=== PATIENT | male | born 1970 | race Two or more races ===

== ENCOUNTER 2019-07-03 17:41 | Inpatient (IN) | payer MEDICAID ==
[~2019-07-03] VITALS: Ht 172.7 cm; Wt 69.4 kg
[2019-07-03 17:45] VITALS: BP 136/84
--- NOTE | 2019-07-03 17:45 | NUR ---
ED Nurse Note: Pt came in confused and sleepy. VSS, Patient biba RA [id number] c/o ETOH, patient was found laying down on the ground with a busted lower lip
--- NOTE | 2019-07-03 18:33 | Diagnostic Imaging Report ---
Indications: Altered mental status Technique: Spiral acquisitions obtained through the brain. Angled axial and coronal 5 x 5 mm slices were reconstructed. Total dose length product 1393.62 mGycm. CTDI vol(s) 70.38 mGy. Dose reduction achieved using automated exposure control Comparison: None. Findings: No acute intracranial hemorrhage or edema. No mass effect or midline shift. Normal hardy-white differentiation. Slightly prominent for age ventricles and extra axial CSF spaces. Mild periventricular deep white matter low-attenuation consistent with chronic microvascular ischemic changes noted Questionable minimal left supraorbital scalp contusion. Intact calvarium. Visualized orbits and sinuses are unremarkable. The mastoids are clear. Impression: Cerebral volume loss and periventricular deep white matter ischemic changes, mild but striking for age Negative for acute intracranial bleed or mass effect This agrees with the preliminary interpretation provided overnight by [facility] teleradiology service. The CT scanner at [facility] is accredited by the [employer] and the scans are performed using protocols designed to limit radiation exposure to as low as reasonably achievable to attain images of sufficient resolution adequate for diagnostic evaluation.
[2019-07-03 18:43] LABS: ANION GAP 10 mmol/L (5-15); BLOOD UREA NITROGEN 3 mg/dL (7-18); CALCIUM 7.4 MG/DL (8.5-10.1); CARBON DIOXIDE 23 MMOL/L (21-32); CHLORIDE 99 MMOL/L (98-107); CREATININE 0.8 MG/DL (0.55-1.30); POTASSIUM 3.5 MMOL/L (3.5-5.1); SODIUM 132 MMOL/L (136-145)
[2019-07-03 18:55] LABS: ALANINE AMINOTRANSFERASE 22 U/L (12-78); ALBUMIN 1.2 G/DL (3.4-5.0); ALBUMIN/GLOBULIN RATIO 0.2 (1.0-2.7); ALKALINE PHOSPHATASE 172 U/L (46-116); ASPARTATE AMINO TRANSFERASE 83 U/L (15-37); BILIRUBIN,TOTAL 1.7 MG/DL (0.2-1.0)
[2019-07-03 18:57] LABS: BILIRUBIN,DIRECT 1.1 MG/DL (0.0-0.3)
--- NOTE | 2019-07-03 19:15 | NUR ---
ED Nurse Note: Recieved report to resume care, pt in bed awake and alert and slightly drowsy, on cardiac monitoring, mild tachycardia, pt has patent iv line intact and patent, pt also with tachypnea, pt has dried blood on mouth, pt denies cp and c/o " a little" abdominal pain, pt has very critical hemoglobin and hematocrit level, will prepare for blood transfusion and hospital admission.
[2019-07-03 19:45] VITALS: BP 116/91
[2019-07-03 19:45] LABS: HEMATOCRIT 14.3 % (42.0-52.0); MEAN CORPUSCULAR VOLUME 83 FL (80-99); PLATELET COUNT 93 K/UL (150-450); RED BLOOD COUNT 1.71 M/UL (4.70-6.10); RED CELL DISTRIBUTION WIDTH 19.5 % (11.6-14.8); WHITE BLOOD COUNT 8.3 K/UL (4.8-10.8)
[2019-07-03 19:47] LABS: HEMOGLOBIN 4.2 G/DL (14.2-18.0)
[2019-07-03 19:50] LABS: INR 1.7 (0.9-1.1)
[2019-07-03 20:35] VITALS: BP 114/76
--- NOTE | 2019-07-03 20:40 | NUR ---
ED Nurse Note: PT STARTED ON BLOOD TRANSFUSION OF PRBC, CONSENT SIGNED, PT STATES HE HAS HAD BEFORRE, DENIES ANY CHAGNES, NO CP, V/S STABLE, PT ON CARDIAC MONITORING, STAYED AT BEDSIDE FIRST 15 MINUTES OF TRANSFUSION, NO S/S OF ADVERSE REACTION NOTED, WILL CONTINUE TO CLOSELY MONITOR PER PROTOCOL.
[2019-07-03] MEDS ORDERED: NKM (20:45)
[2019-07-03 21:30] VITALS: BP 122/73
--- NOTE | 2019-07-03 21:30 | NUR ---
ED Nurse Note: PLACED CALL TO FLOOR UNIT SDU FOR REPORT, WAS INFORMED BY JOSEFINA CANTRELL THAT NURSE IS AT BATHROOM AND WILL CALL BACK, WAITING FOR RETURN CALL FROM JOSEFINA JARAMILLO.
--- NOTE | 2019-07-03 21:31 | Emergency Room Report ---
History of Present Illness General Chief Complaint: Alcohol Intoxication Source: Patient Present Illness HPI 48-year-old male presents ED for evaluation. Brought in by EMS. Found down today. Appears intoxicated. Abrasion to lip. Unable to provide any additional history at this time. Tachycardic. No other aggravating relieving factors. No other associated symptoms Allergies: Coded Allergies: No Known Allergies (Unverified , 07/03/19) Patient History Past Medical History: none Past Surgical History: none Pertinent Family History: none Social History: Reports: alcohol use; Denies: smoking, drug use Immunizations: UTD Reviewed Nursing Documentation: PMH: Agreed; PSxH: Agreed Nursing Documentation-PMH Past Medical History: No Stated History Review of Systems All Other Systems: limited Physical Exam Vital Signs Date Time Temp Pulse Resp B/P (MAP) Pulse Ox O2 Delivery O2 Flow Rate FiO2 07/03/19 17:35 98.4 96 18 136/84 (101) 99 Room Air Sp02 EP Interpretation: reviewed, normal General Appearance: no apparent distress, lethargic, other - intoxicated Head: normocephalic Eyes: bilateral eye normal inspection, bilateral eye PERRL ENT: normal ENT inspection Neck: normal inspection Respiratory: chest non-tender, lungs clear, normal breath sounds, speaking full sentences Cardiovascular #1: regular rate, rhythm, no edema Gastrointestinal: normal bowel sounds, non tender, soft, non-distended, no guarding, no rebound Rectal: deferred Genitourinary: no CVA tenderness Musculoskeletal: other - intoxicated Neurologic: other - intoxicated Psychiatric: other - intxoicated Skin: no rash Lymphatic: normal inspection Procedures Critical Care Time Critical Care Time i. I feel this is a highly complex case requiring extensive working including EKG/Rhythm strip, Xray/CT/US, Blood/urine lab work, repeat exams while in ED, and administration of strong opiates/narcotics for pain control, admission to hospital or close patient follow up. Total time: 60 min bedside evaluation and treatment excludes procedures (EKG). Reason for critical care: alcohol intoxication, anemia, Possible complications: hypotension, hypertension, KS, shock, arrhythmias, metabolic acidosis, end organ damage, respiratory failure. Interventions: labs, EKG, CT head, IVFs, guiac test, blood transfusion Course: Presenting with intoxication. Found down. CT head negative. Hemoglobin 4.2. Alcohol elevated, LFTs elevated, guaiac negative. Given IV fluids. Blood transfusion started. Vitals stable Consultations: nursing staff, EMS, family Performed by: Dr Aaron Tolerated well condition = serious j. because of unstable vital signs this patient had a condition that could potentially threaten life or limb. I feel this is a critical patient who required my full attention while patient was considered critical. Total Critical Care Time excluding procedures was greater than 60 minutes Medical Decision Making Diagnostic Impression: Primary Impression: Acute alcoholic intoxication Qualified Codes: F10.929 - Alcohol use, unspecified with intoxication, unspecified Additional Impression: Anemia Qualified Codes: D64.9 - Anemia, unspecified ER Course Hospital Course 48 yo M presents to ED AMS. found down. Differential diagnoses include: intracranial injury, ETOH, psychosis Clinical course Patient placed on stretcher. After initial history and physical I ordered labs , EKG, CT head, IVFs Labs- Hb 4.2, LFTs elevated, ETOH elevated EKG - sinus tachycardia no acute ischemic changes interpreted by me CT Head - no acute process Rectal exam performed. Guaiac negative. PRBCs ordered. IV fluids continued. Vitals stable Patient admitted to Dr Gallo's service for further care and support Diagnosis - acute alcohol intoxication, anemia admitted to SDU in serious conditoin Labs Test 07/03/19 18:07 07/03/19 18:55 Sodium Level 132 MMOL/L (136-145) Potassium Level 3.5 MMOL/L (3.5-5.1) Chloride Level 99 MMOL/L (98-107) Carbon Dioxide Level 23 MMOL/L (21-32) Anion Gap 10 mmol/L (5-15) Blood Urea Nitrogen 3 mg/dL (7-18) Creatinine 0.8 MG/DL (0.55-1.30) Estimat Glomerular Filtration Rate > 60 mL/min (>60) Glucose Level 95 MG/DL (74-106) Calcium Level 7.4 MG/DL (8.5-10.1) Total Bilirubin 1.7 MG/DL (0.2-1.0) Direct Bilirubin 1.1 MG/DL (0.0-0.3) Aspartate Amino Transf (AST/SGOT) 83 U/L (15-37) Alanine Aminotransferase (ALT/SGPT) 22 U/L (12-78) Alkaline Phosphatase 172 U/L (46-116) Total Protein 8.4 G/DL (6.4-8.2) Albumin 1.2 G/DL (3.4-5.0) Globulin 7.2 g/dL Albumin/Globulin Ratio 0.2 (1.0-2.7) Salicylates Level < 3.0 ug/mL (2.8-20) Acetaminophen Level < 2 MCG/ML (10-30) Serum Alcohol 267 mg/dL White Blood Count 8.3 K/UL (4.8-10.8) Red Blood Count 1.71 M/UL (4.70-6.10) Hemoglobin 4.2 G/DL (14.2-18.0) Hematocrit 14.3 % (42.0-52.0) Mean Corpuscular Volume 83 FL (80-99) Mean Corpuscular Hemoglobin 24.6 PG (27.0-31.0) Mean Corpuscular Hemoglobin Concent 29.5 G/DL (32.0-36.0) Red Cell Distribution Width 19.5 % (11.6-14.8) Platelet Count 93 K/UL (150-450) Mean Platelet Volume 6.7 FL (6.5-10.1) Neutrophils (%) (Auto) % (45.0-75.0) Lymphocytes (%) (Auto) % (20.0-45.0) Monocytes (%) (Auto) % (1.0-10.0) Eosinophils (%) (Auto) % (0.0-3.0) Basophils (%) (Auto) % (0.0-2.0) Differential Total Cells Counted 100 Neutrophils % (Manual) 85 % (45-75) Lymphocytes % (Manual) 8 % (20-45) Monocytes % (Manual) 4 % (1-10) Eosinophils % (Manual) 0 % (0-3) Basophils % (Manual) 0 % (0-2) Metamyelocytes % 2 % (0-0) Band Neutrophils 1 % (0-8) Nucleated Red Blood Cells 2 /100 WBC Platelet Estimate Decreased Platelet Morphology Normal Polychromasia 2+ Hypochromasia 3+ Anisocytosis 3+ Target Cells 1+ Schistocytes 1+ Prothrombin Time 17.3 SEC (9.30-11.50) Prothromb Time International Ratio 1.7 (0.9-1.1) Activated Partial Thromboplast Time 39 SEC (23-33) EKG Diagnostic Results Rate: tachycardiac Rhythm: NSR ST Segments: no acute changes ASA given to the pt in ED: No Rhythm Strip Diag. Results EP Interpretation: yes Rhythm: NSR, no PVC's, no ectopy CT/MRI/US Diagnostic Results CT/MRI/US Diagnostic Results : Imaging Test Ordered: CT Head Impression no acute process Last Vital Signs Date Time Temp Pulse Resp B/P (MAP) Pulse Ox O2 Delivery O2 Flow Rate FiO2 07/03/19 20:35 98.2 118 30 114/76 95 Room Air Status: improved Disposition: ADMITTED INPATIENT Condition: Serious Referrals: NOT CHOSEN IPA/,REFERRING (PCP) Deangelo Aaron MD Jul 03, 2019 21:31
--- NOTE | 2019-07-03 21:46 | NUR ---
ED Nurse Note: RECIEVED RETURN CALL FROM JOSEFINA JARAMILLO ON UNIT FOR ADMISSION, PT CONTINUES TO REST QUIETLY IN BED, AWAKE AND ALERT, IV SITE INTACT AND PATENT WITH PRBC'S TRANSFUSING, PT TOLERATING WELL, FADYS CP, REMAINS WITH ABDOMINAL PAIN AT 6/10, NO EMESIS BUT CONTINUES TO SPIT BLOOD TINGED SPUTUM, PT UNDRESSED, VERY DIRTY AND DISCHEVELED, NO OPEN WOUNDS, NOTED WITH BILAT LE EDEMA AND SEVERE ASCITIES, MD IS AWARE, PT BEING TAKEN TO FLOOR UNIT FOR ADMISISON, NAD NOTED DURING PT TRANSPORT VIA GURNEY AND ACLS PROTOCOLS WITH RN AND ER-TECH, PT HAS ALL BELONGINGS AND BLOOD TRANSFUSING VIA PUMP.
--- NOTE | 2019-07-03 22:00 | NUR ---
NURSE NOTES: [facility] called and gave report. awaiting pt arrival.
[2019-07-03 22:15] VITALS: BP 124/76
--- NOTE | 2019-07-03 22:15 | NUR ---
NURSE NOTES: blood from ER still transfusing.
--- NOTE | 2019-07-03 22:15 | NUR ---
NURSE NOTES: Pt brought up with Monica Hayden RN and charles gant. pt brought up with all belongings. pt vital signs is stable. pt is alert and oriented times 3, able to follow simple commands. pt pigment mixer currently shows ST, no other abnormalities noted. pt is on room air, able to sat at 100%, no abnormalities noted. pt abdomen appears round and hard, will endorse to admitting MD ball. bed locked, low, armed, bed rails up times 3, call light within reach. will establish plan of care.
--- NOTE | 2019-07-03 22:33 | NUR ---
NURSE NOTES: called MD Deshaun Lindsey for admitting orders, left a message. awaiting a call back. awaiting new orders.
--- NOTE | 2019-07-03 22:50 | NUR ---
NURSE NOTES: MD Moreno called in behalf of MD Meade. he gave admitting orders.
--- NOTE | 2019-07-03 23:50 | NUR ---
NURSE NOTES: 1st U PRBC sent back to lab, transfusion complete.
[2019-07-04] VITALS: BP 122/73
--- NOTE | 2019-07-04 00:05 | NUR ---
NURSE NOTES: 2nd unit blood started transfusing.
--- NOTE | 2019-07-04 02:43 | NUR ---
NURSE NOTES: 2nd U PRBC sent back to lab. transfusion complete.
[2019-07-04 04:00] VITALS: BP 121/81
[2019-07-04 05:37] LABS: HEMATOCRIT 23.8 % (42.0-52.0); HEMOGLOBIN 7.1 G/DL (14.2-18.0); MEAN CORPUSCULAR VOLUME 87 FL (80-99); PLATELET COUNT 97 K/UL (150-450); RED BLOOD COUNT 2.73 M/UL (4.70-6.10); RED CELL DISTRIBUTION WIDTH 18.9 % (11.6-14.8); WHITE BLOOD COUNT 8.5 K/UL (4.8-10.8)
[2019-07-04 06:19] LABS: ALANINE AMINOTRANSFERASE 23 U/L (12-78); ALBUMIN 1.3 G/DL (3.4-5.0); ALBUMIN/GLOBULIN RATIO 0.2 (1.0-2.7); ALKALINE PHOSPHATASE 168 U/L (46-116); ANION GAP 8 mmol/L (5-15); ASPARTATE AMINO TRANSFERASE 89 U/L (15-37); BILIRUBIN,TOTAL 2.7 MG/DL (0.2-1.0); BLOOD UREA NITROGEN 2 mg/dL (7-18); CALCIUM 7.4 MG/DL (8.5-10.1); CARBON DIOXIDE 23 MMOL/L (21-32); CHLORIDE 103 MMOL/L (98-107); CREATININE 0.7 MG/DL (0.55-1.30); POTASSIUM 3.3 MMOL/L (3.5-5.1); SODIUM 134 MMOL/L (136-145)
[2019-07-04 06:24] LABS: BILIRUBIN,DIRECT 1.4 MG/DL (0.0-0.3)
--- NOTE | 2019-07-04 06:31 | NUR ---
NURSE NOTES: called MD ball office. relayed a message pt Potassium is 3.3. answering service stated they will contact land acquisition manager . awaiting new orders.
--- NOTE | 2019-07-04 07:29 | NUR ---
NURSE NOTES: Received report from JOSEFINA Jose. Patient is resting in bed, in stable condition. No s/sx of SOB, breathing is even and unlabored, room air. Denies any presence of pain or discomfort at this time. Patient noted with scab on bottom lip, noted upon admission. Bed is in lowest position, brakes engaged. Call light is kept within easy reach. Will continue to monitor patient.
[2019-07-04 08:00] VITALS: BP 116/76
[2019-07-04] MEDS: Pantoprazole Inj IVP SCH ×2 (08:56→20:38)
--- NOTE | 2019-07-04 09:00 | NUR ---
NURSE NOTES: Dr. Guo seen and examined patient. Ordered Banana bag x 1, thiamine 100 mg PO QD, Folic acid 1 tab PO QD, D5 NS 50 cc/hr. Orders entered, noted, and carried out. Will continue to monitor patient.
--- NOTE | 2019-07-04 09:10 | NUR ---
NURSE NOTES: Patient noted with cut on bottom lip, per patient states fell and hit his lip prior to coming to hospital; Head CT results noted. Assessed oral cavity, no active bleeding noted. Charge nurse aware. Will continue to monitor patient.
--- NOTE | 2019-07-04 09:41 | NUR ---
CASE MANAGEMENT: INITIAL REVIEW 48 YO M [facility] FROM [facility] [employer] CC: INJURY TO LOWER LIP. ETOH INTOXICATION. PMHx: NONE STATED SI:ETHANOL INTOXICATION. T 98.4 HR 96 RR 18 B/P 136/84 SATS 99% ON RA HGB 4.2 HCT 14.3 NA 132 BUN 3 CA 7.4 TBILI 1.7 DBILI 1.1 AST 83 ALP 172 UTOX (+ALCOHOL 267) IS: NS BOLUS X2 CT HEAD Impression: Cerebral volume loss and periventricular deep white matter ischemic changes, mild but striking for age. Negative for acute intracranial bleed or mass effect. PATIENT ADMITTED TO SDU 07/03/2019 @ 7526 DCP: PATIENT TO BE DISCHARGED TO APPROPRIATE LOCATION ONCE MEDICALLY CLEARED. PLAN OF CARE: VENOUS DUPLEX Addendum: 07/04/19 at 1729 by Amber Phillips CM INTERQUAL MET
[2019-07-04] MEDS: Thiamine 100mg tab ORAL SCH (10:14)
[2019-07-04] MEDS ORDERED: Thiamine 100mg in D5W 55ml IVPB ONE ×2 (11:00→19:00)
[2019-07-04] MEDS ORDERED: Folic Acid 1 MG, Magnesium Sulfate 2,000 MG, Multivitamin - 12 Injection 10 ML in Sodiu... IV ONE ×2 (11:00→19:00)
--- NOTE | 2019-07-04 11:11 | NUR ---
XRAY IS DELAYED, TOLD TO RETURN AFTER ULTRASOUND IS COMPLETE-NM/JT/NF
[2019-07-04 12:00] VITALS: BP 139/83
[2019-07-04 12:24] LABS: FERRITIN 46 NG/ML (8-388)
--- NOTE | 2019-07-04 12:37 | Cardiology Report ---
APPROVED REPORT EKG Measurement Heart [id number] Sinus tachycardia Anterolateral infarct, age undetermined Abnormal ECG
--- NOTE | 2019-07-04 12:52 | Diagnostic Imaging Report ---
Indication: Abdominal pain Technique: Supine view of the abdomen Comparison: none Findings: The abdomen is diffusely dense. This, plus central location of small bowel gas, suggests considerable ascites fluid is present. Small bowel loops are gas filled, upper limits of normal in caliber but not frankly dilated except for a single prominent small bowel loop in the left upper quadrant. Impression: Evidence of massive ascites Prominent gas-filled central small bowel loops, with single dilated left upper quadrant small bowel. Findings are nonspecific, could indicate ileus. Partial/early small bowel obstruction also possible
[2019-07-04] MEDS: D5NS 1,000 ML IV SCH (13:09)
[2019-07-04 13:18] LABS: IRON 80 ug/dL (50-175); TOTAL IRON BINDING CAPACITY 106 ug/dL (250-450)
--- NOTE | 2019-07-04 13:18 | General Progress Note ---
Assessment/Plan Problem List: (1) Anemia ICD Codes: D64.9 - Anemia, unspecified SNOMED: [id number] Qualifiers: Qualified Codes: D64.9 - Anemia, unspecified (2) Acute alcoholic intoxication ICD Codes: F10.929 - Alcohol use, unspecified with intoxication, unspecified SNOMED: 79447202, [id number] Qualifiers: Qualified Codes: F10.929 - Alcohol use, unspecified with intoxication, unspecified Assessment/Plan: npo vit k fu stool ob no obvious GIB per nurses banana bag fu labs paracentesis if needed protonix Subjective ROS Limited/Unobtainable: Yes Allergies: Coded Allergies: No Known Allergies (Unverified , 07/03/19) Objective Last 24 Hour Vital Signs Date Time Temp Pulse Resp B/P (MAP) Pulse Ox O2 Delivery O2 Flow Rate FiO2 07/04/19 12:00 96.8 99 19 139/83 (101) 07/04/19 08:00 Room Air 07/04/19 08:00 98.0 102 19 116/76 (89) 07/04/19 07:37 96 07/04/19 04:00 99 07/04/19 04:00 98.4 100 19 121/81 (94) 07/04/19 04:00 Room Air 07/04/19 00:00 98.0 91 19 122/73 (89) 07/04/19 00:00 99 07/04/19 00:00 Room Air 07/03/19 22:17 103 07/03/19 22:15 98.1 105 19 124/76 (92) 07/03/19 22:15 Room Air 07/03/19 21:55 98.2 111 26 122/73 96 Room Air 07/03/19 21:30 98.2 111 26 122/73 96 Room Air 07/03/19 20:35 98.2 118 30 114/76 95 Room Air 07/03/19 19:45 98.4 111 26 116/91 97 Room Air 07/03/19 17:45 112 30 Room Air 07/03/19 17:45 98.4 109 36 136/84 99 Room Air 07/03/19 17:35 98.4 96 18 136/84 (101) 99 Room Air Intake and Output 07/03/19 07/04/19 19:00 07:00 Intake Total 0 ml 1000 ml Output Total 400 ml Balance 0 ml 600 ml Intake Oral 0 ml IV Total 1000 ml Output Urine Total 400 ml Laboratory Tests 07/03/19 18:07: Sodium Level 132L, Potassium Level 3.5, Chloride Level 99, Carbon Dioxide Level 23, Anion Gap 10, Blood Urea Nitrogen 3L, Creatinine 0.8, Estimat Glomerular Filtration Rate > 60, Glucose Level 95, Calcium Level 7.4L, Total Bilirubin 1.7H , Direct Bilirubin 1.1H, Aspartate Amino Transf (AST/SGOT) 83H, Alanine Aminotransferase (ALT/SGPT) 22, Alkaline Phosphatase 172H, Total Protein 8.4H, Albumin 1.2L, Globulin 7.2, Albumin/Globulin Ratio 0.2L, Salicylates Level < 3.0 , Acetaminophen Level < 2L, Serum Alcohol 267 07/03/19 18:55: White Blood Count 8.3, Red Blood Count 1.71L, Hemoglobin 4.2*L, Hematocrit 14.3L , Mean Corpuscular Volume 83, Mean Corpuscular Hemoglobin 24.6L, Mean Corpuscular Hemoglobin Concent 29.5L, Red Cell Distribution Width 19.5H, Platelet Count 93L, Mean Platelet Volume 6.7, Neutrophils (%) (Auto) , Lymphocytes (%) (Auto) , Monocytes (%) (Auto) , Eosinophils (%) (Auto) , Basophils (%) (Auto) , Differential Total Cells Counted 100, Neutrophils % ( Manual) 85H, Lymphocytes % (Manual) 8L, Monocytes % (Manual) 4, Eosinophils % ( Manual) 0, Basophils % (Manual) 0, Metamyelocytes % 2H, Band Neutrophils 1, Nucleated Red Blood Cells 2, Platelet Estimate DecreasedL, Platelet Morphology Normal, Polychromasia 2+, Hypochromasia 3+, Anisocytosis 3+, Target Cells 1+, Schistocytes 1+, Prothrombin Time 17.3H, Prothromb Time International Ratio 1.7H , Activated Partial Thromboplast Time 39H 07/04/19 03:32: Sodium Level 134L, Potassium Level 3.3L, Chloride Level 103, Carbon Dioxide Level 23, Anion Gap 8, Blood Urea Nitrogen 2L, Creatinine 0.7, Estimat Glomerular Filtration Rate > 60, Glucose Level 79, Calcium Level 7.4L, Total Bilirubin 2.7H, Direct Bilirubin 1.4H, Aspartate Amino Transf (AST/SGOT) 89H, Alanine Aminotransferase (ALT/SGPT) 23, Alkaline Phosphatase 168H, Total Protein 8.6H, Albumin 1.3L, Globulin 7.3, Albumin/Globulin Ratio 0.2L, White Blood Count 8.5, Red Blood Count 2.73L, Hemoglobin 7.1#L, Hematocrit 23.8#L, Mean Corpuscular Volume 87, Mean Corpuscular Hemoglobin 26.1L, Mean Corpuscular Hemoglobin Concent 29.9L, Red Cell Distribution Width 18.9H, Platelet Count 97L , Mean Platelet Volume 8.1, Neutrophils (%) (Auto) , Lymphocytes (%) (Auto) , Monocytes (%) (Auto) , Eosinophils (%) (Auto) , Basophils (%) (Auto) , Differential Total Cells Counted 100, Neutrophils % (Manual) 84H, Lymphocytes % (Manual) 6L, Monocytes % (Manual) 5, Eosinophils % (Manual) 0, Basophils % ( Manual) 0, Band Neutrophils 3, Platelet Estimate DecreasedL, Platelet Morphology Normal, Hypochromasia 2+, Anisocytosis 2+, Myelocytes % 2H, Iron Level [Pending], Unsaturated Iron Binding [Pending], Ferritin 46, Troponin I 0.024, Vitamin B12 Level [Pending], Folate [Pending], Thyroid Stimulating Hormone (TSH) 2.321, Free Thyroxine 2.23H, Hepatitis A IgM Antibody [Pending], Hepatitis B Surface Antigen [Pending], Hepatitis B Core IgM Antibody [Pending], Hepatitis C Antibody [Pending], HIV (1&2) Antibody Rapid Negative Height (Feet): 5 Height (Inches): 8.00 Weight (Pounds): 180 General Appearance: no apparent distress EENT: normal ENT inspection Neck: supple Cardiovascular: normal rate Respiratory/Chest: lungs clear Abdomen: non tender, soft, distended Extremities: non-tender Robert Guzman MD Jul 04, 2019 13:18
[2019-07-04 13:19] LABS: % IRON SATURATION 75 % (15-50)
--- NOTE | 2019-07-04 13:41 | Cardiology Report ---
APPROVED REPORT EXAM: Two-dimensional and M-mode echocardiogram with Doppler and color Doppler. INDICATION Chest Pain M-Mode DIMENSIONS IVSd1.1 (0.7-1.1cm)Left Atrium (MM)3.1 (1.6-4.0cm) LVDd5.3 (3.5-5.6cm)Aortic Root3.7 (2.0-3.7cm) PWd1.4 (0.7-1.1cm)Aortic Cusp Exc.1.8 (1.5-2.0cm) IVSs1.5 cm LVDs3.5 (2.5-4.0cm) PWs1.5 cm Technically difficult study due to combative patient. Normal left ventricular chamber size, systolic function and wall motion to extent visualized. Left ventricular ejection fraction estimated to be 60-65 %. No evidence of left ventricular hypertrophy. No pericardial effusion. Mild left atrial enlargement . Right cardiac chamber sizes are within normal limits. Focal aortic valve sclerosis with adequate cusp excursion. Thickened mitral valve leaflets with normal excursion. Mitral annulus and aortic root calcification. Normal pulmonic valve structure. Normal tricuspid valve structure. IVC at normal size with physiologic collapse. A color flow and spectral Doppler study was performed and revealed: Trace aortic insufficiency. Trace mitral regurgitation. Mitral diastolic velocities suggest reduced left ventricular relaxation c/w mild LV diastolic dysfunction (Grade I ). Trace tricuspid regurgitation. Tricuspid systolic velocities suggests peak right ventricular systolic pressure of 23 mmHg.
[2019-07-04 14:19] LABS: APPEARANCE,URINE CLEAR; BILIRUBIN, URINE 2+ (NEGATIVE); COLOR,URINE BROWN; GLUCOSE, URINE (UA) NEGATIVE (NEGATIVE); KETONES,URINE 2+ (NEGATIVE); LEUKOCYTE ESTERASE ,URINE 1+ (NEGATIVE); NITRITE,URINE NEGATIVE (NEGATIVE); PH,URINE 6 (4.5-8.0); PROTEIN,URINE 1+ (NEGATIVE); UROBILINOGEN,URINE 8 MG/DL (0.0-1.0)
[2019-07-04] MEDS ORDERED: Phytonadione 1 MG in D5W 55 ML IVPB SCH (14:30)
--- NOTE | 2019-07-04 14:32 | NUR ---
NURSE NOTES: Called Dr. Guzman's office and left message with pathology secretary/transcriptionist regarding abdominal ultra sound results. Noted. [place] acknowledged, will relay message. Noted. Will continue to monitor patient.
--- NOTE | 2019-07-04 15:30 | NUR ---
HOMELESS COORDINATOR HC spoke with patient and patient is alert and oriented. Criminal Profiler translated, Patient does not have a contact number. Patient states he is chronically homeless and does not want resources for intermediate. Patient states he has been homeless for one years and stays around the [facility]. Patient states his homelessness was due to marriage issues with his that caused depression and alcoholism. Patient states he has family and two sons but doesn't know how to contact them. Patient states he has no income and recycles for money. Patient states he has had a drink in two years but, was admitted for intoxication and refuse resources. Patient states he does not suffer from any mental illness. Patient states upon discharge he will go to his friends house for work and a place to live. Patient could not provide friends name, contact number or address. Patient states he would just like bus tokens and money. Patient states he does not have a follow-up doctor and would not like resources or a follow up appt for a clinic. HC will still provide resources upon discharge. Patient continues to require medical intervention. Will continue to monitor and assist as needed.
--- NOTE | 2019-07-04 15:53 | Diagnostic Imaging Report ---
Indication: Abnormal liver function tests Technique: Gonsales-scale and duplex images of the upper abdomen were obtained Comparison: none Findings: There is ascites fluid present. Gallbladder is unremarkable, without stones, wall thickening, nor pericholecystic fluid. Sonographic Washington's sign is negative. Common bile duct measures 3 mm in diameter. No intrahepatic biliary ductal dilatation. Liver demonstrates slightly increased echogenicity. No focal abnormality. It demonstrates surface nodularity. Portal vein and hepatic veins are patent. Pancreas is obscured by bowel gas. Spleen is unremarkable. Left kidney measures 11.4 cm in length. Right kidney measures 11.1 cm length. Both kidneys demonstrate normal echogenicity. There is no hydronephrosis. No focal abnormality . Abdominal aorta is partially obscured by bowel gas, visualized portions are non-aneurysmal . Impression: Hepatic surface nodularity, suggestive of cirrhosis. Ascites Negative for gallstones or dilated bile ducts Note inability to visualize the pancreas and portions of the abdominal aorta
[2019-07-04 15:57] VITALS: BP 138/92
--- NOTE | 2019-07-04 16:28 | NUR ---
Social Service Note SW and CM Coordinator met with patient to assess for homelessness. CM Coordinator provided Tanzanian translation. Patient is alert, oriented and verbally responsive in Tanzanian. Patient contributes his homelessness to the inability to find steady work. Patient states he has been homeless for about a year. Patient states the mother of his children and children live in [place] but has no communication with them. Patient states he has been an alcoholic for 3 years. Patient states he drinks beer daily. 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 Patient has no other source of income. Patient states he sometimes sleeps on the streets but he does have multiple friends who he is able to stay with. Upon discharge patient states he with require bus tokens to return to friend's house. Patient is unable to provide an address or phone number of friend. Patient states he doesn't have an emergency contact. Patient states he hasn't sought out medical treatment prior to this event. Patient is open to community care clinic resources upon discharge. Patient states he primarily stays in the [facility] and this location is safe and familiar to patient. SW provided education on continued ETOH use and the negative effects it's having on patient's body. Patient acknowledged understanding. Substance abuse options are limited due to patient's lack of financial and medical funding. SW discussed homeless health care of [facility] centers. Patient appear receptive to resources. Patient screen by Franky-tulio PARRA, franky-tulio will be restricted due to patient's immigration status. Homeless Coordinator will assess for additional resources. Will continue to monitor and be available as needed.
--- NOTE | 2019-07-04 16:59 | History and Physical ---
History of Present Illness General Reason for Hospitalization: Alcohol Intoxication Present Illness Allergies: Coded Allergies: No Known Allergies (Unverified , 07/03/19) Medication History Scheduled No Known Medications* (NKM - No Known Medications*), 0 ., (Reported) Patient History Healthcare decision maker Resuscitation status Full Code Advanced Directive on File Yes Physical Exam Last 24 Hour Vital Signs Date Time Temp Pulse Resp B/P (MAP) Pulse Ox O2 Delivery O2 Flow Rate FiO2 07/04/19 16:00 Room Air 07/04/19 15:57 97.7 100 19 138/92 (107) 07/04/19 12:00 96.8 99 19 139/83 (101) 07/04/19 12:00 Room Air 07/04/19 12:00 96 07/04/19 08:00 Room Air 07/04/19 08:00 98.0 102 19 116/76 (89) 07/04/19 07:37 96 07/04/19 04:00 99 07/04/19 04:00 98.4 100 19 121/81 (94) 07/04/19 04:00 Room Air 07/04/19 00:00 98.0 91 19 122/73 (89) 07/04/19 00:00 99 07/04/19 00:00 Room Air 07/03/19 22:17 103 07/03/19 22:15 98.1 105 19 124/76 (92) 07/03/19 22:15 Room Air 07/03/19 21:55 98.2 111 26 122/73 96 Room Air 07/03/19 21:30 98.2 111 26 122/73 96 Room Air 07/03/19 20:35 98.2 118 30 114/76 95 Room Air 07/03/19 19:45 98.4 111 26 116/91 97 Room Air 07/03/19 17:45 112 30 Room Air 07/03/19 17:45 98.4 109 36 136/84 99 Room Air 07/03/19 17:35 98.4 96 18 136/84 (101) 99 Room Air Intake and Output 07/03/19 07/04/19 19:00 07:00 Intake Total 0 ml 1000 ml Output Total 400 ml Balance 0 ml 600 ml Intake Oral 0 ml IV Total 1000 ml Output Urine Total 400 ml Laboratory Tests Test 07/03/19 18:07 07/03/19 18:55 07/04/19 03:32 07/04/19 13:36 Sodium Level 132 MMOL/L (136-145) L 134 MMOL/L (136-145) L Potassium Level 3.5 MMOL/L (3.5-5.1) 3.3 MMOL/L (3.5-5.1) L Chloride Level 99 MMOL/L (98-107) 103 MMOL/L (98-107) Carbon Dioxide Level 23 MMOL/L (21-32) 23 MMOL/L (21-32) Anion Gap 10 mmol/L (5-15) 8 mmol/L (5-15) Blood Urea Nitrogen 3 mg/dL (7-18) L 2 mg/dL (7-18) L Creatinine 0.8 MG/DL (0.55-1.30) 0.7 MG/DL (0.55-1.30) Estimat Glomerular Filtration Rate > 60 mL/min (>60) > 60 mL/min (>60) Glucose Level 95 MG/DL (74-106) 79 MG/DL (74-106) Calcium Level 7.4 MG/DL (8.5-10.1) L 7.4 MG/DL (8.5-10.1) L Total Bilirubin 1.7 MG/DL (0.2-1.0) H 2.7 MG/DL (0.2-1.0) H Direct Bilirubin 1.1 MG/DL (0.0-0.3) H 1.4 MG/DL (0.0-0.3) H Aspartate Amino Transf (AST/SGOT) 83 U/L (15-37) H 89 U/L (15-37) H Alanine Aminotransferase (ALT/SGPT) 22 U/L (12-78) 23 U/L (12-78) Alkaline Phosphatase 172 U/L (46-116) H 168 U/L (46-116) H Total Protein 8.4 G/DL (6.4-8.2) H 8.6 G/DL (6.4-8.2) H Albumin 1.2 G/DL (3.4-5.0) L 1.3 G/DL (3.4-5.0) L Globulin 7.2 g/dL 7.3 g/dL Albumin/Globulin Ratio 0.2 (1.0-2.7) L 0.2 (1.0-2.7) L Salicylates Level < 3.0 ug/mL (2.8-20) Acetaminophen Level < 2 MCG/ML (10-30) L Serum Alcohol 267 mg/dL White Blood Count 8.3 K/UL (4.8-10.8) 8.5 K/UL (4.8-10.8) Red Blood Count 1.71 M/UL (4.70-6.10) L 2.73 M/UL (4.70-6.10) L Hemoglobin 4.2 G/DL (14.2-18.0) *L 7.1 G/DL (14.2-18.0) #L Hematocrit 14.3 % (42.0-52.0) L 23.8 % (42.0-52.0) #L Mean Corpuscular Volume 83 FL (80-99) 87 FL (80-99) Mean Corpuscular Hemoglobin 24.6 PG (27.0-31.0) L 26.1 PG (27.0-31.0) L Mean Corpuscular Hemoglobin Concent 29.5 G/DL (32.0-36.0) L 29.9 G/DL (32.0-36.0) L Red Cell Distribution Width 19.5 % (11.6-14.8) H 18.9 % (11.6-14.8) H Platelet Count 93 K/UL (150-450) L 97 K/UL (150-450) L Mean Platelet Volume 6.7 FL (6.5-10.1) 8.1 FL (6.5-10.1) Neutrophils (%) (Auto) % (45.0-75.0) % (45.0-75.0) Lymphocytes (%) (Auto) % (20.0-45.0) % (20.0-45.0) Monocytes (%) (Auto) % (1.0-10.0) % (1.0-10.0) Eosinophils (%) (Auto) % (0.0-3.0) % (0.0-3.0) Basophils (%) (Auto) % (0.0-2.0) % (0.0-2.0) Differential Total Cells Counted 100 100 Neutrophils % (Manual) 85 % (45-75) H 84 % (45-75) H Lymphocytes % (Manual) 8 % (20-45) L 6 % (20-45) L Monocytes % (Manual) 4 % (1-10) 5 % (1-10) Eosinophils % (Manual) 0 % (0-3) 0 % (0-3) Basophils % (Manual) 0 % (0-2) 0 % (0-2) Metamyelocytes % 2 % (0-0) H Band Neutrophils 1 % (0-8) 3 % (0-8) Nucleated Red Blood Cells 2 /100 WBC Platelet Estimate Decreased L Decreased L Platelet Morphology Normal Normal Polychromasia 2+ Hypochromasia 3+ 2+ Anisocytosis 3+ 2+ Target Cells 1+ Schistocytes 1+ Prothrombin Time 17.3 SEC (9.30-11.50) H Prothromb Time International Ratio 1.7 (0.9-1.1) H Activated Partial Thromboplast Time 39 SEC (23-33) H Myelocytes % 2 % (0-0) H Iron Level 80 ug/dL (50-175) Total Iron Binding Capacity 106 ug/dL (250-450) L Percent Iron Saturation 75 % (15-50) H Unsaturated Iron Binding 26 ug/dL (112-346) L Ferritin 46 NG/ML (8-388) Troponin I 0.024 ng/mL (0.000-0.056) Vitamin B12 Level 803 PG/ML (193-986) Folate 5.1 NG/ML (8.6-58.9) L Thyroid Stimulating Hormone (TSH) 2.321 uiU/mL (0.358-3.740) Free Thyroxine 2.23 NG/DL (0.76-1.46) H Hepatitis A IgM Antibody Pending Hepatitis B Surface Antigen Pending Hepatitis B Core IgM Antibody Pending Hepatitis C Antibody Pending HIV (1&2) Antibody Rapid Negative (NEGATIVE) Urine Color Brown Urine Appearance Clear Urine pH 6 (4.5-8.0) Urine Specific [place] 1.015 (1.005-1.035) Urine Protein 1+ (NEGATIVE) H Urine Glucose (UA) Negative (NEGATIVE) Urine Ketones 2+ (NEGATIVE) H Urine Blood 2+ (NEGATIVE) H Urine Nitrite Negative (NEGATIVE) Urine Bilirubin 2+ (NEGATIVE) H Urine Ictotest Positive (NEGATIVE) Urine Urobilinogen 8 MG/DL (0.0-1.0) H Urine Leukocyte Esterase 1+ (NEGATIVE) H Urine RBC 5-10 /HPF (0 - 0) H Urine WBC 0-2 /HPF (0 - 0) Urine Squamous Epithelial Cells None /LPF (NONE/OCC) Urine Bacteria Occasional /HPF (NONE) Urine Mucus Many /LPF (NONE/OCC) H Urine Opiates Screen Negative (NEGATIVE) Urine Barbiturates Screen Negative (NEGATIVE) Phencyclidine (PCP) Screen Negative (NEGATIVE) Urine Amphetamines Screen Negative (NEGATIVE) Urine Benzodiazepines Screen Negative (NEGATIVE) Urine Cocaine Screen Negative (NEGATIVE) Urine Marijuana (THC) Screen Negative (NEGATIVE) Test 07/04/19 16:00 Troponin I Pending Height (Feet): 5 Height (Inches): 8.00 Weight (Pounds): 180 Medications Current Medications Medications (Trade) Dose Ordered Sig/Tanja Route PRN Reason Start Time Stop Time Status Last Admin Dose Admin Dextrose/Sodium Chloride 1,000 ml @ 50 mls/hr Q20H IV 07/04/19 12:58 08/03/19 12:57 07/04/19 13:09 Folic Acid (Folate) 1 mg DAILY ORAL 07/04/19 10:30 08/03/19 10:29 07/04/19 10:14 Folic Acid 1 mg/ Magnesium Sulfate 2000 mg/ Multivitamins 10 ml/Sodium Chloride 1,014.2 ml @ 125 mls/ hr ONCE ONCE IV 07/04/19 19:00 07/05/19 03:06 Pantoprazole (Protonix) 40 mg EVERY 12 HOURS IVP 07/04/19 09:00 08/03/19 08:59 Thiamine HCl (Vitamin B1) 100 mg DAILY ORAL 07/04/19 10:30 08/03/19 10:29 07/04/19 10:14 Thiamine HCl 100 mg/Dextrose 56 ml @ 112 mls/hr ONCE ONCE IVPB 07/04/19 19:00 07/04/19 19:29 Assessment/Plan Diagnosis Hardy I: 48-year-old male with past medical history of EtOH abuse presented found down. #Anemia, likely might multifactorial including acute blood loss anemia, anemia of chronic disease -Hematology consult, appreciate recs -Iron panel, folate, B12 -Initial hemoglobin of 4, given 4 units in the ED, hemoglobin this morning 7 -Transfuse 1 unit -GI consult, appreciate recs -Keep n.p.o. until evaluation by GI #Liver cirrhosis secondary to EtOH, as evidenced by exam, low platelets, low albumin, elevated INR, history of EtOH -Abdominal ultrasound -Supportive care -Monitor platelets, bilirubin -Paracentesis as needed symptoms such as abdominal pain and shortness of breath #Substance abuse -Check UDS -Check hepatitis and HIV -Social work Consult - Psyche consult, appreciate recs #Hypokalemia Replace, continue to monitor #Advanced care planning discussion with patient. Time spent: 17 minutes. Patient would like to be full code The time of my note may not reflect the time of my patient encounter. Tori Etienne DO Jul 04, 2019 16:59
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
--- NOTE | 2019-07-04 19:29 | NUR ---
HAND-OFF: Report given to JOSEFINA Lino.
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
[2019-07-04 20:00] VITALS: BP 153/93
[2019-07-05] VITALS: BP 134/83
--- NOTE | 2019-07-05 | NUR ---
NURSE NOTES: Pt is sleeping on the bed and confused. Pt is trying to get out of bed without assistance but his gait is unstable. Given fall precaution but he didn't understand. Placed fall precaution; side rails upx2, Call light within reach, room placed closed to nursing station. Apply yellow socks. Will continue to monitor any change of condition.
[2019-07-05] MEDS: LORazepam 0.5mg tab ORAL PRN ×3 (01:08→20:33)
[2019-07-05 04:00] VITALS: BP 150/95
[2019-07-05 04:27] LABS: HEMATOCRIT 24.6 % (42.0-52.0); HEMOGLOBIN 7.6 G/DL (14.2-18.0); MEAN CORPUSCULAR VOLUME 88 FL (80-99); PLATELET COUNT 93 K/UL (150-450); RED BLOOD COUNT 2.78 M/UL (4.70-6.10); RED CELL DISTRIBUTION WIDTH 18.6 % (11.6-14.8); WHITE BLOOD COUNT 9.2 K/UL (4.8-10.8)
[2019-07-05 05:00] LABS: INR 1.6 (0.9-1.1)
[2019-07-05 05:33] LABS: ALANINE AMINOTRANSFERASE 22 U/L (12-78); ALBUMIN 1.3 G/DL (3.4-5.0); ALBUMIN/GLOBULIN RATIO 0.2 (1.0-2.7); ALKALINE PHOSPHATASE 161 U/L (46-116); ANION GAP 10 mmol/L (5-15); ASPARTATE AMINO TRANSFERASE 80 U/L (15-37); BILIRUBIN,TOTAL 3.1 MG/DL (0.2-1.0); BLOOD UREA NITROGEN 5 mg/dL (7-18); CALCIUM 7.7 MG/DL (8.5-10.1); CARBON DIOXIDE 20 MMOL/L (21-32); CHLORIDE 105 MMOL/L (98-107); CREATININE 0.6 MG/DL (0.55-1.30); PHOSPHORUS 3.1 MG/DL (2.5-4.9); POTASSIUM 3.5 MMOL/L (3.5-5.1); SODIUM 135 MMOL/L (136-145)
[2019-07-05 05:58] LABS: BILIRUBIN,DIRECT 2.1 MG/DL (0.0-0.3)
--- NOTE | 2019-07-05 07:30 | NUR ---
HAND-OFF: Report given to JOSEFINA Mckay.
[2019-07-05 08:00] VITALS: BP 144/83
--- NOTE | 2019-07-05 08:00 | Progress Note ---
DATE: 07/05/2019 SUBJECTIVE: The patient has anxiety, withdrawal from alcohol. Unable to provide any history due to being confused. He is currently withdrawing and is tachycardic. MENTAL STATUS EXAMINATION: The patient is alert, confused, and disoriented. Mood is anxious. Affect is flat. Thought process, there is a paucity of thought content. No suicidal or homicidal ideation. Cognition is impaired. ASSESSMENT: 1. Alcohol dependence. 2. Alcohol withdrawal. PLAN: 1. The patient was placed on Ativan p.r.n. 2. Folate. 3. Thiamine. 4. We will continue to follow and readjust the medications. Samina Cruz M.D. DR: LO JOB#: [id number] CC:
[2019-07-05] MEDS: Pantoprazole Inj IVP SCH ×2 (08:35→20:34)
[2019-07-05] MEDS: Thiamine 100mg tab ORAL SCH (08:36)
[2019-07-05] MEDS: D5NS 1,000 ML IV SCH (08:37)
--- NOTE | 2019-07-05 11:10 | NUR ---
CASE MANAGEMENT: REVIEW 07/05/2019 SI:ETHANOL INTOXICATION. ANEMIA. ABD DISTENTION. T 97.2 HR 120 RR 19 B/P 144/83 SATS 96% ON RA HGB 7.6 HCT 24.6 NA 135 BUN 5 GLU 71 CA 7.7 AST 80 ALP 161 IS: IVF @ 50 mL/HR PROTONIX IV Q12H FOLATE PO QD THIAMINE PO QD ABD US Impression: Hepatic surface nodularity, suggestive of cirrhosis. Ascites. Negative for gallstones or dilated bile ducts. Note inability to visualize the pancreas and portions of the abdominal aorta. ABD XRAY Impression: Evidence of massive ascites SDU DCP: PATIENT TO BE DISCHARGED TO APPROPRIATE LOCATION ONCE MEDICALLY CLEARED. PLAN OF CARE: VENOUS DUPLEX (-) US PARACENTESIS
[2019-07-05] MEDS ORDERED: Calcium Gluconate 1gm/10ml vial IVP ONE (11:15)
--- NOTE | 2019-07-05 11:17 | General Progress Note ---
Assessment/Plan Assessment/Plan: 48-year-old male with past medical history of EtOH abuse presented found down. #Liver cirrhosis secondary to EtOH - DF 31 -MELD 15 -Abdominal ultrasound reviewed -Supportive care - start lactulose prophylactic - vit k and plt tx prior to paracentesis and active bleeding -Paracentesis today 07/05 diagnostic and therapeutic #Anemia, likely might multifactorial including acute blood loss anemia, anemia of chronic disease -Hematology consult, appreciate recs -Iron panel -Low folate: Replace -B12 within normal limits above 800 -GI consult, appreciate recs -no procedure, ok for diet #Substance abuse -Check UDS -Check hepatitis and HIV: hiv neg, hep pending -Social work Consult - Psyche consult, appreciate recs #Hypokalemia Replace, continue to monitor # Hypocalcemia - replace #Advanced care planning discussion with patient. Time spent: 17 minutes. Patient would like to be full code The time of my note may not reflect the time of my patient encounter. Subjective Date patient seen: Jul 05, 2019 Allergies: Coded Allergies: No Known Allergies (Unverified , 07/03/19) All Systems: reviewed and negative except above Subjective Patient admits to bleeding gums. Admits to abdominal pain right lower quadrant and abdominal distention. Denies fevers chills Objective Last 24 Hour Vital Signs Date Time Temp Pulse Resp B/P (MAP) Pulse Ox O2 Delivery O2 Flow Rate FiO2 07/05/19 08:00 120 07/05/19 08:00 Room Air 07/05/19 08:00 97.2 120 19 144/83 (103) 96 07/05/19 04:00 Room Air 07/05/19 04:00 98.0 108 19 150/95 (113) 97 07/05/19 03:32 115 07/05/19 00:00 101 07/05/19 00:00 Room Air 07/05/19 00:00 97.9 101 19 134/83 (100) 97 07/04/19 20:00 98.1 107 19 153/93 (113) 96 07/04/19 20:00 106 07/04/19 20:00 Room Air 07/04/19 16:00 107 07/04/19 16:00 Room Air 07/04/19 15:57 97.7 100 19 138/92 (107) 07/04/19 12:00 96.8 99 19 139/83 (101) 07/04/19 12:00 Room Air 07/04/19 12:00 96 Intake and Output 07/04/19 07/05/19 18:59 06:59 Intake Total 50 ml 1100 ml Output Total 809 ml 800 ml Balance -759 ml 300 ml IV Total 50 ml 1100 ml Output Urine Total 560 ml 800 ml Other 249 ml # Voids 4 4 Laboratory Tests 07/04/19 13:36: Urine Color Brown, Urine Appearance Clear, Urine pH 6, Urine Specific [place] 1.015, Urine Protein 1+H, Urine Glucose (UA) Negative, Urine Ketones 2+H, Urine Blood 2+H, Urine Nitrite Negative, Urine Bilirubin 2+H, Urine Ictotest Positive , Urine Urobilinogen 8H, Urine Leukocyte Esterase 1+H, Urine RBC 5-10H, Urine WBC 0-2, Urine Squamous Epithelial Cells None, Urine Bacteria Occasional, Urine Mucus ManyH, Urine Opiates Screen Negative, Urine Barbiturates Screen Negative, Phencyclidine (PCP) Screen Negative, Urine Amphetamines Screen Negative, Urine Benzodiazepines Screen Negative, Urine Cocaine Screen Negative, Urine Marijuana (THC) Screen Negative 07/04/19 16:00: Troponin I 0.015 07/05/19 02:50: White Blood Count 9.2, Red Blood Count 2.78L, Hemoglobin 7.6L, Hematocrit 24.6L , Mean Corpuscular Volume 88, Mean Corpuscular Hemoglobin 27.5, Mean Corpuscular Hemoglobin Concent 31.1L, Red Cell Distribution Width 18.6H, Platelet Count 93L, Mean Platelet Volume 9.5, Neutrophils (%) (Auto) , Lymphocytes (%) (Auto) , Monocytes (%) (Auto) , Eosinophils (%) (Auto) , Basophils (%) (Auto) , Prothrombin Time 16.7H, Prothromb Time International Ratio 1.6H, Activated Partial Thromboplast Time 39H, Sodium Level 135L, Potassium Level 3.5, Chloride Level 105, Carbon Dioxide Level 20L, Anion Gap 10 , Blood Urea Nitrogen 5L, Creatinine 0.6, Estimat Glomerular Filtration Rate > 60, Glucose Level 71L, Calcium Level 7.7L, Ionized Calcium (Measured) 1.02L, Phosphorus Level 3.1, Magnesium Level 1.8, Total Bilirubin 3.1H, Direct Bilirubin 2.1H, Aspartate Amino Transf (AST/SGOT) 80H, Alanine Aminotransferase (ALT/SGPT) 22, Alkaline Phosphatase 161H, Total Protein 8.4H, Albumin 1.3L, Globulin 7.1, Albumin/Globulin Ratio 0.2L, Lipase 213 Height (Feet): 5 Height (Inches): 8.00 Weight (Pounds): 180 Objective GENERAL: No acute distress, HEENT: NCAT, icteric eyes, pupils PERRLA Neck: No cervical lymphadenopathy, trachea midline CV: Tachycardic, no murmurs rubs or gallops RESP: Clear to auscultation bilaterally, no wheezes/rhonchi/crackles ABD: Distended with positive ascites and umbilical hernia EXT: Normal muscle tone, +5/5 muscle strength, no edema NEURO: No obvious deficits, alert and oriented x3 Tori Etienne DO Jul 05, 2019 11:17
[2019-07-05 12:00] VITALS: BP 152/84
--- NOTE | 2019-07-05 12:44 | General Progress Note ---
Assessment/Plan Problem List: (1) Anemia ICD Codes: D64.9 - Anemia, unspecified SNOMED: 365748268 Qualifiers: Qualified Codes: D64.9 - Anemia, unspecified (2) Acute alcoholic intoxication ICD Codes: F10.929 - Alcohol use, unspecified with intoxication, unspecified SNOMED: 11372428, 9881294 Qualifiers: Qualified Codes: F10.929 - Alcohol use, unspecified with intoxication, unspecified (3) Cirrhosis ICD Codes: K74.60 - Unspecified cirrhosis of liver SNOMED: 21121916 (4) Ascites ICD Codes: R18.8 - Other ascites SNOMED: 243071792 Assessment/Plan: vit k given fu stool ob no obvious GIB per nurses banana bag fu labs paracentesis pending protonix ammonia level possible EGD on Monday Subjective ROS Limited/Unobtainable: No Allergies: Coded Allergies: No Known Allergies (Unverified , 07/03/19) Objective Last 24 Hour Vital Signs Date Time Temp Pulse Resp B/P (MAP) Pulse Ox O2 Delivery O2 Flow Rate FiO2 07/05/19 12:00 Room Air 07/05/19 08:00 120 07/05/19 08:00 Room Air 07/05/19 08:00 97.2 120 19 144/83 (103) 96 07/05/19 04:00 Room Air 07/05/19 04:00 98.0 108 19 150/95 (113) 97 07/05/19 03:32 115 07/05/19 00:00 101 07/05/19 00:00 Room Air 07/05/19 00:00 97.9 101 19 134/83 (100) 97 07/04/19 20:00 98.1 107 19 153/93 (113) 96 07/04/19 20:00 106 07/04/19 20:00 Room Air 07/04/19 16:00 107 07/04/19 16:00 Room Air 07/04/19 15:57 97.7 100 19 138/92 (107) Intake and Output 07/04/19 07/05/19 18:59 06:59 Intake Total 50 ml 1100 ml Output Total 809 ml 800 ml Balance -759 ml 300 ml IV Total 50 ml 1100 ml Output Urine Total 560 ml 800 ml Other 249 ml # Voids 4 4 Laboratory Tests 07/04/19 13:36: Urine Color Brown, Urine Appearance Clear, Urine pH 6, Urine Specific [place] 1.015, Urine Protein 1+H, Urine Glucose (UA) Negative, Urine Ketones 2+H, Urine Blood 2+H, Urine Nitrite Negative, Urine Bilirubin 2+H, Urine Ictotest Positive , Urine Urobilinogen 8H, Urine Leukocyte Esterase 1+H, Urine RBC 5-10H, Urine WBC 0-2, Urine Squamous Epithelial Cells None, Urine Bacteria Occasional, Urine Mucus ManyH, Urine Opiates Screen Negative, Urine Barbiturates Screen Negative, Phencyclidine (PCP) Screen Negative, Urine Amphetamines Screen Negative, Urine Benzodiazepines Screen Negative, Urine Cocaine Screen Negative, Urine Marijuana (THC) Screen Negative 07/04/19 16:00: Troponin I 0.015 07/05/19 02:50: White Blood Count 9.2, Red Blood Count 2.78L, Hemoglobin 7.6L, Hematocrit 24.6L , Mean Corpuscular Volume 88, Mean Corpuscular Hemoglobin 27.5, Mean Corpuscular Hemoglobin Concent 31.1L, Red Cell Distribution Width 18.6H, Platelet Count 93L, Mean Platelet Volume 9.5, Neutrophils (%) (Auto) , Lymphocytes (%) (Auto) , Monocytes (%) (Auto) , Eosinophils (%) (Auto) , Basophils (%) (Auto) , Prothrombin Time 16.7H, Prothromb Time International Ratio 1.6H, Activated Partial Thromboplast Time 39H, Sodium Level 135L, Potassium Level 3.5, Chloride Level 105, Carbon Dioxide Level 20L, Anion Gap 10 , Blood Urea Nitrogen 5L, Creatinine 0.6, Estimat Glomerular Filtration Rate > 60, Glucose Level 71L, Calcium Level 7.7L, Ionized Calcium (Measured) 1.02L, Phosphorus Level 3.1, Magnesium Level 1.8, Total Bilirubin 3.1H, Direct Bilirubin 2.1H, Aspartate Amino Transf (AST/SGOT) 80H, Alanine Aminotransferase (ALT/SGPT) 22, Alkaline Phosphatase 161H, Total Protein 8.4H, Albumin 1.3L, Globulin 7.1, Albumin/Globulin Ratio 0.2L, Lipase 213 Height (Feet): 5 Height (Inches): 8.00 Weight (Pounds): 180 General Appearance: no apparent distress EENT: normal ENT inspection Neck: supple Cardiovascular: normal peripheral pulses Respiratory/Chest: decreased breath sounds Abdomen: soft, hypoactive bowel sounds, distended Extremities: non-tender Robert Guzman MD Jul 05, 2019 12:44
--- NOTE | 2019-07-05 12:55 | Surgery Progress Note ---
Surgery Progress Note Subjective Additional Comments tachycardic anemia responded to transfusion plt noted plan for paracentesis today Objective Last 24 Hour Vital Signs Date Time Temp Pulse Resp B/P (MAP) Pulse Ox O2 Delivery O2 Flow Rate FiO2 07/05/19 12:00 Room Air 07/05/19 08:00 120 07/05/19 08:00 Room Air 07/05/19 08:00 97.2 120 19 144/83 (103) 96 07/05/19 04:00 Room Air 07/05/19 04:00 98.0 108 19 150/95 (113) 97 07/05/19 03:32 115 07/05/19 00:00 101 07/05/19 00:00 Room Air 07/05/19 00:00 97.9 101 19 134/83 (100) 97 07/04/19 20:00 98.1 107 19 153/93 (113) 96 07/04/19 20:00 106 07/04/19 20:00 Room Air 07/04/19 16:00 107 07/04/19 16:00 Room Air 07/04/19 15:57 97.7 100 19 138/92 (107) I&O Intake and Output 07/04/19 07/05/19 18:59 06:59 Intake Total 50 ml 1100 ml Output Total 809 ml 800 ml Balance -759 ml 300 ml IV Total 50 ml 1100 ml Output Urine Total 560 ml 800 ml Other 249 ml # Voids 4 4 Dressing: dry Wound: clean Cardiovascular: RSR Respiratory: clear Abdomen: soft, distended, non-tender, decreased bowel sounds Extremities: no cyanosis Laboratory Tests Test 07/04/19 13:36 07/04/19 16:00 07/05/19 02:50 Urine Color Brown Urine Appearance Clear Urine pH 6 (4.5-8.0) Urine Specific [place] 1.015 (1.005-1.035) Urine Protein 1+ (NEGATIVE) H Urine Glucose (UA) Negative (NEGATIVE) Urine Ketones 2+ (NEGATIVE) H Urine Blood 2+ (NEGATIVE) H Urine Nitrite Negative (NEGATIVE) Urine Bilirubin 2+ (NEGATIVE) H Urine Ictotest Positive (NEGATIVE) Urine Urobilinogen 8 MG/DL (0.0-1.0) H Urine Leukocyte Esterase 1+ (NEGATIVE) H Urine RBC 5-10 /HPF (0 - 0) H Urine WBC 0-2 /HPF (0 - 0) Urine Squamous Epithelial Cells None /LPF (NONE/OCC) Urine Bacteria Occasional /HPF (NONE) Urine Mucus Many /LPF (NONE/OCC) H Urine Opiates Screen Negative (NEGATIVE) Urine Barbiturates Screen Negative (NEGATIVE) Phencyclidine (PCP) Screen Negative (NEGATIVE) Urine Amphetamines Screen Negative (NEGATIVE) Urine Benzodiazepines Screen Negative (NEGATIVE) Urine Cocaine Screen Negative (NEGATIVE) Urine Marijuana (THC) Screen Negative (NEGATIVE) Troponin I 0.015 ng/mL (0.000-0.056) White Blood Count 9.2 K/UL (4.8-10.8) Red Blood Count 2.78 M/UL (4.70-6.10) L Hemoglobin 7.6 G/DL (14.2-18.0) L Hematocrit 24.6 % (42.0-52.0) L Mean Corpuscular Volume 88 FL (80-99) Mean Corpuscular Hemoglobin 27.5 PG (27.0-31.0) Mean Corpuscular Hemoglobin Concent 31.1 G/DL (32.0-36.0) L Red Cell Distribution Width 18.6 % (11.6-14.8) H Platelet Count 93 K/UL (150-450) L Mean Platelet Volume 9.5 FL (6.5-10.1) Neutrophils (%) (Auto) % (45.0-75.0) Lymphocytes (%) (Auto) % (20.0-45.0) Monocytes (%) (Auto) % (1.0-10.0) Eosinophils (%) (Auto) % (0.0-3.0) Basophils (%) (Auto) % (0.0-2.0) Prothrombin Time 16.7 SEC (9.30-11.50) H Prothromb Time International Ratio 1.6 (0.9-1.1) H Activated Partial Thromboplast Time 39 SEC (23-33) H Sodium Level 135 MMOL/L (136-145) L Potassium Level 3.5 MMOL/L (3.5-5.1) Chloride Level 105 MMOL/L (98-107) Carbon Dioxide Level 20 MMOL/L (21-32) L Anion Gap 10 mmol/L (5-15) Blood Urea Nitrogen 5 mg/dL (7-18) L Creatinine 0.6 MG/DL (0.55-1.30) Estimat Glomerular Filtration Rate > 60 mL/min (>60) Glucose Level 71 MG/DL (74-106) L Calcium Level 7.7 MG/DL (8.5-10.1) L Ionized Calcium (Measured) 1.02 mmol/L (1.10-1.35) L Phosphorus Level 3.1 MG/DL (2.5-4.9) Magnesium Level 1.8 MG/DL (1.8-2.4) Total Bilirubin 3.1 MG/DL (0.2-1.0) H Direct Bilirubin 2.1 MG/DL (0.0-0.3) H Aspartate Amino Transf (AST/SGOT) 80 U/L (15-37) H Alanine Aminotransferase (ALT/SGPT) 22 U/L (12-78) Alkaline Phosphatase 161 U/L (46-116) H Total Protein 8.4 G/DL (6.4-8.2) H Albumin 1.3 G/DL (3.4-5.0) L Globulin 7.1 g/dL Albumin/Globulin Ratio 0.2 (1.0-2.7) L Lipase 213 U/L (73-393) Plan Problems: (1) Abdominal distension Assessment & Plan: Abdominal distention from ascites as he has significant liver dysfunction may need paracentesis but hold until further work up para today Findings: There is ascites fluid present. Gallbladder is unremarkable, without stones, wall thickening, nor pericholecystic fluid. Sonographic [place]'s sign is negative. Common bile duct measures 3 mm in diameter. No intrahepatic biliary ductal dilatation. Liver demonstrates slightly increased echogenicity. No focal abnormality. It demonstrates surface nodularity. Portal vein and hepatic veins are patent. Pancreas is obscured by bowel gas. Spleen is unremarkable. Left kidney measures 11.4 cm in length. Right kidney measures 11.1 cm length. Both kidneys demonstrate normal echogenicity. There is no hydronephrosis. No focal abnormality . Abdominal aorta is partially obscured by bowel gas, visualized portions are non-aneurysmal . Impression: Hepatic surface nodularity, suggestive of cirrhosis. Ascites Negative for gallstones or dilated bile ducts (2) Facial trauma Assessment & Plan: Findings: No acute intracranial hemorrhage or edema. No mass effect or midline shift. Normal hardy-white differentiation. Slightly prominent for age ventricles and extra axial CSF spaces. Mild periventricular deep white matter low-attenuation consistent with chronic microvascular ischemic changes noted Questionable minimal left supraorbital scalp contusion. Intact calvarium. Visualized orbits and sinuses are unremarkable. The mastoids are clear. unknown if fall or assault lip with dry blood and in medial aspect small oozing - resolved apply dressing prn thank you Alvin James Jul 05, 2019 12:55
[2019-07-05] MEDS ORDERED: Phytonadione 5 MG in D5W 55 ML IVPB SCH (13:00)
[2019-07-05] MEDS: Lactulose 20gm/30ml UDC ORAL SCH ×2 (14:28→17:55)
[2019-07-05] MEDS: chlordiazePOXIDE 25mg Cap ORAL SCH ×2 (14:33→17:55)
--- NOTE | 2019-07-05 15:08 | Pre-Procedure Note/Attestation ---
Pre-Procedure Note/Attestation Complete Prior to Procedure Planned Procedure: not applicable Procedure Narrative: Paracentesis Indications for Procedure Pre-Operative Diagnosis: ascites Attestation I attest that I discussed the nature of the procedure; its benefits; risks and complications; and alternatives (and the risks and benefits of such alternatives ), prior to the procedure, with the patient (or the patient's legal computer help desk representative). I attest that, if there was a reasonable possibility of needing a blood transfusion, the patient (or the patient's legal computer help desk representative) was given the [facility] standardized written summary, pursuant to the Denzel Huma Blood Safety Act ([place] Health and Safety Code # 1645, as amended). I attest that I re-evaluated the patient just prior to the surgery and that there has been no change in the patient's H&P, except as documented below: Yassine Nelson MD Jul 05, 2019 15:08
--- NOTE | 2019-07-05 15:09 | Brief Operative Note ---
Immediate Post Operative Note Operative Note Pre-op Diagnosis: ascites Procedure: paracentesis Post-op Diagnosis: same as pre-op Surgeon: Mayur Goodwin Anesthesia: local Specimen: yes - 50 ml fluid sent to lab Complications: none Fluids: none Implant(s) used?: No Yassine Goodwin MD Jul 05, 2019 15:09
--- NOTE | 2019-07-05 15:45 | Hematology/Onc Progress Note ---
Assessment/Plan Assessment/Plan ASSESSMENT AND RECS # Anemia of iron deficiency in addition to suppresion from etoh abuse and cirrhosis of liver --> Anemia workup has been ordered, rule out gi bleed --> aid noted --> No evidence of hemolysis is noted, peripheral smear has been reviewed. --> Hgb goal >7. Transfuse prn. --> Hgb trend: 4.2-->7.1-->7.6 --> IRON IV 200mg stat ordered x 1dose --> Medications have been reviewed --> low threshold for gi evaluation in case has occult + --> bone marrow biopsy is not indicated given the other more likely causes # Thrombocytopenia - secondary to liver cirrhosis --> Hep panel and HIV ordered - both negative --> US abd to evaluate for cirrhosis and hsm ordered - Hepatic surface nodularity, suggestive of cirrhosis. Ascites --> Peripheral smear ordered to evaluate for blasts /schistocytes --> abx and other meds have been reviewed --> ok for ppx if plt >50k w/ either heparin or lovenox --> Transfuse if Plt < 20k and fever, or if Plt < 10k without fever # Liver cirrhosis secondary to Etoh --> GI is following, appreciate rcs --> Abdominal ultrasound reviewed --> Supportive care --> lactulose prophylactic # Substance abuse --> psych eval # Hypokalemia --> Replace, continue to monitor # Hypocalcemia The timing of this note does not necessarily reflect the time of the patient was seen. GREATLY APPRECIATE CONSULTATION. Subjective Allergies: Coded Allergies: No Known Allergies (Unverified , 07/03/19) Subjective 07/05: no fevers, chills or night sweats noted, on iv iron has been started, on benzo Objective Objective Current Medications Medications (Trade) Dose Ordered Sig/Atnja Route PRN Reason Start Time Stop Time Status Last Admin Dose Admin Calcium Gluconate 1 gm/Sodium Chloride 120 ml @ 240 mls/hr ONCE IVPB 07/05/19 16:00 07/05/19 16:01 Chlordiazepoxide (Librium) 25 mg TID ORAL 07/05/19 13:30 07/12/19 13:29 07/05/19 14:33 Folic Acid (Folate) 1 mg DAILY ORAL 07/04/19 10:30 08/03/19 10:29 07/05/19 08:36 Lactulose (Cephulac) 20 gm THREE TIMES A DAY ORAL 07/05/19 13:00 08/04/19 12:59 07/05/19 14:28 Lorazepam (Ativan) 2 mg Q6H PRN ORAL For Anxiety 07/05/19 00:15 07/12/19 00:14 07/05/19 08:36 Pantoprazole (Protonix) 40 mg EVERY 12 HOURS IVP 07/04/19 09:00 08/03/19 08:59 07/05/19 08:35 Thiamine HCl (Vitamin B1) 100 mg DAILY ORAL 07/04/19 10:30 08/03/19 10:29 07/05/19 08:36 Last 24 Hour Vital Signs Date Time Temp Pulse Resp B/P (MAP) Pulse Ox O2 Delivery O2 Flow Rate FiO2 07/05/19 12:00 Room Air 07/05/19 12:00 129 07/05/19 08:00 120 07/05/19 08:00 Room Air 07/05/19 08:00 97.2 120 19 144/83 (103) 96 07/05/19 04:00 Room Air 07/05/19 04:00 98.0 108 19 150/95 (113) 97 07/05/19 03:32 115 07/05/19 00:00 101 07/05/19 00:00 Room Air 07/05/19 00:00 97.9 101 19 134/83 (100) 97 07/04/19 20:00 98.1 107 19 153/93 (113) 96 07/04/19 20:00 106 07/04/19 20:00 Room Air 07/04/19 16:00 107 07/04/19 16:00 Room Air 07/04/19 15:57 97.7 100 19 138/92 (107) 07/04/19 12:00 96.8 99 19 139/83 (101) 07/04/19 12:00 Room Air 07/04/19 12:00 96 07/04/19 08:00 Room Air 07/04/19 08:00 98.0 102 19 116/76 (89) 07/04/19 07:37 96 07/04/19 04:00 99 07/04/19 04:00 98.4 100 19 121/81 (94) 07/04/19 04:00 Room Air 07/04/19 00:00 98.0 91 19 122/73 (89) 07/04/19 00:00 99 07/04/19 00:00 Room Air 07/03/19 22:17 103 07/03/19 22:15 98.1 105 19 124/76 (92) 07/03/19 22:15 Room Air 07/03/19 21:55 98.2 111 26 122/73 96 Room Air 07/03/19 21:30 98.2 111 26 122/73 96 Room Air 07/03/19 20:35 98.2 118 30 114/76 95 Room Air 07/03/19 19:45 98.4 111 26 116/91 97 Room Air 07/03/19 17:45 112 30 Room Air 07/03/19 17:45 98.4 109 36 136/84 99 Room Air 07/03/19 17:35 98.4 96 18 136/84 (101) 99 Room Air Intake and Output 07/04/19 07/05/19 19:00 07:00 Intake Total 50 ml 1100 ml Output Total 809 ml 800 ml Balance -759 ml 300 ml IV Total 50 ml 1100 ml Output Urine Total 560 ml 800 ml Other 249 ml # Voids 4 4 Labs Test 07/03/19 18:07 07/03/19 18:55 07/04/19 03:32 07/04/19 13:36 Sodium Level 132 MMOL/L (136-145) 134 MMOL/L (136-145) Potassium Level 3.5 MMOL/L (3.5-5.1) 3.3 MMOL/L (3.5-5.1) Chloride Level 99 MMOL/L (98-107) 103 MMOL/L (98-107) Carbon Dioxide Level 23 MMOL/L (21-32) 23 MMOL/L (21-32) Anion Gap 10 mmol/L (5-15) 8 mmol/L (5-15) Blood Urea Nitrogen 3 mg/dL (7-18) 2 mg/dL (7-18) Creatinine 0.8 MG/DL (0.55-1.30) 0.7 MG/DL (0.55-1.30) Estimat Glomerular Filtration Rate > 60 mL/min (>60) > 60 mL/min (>60) Glucose Level 95 MG/DL (74-106) 79 MG/DL (74-106) Calcium Level 7.4 MG/DL (8.5-10.1) 7.4 MG/DL (8.5-10.1) Total Bilirubin 1.7 MG/DL (0.2-1.0) 2.7 MG/DL (0.2-1.0) Direct Bilirubin 1.1 MG/DL (0.0-0.3) 1.4 MG/DL (0.0-0.3) Aspartate Amino Transf (AST/SGOT) 83 U/L (15-37) 89 U/L (15-37) Alanine Aminotransferase (ALT/SGPT) 22 U/L (12-78) 23 U/L (12-78) Alkaline Phosphatase 172 U/L (46-116) 168 U/L (46-116) Total Protein 8.4 G/DL (6.4-8.2) 8.6 G/DL (6.4-8.2) Albumin 1.2 G/DL (3.4-5.0) 1.3 G/DL (3.4-5.0) Globulin 7.2 g/dL 7.3 g/dL Albumin/Globulin Ratio 0.2 (1.0-2.7) 0.2 (1.0-2.7) Salicylates Level < 3.0 ug/mL (2.8-20) Acetaminophen Level < 2 MCG/ML (10-30) Serum Alcohol 267 mg/dL White Blood Count 8.3 K/UL (4.8-10.8) 8.5 K/UL (4.8-10.8) Red Blood Count 1.71 M/UL (4.70-6.10) 2.73 M/UL (4.70-6.10) Hemoglobin 4.2 G/DL (14.2-18.0) 7.1 G/DL (14.2-18.0) Hematocrit 14.3 % (42.0-52.0) 23.8 % (42.0-52.0) Mean Corpuscular Volume 83 FL (80-99) 87 FL (80-99) Mean Corpuscular Hemoglobin 24.6 PG (27.0-31.0) 26.1 PG (27.0-31.0) Mean Corpuscular Hemoglobin Concent 29.5 G/DL (32.0-36.0) 29.9 G/DL (32.0-36.0) Red Cell Distribution Width 19.5 % (11.6-14.8) 18.9 % (11.6-14.8) Platelet Count 93 K/UL (150-450) 97 K/UL (150-450) Mean Platelet Volume 6.7 FL (6.5-10.1) 8.1 FL (6.5-10.1) Neutrophils (%) (Auto) % (45.0-75.0) % (45.0-75.0) Lymphocytes (%) (Auto) % (20.0-45.0) % (20.0-45.0) Monocytes (%) (Auto) % (1.0-10.0) % (1.0-10.0) Eosinophils (%) (Auto) % (0.0-3.0) % (0.0-3.0) Basophils (%) (Auto) % (0.0-2.0) % (0.0-2.0) Differential Total Cells Counted 100 100 Neutrophils % (Manual) 85 % (45-75) 84 % (45-75) Lymphocytes % (Manual) 8 % (20-45) 6 % (20-45) Monocytes % (Manual) 4 % (1-10) 5 % (1-10) Eosinophils % (Manual) 0 % (0-3) 0 % (0-3) Basophils % (Manual) 0 % (0-2) 0 % (0-2) Metamyelocytes % 2 % (0-0) Band Neutrophils 1 % (0-8) 3 % (0-8) Nucleated Red Blood Cells 2 /100 WBC Platelet Estimate Decreased Decreased Platelet Morphology Normal Normal Polychromasia 2+ Hypochromasia 3+ 2+ Anisocytosis 3+ 2+ Target Cells 1+ Schistocytes 1+ Prothrombin Time 17.3 SEC (9.30-11.50) Prothromb Time International Ratio 1.7 (0.9-1.1) Activated Partial Thromboplast Time 39 SEC (23-33) Myelocytes % 2 % (0-0) Other Cell Type Pathologist review Iron Level 80 ug/dL (50-175) Total Iron Binding Capacity 106 ug/dL (250-450) Percent Iron Saturation 75 % (15-50) Unsaturated Iron Binding 26 ug/dL (112-346) Ferritin 46 NG/ML (8-388) Troponin I 0.024 ng/mL (0.000-0.056) Vitamin B12 Level 803 PG/ML (193-986) Folate 5.1 NG/ML (8.6-58.9) Thyroid Stimulating Hormone (TSH) 2.321 uiU/mL (0.358-3.740) Free Thyroxine 2.23 NG/DL (0.76-1.46) Hepatitis A IgM Antibody Negative (Negative) Hepatitis B Surface Antigen Negative (Negative) Hepatitis B Core IgM Antibody Negative (Negative) Hepatitis C Antibody 0.2 s/co ratio (0.0-0.9) HIV (1&2) Antibody Rapid Negative (NEGATIVE) Urine Color Brown Urine Appearance Clear Urine pH 6 (4.5-8.0) Urine Specific [place] 1.015 (1.005-1.035) Urine Protein 1+ (NEGATIVE) Urine Glucose (UA) Negative (NEGATIVE) Urine Ketones 2+ (NEGATIVE) Urine Blood 2+ (NEGATIVE) Urine Nitrite Negative (NEGATIVE) Urine Bilirubin 2+ (NEGATIVE) Urine Ictotest Positive (NEGATIVE) Urine Urobilinogen 8 MG/DL (0.0-1.0) Urine Leukocyte Esterase 1+ (NEGATIVE) Urine RBC 5-10 /HPF (0 - 0) Urine WBC 0-2 /HPF (0 - 0) Urine Squamous Epithelial Cells None /LPF (NONE/OCC) Urine Bacteria Occasional /HPF (NONE) Urine Mucus Many /LPF (NONE/OCC) Urine Opiates Screen Negative (NEGATIVE) Urine Barbiturates Screen Negative (NEGATIVE) Phencyclidine (PCP) Screen Negative (NEGATIVE) Urine Amphetamines Screen Negative (NEGATIVE) Urine Benzodiazepines Screen Negative (NEGATIVE) Urine Cocaine Screen Negative (NEGATIVE) Urine Marijuana (THC) Screen Negative (NEGATIVE) Test 07/04/19 16:00 07/05/19 02:50 07/05/19 15:00 Troponin I 0.015 ng/mL (0.000-0.056) White Blood Count 9.2 K/UL (4.8-10.8) Red Blood Count 2.78 M/UL (4.70-6.10) Hemoglobin 7.6 G/DL (14.2-18.0) Hematocrit 24.6 % (42.0-52.0) Mean Corpuscular Volume 88 FL (80-99) Mean Corpuscular Hemoglobin 27.5 PG (27.0-31.0) Mean Corpuscular Hemoglobin Concent 31.1 G/DL (32.0-36.0) Red Cell Distribution Width 18.6 % (11.6-14.8) Platelet Count 93 K/UL (150-450) Mean Platelet Volume 9.5 FL (6.5-10.1) Neutrophils (%) (Auto) % (45.0-75.0) Lymphocytes (%) (Auto) % (20.0-45.0) Monocytes (%) (Auto) % (1.0-10.0) Eosinophils (%) (Auto) % (0.0-3.0) Basophils (%) (Auto) % (0.0-2.0) Prothrombin Time 16.7 SEC (9.30-11.50) Prothromb Time International Ratio 1.6 (0.9-1.1) Activated Partial Thromboplast Time 39 SEC (23-33) Sodium Level 135 MMOL/L (136-145) Potassium Level 3.5 MMOL/L (3.5-5.1) Chloride Level 105 MMOL/L (98-107) Carbon Dioxide Level 20 MMOL/L (21-32) Anion Gap 10 mmol/L (5-15) Blood Urea Nitrogen 5 mg/dL (7-18) Creatinine 0.6 MG/DL (0.55-1.30) Estimat Glomerular Filtration Rate > 60 mL/min (>60) Glucose Level 71 MG/DL (74-106) Calcium Level 7.7 MG/DL (8.5-10.1) Ionized Calcium (Measured) 1.02 mmol/L (1.10-1.35) Phosphorus Level 3.1 MG/DL (2.5-4.9) Magnesium Level 1.8 MG/DL (1.8-2.4) Total Bilirubin 3.1 MG/DL (0.2-1.0) Direct Bilirubin 2.1 MG/DL (0.0-0.3) Aspartate Amino Transf (AST/SGOT) 80 U/L (15-37) Alanine Aminotransferase (ALT/SGPT) 22 U/L (12-78) Alkaline Phosphatase 161 U/L (46-116) Total Protein 8.4 G/DL (6.4-8.2) Albumin 1.3 G/DL (3.4-5.0) Globulin 7.1 g/dL Albumin/Globulin Ratio 0.2 (1.0-2.7) Lipase 213 U/L (73-393) Height (Feet): 5 Height (Inches): 8.00 Weight (Pounds): 180 Objective Physical Exam: Vitals: reviewed General Appearance: NAD HEENT: normocephalic, atraumatic Neck: non-tender, normal alignment Respiratory/Chest: normal breath sounds bilaterally Cardiovascular/Chest: normal peripheral pulses, normal rate Abdomen: normal bowel sounds, soft, nontender +++ ascites Avery Guo MD Jul 05, 2019 15:45
[2019-07-05 16:00] VITALS: BP 144/78
[2019-07-05] MEDS ORDERED: Calcium Gluconate 1gm in NS 110ml IVPB SCH (16:00)
--- NOTE | 2019-07-05 17:35 | Diagnostic Imaging Report ---
Indications: Ascites Technique: Ultrasound used to localize optimal puncture site. Sterile prepping and draping left lower quadrant. Local anesthesia with 1% lidocaine. Under real-time ultrasound guidance, puncture peritoneal space using paracentesis needle. Stylet removed. Catheter placed to vacuum bottle suction. Total 8.15 liters of clear yellow fluid aspirated. Patient tolerated procedure well, without immediate complication. Findings: Followup sonography demonstrates complete resolution of peritoneal fluid. Impression: Successful ultrasound-guided paracentesis, yielding 8.15 liters of fluid
--- NOTE | 2019-07-05 19:39 | NUR ---
HAND-OFF: Report given to MONTANA ROCHA.
--- NOTE | 2019-07-05 19:45 | Progress Note ---
DATE: 07/05/2019 SUBJECTIVE: The patient is agitated, attempted to fall out of bed, not engaged during the evaluation, with poor memory. MENTAL STATUS EXAMINATION: The patient is alert, confused, disoriented. Mood is agitated. Affect is flat. Thought process, there is a paucity of thought content. Thought content, no suicidal or homicidal ideation. Memory is impaired. Insight and judgment non-existent. ASSESSMENT: 1. Alcohol dependence. 2. Alcohol withdrawal. PLAN: 1. We will place the patient in self restraint. The charge nurse . Discussed the case with the oracle data warehouse developer and director of the unit. 2. The patient was placed on Librium 25 mg t.i.d. 3. Ativan p.r.n. 4. Folate. 5. Thiamine. 6. The patient lacks capacity to make decision. Samina Cruz M.D. DR: JAVIER JOB#: [id number] CC:
[2019-07-05 20:00] VITALS: BP 150/90
[2019-07-05] MEDS ORDERED: Iron Sucrose 200 MG in NS 110 ML IV ONE (20:00)
[2019-07-06] VITALS: BP 120/77
[2019-07-06 04:00] VITALS: BP 117/75
[2019-07-06 06:16] LABS: HEMATOCRIT 24.2 % (42.0-52.0); HEMOGLOBIN 7.4 G/DL (14.2-18.0); MEAN CORPUSCULAR VOLUME 88 FL (80-99); PLATELET COUNT 75 K/UL (150-450); RED BLOOD COUNT 2.75 M/UL (4.70-6.10); RED CELL DISTRIBUTION WIDTH 19.2 % (11.6-14.8)
[2019-07-06 06:19] LABS: INR 1.8 (0.9-1.1)
--- NOTE | 2019-07-06 07:25 | NUR ---
HAND-OFF: Report given to Benjamin ROCHA.
[2019-07-06 07:35] LABS: ALANINE AMINOTRANSFERASE 17 U/L (12-78); ALBUMIN 1.1 G/DL (3.4-5.0); ALKALINE PHOSPHATASE 129 U/L (46-116); ASPARTATE AMINO TRANSFERASE 74 U/L (15-37); BILIRUBIN,DIRECT 1.8 MG/DL (0.0-0.3); BILIRUBIN,TOTAL 2.7 MG/DL (0.2-1.0)
[2019-07-06 07:37] LABS: ALANINE AMINOTRANSFERASE 19 U/L (12-78); ALBUMIN/GLOBULIN RATIO 0.2 (1.0-2.7); ALKALINE PHOSPHATASE 129 U/L (46-116); ANION GAP 7 mmol/L (5-15); ASPARTATE AMINO TRANSFERASE 72 U/L (15-37); BILIRUBIN,TOTAL 2.6 MG/DL (0.2-1.0); BLOOD UREA NITROGEN 4 mg/dL (7-18); CALCIUM 7.7 MG/DL (8.5-10.1); CARBON DIOXIDE 24 MMOL/L (21-32); CHLORIDE 107 MMOL/L (98-107); CREATININE 0.8 MG/DL (0.55-1.30); PHOSPHORUS 3.5 MG/DL (2.5-4.9); SODIUM 138 MMOL/L (136-145)
[2019-07-06 07:41] LABS: BILIRUBIN,DIRECT 1.8 MG/DL (0.0-0.3)
[2019-07-06 08:00] VITALS: BP 138/100
[2019-07-06] MEDS: Lactulose 20gm/30ml UDC ORAL SCH ×3 (09:55→19:08)
[2019-07-06] MEDS: Thiamine 100mg tab ORAL SCH (09:55)
[2019-07-06] MEDS: chlordiazePOXIDE 25mg Cap ORAL SCH ×3 (09:55→18:00)
[2019-07-06] MEDS: Pantoprazole Inj IVP SCH ×2 (09:56→20:23)
[2019-07-06] MEDS ORDERED: Lice Treatment Shampoo 4oz Bottle TOPIC ONE (11:00)
[2019-07-06 12:00] VITALS: BP 142/80
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
--- NOTE | 2019-07-06 13:07 | General Progress Note ---
Assessment/Plan Assessment/Plan: 48-year-old male with past medical history of EtOH abuse presented found down. #Encephalopathy likely multifactorial including hepatic encephalopathy ( elevated ammonia), as well as sepsis (new fever of 100.4, tachycardia) -Treat underlying conditions, and continue medications as below #Sepsis secondary to possible SBP, decompensated liver cirrhosis, -Evaluate for other sources such as bacteremia, pneumonia, C. difficile ( although patient is on lactulose) -Start vancomycin and Zosyn (07/06) -Infectious disease consult, appreciate recs # Lice - primerin treatment #Liver cirrhosis secondary to EtOH - DF 31 -MELD 15 -Abdominal ultrasound reviewed -Status post paracentesis 07/05/2019 with removal of 8 L., Follow-up diagnostic results evaluate for SBP -Albumin for BP support as needed -Supportive care -Continue lactulose #Anemia, likely might multifactorial including acute blood loss anemia, anemia of chronic disease -Hematology consult, appreciate recs -Iron panel: Reviewed -Low folate: Replace -B12 within normal limits above 800 -GI consult, appreciate recs -no procedure, ok for diet #Substance abuse -Check UDS -Check hepatitis and HIV: hiv neg, hep pending -Social work Consult - Psyche consult, appreciate recs #Hypokalemia Replace, continue to monitor # Hypocalcemia - replace #full code The time of my note may not reflect the time of my patient encounter. Subjective Date patient seen: Jul 06, 2019 Allergies: Coded Allergies: No Known Allergies (Unverified , 07/03/19) Subjective Patient found to have head lice. Patient is more tachycardic and febrile at 100.4. Patient is more altered and does not answer appropriate. Unable to obtain ROS Objective Last 24 Hour Vital Signs Date Time Temp Pulse Resp B/P (MAP) Pulse Ox O2 Delivery O2 Flow Rate FiO2 07/06/19 12:00 100.4 138 28 142/80 (100) 100 07/06/19 12:00 143 07/06/19 12:00 Room Air 07/06/19 08:00 138 07/06/19 08:00 98.6 133 28 138/100 (113) 94 07/06/19 08:00 Room Air 07/06/19 04:00 Room Air 07/06/19 04:00 98.4 119 26 117/75 (89) 95 07/06/19 04:00 132 07/06/19 00:00 132 07/06/19 00:00 Room Air 07/06/19 00:00 98.6 120 25 120/77 (91) 96 07/05/19 20:00 148 07/05/19 20:00 98.8 149 26 150/90 (110) 96 07/05/19 20:00 Room Air 07/05/19 16:00 116 07/05/19 16:00 Room Air 07/05/19 16:00 97.0 118 20 144/78 (100) 96 Intake and Output 07/05/19 07/06/19 18:59 06:59 Output Total 8500 ml 8000 ml Balance -8500 ml -8000 ml Output Urine Total 500 ml Other 8000 ml 8000 ml # Voids 4 # Bowel Movements 5 Laboratory Tests 07/05/19 15:00: Body Fluid Total Protein 2.5 07/06/19 04:50: Sodium Level 138, Potassium Level 3.0L, Chloride Level 107, Carbon Dioxide Level 24, Anion Gap 7, Blood Urea Nitrogen 4L, Creatinine 0.8, Estimat Glomerular Filtration Rate > 60, Glucose Level 102, Calcium Level 7.7L, Ionized Calcium (Measured) 1.08L, Phosphorus Level 3.5, Magnesium Level 1.4L, Total Bilirubin 2.6H, Direct Bilirubin 1.8H, Aspartate Amino Transf (AST/SGOT) 72H, Alanine Aminotransferase (ALT/SGPT) 19, Alkaline Phosphatase 129H, Total Protein 7.5, Albumin 1.0L, Globulin 6.5, Albumin/Globulin Ratio 0.2L 07/06/19 05:40: Total Bilirubin 2.7H, Direct Bilirubin 1.8H, Aspartate Amino Transf (AST/SGOT) 74H, Alanine Aminotransferase (ALT/SGPT) 17, Alkaline Phosphatase 129H, Total Protein 7.6, Albumin 1.1L, White Blood Count 10.0, Red Blood Count 2.75L, Hemoglobin 7.4L, Hematocrit 24.2L, Mean Corpuscular Volume 88, Mean Corpuscular Hemoglobin 26.9L, Mean Corpuscular Hemoglobin Concent 30.6L, Red Cell Distribution Width 19.2H, Platelet Count 75L, Mean Platelet Volume 9.4, Neutrophils (%) (Auto) , Lymphocytes (%) (Auto) , Monocytes (%) (Auto) , Eosinophils (%) (Auto) , Basophils (%) (Auto) , Differential Total Cells Counted 100, Neutrophils % (Manual) 83H, Lymphocytes % (Manual) 2L, Monocytes % (Manual) 5, Eosinophils % (Manual) 0, Basophils % (Manual) 0, Band Neutrophils 10H, Nucleated Red Blood Cells 2, Platelet Estimate DecreasedL, Platelet Morphology Normal, Polychromasia 1+, Hypochromasia 2+, Anisocytosis 2+, Prothrombin Time 18.7H, Prothromb Time International Ratio 1.8H, Ammonia 85H Height (Feet): 5 Height (Inches): 8.00 Weight (Pounds): 180 Objective GENERAL: Patient unable to answer appropriately, shaking in bed HEENT: NCAT, icteric eyes, pupils PERRLA Neck: No cervical lymphadenopathy, trachea midline CV: Tachycardic, no murmurs rubs or gallops RESP: Clear to auscultation bilaterally, no wheezes/rhonchi/crackles ABD: Distended with positive ascites, improved after paracentesis, soft and umbilical hernia EXT: Normal muscle tone, +5/5 muscle strength, no edema NEURO: Encephalopathic, normal muscle tone, tremulous, does not follow commands Tori Etienne DO Jul 06, 2019 13:07
[2019-07-06] MEDS ORDERED: Vancomycin 1.5gm Premix IVPB ONE (14:00)
--- NOTE | 2019-07-06 14:11 | Diagnostic Imaging Report ---
EXAM: XR Chest, 1 View CLINICAL HISTORY: TACHYP TECHNIQUE: Frontal view of the chest. COMPARISON: No relevant prior studies available. FINDINGS: Lungs: Reduced lung volumes. Mild patchy infiltrate at the left lung base. Pleural space: Unremarkable. No pneumothorax. Heart: Large cardiomediastinal silhouette. Mediastinum: See above. Bones/joints: Old right clavicular fracture. IMPRESSION: Reduced lung volumes. Mild patchy infiltrate at the left lung base.
--- NOTE | 2019-07-06 14:41 | NUR ---
RADIOLOGY DEPT., CHEST X-RAY DONE.-P.DYE
[2019-07-06] MEDS: Vancomycin 1gm/D5W 275ml IVPB SCH ×2 (14:50)
[2019-07-06] MEDS ORDERED: NS 275ml ONE (15:54)
[2019-07-06] MEDS ORDERED: Tubing IV Secondary IV ONE (15:54)
[2019-07-06] MEDS ORDERED: D5NS 1000ml IV ONE (15:54)
[2019-07-06] MEDS ORDERED: Tubing IV Blood Pump IV ONE (15:54)
[2019-07-06 16:00] VITALS: BP 127/63
[2019-07-06] MEDS: Piperacillin/Tazobactam 3.375 GM in NS 110 ML IVPB SCH ×2 (16:10→23:24)
--- NOTE | 2019-07-06 19:10 | NUR ---
NURSE NOTES: Pt report received from ANKUSH ROCHA RONAK. pt remains relatively stable. vital signs are stable. pt is resting in bed and awake . pt is alert and oriented times 1 and remains uncomprehensable with response, however pt pupils are round and reactive to light and accommodating bilaterally., pt is easily arouse-able. pt sales engagement manager shows sinus tach with no other abnormalities noted. pt is on room air and able to sat at 100% with no resp distress noted. bed locked and low, armed bed rails up times 3, call light within reach, pt bed close to nursing station. will continue plan of care. Addendum: 07/06/19 at 2004 by YURI TRACEY RN NURSE NOTES: Pt report received from ANKUSH ROCHA RONAK. pt remains relatively stable. vital signs are stable. pt is resting in bed and awake . pt is alert and oriented times 1 and remains uncomprehensable with response, however pt pupils are round and reactive to light and accommodating bilaterally., pt is easily arouse-able. pt sales engagement manager shows sinus rhythm with no other abnormalities noted. pt is on room air and able to sat at 100% with no resp distress noted. bed locked and low, armed bed rails up times 3, call light within reach, pt bed close to nursing station. will continue plan of care.
[2019-07-06 20:00] VITALS: BP 131/77
--- NOTE | 2019-07-06 20:00 | NUR ---
NURSE NOTES: hair lice still detected on pt pillow.
--- NOTE | 2019-07-06 20:41 | NUR ---
NURSE NOTES: re inserted condom cath with aggie bag.
--- NOTE | 2019-07-06 21:34 | NUR ---
NURSE NOTES: pt removed previous condom cath. another one reinserted.
[2019-07-06] MEDS: LORazepam 0.5mg tab ORAL PRN (21:45)
--- NOTE | 2019-07-06 21:45 | NUR ---
NURSE NOTES: pt appears restless, anxious with elevated respirations and hear rate. Ativan 2MG oral PRN given.
--- NOTE | 2019-07-06 22:00 | NUR ---
NURSE NOTES: pt attempted to climb out of bed.
--- NOTE | 2019-07-06 22:10 | NUR ---
NURSE NOTES: called Lab. they stated they already collected blood culture.
--- NOTE | 2019-07-06 22:24 | NUR ---
NURSE NOTES: pt pulled out condom cath.
[2019-07-07] VITALS: BP 137/83
--- NOTE | 2019-07-07 01:15 | NUR ---
NURSE NOTES: pt attempted to climb out of bed.
--- NOTE | 2019-07-07 03:00 | NUR ---
NURSE NOTES: pt attempted to climb out of bed.
[2019-07-07 04:00] VITALS: BP 110/69
--- NOTE | 2019-07-07 04:30 | NUR ---
NURSE NOTES: pt attempted to climb out of bed.
[2019-07-07] MEDS: Vancomycin 1gm/D5W 275ml IVPB SCH ×2 (05:07)
[2019-07-07 05:38] LABS: HEMATOCRIT 24.3 % (42.0-52.0); HEMOGLOBIN 7.6 G/DL (14.2-18.0); MEAN CORPUSCULAR VOLUME 88 FL (80-99); PLATELET COUNT 80 K/UL (150-450); RED BLOOD COUNT 2.77 M/UL (4.70-6.10); RED CELL DISTRIBUTION WIDTH 19.4 % (11.6-14.8)
[2019-07-07 05:59] LABS: ANION GAP 5 mmol/L (5-15); BLOOD UREA NITROGEN 5 mg/dL (7-18); CALCIUM 7.7 MG/DL (8.5-10.1); CARBON DIOXIDE 26 MMOL/L (21-32); CHLORIDE 109 MMOL/L (98-107); CREATININE 0.9 MG/DL (0.55-1.30); POTASSIUM 2.9 MMOL/L (3.5-5.1); SODIUM 140 MMOL/L (136-145)
[2019-07-07 06:04] LABS: PHOSPHORUS 2.7 MG/DL (2.5-4.9)
--- NOTE | 2019-07-07 06:15 | NUR ---
NURSE NOTES: pt attempted to climb out of bed.
--- NOTE | 2019-07-07 07:04 | NUR ---
HAND-OFF: Report given to Asad ROCHA RONAK.
--- NOTE | 2019-07-07 07:20 | NUR ---
NURSE NOTES: Received bedside report from Rodrick ROCHA. Pt. in bed, sleeping but arousable. No grimacing noted. IV site at right FA #[id number]. in placed patent/intact. Bed in low position, locked. Call light within reach. Will cont. to monitor.
[2019-07-07 08:00] VITALS: BP 124/79
[2019-07-07] MEDS: Lactulose 20gm/30ml UDC ORAL SCH ×3 (08:30→18:00)
[2019-07-07] MEDS: Piperacillin/Tazobactam 3.375 GM in NS 110 ML IVPB SCH ×3 (08:30→23:09)
[2019-07-07] MEDS: chlordiazePOXIDE 25mg Cap ORAL SCH ×3 (08:30→18:00)
[2019-07-07] MEDS: Pantoprazole Inj IVP SCH ×2 (08:30→20:14)
[2019-07-07] MEDS: Thiamine 100mg tab ORAL SCH (08:31)
--- NOTE | 2019-07-07 09:06 | NUR ---
NURSE NOTES: Seen by Dr. Guo and informed regarding Hgb 7.6 today. No new order. Cont. to monitor.
[2019-07-07] MEDS ORDERED: Sodium Chloride for KCL Premix X 4hrs IV SCH (10:30)
[2019-07-07] MEDS ORDERED: Lice Treatment Shampoo 4oz Bottle TOPIC ONE (11:00)
--- NOTE | 2019-07-07 11:14 | Hematology/Onc Progress Note ---
Assessment/Plan Assessment/Plan ASSESSMENT AND RECS # Anemia of iron deficiency in addition to suppresion from etoh abuse and cirrhosis of liver --> Anemia workup has been ordered, rule out gi bleed --> aid noted --> No evidence of hemolysis is noted, peripheral smear has been reviewed. --> Hgb goal >7. Transfuse prn. --> Hgb trend: 4.2-->7.1-->7.6 --> IRON IV 200mg stat ordered x 1dose --> Medications have been reviewed --> low threshold for gi evaluation in case has occult + --> bone marrow biopsy is not indicated given the other more likely causes # Thrombocytopenia - secondary to liver cirrhosis --> Hep panel and HIV ordered - both negative --> US abd to evaluate for cirrhosis and hsm ordered - Hepatic surface nodularity, suggestive of cirrhosis. Ascites --> Peripheral smear ordered to evaluate for blasts /schistocytes and none significant noted --> abx and other meds have been reviewed --> ok for ppx if plt >50k w/ either heparin or lovenox --> Transfuse if Plt < 20k and fever, or if Plt < 10k without fever # Coagulopathy due to liver cirrhosis secondary to Etoh --> GI is following, appreciate rcs --> Abdominal ultrasound reviewed --> Supportive care --> lactulose prophylactic # Substance abuse --> psych eval # Hypokalemia --> Replace, continue to monitor # Hypocalcemia # Cirrhosis of the liver The timing of this note does not necessarily reflect the time of the patient was seen. GREATLY APPRECIATE CONSULTATION. Subjective Constitutional: Denies: no symptoms, chills, fever, malaise, weakness, other Cardiovascular: Denies: no symptoms, chest pain, edema, irregular heart rate, lightheadedness, palpitations, syncope, other Gastrointestinal/Abdominal: Denies: no symptoms, abdomen distended, abdominal pain, black stools, tarry stools, blood in stool, constipated, diarrhea, difficulty swallowing, nausea, poor appetite, poor fluid intake, rectal bleeding , vomiting, other Genitourinary: Denies: no symptoms, burning, discharge, frequency, flank pain, hematuria, incontinence, pain, urgency, other Neurologic/Psychiatric: Denies: no symptoms, anxiety, depressed, emotional problems, headache, numbness, paresthesia, pre-existing deficit, seizure, tingling, tremors, weakness, other Endocrine: Denies: no symptoms, excessive sweating, flushing, intolerance to cold, intolerance to heat, increased hunger, increased thirst, increased urine, unexplained weight gain, unexplained weight loss, other Allergies: Coded Allergies: No Known Allergies (Unverified , 07/03/19) Subjective 07/05: no fevers, chills or night sweats noted, on iv iron has been started, on benzo 07/07: extremely agitated overnight, climbin out of bed, on cristina taper, h/h low Objective Objective Current Medications Medications (Trade) Dose Ordered Sig/Tanja Route PRN Reason Start Time Stop Time Status Last Admin Dose Admin Chlordiazepoxide (Librium) 25 mg TID ORAL 07/05/19 13:30 07/12/19 13:29 07/06/19 13:39 Folic Acid (Folate) 1 mg DAILY ORAL 07/04/19 10:30 08/03/19 10:29 07/06/19 09:55 Lactulose (Cephulac) 20 gm THREE TIMES A DAY ORAL 07/05/19 13:00 08/04/19 12:59 07/06/19 19:08 Lorazepam (Ativan) 2 mg Q6H PRN ORAL For Anxiety 07/05/19 00:15 07/12/19 00:14 07/06/19 21:45 Magnesium Sulfate 100 ml @ 100 mls/hr Q1H IVPB 07/07/19 09:30 07/07/19 12:29 07/07/19 09:49 Pantoprazole (Protonix) 40 mg EVERY 12 HOURS IVP 07/04/19 09:00 08/03/19 08:59 07/07/19 08:30 Piperacillin Sod/ Tazobactam Sod 3.375 gm/Sodium Chloride 110 ml @ 27.5 mls/hr Q8HR@0000,0800,1600 IVPB 07/06/19 16:00 07/13/19 15:59 07/07/19 08:30 Potassium Chloride 100 ml @ 100 mls/hr Q1H IVPB 07/07/19 10:30 07/07/19 14:29 Sodium Chloride 400 ml @ 100 mls/hr Q4H IV 07/07/19 10:30 07/07/19 14:29 Thiamine HCl (Vitamin B1) 100 mg DAILY ORAL 07/04/19 10:30 08/03/19 10:29 07/06/19 09:55 Vancomycin HCl (Vanco rx to dose) 1 ea DAILY PRN MISC Per rx protocol 07/06/19 13:00 08/05/19 12:59 Vancomycin HCl 1 gm/Dextrose 275 ml @ 183.708 mls/hr Q8HR IVPB 07/06/19 22:00 07/11/19 21:59 07/07/19 05:07 Last 24 Hour Vital Signs Date Time Temp Pulse Resp B/P (MAP) Pulse Ox O2 Delivery O2 Flow Rate FiO2 07/07/19 08:00 97.7 107 22 124/79 (94) 97 07/07/19 08:00 Room Air 07/07/19 07:40 103 07/07/19 04:00 98.6 122 22 110/69 (83) 99 07/07/19 04:00 127 07/07/19 04:00 Room Air 07/07/19 00:00 125 07/07/19 00:00 98.4 98 22 137/83 (101) 97 07/07/19 00:00 Room Air 07/06/19 20:00 133 07/06/19 20:00 98.2 123 24 131/77 (95) 96 07/06/19 20:00 Room Air 07/06/19 16:00 Room Air 07/06/19 16:00 100.3 126 26 127/63 (84) 92 07/06/19 16:00 123 07/06/19 12:00 100.4 138 28 142/80 (100) 100 07/06/19 12:00 143 07/06/19 12:00 Room Air 07/06/19 08:00 138 07/06/19 08:00 98.6 133 28 138/100 (113) 94 07/06/19 08:00 Room Air 07/06/19 04:00 Room Air 07/06/19 04:00 98.4 119 26 117/75 (89) 95 07/06/19 04:00 132 07/06/19 00:00 132 07/06/19 00:00 Room Air 07/06/19 00:00 98.6 120 25 120/77 (91) 96 07/05/19 20:00 148 07/05/19 20:00 98.8 149 26 150/90 (110) 96 07/05/19 20:00 Room Air 07/05/19 16:00 116 07/05/19 16:00 Room Air 07/05/19 16:00 97.0 118 20 144/78 (100) 96 07/05/19 12:00 97.4 116 20 152/84 (106) 96 07/05/19 12:00 Room Air 07/05/19 12:00 129 Intake and Output 07/06/19 07/07/19 19:00 07:00 Intake Total 385.0 ml Balance 385.0 ml IV Total 385.0 ml # Voids 1 Labs Test 07/04/19 13:36 07/04/19 16:00 07/05/19 02:50 07/05/19 15:00 Urine Color Brown Urine Appearance Clear Urine pH 6 (4.5-8.0) Urine Specific [place] 1.015 (1.005-1.035) Urine Protein 1+ (NEGATIVE) Urine Glucose (UA) Negative (NEGATIVE) Urine Ketones 2+ (NEGATIVE) Urine Blood 2+ (NEGATIVE) Urine Nitrite Negative (NEGATIVE) Urine Bilirubin 2+ (NEGATIVE) Urine Ictotest Positive (NEGATIVE) Urine Urobilinogen 8 MG/DL (0.0-1.0) Urine Leukocyte Esterase 1+ (NEGATIVE) Urine RBC 5-10 /HPF (0 - 0) Urine WBC 0-2 /HPF (0 - 0) Urine Squamous Epithelial Cells None /LPF (NONE/OCC) Urine Bacteria Occasional /HPF (NONE) Urine Mucus Many /LPF (NONE/OCC) Urine Opiates Screen Negative (NEGATIVE) Urine Barbiturates Screen Negative (NEGATIVE) Phencyclidine (PCP) Screen Negative (NEGATIVE) Urine Amphetamines Screen Negative (NEGATIVE) Urine Benzodiazepines Screen Negative (NEGATIVE) Urine Cocaine Screen Negative (NEGATIVE) Urine Marijuana (THC) Screen Negative (NEGATIVE) Troponin I 0.015 ng/mL (0.000-0.056) White Blood Count 9.2 K/UL (4.8-10.8) Red Blood Count 2.78 M/UL (4.70-6.10) Hemoglobin 7.6 G/DL (14.2-18.0) Hematocrit 24.6 % (42.0-52.0) Mean Corpuscular Volume 88 FL (80-99) Mean Corpuscular Hemoglobin 27.5 PG (27.0-31.0) Mean Corpuscular Hemoglobin Concent 31.1 G/DL (32.0-36.0) Red Cell Distribution Width 18.6 % (11.6-14.8) Platelet Count 93 K/UL (150-450) Mean Platelet Volume 9.5 FL (6.5-10.1) Neutrophils (%) (Auto) % (45.0-75.0) Lymphocytes (%) (Auto) % (20.0-45.0) Monocytes (%) (Auto) % (1.0-10.0) Eosinophils (%) (Auto) % (0.0-3.0) Basophils (%) (Auto) % (0.0-2.0) Prothrombin Time 16.7 SEC (9.30-11.50) Prothromb Time International Ratio 1.6 (0.9-1.1) Activated Partial Thromboplast Time 39 SEC (23-33) Sodium Level 135 MMOL/L (136-145) Potassium Level 3.5 MMOL/L (3.5-5.1) Chloride Level 105 MMOL/L (98-107) Carbon Dioxide Level 20 MMOL/L (21-32) Anion Gap 10 mmol/L (5-15) Blood Urea Nitrogen 5 mg/dL (7-18) Creatinine 0.6 MG/DL (0.55-1.30) Estimat Glomerular Filtration Rate > 60 mL/min (>60) Glucose Level 71 MG/DL (74-106) Calcium Level 7.7 MG/DL (8.5-10.1) Ionized Calcium (Measured) 1.02 mmol/L (1.10-1.35) Phosphorus Level 3.1 MG/DL (2.5-4.9) Magnesium Level 1.8 MG/DL (1.8-2.4) Total Bilirubin 3.1 MG/DL (0.2-1.0) Direct Bilirubin 2.1 MG/DL (0.0-0.3) Aspartate Amino Transf (AST/SGOT) 80 U/L (15-37) Alanine Aminotransferase (ALT/SGPT) 22 U/L (12-78) Alkaline Phosphatase 161 U/L (46-116) Total Protein 8.4 G/DL (6.4-8.2) Albumin 1.3 G/DL (3.4-5.0) Globulin 7.1 g/dL Albumin/Globulin Ratio 0.2 (1.0-2.7) Lipase 213 U/L (73-393) Body Fluid Total Protein 2.5 g/dL (.) Test 07/06/19 04:50 07/06/19 05:40 07/07/19 05:15 Sodium Level 138 MMOL/L (136-145) 140 MMOL/L (136-145) Potassium Level 3.0 MMOL/L (3.5-5.1) 2.9 MMOL/L (3.5-5.1) Chloride Level 107 MMOL/L (98-107) 109 MMOL/L (98-107) Carbon Dioxide Level 24 MMOL/L (21-32) 26 MMOL/L (21-32) Anion Gap 7 mmol/L (5-15) 5 mmol/L (5-15) Blood Urea Nitrogen 4 mg/dL (7-18) 5 mg/dL (7-18) Creatinine 0.8 MG/DL (0.55-1.30) 0.9 MG/DL (0.55-1.30) Estimat Glomerular Filtration Rate > 60 mL/min (>60) > 60 mL/min (>60) Glucose Level 102 MG/DL (74-106) 115 MG/DL (74-106) Calcium Level 7.7 MG/DL (8.5-10.1) 7.7 MG/DL (8.5-10.1) Ionized Calcium (Measured) 1.08 mmol/L (1.10-1.35) 1.12 mmol/L (1.10-1.35) Phosphorus Level 3.5 MG/DL (2.5-4.9) 2.7 MG/DL (2.5-4.9) Magnesium Level 1.4 MG/DL (1.8-2.4) 1.7 MG/DL (1.8-2.4) Total Bilirubin 2.6 MG/DL (0.2-1.0) 2.7 MG/DL (0.2-1.0) Direct Bilirubin 1.8 MG/DL (0.0-0.3) 1.8 MG/DL (0.0-0.3) Aspartate Amino Transf (AST/SGOT) 72 U/L (15-37) 74 U/L (15-37) Alanine Aminotransferase (ALT/SGPT) 19 U/L (12-78) 17 U/L (12-78) Alkaline Phosphatase 129 U/L (46-116) 129 U/L (46-116) Total Protein 7.5 G/DL (6.4-8.2) 7.6 G/DL (6.4-8.2) Albumin 1.0 G/DL (3.4-5.0) 1.1 G/DL (3.4-5.0) Globulin 6.5 g/dL Albumin/Globulin Ratio 0.2 (1.0-2.7) White Blood Count 10.0 K/UL (4.8-10.8) 9.0 K/UL (4.8-10.8) Red Blood Count 2.75 M/UL (4.70-6.10) 2.77 M/UL (4.70-6.10) Hemoglobin 7.4 G/DL (14.2-18.0) 7.6 G/DL (14.2-18.0) Hematocrit 24.2 % (42.0-52.0) 24.3 % (42.0-52.0) Mean Corpuscular Volume 88 FL (80-99) 88 FL (80-99) Mean Corpuscular Hemoglobin 26.9 PG (27.0-31.0) 27.5 PG (27.0-31.0) Mean Corpuscular Hemoglobin Concent 30.6 G/DL (32.0-36.0) 31.3 G/DL (32.0-36.0) Red Cell Distribution Width 19.2 % (11.6-14.8) 19.4 % (11.6-14.8) Platelet Count 75 K/UL (150-450) 80 K/UL (150-450) Mean Platelet Volume 9.4 FL (6.5-10.1) 8.0 FL (6.5-10.1) Neutrophils (%) (Auto) % (45.0-75.0) % (45.0-75.0) Lymphocytes (%) (Auto) % (20.0-45.0) % (20.0-45.0) Monocytes (%) (Auto) % (1.0-10.0) % (1.0-10.0) Eosinophils (%) (Auto) % (0.0-3.0) % (0.0-3.0) Basophils (%) (Auto) % (0.0-2.0) % (0.0-2.0) Differential Total Cells Counted 100 100 Neutrophils % (Manual) 83 % (45-75) 74 % (45-75) Lymphocytes % (Manual) 2 % (20-45) 7 % (20-45) Monocytes % (Manual) 5 % (1-10) 18 % (1-10) Eosinophils % (Manual) 0 % (0-3) 1 % (0-3) Basophils % (Manual) 0 % (0-2) 0 % (0-2) Band Neutrophils 10 % (0-8) 0 % (0-8) Nucleated Red Blood Cells 2 /100 WBC Platelet Estimate Decreased Decreased Platelet Morphology Normal Normal Polychromasia 1+ 1+ Hypochromasia 2+ Anisocytosis 2+ 1+ Prothrombin Time 18.7 SEC (9.30-11.50) Prothromb Time International Ratio 1.8 (0.9-1.1) Ammonia 85 umol/L (11-32) Height (Feet): 5 Height (Inches): 8.00 Weight (Pounds): 180 Objective Physical Exam: Vitals: reviewed General Appearance: NAD HEENT: normocephalic, atraumatic Neck: non-tender, normal alignment Respiratory/Chest: normal breath sounds bilaterally Cardiovascular/Chest: normal peripheral pulses, normal rate Abdomen: normal bowel sounds, soft, nontender +++ ascites Avery Guo MD Jul 07, 2019 11:14
[2019-07-07 12:00] VITALS: BP 129/86
--- NOTE | 2019-07-07 12:21 | General Progress Note ---
Assessment/Plan Assessment/Plan: 48-year-old male with past medical history of EtOH abuse presented found down. #Encephalopathy likely multifactorial including hepatic encephalopathy ( elevated ammonia), as well as sepsis (new fever of 100.4, tachycardia) -Treat underlying conditions, and continue medications as below #Sepsis secondary to possible SBP, decompensated liver cirrhosis, -Evaluate for other sources such as bacteremia, pneumonia, C. difficile ( lactulose was ordered but patient did not receive) - cxr shows patchy LL infiltrate - f/u bcxs, UA, cdiff -cont. vancomycin and Zosyn (07/06) -Infectious disease consult, appreciate recs # Lice - primerin treatment #Liver cirrhosis secondary to EtOH - DF 31 -MELD 15 -Abdominal ultrasound reviewed -Status post paracentesis 07/05/2019 with removal of 8 L., Follow-up diagnostic results evaluate for SBP, ordered but not done??? -Albumin for BP support as needed -Supportive care - lactulose po not given 2/2 AMS, instructed to give MT #Anemia, likely might multifactorial including acute blood loss anemia, anemia of chronic disease -Hematology consult, appreciate recs -Iron panel: Reviewed -Low folate: Replace -B12 within normal limits above 800 -GI consult, appreciate recs #Substance abuse -Check UDS -Check hepatitis and HIV: hiv neg, hep pending -Social work Consult - Psyche consult, appreciate recs #Hypokalemia Replace, continue to monitor # Hypocalcemia - replace #full code The time of my note may not reflect the time of my patient encounter. Subjective Date patient seen: Jul 07, 2019 Allergies: Coded Allergies: No Known Allergies (Unverified , 07/03/19) Subjective fevers last night. patient continues to be encephalopathic, and was not given lactulose- see plan. per rn no bleeding, not able to take in po 2/2 ams. Objective Last 24 Hour Vital Signs Date Time Temp Pulse Resp B/P (MAP) Pulse Ox O2 Delivery O2 Flow Rate FiO2 07/07/19 08:00 97.7 107 22 124/79 (94) 97 07/07/19 08:00 Room Air 07/07/19 07:40 103 07/07/19 04:00 98.6 122 22 110/69 (83) 99 07/07/19 04:00 127 07/07/19 04:00 Room Air 07/07/19 00:00 125 8/25/19 00:00 98.4 98 22 137/83 (101) 97 07/07/19 00:00 Room Air 07/06/19 20:00 133 07/06/19 20:00 98.2 123 24 131/77 (95) 96 07/06/19 20:00 Room Air 07/06/19 16:00 Room Air 07/06/19 16:00 100.3 126 26 127/63 (84) 92 07/06/19 16:00 123 Intake and Output 07/06/19 07/07/19 19:00 07:00 Intake Total 385.0 ml Balance 385.0 ml IV Total 385.0 ml # Voids 1 Laboratory Tests 07/07/19 05:15: White Blood Count 9.0, Red Blood Count 2.77L, Hemoglobin 7.6L, Hematocrit 24.3L , Mean Corpuscular Volume 88, Mean Corpuscular Hemoglobin 27.5, Mean Corpuscular Hemoglobin Concent 31.3L, Red Cell Distribution Width 19.4H, Platelet Count 80L, Mean Platelet Volume 8.0, Neutrophils (%) (Auto) , Lymphocytes (%) (Auto) , Monocytes (%) (Auto) , Eosinophils (%) (Auto) , Basophils (%) (Auto) , Differential Total Cells Counted 100, Neutrophils % ( Manual) 74, Lymphocytes % (Manual) 7L, Monocytes % (Manual) 18H, Eosinophils % ( Manual) 1, Basophils % (Manual) 0, Band Neutrophils 0, Platelet Estimate DecreasedL, Platelet Morphology Normal, Polychromasia 1+, Anisocytosis 1+, Sodium Level 140, Potassium Level 2.9L, Chloride Level 109H, Carbon Dioxide Level 26, Anion Gap 5, Blood Urea Nitrogen 5L, Creatinine 0.9, Estimat Glomerular Filtration Rate > 60, Glucose Level 115H, Calcium Level 7.7L, Ionized Calcium (Measured) 1.12, Phosphorus Level 2.7, Magnesium Level 1.7L Height (Feet): 5 Height (Inches): 8.00 Weight (Pounds): 180 Objective GENERAL: Patient unable to answer appropriately, shaking in bed HEENT: NCAT, icteric eyes, pupils PERRLA Neck: No cervical lymphadenopathy, trachea midline CV: Tachycardic, no murmurs rubs or gallops RESP: Clear to auscultation bilaterally, no wheezes/rhonchi/crackles ABD: Distended with positive ascites, improved after paracentesis, soft and umbilical hernia EXT: Normal muscle tone, +5/5 muscle strength, no edema NEURO: Encephalopathic, normal muscle tone, tremulous, does not follow commands , oriented to name Tori Etienne DO Jul 07, 2019 12:21
--- NOTE | 2019-07-07 12:32 | NUR ---
NURSE NOTES: Call received from lab for blood culture results gram positive cocci in clusters, 2 bottles. Spoke with Merly. Message relayed to pt's primary nurse, JOSEFINA Quintana.
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
[2019-07-07] MEDS ORDERED: Lactulose 20gm/30ml UDC ORAL SCH (14:00)
[2019-07-07] MEDS ORDERED: Phytonadione 10 mg/mL 1ml amp SUBQ SCH (14:00)
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
--- NOTE | 2019-07-07 15:45 | Infectious Diseases Prog Note ---
Assessment/Plan Assessment/Plan Full consult dictated: sepsis gram + bacteremia pna s/p paracentesis doubt uti check labs check cultures zosyn and vancomycin for now thank you Subjective Allergies: Coded Allergies: No Known Allergies (Unverified , 07/03/19) Objective Vital Signs Last 24 Hour Vital Signs Date Time Temp Pulse Resp B/P (MAP) Pulse Ox O2 Delivery O2 Flow Rate FiO2 07/07/19 08:00 97.7 107 22 124/79 (94) 97 07/07/19 08:00 Room Air 07/07/19 07:40 103 07/07/19 04:00 98.6 122 22 110/69 (83) 99 07/07/19 04:00 127 07/07/19 04:00 Room Air 07/07/19 00:00 125 07/07/19 00:00 98.4 98 22 137/83 (101) 97 07/07/19 00:00 Room Air 07/06/19 20:00 133 07/06/19 20:00 98.2 123 24 131/77 (95) 96 07/06/19 20:00 Room Air 07/06/19 16:00 Room Air 07/06/19 16:00 100.3 126 26 127/63 (84) 92 07/06/19 16:00 123 Height (Feet): 5 Height (Inches): 8.00 Weight (Pounds): 180 Microbiology Date/Time Source Procedure Growth Status 07/06/19 13:45 Blood Blood Culture - Preliminary Resulted Laboratory Tests Test 07/07/19 05:15 07/07/19 13:08 White Blood Count 9.0 K/UL (4.8-10.8) Red Blood Count 2.77 M/UL (4.70-6.10) L Hemoglobin 7.6 G/DL (14.2-18.0) L Hematocrit 24.3 % (42.0-52.0) L Mean Corpuscular Volume 88 FL (80-99) Mean Corpuscular Hemoglobin 27.5 PG (27.0-31.0) Mean Corpuscular Hemoglobin Concent 31.3 G/DL (32.0-36.0) L Red Cell Distribution Width 19.4 % (11.6-14.8) H Platelet Count 80 K/UL (150-450) L Mean Platelet Volume 8.0 FL (6.5-10.1) Neutrophils (%) (Auto) % (45.0-75.0) Lymphocytes (%) (Auto) % (20.0-45.0) Monocytes (%) (Auto) % (1.0-10.0) Eosinophils (%) (Auto) % (0.0-3.0) Basophils (%) (Auto) % (0.0-2.0) Differential Total Cells Counted 100 Neutrophils % (Manual) 74 % (45-75) Lymphocytes % (Manual) 7 % (20-45) L Monocytes % (Manual) 18 % (1-10) H Eosinophils % (Manual) 1 % (0-3) Basophils % (Manual) 0 % (0-2) Band Neutrophils 0 % (0-8) Platelet Estimate Decreased L Platelet Morphology Normal Polychromasia 1+ Anisocytosis 1+ Sodium Level 140 MMOL/L (136-145) Potassium Level 2.9 MMOL/L (3.5-5.1) L Chloride Level 109 MMOL/L (98-107) H Carbon Dioxide Level 26 MMOL/L (21-32) Anion Gap 5 mmol/L (5-15) Blood Urea Nitrogen 5 mg/dL (7-18) L Creatinine 0.9 MG/DL (0.55-1.30) Estimat Glomerular Filtration Rate > 60 mL/min (>60) Glucose Level 115 MG/DL (74-106) H Calcium Level 7.7 MG/DL (8.5-10.1) L Ionized Calcium (Measured) 1.12 mmol/L (1.10-1.35) Phosphorus Level 2.7 MG/DL (2.5-4.9) Magnesium Level 1.7 MG/DL (1.8-2.4) L Vancomycin Level Trough 9.9 ug/mL (5.0-12.0) Current Medications Medications (Trade) Dose Ordered Sig/Tanja Route PRN Reason Start Time Stop Time Status Last Admin Dose Admin Chlordiazepoxide (Librium) 25 mg TID ORAL 07/05/19 13:30 07/12/19 13:29 07/07/19 14:17 Folic Acid (Folate) 1 mg DAILY ORAL 07/04/19 10:30 08/03/19 10:29 07/06/19 09:55 Lactulose (Cephulac) 20 gm THREE TIMES A DAY ORAL 07/05/19 13:00 08/04/19 12:59 07/07/19 14:17 Lactulose 45 gm/ Sterile Water 167.5 ml @ 0 mls/hr BID IRRIG 07/07/19 16:00 08/06/19 15:59 Lorazepam (Ativan) 2 mg Q6H PRN ORAL For Anxiety 07/05/19 00:15 07/12/19 00:14 07/06/19 21:45 Pantoprazole (Protonix) 40 mg EVERY 12 HOURS IVP 07/04/19 09:00 08/03/19 08:59 07/07/19 08:30 Phytonadione (Vitamin K) 10 mg ONCE SUBQ 07/07/19 14:00 07/07/19 16:00 Piperacillin Sod/ Tazobactam Sod 3.375 gm/Sodium Chloride 110 ml @ 27.5 mls/hr Q8HR@0000,0800,1600 IVPB 07/06/19 16:00 07/13/19 15:59 07/07/19 08:30 Thiamine HCl (Vitamin B1) 100 mg DAILY ORAL 07/04/19 10:30 08/03/19 10:29 07/06/19 09:55 Vancomycin HCl (Vanco rx to dose) 1 ea DAILY PRN MISC Per rx protocol 07/06/19 13:00 08/05/19 12:59 Vancomycin/Sodium Chloride 275 ml @ 183.333 mls/hr Q8HR IVPB 07/07/19 15:00 07/12/19 14:59 Dionna Tee MD Jul 07, 2019 15:45
[2019-07-07 16:00] VITALS: BP 139/86
[2019-07-07] MEDS: Azithromycin 250mg tab ORAL SCH (16:00)
[2019-07-07] MEDS: Vancomycin 1.25gm/NS Premix IVPB SCH ×2 (16:14→21:03)
[2019-07-07] MEDS: [UNRECOGNIZED DRUG - OTHER] IRRIG SCH (16:16)
[2019-07-07] MEDS: LACTULOSE IRRIG SCH (16:16)
[2019-07-07] MEDS ORDERED: Tubing IV Secondary IV ONE (17:54)
[2019-07-07] MEDS ORDERED: NS 500ML ONE (17:54)
[2019-07-07] MEDS ORDERED: NS 275ml ONE (17:54)
--- NOTE | 2019-07-07 19:29 | NUR ---
NURSE NOTES: Received report form Lilian RN, pt. in bed awake, A/O x's 1- to name, no signs or symptoms of acute cardiac or respiratory distress noted, pt. is NPO- per endorsement, bed in lowest position and call light within easy reach, bed alarm on, side rails up x's3 and safety brakes engaged, RFA 20G IV intact and patent, safety measures continued will continue with plan of care.
--- NOTE | 2019-07-07 19:32 | NUR ---
HAND-OFF: Report given to Alyse ROCHA. Pt. remain stable.
[2019-07-07 19:35] LABS: APPEARANCE,URINE CLEAR; BILIRUBIN, URINE 1+ (NEGATIVE); COLOR,URINE BROWN; GLUCOSE, URINE (UA) NEGATIVE (NEGATIVE); KETONES,URINE 1+ (NEGATIVE); LEUKOCYTE ESTERASE ,URINE 1+ (NEGATIVE); NITRITE,URINE NEGATIVE (NEGATIVE); PH,URINE 6.5 (4.5-8.0); PROTEIN,URINE 1+ (NEGATIVE); UROBILINOGEN,URINE 8 MG/DL (0.0-1.0)
[2019-07-07 20:00] VITALS: BP 132/92
[2019-07-08] VITALS: BP 125/76
[2019-07-08 04:00] VITALS: BP 134/75
[2019-07-08] MEDS: Vancomycin 1.25gm/NS Premix IVPB SCH (05:08)
[2019-07-08 05:22] LABS: HEMATOCRIT 24.7 % (42.0-52.0); HEMOGLOBIN 7.6 G/DL (14.2-18.0); MEAN CORPUSCULAR VOLUME 90 FL (80-99); PLATELET COUNT 74 K/UL (150-450); RED BLOOD COUNT 2.73 M/UL (4.70-6.10)
[2019-07-08 05:51] LABS: ALANINE AMINOTRANSFERASE 15 U/L (12-78); ALBUMIN/GLOBULIN RATIO 0.2 (1.0-2.7); ALKALINE PHOSPHATASE 100 U/L (46-116); ANION GAP 7 mmol/L (5-15); ASPARTATE AMINO TRANSFERASE 58 U/L (15-37); BLOOD UREA NITROGEN 7 mg/dL (7-18); CALCIUM 7.9 MG/DL (8.5-10.1); CARBON DIOXIDE 23 MMOL/L (21-32); CHLORIDE 110 MMOL/L (98-107); CREATININE 0.9 MG/DL (0.55-1.30); POTASSIUM 2.9 MMOL/L (3.5-5.1); SODIUM 140 MMOL/L (136-145)
[2019-07-08 06:06] LABS: BILIRUBIN,DIRECT 1.5 MG/DL (0.0-0.3)
--- NOTE | 2019-07-08 07:01 | NUR ---
HAND-OFF: Report given to Rodrick RN, pt. remains stable and no signs of distress noted- aware to f/u with abnormal labs with doctor.
[2019-07-08] MEDS: LORazepam 0.5mg tab ORAL PRN ×2 (07:40→23:07)
[2019-07-08] MEDS: Piperacillin/Tazobactam 3.375 GM in NS 110 ML IVPB SCH ×2 (07:42→15:18)
[2019-07-08 08:00] VITALS: BP 138/85
--- NOTE | 2019-07-08 08:00 | NUR ---
NURSE NOTES: Dr. Guo seen and examined patient, made aware of Hgb 7.6. Dr. Guo acknowledged, ordered maintain hemoglobin goal of >7. Noted. Will continue to monitor a patient.
[2019-07-08] MEDS: Azithromycin 250mg tab ORAL SCH (09:36)
[2019-07-08] MEDS: Pantoprazole Inj IVP SCH ×2 (09:36→21:51)
[2019-07-08] MEDS: Thiamine 100mg tab ORAL SCH (09:36)
[2019-07-08] MEDS: Lactulose 20gm/30ml UDC ORAL SCH ×3 (09:37→17:27)
[2019-07-08] MEDS: chlordiazePOXIDE 25mg Cap ORAL SCH ×3 (09:37→17:27)
--- NOTE | 2019-07-08 10:40 | NUR ---
CASE MANAGEMENT: REVIEW 07/06/2019 SI:ETHANOL INTOXICATION. ANEMIA. ABD DISTENTION. T 98.2 HR 123 RR 24 B/P 131/77 SATS 96% ON RA HGB 7.4 HCT 24.2 K 3 BUN 4 CA 7.7 MG 1.4 TBILI 2.6 DBILI 1.8 AST 72 ALP 129 IS: IVF @ 50 mL/HR PROTONIX IV Q12H FOLATE PO QD THIAMINE PO QD VANCO IV Q8H AZITHROMYCIN PO QD LACTULOSE BID IRRIGATION CXR IMPRESSION: Reduced lung volumes. Mild patchy infiltrate at the left lung base. SDU DCP: PATIENT TO BE DISCHARGED TO APPROPRIATE LOCATION ONCE MEDICALLY CLEARED. PLAN OF CARE: VENOUS DUPLEX (-) US PARACENTESIS >>> 8.15 liters of fluid 07/07/2019 SI:ETHANOL INTOXICATION. ANEMIA. ABD DISTENTION. T 96 HR 106 RR 20 B/P 132/92 SATS 100% ON RA HGB 7.6 HCT 24.3 K 2.9 CL 109 BUN 5 GLU 115 CA 7.7 IS: IVF @ 50 mL/HR PROTONIX IV Q12H FOLATE PO QD THIAMINE PO QD VANCO IV Q8H AZITHROMYCIN PO QD LACTULOSE BID IRRIGATION SDU DCP: PATIENT TO BE DISCHARGED TO APPROPRIATE LOCATION ONCE MEDICALLY CLEARED. PLAN OF CARE: AMS CONTINUES 07/08/2019 SI:ETHANOL INTOXICATION. ANEMIA. ABD DISTENTION. T 97.5 HR 102 RR 20 B/P 138/85 SATS 100% ON RA HGB 7.5 HCT 24.3 K 2.9 CL 110 CA 7.9 TBILI 2 DBILI 1.5 AST 58 IS: IVF @ 50 mL/HR PROTONIX IV Q12H FOLATE PO QD THIAMINE PO QD VANCO IV Q8H AZITHROMYCIN PO QD LACTULOSE BID IRRIGATION SDU DCP: PATIENT TO BE DISCHARGED TO APPROPRIATE LOCATION ONCE MEDICALLY CLEARED.
[2019-07-08] MEDS ORDERED: Sodium Chloride for KCL Premix X 4hrs IV SCH (11:00)
[2019-07-08 11:52] VITALS: BP 117/61
--- NOTE | 2019-07-08 11:54 | NUR ---
NURSE NOTES: Dr. Thapa at nurse station made aware of chemistry levels. Dr. Thapa ordered Potassium chloride 10 mEq IV x 4, magnesium sulfate 1 gm IV x 2. potassium and magnesium lab tomorrow AM. Patient is both on PO and rectal lactulose, pt can take PO meds. Dr. Thapa discontinued rectal lactulose. Noted.
--- NOTE | 2019-07-08 11:58 | NUR ---
RD ASSESSMENT & RECOMMENDATIONS SEE CARE ACTIVITY FOR COMPLETE ASSESSMENT DAILY ESTIMATED NEEDS: Needs based on Cirrhosis/ 60kg abw 25-30 kcals/kg 7315-9174 total kcals 1-1.5 g protein/kg 60-90 g total protein 25-30 mL/kg 0819-2654 total fluid mLs NUTRITION DIAGNOSIS: * Altered nutrition related lab values R/T cirrhosis, h/o ETOH abuse, clinical condition as evidenced by elev AST and T bili (2.0), elev NH3 (85), low K (2.9), low mag (1.7), low folate (5.1) * Swallowing difficulty R/T confusion, encephalopathy as evidenced by NPO at this time CURRENT DIET:NPO PO DIET RECOMMENDATIONS: WHEN SAFE FOR ORAL DIET -> LOW NA/ texture per GRINDING SUPERVISOR ENTERAL NUTRITION RECOMMENDATIONS: REC NONORAL FEEDING IF UNABLE TO FEED BY MOUTH IN THE NEXT 2-3 DAYS ADDITIONAL RECOMMENDATIONS: * Calibrated bedscale wt for accurate CBW :Bedscale wt: 157lbs vs EMR wt: 180lbs * Monitor lytes daily, replete as needed (low K and mag) * GRINDING SUPERVISOR evaluation for appropriate texture * Rec nonoral feeding if unable to start oral diet in the next 2-3 days * Add MVI x 1
--- NOTE | 2019-07-08 12:01 | NUR ---
NOTES: REFERRED BY MARIA EUGENIA CLEVELAND; MARIE, AND GIOVANNY FOR SWALLOW EVALUATION, SEE FULL REPORT TO FOLLOW IN CARE ACTIVITY SECTION. ACUTE ISSUES: MET/TOXIC ENCEPHALOPATHY, ETOH INTOXICATION, FACIAL TRAUMA AND CONTUSION, LUNGS WITH INFILTRATE L LUNG BASE, LOW ALBUMIN 1.2, ANEMIA, ASCITES 8 LITERS TAKEN OUT OF ABDOMEN HAD DISTENSION, ABDOMINAL DISTENTION, LICE, OVERWEIGHT PER RD. H/O ETOH ABUSE, GERD, LIVER CIRRHOSIS, AND HOMELESS/TRANSIENT NO POLST/AD REGARDING TF PREFERENCES ? DIET PRIOR TO ADMIT AND WAS ON LOW NA REG TEXTURE AND THIN LIQUIDS BUT DID NOT HAVE PO AND NPO SINCE 07/03 (5-6 DAYS NPO) BY GI DR LEI. PER DR SALAZAR, WE NEED TO CONSULT WITH GI ABOUT R/O ESOPHAGEAL VARICES. PER RN, JUST GIVEN ATIVAN SINCE HE WAS AGITATED AND CONFUSED AND TRYING TO GET OUT OF BED. INITIAL IMPRESSIONS: S/S OF A HIGH RISK AND SIGNIFICANT OROPHARYNGEAL ORAL PREP AND OROPHARYNGEAL DYSPHAGIA WITH INCREASED OVERALL TRANSIT TIMES. ALERT WITH CUES BUT CONFUSED AND SPEECH INTELLIGIBILITY (SOFT VOICE AND IMPRECISE ARTICULATION) IS POOR (BARELY MOVES THIS LIPS (LOWER LIP HAS DRIED BLOOD) AND DOESN'T OPEN MOUTH MUCH. TEETH ARE ADEQUATE BUT HAVE DRIED BLOOD. HIS TONGUE TREMORS AND HE HAD POOR PROTRUSION, DID NOT LATERALIZE NOR ELEVATE/DEPRESSION. GIVEN TSP THIN LIQUIDS HAS SLOWER 5 SECONDS TRANSIT TIMES AND COUGHS (? ASPIRATES) AFTER SWALLOW (FAIR HYOLARYNGEAL EXCURSION) DOES NOT ALLOW ORAL INSPECTION. UNABLE TO SUCK THROUGH STRAW AND POOR LIP CLOSURE WITH CUP (LOWER LIP HAS DRIED BLOOD). GIVEN TSP NECTAR THICK LIQUIDS NO COUGH BUT 5 SEC TO SWALLOW, DOES NOT ALLOW ORAL INSPECTION. 5-6 DAYS NO PO INTAKE. RECOMMENDATIONS: CONSERVATIVELY, CONSIDER NONORAL FEEDINGS FOR NOW (IF CLEARED BY GI) 12 MAORI NGT UNTIL HE IS READY FOR A MODIFIED BARIUM SWALLOW STUDY (TO R/O SILENT ASPIRATION HAD HEAD/FACIAL TRAUMA AND HAS INFILTRATE IN L LUNG BASE), LESS AGITATED, AND MORE ALERT. COMPLETE ORAL CARE IF RECEPTIVE AND TOLERATED. COMPLETE SKILLED DYSPHAGIA MANAGEMENT AND TX COMPLETE COGNITIVE-COMMUNICATIVE EVAL/TX D/W JOSEFINA JARAMILLO AND DR SALAZAR (WHO AGREES WITH RECOMMENDATIONS) Addendum: 07/08/19 at 1340 by MIKA GRAVES CELL OPERATOR ADDENDUM: PATIENT MORE ALERT PER RN. GI RECOMMENDING PO FOR NOW NO NGT. NPO SAFEST BUT IF PO GIVEN CONSIDER CARDIAC LIQUIFIED PUREED LIKE NECTAR THICK SOUP CONSISTENCY TSP ONLY WITH POSTED ASPIRATION PRECAUTIONS. CALORIE COUNT 2 DAYS AND SEND HIGH BLAKE SUPPLEMENTS PER RD (ENSURE ENLIVE) OK PER GI DIRECTOR OF COMMUNITY EDUCATION JALEN
--- NOTE | 2019-07-08 12:28 | Infectious Diseases Prog Note ---
Assessment/Plan Assessment/Plan sepsis gram + bacteremia - staph species so far pna s/p paracentesis doubt uti check labs check cultures zosyn and vancomycin for now check final cultures d/w Dr. Thapa Subjective Constitutional: Denies: fever HEENT: Denies: congestion Respiratory: Denies: shortness of breath Cardiovascular: Denies: chest pain Gastrointestinal/Abdominal: Denies: nausea, vomiting Allergies: Coded Allergies: No Known Allergies (Unverified , 07/03/19) Objective Vital Signs Last 24 Hour Vital Signs Date Time Temp Pulse Resp B/P (MAP) Pulse Ox O2 Delivery O2 Flow Rate FiO2 07/08/19 11:52 97.3 92 20 117/61 (79) 100 07/08/19 08:00 Room Air 07/08/19 08:00 110 07/08/19 08:00 97.5 102 20 138/85 (102) 100 07/08/19 04:00 97.7 100 20 134/75 (94) 97 07/08/19 04:00 Room Air 07/08/19 03:28 114 07/08/19 00:00 98.2 107 18 125/76 (92) 98 07/08/19 00:00 Room Air 07/08/19 00:00 107 07/07/19 20:00 96.0 106 20 132/92 (105) 100 07/07/19 20:00 113 07/07/19 20:00 Room Air 07/07/19 16:00 98.1 106 21 139/86 (103) 100 07/07/19 16:00 Room Air 07/07/19 16:00 104 Height (Feet): 5 Height (Inches): 8.00 Weight (Pounds): 180 General Appearance: no acute distress HEENT: normocephalic, atraumatic, anicteric Respiratory/Chest: lungs clear, normal breath sounds, no respiratory distress Cardiovascular: normal rate, regular rhythm Microbiology Date/Time Source Procedure Growth Status 07/06/19 13:45 Blood Blood Culture - Preliminary Staphylococcus Species Resulted 07/07/19 19:19 Straight Cath Urine Culture - Preliminary NO GROWTH Resulted Laboratory Tests Test 07/07/19 13:08 07/07/19 15:15 07/07/19 19:19 07/08/19 03:50 Vancomycin Level Trough 9.9 ug/mL (5.0-12.0) Mycoplasma pneumoniae IgG Antibody Pending Mycoplasma pneumoniae IgM Ab Titer Pending Urine Color Brown Urine Appearance Clear Urine pH 6.5 (4.5-8.0) Urine Specific [place] 1.010 (1.005-1.035) Urine Protein 1+ (NEGATIVE) H Urine Glucose (UA) Negative (NEGATIVE) Urine Ketones 1+ (NEGATIVE) H Urine Blood 4+ (NEGATIVE) H Urine Nitrite Negative (NEGATIVE) Urine Bilirubin 1+ (NEGATIVE) H Urine Ictotest Negative (NEGATIVE) Urine Urobilinogen 8 MG/DL (0.0-1.0) H Urine Leukocyte Esterase 1+ (NEGATIVE) H Urine RBC 5-10 /HPF (0 - 0) H Urine WBC 2-4 /HPF (0 - 0) Urine Squamous Epithelial Cells None /LPF (NONE/OCC) Urine Bacteria Moderate /HPF (NONE) H Urine Yeast Few /HPF (NONE) H White Blood Count 8.0 K/UL (4.8-10.8) Red Blood Count 2.73 M/UL (4.70-6.10) L Hemoglobin 7.6 G/DL (14.2-18.0) L Hematocrit 24.7 % (42.0-52.0) L Mean Corpuscular Volume 90 FL (80-99) Mean Corpuscular Hemoglobin 27.7 PG (27.0-31.0) Mean Corpuscular Hemoglobin Concent 30.6 G/DL (32.0-36.0) L Red Cell Distribution Width 22.0 % (11.6-14.8) H Platelet Count 74 K/UL (150-450) L Mean Platelet Volume 7.6 FL (6.5-10.1) Neutrophils (%) (Auto) % (45.0-75.0) Lymphocytes (%) (Auto) % (20.0-45.0) Monocytes (%) (Auto) % (1.0-10.0) Eosinophils (%) (Auto) % (0.0-3.0) Basophils (%) (Auto) % (0.0-2.0) Differential Total Cells Counted 100 Neutrophils % (Manual) 61 % (45-75) Lymphocytes % (Manual) 18 % (20-45) L Monocytes % (Manual) 19 % (1-10) H Eosinophils % (Manual) 2 % (0-3) Basophils % (Manual) 0 % (0-2) Band Neutrophils 0 % (0-8) Platelet Estimate Decreased L Platelet Morphology Normal Polychromasia 1+ Hypochromasia 2+ Anisocytosis 2+ Target Cells Occasional Sodium Level 140 MMOL/L (136-145) Potassium Level 2.9 MMOL/L (3.5-5.1) L Chloride Level 110 MMOL/L (98-107) H Carbon Dioxide Level 23 MMOL/L (21-32) Anion Gap 7 mmol/L (5-15) Blood Urea Nitrogen 7 mg/dL (7-18) Creatinine 0.9 MG/DL (0.55-1.30) Estimat Glomerular Filtration Rate > 60 mL/min (>60) Glucose Level 87 MG/DL (74-106) Calcium Level 7.9 MG/DL (8.5-10.1) L Magnesium Level 1.7 MG/DL (1.8-2.4) L Total Bilirubin 2.0 MG/DL (0.2-1.0) H Direct Bilirubin 1.5 MG/DL (0.0-0.3) H Aspartate Amino Transf (AST/SGOT) 58 U/L (15-37) H Alanine Aminotransferase (ALT/SGPT) 15 U/L (12-78) Alkaline Phosphatase 100 U/L (46-116) Total Protein 7.3 G/DL (6.4-8.2) Albumin 1.0 G/DL (3.4-5.0) L Globulin 6.3 g/dL Albumin/Globulin Ratio 0.2 (1.0-2.7) L Prealbumin Pending Current Medications Medications (Trade) Dose Ordered Sig/Tanja Route PRN Reason Start Time Stop Time Status Last Admin Dose Admin Azithromycin (Zithromax) 500 mg DAILY ORAL 07/07/19 16:00 07/14/19 15:59 07/08/19 09:36 Chlordiazepoxide (Librium) 25 mg TID ORAL 07/05/19 13:30 07/12/19 13:29 07/08/19 12:08 Folic Acid (Folate) 1 mg DAILY ORAL 07/04/19 10:30 08/03/19 10:29 07/08/19 09:37 Lactulose (Cephulac) 20 gm THREE TIMES A DAY ORAL 07/05/19 13:00 08/04/19 12:59 07/08/19 12:08 Lorazepam (Ativan) 2 mg Q6H PRN ORAL For Anxiety 07/05/19 00:15 07/12/19 00:14 07/08/19 07:40 Magnesium Sulfate 100 ml @ 100 mls/hr Q1H IVPB 07/08/19 12:45 07/08/19 14:44 07/08/19 12:20 Pantoprazole (Protonix) 40 mg EVERY 12 HOURS IVP 07/04/19 09:00 08/03/19 08:59 07/08/19 09:36 Piperacillin Sod/ Tazobactam Sod 3.375 gm/Sodium Chloride 110 ml @ 27.5 mls/hr Q8HR@0000,0800,1600 IVPB 07/06/19 16:00 07/13/19 15:59 07/08/19 07:42 Potassium Chloride 100 ml @ 100 mls/hr Q1H IVPB 07/08/19 11:00 07/08/19 14:59 07/08/19 12:07 Sodium Chloride 400 ml @ 100 mls/hr Q4H IV 07/08/19 11:00 07/08/19 14:59 07/08/19 11:00 Thiamine HCl (Vitamin B1) 100 mg DAILY ORAL 07/04/19 10:30 08/03/19 10:29 07/08/19 09:36 Vancomycin HCl (Vanco rx to dose) 1 ea DAILY PRN MISC Per rx protocol 07/06/19 13:00 08/05/19 12:59 Vancomycin/Sodium Chloride 275 ml @ 183.333 mls/hr Q8HR IVPB 07/07/19 15:00 07/12/19 14:59 07/08/19 05:08 Dionna Tee MD Jul 08, 2019 12:28
--- NOTE | 2019-07-08 13:08 | GI Progress Note ---
Assessment/Plan Problems: (1) Ascites ICD Codes: R18.8 - Other ascites SNOMED: 509954452 (2) Cirrhosis ICD Codes: K74.60 - Unspecified cirrhosis of liver SNOMED: 71737317 (3) Abdominal distension ICD Codes: R14.0 - Abdominal distension (gaseous) SNOMED: 89186316 (4) Acute alcoholic intoxication ICD Codes: F10.929 - Alcohol use, unspecified with intoxication, unspecified SNOMED: 64931460, 3240281 Qualifiers: Qualified Codes: F10.929 - Alcohol use, unspecified with intoxication, unspecified (5) Anemia ICD Codes: D64.9 - Anemia, unspecified SNOMED: 523320791 Qualifiers: Qualified Codes: D64.9 - Anemia, unspecified Status: unchanged Status Narrative Discussed with Dr. Guzman. Assessment/Plan Assessment (1) Anemia (2) Acute alcoholic intoxication (3) Cirrhosis (4) Ascites (5) Encephalopathy / delirium (6) abnormal lytes Recommendations - follow labs - po diet once more awake - hold ativan - PPI - BDZ taper - lactulose enema - replace lytes - possible EGG when more alert The patient was seen and examined at bedside and all new and available data was reviewed in the patients chart. I agree with the above findings, impression and plan. (Patient seen earlier today. Signature stamp does not reflect patient encounter time.). - Robert Guzman MD Subjective Subjective limited Objective Last 24 Hour Vital Signs Date Time Temp Pulse Resp B/P (MAP) Pulse Ox O2 Delivery O2 Flow Rate FiO2 07/08/19 12:00 Room Air 07/08/19 11:52 97.3 92 20 117/61 (79) 100 07/08/19 08:00 Room Air 07/08/19 08:00 110 07/08/19 08:00 97.5 102 20 138/85 (102) 100 07/08/19 04:00 97.7 100 20 134/75 (94) 97 07/08/19 04:00 Room Air 07/08/19 03:28 114 07/08/19 00:00 98.2 107 18 125/76 (92) 98 07/08/19 00:00 Room Air 07/08/19 00:00 107 07/07/19 20:00 96.0 106 20 132/92 (105) 100 07/07/19 20:00 113 07/07/19 20:00 Room Air 07/07/19 16:00 98.1 106 21 139/86 (103) 100 07/07/19 16:00 Room Air 07/07/19 16:00 104 Intake and Output 07/07/19 07/08/19 19:00 07:00 Intake Total 659.999 ml Balance 659.999 ml IV Total 659.999 ml # Voids 2 # Bowel Movements 1 Laboratory Tests Test 07/07/19 13:08 07/07/19 15:15 07/07/19 19:19 07/08/19 03:50 Vancomycin Level Trough 9.9 ug/mL (5.0-12.0) Mycoplasma pneumoniae IgG Antibody Pending Mycoplasma pneumoniae IgM Ab Titer Pending Urine Color Brown Urine Appearance Clear Urine pH 6.5 (4.5-8.0) Urine Specific [place] 1.010 (1.005-1.035) Urine Protein 1+ (NEGATIVE) H Urine Glucose (UA) Negative (NEGATIVE) Urine Ketones 1+ (NEGATIVE) H Urine Blood 4+ (NEGATIVE) H Urine Nitrite Negative (NEGATIVE) Urine Bilirubin 1+ (NEGATIVE) H Urine Ictotest Negative (NEGATIVE) Urine Urobilinogen 8 MG/DL (0.0-1.0) H Urine Leukocyte Esterase 1+ (NEGATIVE) H Urine RBC 5-10 /HPF (0 - 0) H Urine WBC 2-4 /HPF (0 - 0) Urine Squamous Epithelial Cells None /LPF (NONE/OCC) Urine Bacteria Moderate /HPF (NONE) H Urine Yeast Few /HPF (NONE) H White Blood Count 8.0 K/UL (4.8-10.8) Red Blood Count 2.73 M/UL (4.70-6.10) L Hemoglobin 7.6 G/DL (14.2-18.0) L Hematocrit 24.7 % (42.0-52.0) L Mean Corpuscular Volume 90 FL (80-99) Mean Corpuscular Hemoglobin 27.7 PG (27.0-31.0) Mean Corpuscular Hemoglobin Concent 30.6 G/DL (32.0-36.0) L Red Cell Distribution Width 22.0 % (11.6-14.8) H Platelet Count 74 K/UL (150-450) L Mean Platelet Volume 7.6 FL (6.5-10.1) Neutrophils (%) (Auto) % (45.0-75.0) Lymphocytes (%) (Auto) % (20.0-45.0) Monocytes (%) (Auto) % (1.0-10.0) Eosinophils (%) (Auto) % (0.0-3.0) Basophils (%) (Auto) % (0.0-2.0) Differential Total Cells Counted 100 Neutrophils % (Manual) 61 % (45-75) Lymphocytes % (Manual) 18 % (20-45) L Monocytes % (Manual) 19 % (1-10) H Eosinophils % (Manual) 2 % (0-3) Basophils % (Manual) 0 % (0-2) Band Neutrophils 0 % (0-8) Platelet Estimate Decreased L Platelet Morphology Normal Polychromasia 1+ Hypochromasia 2+ Anisocytosis 2+ Target Cells Occasional Sodium Level 140 MMOL/L (136-145) Potassium Level 2.9 MMOL/L (3.5-5.1) L Chloride Level 110 MMOL/L (98-107) H Carbon Dioxide Level 23 MMOL/L (21-32) Anion Gap 7 mmol/L (5-15) Blood Urea Nitrogen 7 mg/dL (7-18) Creatinine 0.9 MG/DL (0.55-1.30) Estimat Glomerular Filtration Rate > 60 mL/min (>60) Glucose Level 87 MG/DL (74-106) Calcium Level 7.9 MG/DL (8.5-10.1) L Magnesium Level 1.7 MG/DL (1.8-2.4) L Total Bilirubin 2.0 MG/DL (0.2-1.0) H Direct Bilirubin 1.5 MG/DL (0.0-0.3) H Aspartate Amino Transf (AST/SGOT) 58 U/L (15-37) H Alanine Aminotransferase (ALT/SGPT) 15 U/L (12-78) Alkaline Phosphatase 100 U/L (46-116) Total Protein 7.3 G/DL (6.4-8.2) Albumin 1.0 G/DL (3.4-5.0) L Globulin 6.3 g/dL Albumin/Globulin Ratio 0.2 (1.0-2.7) L Prealbumin Pending Microbiology Date/Time Source Procedure Growth Status 07/07/19 19:19 Straight Cath Urine Culture - Preliminary NO GROWTH Resulted Height (Feet): 5 Height (Inches): 8.00 Weight (Pounds): 180 General Appearance: no apparent distress, alert Cardiovascular: normal rate Respiratory/Chest: normal breath sounds, no respiratory distress Abdominal Exam: normal bowel sounds, non tender, soft Extremities: non-tender Maryam Castellanos NP Jul 08, 2019 13:08
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
--- NOTE | 2019-07-08 15:19 | NUR ---
DISCHARGE PLANNING: NOTE HOMELESS. APPLICATION FILED. PT SEEN AT BEDSIDE. TOLERATES PO MEDS AND FEEDS. ABD DISTENTION. JAUNDICE.
--- NOTE | 2019-07-08 15:30 | Hematology/Onc Progress Note ---
Assessment/Plan Assessment/Plan ASSESSMENT AND RECS # Anemia of iron deficiency in addition to suppresion from etoh abuse and cirrhosis of liver --> Anemia workup has been ordered, rule out gi bleed --> aid noted --> No evidence of hemolysis is noted, peripheral smear has been reviewed. --> Hgb goal >7. Transfuse prn. --> Hgb trend: 4.2-->7.1-->7.6 --> 7.6 --> IRON IV 200mg stat ordered x 1dose --> Medications have been reviewed --> low threshold for gi evaluation in case has occult + --> bone marrow biopsy is not indicated given the other more likely causes # Thrombocytopenia - secondary to liver cirrhosis --> Hep panel and HIV ordered - both negative --> US abd to evaluate for cirrhosis and hsm ordered - Hepatic surface nodularity, suggestive of cirrhosis. Ascites --> Peripheral smear ordered to evaluate for blasts /schistocytes and none significant noted --> abx and other meds have been reviewed --> ok for ppx if plt >50k w/ either heparin or lovenox --> Transfuse if Plt < 20k and fever, or if Plt < 10k without fever # Coagulopathy due to liver cirrhosis secondary to Etoh --> GI is following, appreciate rcs --> Abdominal ultrasound reviewed --> Supportive care --> lactulose prophylactic # Substance abuse --> psych eval # Hypokalemia --> Replace, continue to monitor # Hypocalcemia --> replete Ca++ prn # Cirrhosis of the liver The timing of this note does not necessarily reflect the time of the patient was seen. GREATLY APPRECIATE CONSULTATION. Subjective Constitutional: Denies: no symptoms, chills, fever, malaise, weakness, other Cardiovascular: Denies: no symptoms, chest pain, edema, irregular heart rate, lightheadedness, palpitations, syncope, other Respiratory: Denies: no symptoms, cough, shortness of breath, SOB with excertion, SOB at rest, sputum, wheezing, other Gastrointestinal/Abdominal: Denies: no symptoms, abdomen distended, abdominal pain, black stools, tarry stools, blood in stool, constipated, diarrhea, difficulty swallowing, nausea, poor appetite, poor fluid intake, rectal bleeding , vomiting, other Genitourinary: Denies: no symptoms, burning, discharge, frequency, flank pain, hematuria, incontinence, pain, urgency, other Neurologic/Psychiatric: Denies: no symptoms, anxiety, depressed, emotional problems, headache, numbness, paresthesia, pre-existing deficit, seizure, tingling, tremors, weakness, other Endocrine: Denies: no symptoms, excessive sweating, flushing, intolerance to cold, intolerance to heat, increased hunger, increased thirst, increased urine, unexplained weight gain, unexplained weight loss, other Allergies: Coded Allergies: No Known Allergies (Unverified , 07/03/19) Subjective 07/05: no fevers, chills or night sweats noted, on iv iron has been started, on benzo 07/07: extremely agitated overnight, climbin out of bed, on cristina taper, h/h low 07/08: remains on abx, no f/c, no bleeding is noted, no changes Objective Objective Current Medications Medications (Trade) Dose Ordered Sig/Tanja Route PRN Reason Start Time Stop Time Status Last Admin Dose Admin Azithromycin (Zithromax) 500 mg DAILY ORAL 07/07/19 16:00 07/14/19 15:59 07/08/19 09:36 Chlordiazepoxide (Librium) 25 mg TID ORAL 07/05/19 13:30 07/12/19 13:29 07/08/19 12:08 Folic Acid (Folate) 1 mg DAILY ORAL 07/04/19 10:30 08/03/19 10:29 07/08/19 09:37 Lactulose (Cephulac) 20 gm THREE TIMES A DAY ORAL 07/05/19 13:00 08/04/19 12:59 07/08/19 12:08 Lorazepam (Ativan) 2 mg Q6H PRN ORAL For Anxiety 07/05/19 00:15 07/12/19 00:14 07/08/19 07:40 Pantoprazole (Protonix) 40 mg EVERY 12 HOURS IVP 07/04/19 09:00 08/03/19 08:59 07/08/19 09:36 Piperacillin Sod/ Tazobactam Sod 3.375 gm/Sodium Chloride 110 ml @ 27.5 mls/hr Q8HR@0000,0800,1600 IVPB 07/06/19 16:00 07/13/19 15:59 07/08/19 15:18 Rifaximin (Xifaxan) 550 mg EVERY 12 HOURS ORAL 07/08/19 21:00 07/15/19 20:59 Thiamine HCl (Vitamin B1) 100 mg DAILY ORAL 07/04/19 10:30 08/03/19 10:29 07/08/19 09:36 Vancomycin HCl (Vanco rx to dose) 1 ea DAILY PRN MISC Per rx protocol 07/06/19 13:00 08/05/19 12:59 Vancomycin HCl/ Dextrose 275 ml @ 137.5 mls/ hr Q12H IVPB 07/08/19 20:00 07/13/19 19:59 Last 24 Hour Vital Signs Date Time Temp Pulse Resp B/P (MAP) Pulse Ox O2 Delivery O2 Flow Rate FiO2 07/08/19 12:00 110 07/08/19 12:00 Room Air 07/08/19 11:52 97.3 92 20 117/61 (79) 100 07/08/19 08:00 Room Air 07/08/19 08:00 110 07/08/19 08:00 97.5 102 20 138/85 (102) 100 07/08/19 04:00 97.7 100 20 134/75 (94) 97 07/08/19 04:00 Room Air 07/08/19 03:28 114 07/08/19 00:00 98.2 107 18 125/76 (92) 98 07/08/19 00:00 Room Air 07/08/19 00:00 107 07/07/19 20:00 96.0 106 20 132/92 (105) 100 07/07/19 20:00 113 07/07/19 20:00 Room Air 07/07/19 16:00 98.1 106 21 139/86 (103) 100 07/07/19 16:00 Room Air 07/07/19 16:00 104 07/07/19 12:00 103 07/07/19 12:00 97.8 98 22 129/86 (100) 98 07/07/19 12:00 Room Air 07/07/19 08:00 97.7 107 22 124/79 (94) 97 07/07/19 08:00 Room Air 07/07/19 07:40 103 07/07/19 04:00 98.6 122 22 110/69 (83) 99 07/07/19 04:00 127 07/07/19 04:00 Room Air 07/07/19 00:00 125 07/07/19 00:00 98.4 98 22 137/83 (101) 97 07/07/19 00:00 Room Air 07/06/19 20:00 133 07/06/19 20:00 98.2 123 24 131/77 (95) 96 07/06/19 20:00 Room Air 07/06/19 16:00 Room Air 07/06/19 16:00 100.3 126 26 127/63 (84) 92 07/06/19 16:00 123 Intake and Output 07/07/19 07/08/19 19:00 07:00 Intake Total 659.999 ml Balance 659.999 ml IV Total 659.999 ml # Voids 2 # Bowel Movements 1 Labs Test 07/06/19 04:50 07/06/19 05:40 07/07/19 05:15 07/07/19 13:08 Sodium Level 138 MMOL/L (136-145) 140 MMOL/L (136-145) Potassium Level 3.0 MMOL/L (3.5-5.1) 2.9 MMOL/L (3.5-5.1) Chloride Level 107 MMOL/L (98-107) 109 MMOL/L (98-107) Carbon Dioxide Level 24 MMOL/L (21-32) 26 MMOL/L (21-32) Anion Gap 7 mmol/L (5-15) 5 mmol/L (5-15) Blood Urea Nitrogen 4 mg/dL (7-18) 5 mg/dL (7-18) Creatinine 0.8 MG/DL (0.55-1.30) 0.9 MG/DL (0.55-1.30) Estimat Glomerular Filtration Rate > 60 mL/min (>60) > 60 mL/min (>60) Glucose Level 102 MG/DL (74-106) 115 MG/DL (74-106) Calcium Level 7.7 MG/DL (8.5-10.1) 7.7 MG/DL (8.5-10.1) Ionized Calcium (Measured) 1.08 mmol/L (1.10-1.35) 1.12 mmol/L (1.10-1.35) Phosphorus Level 3.5 MG/DL (2.5-4.9) 2.7 MG/DL (2.5-4.9) Magnesium Level 1.4 MG/DL (1.8-2.4) 1.7 MG/DL (1.8-2.4) Total Bilirubin 2.6 MG/DL (0.2-1.0) 2.7 MG/DL (0.2-1.0) Direct Bilirubin 1.8 MG/DL (0.0-0.3) 1.8 MG/DL (0.0-0.3) Aspartate Amino Transf (AST/SGOT) 72 U/L (15-37) 74 U/L (15-37) Alanine Aminotransferase (ALT/SGPT) 19 U/L (12-78) 17 U/L (12-78) Alkaline Phosphatase 129 U/L (46-116) 129 U/L (46-116) Total Protein 7.5 G/DL (6.4-8.2) 7.6 G/DL (6.4-8.2) Albumin 1.0 G/DL (3.4-5.0) 1.1 G/DL (3.4-5.0) Globulin 6.5 g/dL Albumin/Globulin Ratio 0.2 (1.0-2.7) White Blood Count 10.0 K/UL (4.8-10.8) 9.0 K/UL (4.8-10.8) Red Blood Count 2.75 M/UL (4.70-6.10) 2.77 M/UL (4.70-6.10) Hemoglobin 7.4 G/DL (14.2-18.0) 7.6 G/DL (14.2-18.0) Hematocrit 24.2 % (42.0-52.0) 24.3 % (42.0-52.0) Mean Corpuscular Volume 88 FL (80-99) 88 FL (80-99) Mean Corpuscular Hemoglobin 26.9 PG (27.0-31.0) 27.5 PG (27.0-31.0) Mean Corpuscular Hemoglobin Concent 30.6 G/DL (32.0-36.0) 31.3 G/DL (32.0-36.0) Red Cell Distribution Width 19.2 % (11.6-14.8) 19.4 % (11.6-14.8) Platelet Count 75 K/UL (150-450) 80 K/UL (150-450) Mean Platelet Volume 9.4 FL (6.5-10.1) 8.0 FL (6.5-10.1) Neutrophils (%) (Auto) % (45.0-75.0) % (45.0-75.0) Lymphocytes (%) (Auto) % (20.0-45.0) % (20.0-45.0) Monocytes (%) (Auto) % (1.0-10.0) % (1.0-10.0) Eosinophils (%) (Auto) % (0.0-3.0) % (0.0-3.0) Basophils (%) (Auto) % (0.0-2.0) % (0.0-2.0) Differential Total Cells Counted 100 100 Neutrophils % (Manual) 83 % (45-75) 74 % (45-75) Lymphocytes % (Manual) 2 % (20-45) 7 % (20-45) Monocytes % (Manual) 5 % (1-10) 18 % (1-10) Eosinophils % (Manual) 0 % (0-3) 1 % (0-3) Basophils % (Manual) 0 % (0-2) 0 % (0-2) Band Neutrophils 10 % (0-8) 0 % (0-8) Nucleated Red Blood Cells 2 /100 WBC Platelet Estimate Decreased Decreased Platelet Morphology Normal Normal Polychromasia 1+ 1+ Hypochromasia 2+ Anisocytosis 2+ 1+ Prothrombin Time 18.7 SEC (9.30-11.50) Prothromb Time International Ratio 1.8 (0.9-1.1) Ammonia 85 umol/L (11-32) Vancomycin Level Trough 9.9 ug/mL (5.0-12.0) Test 07/07/19 15:15 07/07/19 19:19 07/08/19 03:50 07/08/19 13:10 Urine Color Brown Urine Appearance Clear Urine pH 6.5 (4.5-8.0) Urine Specific [place] 1.010 (1.005-1.035) Urine Protein 1+ (NEGATIVE) Urine Glucose (UA) Negative (NEGATIVE) Urine Ketones 1+ (NEGATIVE) Urine Blood 4+ (NEGATIVE) Urine Nitrite Negative (NEGATIVE) Urine Bilirubin 1+ (NEGATIVE) Urine Ictotest Negative (NEGATIVE) Urine Urobilinogen 8 MG/DL (0.0-1.0) Urine Leukocyte Esterase 1+ (NEGATIVE) Urine RBC 5-10 /HPF (0 - 0) Urine WBC 2-4 /HPF (0 - 0) Urine Squamous Epithelial Cells None /LPF (NONE/OCC) Urine Bacteria Moderate /HPF (NONE) Urine Yeast Few /HPF (NONE) White Blood Count 8.0 K/UL (4.8-10.8) Red Blood Count 2.73 M/UL (4.70-6.10) Hemoglobin 7.6 G/DL (14.2-18.0) Hematocrit 24.7 % (42.0-52.0) Mean Corpuscular Volume 90 FL (80-99) Mean Corpuscular Hemoglobin 27.7 PG (27.0-31.0) Mean Corpuscular Hemoglobin Concent 30.6 G/DL (32.0-36.0) Red Cell Distribution Width 22.0 % (11.6-14.8) Platelet Count 74 K/UL (150-450) Mean Platelet Volume 7.6 FL (6.5-10.1) Neutrophils (%) (Auto) % (45.0-75.0) Lymphocytes (%) (Auto) % (20.0-45.0) Monocytes (%) (Auto) % (1.0-10.0) Eosinophils (%) (Auto) % (0.0-3.0) Basophils (%) (Auto) % (0.0-2.0) Differential Total Cells Counted 100 Neutrophils % (Manual) 61 % (45-75) Lymphocytes % (Manual) 18 % (20-45) Monocytes % (Manual) 19 % (1-10) Eosinophils % (Manual) 2 % (0-3) Basophils % (Manual) 0 % (0-2) Band Neutrophils 0 % (0-8) Platelet Estimate Decreased Platelet Morphology Normal Polychromasia 1+ Hypochromasia 2+ Anisocytosis 2+ Target Cells Occasional Sodium Level 140 MMOL/L (136-145) Potassium Level 2.9 MMOL/L (3.5-5.1) Chloride Level 110 MMOL/L (98-107) Carbon Dioxide Level 23 MMOL/L (21-32) Anion Gap 7 mmol/L (5-15) Blood Urea Nitrogen 7 mg/dL (7-18) Creatinine 0.9 MG/DL (0.55-1.30) Estimat Glomerular Filtration Rate > 60 mL/min (>60) Glucose Level 87 MG/DL (74-106) Calcium Level 7.9 MG/DL (8.5-10.1) Magnesium Level 1.7 MG/DL (1.8-2.4) Total Bilirubin 2.0 MG/DL (0.2-1.0) Direct Bilirubin 1.5 MG/DL (0.0-0.3) Aspartate Amino Transf (AST/SGOT) 58 U/L (15-37) Alanine Aminotransferase (ALT/SGPT) 15 U/L (12-78) Alkaline Phosphatase 100 U/L (46-116) Total Protein 7.3 G/DL (6.4-8.2) Albumin 1.0 G/DL (3.4-5.0) Globulin 6.3 g/dL Albumin/Globulin Ratio 0.2 (1.0-2.7) Vancomycin Level Trough 26.5 ug/mL (5.0-12.0) Test 07/08/19 14:45 Micro Microbiology Date/Time Source Procedure Growth Status 07/07/19 19:19 Straight Cath Urine Culture - Preliminary NO GROWTH Resulted Height (Feet): 5 Height (Inches): 8.00 Weight (Pounds): 180 Objective Physical Exam: Vitals: reviewed General Appearance: NAD HEENT: normocephalic, atraumatic Neck: non-tender, normal alignment Respiratory/Chest: normal breath sounds bilaterally Cardiovascular/Chest: normal peripheral pulses, normal rate Abdomen: normal bowel sounds, soft, nontender +++ ascites Avery Guo MD Jul 08, 2019 15:30
[2019-07-08 16:00] VITALS: BP 129/90
--- NOTE | 2019-07-08 17:56 | NUR ---
HAND-OFF: Report given to JOSEFINA Biggs.
--- NOTE | 2019-07-08 19:20 | NUR ---
NURSE NOTES: Received patient from Charge Nurse Dian ROCHA. Patient is asleep and receiving oxygen via room air, patient showing no signs of respiratory distress. IV site is right forearm 20g, patent and asymptomatic. Patient is on Calorie count. Bed is locked, placed in lowest position, side rails up x3, side rails padded, call light within reach, bed alarm on. Will continue to monitor.
[2019-07-08 20:00] VITALS: BP 133/79
[2019-07-08] MEDS: Vancomycin 1.5gm Premix IVPB SCH (20:27)
--- NOTE | 2019-07-08 21:59 | General Progress Note ---
Assessment/Plan Status: unchanged Assessment/Plan: Assessment/Plan: 48-year-old male with past medical history of ETOH abuse presented found down. #Encephalopathy likely multifactorial including hepatic encephalopathy ( elevated ammonia), as well as sepsis (new fever of 100.4, tachycardia) -Treat underlying conditions, and continue medications as below #Sepsis secondary to possible SBP, decompensated liver cirrhosis, -Evaluate for other sources such as bacteremia, pneumonia, C. difficile ( lactulose was ordered but patient did not receive) - cxr shows patchy LL infiltrate - f/u bcxs, UA, cdiff -cont. vancomycin and Zosyn (07/06) -Infectious disease consult, appreciate recs # Lice - primerin treatment #Liver cirrhosis secondary to EtOH - DF 31 -MELD 15 -Abdominal ultrasound reviewed -Status post paracentesis 07/05/2019 with removal of 8 L., Follow-up diagnostic results evaluate for SBP, ordered but not done??? -Albumin for BP support as needed -Supportive care - lactulose MI #Anemia, likely might multifactorial including acute blood loss anemia, anemia of chronic disease -Hematology consult, appreciate recs -Iron panel: Reviewed -Low folate: Replace -B12 within normal limits above 800 -GI consult, appreciate recs and discussed with Dr. Knight today. HOLD OFF NGT for now due to risk with possible esophageal varices. PENDING EGD per GI decision. #Substance abuse -Nodular liver in ultrasound suggestive of cirrhosis -Check hepatitis and HIV: hiv neg, hep pending -Social work Consult - Psyche consult, appreciate recs #Hypokalemia Replace, continue to monitor # Hypocalcemia - replace #Dysphagia -Etiology due to agitation, likely due underlying hepatic encephalopathy vs side effect of Ativan - #full code The time of my note may not reflect the time of my patient encounter. Subjective ROS Limited/Unobtainable: Yes Allergies: Coded Allergies: No Known Allergies (Unverified , 07/03/19) Objective Last 24 Hour Vital Signs Date Time Temp Pulse Resp B/P (MAP) Pulse Ox O2 Delivery O2 Flow Rate FiO2 07/08/19 16:00 Room Air 07/08/19 16:00 104 07/08/19 16:00 97.5 102 20 129/90 (103) 100 07/08/19 12:00 110 07/08/19 12:00 Room Air 07/08/19 11:52 97.3 92 20 117/61 (79) 100 07/08/19 08:00 Room Air 07/08/19 08:00 110 07/08/19 08:00 97.5 102 20 138/85 (102) 100 07/08/19 04:00 97.7 100 20 134/75 (94) 97 07/08/19 04:00 Room Air 07/08/19 03:28 114 07/08/19 00:00 98.2 107 18 125/76 (92) 98 07/08/19 00:00 Room Air 07/08/19 00:00 107 Intake and Output 07/07/19 07/08/19 18:59 06:59 Intake Total 659.999 ml Balance 659.999 ml IV Total 659.999 ml # Voids 2 # Bowel Movements 1 Laboratory Tests 07/08/19 03:50: White Blood Count 8.0, Red Blood Count 2.73L, Hemoglobin 7.6L, Hematocrit 24.7L , Mean Corpuscular Volume 90, Mean Corpuscular Hemoglobin 27.7, Mean Corpuscular Hemoglobin Concent 30.6L, Red Cell Distribution Width 22.0H, Platelet Count 74L, Mean Platelet Volume 7.6, Neutrophils (%) (Auto) , Lymphocytes (%) (Auto) , Monocytes (%) (Auto) , Eosinophils (%) (Auto) , Basophils (%) (Auto) , Differential Total Cells Counted 100, Neutrophils % ( Manual) 61, Lymphocytes % (Manual) 18L, Monocytes % (Manual) 19H, Eosinophils % (Manual) 2, Basophils % (Manual) 0, Band Neutrophils 0, Platelet Estimate DecreasedL, Platelet Morphology Normal, Polychromasia 1+, Hypochromasia 2+, Anisocytosis 2+, Target Cells Occasional, Sodium Level 140, Potassium Level 2.9L , Chloride Level 110H, Carbon Dioxide Level 23, Anion Gap 7, Blood Urea Nitrogen 7, Creatinine 0.9, Estimat Glomerular Filtration Rate > 60, Glucose Level 87, Calcium Level 7.9L, Magnesium Level 1.7L, Total Bilirubin 2.0H, Direct Bilirubin 1.5H, Aspartate Amino Transf (AST/SGOT) 58H, Alanine Aminotransferase (ALT/SGPT) 15, Alkaline Phosphatase 100, Total Protein 7.3, Albumin 1.0L, Globulin 6.3, Albumin/Globulin Ratio 0.2L, Prealbumin [Pending] 07/08/19 13:10: Vancomycin Level Trough 26.5H 07/08/19 14:45: Urine Legionella Antigen [Pending] Height (Feet): 5 Height (Inches): 8.00 Weight (Pounds): 180 General Appearance: moderate distress EENT: PERRL/EOMI Cardiovascular: normal rate Respiratory/Chest: lungs clear Abdomen: normal bowel sounds, hypoactive bowel sounds 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
[2019-07-09] VITALS: BP 124/87
[2019-07-09] MEDS: Piperacillin/Tazobactam 3.375 GM in NS 110 ML IVPB SCH ×4 (00:13→23:37)
[2019-07-09 04:00] VITALS: BP 130/68
[2019-07-09 04:57] LABS: HEMATOCRIT 26.1 % (42.0-52.0); HEMOGLOBIN 7.7 G/DL (14.2-18.0); MEAN CORPUSCULAR VOLUME 93 FL (80-99); PLATELET COUNT 83 K/UL (150-450); RED BLOOD COUNT 2.79 M/UL (4.70-6.10); RED CELL DISTRIBUTION WIDTH 24.8 % (11.6-14.8); WHITE BLOOD COUNT 7.1 K/UL (4.8-10.8)
[2019-07-09 05:17] LABS: ALANINE AMINOTRANSFERASE 16 U/L (12-78); ALBUMIN/GLOBULIN RATIO 0.2 (1.0-2.7); ALKALINE PHOSPHATASE 105 U/L (46-116); ANION GAP 8 mmol/L (5-15); ASPARTATE AMINO TRANSFERASE 61 U/L (15-37); BILIRUBIN,TOTAL 1.8 MG/DL (0.2-1.0); BLOOD UREA NITROGEN 6 mg/dL (7-18); CALCIUM 8.3 MG/DL (8.5-10.1); CARBON DIOXIDE 25 MMOL/L (21-32); CHLORIDE 112 MMOL/L (98-107); SODIUM 145 MMOL/L (136-145)
[2019-07-09 05:42] LABS: BILIRUBIN,DIRECT 1.2 MG/DL (0.0-0.3)
--- NOTE | 2019-07-09 07:10 | NUR ---
NURSE NOTES: RECEIVED BED SIDE REPORT FROM Alok MAC GRAIN INSPECTOR OF NOC SHIFT.PT SEEMS RESTING COMFORTABLY , EYES OPENS WITH VERBAL AND TACTILE STIMULI.PT ABLE TO FALLOWS SIMPLE COMMANDS IN [place]. FULL BODY ASSESSMENT DONE. JALEN SUPERVISOR [employer]CHLORIC AREA CAME TO SEE THE PT AND MADE AWARE AND NOTIFIED REGARDING K+ LEVEL 3.0. NO ACUTE DISTRESS NOTED AT THIS TIME. PT REMAINS FEE OF INJURIES AT THIS TIME. WILL CONT TO MONITOR.
--- NOTE | 2019-07-09 07:29 | NUR ---
HAND-OFF: Report given to Romaine ROCHA.
[2019-07-09 08:00] VITALS: BP 119/58
[2019-07-09] MEDS: Vancomycin 1.5gm Premix IVPB SCH ×2 (08:20→19:43)
--- NOTE | 2019-07-09 09:22 | NUR ---
RADIOLOGY DEPT., CHEST X-RAY DONE.-P.DYE
[2019-07-09] MEDS ORDERED: Lactulose 20gm/30ml UDC ONE (09:34)
[2019-07-09] MEDS ORDERED: Phytonadione 1 MG in D5W 55 ML IVPB SCH (10:00)
--- NOTE | 2019-07-09 10:45 | GI Progress Note ---
Assessment/Plan Problems: (1) Ascites ICD Codes: R18.8 - Other ascites SNOMED: 261561277 (2) Cirrhosis ICD Codes: K74.60 - Unspecified cirrhosis of liver SNOMED: 80954101 (3) Abdominal distension ICD Codes: R14.0 - Abdominal distension (gaseous) SNOMED: 06266043 (4) Acute alcoholic intoxication ICD Codes: F10.929 - Alcohol use, unspecified with intoxication, unspecified SNOMED: 71300660, 2054061 Qualifiers: Qualified Codes: F10.929 - Alcohol use, unspecified with intoxication, unspecified (5) Anemia ICD Codes: D64.9 - Anemia, unspecified SNOMED: 087567023 Qualifiers: Qualified Codes: D64.9 - Anemia, unspecified Status: progressing Status Narrative Discussed with Dr. Guzman. Assessment/Plan Assessment (1) Anemia (2) Acute alcoholic intoxication (3) Cirrhosis (4) Ascites (5) Encephalopathy / delirium (6) abnormal lytes Recommendations - adv diet as tolerated - calorie count - hold ativan - PPI - lactulose + xifaxan - replace lytes - EGD when more alert/stable - repeat paracentesis if needed The patient was seen and examined at bedside and all new and available data was reviewed in the patients chart. I agree with the above findings, impression and plan. (Patient seen earlier today. Signature stamp does not reflect patient encounter time.). - Robert Guzman MD Subjective Subjective limited Objective Last 24 Hour Vital Signs Date Time Temp Pulse Resp B/P (MAP) Pulse Ox O2 Delivery O2 Flow Rate FiO2 07/09/19 08:00 82 07/09/19 08:00 95.9 85 18 119/58 (78) 97 07/09/19 08:00 Room Air 07/09/19 04:00 98.1 100 18 130/68 (88) 100 07/09/19 04:00 Room Air 07/09/19 03:30 91 07/09/19 00:00 97.3 90 18 124/87 (99) 100 07/09/19 00:00 Room Air 07/08/19 23:27 93 07/08/19 20:00 97.5 100 18 133/79 (97) 100 07/08/19 20:00 Room Air 07/08/19 19:47 98 07/08/19 16:00 Room Air 07/08/19 16:00 104 07/08/19 16:00 97.5 102 20 129/90 (103) 100 07/08/19 12:00 110 07/08/19 12:00 Room Air 07/08/19 11:52 97.3 92 20 117/61 (79) 100 Intake and Output 07/08/19 07/09/19 19:00 07:00 Intake Total 110.0 ml Balance 110.0 ml IV Total 110.0 ml # Voids 2 # Bowel Movements 4 Laboratory Tests Test 07/08/19 13:10 07/08/19 14:45 07/09/19 04:20 Vancomycin Level Trough 26.5 ug/mL (5.0-12.0) H Urine Legionella Antigen Pending White Blood Count 7.1 K/UL (4.8-10.8) Red Blood Count 2.79 M/UL (4.70-6.10) L Hemoglobin 7.7 G/DL (14.2-18.0) L Hematocrit 26.1 % (42.0-52.0) L Mean Corpuscular Volume 93 FL (80-99) Mean Corpuscular Hemoglobin 27.5 PG (27.0-31.0) Mean Corpuscular Hemoglobin Concent 29.4 G/DL (32.0-36.0) L Red Cell Distribution Width 24.8 % (11.6-14.8) H Platelet Count 83 K/UL (150-450) L Mean Platelet Volume 7.1 FL (6.5-10.1) Neutrophils (%) (Auto) % (45.0-75.0) Lymphocytes (%) (Auto) % (20.0-45.0) Monocytes (%) (Auto) % (1.0-10.0) Eosinophils (%) (Auto) % (0.0-3.0) Basophils (%) (Auto) % (0.0-2.0) Differential Total Cells Counted 100 Neutrophils % (Manual) 74 % (45-75) Lymphocytes % (Manual) 7 % (20-45) L Monocytes % (Manual) 15 % (1-10) H Eosinophils % (Manual) 4 % (0-3) H Basophils % (Manual) 0 % (0-2) Band Neutrophils 0 % (0-8) Platelet Estimate Decreased L Platelet Morphology Normal Hypochromasia 1+ Anisocytosis 2+ Sodium Level 145 MMOL/L (136-145) Potassium Level 3.0 MMOL/L (3.5-5.1) L Chloride Level 112 MMOL/L (98-107) H Carbon Dioxide Level 25 MMOL/L (21-32) Anion Gap 8 mmol/L (5-15) Blood Urea Nitrogen 6 mg/dL (7-18) L Creatinine 1.0 MG/DL (0.55-1.30) Estimat Glomerular Filtration Rate > 60 mL/min (>60) Glucose Level 123 MG/DL (74-106) H Calcium Level 8.3 MG/DL (8.5-10.1) L Magnesium Level 1.6 MG/DL (1.8-2.4) L Total Bilirubin 1.8 MG/DL (0.2-1.0) H Direct Bilirubin 1.2 MG/DL (0.0-0.3) H Aspartate Amino Transf (AST/SGOT) 61 U/L (15-37) H Alanine Aminotransferase (ALT/SGPT) 16 U/L (12-78) Alkaline Phosphatase 105 U/L (46-116) Ammonia 46 umol/L (11-32) H Total Protein 7.2 G/DL (6.4-8.2) Albumin 1.0 G/DL (3.4-5.0) L Globulin 6.2 g/dL Albumin/Globulin Ratio 0.2 (1.0-2.7) L Height (Feet): 5 Height (Inches): 8.00 Weight (Pounds): 180 General Appearance: no apparent distress, confused Cardiovascular: normal rate Respiratory/Chest: normal breath sounds, no respiratory distress Abdominal Exam: normal bowel sounds, non tender, soft Extremities: non-tender Maryam Castellanos NP Jul 09, 2019 10:45
--- NOTE | 2019-07-09 10:45 | Diagnostic Imaging Report ---
Indication: Cough Technique: One view of the chest Comparison: 07/06/2019 Findings: Bilateral interstitial disease has developed in the interim. There may be some patchy retrocardiac consolidation as well which is unchanged. The left costophrenic angle remains blunted. The heart is borderline enlarged Impression: Development of bilateral interstitial infiltrates versus edema, over 3 days. Persistent patchy retrocardiac consolidation and possible small left pleural effusion
[2019-07-09] MEDS ORDERED: Sodium Chloride for KCL Premix X 3hrs IV SCH (11:00)
--- NOTE | 2019-07-09 11:13 | NUR ---
CASE MANAGEMENT: REVIEW 07/09/2019 SI:ETHANOL INTOXICATION. ANEMIA. ABD DISTENTION. T 95.9 HR 85 RR 18 B/P 119/58 SATS 97% ON RA HG 7.7 HCT 26.1 K 3 CL 112 BUN 6 GLU 123 CA 8.3 MG 1.6 TBILI 1.8 DBILI 1.2 AST 61 AMMONIA 46 IS: IVF @ 50 mL/HR PROTONIX IV Q12H FOLATE PO QD THIAMINE PO QD VANCO IV Q8H AZITHROMYCIN PO QD LACTULOSE BID IRRIGATION SDU DCP: PATIENT TO BE DISCHARGED TO APPROPRIATE LOCATION ONCE MEDICALLY CLEARED.
--- NOTE | 2019-07-09 11:47 | Infectious Diseases Prog Note ---
Assessment/Plan Assessment/Plan A) 1) mrsa bacteremia, pna, sepsis, fevers 2) cirrhosis 3) anemia 4) allergies - nkda 5) hx substance abuse 6) d/w RN P) 1) vancomycin and zosyn 2) check labs, surveillance blood cultures, chest-x-ray, monitor labs 3) s/p tx for head lice 4) will f/u Subjective Constitutional: Denies: fever HEENT: Denies: congestion Respiratory: Denies: shortness of breath Cardiovascular: Denies: chest pain Gastrointestinal/Abdominal: Denies: nausea, vomiting, diarrhea Genitourinary: Denies: dysuria Psychiatric: Denies: depression Skin: Denies: rash Hematologic: Denies: bleeding Musculoskeletal: Denies: pain Allergies: Coded Allergies: No Known Allergies (Unverified , 07/03/19) Objective Vital Signs Last 24 Hour Vital Signs Date Time Temp Pulse Resp B/P (MAP) Pulse Ox O2 Delivery O2 Flow Rate FiO2 07/09/19 08:00 82 07/09/19 08:00 95.9 85 18 119/58 (78) 97 07/09/19 08:00 Room Air 07/09/19 04:00 98.1 100 18 130/68 (88) 100 07/09/19 04:00 Room Air 07/09/19 03:30 91 07/09/19 00:00 97.3 90 18 124/87 (99) 100 07/09/19 00:00 Room Air 07/08/19 23:27 93 07/08/19 20:00 97.5 100 18 133/79 (97) 100 07/08/19 20:00 Room Air 07/08/19 19:47 98 07/08/19 16:00 Room Air 07/08/19 16:00 104 07/08/19 16:00 97.5 102 20 129/90 (103) 100 07/08/19 12:00 110 07/08/19 12:00 Room Air 07/08/19 11:52 97.3 92 20 117/61 (79) 100 Height (Feet): 5 Height (Inches): 8.00 Weight (Pounds): 180 General Appearance: no acute distress HEENT: normocephalic, atraumatic, anicteric Respiratory/Chest: lungs clear, no accessory muscle use, crackles/rales, rhonchi - bilaterally Cardiovascular: normal rate, regular rhythm, no gallop/murmur, no JVD Abdomen: normal bowel sounds, soft, non tender, no organomegaly, non distended Genitourinary: other - no mariano Extremities: no cyanosis Skin: no rash 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 There may be some patchy retrocardiac consolidation as well which is unchanged. The left costophrenic angle remains blunted. The heart is borderline enlarged Impression: Development of bilateral interstitial infiltrates versus edema, over 3 days. Persistent patchy retrocardiac consolidation and possible small left pleural effusion Microbiology Date/Time Source Procedure Growth Status 07/07/19 15:15 Blood Blood Culture - Preliminary Gram Positive Cocci Resulted 07/06/19 13:45 Blood Blood Culture - Final Staphylococcus Aureus Complete 07/07/19 19:19 Straight Cath Urine Culture - Preliminary NO GROWTH AFTER 24 HOURS Resulted Laboratory Tests Test 07/08/19 13:10 07/08/19 14:45 07/09/19 04:20 Vancomycin Level Trough 26.5 ug/mL (5.0-12.0) H Urine Legionella Antigen Pending White Blood Count 7.1 K/UL (4.8-10.8) Red Blood Count 2.79 M/UL (4.70-6.10) L Hemoglobin 7.7 G/DL (14.2-18.0) L Hematocrit 26.1 % (42.0-52.0) L Mean Corpuscular Volume 93 FL (80-99) Mean Corpuscular Hemoglobin 27.5 PG (27.0-31.0) Mean Corpuscular Hemoglobin Concent 29.4 G/DL (32.0-36.0) L Red Cell Distribution Width 24.8 % (11.6-14.8) H Platelet Count 83 K/UL (150-450) L Mean Platelet Volume 7.1 FL (6.5-10.1) Neutrophils (%) (Auto) % (45.0-75.0) Lymphocytes (%) (Auto) % (20.0-45.0) Monocytes (%) (Auto) % (1.0-10.0) Eosinophils (%) (Auto) % (0.0-3.0) Basophils (%) (Auto) % (0.0-2.0) Differential Total Cells Counted 100 Neutrophils % (Manual) 74 % (45-75) Lymphocytes % (Manual) 7 % (20-45) L Monocytes % (Manual) 15 % (1-10) H Eosinophils % (Manual) 4 % (0-3) H Basophils % (Manual) 0 % (0-2) Band Neutrophils 0 % (0-8) Platelet Estimate Decreased L Platelet Morphology Normal Hypochromasia 1+ Anisocytosis 2+ Sodium Level 145 MMOL/L (136-145) Potassium Level 3.0 MMOL/L (3.5-5.1) L Chloride Level 112 MMOL/L (98-107) H Carbon Dioxide Level 25 MMOL/L (21-32) Anion Gap 8 mmol/L (5-15) Blood Urea Nitrogen 6 mg/dL (7-18) L Creatinine 1.0 MG/DL (0.55-1.30) Estimat Glomerular Filtration Rate > 60 mL/min (>60) Glucose Level 123 MG/DL (74-106) H Calcium Level 8.3 MG/DL (8.5-10.1) L Magnesium Level 1.6 MG/DL (1.8-2.4) L Total Bilirubin 1.8 MG/DL (0.2-1.0) H Direct Bilirubin 1.2 MG/DL (0.0-0.3) H Aspartate Amino Transf (AST/SGOT) 61 U/L (15-37) H Alanine Aminotransferase (ALT/SGPT) 16 U/L (12-78) Alkaline Phosphatase 105 U/L (46-116) Ammonia 46 umol/L (11-32) H Total Protein 7.2 G/DL (6.4-8.2) Albumin 1.0 G/DL (3.4-5.0) L Globulin 6.2 g/dL Albumin/Globulin Ratio 0.2 (1.0-2.7) L Current Medications Medications (Trade) Dose Ordered Sig/Tanja Route PRN Reason Start Time Stop Time Status Last Admin Dose Admin Azithromycin (Zithromax) 500 mg DAILY ORAL 07/07/19 16:00 07/14/19 15:59 07/08/19 09:36 Chlordiazepoxide (Librium) 25 mg TID ORAL 07/05/19 13:30 07/12/19 13:29 07/08/19 17:27 Folic Acid (Folate) 1 mg DAILY ORAL 07/04/19 10:30 08/03/19 10:29 07/08/19 09:37 Lactulose (Cephulac) 20 gm THREE TIMES A DAY ORAL 07/05/19 13:00 08/04/19 12:59 07/08/19 17:27 Lorazepam (Ativan) 2 mg Q6H PRN ORAL For Anxiety 07/05/19 00:15 07/12/19 00:14 07/08/19 23:07 Magnesium Sulfate 100 ml @ 100 mls/hr Q1H IVPB 07/09/19 10:15 07/09/19 13:14 Pantoprazole (Protonix) 40 mg EVERY 12 HOURS IVP 07/04/19 09:00 08/03/19 08:59 07/08/19 21:51 Phytonadione 1 mg/ Dextrose 55.5 ml @ 222 mls/hr ONCE IVPB 07/09/19 10:00 07/09/19 12:00 Piperacillin Sod/ Tazobactam Sod 3.375 gm/Sodium Chloride 110 ml @ 27.5 mls/hr Q8HR@0000,0800,1600 IVPB 07/06/19 16:00 07/13/19 15:59 07/09/19 08:30 Potassium Chloride 100 ml @ 100 mls/hr Q1HR IVPB 07/09/19 11:00 07/09/19 13:59 Rifaximin (Xifaxan) 550 mg EVERY 12 HOURS ORAL 07/08/19 21:00 07/15/19 20:59 07/08/19 21:51 Sodium Chloride 300 ml @ 100 mls/hr Q3H IV 07/09/19 11:00 07/09/19 13:59 Thiamine HCl (Vitamin B1) 100 mg DAILY ORAL 07/04/19 10:30 08/03/19 10:29 07/08/19 09:36 Vancomycin HCl (Vanco rx to dose) 1 ea DAILY PRN MISC Per rx protocol 07/06/19 13:00 08/05/19 12:59 Vancomycin HCl/ Dextrose 275 ml @ 137.5 mls/ hr Q12H IVPB 07/08/19 20:00 07/13/19 19:59 07/09/19 08:20 Dionan Tee MD Jul 09, 2019 11:47
[2019-07-09 12:00] VITALS: BP 113/63
[2019-07-09] MEDS: Pantoprazole Inj IVP SCH ×2 (12:57→20:30)
[2019-07-09] MEDS: chlordiazePOXIDE 25mg Cap ORAL SCH ×3 (12:58→18:35)
[2019-07-09] MEDS: Azithromycin 250mg tab ORAL SCH (12:58)
[2019-07-09] MEDS: Thiamine 100mg tab ORAL SCH (12:58)
[2019-07-09] MEDS: Lactulose 20gm/30ml UDC ORAL SCH ×3 (13:01→18:34)
--- NOTE | 2019-07-09 13:01 | General Progress Note ---
Assessment/Plan Status: stable, progressing Assessment/Plan: Assessment/Plan: 48-year-old male with past medical history of ETOH abuse presented found down. #Encephalopathy likely multifactorial including hepatic encephalopathy ( elevated ammonia), as well as sepsis (new fever of 100.4, tachycardia) with bacteremia due to MSSA. #Sepsis secondary to possible SBP, decompensated liver cirrhosis, bacteremia due to MSSA - cxr shows patchy LL infiltrate -cont. vancomycin and Zosyn (07/06) -Infectious disease consult, appreciate recs and discussed today - REPEAT BCx pending # Lice - primerin treatment - Ordered to clip hair as persistent lice noted despite 2 shampoo treatment #Liver cirrhosis secondary to EtOH - DF 31 -MELD 15 -Abdominal ultrasound reviewed -Status post paracentesis 07/05/2019 with removal of 8 L., Follow-up diagnostic results evaluate for SBP, ordered but not done! 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 PENDING EGD per GI decision. #Substance abuse -Nodular liver in ultrasound suggestive of cirrhosis -Check hepatitis and HIV: hiv neg, hep pending -Social work Consult - Psyche consult, appreciate recs #Hypokalemia Replace, continue to monitor # Hypocalcemia - replace as needed #Dysphagia -Etiology due to agitation, likely due underlying hepatic encephalopathy vs side effect of Ativan #full code The time of my note may not reflect the time of my patient encounter. Subjective Date patient seen: Jul 09, 2019 Time patient seen: 13:00 ROS Limited/Unobtainable: Yes Allergies: Coded Allergies: No Known Allergies (Unverified , 07/03/19) Objective Last 24 Hour Vital Signs Date Time Temp Pulse Resp B/P (MAP) Pulse Ox O2 Delivery O2 Flow Rate FiO2 07/09/19 08:00 82 07/09/19 08:00 95.9 85 18 119/58 (78) 97 07/09/19 08:00 Room Air 07/09/19 04:00 98.1 100 18 130/68 (88) 100 07/09/19 04:00 Room Air 07/09/19 03:30 91 07/09/19 00:00 97.3 90 18 124/87 (99) 100 07/09/19 00:00 Room Air 07/08/19 23:27 93 07/08/19 20:00 97.5 100 18 133/79 (97) 100 07/08/19 20:00 Room Air 07/08/19 19:47 98 07/08/19 16:00 Room Air 07/08/19 16:00 104 07/08/19 16:00 97.5 102 20 129/90 (103) 100 Intake and Output 07/08/19 07/09/19 19:00 07:00 Intake Total 110.0 ml Balance 110.0 ml IV Total 110.0 ml # Voids 2 # Bowel Movements 4 Laboratory Tests 07/08/19 13:10: Vancomycin Level Trough 26.5H 07/08/19 14:45: Urine Legionella Antigen [Pending] 07/09/19 04:20: White Blood Count 7.1, Red Blood Count 2.79L, Hemoglobin 7.7L, Hematocrit 26.1L , Mean Corpuscular Volume 93, Mean Corpuscular Hemoglobin 27.5, Mean Corpuscular Hemoglobin Concent 29.4L, Red Cell Distribution Width 24.8H, Platelet Count 83L, Mean Platelet Volume 7.1, Neutrophils (%) (Auto) , Lymphocytes (%) (Auto) , Monocytes (%) (Auto) , Eosinophils (%) (Auto) , Basophils (%) (Auto) , Differential Total Cells Counted 100, Neutrophils % ( Manual) 74, Lymphocytes % (Manual) 7L, Monocytes % (Manual) 15H, Eosinophils % ( Manual) 4H, Basophils % (Manual) 0, Band Neutrophils 0, Platelet Estimate DecreasedL, Platelet Morphology Normal, Hypochromasia 1+, Anisocytosis 2+, Sodium Level 145, Potassium Level 3.0L, Chloride Level 112H, Carbon Dioxide Level 25, Anion Gap 8, Blood Urea Nitrogen 6L, Creatinine 1.0, Estimat Glomerular Filtration Rate > 60, Glucose Level 123H, Calcium Level 8.3L, Magnesium Level 1.6L, Total Bilirubin 1.8H, Direct Bilirubin 1.2H, Aspartate Amino Transf (AST/SGOT) 61H, Alanine Aminotransferase (ALT/SGPT) 16, Alkaline Phosphatase 105, Ammonia 46H, Total Protein 7.2, Albumin 1.0L, Globulin 6.2, Albumin/Globulin Ratio 0.2L Height (Feet): 5 Height (Inches): 8.00 Weight (Pounds): 180 General Appearance: moderate distress EENT: PERRL/EOMI Cardiovascular: normal rate Respiratory/Chest: lungs clear Abdomen: non tender Edema: trace edema Neurologic: other - somnolent Megan Thapa MD Jul 09, 2019 13:01
--- NOTE | 2019-07-09 13:09 | Surgery Progress Note ---
Surgery Progress Note Subjective Additional Comments ammonia improved lft's improved electrolytes being replaced exam stable. Objective Last 24 Hour Vital Signs Date Time Temp Pulse Resp B/P (MAP) Pulse Ox O2 Delivery O2 Flow Rate FiO2 07/09/19 13:05 100 07/09/19 08:00 82 07/09/19 08:00 95.9 85 18 119/58 (78) 97 07/09/19 08:00 Room Air 07/09/19 04:00 98.1 100 18 130/68 (88) 100 07/09/19 04:00 Room Air 07/09/19 03:30 91 07/09/19 00:00 97.3 90 18 124/87 (99) 100 07/09/19 00:00 Room Air 07/08/19 23:27 93 07/08/19 20:00 97.5 100 18 133/79 (97) 100 07/08/19 20:00 Room Air 07/08/19 19:47 98 07/08/19 16:00 Room Air 07/08/19 16:00 104 07/08/19 16:00 97.5 102 20 129/90 (103) 100 I&O Intake and Output 07/08/19 07/09/19 19:00 07:00 Intake Total 110.0 ml Balance 110.0 ml IV Total 110.0 ml # Voids 2 # Bowel Movements 4 Cardiovascular: RSR Respiratory: clear Abdomen: soft, distended, non-tender, decreased bowel sounds Extremities: no tenderness, no cyanosis Laboratory Tests Test 07/08/19 13:10 07/08/19 14:45 07/09/19 04:20 Vancomycin Level Trough 26.5 ug/mL (5.0-12.0) H Urine Legionella Antigen Pending White Blood Count 7.1 K/UL (4.8-10.8) Red Blood Count 2.79 M/UL (4.70-6.10) L Hemoglobin 7.7 G/DL (14.2-18.0) L Hematocrit 26.1 % (42.0-52.0) L Mean Corpuscular Volume 93 FL (80-99) Mean Corpuscular Hemoglobin 27.5 PG (27.0-31.0) Mean Corpuscular Hemoglobin Concent 29.4 G/DL (32.0-36.0) L Red Cell Distribution Width 24.8 % (11.6-14.8) H Platelet Count 83 K/UL (150-450) L Mean Platelet Volume 7.1 FL (6.5-10.1) Neutrophils (%) (Auto) % (45.0-75.0) Lymphocytes (%) (Auto) % (20.0-45.0) Monocytes (%) (Auto) % (1.0-10.0) Eosinophils (%) (Auto) % (0.0-3.0) Basophils (%) (Auto) % (0.0-2.0) Differential Total Cells Counted 100 Neutrophils % (Manual) 74 % (45-75) Lymphocytes % (Manual) 7 % (20-45) L Monocytes % (Manual) 15 % (1-10) H Eosinophils % (Manual) 4 % (0-3) H Basophils % (Manual) 0 % (0-2) Band Neutrophils 0 % (0-8) Platelet Estimate Decreased L Platelet Morphology Normal Hypochromasia 1+ Anisocytosis 2+ Sodium Level 145 MMOL/L (136-145) Potassium Level 3.0 MMOL/L (3.5-5.1) L Chloride Level 112 MMOL/L (98-107) H Carbon Dioxide Level 25 MMOL/L (21-32) Anion Gap 8 mmol/L (5-15) Blood Urea Nitrogen 6 mg/dL (7-18) L Creatinine 1.0 MG/DL (0.55-1.30) Estimat Glomerular Filtration Rate > 60 mL/min (>60) Glucose Level 123 MG/DL (74-106) H Calcium Level 8.3 MG/DL (8.5-10.1) L Magnesium Level 1.6 MG/DL (1.8-2.4) L Total Bilirubin 1.8 MG/DL (0.2-1.0) H Direct Bilirubin 1.2 MG/DL (0.0-0.3) H Aspartate Amino Transf (AST/SGOT) 61 U/L (15-37) H Alanine Aminotransferase (ALT/SGPT) 16 U/L (12-78) Alkaline Phosphatase 105 U/L (46-116) Ammonia 46 umol/L (11-32) H Total Protein 7.2 G/DL (6.4-8.2) Albumin 1.0 G/DL (3.4-5.0) L Globulin 6.2 g/dL Albumin/Globulin Ratio 0.2 (1.0-2.7) L Plan Problems: (1) Abdominal distension Assessment & Plan: Abdominal distention from ascites as he has significant liver dysfunction para with 8L fluid without malignant cells micro with bacteremia Findings: There is ascites fluid present. Gallbladder is unremarkable, without stones, wall thickening, nor pericholecystic fluid. Sonographic Washington's sign is negative. Common bile duct measures 3 mm in diameter. No intrahepatic biliary ductal dilatation. Liver demonstrates slightly increased echogenicity. No focal abnormality. It demonstrates surface nodularity. Portal vein and hepatic veins are patent. Pancreas is obscured by bowel gas. Spleen is unremarkable. Left kidney measures 11.4 cm in length. Right kidney measures 11.1 cm length. Both kidneys demonstrate normal echogenicity. There is no hydronephrosis. No focal abnormality . Abdominal aorta is partially obscured by bowel gas, visualized portions are non-aneurysmal . Impression: Hepatic surface nodularity, suggestive of cirrhosis. Ascites Negative for gallstones or dilated bile ducts (2) Facial trauma Assessment & Plan: Findings: No acute intracranial hemorrhage or edema. No mass effect or midline shift. Normal hardy-white differentiation. Slightly prominent for age ventricles and extra axial CSF spaces. Mild periventricular deep white matter low-attenuation consistent with chronic microvascular ischemic changes noted Questionable minimal left supraorbital scalp contusion. Intact calvarium. Visualized orbits and sinuses are unremarkable. The mastoids are clear. unknown if fall or assault lip with dry blood and in medial aspect small oozing - resolved apply dressing prn thank you Alvin James Jul 09, 2019 13:09
--- NOTE | 2019-07-09 13:10 | NUR ---
ST NOTES: SWALLOW STATUS: PATIENT NOT ALERT FOR PO TRIALS (STILL NEEDS ATIVAN TO KEEP FROM CLIMBING OUT OF BED). PATIENT HAS MIN INTAKE 10% OR LESS. PER MARITZA VALLADARES, PATIENT IS COUGHING/ASPIRATING ON EVEN NECTAR THICK LIQUIDS TSP ONLY. PATIENT HAS ORAL SPILLAGE AND POOR LIP CLOSURE EVEN THOUGH HE IS ALERT. D/W RN, DR SALAZAR, AND DR LEI REGARDING NEED FOR NONORAL FEEDINGS. PLAN: CONSIDER NONORAL FEEDINGS SINCE MIN INTAKE AND CONSISTENT S/S OF ASPIRATION EVEN ON TSP LEVEL NECTAR THICK LIQUIDS.
--- NOTE | 2019-07-09 14:56 | Hematology/Onc Progress Note ---
Assessment/Plan Assessment/Plan ASSESSMENT AND RECS # Anemia of iron deficiency in addition to suppression from etoh abuse and cirrhosis of liver --> Anemia workup has been ordered, rule out gi bleed --> aid noted --> No evidence of hemolysis is noted, peripheral smear has been reviewed. --> Hgb goal >7. Transfuse prn. --> Hgb trend: 4.2-->7.1-->7.6 --> 7.6-->7.7 --> IRON IV 200mg stat ordered x 1dose --> Medications have been reviewed --> low threshold for gi evaluation in case has occult + --> bone marrow biopsy is not indicated given the other more likely causes # Thrombocytopenia - secondary to liver cirrhosis --> Hep panel and HIV ordered - both negative --> US abd to evaluate for cirrhosis and hsm ordered - Hepatic surface nodularity, suggestive of cirrhosis. Ascites --> Peripheral smear ordered to evaluate for blasts /schistocytes and none significant noted --> abx and other meds have been reviewed --> ok for ppx if plt >50k w/ either heparin or lovenox --> Transfuse if Plt < 20k and fever, or if Plt < 10k without fever # Coagulopathy due to liver cirrhosis secondary to Etoh --> GI is following, appreciate rcs --> Abdominal ultrasound reviewed --> Supportive care --> lactulose prophylactic # Substance abuse --> psych eval # Hypokalemia --> Replace, continue to monitor # Hypocalcemia --> replete Ca++ prn # Cirrhosis of the liver The timing of this note does not necessarily reflect the time of the patient was seen. GREATLY APPRECIATE CONSULTATION. Subjective Allergies: Coded Allergies: No Known Allergies (Unverified , 07/03/19) Subjective 07/05: no fevers, chills or night sweats noted, on iv iron has been started, on benzo 07/07: extremely agitated overnight, climbin out of bed, on cristina taper, h/h low 07/08: remains on abx, no f/c, no bleeding is noted, no changes 07/09: paracentesis negative for malignant cells, cxr and labs reviewed Objective Objective Current Medications Medications (Trade) Dose Ordered Sig/Tanja Route PRN Reason Start Time Stop Time Status Last Admin Dose Admin Azithromycin (Zithromax) 500 mg DAILY ORAL 07/07/19 16:00 07/14/19 15:59 07/09/19 12:58 Chlordiazepoxide (Librium) 25 mg TID ORAL 07/05/19 13:30 07/12/19 13:29 07/09/19 13:03 Folic Acid (Folate) 1 mg DAILY ORAL 07/04/19 10:30 08/03/19 10:29 07/09/19 12:58 Lactulose (Cephulac) 20 gm THREE TIMES A DAY ORAL 07/05/19 13:00 08/04/19 12:59 07/09/19 13:02 Lorazepam (Ativan) 2 mg Q6H PRN ORAL For Anxiety 07/05/19 00:15 07/12/19 00:14 07/08/19 23:07 Pantoprazole (Protonix) 40 mg EVERY 12 HOURS IVP 07/04/19 09:00 08/03/19 08:59 07/09/19 12:57 Piperacillin Sod/ Tazobactam Sod 3.375 gm/Sodium Chloride 110 ml @ 27.5 mls/hr Q8HR@0000,0800,1600 IVPB 07/06/19 16:00 07/13/19 15:59 07/09/19 08:30 Rifaximin (Xifaxan) 550 mg EVERY 12 HOURS ORAL 07/08/19 21:00 07/15/19 20:59 07/09/19 12:59 Thiamine HCl (Vitamin B1) 100 mg DAILY ORAL 07/04/19 10:30 08/03/19 10:29 07/09/19 12:58 Vancomycin HCl (Vanco rx to dose) 1 ea DAILY PRN MISC Per rx protocol 07/06/19 13:00 08/05/19 12:59 Vancomycin HCl/ Dextrose 275 ml @ 137.5 mls/ hr Q12H IVPB 07/08/19 20:00 07/13/19 19:59 07/09/19 08:20 Last 24 Hour Vital Signs Date Time Temp Pulse Resp B/P (MAP) Pulse Ox O2 Delivery O2 Flow Rate FiO2 07/09/19 13:05 100 07/09/19 08:00 82 07/09/19 08:00 95.9 85 18 119/58 (78) 97 07/09/19 08:00 Room Air 07/09/19 04:00 98.1 100 18 130/68 (88) 100 07/09/19 04:00 Room Air 07/09/19 03:30 91 07/09/19 00:00 97.3 90 18 124/87 (99) 100 07/09/19 00:00 Room Air 07/08/19 23:27 93 07/08/19 20:00 97.5 100 18 133/79 (97) 100 07/08/19 20:00 Room Air 07/08/19 19:47 98 07/08/19 16:00 Room Air 07/08/19 16:00 104 07/08/19 16:00 97.5 102 20 129/90 (103) 100 07/08/19 12:00 110 07/08/19 12:00 Room Air 07/08/19 11:52 97.3 92 20 117/61 (79) 100 07/08/19 08:00 Room Air 07/08/19 08:00 110 07/08/19 08:00 97.5 102 20 138/85 (102) 100 07/08/19 04:00 97.7 100 20 134/75 (94) 97 07/08/19 04:00 Room Air 07/08/19 03:28 114 07/08/19 00:00 98.2 107 18 125/76 (92) 98 07/08/19 00:00 Room Air 07/08/19 00:00 107 07/07/19 20:00 96.0 106 20 132/92 (105) 100 07/07/19 20:00 113 07/07/19 20:00 Room Air 07/07/19 16:00 98.1 106 21 139/86 (103) 100 07/07/19 16:00 Room Air 07/07/19 16:00 104 Intake and Output 07/08/19 07/09/19 19:00 07:00 Intake Total 110.0 ml Balance 110.0 ml IV Total 110.0 ml # Voids 2 # Bowel Movements 4 Labs Test 07/07/19 05:15 07/07/19 13:08 07/07/19 15:15 07/07/19 19:19 White Blood Count 9.0 K/UL (4.8-10.8) Red Blood Count 2.77 M/UL (4.70-6.10) Hemoglobin 7.6 G/DL (14.2-18.0) Hematocrit 24.3 % (42.0-52.0) Mean Corpuscular Volume 88 FL (80-99) Mean Corpuscular Hemoglobin 27.5 PG (27.0-31.0) Mean Corpuscular Hemoglobin Concent 31.3 G/DL (32.0-36.0) Red Cell Distribution Width 19.4 % (11.6-14.8) Platelet Count 80 K/UL (150-450) Mean Platelet Volume 8.0 FL (6.5-10.1) Neutrophils (%) (Auto) % (45.0-75.0) Lymphocytes (%) (Auto) % (20.0-45.0) Monocytes (%) (Auto) % (1.0-10.0) Eosinophils (%) (Auto) % (0.0-3.0) Basophils (%) (Auto) % (0.0-2.0) Differential Total Cells Counted 100 Neutrophils % (Manual) 74 % (45-75) Lymphocytes % (Manual) 7 % (20-45) Monocytes % (Manual) 18 % (1-10) Eosinophils % (Manual) 1 % (0-3) Basophils % (Manual) 0 % (0-2) Band Neutrophils 0 % (0-8) Platelet Estimate Decreased Platelet Morphology Normal Polychromasia 1+ Anisocytosis 1+ Sodium Level 140 MMOL/L (136-145) Potassium Level 2.9 MMOL/L (3.5-5.1) Chloride Level 109 MMOL/L (98-107) Carbon Dioxide Level 26 MMOL/L (21-32) Anion Gap 5 mmol/L (5-15) Blood Urea Nitrogen 5 mg/dL (7-18) Creatinine 0.9 MG/DL (0.55-1.30) Estimat Glomerular Filtration Rate > 60 mL/min (>60) Glucose Level 115 MG/DL (74-106) Calcium Level 7.7 MG/DL (8.5-10.1) Ionized Calcium (Measured) 1.12 mmol/L (1.10-1.35) Phosphorus Level 2.7 MG/DL (2.5-4.9) Magnesium Level 1.7 MG/DL (1.8-2.4) Vancomycin Level Trough 9.9 ug/mL (5.0-12.0) Urine Color Brown Urine Appearance Clear Urine pH 6.5 (4.5-8.0) Urine Specific [place] 1.010 (1.005-1.035) Urine Protein 1+ (NEGATIVE) Urine Glucose (UA) Negative (NEGATIVE) Urine Ketones 1+ (NEGATIVE) Urine Blood 4+ (NEGATIVE) Urine Nitrite Negative (NEGATIVE) Urine Bilirubin 1+ (NEGATIVE) Urine Ictotest Negative (NEGATIVE) Urine Urobilinogen 8 MG/DL (0.0-1.0) Urine Leukocyte Esterase 1+ (NEGATIVE) Urine RBC 5-10 /HPF (0 - 0) Urine WBC 2-4 /HPF (0 - 0) Urine Squamous Epithelial Cells None /LPF (NONE/OCC) Urine Bacteria Moderate /HPF (NONE) Urine Yeast Few /HPF (NONE) Test 07/08/19 03:50 07/08/19 13:10 07/08/19 14:45 07/09/19 04:20 White Blood Count 8.0 K/UL (4.8-10.8) 7.1 K/UL (4.8-10.8) Red Blood Count 2.73 M/UL (4.70-6.10) 2.79 M/UL (4.70-6.10) Hemoglobin 7.6 G/DL (14.2-18.0) 7.7 G/DL (14.2-18.0) Hematocrit 24.7 % (42.0-52.0) 26.1 % (42.0-52.0) Mean Corpuscular Volume 90 FL (80-99) 93 FL (80-99) Mean Corpuscular Hemoglobin 27.7 PG (27.0-31.0) 27.5 PG (27.0-31.0) Mean Corpuscular Hemoglobin Concent 30.6 G/DL (32.0-36.0) 29.4 G/DL (32.0-36.0) Red Cell Distribution Width 22.0 % (11.6-14.8) 24.8 % (11.6-14.8) Platelet Count 74 K/UL (150-450) 83 K/UL (150-450) Mean Platelet Volume 7.6 FL (6.5-10.1) 7.1 FL (6.5-10.1) Neutrophils (%) (Auto) % (45.0-75.0) % (45.0-75.0) Lymphocytes (%) (Auto) % (20.0-45.0) % (20.0-45.0) Monocytes (%) (Auto) % (1.0-10.0) % (1.0-10.0) Eosinophils (%) (Auto) % (0.0-3.0) % (0.0-3.0) Basophils (%) (Auto) % (0.0-2.0) % (0.0-2.0) Differential Total Cells Counted 100 100 Neutrophils % (Manual) 61 % (45-75) 74 % (45-75) Lymphocytes % (Manual) 18 % (20-45) 7 % (20-45) Monocytes % (Manual) 19 % (1-10) 15 % (1-10) Eosinophils % (Manual) 2 % (0-3) 4 % (0-3) Basophils % (Manual) 0 % (0-2) 0 % (0-2) Band Neutrophils 0 % (0-8) 0 % (0-8) Platelet Estimate Decreased Decreased Platelet Morphology Normal Normal Polychromasia 1+ Hypochromasia 2+ 1+ Anisocytosis 2+ 2+ Target Cells Occasional Sodium Level 140 MMOL/L (136-145) 145 MMOL/L (136-145) Potassium Level 2.9 MMOL/L (3.5-5.1) 3.0 MMOL/L (3.5-5.1) Chloride Level 110 MMOL/L (98-107) 112 MMOL/L (98-107) Carbon Dioxide Level 23 MMOL/L (21-32) 25 MMOL/L (21-32) Anion Gap 7 mmol/L (5-15) 8 mmol/L (5-15) Blood Urea Nitrogen 7 mg/dL (7-18) 6 mg/dL (7-18) Creatinine 0.9 MG/DL (0.55-1.30) 1.0 MG/DL (0.55-1.30) Estimat Glomerular Filtration Rate > 60 mL/min (>60) > 60 mL/min (>60) Glucose Level 87 MG/DL (74-106) 123 MG/DL (74-106) Calcium Level 7.9 MG/DL (8.5-10.1) 8.3 MG/DL (8.5-10.1) Magnesium Level 1.7 MG/DL (1.8-2.4) 1.6 MG/DL (1.8-2.4) Total Bilirubin 2.0 MG/DL (0.2-1.0) 1.8 MG/DL (0.2-1.0) Direct Bilirubin 1.5 MG/DL (0.0-0.3) 1.2 MG/DL (0.0-0.3) Aspartate Amino Transf (AST/SGOT) 58 U/L (15-37) 61 U/L (15-37) Alanine Aminotransferase (ALT/SGPT) 15 U/L (12-78) 16 U/L (12-78) Alkaline Phosphatase 100 U/L (46-116) 105 U/L (46-116) Total Protein 7.3 G/DL (6.4-8.2) 7.2 G/DL (6.4-8.2) Albumin 1.0 G/DL (3.4-5.0) 1.0 G/DL (3.4-5.0) Globulin 6.3 g/dL 6.2 g/dL Albumin/Globulin Ratio 0.2 (1.0-2.7) 0.2 (1.0-2.7) Vancomycin Level Trough 26.5 ug/mL (5.0-12.0) Ammonia 46 umol/L (11-32) Height (Feet): 5 Height (Inches): 8.00 Weight (Pounds): 180 Objective Physical Exam: Vitals: reviewed General Appearance: NAD HEENT: normocephalic, atraumatic Neck: non-tender, normal alignment Respiratory/Chest: normal breath sounds bilaterally Cardiovascular/Chest: normal peripheral pulses, normal rate Abdomen: normal bowel sounds, soft, nontender +++ ascites Avery Guo MD Jul 09, 2019 14:56
[2019-07-09 16:00] VITALS: BP 158/78
--- NOTE | 2019-07-09 16:56 | Consultation ---
DATE OF CONSULTATION: 07/07/2019 INFECTIOUS DISEASES CONSULTATION CONSULTING PHYSICIAN: Dionna Tee M.D. ATTENDING PHYSICIAN: Charlie Meade M.D. REFERRING PHYSICIAN: Elías Arambula REASON FOR CONSULTATION: Sepsis, gram-positive bacteremia, head lice, fevers, pneumonia. HISTORY OF PRESENT ILLNESS: This is a 48-year-old male who comes in to the [facility] with ethanol toxication. Workup showed that he had fevers. Chest x-ray shows patchy infiltrates. UA was mildly positive, however, only 0-2 white blood cells. The patient's blood cultures are growing gram-positive organisms. The patient is likely with sepsis and has fevers. The patient has empirically been started on vancomycin and Zosyn. Infectious Disease consultation was requested for antibiotic management of the patient. MAR was noted. Orders were noted. Notes were reviewed. Case was discussed with Dr. Arambula. REVIEW OF SYSTEMS: CONSTITUTIONAL: The patient comes in with fevers. He has weakness. He came in with alcohol intoxication and altered mental status. HEENT: Currently, he has head lice. CARDIAC: No pressors. GASTROINTESTINAL: No nausea, vomiting, or diarrhea. GENITOURINARY: No dysuria or frequency. No Avina. PULMONARY: No congestion or shortness of breath. SKIN: No rash or itching. NEUROLOGIC: No seizures. PAST MEDICAL HISTORY: The patient has past medical history of alcohol intoxication. He has history of it looks like anemia, cirrhosis, substance abuse, hypokalemia. No history of diabetes or hypertension mentioned. ALLERGIES: No known drug allergies. SOCIAL HISTORY: Positive for alcohol abuse. FAMILY HISTORY: Noncontributory. MEDICATIONS: Upon reviewing the MAR, he is on the following medications. He is on lactulose, vancomycin, and Zosyn. He has been on IV fluids, potassium supplementation. He is on Cephulac, Ativan, folate, vitamin. Outside medications noted and reconciliated. PHYSICAL EXAMINATION: VITAL SIGNS: T-max is 100.4. Currently, temperature 97.7, pulse rate 107, respiratory rate 22, blood pressure 124/79, saturating 97%. GENERAL: Alert and responsive. HEAD AND NECK: Neck is supple. He is normocephalic. He has no obvious icterus or thrush. HEART: Regular. No obvious gallop or murmur. ABDOMEN: Soft. Positive bowel sounds. Nontender. LUNGS: Bilateral rhonchi. Possible rales at bases. SKIN: No rash. He did have head lice. MUSCULOSKELETAL: No effusion. Legs are without cellulitis. He has some edema. PERIPHERAL VASCULAR: No gangrene. GENITOURINARY: No Avina. LINE SITES: Without phlebitis. NEUROLOGIC: Generalized weakness, responsive. Nonfocal. LABORATORY DATA: White count 9.0, hemoglobin 7.6, platelet count is 80,000. Creatinine is 0.9. Total bilirubin is 2.7. Cultures, blood cultures are positive for gram-positive organisms in both sets tested, both bottles identification is pending. Urinalysis, he has had 1+ leukocyte esterase, only 0-2 white cells. I am not clear if paracentesis was done. Hepatitis panel was negative. HIV is negative. IMAGING STUDIES: Chest x-ray shows patchy infiltrates in the left lung base. Sputum culture was ordered. It looks like paracentesis was done. Echo was done also, which showed no mention of vegetations. ASSESSMENT AND PLAN: 1. The patient comes in with gram-positive bacteremia, sepsis, fevers, altered mental status, tachycardia, SIRS criteria, and elevated respiratory rate of over 20. The patient it looks like could have pneumonia, has high risk for aspiration and community-acquired pneumonia. The patient also has sepsis syndrome. It is unclear if he has UTI clinically and also based on urinalysis if he has UTI. At this time, we will continue vancomycin and Zosyn empirically for MRSA and gram-negative coverage. Continue vancomycin and Zosyn for sepsis, pneumonia, gram-positive bacteremia. Check surveillance blood cultures, identification of blood cultures from followup laboratories, x-ray, sputum culture, Legionella, Mycoplasma. Continue vancomycin and Zosyn and also add azithromycin for community-acquired pneumonia. 2. Liver cirrhosis. 3. Anemia. 4. Pancytopenia. 5. GI followup. The patient may need EGD. 6. The patient has head lice. The patient was given Nix Shampoo. 7. Alcoholic intoxication. 8. Social history positive for ETOH. 9. MAR was noted. 10. Case discussed with RN. 11. Family history noncontributory. 12. No known allergies. 13. Case discussed with Dr. Arambula. 14. Continue treatment per primary consultants. 15. Skin care protocol. Dionna Tee M.D. DR: Michela JOB#: [id number] CC:
--- NOTE | 2019-07-09 19:15 | NUR ---
HAND-OFF: Report given to .FAHEEM ROCHA.
--- NOTE | 2019-07-09 19:35 | NUR ---
NURSE NOTES: PATIENT DROWSY, DID NOT FOLLOW COMMANDS AT THIS TIME, TRIED TO OUT OF BED, KEPT ON BED ALARM, MADE LOWER BED POSITION, PROVIDED CALL LIGHT WITHIN REACH, WILL CONTINUE TO MONITOR.
[2019-07-09 20:00] VITALS: BP 113/66
--- NOTE | 2019-07-09 22:00 | NUR ---
NURSE NOTES: PATIENT ASLEEP STATUS AT THIS TIME.
[2019-07-10] VITALS: BP 113/69
--- NOTE | 2019-07-10 01:00 | NUR ---
NURSE NOTES: NO PAIN OR SOB NOTED AT THIS TIME.
--- NOTE | 2019-07-10 03:00 | NUR ---
NURSE NOTES: NO ACUTE DISTRESS NOTED AT THIS TIME.
[2019-07-10 04:00] VITALS: BP 113/73
--- NOTE | 2019-07-10 05:20 | NUR ---
NURSE NOTES: MORNING CARE AND ORAL CARE WAS DONE, GREENISH STOOL OUTED.
[2019-07-10 07:08] LABS: HEMATOCRIT 30.6 % (42.0-52.0); HEMOGLOBIN 8.9 G/DL (14.2-18.0); MEAN CORPUSCULAR VOLUME 94 FL (80-99); PLATELET COUNT 92 K/UL (150-450); RED BLOOD COUNT 3.25 M/UL (4.70-6.10); RED CELL DISTRIBUTION WIDTH 24.6 % (11.6-14.8); WHITE BLOOD COUNT 6.1 K/UL (4.8-10.8)
--- NOTE | 2019-07-10 07:10 | NUR ---
NURSE NOTES: RECEIVED BED SIDE REPORT FROM FAHEEM CLIENT BUSINESS MANAGER OF NOC SHIFT. RECEIVED PT RESTING COMFORTABLY HOB ELEVATED 45 DEGREE.NO S/S OF PAIN OR ANY DISCOMFORT AT THIS TIME. EYES OPENS WITH VERBAL AND TACTILE STIMULI.FULL AM BODY ASSESSMENT DONE.DR LEI MADE AWARE AND NOTIFIED REGARDING K+ LEVEL IS 3.2.M.D STATING THAT HE WILL ORDER POTASSIUM IVPB. PT REMAINS FREE OF INJURIES AT THIS TIME . WILL CONT TO MONITOR.
--- NOTE | 2019-07-10 07:10 | NUR ---
HAND-OFF: Report given to JOSFEINA MACIAS.
[2019-07-10 07:14] LABS: INR 1.7 (0.9-1.1)
[2019-07-10 07:25] LABS: ALANINE AMINOTRANSFERASE 23 U/L (12-78); ALBUMIN/GLOBULIN RATIO 0.2 (1.0-2.7); ALKALINE PHOSPHATASE 95 U/L (46-116); ANION GAP 7 mmol/L (5-15); ASPARTATE AMINO TRANSFERASE 85 U/L (15-37); BILIRUBIN,TOTAL 1.7 MG/DL (0.2-1.0); BLOOD UREA NITROGEN 7 mg/dL (7-18); CALCIUM 8.2 MG/DL (8.5-10.1); CARBON DIOXIDE 25 MMOL/L (21-32); CHLORIDE 115 MMOL/L (98-107); POTASSIUM 3.2 MMOL/L (3.5-5.1); SODIUM 147 MMOL/L (136-145)
[2019-07-10 07:27] LABS: BILIRUBIN,DIRECT 1.2 MG/DL (0.0-0.3)
--- NOTE | 2019-07-10 07:40 | General Progress Note ---
Assessment/Plan Problem List: (1) Anemia ICD Codes: D64.9 - Anemia, unspecified SNOMED: 646268840 Qualifiers: Qualified Codes: D64.9 - Anemia, unspecified (2) Acute alcoholic intoxication ICD Codes: F10.929 - Alcohol use, unspecified with intoxication, unspecified SNOMED: 79197238, 7855061 Qualifiers: Qualified Codes: F10.929 - Alcohol use, unspecified with intoxication, unspecified (3) Cirrhosis ICD Codes: K74.60 - Unspecified cirrhosis of liver SNOMED: 40705595 (4) Ascites ICD Codes: R18.8 - Other ascites SNOMED: 473420818 Status: stable, progressing Assessment/Plan: vit k given fu stool ob no obvious GIB per nurses fu labs protonix eating better today psych in put appreciated on librium now hold GT or NGT plans for now Subjective ROS Limited/Unobtainable: Yes Allergies: Coded Allergies: No Known Allergies (Unverified , 07/03/19) Objective Last 24 Hour Vital Signs Date Time Temp Pulse Resp B/P (MAP) Pulse Ox O2 Delivery O2 Flow Rate FiO2 07/10/19 04:00 Room Air 07/10/19 04:00 97.7 83 20 113/73 (86) 99 07/10/19 03:25 84 07/10/19 00:00 97.5 85 20 113/69 (84) 95 07/10/19 00:00 Room Air 07/09/19 23:26 89 07/09/19 20:00 Room Air 07/09/19 20:00 97.5 93 18 113/66 (82) 98 07/09/19 19:34 94 07/09/19 17:12 90 07/09/19 16:00 Room Air 07/09/19 16:00 96.8 86 19 158/78 (104) 97 07/09/19 13:05 100 07/09/19 12:00 96.0 86 20 113/63 (80) 97 07/09/19 12:00 Room Air 07/09/19 08:00 82 07/09/19 08:00 95.9 85 18 119/58 (78) 97 07/09/19 08:00 Room Air Intake and Output 07/09/19 07/10/19 19:00 07:00 Intake Total 1605.0 ml 595.0 ml Balance 1605.0 ml 595.0 ml Intake Oral 1020 ml 100 ml IV Total 585.0 ml 495.0 ml # Voids 2 3 # Bowel Movements 1 2 Laboratory Tests 07/10/19 05:10: Stool Occult Blood [Pending] 07/10/19 06:50: White Blood Count 6.1, Red Blood Count 3.25L, Hemoglobin 8.9L, Hematocrit 30.6L , Mean Corpuscular Volume 94, Mean Corpuscular Hemoglobin 27.2, Mean Corpuscular Hemoglobin Concent 28.9L, Red Cell Distribution Width 24.6H, Platelet Count 92L, Mean Platelet Volume 7.5, Neutrophils (%) (Auto) , Lymphocytes (%) (Auto) , Monocytes (%) (Auto) , Eosinophils (%) (Auto) , Basophils (%) (Auto) , Neutrophils % (Manual) [Pending], Lymphocytes % (Manual) [Pending], Platelet Estimate [Pending], Platelet Morphology [Pending], Prothrombin Time 17.3H, Prothromb Time International Ratio 1.7H, Activated Partial Thromboplast Time 38H, Sodium Level 147H, Potassium Level 3.2L, Chloride Level 115H, Carbon Dioxide Level 25, Anion Gap 7, Blood Urea Nitrogen 7 , Creatinine 1.0, Estimat Glomerular Filtration Rate > 60, Glucose Level 94, Calcium Level 8.2L, Total Bilirubin 1.7H, Direct Bilirubin 1.2H, Aspartate Amino Transf (AST/SGOT) 85H, Alanine Aminotransferase (ALT/SGPT) 23, Alkaline Phosphatase 95, Ammonia [Pending], Total Protein 7.2, Albumin 1.0L, Globulin 6.2 , Albumin/Globulin Ratio 0.2L, Vancomycin Level Trough 29.5H Height (Feet): 5 Height (Inches): 8.00 Weight (Pounds): 157 General Appearance: agitated EENT: normal ENT inspection Neck: supple Cardiovascular: normal rate Respiratory/Chest: decreased breath sounds Abdomen: normal bowel sounds, non tender, soft Extremities: non-tender Robert Guzman MD Jul 10, 2019 07:40
[2019-07-10] MEDS: Piperacillin/Tazobactam 3.375 GM in NS 110 ML IVPB SCH ×2 (07:56→17:59)
[2019-07-10 08:00] VITALS: BP 139/73
[2019-07-10] MEDS ORDERED: Sodium Chloride for KCL Premix x 2hrs IV SCH (08:00)
--- NOTE | 2019-07-10 08:59 | Hematology/Onc Progress Note ---
Assessment/Plan Assessment/Plan ASSESSMENT AND RECS # Anemia of iron deficiency in addition to suppression from etoh abuse and cirrhosis of liver --> Anemia workup has been ordered, rule out gi bleed --> aid noted --> No evidence of hemolysis is noted, peripheral smear has been reviewed. --> Hgb goal >7. Transfuse prn. --> Hgb trend: 4.2-->7.1-->7.6 --> 7.6-->7.7-->8.9 --> IRON IV 200mg stat ordered x 1dose --> Medications have been reviewed --> low threshold for gi evaluation in case has occult + --> bone marrow biopsy is not indicated given the other more likely causes # Thrombocytopenia - secondary to liver cirrhosis --> Hep panel and HIV ordered - both negative --> US abd to evaluate for cirrhosis and hsm ordered - Hepatic surface nodularity, suggestive of cirrhosis. Ascites --> Peripheral smear ordered to evaluate for blasts /schistocytes and none significant noted --> abx and other meds have been reviewed --> ok for ppx if plt >50k w/ either heparin or lovenox --> Transfuse if Plt < 20k and fever, or if Plt < 10k without fever --> plt trend 90-->92k # Coagulopathy due to liver cirrhosis secondary to Etoh --> GI is following, appreciate rcs --> Abdominal ultrasound reviewed --> Supportive care --> lactulose prophylactic # Substance abuse --> psych eval # Hypokalemia --> Replace, continue to monitor # Hypocalcemia --> replete Ca++ prn # Cirrhosis of the liver The timing of this note does not necessarily reflect the time of the patient was seen. GREATLY APPRECIATE CONSULTATION. Subjective Constitutional: Denies: no symptoms, chills, fever, malaise, weakness, other HEENT: Denies: no symptoms, eye pain, blurred vision, tearing, double vision, ear pain, ear discharge, nose pain, nose congestion, throat pain, throat swelling, mouth pain, mouth swelling, other Respiratory: Denies: no symptoms, cough, shortness of breath, SOB with excertion, SOB at rest, sputum, wheezing, other Gastrointestinal/Abdominal: Denies: no symptoms, abdomen distended, abdominal pain, black stools, tarry stools, blood in stool, constipated, diarrhea, difficulty swallowing, nausea, poor appetite, poor fluid intake, rectal bleeding , vomiting, other Genitourinary: Denies: no symptoms, burning, discharge, frequency, flank pain, hematuria, incontinence, pain, urgency, other Neurologic/Psychiatric: Denies: no symptoms, anxiety, depressed, emotional problems, headache, numbness, paresthesia, pre-existing deficit, seizure, tingling, tremors, weakness, other Endocrine: Denies: no symptoms, excessive sweating, flushing, intolerance to cold, intolerance to heat, increased hunger, increased thirst, increased urine, unexplained weight gain, unexplained weight loss, other Allergies: Coded Allergies: No Known Allergies (Unverified , 07/03/19) Subjective 07/05: no fevers, chills or night sweats noted, on iv iron has been started, on benzo 07/07: extremely agitated overnight, climbin out of bed, on cristina taper, h/h low 07/08: remains on abx, no f/c, no bleeding is noted, no changes 07/09: paracentesis negative for malignant cells, cxr and labs reviewed 07/10: no acute distress, still drowsy, has been attempting to get out of bed Objective Objective Current Medications Medications (Trade) Dose Ordered Sig/Tanja Route PRN Reason Start Time Stop Time Status Last Admin Dose Admin Azithromycin (Zithromax) 500 mg DAILY ORAL 07/07/19 16:00 07/14/19 15:59 07/09/19 12:58 Chlordiazepoxide (Librium) 25 mg TID ORAL 07/05/19 13:30 07/12/19 13:29 07/09/19 18:35 Folic Acid (Folate) 1 mg DAILY ORAL 07/04/19 10:30 08/03/19 10:29 07/09/19 12:58 Lactulose (Cephulac) 20 gm THREE TIMES A DAY ORAL 07/05/19 13:00 08/04/19 12:59 07/09/19 18:34 Lorazepam (Ativan) 2 mg Q6H PRN ORAL For Anxiety 07/05/19 00:15 07/12/19 00:14 07/08/19 23:07 Pantoprazole (Protonix) 40 mg EVERY 12 HOURS IVP 07/04/19 09:00 08/03/19 08:59 07/09/19 20:30 Piperacillin Sod/ Tazobactam Sod 3.375 gm/Sodium Chloride 110 ml @ 27.5 mls/hr Q8HR@0000,0800,1600 IVPB 07/06/19 16:00 07/13/19 15:59 07/10/19 07:56 Potassium Chloride 100 ml @ 100 mls/hr Q1HR IVPB 07/10/19 08:00 07/10/19 09:59 Rifaximin (Xifaxan) 550 mg EVERY 12 HOURS ORAL 07/08/19 21:00 07/15/19 20:59 07/09/19 20:30 Sodium Chloride 200 ml @ 100 mls/hr Q2H IV 07/10/19 08:00 07/10/19 09:59 07/10/19 08:55 Thiamine HCl (Vitamin B1) 100 mg DAILY ORAL 07/04/19 10:30 08/03/19 10:29 07/09/19 12:58 Vancomycin HCl (Vanco rx to dose) 1 ea DAILY PRN MISC Per rx protocol 07/06/19 13:00 08/05/19 12:59 Last 24 Hour Vital Signs Date Time Temp Pulse Resp B/P (MAP) Pulse Ox O2 Delivery O2 Flow Rate FiO2 07/10/19 04:00 Room Air 07/10/19 04:00 97.7 83 20 113/73 (86) 99 07/10/19 03:25 84 07/10/19 00:00 97.5 85 20 113/69 (84) 95 07/10/19 00:00 Room Air 07/09/19 23:26 89 07/09/19 20:00 Room Air 07/09/19 20:00 97.5 93 18 113/66 (82) 98 07/09/19 19:34 94 07/09/19 17:12 90 07/09/19 16:00 Room Air 07/09/19 16:00 96.8 86 19 158/78 (104) 97 07/09/19 13:05 100 07/09/19 12:00 96.0 86 20 113/63 (80) 97 07/09/19 12:00 Room Air 07/09/19 08:00 82 07/09/19 08:00 95.9 85 18 119/58 (78) 97 07/09/19 08:00 Room Air 07/09/19 04:00 98.1 100 18 130/68 (88) 100 07/09/19 04:00 Room Air 07/09/19 03:30 91 07/09/19 00:00 97.3 90 18 124/87 (99) 100 07/09/19 00:00 Room Air 07/08/19 23:27 93 07/08/19 20:00 97.5 100 18 133/79 (97) 100 07/08/19 20:00 Room Air 07/08/19 19:47 98 07/08/19 16:00 Room Air 07/08/19 16:00 104 07/08/19 16:00 97.5 102 20 129/90 (103) 100 07/08/19 12:00 110 07/08/19 12:00 Room Air 07/08/19 11:52 97.3 92 20 117/61 (79) 100 Intake and Output 07/09/19 07/10/19 19:00 07:00 Intake Total 1605.0 ml 595.0 ml Balance 1605.0 ml 595.0 ml Intake Oral 1020 ml 100 ml IV Total 585.0 ml 495.0 ml # Voids 2 3 # Bowel Movements 1 2 Labs Test 07/07/19 13:08 07/07/19 15:15 07/07/19 19:19 07/08/19 03:50 Vancomycin Level Trough 9.9 ug/mL (5.0-12.0) Urine Color Brown Urine Appearance Clear Urine pH 6.5 (4.5-8.0) Urine Specific [place] 1.010 (1.005-1.035) Urine Protein 1+ (NEGATIVE) Urine Glucose (UA) Negative (NEGATIVE) Urine Ketones 1+ (NEGATIVE) Urine Blood 4+ (NEGATIVE) Urine Nitrite Negative (NEGATIVE) Urine Bilirubin 1+ (NEGATIVE) Urine Ictotest Negative (NEGATIVE) Urine Urobilinogen 8 MG/DL (0.0-1.0) Urine Leukocyte Esterase 1+ (NEGATIVE) Urine RBC 5-10 /HPF (0 - 0) Urine WBC 2-4 /HPF (0 - 0) Urine Squamous Epithelial Cells None /LPF (NONE/OCC) Urine Bacteria Moderate /HPF (NONE) Urine Yeast Few /HPF (NONE) White Blood Count 8.0 K/UL (4.8-10.8) Red Blood Count 2.73 M/UL (4.70-6.10) Hemoglobin 7.6 G/DL (14.2-18.0) Hematocrit 24.7 % (42.0-52.0) Mean Corpuscular Volume 90 FL (80-99) Mean Corpuscular Hemoglobin 27.7 PG (27.0-31.0) Mean Corpuscular Hemoglobin Concent 30.6 G/DL (32.0-36.0) Red Cell Distribution Width 22.0 % (11.6-14.8) Platelet Count 74 K/UL (150-450) Mean Platelet Volume 7.6 FL (6.5-10.1) Neutrophils (%) (Auto) % (45.0-75.0) Lymphocytes (%) (Auto) % (20.0-45.0) Monocytes (%) (Auto) % (1.0-10.0) Eosinophils (%) (Auto) % (0.0-3.0) Basophils (%) (Auto) % (0.0-2.0) Differential Total Cells Counted 100 Neutrophils % (Manual) 61 % (45-75) Lymphocytes % (Manual) 18 % (20-45) Monocytes % (Manual) 19 % (1-10) Eosinophils % (Manual) 2 % (0-3) Basophils % (Manual) 0 % (0-2) Band Neutrophils 0 % (0-8) Platelet Estimate Decreased Platelet Morphology Normal Polychromasia 1+ Hypochromasia 2+ Anisocytosis 2+ Target Cells Occasional Sodium Level 140 MMOL/L (136-145) Potassium Level 2.9 MMOL/L (3.5-5.1) Chloride Level 110 MMOL/L (98-107) Carbon Dioxide Level 23 MMOL/L (21-32) Anion Gap 7 mmol/L (5-15) Blood Urea Nitrogen 7 mg/dL (7-18) Creatinine 0.9 MG/DL (0.55-1.30) Estimat Glomerular Filtration Rate > 60 mL/min (>60) Glucose Level 87 MG/DL (74-106) Calcium Level 7.9 MG/DL (8.5-10.1) Magnesium Level 1.7 MG/DL (1.8-2.4) Total Bilirubin 2.0 MG/DL (0.2-1.0) Direct Bilirubin 1.5 MG/DL (0.0-0.3) Aspartate Amino Transf (AST/SGOT) 58 U/L (15-37) Alanine Aminotransferase (ALT/SGPT) 15 U/L (12-78) Alkaline Phosphatase 100 U/L (46-116) Total Protein 7.3 G/DL (6.4-8.2) Albumin 1.0 G/DL (3.4-5.0) Globulin 6.3 g/dL Albumin/Globulin Ratio 0.2 (1.0-2.7) Test 07/08/19 13:10 07/08/19 14:45 07/09/19 04:20 07/10/19 05:10 Vancomycin Level Trough 26.5 ug/mL (5.0-12.0) White Blood Count 7.1 K/UL (4.8-10.8) Red Blood Count 2.79 M/UL (4.70-6.10) Hemoglobin 7.7 G/DL (14.2-18.0) Hematocrit 26.1 % (42.0-52.0) Mean Corpuscular Volume 93 FL (80-99) Mean Corpuscular Hemoglobin 27.5 PG (27.0-31.0) Mean Corpuscular Hemoglobin Concent 29.4 G/DL (32.0-36.0) Red Cell Distribution Width 24.8 % (11.6-14.8) Platelet Count 83 K/UL (150-450) Mean Platelet Volume 7.1 FL (6.5-10.1) Neutrophils (%) (Auto) % (45.0-75.0) Lymphocytes (%) (Auto) % (20.0-45.0) Monocytes (%) (Auto) % (1.0-10.0) Eosinophils (%) (Auto) % (0.0-3.0) Basophils (%) (Auto) % (0.0-2.0) Differential Total Cells Counted 100 Neutrophils % (Manual) 74 % (45-75) Lymphocytes % (Manual) 7 % (20-45) Monocytes % (Manual) 15 % (1-10) Eosinophils % (Manual) 4 % (0-3) Basophils % (Manual) 0 % (0-2) Band Neutrophils 0 % (0-8) Platelet Estimate Decreased Platelet Morphology Normal Hypochromasia 1+ Anisocytosis 2+ Sodium Level 145 MMOL/L (136-145) Potassium Level 3.0 MMOL/L (3.5-5.1) Chloride Level 112 MMOL/L (98-107) Carbon Dioxide Level 25 MMOL/L (21-32) Anion Gap 8 mmol/L (5-15) Blood Urea Nitrogen 6 mg/dL (7-18) Creatinine 1.0 MG/DL (0.55-1.30) Estimat Glomerular Filtration Rate > 60 mL/min (>60) Glucose Level 123 MG/DL (74-106) Calcium Level 8.3 MG/DL (8.5-10.1) Magnesium Level 1.6 MG/DL (1.8-2.4) Total Bilirubin 1.8 MG/DL (0.2-1.0) Direct Bilirubin 1.2 MG/DL (0.0-0.3) Aspartate Amino Transf (AST/SGOT) 61 U/L (15-37) Alanine Aminotransferase (ALT/SGPT) 16 U/L (12-78) Alkaline Phosphatase 105 U/L (46-116) Ammonia 46 umol/L (11-32) Total Protein 7.2 G/DL (6.4-8.2) Albumin 1.0 G/DL (3.4-5.0) Globulin 6.2 g/dL Albumin/Globulin Ratio 0.2 (1.0-2.7) Test 07/10/19 06:50 White Blood Count 6.1 K/UL (4.8-10.8) Red Blood Count 3.25 M/UL (4.70-6.10) Hemoglobin 8.9 G/DL (14.2-18.0) Hematocrit 30.6 % (42.0-52.0) Mean Corpuscular Volume 94 FL (80-99) Mean Corpuscular Hemoglobin 27.2 PG (27.0-31.0) Mean Corpuscular Hemoglobin Concent 28.9 G/DL (32.0-36.0) Red Cell Distribution Width 24.6 % (11.6-14.8) Platelet Count 92 K/UL (150-450) Mean Platelet Volume 7.5 FL (6.5-10.1) Neutrophils (%) (Auto) % (45.0-75.0) Lymphocytes (%) (Auto) % (20.0-45.0) Monocytes (%) (Auto) % (1.0-10.0) Eosinophils (%) (Auto) % (0.0-3.0) Basophils (%) (Auto) % (0.0-2.0) Differential Total Cells Counted 100 Neutrophils % (Manual) 85 % (45-75) Lymphocytes % (Manual) 6 % (20-45) Monocytes % (Manual) 8 % (1-10) Eosinophils % (Manual) 1 % (0-3) Basophils % (Manual) 0 % (0-2) Band Neutrophils 0 % (0-8) Smudge Cells 1+ Platelet Estimate Decreased Platelet Morphology Normal Anisocytosis 2+ Target Cells 1+ Prothrombin Time 17.3 SEC (9.30-11.50) Prothromb Time International Ratio 1.7 (0.9-1.1) Activated Partial Thromboplast Time 38 SEC (23-33) Sodium Level 147 MMOL/L (136-145) Potassium Level 3.2 MMOL/L (3.5-5.1) Chloride Level 115 MMOL/L (98-107) Carbon Dioxide Level 25 MMOL/L (21-32) Anion Gap 7 mmol/L (5-15) Blood Urea Nitrogen 7 mg/dL (7-18) Creatinine 1.0 MG/DL (0.55-1.30) Estimat Glomerular Filtration Rate > 60 mL/min (>60) Glucose Level 94 MG/DL (74-106) Calcium Level 8.2 MG/DL (8.5-10.1) Total Bilirubin 1.7 MG/DL (0.2-1.0) Direct Bilirubin 1.2 MG/DL (0.0-0.3) Aspartate Amino Transf (AST/SGOT) 85 U/L (15-37) Alanine Aminotransferase (ALT/SGPT) 23 U/L (12-78) Alkaline Phosphatase 95 U/L (46-116) Ammonia 28 umol/L (11-32) Total Protein 7.2 G/DL (6.4-8.2) Albumin 1.0 G/DL (3.4-5.0) Globulin 6.2 g/dL Albumin/Globulin Ratio 0.2 (1.0-2.7) Vancomycin Level Trough 29.5 ug/mL (5.0-12.0) Height (Feet): 5 Height (Inches): 8.00 Weight (Pounds): 157 Objective Physical Exam: Vitals: reviewed General Appearance: NAD HEENT: normocephalic, atraumatic Neck: non-tender, normal alignment Respiratory/Chest: normal breath sounds bilaterally Cardiovascular/Chest: normal peripheral pulses, normal rate Abdomen: normal bowel sounds, soft, nontender +++ ascites Avery Guo MD Jul 10, 2019 08:59
[2019-07-10] MEDS: Pantoprazole Inj IVP SCH ×2 (09:02→20:32)
[2019-07-10] MEDS: Lactulose 20gm/30ml UDC ORAL SCH ×3 (09:02→18:13)
[2019-07-10] MEDS: chlordiazePOXIDE 25mg Cap ORAL SCH ×3 (09:02→18:13)
[2019-07-10] MEDS: Azithromycin 250mg tab ORAL SCH (09:03)
[2019-07-10] MEDS: Thiamine 100mg tab ORAL SCH (09:03)
--- NOTE | 2019-07-10 10:09 | NUR ---
CASE MANAGEMENT: REVIEW 07/10/2019 SI:ETHANOL INTOXICATION. ANEMIA. ABD DISTENTION. T 96.3 hr 79 RR 19 B/P 139/73 SATS 95% ON RA NA 147 K 3.2 CL 115 CA 8.2 TBILI 1.7 DBILI 1.2 AST 85 IS: IVF @ 50 mL/HR PROTONIX IV Q12H FOLATE PO QD THIAMINE PO QD VANCO IV Q8H AZITHROMYCIN PO QD LACTULOSE BID IRRIGATION SDU DCP: PATIENT TO BE DISCHARGED TO APPROPRIATE LOCATION ONCE MEDICALLY CLEARED.
[2019-07-10 12:00] VITALS: BP 120/75
--- NOTE | 2019-07-10 12:03 | General Progress Note ---
Assessment/Plan Status: stable, progressing Assessment/Plan: Assessment/Plan: 48-year-old male with past medical history of ETOH abuse presented found down. #Encephalopathy likely multifactorial including hepatic encephalopathy ( elevated ammonia), as well as sepsis (new fever of 100.4, tachycardia) with bacteremia due to MSSA. #Sepsis secondary to possible SBP, decompensated liver cirrhosis, bacteremia due to MSSA - cxr shows patchy LL infiltrate -cont. vancomycin and Zosyn (07/06) -Infectious disease consult, appreciate recs and discussed today - REPEAT BCx pending # Lice - primerin treatment - Ordered to clip hair as persistent lice noted despite 2 shampoo treatment #Liver cirrhosis secondary to EtOH # ETOH withdrawal. Libirum being used. - DF 31 -MELD 15 -Abdominal ultrasound reviewed -Status post paracentesis 07/05/2019 with removal of 8 L., Follow-up diagnostic results evaluate for SBP, ordered but not done! -Albumin for BP support as needed -Supportive care - lactulose SC #Anemia, likely might multifactorial including acute blood loss anemia, anemia of chronic disease -Hematology consult, appreciate recs -Iron panel: Reviewed -Low folate: Replace -B12 within normal limits above 800 -GI consult, appreciate recs. HOLD OFF NGT for now due to risk with possible esophageal varices. PENDING EGD per GI decision. Patient is gradually waking up and eating a bit more today. MONITOR closely as he is now 7 days into the Hospital stay. #Substance abuse -Nodular liver in ultrasound suggestive of cirrhosis -Check hepatitis and HIV: hiv neg, hep pending -Social work Consult - Psyche consult, appreciate recs #Hypokalemia Replace as needed, continue to monitor # Hypomagnesemia Replace today # Hypocalcemia - replace as needed #Dysphagia -Etiology due to agitation, likely due underlying hepatic encephalopathy vs side effect of Ativan #full code The time of my note may not reflect the time of my patient encounter. Subjective ROS Limited/Unobtainable: Yes Allergies: Coded Allergies: No Known Allergies (Unverified , 07/03/19) All Systems: reviewed and negative except above Subjective Able to tell me his name only. Moves 4 extremities. Objective Last 24 Hour Vital Signs Date Time Temp Pulse Resp B/P (MAP) Pulse Ox O2 Delivery O2 Flow Rate FiO2 07/10/19 08:00 Room Air 07/10/19 08:00 96.3 79 19 139/73 (95) 95 07/10/19 08:00 81 07/10/19 04:00 Room Air 07/10/19 04:00 97.7 83 20 113/73 (86) 99 07/10/19 03:25 84 07/10/19 00:00 97.5 85 20 113/69 (84) 95 07/10/19 00:00 Room Air 07/09/19 23:26 89 07/09/19 20:00 Room Air 07/09/19 20:00 97.5 93 18 113/66 (82) 98 07/09/19 19:34 94 07/09/19 17:12 90 07/09/19 16:00 Room Air 07/09/19 16:00 96.8 86 19 158/78 (104) 97 07/09/19 13:05 100 07/09/19 12:00 96.0 86 20 113/63 (80) 97 07/09/19 12:00 Room Air Intake and Output 07/09/19 07/10/19 19:00 07:00 Intake Total 1605.0 ml 595.0 ml Balance 1605.0 ml 595.0 ml Intake Oral 1020 ml 100 ml IV Total 585.0 ml 495.0 ml # Voids 2 3 # Bowel Movements 1 2 Laboratory Tests 07/10/19 05:10: Stool Occult Blood [Pending] 07/10/19 06:50: White Blood Count 6.1, Red Blood Count 3.25L, Hemoglobin 8.9L, Hematocrit 30.6L , Mean Corpuscular Volume 94, Mean Corpuscular Hemoglobin 27.2, Mean Corpuscular Hemoglobin Concent 28.9L, Red Cell Distribution Width 24.6H, Platelet Count 92L, Mean Platelet Volume 7.5, Neutrophils (%) (Auto) , Lymphocytes (%) (Auto) , Monocytes (%) (Auto) , Eosinophils (%) (Auto) , Basophils (%) (Auto) , Differential Total Cells Counted 100, Neutrophils % ( Manual) 85H, Lymphocytes % (Manual) 6L, Monocytes % (Manual) 8, Eosinophils % ( Manual) 1, Basophils % (Manual) 0, Band Neutrophils 0, Smudge Cells 1+, Platelet Estimate DecreasedL, Platelet Morphology Normal, Anisocytosis 2+, Target Cells 1+, Prothrombin Time 17.3H, Prothromb Time International Ratio 1.7H , Activated Partial Thromboplast Time 38H, Sodium Level 147H, Potassium Level 3.2L, Chloride Level 115H, Carbon Dioxide Level 25, Anion Gap 7, Blood Urea Nitrogen 7, Creatinine 1.0, Estimat Glomerular Filtration Rate > 60, Glucose Level 94, Calcium Level 8.2L, Magnesium Level 1.6L, Total Bilirubin 1.7H, Direct Bilirubin 1.2H, Aspartate Amino Transf (AST/SGOT) 85H, Alanine Aminotransferase (ALT/SGPT) 23, Alkaline Phosphatase 95, Ammonia 28, Total Protein 7.2, Albumin 1.0L, Globulin 6.2, Albumin/Globulin Ratio 0.2L, Vancomycin Level Trough 29.5H Height (Feet): 5 Height (Inches): 8.00 Weight (Pounds): 157 General Appearance: moderate distress EENT: PERRL/EOMI Neck: non-tender Cardiovascular: normal rate Respiratory/Chest: chest wall non-tender, lungs clear Abdomen: normal bowel sounds, non tender 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
[2019-07-10 16:00] VITALS: BP 103/71
--- NOTE | 2019-07-10 16:13 | Surgery Progress Note ---
Surgery Progress Note Subjective Additional Comments no acute events exam unchanged resting comfortable labs noted prognosis guarded Objective Last 24 Hour Vital Signs Date Time Temp Pulse Resp B/P (MAP) Pulse Ox O2 Delivery O2 Flow Rate FiO2 07/10/19 12:00 96.9 76 20 120/75 (90) 94 07/10/19 12:00 Room Air 07/10/19 12:00 81 07/10/19 08:00 Room Air 07/10/19 08:00 96.3 79 19 139/73 (95) 95 07/10/19 08:00 81 07/10/19 04:00 Room Air 07/10/19 04:00 97.7 83 20 113/73 (86) 99 07/10/19 03:25 84 07/10/19 00:00 97.5 85 20 113/69 (84) 95 07/10/19 00:00 Room Air 07/09/19 23:26 89 07/09/19 20:00 Room Air 07/09/19 20:00 97.5 93 18 113/66 (82) 98 07/09/19 19:34 94 07/09/19 17:12 90 I&O Intake and Output 07/09/19 07/10/19 19:00 07:00 Intake Total 1605.0 ml 595.0 ml Balance 1605.0 ml 595.0 ml Intake Oral 1020 ml 100 ml IV Total 585.0 ml 495.0 ml # Voids 2 3 # Bowel Movements 1 2 Cardiovascular: RSR Respiratory: clear Abdomen: soft, distended, non-tender, decreased bowel sounds Extremities: no cyanosis Laboratory Tests Test 07/10/19 05:10 07/10/19 06:50 Stool Occult Blood Negative (NEGATIVE) White Blood Count 6.1 K/UL (4.8-10.8) Red Blood Count 3.25 M/UL (4.70-6.10) L Hemoglobin 8.9 G/DL (14.2-18.0) L Hematocrit 30.6 % (42.0-52.0) L Mean Corpuscular Volume 94 FL (80-99) Mean Corpuscular Hemoglobin 27.2 PG (27.0-31.0) Mean Corpuscular Hemoglobin Concent 28.9 G/DL (32.0-36.0) L Red Cell Distribution Width 24.6 % (11.6-14.8) H Platelet Count 92 K/UL (150-450) L Mean Platelet Volume 7.5 FL (6.5-10.1) Neutrophils (%) (Auto) % (45.0-75.0) Lymphocytes (%) (Auto) % (20.0-45.0) Monocytes (%) (Auto) % (1.0-10.0) Eosinophils (%) (Auto) % (0.0-3.0) Basophils (%) (Auto) % (0.0-2.0) Differential Total Cells Counted 100 Neutrophils % (Manual) 85 % (45-75) H Lymphocytes % (Manual) 6 % (20-45) L Monocytes % (Manual) 8 % (1-10) Eosinophils % (Manual) 1 % (0-3) Basophils % (Manual) 0 % (0-2) Band Neutrophils 0 % (0-8) Smudge Cells 1+ Platelet Estimate Decreased L Platelet Morphology Normal Anisocytosis 2+ Target Cells 1+ Prothrombin Time 17.3 SEC (9.30-11.50) H Prothromb Time International Ratio 1.7 (0.9-1.1) H Activated Partial Thromboplast Time 38 SEC (23-33) H Sodium Level 147 MMOL/L (136-145) H Potassium Level 3.2 MMOL/L (3.5-5.1) L Chloride Level 115 MMOL/L (98-107) H Carbon Dioxide Level 25 MMOL/L (21-32) Anion Gap 7 mmol/L (5-15) Blood Urea Nitrogen 7 mg/dL (7-18) Creatinine 1.0 MG/DL (0.55-1.30) Estimat Glomerular Filtration Rate > 60 mL/min (>60) Glucose Level 94 MG/DL (74-106) Calcium Level 8.2 MG/DL (8.5-10.1) L Magnesium Level 1.6 MG/DL (1.8-2.4) L Total Bilirubin 1.7 MG/DL (0.2-1.0) H Direct Bilirubin 1.2 MG/DL (0.0-0.3) H Aspartate Amino Transf (AST/SGOT) 85 U/L (15-37) H Alanine Aminotransferase (ALT/SGPT) 23 U/L (12-78) Alkaline Phosphatase 95 U/L (46-116) Ammonia 28 umol/L (11-32) Total Protein 7.2 G/DL (6.4-8.2) Albumin 1.0 G/DL (3.4-5.0) L Globulin 6.2 g/dL Albumin/Globulin Ratio 0.2 (1.0-2.7) L Vancomycin Level Trough 29.5 ug/mL (5.0-12.0) H Plan Problems: (1) Abdominal distension Assessment & Plan: Abdominal distention from ascites as he has significant liver dysfunction para with 8L fluid without malignant cells micro with bacteremia Findings: There is ascites fluid present. Gallbladder is unremarkable, without stones, wall thickening, nor pericholecystic fluid. Sonographic [place]'s sign is negative. Common bile duct measures 3 mm in diameter. No intrahepatic biliary ductal dilatation. Liver demonstrates slightly increased echogenicity. No focal abnormality. It demonstrates surface nodularity. Portal vein and hepatic veins are patent. Pancreas is obscured by bowel gas. Spleen is unremarkable. Left kidney measures 11.4 cm in length. Right kidney measures 11.1 cm length. Both kidneys demonstrate normal echogenicity. There is no hydronephrosis. No focal abnormality . Abdominal aorta is partially obscured by bowel gas, visualized portions are non-aneurysmal . Impression: Hepatic surface nodularity, suggestive of cirrhosis. Ascites Negative for gallstones or dilated bile ducts (2) Facial trauma Assessment & Plan: Findings: No acute intracranial hemorrhage or edema. No mass effect or midline shift. Normal hardy-white differentiation. Slightly prominent for age ventricles and extra axial CSF spaces. Mild periventricular deep white matter low-attenuation consistent with chronic microvascular ischemic changes noted Questionable minimal left supraorbital scalp contusion. Intact calvarium. Visualized orbits and sinuses are unremarkable. The mastoids are clear. unknown if fall or assault lip with dry blood and in medial aspect small oozing - resolved apply dressing prn thank you Alvin James Jul 10, 2019 16:13
[2019-07-10] MEDS ORDERED: Vancomycin 750mg/D5W 275ml IVPB SCH ×2 (19:00)
[2019-07-10 20:00] VITALS: BP 123/70
--- NOTE | 2019-07-10 20:00 | NUR ---
NURSE NOTES: RECEIVED BED SIDE REPORT FROM JERONIMO RN. PT SEEMS RESTING COMFORTABLY , EYES OPENS WITH VERBAL AND TACTILE STIMULI.PT ABLE TO FALLOWS SIMPLE COMMANDS IN [place]. FULL BODY ASSESSMENT Done. R FA 20G RUNNING tko AND ABZ ZOSYN. NAD AT THIS TIME. WILL CONTINUE TO MONITOR.
[2019-07-10] MEDS ORDERED: Tubing IV Secondary IV ONE (20:40)
[2019-07-10] MEDS ORDERED: NS 275ml ONE (20:40)
--- NOTE | 2019-07-10 22:00 | NUR ---
NURSE NOTES: All due meds given. Patient cleaned and repositioned. Patient is calm and this time, able to reposition self.
[2019-07-11] VITALS: BP 111/62
--- NOTE | 2019-07-11 | NUR ---
NURSE NOTES: Patient had BM. Patient was cleaned. Head shaven as per ordered by MD in order log sheet. Patients vitals have remained stable. Patient remains lethargic. Mariano hung and now running. Will continue to monitor.
[2019-07-11] MEDS: Piperacillin/Tazobactam 3.375 GM in NS 110 ML IVPB SCH ×4 (00:03→23:52)
--- NOTE | 2019-07-11 02:00 | NUR ---
NURSE NOTES: Patient cleaned and repositioned oral care given, VSS.
--- NOTE | 2019-07-11 02:20 | NUR ---
NURSE NOTES: Patient transferred from [facility], report received from JOSEFINA Allen, patient in stable condition, AOx1, drowsy, IV on R forearm, asymptomatic, intact, belongings checked&signed, bed low&locked, side rails upx3 & padded for seizure precautions, call light within reach, will continue to monitor and reassess.
--- NOTE | 2019-07-11 02:20 | NUR ---
TRANSFER TO FLOOR: Patient transferred to Telemetry room 218-2 Report given to . Belongings and medications given to Cee ROCHA.
[2019-07-11] MEDS ORDERED: LORazepam 0.5mg tab ORAL PRN (02:26)
[2019-07-11 04:00] VITALS: BP 127/69
[2019-07-11 05:47] LABS: HEMATOCRIT 31.4 % (42.0-52.0); HEMOGLOBIN 9.1 G/DL (14.2-18.0); MEAN CORPUSCULAR VOLUME 94 FL (80-99); PLATELET COUNT 82 K/UL (150-450); RED BLOOD COUNT 3.34 M/UL (4.70-6.10); RED CELL DISTRIBUTION WIDTH 24.4 % (11.6-14.8); WHITE BLOOD COUNT 5.5 K/UL (4.8-10.8)
[2019-07-11 06:31] LABS: AMMONIA 34 umol/L (11-32)
[2019-07-11 06:42] LABS: ALANINE AMINOTRANSFERASE 26 U/L (12-78); ALBUMIN 0.9 G/DL (3.4-5.0); ALBUMIN/GLOBULIN RATIO 0.1 (1.0-2.7); ALKALINE PHOSPHATASE 96 U/L (46-116); ANION GAP 7 mmol/L (5-15); ASPARTATE AMINO TRANSFERASE 95 U/L (15-37); BILIRUBIN,TOTAL 1.6 MG/DL (0.2-1.0); BLOOD UREA NITROGEN 7 mg/dL (7-18); CALCIUM 8.4 MG/DL (8.5-10.1); CARBON DIOXIDE 25 MMOL/L (21-32); CHLORIDE 115 MMOL/L (98-107); SODIUM 147 MMOL/L (136-145)
[2019-07-11 06:52] LABS: BILIRUBIN,DIRECT 1.1 MG/DL (0.0-0.3)
[2019-07-11] MEDS: Vancomycin 750 MG in D5W 275 ML IVPB SCH ×2 (07:10→20:22)
--- NOTE | 2019-07-11 07:25 | NUR ---
HAND-OFF: Report given to JOSEFIAN Zamora, patient in stable condition, plan of care endorsed.
[2019-07-11 08:00] VITALS: BP 105/63
--- NOTE | 2019-07-11 08:04 | NUR ---
NURSE NOTES: Patient received from Kush RN. Patient resting with closed eyes. no s/s of pain,agitation and SOB noted at this time. bed rails padded x2. bed at lowest position, alarm carton maker light and frequent used objects are with in reach. iv intact and patient running vanco at the moment.potassium 3.0 and sodium 147>>>> NOTIFIED AND HE ORDERED" K PIGGYBAG 40 MEQ IV" will continue to monitor.
[2019-07-11] MEDS: Lactulose 20gm/30ml UDC ORAL SCH ×3 (08:30→16:59)
[2019-07-11] MEDS: Pantoprazole Inj IVP SCH ×2 (08:30→20:23)
[2019-07-11] MEDS: chlordiazePOXIDE 25mg Cap ORAL SCH ×3 (08:30→16:59)
[2019-07-11] MEDS: Thiamine 100mg tab ORAL SCH (08:31)
[2019-07-11] MEDS: Azithromycin 250mg tab ORAL SCH (08:31)
[2019-07-11] MEDS ORDERED: Sodium Chloride for KCL Premix X 4hrs IV SCH (09:00)
--- NOTE | 2019-07-11 09:57 | Hematology/Onc Progress Note ---
Assessment/Plan Assessment/Plan ASSESSMENT AND RECS # Anemia of iron deficiency in addition to suppression from etoh abuse and cirrhosis of liver --> Anemia workup has been ordered, rule out gi bleed --> aid noted --> No evidence of hemolysis is noted, peripheral smear has been reviewed. --> Hgb goal >7. Transfuse prn. --> Hgb trend: 4.2-->7.1-->7.6 --> 7.6-->7.7-->8.9-->9.1 --> IRON IV 200mg stat ordered x 1dose --> Medications have been reviewed --> stool ob negative --> bone marrow biopsy is not indicated given the other more likely causes # Thrombocytopenia - secondary to liver cirrhosis --> Hep panel and HIV ordered - both negative --> US abd to evaluate for cirrhosis and hsm ordered - Hepatic surface nodularity, suggestive of cirrhosis. Ascites --> Peripheral smear ordered to evaluate for blasts /schistocytes and none significant noted --> abx and other meds have been reviewed --> ok for ppx if plt >50k w/ either heparin or lovenox --> Transfuse if Plt < 20k and fever, or if Plt < 10k without fever --> plt trend 90-->92k-->82 # Coagulopathy due to liver cirrhosis secondary to Etoh --> GI is following, appreciate rcs --> Abdominal ultrasound reviewed --> Supportive care --> lactulose prophylactic # Substance abuse --> psych eval # Hypokalemia --> Replace, continue to monitor # Hypocalcemia --> replete Ca++ prn # Cirrhosis of the liver The timing of this note does not necessarily reflect the time of the patient was seen. GREATLY APPRECIATE CONSULTATION. Subjective Allergies: Coded Allergies: No Known Allergies (Unverified , 07/03/19) Subjective 07/05: no fevers, chills or night sweats noted, on iv iron has been started, on benzo 07/07: extremely agitated overnight, climbin out of bed, on cristina taper, h/h low 07/08: remains on abx, no f/c, no bleeding is noted, no changes 07/09: paracentesis negative for malignant cells, cxr and labs reviewed 07/10: no acute distress, still drowsy, has been attempting to get out of bed 07/11: transferred from donna to tele, stool ob negative, h/h stable Objective Objective Current Medications Medications (Trade) Dose Ordered Sig/Tanja Route PRN Reason Start Time Stop Time Status Last Admin Dose Admin Azithromycin (Zithromax) 500 mg DAILY ORAL 07/11/19 09:00 07/15/19 15:59 07/11/19 08:31 Chlordiazepoxide (Librium) 25 mg TID ORAL 07/11/19 09:00 07/12/19 13:29 07/11/19 08:30 Folic Acid (Folate) 1 mg DAILY ORAL 07/11/19 09:00 08/03/19 10:29 07/11/19 08:32 Lactulose (Cephulac) 20 gm THREE TIMES A DAY ORAL 07/11/19 09:00 08/04/19 12:59 07/11/19 08:30 Lorazepam (Ativan) 2 mg Q6H PRN ORAL For Anxiety 07/11/19 02:26 07/12/19 02:25 07/11/19 09:01 Pantoprazole (Protonix) 40 mg EVERY 12 HOURS IVP 07/11/19 09:00 08/03/19 08:59 07/11/19 08:30 Piperacillin Sod/ Tazobactam Sod 3.375 gm/Sodium Chloride 110 ml @ 27.5 mls/hr Q8HR@0000,0800,1600 IVPB 07/11/19 08:00 07/13/19 15:59 07/11/19 09:12 Potassium Chloride 100 ml @ 100 mls/hr Q1HR IVPB 07/11/19 09:00 07/11/19 12:59 07/11/19 08:55 Rifaximin (Xifaxan) 550 mg EVERY 12 HOURS ORAL 07/11/19 09:00 07/15/19 20:59 07/11/19 08:31 Sodium Chloride 400 ml @ 100 mls/hr Q4H IV 07/11/19 09:00 07/11/19 12:59 07/11/19 08:55 Thiamine HCl (Vitamin B1) 100 mg DAILY ORAL 07/11/19 09:00 08/03/19 10:29 07/11/19 08:31 Vancomycin HCl (Vanco rx to dose) 1 ea DAILY PRN MISC . 8/29/19 09:15 08/10/19 09:14 Vancomycin HCl 750 mg/Dextrose 275 ml @ 183.333 mls/hr Q12H IVPB 07/11/19 07:00 07/15/19 18:59 07/11/19 07:10 Last 24 Hour Vital Signs Date Time Temp Pulse Resp B/P (MAP) Pulse Ox O2 Delivery O2 Flow Rate FiO2 07/11/19 04:00 78 07/11/19 04:00 98.9 79 21 127/69 (88) 96 07/11/19 00:00 96.5 78 18 111/62 (78) 98 07/11/19 00:00 Room Air 07/11/19 00:00 77 07/10/19 20:00 96.8 80 20 123/70 (87) 96 07/10/19 20:00 80 07/10/19 20:00 Room Air 07/10/19 16:00 75 07/10/19 16:00 Room Air 07/10/19 16:00 96.0 84 20 103/71 (82) 94 07/10/19 12:00 96.9 76 20 120/75 (90) 94 07/10/19 12:00 Room Air 07/10/19 12:00 81 07/10/19 08:00 Room Air 07/10/19 08:00 96.3 79 19 139/73 (95) 95 07/10/19 08:00 81 07/10/19 04:00 Room Air 07/10/19 04:00 97.7 83 20 113/73 (86) 99 07/10/19 03:25 84 07/10/19 00:00 97.5 85 20 113/69 (84) 95 07/10/19 00:00 Room Air 07/09/19 23:26 89 07/09/19 20:00 Room Air 07/09/19 20:00 97.5 93 18 113/66 (82) 98 07/09/19 19:34 94 07/09/19 17:12 90 07/09/19 16:00 Room Air 07/09/19 16:00 96.8 86 19 158/78 (104) 97 07/09/19 13:05 100 07/09/19 12:00 96.0 86 20 113/63 (80) 97 07/09/19 12:00 Room Air Intake and Output 07/10/19 07/11/19 19:00 07:00 Intake Total 1102.5 ml 385.0 ml Output Total 300 ml Balance 802.5 ml 385.0 ml Intake Oral 820 ml IV Total 282.5 ml 385.0 ml Output Urine Total 300 ml # Voids 2 # Bowel Movements 2 2 Labs Test 07/08/19 13:10 07/08/19 14:45 07/09/19 04:20 07/10/19 05:10 Vancomycin Level Trough 26.5 ug/mL (5.0-12.0) Urine Legionella Antigen Negative (Negative) White Blood Count 7.1 K/UL (4.8-10.8) Red Blood Count 2.79 M/UL (4.70-6.10) Hemoglobin 7.7 G/DL (14.2-18.0) Hematocrit 26.1 % (42.0-52.0) Mean Corpuscular Volume 93 FL (80-99) Mean Corpuscular Hemoglobin 27.5 PG (27.0-31.0) Mean Corpuscular Hemoglobin Concent 29.4 G/DL (32.0-36.0) Red Cell Distribution Width 24.8 % (11.6-14.8) Platelet Count 83 K/UL (150-450) Mean Platelet Volume 7.1 FL (6.5-10.1) Neutrophils (%) (Auto) % (45.0-75.0) Lymphocytes (%) (Auto) % (20.0-45.0) Monocytes (%) (Auto) % (1.0-10.0) Eosinophils (%) (Auto) % (0.0-3.0) Basophils (%) (Auto) % (0.0-2.0) Differential Total Cells Counted 100 Neutrophils % (Manual) 74 % (45-75) Lymphocytes % (Manual) 7 % (20-45) Monocytes % (Manual) 15 % (1-10) Eosinophils % (Manual) 4 % (0-3) Basophils % (Manual) 0 % (0-2) Band Neutrophils 0 % (0-8) Platelet Estimate Decreased Platelet Morphology Normal Hypochromasia 1+ Anisocytosis 2+ Sodium Level 145 MMOL/L (136-145) Potassium Level 3.0 MMOL/L (3.5-5.1) Chloride Level 112 MMOL/L (98-107) Carbon Dioxide Level 25 MMOL/L (21-32) Anion Gap 8 mmol/L (5-15) Blood Urea Nitrogen 6 mg/dL (7-18) Creatinine 1.0 MG/DL (0.55-1.30) Estimat Glomerular Filtration Rate > 60 mL/min (>60) Glucose Level 123 MG/DL (74-106) Calcium Level 8.3 MG/DL (8.5-10.1) Magnesium Level 1.6 MG/DL (1.8-2.4) Total Bilirubin 1.8 MG/DL (0.2-1.0) Direct Bilirubin 1.2 MG/DL (0.0-0.3) Aspartate Amino Transf (AST/SGOT) 61 U/L (15-37) Alanine Aminotransferase (ALT/SGPT) 16 U/L (12-78) Alkaline Phosphatase 105 U/L (46-116) Ammonia 46 umol/L (11-32) Total Protein 7.2 G/DL (6.4-8.2) Albumin 1.0 G/DL (3.4-5.0) Globulin 6.2 g/dL Albumin/Globulin Ratio 0.2 (1.0-2.7) Stool Occult Blood Negative (NEGATIVE) Test 07/10/19 06:50 07/11/19 05:39 White Blood Count 6.1 K/UL (4.8-10.8) 5.5 K/UL (4.8-10.8) Red Blood Count 3.25 M/UL (4.70-6.10) 3.34 M/UL (4.70-6.10) Hemoglobin 8.9 G/DL (14.2-18.0) 9.1 G/DL (14.2-18.0) Hematocrit 30.6 % (42.0-52.0) 31.4 % (42.0-52.0) Mean Corpuscular Volume 94 FL (80-99) 94 FL (80-99) Mean Corpuscular Hemoglobin 27.2 PG (27.0-31.0) 27.2 PG (27.0-31.0) Mean Corpuscular Hemoglobin Concent 28.9 G/DL (32.0-36.0) 28.9 G/DL (32.0-36.0) Red Cell Distribution Width 24.6 % (11.6-14.8) 24.4 % (11.6-14.8) Platelet Count 92 K/UL (150-450) 82 K/UL (150-450) Mean Platelet Volume 7.5 FL (6.5-10.1) 7.3 FL (6.5-10.1) Neutrophils (%) (Auto) % (45.0-75.0) % (45.0-75.0) Lymphocytes (%) (Auto) % (20.0-45.0) % (20.0-45.0) Monocytes (%) (Auto) % (1.0-10.0) % (1.0-10.0) Eosinophils (%) (Auto) % (0.0-3.0) % (0.0-3.0) Basophils (%) (Auto) % (0.0-2.0) % (0.0-2.0) Differential Total Cells Counted 100 100 Neutrophils % (Manual) 85 % (45-75) 76 % (45-75) Lymphocytes % (Manual) 6 % (20-45) 10 % (20-45) Monocytes % (Manual) 8 % (1-10) 9 % (1-10) Eosinophils % (Manual) 1 % (0-3) 4 % (0-3) Basophils % (Manual) 0 % (0-2) 1 % (0-2) Band Neutrophils 0 % (0-8) 0 % (0-8) Smudge Cells 1+ Platelet Estimate Decreased Decreased Platelet Morphology Normal Normal Anisocytosis 2+ 1+ Target Cells 1+ Prothrombin Time 17.3 SEC (9.30-11.50) Prothromb Time International Ratio 1.7 (0.9-1.1) Activated Partial Thromboplast Time 38 SEC (23-33) Sodium Level 147 MMOL/L (136-145) 147 MMOL/L (136-145) Potassium Level 3.2 MMOL/L (3.5-5.1) 3.0 MMOL/L (3.5-5.1) Chloride Level 115 MMOL/L (98-107) 115 MMOL/L (98-107) Carbon Dioxide Level 25 MMOL/L (21-32) 25 MMOL/L (21-32) Anion Gap 7 mmol/L (5-15) 7 mmol/L (5-15) Blood Urea Nitrogen 7 mg/dL (7-18) 7 mg/dL (7-18) Creatinine 1.0 MG/DL (0.55-1.30) 1.0 MG/DL (0.55-1.30) Estimat Glomerular Filtration Rate > 60 mL/min (>60) > 60 mL/min (>60) Glucose Level 94 MG/DL (74-106) 89 MG/DL (74-106) Calcium Level 8.2 MG/DL (8.5-10.1) 8.4 MG/DL (8.5-10.1) Magnesium Level 1.6 MG/DL (1.8-2.4) 1.8 MG/DL (1.8-2.4) Total Bilirubin 1.7 MG/DL (0.2-1.0) 1.6 MG/DL (0.2-1.0) Direct Bilirubin 1.2 MG/DL (0.0-0.3) 1.1 MG/DL (0.0-0.3) Aspartate Amino Transf (AST/SGOT) 85 U/L (15-37) 95 U/L (15-37) Alanine Aminotransferase (ALT/SGPT) 23 U/L (12-78) 26 U/L (12-78) Alkaline Phosphatase 95 U/L (46-116) 96 U/L (46-116) Ammonia 28 umol/L (11-32) 34 umol/L (11-32) Total Protein 7.2 G/DL (6.4-8.2) 6.9 G/DL (6.4-8.2) Albumin 1.0 G/DL (3.4-5.0) 0.9 G/DL (3.4-5.0) Globulin 6.2 g/dL 6.0 g/dL Albumin/Globulin Ratio 0.2 (1.0-2.7) 0.1 (1.0-2.7) Vancomycin Level Trough 29.5 ug/mL (5.0-12.0) Height (Feet): 5 Height (Inches): 8.00 Weight (Pounds): 157 Objective Physical Exam: Vitals: reviewed General Appearance: NAD HEENT: normocephalic, atraumatic Neck: non-tender, normal alignment Respiratory/Chest: normal breath sounds bilaterally Cardiovascular/Chest: normal peripheral pulses, normal rate Abdomen: normal bowel sounds, soft, nontender +++ ascites Avery Guo MD Jul 11, 2019 09:57
[2019-07-11 12:00] VITALS: BP 147/52
--- NOTE | 2019-07-11 12:01 | NUR ---
RD ASSESSMENT & RECOMMENDATIONS SEE CARE ACTIVITY FOR COMPLETE ASSESSMENT DAILY ESTIMATED NEEDS: Needs based on Cirrhosis/ 60kg abw 25-30 kcals/kg 0427-2775 total kcals 1-1.5 g protein/kg 60-90 g total protein 25-30 mL/kg 6520-7595 total fluid mLs NUTRITION DIAGNOSIS: * Altered nutrition related lab values R/T cirrhosis, h/o ETOH abuse, clinical condition as evidenced by elev AST and T bili (1.6), elev NH3 (85), low K (3.0), low mag (1.7), low folate (5.1) * Swallowing difficulty R/T confusion, encephalopathy as evidenced by pt on liquify puree texture diet, poor po intake per kcal count. (UPDATED) PO DIET RECOMMENDATIONS: WHEN SAFE FOR ORAL DIET -> LOW NA/ texture per CYTOLOGY LABORATORY MANAGER ENTERAL NUTRITION RECOMMENDATIONS: W/ CURRENT POOR PO INTAKE, REC NON ORAL FEEDS TO MEET EST NEEDS CONSULT RD OF NGT/ OGT FEEDS ARE PART OF POC ADDITIONAL RECOMMENDATIONS: * Calibrated bedscale wt for accurate CBW Bedscale wt: 157lbs vs EMR wt: 180lbs * Monitor lytes daily, replete as needed (low K and mag) * CYTOLOGY LABORATORY MANAGER evaluation for appropriate texture * Rec nonoral feeding if poor po intake continues * Add MVI x 1 ------ 48 hrs Kcal count results (02/16 menu tickets available): meal 1: 10% total meal meal 2: 20% total meal meal 3: 100% water, 3 spoons chicken soup, 1 spoon mashed pot, 100% juice meal 4: 10% spinach, 100% juice, 100% water, 0% intake of pudding, ensure, chicken, soup. --- Pt w/ very poor po intake, est pt is meeting <25% of needs of 1360-4046 kcal per day. Rec non oral feeds at this time to meet est nutritional needs if medically able. Per GI GLOVE SEWER pt w/ cirrhosis, possible varices.
--- NOTE | 2019-07-11 12:07 | Surgery Progress Note ---
Surgery Progress Note Subjective Additional Comments afebrile, HD stable labs improved exam stable somewhat responsive Objective Last 24 Hour Vital Signs Date Time Temp Pulse Resp B/P (MAP) Pulse Ox O2 Delivery O2 Flow Rate FiO2 07/11/19 09:00 Room Air 07/11/19 08:00 97.0 78 21 105/63 (77) 96 07/11/19 04:00 78 07/11/19 04:00 98.9 79 21 127/69 (88) 96 07/11/19 00:00 96.5 78 18 111/62 (78) 98 07/11/19 00:00 Room Air 07/11/19 00:00 77 07/10/19 20:00 96.8 80 20 123/70 (87) 96 07/10/19 20:00 80 07/10/19 20:00 Room Air 07/10/19 16:00 75 07/10/19 16:00 Room Air 07/10/19 16:00 96.0 84 20 103/71 (82) 94 I&O Intake and Output 07/10/19 07/11/19 19:00 07:00 Intake Total 1102.5 ml 385.0 ml Output Total 300 ml Balance 802.5 ml 385.0 ml Intake Oral 820 ml IV Total 282.5 ml 385.0 ml Output Urine Total 300 ml # Voids 2 # Bowel Movements 2 2 Cardiovascular: RSR Respiratory: clear Abdomen: soft, distended, non-tender, present bowel sounds, decreased bowel sounds Extremities: no cyanosis Laboratory Tests Test 07/11/19 05:39 White Blood Count 5.5 K/UL (4.8-10.8) Red Blood Count 3.34 M/UL (4.70-6.10) L Hemoglobin 9.1 G/DL (14.2-18.0) L Hematocrit 31.4 % (42.0-52.0) L Mean Corpuscular Volume 94 FL (80-99) Mean Corpuscular Hemoglobin 27.2 PG (27.0-31.0) Mean Corpuscular Hemoglobin Concent 28.9 G/DL (32.0-36.0) L Red Cell Distribution Width 24.4 % (11.6-14.8) H Platelet Count 82 K/UL (150-450) L Mean Platelet Volume 7.3 FL (6.5-10.1) Neutrophils (%) (Auto) % (45.0-75.0) Lymphocytes (%) (Auto) % (20.0-45.0) Monocytes (%) (Auto) % (1.0-10.0) Eosinophils (%) (Auto) % (0.0-3.0) Basophils (%) (Auto) % (0.0-2.0) Differential Total Cells Counted 100 Neutrophils % (Manual) 76 % (45-75) H Lymphocytes % (Manual) 10 % (20-45) L Monocytes % (Manual) 9 % (1-10) Eosinophils % (Manual) 4 % (0-3) H Basophils % (Manual) 1 % (0-2) Band Neutrophils 0 % (0-8) Platelet Estimate Decreased L Platelet Morphology Normal Anisocytosis 1+ Sodium Level 147 MMOL/L (136-145) H Potassium Level 3.0 MMOL/L (3.5-5.1) L Chloride Level 115 MMOL/L (98-107) H Carbon Dioxide Level 25 MMOL/L (21-32) Anion Gap 7 mmol/L (5-15) Blood Urea Nitrogen 7 mg/dL (7-18) Creatinine 1.0 MG/DL (0.55-1.30) Estimat Glomerular Filtration Rate > 60 mL/min (>60) Glucose Level 89 MG/DL (74-106) Calcium Level 8.4 MG/DL (8.5-10.1) L Magnesium Level 1.8 MG/DL (1.8-2.4) Total Bilirubin 1.6 MG/DL (0.2-1.0) H Direct Bilirubin 1.1 MG/DL (0.0-0.3) H Aspartate Amino Transf (AST/SGOT) 95 U/L (15-37) H Alanine Aminotransferase (ALT/SGPT) 26 U/L (12-78) Alkaline Phosphatase 96 U/L (46-116) Ammonia 34 umol/L (11-32) H Total Protein 6.9 G/DL (6.4-8.2) Albumin 0.9 G/DL (3.4-5.0) L Globulin 6.0 g/dL Albumin/Globulin Ratio 0.1 (1.0-2.7) L Plan Problems: (1) Abdominal distension Assessment & Plan: Abdominal distention from ascites as he has significant liver dysfunction para with 8L fluid without malignant cells micro with bacteremia labs stable and improving . exam stable Findings: There is ascites fluid present. Gallbladder is unremarkable, without stones, wall thickening, nor pericholecystic fluid. Sonographic Washington's sign is negative. Common bile duct measures 3 mm in diameter. No intrahepatic biliary ductal dilatation. Liver demonstrates slightly increased echogenicity. No focal abnormality. It demonstrates surface nodularity. Portal vein and hepatic veins are patent. Pancreas is obscured by bowel gas. Spleen is unremarkable. Left kidney measures 11.4 cm in length. Right kidney measures 11.1 cm length. Both kidneys demonstrate normal echogenicity. There is no hydronephrosis. No focal abnormality . Abdominal aorta is partially obscured by bowel gas, visualized portions are non-aneurysmal . Impression: Hepatic surface nodularity, suggestive of cirrhosis. Ascites Negative for gallstones or dilated bile ducts (2) Facial trauma Assessment & Plan: Findings: No acute intracranial hemorrhage or edema. No mass effect or midline shift. Normal hardy-white differentiation. Slightly prominent for age ventricles and extra axial CSF spaces. Mild periventricular deep white matter low-attenuation consistent with chronic microvascular ischemic changes noted Questionable minimal left supraorbital scalp contusion. Intact calvarium. Visualized orbits and sinuses are unremarkable. The mastoids are clear. unknown if fall or assault lip with dry blood and in medial aspect small oozing - resolved apply dressing prn thank you Alvin James Jul 11, 2019 12:07
--- NOTE | 2019-07-11 12:18 | GI Progress Note ---
Assessment/Plan Problems: (1) Ascites ICD Codes: R18.8 - Other ascites SNOMED: 882617124 (2) Cirrhosis ICD Codes: K74.60 - Unspecified cirrhosis of liver SNOMED: 91638251 (3) Abdominal distension ICD Codes: R14.0 - Abdominal distension (gaseous) SNOMED: 52565134 (4) Acute alcoholic intoxication ICD Codes: F10.929 - Alcohol use, unspecified with intoxication, unspecified SNOMED: 22413111, 6724793 Qualifiers: Qualified Codes: F10.929 - Alcohol use, unspecified with intoxication, unspecified (5) Anemia ICD Codes: D64.9 - Anemia, unspecified SNOMED: 525015639 Qualifiers: Qualified Codes: D64.9 - Anemia, unspecified Status: progressing, unchanged Status Narrative Discussed with Dr. Guzman. Assessment/Plan Assessment (1) Anemia (2) Acute alcoholic intoxication (3) Cirrhosis (4) Ascites (5) Encephalopathy / delirium (6) abnormal lytes Recommendations vit k given fu stool ob no obvious GIB per nurses fu labs protonix eating better today, continue to push PO psych in put appreciated on librium now hold GT or NGT plans for now The patient was seen and examined at bedside and all new and available data was reviewed in the patients chart. I agree with the above findings, impression and plan. (Patient seen earlier today. Signature stamp does not reflect patient encounter time.). - Robert Guzman MD Subjective Subjective limited Objective Last 24 Hour Vital Signs Date Time Temp Pulse Resp B/P (MAP) Pulse Ox O2 Delivery O2 Flow Rate FiO2 07/11/19 09:00 Room Air 07/11/19 08:00 97.0 78 21 105/63 (77) 96 07/11/19 04:00 78 07/11/19 04:00 98.9 79 21 127/69 (88) 96 07/11/19 00:00 96.5 78 18 111/62 (78) 98 07/11/19 00:00 Room Air 07/11/19 00:00 77 07/10/19 20:00 96.8 80 20 123/70 (87) 96 07/10/19 20:00 80 07/10/19 20:00 Room Air 07/10/19 16:00 75 07/10/19 16:00 Room Air 07/10/19 16:00 96.0 84 20 103/71 (82) 94 Intake and Output 07/10/19 07/11/19 19:00 07:00 Intake Total 1102.5 ml 385.0 ml Output Total 300 ml Balance 802.5 ml 385.0 ml Intake Oral 820 ml IV Total 282.5 ml 385.0 ml Output Urine Total 300 ml # Voids 2 # Bowel Movements 2 2 Laboratory Tests Test 07/11/19 05:39 White Blood Count 5.5 K/UL (4.8-10.8) Red Blood Count 3.34 M/UL (4.70-6.10) L Hemoglobin 9.1 G/DL (14.2-18.0) L Hematocrit 31.4 % (42.0-52.0) L Mean Corpuscular Volume 94 FL (80-99) Mean Corpuscular Hemoglobin 27.2 PG (27.0-31.0) Mean Corpuscular Hemoglobin Concent 28.9 G/DL (32.0-36.0) L Red Cell Distribution Width 24.4 % (11.6-14.8) H Platelet Count 82 K/UL (150-450) L Mean Platelet Volume 7.3 FL (6.5-10.1) Neutrophils (%) (Auto) % (45.0-75.0) Lymphocytes (%) (Auto) % (20.0-45.0) Monocytes (%) (Auto) % (1.0-10.0) Eosinophils (%) (Auto) % (0.0-3.0) Basophils (%) (Auto) % (0.0-2.0) Differential Total Cells Counted 100 Neutrophils % (Manual) 76 % (45-75) H Lymphocytes % (Manual) 10 % (20-45) L Monocytes % (Manual) 9 % (1-10) Eosinophils % (Manual) 4 % (0-3) H Basophils % (Manual) 1 % (0-2) Band Neutrophils 0 % (0-8) Platelet Estimate Decreased L Platelet Morphology Normal Anisocytosis 1+ Sodium Level 147 MMOL/L (136-145) H Potassium Level 3.0 MMOL/L (3.5-5.1) L Chloride Level 115 MMOL/L (98-107) H Carbon Dioxide Level 25 MMOL/L (21-32) Anion Gap 7 mmol/L (5-15) Blood Urea Nitrogen 7 mg/dL (7-18) Creatinine 1.0 MG/DL (0.55-1.30) Estimat Glomerular Filtration Rate > 60 mL/min (>60) Glucose Level 89 MG/DL (74-106) Calcium Level 8.4 MG/DL (8.5-10.1) L Magnesium Level 1.8 MG/DL (1.8-2.4) Total Bilirubin 1.6 MG/DL (0.2-1.0) H Direct Bilirubin 1.1 MG/DL (0.0-0.3) H Aspartate Amino Transf (AST/SGOT) 95 U/L (15-37) H Alanine Aminotransferase (ALT/SGPT) 26 U/L (12-78) Alkaline Phosphatase 96 U/L (46-116) Ammonia 34 umol/L (11-32) H Total Protein 6.9 G/DL (6.4-8.2) Albumin 0.9 G/DL (3.4-5.0) L Globulin 6.0 g/dL Albumin/Globulin Ratio 0.1 (1.0-2.7) L Height (Feet): 5 Height (Inches): 8.00 Weight (Pounds): 157 Maryam Castellanos NP Jul 11, 2019 12:18
--- NOTE | 2019-07-11 14:28 | Infectious Diseases Prog Note ---
Assessment/Plan Assessment/Plan A) 1) mrsa bacteremia, pna, sepsis, fevers 2) liver cirrhosis 3) anemia 4) allergies - nkda 5) hx substance abuse 6) d/w RN, -nc 7) d/w RN P) 1) vancomycin and zosyn - day # 5 abx 2) check labs, chest-x-ray, monitor labs 3) s/p tx for head lice 4) surveillance blood cultures negative Subjective Constitutional: Denies: fever HEENT: Denies: congestion Respiratory: Denies: shortness of breath Cardiovascular: Denies: chest pain Gastrointestinal/Abdominal: Denies: nausea, vomiting, diarrhea Genitourinary: Denies: dysuria Neurologic: Denies: headache Psychiatric: Denies: depression Skin: Denies: rash Hematologic: Denies: bleeding Musculoskeletal: Denies: pain Allergies: Coded Allergies: No Known Allergies (Unverified , 07/03/19) Objective Vital Signs Last 24 Hour Vital Signs Date Time Temp Pulse Resp B/P (MAP) Pulse Ox O2 Delivery O2 Flow Rate FiO2 07/11/19 09:00 Room Air 07/11/19 08:00 97.0 78 21 105/63 (77) 96 07/11/19 04:00 78 07/11/19 04:00 98.9 79 21 127/69 (88) 96 07/11/19 00:00 96.5 78 18 111/62 (78) 98 07/11/19 00:00 Room Air 07/11/19 00:00 77 07/10/19 20:00 96.8 80 20 123/70 (87) 96 07/10/19 20:00 80 07/10/19 20:00 Room Air 07/10/19 16:00 75 07/10/19 16:00 Room Air 07/10/19 16:00 96.0 84 20 103/71 (82) 94 Height (Feet): 5 Height (Inches): 8.00 Weight (Pounds): 157 General Appearance: no acute distress HEENT: normocephalic, atraumatic, anicteric, mucous membranes moist Respiratory/Chest: no accessory muscle use, rhonchi - bilaterally, rhonchi - left Cardiovascular: normal rate, regular rhythm Abdomen: normal bowel sounds, soft, non tender, no organomegaly, non distended Genitourinary: other - no fley Extremities: no cyanosis Skin: no rash 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 There may be some patchy retrocardiac consolidation as well which is unchanged. The left costophrenic angle remains blunted. The heart is borderline enlarged Impression: Development of bilateral interstitial infiltrates versus edema, over 3 days. Persistent patchy retrocardiac consolidation and possible small left pleural effusion Microbiology Date/Time Source Procedure Growth Status 07/09/19 12:40 Blood Blood Culture - Preliminary NO GROWTH AFTER 24 HOURS Resulted 07/09/19 12:35 Blood Blood Culture - Preliminary NO GROWTH AFTER 24 HOURS Resulted Laboratory Tests Test 07/11/19 05:39 White Blood Count 5.5 K/UL (4.8-10.8) Red Blood Count 3.34 M/UL (4.70-6.10) L Hemoglobin 9.1 G/DL (14.2-18.0) L Hematocrit 31.4 % (42.0-52.0) L Mean Corpuscular Volume 94 FL (80-99) Mean Corpuscular Hemoglobin 27.2 PG (27.0-31.0) Mean Corpuscular Hemoglobin Concent 28.9 G/DL (32.0-36.0) L Red Cell Distribution Width 24.4 % (11.6-14.8) H Platelet Count 82 K/UL (150-450) L Mean Platelet Volume 7.3 FL (6.5-10.1) Neutrophils (%) (Auto) % (45.0-75.0) Lymphocytes (%) (Auto) % (20.0-45.0) Monocytes (%) (Auto) % (1.0-10.0) Eosinophils (%) (Auto) % (0.0-3.0) Basophils (%) (Auto) % (0.0-2.0) Differential Total Cells Counted 100 Neutrophils % (Manual) 76 % (45-75) H Lymphocytes % (Manual) 10 % (20-45) L Monocytes % (Manual) 9 % (1-10) Eosinophils % (Manual) 4 % (0-3) H Basophils % (Manual) 1 % (0-2) Band Neutrophils 0 % (0-8) Platelet Estimate Decreased L Platelet Morphology Normal Anisocytosis 1+ Sodium Level 147 MMOL/L (136-145) H Potassium Level 3.0 MMOL/L (3.5-5.1) L Chloride Level 115 MMOL/L (98-107) H Carbon Dioxide Level 25 MMOL/L (21-32) Anion Gap 7 mmol/L (5-15) Blood Urea Nitrogen 7 mg/dL (7-18) Creatinine 1.0 MG/DL (0.55-1.30) Estimat Glomerular Filtration Rate > 60 mL/min (>60) Glucose Level 89 MG/DL (74-106) Calcium Level 8.4 MG/DL (8.5-10.1) L Magnesium Level 1.8 MG/DL (1.8-2.4) Total Bilirubin 1.6 MG/DL (0.2-1.0) H Direct Bilirubin 1.1 MG/DL (0.0-0.3) H Aspartate Amino Transf (AST/SGOT) 95 U/L (15-37) H Alanine Aminotransferase (ALT/SGPT) 26 U/L (12-78) Alkaline Phosphatase 96 U/L (46-116) Ammonia 34 umol/L (11-32) H Total Protein 6.9 G/DL (6.4-8.2) Albumin 0.9 G/DL (3.4-5.0) L Globulin 6.0 g/dL Albumin/Globulin Ratio 0.1 (1.0-2.7) L Current Medications Medications (Trade) Dose Ordered Sig/Tanja Route PRN Reason Start Time Stop Time Status Last Admin Dose Admin Azithromycin (Zithromax) 500 mg DAILY ORAL 07/11/19 09:00 07/15/19 15:59 07/11/19 08:31 Chlordiazepoxide (Librium) 25 mg TID ORAL 07/11/19 09:00 07/12/19 13:29 07/11/19 12:53 Folic Acid (Folate) 1 mg DAILY ORAL 07/11/19 09:00 08/03/19 10:29 07/11/19 08:32 Lactulose (Cephulac) 20 gm THREE TIMES A DAY ORAL 07/11/19 09:00 08/04/19 12:59 07/11/19 12:53 Lorazepam (Ativan) 2 mg Q6H PRN ORAL For Anxiety 07/11/19 02:26 07/12/19 02:25 07/11/19 09:01 Pantoprazole (Protonix) 40 mg EVERY 12 HOURS IVP 07/11/19 09:00 08/03/19 08:59 07/11/19 08:30 Piperacillin Sod/ Tazobactam Sod 3.375 gm/Sodium Chloride 110 ml @ 27.5 mls/hr Q8HR@0000,0800,1600 IVPB 07/11/19 08:00 07/13/19 15:59 07/11/19 09:12 Rifaximin (Xifaxan) 550 mg EVERY 12 HOURS ORAL 07/11/19 09:00 07/15/19 20:59 07/11/19 08:31 Thiamine HCl (Vitamin B1) 100 mg DAILY ORAL 07/11/19 09:00 08/03/19 10:29 07/11/19 08:31 Vancomycin HCl (Vanco rx to dose) 1 ea DAILY PRN MISC . 07/11/19 09:15 08/10/19 09:14 Vancomycin HCl 750 mg/Dextrose 275 ml @ 183.333 mls/hr Q12H IVPB 07/11/19 07:00 07/15/19 18:59 07/11/19 07:10 Dionna Tee MD Jul 11, 2019 14:28
--- NOTE | 2019-07-11 14:49 | General Progress Note ---
Assessment/Plan Status: progressing, unchanged Assessment/Plan: Assessment/Plan: 48-year-old male with past medical history of ETOH abuse presented found down. #Encephalopathy likely multifactorial including hepatic encephalopathy ( elevated ammonia), as well as sepsis (new fever of 100.4, tachycardia) with bacteremia due to MSSA. #Sepsis secondary to possible SBP, decompensated liver cirrhosis, bacteremia due to MSSA - cxr shows patchy LL infiltrate -cont. vancomycin and Zosyn (07/06) -Infectious disease consult, appreciate recs and discussed. - Repeat BCx per ID # Lice - primerin treatment - Ordered to clip hair as persistent lice noted despite 2 shampoo treatment #Liver cirrhosis secondary to EtOH # ETOH withdrawal. Libirum being used. - DF 31 -MELD 15 -Abdominal ultrasound reviewed -Status post paracentesis 07/05/2019 with removal of 8 L., Follow-up diagnostic results evaluate for SBP, ordered but not done! -Albumin for BP support as needed -Supportive care - lactulose KS #Anemia, likely might multifactorial including acute blood loss anemia, anemia of chronic disease -Hematology consult, appreciate recs -Iron panel: Reviewed -Low folate: Replace -B12 within normal limits above 800 -GI consult, appreciate recs. HOLD OFF NGT for now due to risk with possible esophageal varices. PENDING EGD per GI decision. Patient is gradually waking up and eating a bit more today. MONITOR closely as he is now 7 days into the Hospital stay. #Substance abuse -Nodular liver in ultrasound suggestive of cirrhosis -Check hepatitis and HIV: hiv neg, hep pending -Social work Consult - Psyche consult, appreciate recs #Hypokalemia Replace IV 40 meq today, continue to monitor # Hypomagnesemia Replace today # Hypocalcemia - replace as needed #Dysphagia -Etiology due to agitation, likely due underlying hepatic encephalopathy vs side effect of Ativan #full code The time of my note may not reflect the time of my patient encounter. Subjective ROS Limited/Unobtainable: Yes Allergies: Coded Allergies: No Known Allergies (Unverified , 07/03/19) All Systems: reviewed and negative except above Subjective Able to tell me his name only. Moves 4 extremities. Objective Last 24 Hour Vital Signs Date Time Temp Pulse Resp B/P (MAP) Pulse Ox O2 Delivery O2 Flow Rate FiO2 07/11/19 09:00 Room Air 07/11/19 08:00 97.0 78 21 105/63 (77) 96 07/11/19 04:00 78 07/11/19 04:00 98.9 79 21 127/69 (88) 96 07/11/19 00:00 96.5 78 18 111/62 (78) 98 07/11/19 00:00 Room Air 07/11/19 00:00 77 07/10/19 20:00 96.8 80 20 123/70 (87) 96 07/10/19 20:00 80 07/10/19 20:00 Room Air 07/10/19 16:00 75 07/10/19 16:00 Room Air 07/10/19 16:00 96.0 84 20 103/71 (82) 94 Intake and Output 07/10/19 07/11/19 19:00 07:00 Intake Total 1102.5 ml 385.0 ml Output Total 300 ml Balance 802.5 ml 385.0 ml Intake Oral 820 ml IV Total 282.5 ml 385.0 ml Output Urine Total 300 ml # Voids 2 # Bowel Movements 2 2 Laboratory Tests 07/11/19 05:39: White Blood Count 5.5, Red Blood Count 3.34L, Hemoglobin 9.1L, Hematocrit 31.4L , Mean Corpuscular Volume 94, Mean Corpuscular Hemoglobin 27.2, Mean Corpuscular Hemoglobin Concent 28.9L, Red Cell Distribution Width 24.4H, Platelet Count 82L, Mean Platelet Volume 7.3, Neutrophils (%) (Auto) , Lymphocytes (%) (Auto) , Monocytes (%) (Auto) , Eosinophils (%) (Auto) , Basophils (%) (Auto) , Differential Total Cells Counted 100, Neutrophils % ( Manual) 76H, Lymphocytes % (Manual) 10L, Monocytes % (Manual) 9, Eosinophils % ( Manual) 4H, Basophils % (Manual) 1, Band Neutrophils 0, Platelet Estimate DecreasedL, Platelet Morphology Normal, Anisocytosis 1+, Sodium Level 147H, Potassium Level 3.0L, Chloride Level 115H, Carbon Dioxide Level 25, Anion Gap 7 , Blood Urea Nitrogen 7, Creatinine 1.0, Estimat Glomerular Filtration Rate > 60 , Glucose Level 89, Calcium Level 8.4L, Magnesium Level 1.8, Total Bilirubin 1.6H, Direct Bilirubin 1.1H, Aspartate Amino Transf (AST/SGOT) 95H, Alanine Aminotransferase (ALT/SGPT) 26, Alkaline Phosphatase 96, Ammonia 34H, Total Protein 6.9, Albumin 0.9L, Globulin 6.0, Albumin/Globulin Ratio 0.1L Height (Feet): 5 Height (Inches): 8.00 Weight (Pounds): 157 General Appearance: moderate distress EENT: PERRL/EOMI Neck: non-tender Cardiovascular: normal rate Respiratory/Chest: chest wall non-tender, lungs clear Abdomen: non tender, soft 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
[2019-07-11 16:00] VITALS: BP 106/67
--- NOTE | 2019-07-11 19:21 | NUR ---
HAND-OFF: Report given to ENZO ROCHA.
--- NOTE | 2019-07-11 19:22 | NUR ---
NURSE NOTES: Received patient is lethargic but arousable to shaking, lying in semi yanez's; resting comfortably. A/O x1. Primarily Albanian speaking. Denies pain at this time. No signs of acute cardiorespiratory distress noted. Checked IV site intact and flushed. No erythema, bleeding or infiltration noted. Comfort care provided. Bed at lowest position, brakes on, siderails x 3. Call light within reach. Will continue to monitor.
[2019-07-11 20:00] VITALS: BP 94/67
[2019-07-11] MEDS: [UNRECOGNIZED DRUG - OTHER] IRRIG SCH (20:09)
[2019-07-11] MEDS: LACTULOSE IRRIG SCH (20:09)
[2019-07-11] MEDS: Vancomycin 1.25gm/NS Premix IVPB SCH (20:09)
[2019-07-12] VITALS: BP 98/62
--- NOTE | 2019-07-12 03:39 | NUR ---
NURSE NOTES: Patient is resting throughout the night. No change of condition noted. Will continue to monitor.
[2019-07-12 04:00] VITALS: BP 100/67
[2019-07-12 06:30] LABS: HEMATOCRIT 30.5 % (42.0-52.0); HEMOGLOBIN 8.9 G/DL (14.2-18.0); MEAN CORPUSCULAR VOLUME 95 FL (80-99); PLATELET COUNT 92 K/UL (150-450); RED BLOOD COUNT 3.22 M/UL (4.70-6.10); RED CELL DISTRIBUTION WIDTH 24.8 % (11.6-14.8); WHITE BLOOD COUNT 6.3 K/UL (4.8-10.8)
[2019-07-12 07:00] LABS: ALANINE AMINOTRANSFERASE 32 U/L (12-78); ALBUMIN/GLOBULIN RATIO 0.2 (1.0-2.7); ALKALINE PHOSPHATASE 94 U/L (46-116); ANION GAP 7 mmol/L (5-15); ASPARTATE AMINO TRANSFERASE 104 U/L (15-37); BILIRUBIN,TOTAL 1.5 MG/DL (0.2-1.0); BLOOD UREA NITROGEN 8 mg/dL (7-18); CALCIUM 8.7 MG/DL (8.5-10.1); CARBON DIOXIDE 24 MMOL/L (21-32); CHLORIDE 117 MMOL/L (98-107); CREATININE 1.1 MG/DL (0.55-1.30); PHOSPHORUS 4.1 MG/DL (2.5-4.9); POTASSIUM 3.8 MMOL/L (3.5-5.1); SODIUM 148 MMOL/L (136-145)
--- NOTE | 2019-07-12 07:02 | NUR ---
NURSE NOTES: Per Tatyana pharmacist, OK to administer 0700 dose of Vancomycin 750 mg IV medication.
[2019-07-12 07:05] LABS: BILIRUBIN,DIRECT 0.9 MG/DL (0.0-0.3)
[2019-07-12] MEDS: Lactulose 20gm/30ml UDC ORAL SCH ×3 (07:08→15:56)
--- NOTE | 2019-07-12 07:10 | NUR ---
HAND-OFF: Report given to JOSEFINA Zamora. Patient is in stable condition. Plan of care endorsed.
[2019-07-12 08:00] VITALS: BP 145/96
[2019-07-12] MEDS: Vancomycin 750 MG in D5W 275 ML IVPB SCH ×2 (08:23→20:51)
[2019-07-12] MEDS: Azithromycin 250mg tab ORAL SCH (08:23)
[2019-07-12] MEDS: Thiamine 100mg tab ORAL SCH (08:24)
[2019-07-12] MEDS: chlordiazePOXIDE 25mg Cap ORAL SCH ×2 (08:24→13:19)
[2019-07-12] MEDS: Pantoprazole Inj IVP SCH ×2 (08:24→20:51)
--- NOTE | 2019-07-12 08:38 | NUR ---
RADIOLOGY DEPT, CHEST X-RAY DONE.-P.DYE
[2019-07-12] MEDS: Piperacillin/Tazobactam 3.375 GM in NS 110 ML IVPB SCH ×2 (10:24→16:06)
--- NOTE | 2019-07-12 10:28 | NUR ---
P.T Note: P.T evaluation completed and treatment initiated. Please refer to P.T evaluation for current functional status. Pt is generally weak and deconditioned, Lethargic and disoriented . Pt only responds to name however follows simple one step commands. Pt required MAX A X 1 to turn and complete supine to/from sitting. Pt able to sit at the EOB with MOD support needed due to patient excessively leans and fall backward of not given tactile and verbal cues. Pt is too weak to stand. Not safe for discharge at this time. Pt will be seen for skilled P.T to increase his strength , balance and endurance to increase his mobility independence and safety for return to PLOF during stay.
[2019-07-12] MEDS ORDERED: NS 275ml ONE (10:39)
--- NOTE | 2019-07-12 11:22 | Diagnostic Imaging Report ---
APPROVED REPORT CPT Code: 16029 Present Symptoms Comments: Screening SCD's BILATERAL: Imaging reveals a patent deep venous system bilaterally. There is no evidence of thrombus within the femoral, popliteal or tibial segments. The greater saphenous veins are also within normal limits. Doppler indicates normal spontaneous flow within these segments.
--- NOTE | 2019-07-12 11:44 | GI Progress Note ---
Assessment/Plan Problems: (1) Ascites ICD Codes: R18.8 - Other ascites SNOMED: 789496106 (2) Cirrhosis ICD Codes: K74.60 - Unspecified cirrhosis of liver SNOMED: 52469556 (3) Abdominal distension ICD Codes: R14.0 - Abdominal distension (gaseous) SNOMED: 77746715 (4) Acute alcoholic intoxication ICD Codes: F10.929 - Alcohol use, unspecified with intoxication, unspecified SNOMED: 21699672, 2415126 Qualifiers: Qualified Codes: F10.929 - Alcohol use, unspecified with intoxication, unspecified (5) Anemia ICD Codes: D64.9 - Anemia, unspecified SNOMED: 187318927 Qualifiers: Qualified Codes: D64.9 - Anemia, unspecified Status: unchanged Status Narrative Discussed with Dr. Guzman. Assessment/Plan Assessment (1) Anemia (2) Acute alcoholic intoxication (3) Cirrhosis (4) Ascites (5) Encephalopathy / delirium (6) abnormal lytes tolerating diet no obvious GIB per nurses Recommendations paracentesis ordered vit k given fu stool ob protonix eating better today, continue to push PO on librium now hold GT or NGT plans for now The patient was seen and examined at bedside and all new and available data was reviewed in the patients chart. I agree with the above findings, impression and plan. (Patient seen earlier today. Signature stamp does not reflect patient encounter time.). - Robert Guzman MD Subjective Subjective limited Objective Last 24 Hour Vital Signs Date Time Temp Pulse Resp B/P (MAP) Pulse Ox O2 Delivery O2 Flow Rate FiO2 07/12/19 09:00 Room Air 07/12/19 08:00 97.4 116 20 145/96 (112) 97 07/12/19 04:00 98.2 90 21 100/67 (78) 99 07/12/19 04:00 87 07/12/19 00:00 86 07/12/19 00:00 98.2 87 19 98/62 (74) 96 07/11/19 21:00 Room Air 07/11/19 20:00 98.9 85 20 94/67 (76) 98 07/11/19 20:00 81 07/11/19 16:00 76 07/11/19 16:00 97.5 77 22 106/67 (80) 95 07/11/19 12:00 83 07/11/19 12:00 97.0 87 22 147/52 (83) 98 Intake and Output 07/11/19 07/12/19 19:00 07:00 Intake Total 100 ml 505.0 ml Output Total 8300 ml Balance -8200 ml 505.0 ml Intake Oral 100 ml 120 ml IV Total 385.0 ml Output Urine Total 300 ml Other 8000 ml # Voids 2 2 # Bowel Movements 2 2 Laboratory Tests Test 07/12/19 06:00 White Blood Count 6.3 K/UL (4.8-10.8) Red Blood Count 3.22 M/UL (4.70-6.10) L Hemoglobin 8.9 G/DL (14.2-18.0) L Hematocrit 30.5 % (42.0-52.0) L Mean Corpuscular Volume 95 FL (80-99) Mean Corpuscular Hemoglobin 27.8 PG (27.0-31.0) Mean Corpuscular Hemoglobin Concent 29.3 G/DL (32.0-36.0) L Red Cell Distribution Width 24.8 % (11.6-14.8) H Platelet Count 92 K/UL (150-450) L Mean Platelet Volume 7.9 FL (6.5-10.1) Neutrophils (%) (Auto) % (45.0-75.0) Lymphocytes (%) (Auto) % (20.0-45.0) Monocytes (%) (Auto) % (1.0-10.0) Eosinophils (%) (Auto) % (0.0-3.0) Basophils (%) (Auto) % (0.0-2.0) Differential Total Cells Counted 100 Neutrophils % (Manual) 64 % (45-75) Lymphocytes % (Manual) 23 % (20-45) Monocytes % (Manual) 12 % (1-10) H Eosinophils % (Manual) 1 % (0-3) Basophils % (Manual) 0 % (0-2) Band Neutrophils 0 % (0-8) Platelet Estimate Decreased L Platelet Morphology Normal Hypochromasia 1+ Anisocytosis 2+ Sodium Level 148 MMOL/L (136-145) H Potassium Level 3.8 MMOL/L (3.5-5.1) Chloride Level 117 MMOL/L (98-107) H Carbon Dioxide Level 24 MMOL/L (21-32) Anion Gap 7 mmol/L (5-15) Blood Urea Nitrogen 8 mg/dL (7-18) Creatinine 1.1 MG/DL (0.55-1.30) Estimat Glomerular Filtration Rate > 60 mL/min (>60) Glucose Level 81 MG/DL (74-106) Calcium Level 8.7 MG/DL (8.5-10.1) Phosphorus Level 4.1 MG/DL (2.5-4.9) Magnesium Level 1.6 MG/DL (1.8-2.4) L Total Bilirubin 1.5 MG/DL (0.2-1.0) H Direct Bilirubin 0.9 MG/DL (0.0-0.3) H Aspartate Amino Transf (AST/SGOT) 104 U/L (15-37) H Alanine Aminotransferase (ALT/SGPT) 32 U/L (12-78) Alkaline Phosphatase 94 U/L (46-116) Total Protein 7.1 G/DL (6.4-8.2) Albumin 1.0 G/DL (3.4-5.0) L Globulin 6.1 g/dL Albumin/Globulin Ratio 0.2 (1.0-2.7) L Vancomycin Level Trough 20.3 ug/mL (5.0-12.0) H Height (Feet): 5 Height (Inches): 8.00 Weight (Pounds): 157 General Appearance: no apparent distress Cardiovascular: normal rate Respiratory/Chest: normal breath sounds, no respiratory distress Abdominal Exam: normal bowel sounds, non tender, soft, distended Extremities: non-tender Maryam Castellanos [employer] Jul 12, 2019 11:43
[2019-07-12 12:00] VITALS: BP 101/68
--- NOTE | 2019-07-12 12:00 | NUR ---
NURSE NOTES: PATIENT HAVE HAD DIARRHEA X 3 SINCE MORNING. PATIENT TOOK HIS BREAKFAST 90 % IN THE MORNING. MG 1.6>>>MAGNESIUM SULFATE ADMIN 2 GM IVPB ORDERED. Patient off from [facility] for paracentesis @ 1410pm.
--- NOTE | 2019-07-12 13:07 | NUR ---
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 97.4 HR 119 RR 20 B/P 145/76 NA 148 IS: MAGNESIUM SULFATE IV ZOSYN IV VANCO IV ZITHROMAX LACTULOSE PARACENTESIS TODAY TELE STATUS
--- NOTE | 2019-07-12 13:29 | Diagnostic Imaging Report ---
Indication: Dyspnea Comparison: 07/09/2019 A single view chest radiograph was obtained. Findings: Basal atelectasis demonstrated with low lung volumes. Heart size is stable and within normal limits. IMPRESSION: No change compared to the previous exam. Basal atelectasis
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
--- NOTE | 2019-07-12 15:15 | General Progress Note ---
Assessment/Plan Status: unchanged Assessment/Plan: Assessment/Plan: 48-year-old male with past medical history of ETOH abuse presented found down. #Encephalopathy likely multifactorial including hepatic encephalopathy ( elevated ammonia), as well as sepsis with bacteremia due to MSSA. #Sepsis secondary to bacteremia due to MSSA - cxr shows patchy LL infiltrate -cont. vancomycin and Zosyn (07/06) -Infectious disease consult, appreciate recs and discussed. - Repeat BCx per ID # Lice - primerin treatment - Ordered to clip hair as persistent lice noted despite 2 shampoo treatment #Liver cirrhosis secondary to EtOH # ETOH withdrawal. Libirum being used. - DF 31 -MELD 15 -Abdominal ultrasound reviewed -Status post paracentesis 07/05/2019 with removal of 8 L., Follow-up diagnostic results evaluate for SBP, ordered but not done! -Albumin for BP support as needed -Supportive care - lactulose ME - Repeat paracentesis requested by GI today ( pending ) #Anemia, likely might multifactorial including acute blood loss anemia, anemia of chronic disease -Hematology consult, appreciate recs -Iron panel: Reviewed -Low folate: Replace -B12 within normal limits above 800 -GI consult, appreciate recs. HOLD OFF NGT for now due to risk with possible esophageal varices. PENDING EGD per GI decision ( no plans as of today). Patient is gradually waking up and eating is still a problem. MONITOR closely as he is now 9 days into the Hospital stay. #Substance abuse -Nodular liver in ultrasound suggestive of cirrhosis -Check hepatitis and HIV: hiv neg, hep pending -Social work Consult - Psyche consult, appreciate recs #Hypokalemia Replace as needed # Hypomagnesemia Replace today # Hypocalcemia - replace as needed #Dysphagia -Etiology due to agitation, likely due underlying hepatic encephalopathy vs side effect of Ativan #full code # Disposition SW and CM follow up needed. Homeless. The time of my note may not reflect the time of my patient encounter. Subjective Allergies: Coded Allergies: No Known Allergies (Unverified , 07/03/19) All Systems: reviewed and negative except above Subjective Able to tell me his name only. Moves 4 extremities. Somnolent Objective Last 24 Hour Vital Signs Date Time Temp Pulse Resp B/P (MAP) Pulse Ox O2 Delivery O2 Flow Rate FiO2 07/12/19 09:00 Room Air 07/12/19 08:00 97.4 116 20 145/96 (112) 97 07/12/19 04:00 98.2 90 21 100/67 (78) 99 07/12/19 04:00 87 07/12/19 00:00 86 07/12/19 00:00 98.2 87 19 98/62 (74) 96 07/11/19 21:00 Room Air 07/11/19 20:00 98.9 85 20 94/67 (76) 98 07/11/19 20:00 81 07/11/19 16:00 76 07/11/19 16:00 97.5 77 22 106/67 (80) 95 Intake and Output 07/11/19 07/12/19 19:00 07:00 Intake Total 100 ml 505.0 ml Output Total 8300 ml Balance -8200 ml 505.0 ml Intake Oral 100 ml 120 ml IV Total 385.0 ml Output Urine Total 300 ml Other 8000 ml # Voids 2 2 # Bowel Movements 2 2 Laboratory Tests 07/12/19 06:00: White Blood Count 6.3, Red Blood Count 3.22L, Hemoglobin 8.9L, Hematocrit 30.5L , Mean Corpuscular Volume 95, Mean Corpuscular Hemoglobin 27.8, Mean Corpuscular Hemoglobin Concent 29.3L, Red Cell Distribution Width 24.8H, Platelet Count 92L, Mean Platelet Volume 7.9, Neutrophils (%) (Auto) , Lymphocytes (%) (Auto) , Monocytes (%) (Auto) , Eosinophils (%) (Auto) , Basophils (%) (Auto) , Differential Total Cells Counted 100, Neutrophils % ( Manual) 64, Lymphocytes % (Manual) 23, Monocytes % (Manual) 12H, Eosinophils % ( Manual) 1, Basophils % (Manual) 0, Band Neutrophils 0, Platelet Estimate DecreasedL, Platelet Morphology Normal, Hypochromasia 1+, Anisocytosis 2+, Sodium Level 148H, Potassium Level 3.8, Chloride Level 117H, Carbon Dioxide Level 24, Anion Gap 7, Blood Urea Nitrogen 8, Creatinine 1.1, Estimat Glomerular Filtration Rate > 60, Glucose Level 81, Calcium Level 8.7, Phosphorus Level 4.1, Magnesium Level 1.6L, Total Bilirubin 1.5H, Direct Bilirubin 0.9H, Aspartate Amino Transf (AST/SGOT) 104H, Alanine Aminotransferase (ALT/SGPT) 32, Alkaline Phosphatase 94, Total Protein 7.1, Albumin 1.0L, Globulin 6.1, Albumin/Globulin Ratio 0.2L, Vancomycin Level Trough 20.3H Height (Feet): 5 Height (Inches): 8.00 Weight (Pounds): 157 General Appearance: moderate distress EENT: PERRL/EOMI, normal ENT inspection Cardiovascular: normal rate Respiratory/Chest: lungs clear Abdomen: distended, hepatomegaly Edema: trace edema 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
--- NOTE | 2019-07-12 15:53 | Hematology/Onc Progress Note ---
Assessment/Plan Assessment/Plan ASSESSMENT AND RECS # Anemia of iron deficiency in addition to suppression from etoh abuse and cirrhosis of liver --> Anemia workup has been ordered, rule out gi bleed --> aid noted --> No evidence of hemolysis is noted, peripheral smear has been reviewed. --> Hgb goal >7. Transfuse prn. --> Hgb trend: 4.2-->7.1-->7.6 --> 7.6-->7.7-->8.9-->9.1-->8.9 --> IRON IV 200mg stat ordered x 1dose --> Medications have been reviewed --> stool ob negative --> bone marrow biopsy is not indicated given the other more likely causes # Thrombocytopenia - secondary to liver cirrhosis --> Hep panel and HIV ordered - both negative --> US abd to evaluate for cirrhosis and hsm ordered - Hepatic surface nodularity, suggestive of cirrhosis. Ascites --> Peripheral smear ordered to evaluate for blasts /schistocytes and none significant noted --> abx and other meds have been reviewed --> ok for ppx if plt >50k w/ either heparin or lovenox --> Transfuse if Plt < 20k and fever, or if Plt < 10k without fever --> plt trend 90-->92k-->82-->92k # Coagulopathy due to liver cirrhosis secondary to Etoh --> GI is following, appreciate rcs --> Abdominal ultrasound reviewed --> Supportive care --> lactulose prophylactic # Substance abuse --> psych eval # Hypokalemia --> Replace, continue to monitor # Hypocalcemia --> replete Ca++ prn # Cirrhosis of the liver The timing of this note does not necessarily reflect the time of the patient was seen. GREATLY APPRECIATE CONSULTATION. Subjective Allergies: Coded Allergies: No Known Allergies (Unverified , 07/03/19) Subjective 07/05: no fevers, chills or night sweats noted, on iv iron has been started, on benzo 07/07: extremely agitated overnight, climbin out of bed, on cristina taper, h/h low 07/08: remains on abx, no f/c, no bleeding is noted, no changes 07/09: paracentesis negative for malignant cells, cxr and labs reviewed 07/10: no acute distress, still drowsy, has been attempting to get out of bed 07/11: transferred from [facility] to tele, stool ob negative, h/h stable 07/12: imaging reviewed, on abx, us paracentesis, no distress Objective Objective Current Medications Medications (Trade) Dose Ordered Sig/Tanja Route PRN Reason Start Time Stop Time Status Last Admin Dose Admin Azithromycin (Zithromax) 500 mg DAILY ORAL 07/11/19 09:00 07/15/19 15:59 07/12/19 08:23 Folic Acid (Folate) 1 mg DAILY ORAL 07/11/19 09:00 08/03/19 10:29 07/12/19 08:23 Lactulose (Cephulac) 20 gm THREE TIMES A DAY ORAL 07/11/19 09:00 08/04/19 12:59 07/11/19 16:59 Pantoprazole (Protonix) 40 mg EVERY 12 HOURS IVP 07/11/19 09:00 08/03/19 08:59 07/12/19 08:24 Piperacillin Sod/ Tazobactam Sod 3.375 gm/Sodium Chloride 110 ml @ 27.5 mls/hr Q8HR@0000,0800,1600 IVPB 07/11/19 08:00 07/13/19 15:59 07/12/19 10:24 Rifaximin (Xifaxan) 550 mg EVERY 12 HOURS ORAL 07/11/19 09:00 07/15/19 20:59 07/12/19 08:23 Thiamine HCl (Vitamin B1) 100 mg DAILY ORAL 07/11/19 09:00 08/03/19 10:29 07/12/19 08:24 Vancomycin HCl (Vanco rx to dose) 1 ea DAILY PRN MISC . 07/11/19 09:15 08/10/19 09:14 Vancomycin HCl 750 mg/Dextrose 275 ml @ 183.333 mls/hr Q12H IVPB 07/11/19 07:00 07/15/19 18:59 07/12/19 08:23 Last 24 Hour Vital Signs Date Time Temp Pulse Resp B/P (MAP) Pulse Ox O2 Delivery O2 Flow Rate FiO2 07/12/19 09:00 Room Air 07/12/19 08:00 97.4 116 20 145/96 (112) 97 07/12/19 04:00 98.2 90 21 100/67 (78) 99 07/12/19 04:00 87 07/12/19 00:00 86 07/12/19 00:00 98.2 87 19 98/62 (74) 96 07/11/19 21:00 Room Air 07/11/19 20:00 98.9 85 20 94/67 (76) 98 07/11/19 20:00 81 07/11/19 16:00 76 07/11/19 16:00 97.5 77 22 106/67 (80) 95 07/11/19 12:00 83 07/11/19 12:00 97.0 87 22 147/52 (83) 98 07/11/19 09:00 Room Air 07/11/19 08:00 97.0 78 21 105/63 (77) 96 07/11/19 08:00 80 07/11/19 04:00 78 07/11/19 04:00 98.9 79 21 127/69 (88) 96 07/11/19 00:00 96.5 78 18 111/62 (78) 98 07/11/19 00:00 Room Air 07/11/19 00:00 77 07/10/19 20:00 96.8 80 20 123/70 (87) 96 07/10/19 20:00 80 07/10/19 20:00 Room Air 07/10/19 16:00 75 07/10/19 16:00 Room Air 07/10/19 16:00 96.0 84 20 103/71 (82) 94 Intake and Output 07/11/19 07/12/19 19:00 07:00 Intake Total 100 ml 505.0 ml Output Total 8300 ml Balance -8200 ml 505.0 ml Intake Oral 100 ml 120 ml IV Total 385.0 ml Output Urine Total 300 ml Other 8000 ml # Voids 2 2 # Bowel Movements 2 2 Labs Test 07/10/19 05:10 07/10/19 06:50 07/11/19 05:39 07/12/19 06:00 Stool Occult Blood Negative (NEGATIVE) White Blood Count 6.1 K/UL (4.8-10.8) 5.5 K/UL (4.8-10.8) 6.3 K/UL (4.8-10.8) Red Blood Count 3.25 M/UL (4.70-6.10) 3.34 M/UL (4.70-6.10) 3.22 M/UL (4.70-6.10) Hemoglobin 8.9 G/DL (14.2-18.0) 9.1 G/DL (14.2-18.0) 8.9 G/DL (14.2-18.0) Hematocrit 30.6 % (42.0-52.0) 31.4 % (42.0-52.0) 30.5 % (42.0-52.0) Mean Corpuscular Volume 94 FL (80-99) 94 FL (80-99) 95 FL (80-99) Mean Corpuscular Hemoglobin 27.2 PG (27.0-31.0) 27.2 PG (27.0-31.0) 27.8 PG (27.0-31.0) Mean Corpuscular Hemoglobin Concent 28.9 G/DL (32.0-36.0) 28.9 G/DL (32.0-36.0) 29.3 G/DL (32.0-36.0) Red Cell Distribution Width 24.6 % (11.6-14.8) 24.4 % (11.6-14.8) 24.8 % (11.6-14.8) Platelet Count 92 K/UL (150-450) 82 K/UL (150-450) 92 K/UL (150-450) Mean Platelet Volume 7.5 FL (6.5-10.1) 7.3 FL (6.5-10.1) 7.9 FL (6.5-10.1) Neutrophils (%) (Auto) % (45.0-75.0) % (45.0-75.0) % (45.0-75.0) Lymphocytes (%) (Auto) % (20.0-45.0) % (20.0-45.0) % (20.0-45.0) Monocytes (%) (Auto) % (1.0-10.0) % (1.0-10.0) % (1.0-10.0) Eosinophils (%) (Auto) % (0.0-3.0) % (0.0-3.0) % (0.0-3.0) Basophils (%) (Auto) % (0.0-2.0) % (0.0-2.0) % (0.0-2.0) Differential Total Cells Counted 100 100 100 Neutrophils % (Manual) 85 % (45-75) 76 % (45-75) 64 % (45-75) Lymphocytes % (Manual) 6 % (20-45) 10 % (20-45) 23 % (20-45) Monocytes % (Manual) 8 % (1-10) 9 % (1-10) 12 % (1-10) Eosinophils % (Manual) 1 % (0-3) 4 % (0-3) 1 % (0-3) Basophils % (Manual) 0 % (0-2) 1 % (0-2) 0 % (0-2) Band Neutrophils 0 % (0-8) 0 % (0-8) 0 % (0-8) Smudge Cells 1+ Platelet Estimate Decreased Decreased Decreased Platelet Morphology Normal Normal Normal Anisocytosis 2+ 1+ 2+ Target Cells 1+ Prothrombin Time 17.3 SEC (9.30-11.50) Prothromb Time International Ratio 1.7 (0.9-1.1) Activated Partial Thromboplast Time 38 SEC (23-33) Sodium Level 147 MMOL/L (136-145) 147 MMOL/L (136-145) 148 MMOL/L (136-145) Potassium Level 3.2 MMOL/L (3.5-5.1) 3.0 MMOL/L (3.5-5.1) 3.8 MMOL/L (3.5-5.1) Chloride Level 115 MMOL/L (98-107) 115 MMOL/L (98-107) 117 MMOL/L (98-107) Carbon Dioxide Level 25 MMOL/L (21-32) 25 MMOL/L (21-32) 24 MMOL/L (21-32) Anion Gap 7 mmol/L (5-15) 7 mmol/L (5-15) 7 mmol/L (5-15) Blood Urea Nitrogen 7 mg/dL (7-18) 7 mg/dL (7-18) 8 mg/dL (7-18) Creatinine 1.0 MG/DL (0.55-1.30) 1.0 MG/DL (0.55-1.30) 1.1 MG/DL (0.55-1.30) Estimat Glomerular Filtration Rate > 60 mL/min (>60) > 60 mL/min (>60) > 60 mL/min (>60) Glucose Level 94 MG/DL (74-106) 89 MG/DL (74-106) 81 MG/DL (74-106) Calcium Level 8.2 MG/DL (8.5-10.1) 8.4 MG/DL (8.5-10.1) 8.7 MG/DL (8.5-10.1) Magnesium Level 1.6 MG/DL (1.8-2.4) 1.8 MG/DL (1.8-2.4) 1.6 MG/DL (1.8-2.4) Total Bilirubin 1.7 MG/DL (0.2-1.0) 1.6 MG/DL (0.2-1.0) 1.5 MG/DL (0.2-1.0) Direct Bilirubin 1.2 MG/DL (0.0-0.3) 1.1 MG/DL (0.0-0.3) 0.9 MG/DL (0.0-0.3) Aspartate Amino Transf (AST/SGOT) 85 U/L (15-37) 95 U/L (15-37) 104 U/L (15-37) Alanine Aminotransferase (ALT/SGPT) 23 U/L (12-78) 26 U/L (12-78) 32 U/L (12-78) Alkaline Phosphatase 95 U/L (46-116) 96 U/L (46-116) 94 U/L (46-116) Ammonia 28 umol/L (11-32) 34 umol/L (11-32) Total Protein 7.2 G/DL (6.4-8.2) 6.9 G/DL (6.4-8.2) 7.1 G/DL (6.4-8.2) Albumin 1.0 G/DL (3.4-5.0) 0.9 G/DL (3.4-5.0) 1.0 G/DL (3.4-5.0) Globulin 6.2 g/dL 6.0 g/dL 6.1 g/dL Albumin/Globulin Ratio 0.2 (1.0-2.7) 0.1 (1.0-2.7) 0.2 (1.0-2.7) Vancomycin Level Trough 29.5 ug/mL (5.0-12.0) 20.3 ug/mL (5.0-12.0) Hypochromasia 1+ Phosphorus Level 4.1 MG/DL (2.5-4.9) Height (Feet): 5 Height (Inches): 8.00 Weight (Pounds): 157 Objective Physical Exam: Vitals: reviewed General Appearance: NAD HEENT: normocephalic, atraumatic Neck: non-tender, normal alignment Respiratory/Chest: normal breath sounds bilaterally Cardiovascular/Chest: normal peripheral pulses, normal rate Abdomen: normal bowel sounds, soft, nontender +++ ascites Avery Guo MD Jul 12, 2019 15:53
[2019-07-12 16:00] VITALS: BP 102/65
--- NOTE | 2019-07-12 19:40 | NUR ---
HAND-OFF: Report given to LILIA ROCHA.
--- NOTE | 2019-07-12 19:41 | NUR ---
NURSE NOTES: Received report from JOSEFINA Zamora. Pt is resting in bed. In no acute distress. IV line intact and patent. Bed in lowest position, call light within reach. Will continue plan of care.
[2019-07-12 20:00] VITALS: BP 111/64
[2019-07-13] VITALS: BP 106/67
[2019-07-13] MEDS: Piperacillin/Tazobactam 3.375 GM in NS 110 ML IVPB SCH ×3 (00:16→15:55)
[2019-07-13 04:00] VITALS: BP 109/66
[2019-07-13] MEDS: Vancomycin 750 MG in D5W 275 ML IVPB SCH (06:36)
--- NOTE | 2019-07-13 07:33 | NUR ---
HAND-OFF: Report given to JOSEFINA Ceron.
[2019-07-13 07:37] LABS: HEMATOCRIT 28.5 % (42.0-52.0); HEMOGLOBIN 8.5 G/DL (14.2-18.0); MEAN CORPUSCULAR VOLUME 93 FL (80-99); PLATELET COUNT 85 K/UL (150-450); RED BLOOD COUNT 3.05 M/UL (4.70-6.10); RED CELL DISTRIBUTION WIDTH 23.8 % (11.6-14.8); WHITE BLOOD COUNT 5.4 K/UL (4.8-10.8)
--- NOTE | 2019-07-13 07:40 | NUR ---
NURSE NOTES: Received report from JOSEFINA Bowman. The patient is resting on the bed without acute distress or shortness of breath. The patient's bed in the lowest position, call light in reach, and fall, aspiration, and seizure precaution reinforced. IV site on right FA 20G is intact and patent. Fed the patient in the morning. Will continue plan of care.
[2019-07-13 07:48] LABS: INR 1.6 (0.9-1.1)
--- NOTE | 2019-07-13 07:56 | General Progress Note ---
Assessment/Plan Problem List: (1) Anemia ICD Codes: D64.9 - Anemia, unspecified SNOMED: 278717319 Qualifiers: Qualified Codes: D64.9 - Anemia, unspecified (2) Acute alcoholic intoxication ICD Codes: F10.929 - Alcohol use, unspecified with intoxication, unspecified SNOMED: 21925844, 0506320 Qualifiers: Qualified Codes: F10.929 - Alcohol use, unspecified with intoxication, unspecified (3) Cirrhosis ICD Codes: K74.60 - Unspecified cirrhosis of liver SNOMED: 90717059 (4) Ascites ICD Codes: R18.8 - Other ascites SNOMED: 046871383 Status: unchanged Assessment/Plan: (1) Ascites ICD Codes: R18.8 - Other ascites SNOMED: 562486212 (2) Cirrhosis ICD Codes: K74.60 - Unspecified cirrhosis of liver SNOMED: 24436314 (3) Abdominal distension ICD Codes: R14.0 - Abdominal distension (gaseous) SNOMED: 25156752 (4) Acute alcoholic intoxication ICD Codes: F10.929 - Alcohol use, unspecified with intoxication, unspecified SNOMED: 39605109, 4993246 Qualifiers: Qualified Codes: F10.929 - Alcohol use, unspecified with intoxication, unspecified (5) Anemia ICD Codes: D64.9 - Anemia, unspecified SNOMED: 979306983 Qualifiers: Qualified Codes: D64.9 - Anemia, unspecified Status: unchanged Status Narrative Discussed with Dr. Guzman. Assessment/Plan Assessment (1) Anemia (2) Acute alcoholic intoxication (3) Cirrhosis (4) Ascites (5) Encephalopathy / delirium (6) abnormal lytes tolerating diet no obvious GIB per nurses Recommendations repeat paracentesis pending vit k given fu stool ob protonix eating better today, continue to push PO on librium now Subjective ROS Limited/Unobtainable: No Allergies: Coded Allergies: No Known Allergies (Unverified , 07/03/19) Objective Last 24 Hour Vital Signs Date Time Temp Pulse Resp B/P (MAP) Pulse Ox O2 Delivery O2 Flow Rate FiO2 07/13/19 04:00 81 07/13/19 04:00 97.7 81 18 109/66 (80) 97 07/13/19 00:00 97.9 83 18 106/67 (80) 96 07/13/19 00:00 83 07/12/19 21:00 Room Air 07/12/19 20:00 83 07/12/19 20:00 97.7 83 18 111/64 (80) 98 07/12/19 16:00 99.1 81 20 102/65 (77) 95 07/12/19 16:00 83 07/12/19 12:00 97.2 87 18 101/68 (79) 93 07/12/19 12:00 87 07/12/19 09:00 Room Air 07/12/19 08:00 97.4 116 20 145/96 (112) 97 07/12/19 08:00 88 Intake and Output 07/12/19 07/13/19 19:00 07:00 Intake Total 240 ml Balance 240 ml Intake Oral 240 ml # Voids 5 2 Laboratory Tests 07/13/19 06:08: White Blood Count 5.4, Red Blood Count 3.05L, Hemoglobin 8.5L, Hematocrit 28.5L , Mean Corpuscular Volume 93, Mean Corpuscular Hemoglobin 28.0, Mean Corpuscular Hemoglobin Concent 30.0L, Red Cell Distribution Width 23.8H, Platelet Count 85L, Mean Platelet Volume 8.0, Neutrophils (%) (Auto) , Lymphocytes (%) (Auto) , Monocytes (%) (Auto) , Eosinophils (%) (Auto) , Basophils (%) (Auto) , Neutrophils % (Manual) [Pending], Lymphocytes % (Manual) [Pending], Platelet Estimate [Pending], Platelet Morphology [Pending], Prothrombin Time 16.9H, Prothromb Time International Ratio 1.6H, Sodium Level [ Pending], Potassium Level [Pending], Chloride Level [Pending], Carbon Dioxide Level [Pending], Blood Urea Nitrogen [Pending], Creatinine [Pending], Estimat Glomerular Filtration Rate [Pending], Glucose Level [Pending], Calcium Level [ Pending], Total Bilirubin [Pending], Aspartate Amino Transf (AST/SGOT) [Pending] , Alanine Aminotransferase (ALT/SGPT) [Pending], Alkaline Phosphatase [Pending] , Total Protein [Pending], Albumin [Pending], Globulin [Pending] Height (Feet): 5 Height (Inches): 8.00 Weight (Pounds): 157 General Appearance: no apparent distress EENT: normal ENT inspection Neck: supple Cardiovascular: normal rate Respiratory/Chest: decreased breath sounds Abdomen: normal bowel sounds, non tender, soft Extremities: non-tender Robert Guzman MD Jul 13, 2019 07:56
[2019-07-13 08:00] VITALS: BP 101/67
--- NOTE | 2019-07-13 08:13 | NUR ---
NURSE NOTES: Notified Dr. Guzman and Dr. Guo regarding hemoglobin, platelet, PT, and INR result. No new order at this time. Will carry out the order as soon as receives it. Will continue plan of care.
[2019-07-13 08:17] LABS: ALANINE AMINOTRANSFERASE 30 U/L (12-78); ALBUMIN/GLOBULIN RATIO 0.2 (1.0-2.7); ALKALINE PHOSPHATASE 95 U/L (46-116); ANION GAP 7 mmol/L (5-15); ASPARTATE AMINO TRANSFERASE 97 U/L (15-37); BILIRUBIN,DIRECT 0.8 MG/DL (0.0-0.3); BILIRUBIN,TOTAL 1.5 MG/DL (0.2-1.0); BLOOD UREA NITROGEN 9 mg/dL (7-18); CALCIUM 8.7 MG/DL (8.5-10.1); CARBON DIOXIDE 24 MMOL/L (21-32); CHLORIDE 115 MMOL/L (98-107); CREATININE 1.1 MG/DL (0.55-1.30); POTASSIUM 3.3 MMOL/L (3.5-5.1); SODIUM 146 MMOL/L (136-145)
--- NOTE | 2019-07-13 08:23 | NUR ---
NURSE NOTES: Left voicemail to Dr. Freeman regarding potassium level. Will carry out the order as soon as receives it. Will continue plan of care.
--- NOTE | 2019-07-13 08:26 | NUR ---
NURSE NOTES: Dr. Freeman ordered 40mEq KCL PO one time for potassium level. Dr. Freeman ordered Magnesium level tomorrow am. Will carry out the order now.
[2019-07-13] MEDS: Pantoprazole Inj IVP SCH ×2 (08:52→20:21)
[2019-07-13] MEDS: Lactulose 20gm/30ml UDC ORAL SCH ×3 (08:53→17:14)
[2019-07-13] MEDS: Azithromycin 250mg tab ORAL SCH (08:54)
[2019-07-13] MEDS: Thiamine 100mg tab ORAL SCH (08:54)
--- NOTE | 2019-07-13 11:39 | Hematology/Onc Progress Note ---
Assessment/Plan Assessment/Plan ASSESSMENT AND RECS # Anemia of iron deficiency in addition to suppression from etoh abuse and cirrhosis of liver --> Anemia workup has been ordered, rule out gi bleed --> aid noted --> No evidence of hemolysis is noted, peripheral smear has been reviewed. --> Hgb goal >7. Transfuse prn. --> Hgb trend: 4.2-->7.1-->7.6 --> 7.6-->7.7-->8.9-->9.1-->8.9-->8.5 --> IRON IV 200mg stat ordered x 1dose --> Medications have been reviewed --> stool ob negative --> bone marrow biopsy is not indicated given the other more likely causes # Thrombocytopenia - secondary to liver cirrhosis --> Hep panel and HIV ordered - both negative --> US abd to evaluate for cirrhosis and hsm ordered - Hepatic surface nodularity, suggestive of cirrhosis. Ascites --> Peripheral smear ordered to evaluate for blasts /schistocytes and none significant noted --> abx and other meds have been reviewed --> ok for ppx if plt >50k w/ either heparin or lovenox --> Transfuse if Plt < 20k and fever, or if Plt < 10k without fever --> plt trend 90-->92k-->82-->92k-->85k # Coagulopathy due to liver cirrhosis secondary to Etoh --> GI is following, appreciate recs --> Abdominal ultrasound reviewed --> Supportive care --> lactulose prophylactic # Substance abuse --> psych eval # Hypokalemia --> Replace, continue to monitor # Hypocalcemia --> replete Ca++ prn # Cirrhosis of the liver The timing of this note does not necessarily reflect the time of the patient was seen. GREATLY APPRECIATE CONSULTATION. Subjective Constitutional: Denies: no symptoms, chills, fever, malaise, weakness, other HEENT: Denies: no symptoms, eye pain, blurred vision, tearing, double vision, ear pain, ear discharge, nose pain, nose congestion, throat pain, throat swelling, mouth pain, mouth swelling, other Respiratory: Denies: no symptoms, cough, shortness of breath, SOB with excertion, SOB at rest, sputum, wheezing, other Neurologic/Psychiatric: Denies: no symptoms, anxiety, depressed, emotional problems, headache, numbness, paresthesia, pre-existing deficit, seizure, tingling, tremors, weakness, other Endocrine: Denies: no symptoms, excessive sweating, flushing, intolerance to cold, intolerance to heat, increased hunger, increased thirst, increased urine, unexplained weight gain, unexplained weight loss, other Allergies: Coded Allergies: No Known Allergies (Unverified , 07/03/19) Subjective 07/05: no fevers, chills or night sweats noted, on iv iron has been started, on benzo 07/07: extremely agitated overnight, climbin out of bed, on cristina taper, h/h low 07/08: remains on abx, no f/c, no bleeding is noted, no changes 07/09: paracentesis negative for malignant cells, cxr and labs reviewed 07/10: no acute distress, still drowsy, has been attempting to get out of bed 07/11: transferred [facility], stool ob negative, h/h stable 07/12: imaging reviewed, on abx, us paracentesis, no distress 07/13: remains on librium, plt 85, hgb 8.5, no f/c, no night sweats Objective Objective Current Medications Medications (Trade) Dose Ordered Sig/Tanja Route PRN Reason Start Time Stop Time Status Last Admin Dose Admin Azithromycin (Zithromax) 500 mg DAILY ORAL 07/11/19 09:00 07/15/19 15:59 07/13/19 08:54 Folic Acid (Folate) 1 mg DAILY ORAL 07/11/19 09:00 08/03/19 10:29 07/13/19 08:53 Lactulose (Cephulac) 20 gm THREE TIMES A DAY ORAL 07/11/19 09:00 08/04/19 12:59 07/13/19 08:53 Pantoprazole (Protonix) 40 mg EVERY 12 HOURS IVP 07/11/19 09:00 08/03/19 08:59 07/13/19 08:52 Piperacillin Sod/ Tazobactam Sod 3.375 gm/Sodium Chloride 110 ml @ 27.5 mls/hr Q8HR@0000,0800,1600 IVPB 07/11/19 08:00 07/13/19 15:59 07/13/19 09:00 Rifaximin (Xifaxan) 550 mg EVERY 12 HOURS ORAL 07/11/19 09:00 07/15/19 20:59 07/13/19 08:54 Thiamine HCl (Vitamin B1) 100 mg DAILY ORAL 07/11/19 09:00 08/03/19 10:29 07/13/19 08:54 Vancomycin HCl (Vanco rx to dose) 1 ea DAILY PRN MISC . 07/11/19 09:15 08/10/19 09:14 Vancomycin HCl 750 mg/Dextrose 275 ml @ 183.333 mls/hr Q12H IVPB 07/11/19 07:00 07/15/19 18:59 07/13/19 06:36 Last 24 Hour Vital Signs Date Time Temp Pulse Resp B/P (MAP) Pulse Ox O2 Delivery O2 Flow Rate FiO2 07/13/19 09:00 Room Air 07/13/19 08:00 96.4 82 18 101/67 (78) 97 07/13/19 08:00 78 07/13/19 04:00 81 07/13/19 04:00 97.7 81 18 109/66 (80) 97 07/13/19 00:00 97.9 83 18 106/67 (80) 96 07/13/19 00:00 83 07/12/19 21:00 Room Air 07/12/19 20:00 83 07/12/19 20:00 97.7 83 18 111/64 (80) 98 07/12/19 16:00 99.1 81 20 102/65 (77) 95 07/12/19 16:00 83 07/12/19 12:00 97.2 87 18 101/68 (79) 93 07/12/19 12:00 87 07/12/19 09:00 Room Air 07/12/19 08:00 97.4 116 20 145/96 (112) 97 07/12/19 08:00 88 07/12/19 04:00 98.2 90 21 100/67 (78) 99 07/12/19 04:00 87 07/12/19 00:00 86 07/12/19 00:00 98.2 87 19 98/62 (74) 96 07/11/19 21:00 Room Air 07/11/19 20:00 98.9 85 20 94/67 (76) 98 07/11/19 20:00 81 07/11/19 16:00 76 07/11/19 16:00 97.5 77 22 106/67 (80) 95 07/11/19 12:00 83 07/11/19 12:00 97.0 87 22 147/52 (83) 98 Intake and Output 07/12/19 07/13/19 18:59 06:59 Intake Total 360 ml Balance 360 ml Intake Oral 360 ml # Voids 5 2 Labs Test 07/11/19 05:39 07/12/19 06:00 07/13/19 06:08 White Blood Count 5.5 K/UL (4.8-10.8) 6.3 K/UL (4.8-10.8) 5.4 K/UL (4.8-10.8) Red Blood Count 3.34 M/UL (4.70-6.10) 3.22 M/UL (4.70-6.10) 3.05 M/UL (4.70-6.10) Hemoglobin 9.1 G/DL (14.2-18.0) 8.9 G/DL (14.2-18.0) 8.5 G/DL (14.2-18.0) Hematocrit 31.4 % (42.0-52.0) 30.5 % (42.0-52.0) 28.5 % (42.0-52.0) Mean Corpuscular Volume 94 FL (80-99) 95 FL (80-99) 93 FL (80-99) Mean Corpuscular Hemoglobin 27.2 PG (27.0-31.0) 27.8 PG (27.0-31.0) 28.0 PG (27.0-31.0) Mean Corpuscular Hemoglobin Concent 28.9 G/DL (32.0-36.0) 29.3 G/DL (32.0-36.0) 30.0 G/DL (32.0-36.0) Red Cell Distribution Width 24.4 % (11.6-14.8) 24.8 % (11.6-14.8) 23.8 % (11.6-14.8) Platelet Count 82 K/UL (150-450) 92 K/UL (150-450) 85 K/UL (150-450) Mean Platelet Volume 7.3 FL (6.5-10.1) 7.9 FL (6.5-10.1) 8.0 FL (6.5-10.1) Neutrophils (%) (Auto) % (45.0-75.0) % (45.0-75.0) % (45.0-75.0) Lymphocytes (%) (Auto) % (20.0-45.0) % (20.0-45.0) % (20.0-45.0) Monocytes (%) (Auto) % (1.0-10.0) % (1.0-10.0) % (1.0-10.0) Eosinophils (%) (Auto) % (0.0-3.0) % (0.0-3.0) % (0.0-3.0) Basophils (%) (Auto) % (0.0-2.0) % (0.0-2.0) % (0.0-2.0) Differential Total Cells Counted 100 100 100 Neutrophils % (Manual) 76 % (45-75) 64 % (45-75) 58 % (45-75) Lymphocytes % (Manual) 10 % (20-45) 23 % (20-45) 30 % (20-45) Monocytes % (Manual) 9 % (1-10) 12 % (1-10) 11 % (1-10) Eosinophils % (Manual) 4 % (0-3) 1 % (0-3) 1 % (0-3) Basophils % (Manual) 1 % (0-2) 0 % (0-2) 0 % (0-2) Band Neutrophils 0 % (0-8) 0 % (0-8) 0 % (0-8) Platelet Estimate Decreased Decreased Decreased Platelet Morphology Normal Normal Normal Anisocytosis 1+ 2+ 3+ Sodium Level 147 MMOL/L (136-145) 148 MMOL/L (136-145) 146 MMOL/L (136-145) Potassium Level 3.0 MMOL/L (3.5-5.1) 3.8 MMOL/L (3.5-5.1) 3.3 MMOL/L (3.5-5.1) Chloride Level 115 MMOL/L (98-107) 117 MMOL/L (98-107) 115 MMOL/L (98-107) Carbon Dioxide Level 25 MMOL/L (21-32) 24 MMOL/L (21-32) 24 MMOL/L (21-32) Anion Gap 7 mmol/L (5-15) 7 mmol/L (5-15) 7 mmol/L (5-15) Blood Urea Nitrogen 7 mg/dL (7-18) 8 mg/dL (7-18) 9 mg/dL (7-18) Creatinine 1.0 MG/DL (0.55-1.30) 1.1 MG/DL (0.55-1.30) 1.1 MG/DL (0.55-1.30) Estimat Glomerular Filtration Rate > 60 mL/min (>60) > 60 mL/min (>60) > 60 mL/min (>60) Glucose Level 89 MG/DL (74-106) 81 MG/DL (74-106) 70 MG/DL (74-106) Calcium Level 8.4 MG/DL (8.5-10.1) 8.7 MG/DL (8.5-10.1) 8.7 MG/DL (8.5-10.1) Magnesium Level 1.8 MG/DL (1.8-2.4) 1.6 MG/DL (1.8-2.4) Total Bilirubin 1.6 MG/DL (0.2-1.0) 1.5 MG/DL (0.2-1.0) 1.5 MG/DL (0.2-1.0) Direct Bilirubin 1.1 MG/DL (0.0-0.3) 0.9 MG/DL (0.0-0.3) 0.8 MG/DL (0.0-0.3) Aspartate Amino Transf (AST/SGOT) 95 U/L (15-37) 104 U/L (15-37) 97 U/L (15-37) Alanine Aminotransferase (ALT/SGPT) 26 U/L (12-78) 32 U/L (12-78) 30 U/L (12-78) Alkaline Phosphatase 96 U/L (46-116) 94 U/L (46-116) 95 U/L (46-116) Ammonia 34 umol/L (11-32) Total Protein 6.9 G/DL (6.4-8.2) 7.1 G/DL (6.4-8.2) 7.1 G/DL (6.4-8.2) Albumin 0.9 G/DL (3.4-5.0) 1.0 G/DL (3.4-5.0) 1.0 G/DL (3.4-5.0) Globulin 6.0 g/dL 6.1 g/dL 6.1 g/dL Albumin/Globulin Ratio 0.1 (1.0-2.7) 0.2 (1.0-2.7) 0.2 (1.0-2.7) Hypochromasia 1+ 1+ Phosphorus Level 4.1 MG/DL (2.5-4.9) Vancomycin Level Trough 20.3 ug/mL (5.0-12.0) Prothrombin Time 16.9 SEC (9.30-11.50) Prothromb Time International Ratio 1.6 (0.9-1.1) Height (Feet): 5 Height (Inches): 8.00 Weight (Pounds): 157 Objective Physical Exam: Vitals: reviewed General Appearance: NAD HEENT: normocephalic, atraumatic Neck: non-tender, normal alignment Respiratory/Chest: normal breath sounds bilaterally Cardiovascular/Chest: normal peripheral pulses, normal rate Abdomen: normal bowel sounds, soft, nontender +++ ascites Avery Guo MD Jul 13, 2019 11:39
[2019-07-13 12:00] VITALS: BP 100/69
--- NOTE | 2019-07-13 12:03 | NUR ---
NURSE NOTES: Sputum collection completed and sent down to the lab.
[2019-07-13 16:00] VITALS: BP 99/64
--- NOTE | 2019-07-13 16:02 | Infectious Diseases Prog Note ---
Assessment/Plan Assessment/Plan A) 1) mssa bacteremia (correction, not mrsa on previous noteds, pna, sepsis, fevers, chest x-ray now with atx 2) liver cirrhosis 3) anemia 4) allergies - nkda 5) hx substance abuse 6) d/w RN, -nc 7) d/w RN P) 1) change to ancef, finish zosyn and vancomycin, day # 7 abx 2) check labs, chest-x-ray, monitor labs 3) s/p tx for head lice 4) surveillance blood cultures negative 5) will f/u Subjective Constitutional: Denies: fever HEENT: Denies: congestion Respiratory: Denies: shortness of breath Cardiovascular: Denies: chest pain Gastrointestinal/Abdominal: Denies: nausea, vomiting, diarrhea Genitourinary: Denies: dysuria, hematuria Neurologic: Denies: headache Psychiatric: Denies: depression Allergies: Coded Allergies: No Known Allergies (Unverified , 07/03/19) Objective Vital Signs Last 24 Hour Vital Signs Date Time Temp Pulse Resp B/P (MAP) Pulse Ox O2 Delivery O2 Flow Rate FiO2 07/13/19 12:00 97.3 88 18 100/69 (79) 96 07/13/19 12:00 87 07/13/19 09:00 Room Air 07/13/19 08:00 96.4 82 18 101/67 (78) 97 07/13/19 08:00 78 07/13/19 04:00 81 07/13/19 04:00 97.7 81 18 109/66 (80) 97 07/13/19 00:00 97.9 83 18 106/67 (80) 96 07/13/19 00:00 83 07/12/19 21:00 Room Air 07/12/19 20:00 83 07/12/19 20:00 97.7 83 18 111/64 (80) 98 07/12/19 16:00 99.1 81 20 102/65 (77) 95 07/12/19 16:00 83 Height (Feet): 5 Height (Inches): 8.00 Weight (Pounds): 157 General Appearance: no acute distress HEENT: normocephalic, atraumatic, anicteric Respiratory/Chest: lungs clear, normal breath sounds, no respiratory distress, no accessory muscle use Cardiovascular: normal rate, regular rhythm Abdomen: normal bowel sounds, soft, non tender, no organomegaly Extremities: no cyanosis Skin: no rash Neurologic/Psychiatric: journal box 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 There may be some patchy retrocardiac consolidation as well which is unchanged. The left costophrenic angle remains blunted. The heart is borderline enlarged Impression: Development of bilateral interstitial infiltrates versus edema, over 3 days. Persistent patchy retrocardiac consolidation and possible small left pleural effusion 07/12/19 - chest x-ray - Comparison: 07/09/2019 A single view chest radiograph was obtained. Findings: Basal atelectasis demonstrated with low lung volumes. Heart size is stable and within normal limits. IMPRESSION: No change compared to the previous exam. Basal atelectasis Microbiology Date/Time Source Procedure Growth Status 07/09/19 12:40 Blood Blood Culture - Preliminary NO GROWTH AFTER 72 HOURS Resulted 07/05/19 15:00 Body Fluid Peritoneal Gram Stain - Final Complete 07/05/19 15:00 Body Fluid Peritoneal Body Fluid Culture - Final NO GROWTH Complete 07/03/19 22:40 Nasal Nares MRSA Culture - Final NO METHICILLIN RESISTANT STAPH AUREUS... Complete 07/07/19 19:19 Straight Cath Urine Culture - Final NO GROWTH AFTER 48 HOURS Complete 07/03/19 22:40 Rectum VRE Culture - Final NO VANCOMYCIN RESISTANT ENTEROCOCCUS ... Complete Laboratory Tests Test 07/13/19 06:08 White Blood Count 5.4 K/UL (4.8-10.8) Red Blood Count 3.05 M/UL (4.70-6.10) L Hemoglobin 8.5 G/DL (14.2-18.0) L Hematocrit 28.5 % (42.0-52.0) L Mean Corpuscular Volume 93 FL (80-99) Mean Corpuscular Hemoglobin 28.0 PG (27.0-31.0) Mean Corpuscular Hemoglobin Concent 30.0 G/DL (32.0-36.0) L Red Cell Distribution Width 23.8 % (11.6-14.8) H Platelet Count 85 K/UL (150-450) L Mean Platelet Volume 8.0 FL (6.5-10.1) Neutrophils (%) (Auto) % (45.0-75.0) Lymphocytes (%) (Auto) % (20.0-45.0) Monocytes (%) (Auto) % (1.0-10.0) Eosinophils (%) (Auto) % (0.0-3.0) Basophils (%) (Auto) % (0.0-2.0) Differential Total Cells Counted 100 Neutrophils % (Manual) 58 % (45-75) Lymphocytes % (Manual) 30 % (20-45) Monocytes % (Manual) 11 % (1-10) H Eosinophils % (Manual) 1 % (0-3) Basophils % (Manual) 0 % (0-2) Band Neutrophils 0 % (0-8) Platelet Estimate Decreased L Platelet Morphology Normal Hypochromasia 1+ Anisocytosis 3+ Prothrombin Time 16.9 SEC (9.30-11.50) H Prothromb Time International Ratio 1.6 (0.9-1.1) H Sodium Level 146 MMOL/L (136-145) H Potassium Level 3.3 MMOL/L (3.5-5.1) L Chloride Level 115 MMOL/L (98-107) H Carbon Dioxide Level 24 MMOL/L (21-32) Anion Gap 7 mmol/L (5-15) Blood Urea Nitrogen 9 mg/dL (7-18) Creatinine 1.1 MG/DL (0.55-1.30) Estimat Glomerular Filtration Rate > 60 mL/min (>60) Glucose Level 70 MG/DL (74-106) L Calcium Level 8.7 MG/DL (8.5-10.1) Total Bilirubin 1.5 MG/DL (0.2-1.0) H Direct Bilirubin 0.8 MG/DL (0.0-0.3) H Aspartate Amino Transf (AST/SGOT) 97 U/L (15-37) H Alanine Aminotransferase (ALT/SGPT) 30 U/L (12-78) Alkaline Phosphatase 95 U/L (46-116) Total Protein 7.1 G/DL (6.4-8.2) Albumin 1.0 G/DL (3.4-5.0) L Globulin 6.1 g/dL Albumin/Globulin Ratio 0.2 (1.0-2.7) L Current Medications Medications (Trade) Dose Ordered Sig/Tanja Route PRN Reason Start Time Stop Time Status Last Admin Dose Admin Azithromycin (Zithromax) 500 mg DAILY ORAL 07/11/19 09:00 07/15/19 15:59 07/13/19 08:54 Folic Acid (Folate) 1 mg DAILY ORAL 07/11/19 09:00 08/03/19 10:29 07/13/19 08:53 Lactulose (Cephulac) 20 gm THREE TIMES A DAY ORAL 07/11/19 09:00 08/04/19 12:59 07/13/19 12:27 Pantoprazole (Protonix) 40 mg EVERY 12 HOURS IVP 07/11/19 09:00 08/03/19 08:59 07/13/19 08:52 Piperacillin Sod/ Tazobactam Sod 3.375 gm/Sodium Chloride 110 ml @ 27.5 mls/hr Q8HR@0000,0800,1600 IVPB 07/11/19 08:00 07/18/19 07:59 07/13/19 15:55 Rifaximin (Xifaxan) 550 mg EVERY 12 HOURS ORAL 07/11/19 09:00 07/15/19 20:59 07/13/19 08:54 Thiamine HCl (Vitamin B1) 100 mg DAILY ORAL 07/11/19 09:00 08/03/19 10:29 07/13/19 08:54 Vancomycin HCl (Vanco rx to dose) 1 ea DAILY PRN MISC . 07/11/19 09:15 08/10/19 09:14 Vancomycin HCl 750 mg/Dextrose 275 ml @ 183.333 mls/hr Q12H IVPB 07/11/19 07:00 07/15/19 18:59 07/13/19 06:36 Dionna Tee MD Jul 13, 2019 16:02
--- NOTE | 2019-07-13 16:15 | NUR ---
NURSE NOTES: Communicated with Dr. Tee regarding 1600 Zosyn and [address] Tee, give 1600 Zosyn as scheduled and start Cefazolin from today. Will continue plan of care.
--- NOTE | 2019-07-13 17:02 | NUR ---
NURSE NOTES: The patient is stable without acute distress or shortness of breath. Will continue plan of care.
[2019-07-13] MEDS: ceFAZolin sod 2 GM in NS 55 ML IVP SCH (17:14)
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
--- NOTE | 2019-07-13 19:07 | General Progress Note ---
Assessment/Plan Status: unchanged Assessment/Plan: 48-year-old male with past medical history of ETOH abuse presented found down. Overall improving #Encephalopathy likely multifactorial including hepatic encephalopathy ( elevated ammonia), as well as sepsis with bacteremia due to MSSA. #Sepsis secondary to bacteremia due to MSSA - Repeat CXR -cont. vancomycin and Zosyn (07/06), will switch to cefazolin today per ID recs -Infectious disease consult, appreciate recs # Lice - primerin treatment - Ordered to clip hair as persistent lice noted despite 2 shampoo treatment #Liver cirrhosis secondary to EtOH # ETOH withdrawal. Libirum being used. - DF 31 -MELD 15 -Abdominal ultrasound reviewed -Status post paracentesis 07/05/2019 with removal of 8 L., Follow-up diagnostic results evaluate for SBP, ordered but not done! -Albumin for BP support as needed -Supportive care - lactulose HI - Repeat paracentesis not done due to elevated INR #Anemia, likely might multifactorial including acute blood loss anemia, anemia of chronic disease -Hematology consult, appreciate recs -Iron panel: Reviewed -Low folate: Replace -B12 within normal limits above 800 -GI consult, appreciate recs. HOLD OFF NGT for now due to risk with possible esophageal varices. PENDING EGD per GI decision. Patient is gradually waking up and eating is still a problem. MONITOR closely as he is now 9 days into the Hospital stay. #Thrombocytopenia -due to cirrhosis- stable #Substance abuse -Nodular liver in ultrasound suggestive of cirrhosis -Check hepatitis and HIV: hiv neg, hep pending -Social work Consult - Psyche consult, appreciate recs #Hypokalemia Replace as needed # Hypomagnesemia Replace today # Hypocalcemia - replace as needed #Dysphagia -Etiology due to agitation, likely due underlying hepatic encephalopathy vs side effect of Ativan #full code # Disposition SW and CM follow up needed. Homeless. The time of my note may not reflect the time of my patient encounter. I spent 40 minutes on this encounter, greater than 50 percent in counseling and care coordination Subjective Date patient seen: Jul 13, 2019 ROS Limited/Unobtainable: Yes - limited due to patient's mental status only oriented to self and hard to arouse Allergies: Coded Allergies: No Known Allergies (Unverified , 07/03/19) Subjective seen and examined. Only oriented to self. Hard to arouse. looks comfortable Objective Last 24 Hour Vital Signs Date Time Temp Pulse Resp B/P (MAP) Pulse Ox O2 Delivery O2 Flow Rate FiO2 07/13/19 16:00 97.4 85 18 99/64 (76) 95 07/13/19 16:00 89 07/13/19 12:00 97.3 88 18 100/69 (79) 96 07/13/19 12:00 87 07/13/19 09:00 Room Air 07/13/19 08:00 96.4 82 18 101/67 (78) 97 07/13/19 08:00 78 07/13/19 04:00 81 07/13/19 04:00 97.7 81 18 109/66 (80) 97 07/13/19 00:00 97.9 83 18 106/67 (80) 96 07/13/19 00:00 83 07/12/19 21:00 Room Air 07/12/19 20:00 83 07/12/19 20:00 97.7 83 18 111/64 (80) 98 Intake and Output 07/12/19 07/13/19 19:00 07:00 Intake Total 240 ml Balance 240 ml Intake Oral 240 ml # Voids 5 2 Laboratory Tests 07/13/19 06:08: White Blood Count 5.4, Red Blood Count 3.05L, Hemoglobin 8.5L, Hematocrit 28.5L , Mean Corpuscular Volume 93, Mean Corpuscular Hemoglobin 28.0, Mean Corpuscular Hemoglobin Concent 30.0L, Red Cell Distribution Width 23.8H, Platelet Count 85L, Mean Platelet Volume 8.0, Neutrophils (%) (Auto) , Lymphocytes (%) (Auto) , Monocytes (%) (Auto) , Eosinophils (%) (Auto) , Basophils (%) (Auto) , Differential Total Cells Counted 100, Neutrophils % ( Manual) 58, Lymphocytes % (Manual) 30, Monocytes % (Manual) 11H, Eosinophils % ( Manual) 1, Basophils % (Manual) 0, Band Neutrophils 0, Platelet Estimate DecreasedL, Platelet Morphology Normal, Hypochromasia 1+, Anisocytosis 3+, Prothrombin Time 16.9H, Prothromb Time International Ratio 1.6H, Sodium Level 146H, Potassium Level 3.3L, Chloride Level 115H, Carbon Dioxide Level 24, Anion Gap 7, Blood Urea Nitrogen 9, Creatinine 1.1, Estimat Glomerular Filtration Rate > 60, Glucose Level 70L, Calcium Level 8.7, Total Bilirubin 1.5H, Direct Bilirubin 0.8H, Aspartate Amino Transf (AST/SGOT) 97H, Alanine Aminotransferase (ALT/SGPT) 30, Alkaline Phosphatase 95, Total Protein 7.1, Albumin 1.0L, Globulin 6.1, Albumin/Globulin Ratio 0.2L Height (Feet): 5 Height (Inches): 8.00 Weight (Pounds): 157 Objective General Appearance: moderate distress EENT: PERRL/EOMI, normal ENT inspection Cardiovascular: normal rate Respiratory/Chest: lungs clear Abdomen: distended, hepatomegaly Edema: trace edema 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 Jul 13, 2019 19:07
--- NOTE | 2019-07-13 19:11 | NUR ---
HAND-OFF: Report given to JOSEFINA Bowman. The patient is sleeping on the bed without acute distress or shortness of breath. The patient's bed in the lowest position, call light in reach, and fall, aspiration and seizure precaution reinforced. IV site on R FA 20G intact and patent. Endorsed plan of care.
[2019-07-13 20:00] VITALS: BP 121/68
[2019-07-14] VITALS: BP 106/65
[2019-07-14] MEDS: ceFAZolin sod 2 GM in NS 55 ML IVP SCH ×3 (00:45→17:20)
[2019-07-14 04:00] VITALS: BP 107/67
--- NOTE | 2019-07-14 07:16 | NUR ---
HAND-OFF: Report given to JOSEFINA Sagastume.
--- NOTE | 2019-07-14 07:17 | NUR ---
NURSE NOTES: Received report from JOSEFINA Bowman. Patient is resting in bed, in stable condition. No s/sx of SOB, breathing is even and unlabored. Bed is in lowest position, brakes engaged. Call light is kept within easy reach. Will continue to monitor patient.
--- NOTE | 2019-07-14 07:31 | General Progress Note ---
Assessment/Plan Problem List: (1) Anemia ICD Codes: D64.9 - Anemia, unspecified SNOMED: 945775710 Qualifiers: Qualified Codes: D64.9 - Anemia, unspecified (2) Acute alcoholic intoxication ICD Codes: F10.929 - Alcohol use, unspecified with intoxication, unspecified SNOMED: 49391482, 5797371 Qualifiers: Qualified Codes: F10.929 - Alcohol use, unspecified with intoxication, unspecified (3) Cirrhosis ICD Codes: K74.60 - Unspecified cirrhosis of liver SNOMED: 18504631 (4) Ascites ICD Codes: R18.8 - Other ascites SNOMED: 657426512 Status: unchanged Assessment/Plan: (1) Ascites ICD Codes: R18.8 - Other ascites SNOMED: 971377875 (2) Cirrhosis ICD Codes: K74.60 - Unspecified cirrhosis of liver SNOMED: 26365644 (3) Abdominal distension ICD Codes: R14.0 - Abdominal distension (gaseous) SNOMED: 80811201 (4) Acute alcoholic intoxication ICD Codes: F10.929 - Alcohol use, unspecified with intoxication, unspecified SNOMED: 64790677, 4038208 Qualifiers: Qualified Codes: F10.929 - Alcohol use, unspecified with intoxication, unspecified (5) Anemia ICD Codes: D64.9 - Anemia, unspecified SNOMED: 924341752 Qualifiers: Qualified Codes: D64.9 - Anemia, unspecified Status: unchanged Status Narrative Discussed with Dr. Guzman. Assessment/Plan Assessment (1) Anemia (2) Acute alcoholic intoxication (3) Cirrhosis (4) Ascites (5) Encephalopathy / delirium (6) abnormal lytes tolerating diet no obvious GIB per nurses Recommendations repeat paracentesis pending vit k given fu stool ob protonix eating better , continue to push PO on librium now Subjective Allergies: Coded Allergies: No Known Allergies (Unverified , 07/03/19) Objective Last 24 Hour Vital Signs Date Time Temp Pulse Resp B/P (MAP) Pulse Ox O2 Delivery O2 Flow Rate FiO2 07/14/19 04:00 98.2 89 18 107/67 (80) 95 07/14/19 04:00 89 07/14/19 00:00 97.9 82 18 106/65 (79) 96 07/14/19 00:00 82 07/13/19 21:00 Room Air 07/13/19 20:00 85 07/13/19 20:00 97.4 85 18 121/68 (85) 95 07/13/19 16:00 97.4 85 18 99/64 (76) 95 07/13/19 16:00 89 07/13/19 12:00 97.3 88 18 100/69 (79) 96 07/13/19 12:00 87 07/13/19 09:00 Room Air 07/13/19 08:00 96.4 82 18 101/67 (78) 97 07/13/19 08:00 78 Intake and Output 07/13/19 07/14/19 19:00 07:00 Intake Total 900 ml 55 ml Output Total 1000 ml 500 ml Balance -100 ml -445 ml Intake Oral 900 ml IV Total 55 ml Output Urine Total 1000 ml 500 ml # Voids 1 # Bowel Movements 1 Height (Feet): 5 Height (Inches): 8.00 Weight (Pounds): 157 General Appearance: no apparent distress EENT: normal ENT inspection Neck: supple Cardiovascular: normal rate Respiratory/Chest: decreased breath sounds Abdomen: normal bowel sounds, non tender, soft Robert Guzman MD Jul 14, 2019 07:31
[2019-07-14 08:00] VITALS: BP 110/68
[2019-07-14] MEDS: Lactulose 20gm/30ml UDC ORAL SCH ×3 (08:30→17:20)
[2019-07-14] MEDS: Thiamine 100mg tab ORAL SCH (08:30)
[2019-07-14] MEDS: Pantoprazole Inj IVP SCH (08:30)
[2019-07-14] MEDS: Azithromycin 250mg tab ORAL SCH (08:30)
--- NOTE | 2019-07-14 09:16 | NUR ---
RD ASSESSMENT & RECOMMENDATIONS SEE CARE ACTIVITY FOR COMPLETE ASSESSMENT DAILY ESTIMATED NEEDS: Needs based on Cirrhosis/ 60kg abw 25-30 kcals/kg 1510-2024 total kcals 1-1.5 g protein/kg 60-90 g total protein 25-30 mL/kg 5219-2894 total fluid mLs NUTRITION DIAGNOSIS: * Altered nutrition related lab values R/T cirrhosis, h/o ETOH abuse, clinical condition as evidenced by elev AST and T bili (1.6), elev NH3 (85), low K (3.0), low mag (1.7), low folate (5.1) * Swallowing difficulty R/T confusion, encephalopathy as evidenced by pt on liquify puree texture diet, poor po intake per kcal count. (UPDATED) CURRENT DIET:Cardiac liquify puree w/ NTL + ensure TID PO DIET RECOMMENDATIONS: WHEN SAFE FOR ORAL DIET -> LOW NA/ texture per [employer] ADDITIONAL RECOMMENDATIONS: * Calibrated bedscale wt for accurate CBW Bedscale wt: 157lbs vs EMR wt: 180lbs * Monitor lytes daily, replete as needed (low K and mag) * [employer] evaluation for appropriate texture * Monitor BG for hypoglycemia/ rec pm snack * Add MVI x 1 * Maintain Ensure Enlive TID w/ meals
--- NOTE | 2019-07-14 09:16 | NUR ---
NURSE NOTES: Spoke with Gaby from dietitian, per dietitian patient is finished with calorie count. Noted.
[2019-07-14 09:20] LABS: HEMATOCRIT 29.1 % (42.0-52.0); HEMOGLOBIN 8.6 G/DL (14.2-18.0); MEAN CORPUSCULAR VOLUME 95 FL (80-99); PLATELET COUNT 99 K/UL (150-450); RED BLOOD COUNT 3.07 M/UL (4.70-6.10); RED CELL DISTRIBUTION WIDTH 25.2 % (11.6-14.8); WHITE BLOOD COUNT 5.6 K/UL (4.8-10.8)
[2019-07-14 10:18] LABS: ANION GAP 8 mmol/L (5-15); BLOOD UREA NITROGEN 8 mg/dL (7-18); CALCIUM 8.8 MG/DL (8.5-10.1); CARBON DIOXIDE 24 MMOL/L (21-32); CHLORIDE 118 MMOL/L (98-107); CREATININE 1.2 MG/DL (0.55-1.30); POTASSIUM 3.9 MMOL/L (3.5-5.1); SODIUM 150 MMOL/L (136-145)
--- NOTE | 2019-07-14 11:48 | Surgery Progress Note ---
Surgery Progress Note Subjective Additional Comments Patient seen and examined bedside. No acute events. Seemingly comfortable. Labs improved. Hemoglobin stable. Tolerating diet. Objective Last 24 Hour Vital Signs Date Time Temp Pulse Resp B/P (MAP) Pulse Ox O2 Delivery O2 Flow Rate FiO2 07/14/19 09:00 Room Air 07/14/19 08:00 89 07/14/19 08:00 98.4 82 18 110/68 (82) 95 07/14/19 04:00 98.2 89 18 107/67 (80) 95 07/14/19 04:00 89 07/14/19 00:00 97.9 82 18 106/65 (79) 96 07/14/19 00:00 82 07/13/19 21:00 Room Air 07/13/19 20:00 85 07/13/19 20:00 97.4 85 18 121/68 (85) 95 07/13/19 16:00 97.4 85 18 99/64 (76) 95 07/13/19 16:00 89 07/13/19 12:00 97.3 88 18 100/69 (79) 96 07/13/19 12:00 87 I&O Intake and Output 07/13/19 07/14/19 19:00 07:00 Intake Total 900 ml 55 ml Output Total 1000 ml 500 ml Balance -100 ml -445 ml Intake Oral 900 ml IV Total 55 ml Output Urine Total 1000 ml 500 ml # Voids 1 # Bowel Movements 1 Dressing: other Wound: other Drains: other Cardiovascular: RSR Respiratory: decreased breath sounds Abdomen: soft, distended, non-tender, present bowel sounds Extremities: no tenderness, no cyanosis Laboratory Tests Test 07/14/19 06:29 White Blood Count 5.6 K/UL (4.8-10.8) Red Blood Count 3.07 M/UL (4.70-6.10) L Hemoglobin 8.6 G/DL (14.2-18.0) L Hematocrit 29.1 % (42.0-52.0) L Mean Corpuscular Volume 95 FL (80-99) Mean Corpuscular Hemoglobin 27.9 PG (27.0-31.0) Mean Corpuscular Hemoglobin Concent 29.4 G/DL (32.0-36.0) L Red Cell Distribution Width 25.2 % (11.6-14.8) H Platelet Count 99 K/UL (150-450) L Mean Platelet Volume 6.6 FL (6.5-10.1) Neutrophils (%) (Auto) % (45.0-75.0) Lymphocytes (%) (Auto) % (20.0-45.0) Monocytes (%) (Auto) % (1.0-10.0) Eosinophils (%) (Auto) % (0.0-3.0) Basophils (%) (Auto) % (0.0-2.0) Differential Total Cells Counted 100 Neutrophils % (Manual) 68 % (45-75) Lymphocytes % (Manual) 19 % (20-45) L Monocytes % (Manual) 13 % (1-10) H Eosinophils % (Manual) 0 % (0-3) Basophils % (Manual) 0 % (0-2) Band Neutrophils 0 % (0-8) Platelet Estimate Decreased L Platelet Morphology Normal Hypochromasia 1+ Anisocytosis 2+ Sodium Level 150 MMOL/L (136-145) H Potassium Level 3.9 MMOL/L (3.5-5.1) Chloride Level 118 MMOL/L (98-107) H Carbon Dioxide Level 24 MMOL/L (21-32) Anion Gap 8 mmol/L (5-15) Blood Urea Nitrogen 8 mg/dL (7-18) Creatinine 1.2 MG/DL (0.55-1.30) Estimat Glomerular Filtration Rate > 60 mL/min (>60) Glucose Level 67 MG/DL (74-106) L Calcium Level 8.8 MG/DL (8.5-10.1) Magnesium Level 1.6 MG/DL (1.8-2.4) L Plan Problems: (1) Abdominal distension Assessment & Plan: Abdominal distention from ascites as he has significant liver dysfunction para with 8L fluid without malignant cells micro with bacteremia labs stable and improving . exam stable Findings: There is ascites fluid present. Gallbladder is unremarkable, without stones, wall thickening, nor pericholecystic fluid. Sonographic Washington's sign is negative. Common bile duct measures 3 mm in diameter. No intrahepatic biliary ductal dilatation. Liver demonstrates slightly increased echogenicity. No focal abnormality. It demonstrates surface nodularity. Portal vein and hepatic veins are patent. Pancreas is obscured by bowel gas. Spleen is unremarkable. Left kidney measures 11.4 cm in length. Right kidney measures 11.1 cm length. Both kidneys demonstrate normal echogenicity. There is no hydronephrosis. No focal abnormality . Abdominal aorta is partially obscured by bowel gas, visualized portions are non-aneurysmal . Impression: Hepatic surface nodularity, suggestive of cirrhosis. Ascites Negative for gallstones or dilated bile ducts (2) Facial trauma Assessment & Plan: Findings: No acute intracranial hemorrhage or edema. No mass effect or midline shift. Normal hardy-white differentiation. Slightly prominent for age ventricles and extra axial CSF spaces. Mild periventricular deep white matter low-attenuation consistent with chronic microvascular ischemic changes noted Questionable minimal left supraorbital scalp contusion. Intact calvarium. Visualized orbits and sinuses are unremarkable. The mastoids are clear. unknown if fall or assault lip with dry blood and in medial aspect small oozing - resolved apply dressing prn thank you Alvin James Jul 14, 2019 11:48
[2019-07-14 11:54] VITALS: BP 117/78
--- NOTE | 2019-07-14 12:15 | NUR ---
NURSE NOTES: Contacted Dr. Freeman regarding medication order about to : Azithromycin 500 mg PO QD and Rifaximin 550 mg PO Q12HR, medications renewed. Also informed MD that patient's magnesium level is 1.6 and that order for Magnesium sulfate 1 gm IV x 2 was given by HUNTER Castellanos; and glucose level this AM was 67, accuchek was done and was 102 mg/dL. Dr. Freeman acknowledged, no new orders given. Noted. Will continue to monitor patient.
[2019-07-14] MEDS ORDERED: Tubing IV Secondary IV ONE (15:05)
--- NOTE | 2019-07-14 15:38 | General Progress Note ---
Assessment/Plan Status: unchanged Assessment/Plan: 48-year-old male with past medical history of ETOH abuse presented found down. Overall improving #Encephalopathy likely multifactorial including hepatic encephalopathy ( elevated ammonia), as well as sepsis with bacteremia due to MSSA. #Sepsis secondary to bacteremia due to MSSA -s/p vancomycin and Zosyn (07/06), now cefazolin per ID recs -Infectious disease consult, appreciate recs #Hypernatremia D5W @ 75 ml/rh, encourage PO intake # Lice - primerin treatment - Ordered to clip hair as persistent lice noted despite 2 shampoo treatment #Liver cirrhosis secondary to EtOH # ETOH withdrawal. Libirum being used. - DF 31 -MELD 15 -Abdominal ultrasound reviewed -Status post paracentesis 07/05/2019 with removal of 8 L. -Albumin for BP support as needed -Supportive care - lactulose FL - Repeat paracentesis not done due to elevated INR #Anemia, likely might multifactorial including acute blood loss anemia, anemia of chronic disease -Hematology consult, appreciate recs -Iron panel: Reviewed -Low folate: Replace -B12 within normal limits above 800 -GI consult, appreciate recs. HOLD OFF NGT for now due to risk with possible esophageal varices. PENDING EGD per GI decision. Patient is gradually waking up and eating is still a problem. MONITOR closely as he is now 9 days into the Hospital stay. #Thrombocytopenia -due to cirrhosis- stable #Substance abuse -Nodular liver in ultrasound suggestive of cirrhosis -Check hepatitis and HIV: hiv neg, hep pending -Social work Consult - Psyche consult, appreciate recs #Hypokalemia Replace as needed # Hypomagnesemia Replace today # Hypocalcemia - replace as needed #Dysphagia -Etiology due to agitation, likely due underlying hepatic encephalopathy vs side effect of Ativan #full code # Disposition SW and CM follow up needed. Homeless. The time of my note may not reflect the time of my patient encounter. I spent 40 minutes on this encounter, greater than 50 percent in counseling and care coordination Subjective Date patient seen: Jul 14, 2019 ROS Limited/Unobtainable: No Constitutional: Denies: no symptoms, chills, diaphoresis, fever, malaise, weakness, other Cardiovascular: Denies: no symptoms, chest pain, edema, irregular heart rate, lightheadedness, palpitations, syncope, other Respiratory: Denies: no symptoms, cough, orthopnea, shortness of breath, SOB with excertion, SOB at rest, sputum, stridor, wheezing, other Gastrointestinal/Abdominal: Denies: no symptoms, abdomen distended, abdominal pain, black stools, tarry stools, blood in stool, constipated, diarrhea, difficulty swallowing, nausea, poor appetite, poor fluid intake, rectal bleeding , vomiting, other Genitourinary: Denies: no symptoms, burning, discharge, frequency, flank pain, hematuria, incontinence, pain, urgency, other Endocrine: Denies: no symptoms, excessive sweating, flushing, intolerance to cold, intolerance to heat, increased hunger, increased thirst, increased urine, unexplained weight gain, unexplained weight loss, other Allergies: Coded Allergies: No Known Allergies (Unverified , 07/03/19) Subjective seen and examined. Only oriented to self. looks comfortable. Sodium worsening. Tolerating diet Objective Last 24 Hour Vital Signs Date Time Temp Pulse Resp B/P (MAP) Pulse Ox O2 Delivery O2 Flow Rate FiO2 07/14/19 12:00 88 07/14/19 11:54 98.6 90 18 117/78 (91) 98 07/14/19 09:00 Room Air 07/14/19 08:00 89 07/14/19 08:00 98.4 82 18 110/68 (82) 95 07/14/19 04:00 98.2 89 18 107/67 (80) 95 07/14/19 04:00 89 07/14/19 00:00 97.9 82 18 106/65 (79) 96 07/14/19 00:00 82 07/13/19 21:00 Room Air 07/13/19 20:00 85 07/13/19 20:00 97.4 85 18 121/68 (85) 95 07/13/19 16:00 97.4 85 18 99/64 (76) 95 07/13/19 16:00 89 Intake and Output 07/13/19 07/14/19 18:59 06:59 Intake Total 900 ml 55 ml Output Total 1000 ml 500 ml Balance -100 ml -445 ml Intake Oral 900 ml IV Total 55 ml Output Urine Total 1000 ml 500 ml # Voids 1 # Bowel Movements 1 Laboratory Tests 07/14/19 06:29: White Blood Count 5.6, Red Blood Count 3.07L, Hemoglobin 8.6L, Hematocrit 29.1L , Mean Corpuscular Volume 95, Mean Corpuscular Hemoglobin 27.9, Mean Corpuscular Hemoglobin Concent 29.4L, Red Cell Distribution Width 25.2H, Platelet Count 99L, Mean Platelet Volume 6.6, Neutrophils (%) (Auto) , Lymphocytes (%) (Auto) , Monocytes (%) (Auto) , Eosinophils (%) (Auto) , Basophils (%) (Auto) , Differential Total Cells Counted 100, Neutrophils % ( Manual) 68, Lymphocytes % (Manual) 19L, Monocytes % (Manual) 13H, Eosinophils % (Manual) 0, Basophils % (Manual) 0, Band Neutrophils 0, Platelet Estimate DecreasedL, Platelet Morphology Normal, Hypochromasia 1+, Anisocytosis 2+, Sodium Level 150H, Potassium Level 3.9, Chloride Level 118H, Carbon Dioxide Level 24, Anion Gap 8, Blood Urea Nitrogen 8, Creatinine 1.2, Estimat Glomerular Filtration Rate > 60, Glucose Level 67L, Calcium Level 8.8, Magnesium Level 1.6L Height (Feet): 5 Height (Inches): 8.00 Weight (Pounds): 157 General Appearance: no apparent distress EENT: PERRL/EOMI Neck: supple Cardiovascular: normal rate, regular rhythm Respiratory/Chest: chest wall non-tender, lungs clear, normal breath sounds Abdomen: non tender, soft Extremities: normal range of motion Skin: normal pigmentation Objective General Appearance: moderate distress EENT: PERRL/EOMI, normal ENT inspection Cardiovascular: normal rate Respiratory/Chest: lungs clear Abdomen: distended, hepatomegaly Edema: trace edema 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 Jul 14, 2019 15:38
[2019-07-14 16:00] VITALS: BP 121/79
--- NOTE | 2019-07-14 16:37 | NUR ---
NURSE NOTES: Dr. Muñoz seen and examined patient. Ordered D5W at 100 ml/hr. Dr. Muñoz noted patient's glucose level and sodium level today. Order entered, noted, and carried out. Will continue to monitor patient.
--- NOTE | 2019-07-14 19:27 | NUR ---
HAND-OFF: Report given to JOSEFINA Lino.
--- NOTE | 2019-07-14 19:30 | NUR ---
NURSE NOTES: Received Pt is sleeping on the bed and no sign of acute distress noted. Pt is confused. On tele monitor with SR. IV site intact and no sign of infiltration noted. Placed fall precaution. Will continue to care plan.
[2019-07-14 20:00] VITALS: BP 106/65
[2019-07-15] VITALS: BP 112/74
[2019-07-15] MEDS: ceFAZolin sod 2 GM in NS 55 ML IVP SCH ×3 (01:11→17:12)
[2019-07-15 04:00] VITALS: BP 115/78
--- NOTE | 2019-07-15 07:29 | NUR ---
HAND-OFF: Report given to JOSEFINA Ceron. Pt is sleeping on the bed and no sign of acute distress noted.
--- NOTE | 2019-07-15 07:31 | NUR ---
NURSE NOTES: Received report from JOSEFINA Lino. The patient is sleeping on the bed without acute distress or shortness of breath. The patient's bed in the lowest position, call light in reach, and fall, aspiration, and seizure precaution reinforced. IV site on right FA 20G intact and patent. Will continue plan of care.
[2019-07-15 08:00] VITALS: BP 107/71
--- NOTE | 2019-07-15 08:43 | General Progress Note ---
Assessment/Plan Status: progressing, unchanged Assessment/Plan: 48-year-old male with past medical history of ETOH abuse presented found down. Overall improving #Encephalopathy likely multifactorial including hepatic encephalopathy ( elevated ammonia), as well as sepsis with bacteremia due to MSSA. #Sepsis secondary to bacteremia due to MSSA -s/p vancomycin and Zosyn (07/06), now cefazolin per ID recs -Infectious disease consult, appreciate recs #Hypernatremia D5W @ 75 ml/rh, encourage PO intake # Lice - primerin treatment - Ordered to clip hair as persistent lice noted despite 2 shampoo treatment #Liver cirrhosis secondary to EtOH # ETOH withdrawal. Libirum being used. - DF 31 -MELD 15 -Abdominal ultrasound reviewed -Status post paracentesis 07/05/2019 with removal of 8 L. -Albumin for BP support as needed -Supportive care - lactulose WA - Repeat paracentesis 07/16. Recheck INR, VIT K and ffp as needed #Anemia, likely might multifactorial including acute blood loss anemia, anemia of chronic disease -Hematology consult, appreciate recs -Iron panel: Reviewed -Low folate: Replace -B12 within normal limits above 800 -GI consult, appreciate recs. HOLD OFF NGT for now due to risk with possible esophageal varices. PENDING EGD per GI decision. Patient is gradually waking up and eating is still a problem. MONITOR closely as he is now 9 days into the Hospital stay. #Thrombocytopenia -due to cirrhosis- stable #Substance abuse -Nodular liver in ultrasound suggestive of cirrhosis -Check hepatitis and HIV: hiv neg, hep pending -Social work Consult - Psyche consult, appreciate recs #Hypokalemia Replace as needed, will replace today # Hypomagnesemia Replace today # Hypocalcemia - replace as needed #Dysphagia -Etiology due to agitation, likely due underlying hepatic encephalopathy vs side effect of Ativan #full code # Disposition SW and CM follow up needed. Homeless. The time of my note may not reflect the time of my patient encounter. I spent 40 minutes on this encounter, greater than 50 percent in counseling and care coordination Subjective Date patient seen: Jul 15, 2019 ROS Limited/Unobtainable: Yes Allergies: Coded Allergies: No Known Allergies (Unverified , 07/03/19) Subjective seen and examined. looks comfortable. Tolerating diet Sodium improved on D5W Hypokalemic Received vit k, For paracentesis tomorrow Objective Last Hour Vital Signs Date Time Temp Pulse Resp B/P (MAP) Pulse Ox O2 Delivery O2 Flow Rate FiO2 07/15/19 04:00 98.4 88 20 115/78 (90) 96 07/15/19 04:00 83 07/15/19 00:00 98.0 83 20 112/74 (87) 97 07/15/19 00:00 83 07/14/19 21:00 Room Air 07/14/19 20:00 97.8 85 18 106/65 (79) 98 07/14/19 20:00 81 07/14/19 16:00 98.6 87 18 121/79 (93) 98 07/14/19 16:00 84 07/14/19 12:00 88 07/14/19 11:54 98.6 90 18 117/78 (91) 98 07/14/19 09:00 Room Air Intake and Output 07/14/19 07/15/19 19:00 07:00 Intake Total 1015 ml 1218 ml Balance 1015 ml 1218 ml IV Total 365 ml 1218 ml Other 650 ml # Voids 4 # Bowel Movements 2 1 Laboratory Tests 07/15/19 06:45: Magnesium Level 1.7L Height (Feet): 5 Height (Inches): 8.00 Weight (Pounds): 157 Objective General Appearance: moderate distress EENT: PERRL/EOMI, normal ENT inspection Cardiovascular: normal rate Respiratory/Chest: lungs clear Abdomen: distended, hepatomegaly Edema: trace edema Neurologic: corn husk baler II-XII 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 Jul 15, 2019 08:43
[2019-07-15] MEDS: Lactulose 20gm/30ml UDC ORAL SCH ×3 (08:47→17:12)
[2019-07-15] MEDS: Thiamine 100mg tab ORAL SCH (08:48)
[2019-07-15] MEDS: Azithromycin 250mg tab ORAL SCH (08:48)
--- NOTE | 2019-07-15 10:05 | NUR ---
NURSE NOTES: Notified Dr. Muñoz regarding scheduled US guided paracentesis tomorrow. Dr. Muñoz ordered lab including ammonia, pt/ptt, Mg, CBC. Dr. Muñoz ordered Magnesium 1gram x2 for replacement. Carried out the order.
--- NOTE | 2019-07-15 10:17 | GI Progress Note ---
Assessment/Plan Problems: (1) Ascites ICD Codes: R18.8 - Other ascites SNOMED: 839008416 (2) Cirrhosis ICD Codes: K74.60 - Unspecified cirrhosis of liver SNOMED: 26486364 (3) Abdominal distension ICD Codes: R14.0 - Abdominal distension (gaseous) SNOMED: 34921554 (4) Acute alcoholic intoxication ICD Codes: F10.929 - Alcohol use, unspecified with intoxication, unspecified SNOMED: 85075643, 4102842 Qualifiers: Qualified Codes: F10.929 - Alcohol use, unspecified with intoxication, unspecified (5) Anemia ICD Codes: D64.9 - Anemia, unspecified SNOMED: 867164386 Qualifiers: Qualified Codes: D64.9 - Anemia, unspecified Status: unchanged Status Narrative Discussed with Dr. Guzman. Assessment/Plan Assessment (1) Anemia (2) Acute alcoholic intoxication (3) Cirrhosis (4) Ascites (5) Encephalopathy / delirium (6) abnormal lytes tolerating diet no obvious GIB per nurses Recommendations paracentesis pending vit k given fu stool ob protonix eating better today, continue to push PO on librium now hold GT or NGT plans for now The patient was seen and examined at bedside and all new and available data was reviewed in the patients chart. I agree with the above findings, impression and plan. (Patient seen earlier today. Signature stamp does not reflect patient encounter time.). - Robert Guzman MD Subjective Subjective limited Objective Last 24 Hour Vital Signs Date Time Temp Pulse Resp B/P (MAP) Pulse Ox O2 Delivery O2 Flow Rate FiO2 07/15/19 08:00 97.0 79 20 107/71 (83) 98 07/15/19 04:00 98.4 88 20 115/78 (90) 96 07/15/19 04:00 83 07/15/19 00:00 98.0 83 20 112/74 (87) 97 07/15/19 00:00 83 07/14/19 21:00 Room Air 07/14/19 20:00 97.8 85 18 106/65 (79) 98 07/14/19 20:00 81 07/14/19 16:00 98.6 87 18 121/79 (93) 98 07/14/19 16:00 84 07/14/19 12:00 88 07/14/19 11:54 98.6 90 18 117/78 (91) 98 Intake and Output 07/14/19 07/15/19 19:00 07:00 Intake Total 1015 ml 1218 ml Balance 1015 ml 1218 ml IV Total 365 ml 1218 ml Other 650 ml # Voids 4 # Bowel Movements 2 1 Laboratory Tests Test 07/15/19 06:45 White Blood Count Pending Red Blood Count Pending Hemoglobin Pending Hematocrit Pending Mean Corpuscular Volume Pending Mean Corpuscular Hemoglobin Pending Mean Corpuscular Hemoglobin Concent Pending Red Cell Distribution Width Pending Platelet Count Pending Mean Platelet Volume Pending Neutrophils (%) (Auto) Pending Lymphocytes (%) (Auto) Pending Monocytes (%) (Auto) Pending Eosinophils (%) (Auto) Pending Basophils (%) (Auto) Pending Sodium Level Pending Potassium Level Pending Chloride Level Pending Carbon Dioxide Level Pending Blood Urea Nitrogen Pending Creatinine Pending Estimat Glomerular Filtration Rate Pending Glucose Level Pending Calcium Level Pending Magnesium Level 1.7 MG/DL (1.8-2.4) L Total Bilirubin Pending Aspartate Amino Transf (AST/SGOT) Pending Alanine Aminotransferase (ALT/SGPT) Pending Alkaline Phosphatase Pending Total Protein Pending Albumin Pending Globulin Pending Height (Feet): 5 Height (Inches): 8.00 Weight (Pounds): 157 General Appearance: no apparent distress Cardiovascular: normal rate Respiratory/Chest: normal breath sounds, no respiratory distress Abdominal Exam: normal bowel sounds, non tender, soft Extremities: non-tender Maraym Castellanos NP Jul 15, 2019 10:17
[2019-07-15 10:21] LABS: BASOPHILS % (AUTO) 1.2 % (0.0-2.0); EOSINOPHILS % (AUTO) 0.9 % (0.0-3.0); HEMATOCRIT 29.6 % (42.0-52.0); HEMOGLOBIN 8.8 G/DL (14.2-18.0); LYMPHOCYTES % (AUTO) 21.8 % (20.0-45.0); MEAN CORPUSCULAR VOLUME 94 FL (80-99); MONOCYTES % (AUTO) 11.4 % (1.0-10.0); NEUTROPHILS % (AUTO) 64.6 % (45.0-75.0); PLATELET COUNT 104 K/UL (150-450); RED BLOOD COUNT 3.17 M/UL (4.70-6.10); RED CELL DISTRIBUTION WIDTH 23.8 % (11.6-14.8)
[2019-07-15 12:00] VITALS: BP 113/69
[2019-07-15 12:06] LABS: INR 1.6 (0.9-1.1)
[2019-07-15 12:59] LABS: ALANINE AMINOTRANSFERASE 24 U/L (12-78); ALBUMIN 1.1 G/DL (3.4-5.0); ALBUMIN/GLOBULIN RATIO 0.2 (1.0-2.7); ALKALINE PHOSPHATASE 99 U/L (46-116); ANION GAP 11 mmol/L (5-15); ASPARTATE AMINO TRANSFERASE 79 U/L (15-37); BLOOD UREA NITROGEN 9 mg/dL (7-18); CALCIUM 8.6 MG/DL (8.5-10.1); CARBON DIOXIDE 21 MMOL/L (21-32); CHLORIDE 114 MMOL/L (98-107); CREATININE 1.2 MG/DL (0.55-1.30); POTASSIUM 3.1 MMOL/L (3.5-5.1); SODIUM 146 MMOL/L (136-145)
--- NOTE | 2019-07-15 13:54 | Surgery Progress Note ---
Surgery Progress Note Subjective Additional Comments mateo cute events dong well stable Objective Last 24 Hour Vital Signs Date Time Temp Pulse Resp B/P (MAP) Pulse Ox O2 Delivery O2 Flow Rate FiO2 07/15/19 12:00 87 07/15/19 12:00 97.0 86 18 113/69 (84) 98 07/15/19 09:00 Room Air 07/15/19 08:00 70 07/15/19 08:00 97.0 79 20 107/71 (83) 98 07/15/19 04:00 98.4 88 20 115/78 (90) 96 07/15/19 04:00 83 07/15/19 00:00 98.0 83 20 112/74 (87) 97 07/15/19 00:00 83 07/14/19 21:00 Room Air 07/14/19 20:00 97.8 85 18 106/65 (79) 98 07/14/19 20:00 81 07/14/19 16:00 98.6 87 18 121/79 (93) 98 07/14/19 16:00 84 I&O Intake and Output 07/14/19 07/15/19 19:00 07:00 Intake Total 1015 ml 1218 ml Balance 1015 ml 1218 ml IV Total 365 ml 1218 ml Other 650 ml # Voids 4 # Bowel Movements 2 1 Dressing: other Wound: other Cardiovascular: RSR Respiratory: clear Abdomen: soft, distended, non-tender, present bowel sounds Extremities: no tenderness, no cyanosis Laboratory Tests Test 07/15/19 06:45 07/15/19 11:10 White Blood Count 8.0 K/UL (4.8-10.8) Red Blood Count 3.17 M/UL (4.70-6.10) L Hemoglobin 8.8 G/DL (14.2-18.0) L Hematocrit 29.6 % (42.0-52.0) L Mean Corpuscular Volume 94 FL (80-99) Mean Corpuscular Hemoglobin 27.9 PG (27.0-31.0) Mean Corpuscular Hemoglobin Concent 29.8 G/DL (32.0-36.0) L Red Cell Distribution Width 23.8 % (11.6-14.8) H Platelet Count 104 K/UL (150-450) L Mean Platelet Volume 7.1 FL (6.5-10.1) Neutrophils (%) (Auto) 64.6 % (45.0-75.0) Lymphocytes (%) (Auto) 21.8 % (20.0-45.0) Monocytes (%) (Auto) 11.4 % (1.0-10.0) H Eosinophils (%) (Auto) 0.9 % (0.0-3.0) Basophils (%) (Auto) 1.2 % (0.0-2.0) Sodium Level 146 MMOL/L (136-145) H Potassium Level 3.1 MMOL/L (3.5-5.1) L Chloride Level 114 MMOL/L (98-107) H Carbon Dioxide Level 21 MMOL/L (21-32) Anion Gap 11 mmol/L (5-15) Blood Urea Nitrogen 9 mg/dL (7-18) Creatinine 1.2 MG/DL (0.55-1.30) Estimat Glomerular Filtration Rate > 60 mL/min (>60) Glucose Level 93 MG/DL (74-106) Calcium Level 8.6 MG/DL (8.5-10.1) Magnesium Level 1.7 MG/DL (1.8-2.4) L Total Bilirubin Pending Aspartate Amino Transf (AST/SGOT) 79 U/L (15-37) H Alanine Aminotransferase (ALT/SGPT) 24 U/L (12-78) Alkaline Phosphatase 99 U/L (46-116) Total Protein 7.4 G/DL (6.4-8.2) Albumin 1.1 G/DL (3.4-5.0) L Globulin 6.3 g/dL Albumin/Globulin Ratio 0.2 (1.0-2.7) L Prothrombin Time 16.4 SEC (9.30-11.50) H Prothromb Time International Ratio 1.6 (0.9-1.1) H Activated Partial Thromboplast Time 39 SEC (23-33) H Ammonia 49 umol/L (11-32) H Plan Problems: (1) Abdominal distension Assessment & Plan: Abdominal distention from ascites as he has significant liver dysfunction para with 8L fluid without malignant cells micro with bacteremia labs stable and improving . exam stable Findings: There is ascites fluid present. Gallbladder is unremarkable, without stones, wall thickening, nor pericholecystic fluid. Sonographic [place]'s sign is negative. Common bile duct measures 3 mm in diameter. No intrahepatic biliary ductal dilatation. Liver demonstrates slightly increased echogenicity. No focal abnormality. It demonstrates surface nodularity. Portal vein and hepatic veins are patent. Pancreas is obscured by bowel gas. Spleen is unremarkable. Left kidney measures 11.4 cm in length. Right kidney measures 11.1 cm length. Both kidneys demonstrate normal echogenicity. There is no hydronephrosis. No focal abnormality . Abdominal aorta is partially obscured by bowel gas, visualized portions are non-aneurysmal . Impression: Hepatic surface nodularity, suggestive of cirrhosis. Ascites Negative for gallstones or dilated bile ducts (2) Facial trauma Assessment & Plan: Findings: No acute intracranial hemorrhage or edema. No mass effect or midline shift. Normal hardy-white differentiation. Slightly prominent for age ventricles and extra axial CSF spaces. Mild periventricular deep white matter low-attenuation consistent with chronic microvascular ischemic changes noted Questionable minimal left supraorbital scalp contusion. Intact calvarium. Visualized orbits and sinuses are unremarkable. The mastoids are clear. unknown if fall or assault lip with dry blood and in medial aspect small oozing - resolved apply dressing prn thank you Alvin James Jul 15, 2019 13:54
--- NOTE | 2019-07-15 14:14 | NUR ---
NURSE NOTES: Dr. Muñoz ordered 40mEq KCL for potassium level of 3.1. Will administer medication as prescribed. Will continue plan of care.
--- NOTE | 2019-07-15 15:08 | NUR ---
NURSE NOTES: The patient is still agitated but stable in terms of vital signs. Will continue plan of care.
--- NOTE | 2019-07-15 15:29 | Infectious Diseases Prog Note ---
Assessment/Plan Assessment/Plan A) 1) mssa bacteremia (correction, not mrsa on previous noteds, pna, sepsis, fevers, chest x-ray now with atx 2) liver cirrhosis 3) anemia 4) allergies - nkda 5) hx substance abuse 6) d/w RN, -nc 7) d/w RN P) 1) ancef - day # 9 iv abx - plan on 14 days iv abx then 2 weeks oral keflex 2) check labs, chest-x-ray, monitor labs 3) s/p tx for head lice 4) surveillance blood cultures negative 5) will f/u Subjective Constitutional: Denies: fever HEENT: Denies: congestion Respiratory: Denies: shortness of breath Cardiovascular: Denies: chest pain Gastrointestinal/Abdominal: Denies: nausea, vomiting, diarrhea Genitourinary: Denies: dysuria, hematuria Neurologic: Denies: headache Psychiatric: Denies: depression Skin: Denies: rash Hematologic: Denies: bleeding Musculoskeletal: Denies: pain Allergies: Coded Allergies: No Known Allergies (Unverified , 07/03/19) Objective Vital Signs Last 24 Hour Vital Signs Date Time Temp Pulse Resp B/P (MAP) Pulse Ox O2 Delivery O2 Flow Rate FiO2 07/15/19 12:00 87 07/15/19 12:00 97.0 86 18 113/69 (84) 98 07/15/19 09:00 Room Air 07/15/19 08:00 70 07/15/19 08:00 97.0 79 20 107/71 (83) 98 07/15/19 04:00 98.4 88 20 115/78 (90) 96 07/15/19 04:00 83 07/15/19 00:00 98.0 83 20 112/74 (87) 97 07/15/19 00:00 83 07/14/19 21:00 Room Air 07/14/19 20:00 97.8 85 18 106/65 (79) 98 07/14/19 20:00 81 07/14/19 16:00 98.6 87 18 121/79 (93) 98 07/14/19 16:00 84 Height (Feet): 5 Height (Inches): 8.00 Weight (Pounds): 157 General Appearance: no acute distress HEENT: normocephalic, atraumatic, anicteric Respiratory/Chest: lungs clear, normal breath sounds, no respiratory distress, no accessory muscle use Cardiovascular: normal rate, regular rhythm, no gallop/murmur, no JVD Abdomen: normal bowel sounds, soft, non tender, distended Extremities: no cyanosis Skin: no rash Neurologic/Psychiatric: mid level developer II-XII grossly normal, alert, responsive Lymphatic: no neck adenopathy Musculoskeletal: no effusion Objective 07/09/19 - chest x-ray - Comparison: 07/06/2019 Findings: Bilateral interstitial disease has developed in the interim. There may be some patchy retrocardiac consolidation as well which is unchanged. The left costophrenic angle remains blunted. The heart is borderline enlarged Impression: Development of bilateral interstitial infiltrates versus edema, over 3 days. Persistent patchy retrocardiac consolidation and possible small left pleural effusion 07/12/19 - chest x-ray - Comparison: 07/09/2019 A single view chest radiograph was obtained. Findings: Basal atelectasis demonstrated with low lung volumes. Heart size is stable and within normal limits. IMPRESSION: No change compared to the previous exam. Basal atelectasis Microbiology Date/Time Source Procedure Growth Status 07/09/19 12:40 Blood Blood Culture - Final NO GROWTH AFTER 5 DAYS Complete 07/05/19 15:00 Body Fluid Peritoneal Gram Stain - Final Complete 07/05/19 15:00 Body Fluid Peritoneal Body Fluid Culture - Final NO GROWTH Complete 07/13/19 11:00 Sputum Induced Gram Stain - Final Resulted 07/13/19 11:00 Sputum Culture - Preliminary Sabrina Albicans Resulted 07/07/19 19:19 Straight Cath Urine Culture - Final NO GROWTH AFTER 48 HOURS Complete 07/03/19 22:40 Rectum VRE Culture - Final NO VANCOMYCIN RESISTANT ENTEROCOCCUS ... Complete Microbiology Date/Time Source Procedure Growth Status 07/13/19 11:00 Sputum Induced Gram Stain - Final Resulted 07/13/19 11:00 Sputum Culture - Preliminary Sabrina Albicans Resulted Laboratory Tests Test 07/15/19 06:45 07/15/19 11:10 White Blood Count 8.0 K/UL (4.8-10.8) Red Blood Count 3.17 M/UL (4.70-6.10) L Hemoglobin 8.8 G/DL (14.2-18.0) L Hematocrit 29.6 % (42.0-52.0) L Mean Corpuscular Volume 94 FL (80-99) Mean Corpuscular Hemoglobin 27.9 PG (27.0-31.0) Mean Corpuscular Hemoglobin Concent 29.8 G/DL (32.0-36.0) L Red Cell Distribution Width 23.8 % (11.6-14.8) H Platelet Count 104 K/UL (150-450) L Mean Platelet Volume 7.1 FL (6.5-10.1) Neutrophils (%) (Auto) 64.6 % (45.0-75.0) Lymphocytes (%) (Auto) 21.8 % (20.0-45.0) Monocytes (%) (Auto) 11.4 % (1.0-10.0) H Eosinophils (%) (Auto) 0.9 % (0.0-3.0) Basophils (%) (Auto) 1.2 % (0.0-2.0) Sodium Level 146 MMOL/L (136-145) H Potassium Level 3.1 MMOL/L (3.5-5.1) L Chloride Level 114 MMOL/L (98-107) H Carbon Dioxide Level 21 MMOL/L (21-32) Anion Gap 11 mmol/L (5-15) Blood Urea Nitrogen 9 mg/dL (7-18) Creatinine 1.2 MG/DL (0.55-1.30) Estimat Glomerular Filtration Rate > 60 mL/min (>60) Glucose Level 93 MG/DL (74-106) Calcium Level 8.6 MG/DL (8.5-10.1) Magnesium Level 1.7 MG/DL (1.8-2.4) L Total Bilirubin 1.0 MG/DL (0.2-1.0) Aspartate Amino Transf (AST/SGOT) 79 U/L (15-37) H Alanine Aminotransferase (ALT/SGPT) 24 U/L (12-78) Alkaline Phosphatase 99 U/L (46-116) Total Protein 7.4 G/DL (6.4-8.2) Albumin 1.1 G/DL (3.4-5.0) L Globulin 6.3 g/dL Albumin/Globulin Ratio 0.2 (1.0-2.7) L Prothrombin Time 16.4 SEC (9.30-11.50) H Prothromb Time International Ratio 1.6 (0.9-1.1) H Activated Partial Thromboplast Time 39 SEC (23-33) H Ammonia 49 umol/L (11-32) H Current Medications Medications (Trade) Dose Ordered Sig/Tanja Route PRN Reason Start Time Stop Time Status Last Admin Dose Admin Azithromycin (Zithromax) 500 mg DAILY ORAL 07/15/19 09:00 07/22/19 08:59 07/15/19 08:48 Cefazolin Sodium 2 gm/Sodium Chloride 55 ml @ 110 mls/hr Q8H IVP 07/13/19 17:00 07/20/19 16:59 07/15/19 08:55 Dextrose 1,000 ml @ 100 mls/hr Q10H IV 07/14/19 16:45 08/13/19 16:44 07/15/19 12:00 Folic Acid (Folate) 1 mg DAILY ORAL 07/11/19 09:00 08/03/19 10:29 07/15/19 08:47 Lactulose (Cephulac) 20 gm THREE TIMES A DAY ORAL 07/11/19 09:00 08/04/19 12:59 07/15/19 12:18 Pantoprazole (Protonix) 40 mg EVERY 12 HOURS ORAL 07/14/19 21:00 08/13/19 20:59 07/15/19 08:47 Potassium Chloride (K-Dur) 40 meq ONCE ORAL 07/15/19 14:00 07/15/19 16:00 07/15/19 14:16 Rifaximin (Xifaxan) 550 mg EVERY 12 HOURS ORAL 07/14/19 21:00 07/21/19 20:59 07/15/19 08:48 Thiamine HCl (Vitamin B1) 100 mg DAILY ORAL 07/11/19 09:00 08/03/19 10:29 07/15/19 08:48 Dionna Tee MD Jul 15, 2019 15:29
[2019-07-15 16:00] VITALS: BP 111/74
--- NOTE | 2019-07-15 16:53 | NUR ---
NURSE NOTES: Notified HUNTER [place] regarding abnormal Ammonia level. No new order at this time. Will continue plan of care.
--- NOTE | 2019-07-15 16:57 | NUR ---
NURSE NOTES: Notified Dr. Muñoz regarding abnormal PT, INR, PTT level. No new order at this time. Will carry out the order as soon as receives it. Will continue plan of care.
--- NOTE | 2019-07-15 18:25 | NUR ---
NURSE NOTES: Dr. Muñoz ordered vitamin K infusion. Will administer as prescribed. Will continue plan of care.
[2019-07-15] MEDS ORDERED: Phytonadione 5 MG in D5W 55 ML IVPB ONE (18:30)
--- NOTE | 2019-07-15 19:09 | Hematology/Onc Progress Note ---
Assessment/Plan Assessment/Plan ASSESSMENT AND RECS # Anemia of iron deficiency in addition to suppression from etoh abuse and cirrhosis of liver --> Anemia workup has been ordered, rule out gi bleed --> aid noted --> No evidence of hemolysis is noted, peripheral smear has been reviewed. --> Hgb goal >7. Transfuse prn. --> Hgb trend: 4.2-->7.1-->7.6 --> 7.6-->7.7-->8.9-->9.1-->8.9-->8.5->8.8 --> IRON IV 200mg stat ordered x 1dose --> Medications have been reviewed --> stool ob negative --> bone marrow biopsy is not indicated given the other more likely causes # Thrombocytopenia - secondary to liver cirrhosis --> Hep panel and HIV ordered - both negative --> US abd to evaluate for cirrhosis and hsm ordered - Hepatic surface nodularity, suggestive of cirrhosis. Ascites --> Peripheral smear ordered to evaluate for blasts /schistocytes and none significant noted --> abx and other meds have been reviewed --> ok for ppx if plt >50k w/ either heparin or lovenox --> Transfuse if Plt < 20k and fever, or if Plt < 10k without fever --> plt trend 90-->92k-->82-->92k-->85k-->104 # Coagulopathy due to liver cirrhosis secondary to Etoh --> GI is following, appreciate recs --> Abdominal ultrasound reviewed --> Supportive care --> lactulose prophylactic --> vit K on prn basis 07/15 # Substance abuse --> psych eval # Hypokalemia --> Replace, continue to monitor # Hypocalcemia --> replete Ca++ prn # Cirrhosis of the liver The timing of this note does not necessarily reflect the time of the patient was seen. GREATLY APPRECIATE CONSULTATION. Subjective Constitutional: Denies: no symptoms, chills, fever, malaise, weakness, other HEENT: Denies: no symptoms, eye pain, blurred vision, tearing, double vision, ear pain, ear discharge, nose pain, nose congestion, throat pain, throat swelling, mouth pain, mouth swelling, other Cardiovascular: Denies: no symptoms, chest pain, edema, irregular heart rate, lightheadedness, palpitations, syncope, other Gastrointestinal/Abdominal: Denies: no symptoms, abdomen distended, abdominal pain, black stools, tarry stools, blood in stool, constipated, diarrhea, difficulty swallowing, nausea, poor appetite, poor fluid intake, rectal bleeding , vomiting, other Neurologic/Psychiatric: Denies: no symptoms, anxiety, depressed, emotional problems, headache, numbness, paresthesia, pre-existing deficit, seizure, tingling, tremors, weakness, other Endocrine: Denies: no symptoms, excessive sweating, flushing, intolerance to cold, intolerance to heat, increased hunger, increased thirst, increased urine, unexplained weight gain, unexplained weight loss, other Allergies: Coded Allergies: No Known Allergies (Unverified , 07/03/19) Subjective 07/05: no fevers, chills or night sweats noted, on iv iron has been started, on benzo 07/07: extremely agitated overnight, climbin out of bed, on cristina taper, h/h low 07/08: remains on abx, no f/c, no bleeding is noted, no changes 07/09: paracentesis negative for malignant cells, cxr and labs reviewed 07/10: no acute distress, still drowsy, has been attempting to get out of bed 07/11: transferred [facility], stool ob negative, h/h stable 07/12: imaging reviewed, on abx, us paracentesis, no distress 07/13: remains on librium, plt 85, hgb 8.5, no f/c, no night sweats 07/15: no bleeding, pt/ptt elevated, given vit K, no f/c, no chills noted Objective Objective Current Medications Medications (Trade) Dose Ordered Sig/Tanja Route PRN Reason Start Time Stop Time Status Last Admin Dose Admin Azithromycin (Zithromax) 500 mg DAILY ORAL 07/15/19 09:00 07/22/19 08:59 07/15/19 08:48 Cefazolin Sodium 2 gm/Sodium Chloride 55 ml @ 110 mls/hr Q8H IVP 07/13/19 17:00 07/20/19 16:59 07/15/19 17:12 Dextrose 1,000 ml @ 100 mls/hr Q10H IV 07/14/19 16:45 08/13/19 16:44 07/15/19 12:00 Folic Acid (Folate) 1 mg DAILY ORAL 07/11/19 09:00 08/03/19 10:29 07/15/19 08:47 Lactulose (Cephulac) 20 gm THREE TIMES A DAY ORAL 07/11/19 09:00 08/04/19 12:59 07/15/19 17:12 Pantoprazole (Protonix) 40 mg EVERY 12 HOURS ORAL 07/14/19 21:00 08/13/19 20:59 07/15/19 08:47 Rifaximin (Xifaxan) 550 mg EVERY 12 HOURS ORAL 07/14/19 21:00 07/21/19 20:59 07/15/19 08:48 Thiamine HCl (Vitamin B1) 100 mg DAILY ORAL 07/11/19 09:00 08/03/19 10:29 07/15/19 08:48 Last 24 Hour Vital Signs Date Time Temp Pulse Resp B/P (MAP) Pulse Ox O2 Delivery O2 Flow Rate FiO2 07/15/19 16:00 96 07/15/19 16:00 97.0 92 18 111/74 (86) 97 07/15/19 12:00 87 07/15/19 12:00 97.0 86 18 113/69 (84) 98 07/15/19 09:00 Room Air 07/15/19 08:00 70 07/15/19 08:00 97.0 79 20 107/71 (83) 98 07/15/19 04:00 98.4 88 20 115/78 (90) 96 07/15/19 04:00 83 07/15/19 00:00 98.0 83 20 112/74 (87) 97 07/15/19 00:00 83 07/14/19 21:00 Room Air 07/14/19 20:00 97.8 85 18 106/65 (79) 98 07/14/19 20:00 81 07/14/19 16:00 98.6 87 18 121/79 (93) 98 07/14/19 16:00 84 07/14/19 12:00 88 07/14/19 11:54 98.6 90 18 117/78 (91) 98 07/14/19 09:00 Room Air 07/14/19 08:00 89 07/14/19 08:00 98.4 82 18 110/68 (82) 95 07/14/19 04:00 98.2 89 18 107/67 (80) 95 07/14/19 04:00 89 07/14/19 00:00 97.9 82 18 106/65 (79) 96 07/14/19 00:00 82 07/13/19 21:00 Room Air 07/13/19 20:00 85 07/13/19 20:00 97.4 85 18 121/68 (85) 95 Intake and Output 07/14/19 07/15/19 19:00 07:00 Intake Total 1015 ml 1218 ml Balance 1015 ml 1218 ml IV Total 365 ml 1218 ml Other 650 ml # Voids 4 # Bowel Movements 2 1 Labs Test 07/13/19 06:08 07/14/19 06:29 07/15/19 06:45 07/15/19 11:10 White Blood Count 5.4 K/UL (4.8-10.8) 5.6 K/UL (4.8-10.8) 8.0 K/UL (4.8-10.8) Red Blood Count 3.05 M/UL (4.70-6.10) 3.07 M/UL (4.70-6.10) 3.17 M/UL (4.70-6.10) Hemoglobin 8.5 G/DL (14.2-18.0) 8.6 G/DL (14.2-18.0) 8.8 G/DL (14.2-18.0) Hematocrit 28.5 % (42.0-52.0) 29.1 % (42.0-52.0) 29.6 % (42.0-52.0) Mean Corpuscular Volume 93 FL (80-99) 95 FL (80-99) 94 FL (80-99) Mean Corpuscular Hemoglobin 28.0 PG (27.0-31.0) 27.9 PG (27.0-31.0) 27.9 PG (27.0-31.0) Mean Corpuscular Hemoglobin Concent 30.0 G/DL (32.0-36.0) 29.4 G/DL (32.0-36.0) 29.8 G/DL (32.0-36.0) Red Cell Distribution Width 23.8 % (11.6-14.8) 25.2 % (11.6-14.8) 23.8 % (11.6-14.8) Platelet Count 85 K/UL (150-450) 99 K/UL (150-450) 104 K/UL (150-450) Mean Platelet Volume 8.0 FL (6.5-10.1) 6.6 FL (6.5-10.1) 7.1 FL (6.5-10.1) Neutrophils (%) (Auto) % (45.0-75.0) % (45.0-75.0) 64.6 % (45.0-75.0) Lymphocytes (%) (Auto) % (20.0-45.0) % (20.0-45.0) 21.8 % (20.0-45.0) Monocytes (%) (Auto) % (1.0-10.0) % (1.0-10.0) 11.4 % (1.0-10.0) Eosinophils (%) (Auto) % (0.0-3.0) % (0.0-3.0) 0.9 % (0.0-3.0) Basophils (%) (Auto) % (0.0-2.0) % (0.0-2.0) 1.2 % (0.0-2.0) Differential Total Cells Counted 100 100 Neutrophils % (Manual) 58 % (45-75) 68 % (45-75) Lymphocytes % (Manual) 30 % (20-45) 19 % (20-45) Monocytes % (Manual) 11 % (1-10) 13 % (1-10) Eosinophils % (Manual) 1 % (0-3) 0 % (0-3) Basophils % (Manual) 0 % (0-2) 0 % (0-2) Band Neutrophils 0 % (0-8) 0 % (0-8) Platelet Estimate Decreased Decreased Platelet Morphology Normal Normal Hypochromasia 1+ 1+ Anisocytosis 3+ 2+ Prothrombin Time 16.9 SEC (9.30-11.50) 16.4 SEC (9.30-11.50) Prothromb Time International Ratio 1.6 (0.9-1.1) 1.6 (0.9-1.1) Sodium Level 146 MMOL/L (136-145) 150 MMOL/L (136-145) 146 MMOL/L (136-145) Potassium Level 3.3 MMOL/L (3.5-5.1) 3.9 MMOL/L (3.5-5.1) 3.1 MMOL/L (3.5-5.1) Chloride Level 115 MMOL/L (98-107) 118 MMOL/L (98-107) 114 MMOL/L (98-107) Carbon Dioxide Level 24 MMOL/L (21-32) 24 MMOL/L (21-32) 21 MMOL/L (21-32) Anion Gap 7 mmol/L (5-15) 8 mmol/L (5-15) 11 mmol/L (5-15) Blood Urea Nitrogen 9 mg/dL (7-18) 8 mg/dL (7-18) 9 mg/dL (7-18) Creatinine 1.1 MG/DL (0.55-1.30) 1.2 MG/DL (0.55-1.30) 1.2 MG/DL (0.55-1.30) Estimat Glomerular Filtration Rate > 60 mL/min (>60) > 60 mL/min (>60) > 60 mL/min (>60) Glucose Level 70 MG/DL (74-106) 67 MG/DL (74-106) 93 MG/DL (74-106) Calcium Level 8.7 MG/DL (8.5-10.1) 8.8 MG/DL (8.5-10.1) 8.6 MG/DL (8.5-10.1) Total Bilirubin 1.5 MG/DL (0.2-1.0) 1.0 MG/DL (0.2-1.0) Direct Bilirubin 0.8 MG/DL (0.0-0.3) Aspartate Amino Transf (AST/SGOT) 97 U/L (15-37) 79 U/L (15-37) Alanine Aminotransferase (ALT/SGPT) 30 U/L (12-78) 24 U/L (12-78) Alkaline Phosphatase 95 U/L (46-116) 99 U/L (46-116) Total Protein 7.1 G/DL (6.4-8.2) 7.4 G/DL (6.4-8.2) Albumin 1.0 G/DL (3.4-5.0) 1.1 G/DL (3.4-5.0) Globulin 6.1 g/dL 6.3 g/dL Albumin/Globulin Ratio 0.2 (1.0-2.7) 0.2 (1.0-2.7) Magnesium Level 1.6 MG/DL (1.8-2.4) 1.7 MG/DL (1.8-2.4) Activated Partial Thromboplast Time 39 SEC (23-33) Ammonia 49 umol/L (11-32) Height (Feet): 5 Height (Inches): 8.00 Weight (Pounds): 157 Objective Physical Exam: Vitals: reviewed General Appearance: NAD HEENT: normocephalic, atraumatic Neck: non-tender, normal alignment Respiratory/Chest: normal breath sounds bilaterally Cardiovascular/Chest: normal peripheral pulses, normal rate Abdomen: normal bowel sounds, soft, nontender +++ ascites Avery Guo MD Jul 15, 2019 19:09
[2019-07-15 20:00] VITALS: BP 104/69
--- NOTE | 2019-07-15 20:06 | NUR ---
NURSE NOTES: RECEIVED PATIENT RESTING IN BED. FALL, ASPIRATION AND SEIZURE PRECAUTIONS IN PLACE: CALL LIGHT WITHIN REACH, BED IN LOW POSITION AND BED ALARM ON ON ZONE 2; HOB ELEVATED AND SIDE RAILS PADDED. WILL CONTINUE WITH PLAN OF CARE.
--- NOTE | 2019-07-15 20:18 | NUR ---
HAND-OFF: Report given to JOSEFINA Wise. The patient is resting on the bed without acute distress or shortness of breath. The patient's bed in the lowest position, call light in reach, and fall, aspiration, and seizure precaution reinforced. IV site on left FA 22G intact and patent. Endorsed plan of care.
--- NOTE | 2019-07-15 20:46 | Hematology/Onc Progress Note ---
Assessment/Plan Assessment/Plan LATE ENTRY 07/14/2019 ASSESSMENT AND RECS # Anemia of iron deficiency in addition to suppression from etoh abuse and cirrhosis of liver --> Anemia workup has been ordered, rule out gi bleed --> aid noted --> No evidence of hemolysis is noted, peripheral smear has been reviewed. --> Hgb goal >7. Transfuse prn. --> Hgb trend: 4.2-->7.1-->7.6 --> 7.6-->7.7-->8.9-->9.1-->8.9-->8.5->8.8 --> IRON IV 200mg stat ordered x 1dose --> Medications have been reviewed --> stool ob negative --> bone marrow biopsy is not indicated given the other more likely causes # Thrombocytopenia - secondary to liver cirrhosis --> Hep panel and HIV ordered - both negative --> US abd to evaluate for cirrhosis and hsm ordered - Hepatic surface nodularity, suggestive of cirrhosis. Ascites --> Peripheral smear ordered to evaluate for blasts /schistocytes and none significant noted --> abx and other meds have been reviewed --> ok for ppx if plt >50k w/ either heparin or lovenox --> Transfuse if Plt < 20k and fever, or if Plt < 10k without fever --> plt trend 90-->92k-->82-->92k-->85k-->104 # Coagulopathy due to liver cirrhosis secondary to Etoh --> GI is following, appreciate recs --> Abdominal ultrasound reviewed --> Supportive care --> lactulose prophylactic --> vit K on prn basis 07/15 # Substance abuse --> psych eval # Hypokalemia --> Replace, continue to monitor # Hypocalcemia --> replete Ca++ prn # Cirrhosis of the liver The timing of this note does not necessarily reflect the time of the patient was seen. GREATLY APPRECIATE CONSULTATION. Subjective Allergies: Coded Allergies: No Known Allergies (Unverified , 07/03/19) Subjective Subjective 07/05: no fevers, chills or night sweats noted, on iv iron has been started, on benzo 07/07: extremely agitated overnight, climbin out of bed, on cristina taper, h/h low 07/08: remains on abx, no f/c, no bleeding is noted, no changes 07/09: paracentesis negative for malignant cells, cxr and labs reviewed 07/10: no acute distress, still drowsy, has been attempting to get out of bed 07/11: transferred [facility], stool ob negative, h/h stable 07/12: imaging reviewed, on abx, us paracentesis, no distress 07/13: remains on librium, plt 85, hgb 8.5, no f/c, no night sweats 07/14: h/h stabl, complaints VS reviewed. Objective Objective Current Medications Medications (Trade) Dose Ordered Sig/Tanja Route PRN Reason Start Time Stop Time Status Last Admin Dose Admin Azithromycin (Zithromax) 500 mg DAILY ORAL 07/15/19 09:00 07/22/19 08:59 07/15/19 08:48 Cefazolin Sodium 2 gm/Sodium Chloride 55 ml @ 110 mls/hr Q8H IVP 07/13/19 17:00 07/20/19 16:59 07/15/19 17:12 Dextrose 1,000 ml @ 100 mls/hr Q10H IV 07/14/19 16:45 08/13/19 16:44 07/15/19 12:00 Folic Acid (Folate) 1 mg DAILY ORAL 07/11/19 09:00 08/03/19 10:29 07/15/19 08:47 Lactulose (Cephulac) 20 gm THREE TIMES A DAY ORAL 07/11/19 09:00 08/04/19 12:59 07/15/19 17:12 Pantoprazole (Protonix) 40 mg EVERY 12 HOURS ORAL 07/14/19 21:00 08/13/19 20:59 07/15/19 08:47 Rifaximin (Xifaxan) 550 mg EVERY 12 HOURS ORAL 07/14/19 21:00 07/21/19 20:59 07/15/19 08:48 Thiamine HCl (Vitamin B1) 100 mg DAILY ORAL 07/11/19 09:00 08/03/19 10:29 07/15/19 08:48 Last 24 Hour Vital Signs Date Time Temp Pulse Resp B/P (MAP) Pulse Ox O2 Delivery O2 Flow Rate FiO2 07/15/19 16:00 96 07/15/19 16:00 97.0 92 18 111/74 (86) 97 07/15/19 12:00 87 07/15/19 12:00 97.0 86 18 113/69 (84) 98 07/15/19 09:00 Room Air 07/15/19 08:00 70 07/15/19 08:00 97.0 79 20 107/71 (83) 98 07/15/19 04:00 98.4 88 20 115/78 (90) 96 07/15/19 04:00 83 07/15/19 00:00 98.0 83 20 112/74 (87) 97 07/15/19 00:00 83 07/14/19 21:00 Room Air 07/14/19 20:00 97.8 85 18 106/65 (79) 98 07/14/19 20:00 81 07/14/19 16:00 98.6 87 18 121/79 (93) 98 07/14/19 16:00 84 07/14/19 12:00 88 07/14/19 11:54 98.6 90 18 117/78 (91) 98 07/14/19 09:00 Room Air 07/14/19 08:00 89 07/14/19 08:00 98.4 82 18 110/68 (82) 95 07/14/19 04:00 98.2 89 18 107/67 (80) 95 07/14/19 04:00 89 07/14/19 00:00 97.9 82 18 106/65 (79) 96 07/14/19 00:00 82 07/13/19 21:00 Room Air Intake and Output 07/14/19 07/15/19 19:00 07:00 Intake Total 1015 ml 1218 ml Balance 1015 ml 1218 ml IV Total 365 ml 1218 ml Other 650 ml # Voids 4 # Bowel Movements 2 1 Labs Test 07/13/19 06:08 07/14/19 06:29 07/15/19 06:45 07/15/19 11:10 White Blood Count 5.4 K/UL (4.8-10.8) 5.6 K/UL (4.8-10.8) 8.0 K/UL (4.8-10.8) Red Blood Count 3.05 M/UL (4.70-6.10) 3.07 M/UL (4.70-6.10) 3.17 M/UL (4.70-6.10) Hemoglobin 8.5 G/DL (14.2-18.0) 8.6 G/DL (14.2-18.0) 8.8 G/DL (14.2-18.0) Hematocrit 28.5 % (42.0-52.0) 29.1 % (42.0-52.0) 29.6 % (42.0-52.0) Mean Corpuscular Volume 93 FL (80-99) 95 FL (80-99) 94 FL (80-99) Mean Corpuscular Hemoglobin 28.0 PG (27.0-31.0) 27.9 PG (27.0-31.0) 27.9 PG (27.0-31.0) Mean Corpuscular Hemoglobin Concent 30.0 G/DL (32.0-36.0) 29.4 G/DL (32.0-36.0) 29.8 G/DL (32.0-36.0) Red Cell Distribution Width 23.8 % (11.6-14.8) 25.2 % (11.6-14.8) 23.8 % (11.6-14.8) Platelet Count 85 K/UL (150-450) 99 K/UL (150-450) 104 K/UL (150-450) Mean Platelet Volume 8.0 FL (6.5-10.1) 6.6 FL (6.5-10.1) 7.1 FL (6.5-10.1) Neutrophils (%) (Auto) % (45.0-75.0) % (45.0-75.0) 64.6 % (45.0-75.0) Lymphocytes (%) (Auto) % (20.0-45.0) % (20.0-45.0) 21.8 % (20.0-45.0) Monocytes (%) (Auto) % (1.0-10.0) % (1.0-10.0) 11.4 % (1.0-10.0) Eosinophils (%) (Auto) % (0.0-3.0) % (0.0-3.0) 0.9 % (0.0-3.0) Basophils (%) (Auto) % (0.0-2.0) % (0.0-2.0) 1.2 % (0.0-2.0) Differential Total Cells Counted 100 100 Neutrophils % (Manual) 58 % (45-75) 68 % (45-75) Lymphocytes % (Manual) 30 % (20-45) 19 % (20-45) Monocytes % (Manual) 11 % (1-10) 13 % (1-10) Eosinophils % (Manual) 1 % (0-3) 0 % (0-3) Basophils % (Manual) 0 % (0-2) 0 % (0-2) Band Neutrophils 0 % (0-8) 0 % (0-8) Platelet Estimate Decreased Decreased Platelet Morphology Normal Normal Hypochromasia 1+ 1+ Anisocytosis 3+ 2+ Prothrombin Time 16.9 SEC (9.30-11.50) 16.4 SEC (9.30-11.50) Prothromb Time International Ratio 1.6 (0.9-1.1) 1.6 (0.9-1.1) Sodium Level 146 MMOL/L (136-145) 150 MMOL/L (136-145) 146 MMOL/L (136-145) Potassium Level 3.3 MMOL/L (3.5-5.1) 3.9 MMOL/L (3.5-5.1) 3.1 MMOL/L (3.5-5.1) Chloride Level 115 MMOL/L (98-107) 118 MMOL/L (98-107) 114 MMOL/L (98-107) Carbon Dioxide Level 24 MMOL/L (21-32) 24 MMOL/L (21-32) 21 MMOL/L (21-32) Anion Gap 7 mmol/L (5-15) 8 mmol/L (5-15) 11 mmol/L (5-15) Blood Urea Nitrogen 9 mg/dL (7-18) 8 mg/dL (7-18) 9 mg/dL (7-18) Creatinine 1.1 MG/DL (0.55-1.30) 1.2 MG/DL (0.55-1.30) 1.2 MG/DL (0.55-1.30) Estimat Glomerular Filtration Rate > 60 mL/min (>60) > 60 mL/min (>60) > 60 mL/min (>60) Glucose Level 70 MG/DL (74-106) 67 MG/DL (74-106) 93 MG/DL (74-106) Calcium Level 8.7 MG/DL (8.5-10.1) 8.8 MG/DL (8.5-10.1) 8.6 MG/DL (8.5-10.1) Total Bilirubin 1.5 MG/DL (0.2-1.0) 1.0 MG/DL (0.2-1.0) Direct Bilirubin 0.8 MG/DL (0.0-0.3) Aspartate Amino Transf (AST/SGOT) 97 U/L (15-37) 79 U/L (15-37) Alanine Aminotransferase (ALT/SGPT) 30 U/L (12-78) 24 U/L (12-78) Alkaline Phosphatase 95 U/L (46-116) 99 U/L (46-116) Total Protein 7.1 G/DL (6.4-8.2) 7.4 G/DL (6.4-8.2) Albumin 1.0 G/DL (3.4-5.0) 1.1 G/DL (3.4-5.0) Globulin 6.1 g/dL 6.3 g/dL Albumin/Globulin Ratio 0.2 (1.0-2.7) 0.2 (1.0-2.7) Magnesium Level 1.6 MG/DL (1.8-2.4) 1.7 MG/DL (1.8-2.4) Activated Partial Thromboplast Time 39 SEC (23-33) Ammonia 49 umol/L (11-32) Height (Feet): 5 Height (Inches): 8.00 Weight (Pounds): 157 Objective Objective Constitutional: Denies: no symptoms, chills, fever, malaise, weakness, other HEENT: Denies: no symptoms, eye pain, blurred vision, tearing, double vision, ear pain, ear discharge, nose pain, nose congestion, throat pain, throat swelling, mouth pain, mouth swelling, other Cardiovascular: Denies: no symptoms, chest pain, edema, irregular heart rate, lightheadedness, palpitations, syncope, other Gastrointestinal/Abdominal: Denies: no symptoms, abdomen distended, abdominal pain, black stools, tarry stools, blood in stool, constipated, diarrhea, difficulty swallowing, nausea, poor appetite, poor fluid intake, rectal bleeding , vomiting, other Neurologic/Psychiatric: Denies: no symptoms, anxiety, depressed, emotional problems, headache, numbness, paresthesia, pre-existing deficit, seizure, tingling, tremors, weakness, other Endocrine: Denies: no symptoms, excessive sweating, flushing, intolerance to cold, intolerance to heat, increased hunger, increased thirst, increased urine, unexplained weight gain, unexplained weight loss, other Rosana Nagel NP Jul 15, 2019 20:46
[2019-07-16] VITALS: BP 111/72
[2019-07-16] MEDS: ceFAZolin sod 2 GM in NS 55 ML IVP SCH ×3 (01:00→17:11)
[2019-07-16 04:00] VITALS: BP 110/70
[2019-07-16 07:12] LABS: INR 1.6 (0.9-1.1)
[2019-07-16 07:15] LABS: EOSINOPHILS % (AUTO) 1.9 % (0.0-3.0); HEMATOCRIT 27.7 % (42.0-52.0); HEMOGLOBIN 8.1 G/DL (14.2-18.0); LYMPHOCYTES % (AUTO) 20.3 % (20.0-45.0); MEAN CORPUSCULAR VOLUME 94 FL (80-99); MONOCYTES % (AUTO) 11.2 % (1.0-10.0); NEUTROPHILS % (AUTO) 64.7 % (45.0-75.0); PLATELET COUNT 117 K/UL (150-450); RED BLOOD COUNT 2.95 M/UL (4.70-6.10); RED CELL DISTRIBUTION WIDTH 23.9 % (11.6-14.8); WHITE BLOOD COUNT 8.3 K/UL (4.8-10.8)
--- NOTE | 2019-07-16 07:18 | NUR ---
HAND-OFF: Report given to Sandra ESTEBAN RN. PATIENT HAVING BREAKFAST, NO SIGNS OF DISTRESS NOTED.
--- NOTE | 2019-07-16 07:43 | NUR ---
NURSE NOTES: Patient is alert and awake. Patient is eating breakfast. No s/s of discomfort. Side rails are up x3, bed is locked, in lowest position, and call light is within reach. IVF running at 100ml/hr. IV intact. Will continue to monitor.
[2019-07-16 07:58] LABS: ALANINE AMINOTRANSFERASE 16 U/L (12-78); ALBUMIN/GLOBULIN RATIO 0.2 (1.0-2.7); ALKALINE PHOSPHATASE 99 U/L (46-116); ANION GAP 11 mmol/L (5-15); ASPARTATE AMINO TRANSFERASE 70 U/L (15-37); BILIRUBIN,TOTAL 1.2 MG/DL (0.2-1.0); BLOOD UREA NITROGEN 7 mg/dL (7-18); CALCIUM 8.5 MG/DL (8.5-10.1); CARBON DIOXIDE 21 MMOL/L (21-32); CHLORIDE 113 MMOL/L (98-107); POTASSIUM 3.3 MMOL/L (3.5-5.1); SODIUM 145 MMOL/L (136-145)
[2019-07-16 07:59] LABS: BILIRUBIN,DIRECT 0.6 MG/DL (0.0-0.3)
[2019-07-16 08:00] VITALS: BP 110/72
[2019-07-16] MEDS: Azithromycin 250mg tab ORAL SCH (08:12)
[2019-07-16] MEDS: Lactulose 20gm/30ml UDC ORAL SCH ×3 (08:12→17:10)
[2019-07-16] MEDS: Thiamine 100mg tab ORAL SCH (08:13)
[2019-07-16] MEDS ORDERED: Phytonadione 5 MG in D5W 55 ML IVPB ONE (08:45)
--- NOTE | 2019-07-16 09:19 | General Progress Note ---
Assessment/Plan Status: stable Assessment/Plan: 48-year-old male with past medical history of ETOH abuse presented found down. Overall improving #Encephalopathy likely multifactorial including hepatic encephalopathy ( elevated ammonia), as well as sepsis with bacteremia due to MSSA. #Sepsis secondary to bacteremia due to MSSA -s/p vancomycin and Zosyn (07/06), now cefazolin per ID recs -Infectious disease consult, appreciate recs #Hypernatremia D5W @ 75 ml/rh, encourage PO intake # Lice - primerin treatment - Ordered to clip hair as persistent lice noted despite 2 shampoo treatment #Liver cirrhosis secondary to EtOH # ETOH withdrawal. Libirum being used. - DF 31 -MELD 15 on admission -Abdominal ultrasound reviewed -Status post paracentesis 07/05/2019 with removal of 8 L. -Albumin for BP support as needed -Supportive care - lactulose DE - Repeat paracentesis 07/16. Recheck INR, VIT K and ffp as needed #Anemia, likely might multifactorial including acute blood loss anemia, anemia of chronic disease -Hematology consult, appreciate recs -Iron panel: Reviewed -Low folate: Replace -B12 within normal limits above 800 -GI consult, appreciate recs. HOLD OFF NGT for now due to risk with possible esophageal varices. PENDING EGD per GI decision. Patient is gradually waking up and eating is still a problem. MONITOR closely as he is now 9 days into the Hospital stay. #Thrombocytopenia -due to cirrhosis- stable #Substance abuse -Nodular liver in ultrasound suggestive of cirrhosis -Check hepatitis and HIV: hiv neg, hepatitis panel negative -Social work Consult - Psyche consult, appreciate recs #Hypokalemia Replace as needed, will replace today # Hypomagnesemia Replace today # Hypocalcemia - replace as needed #Dysphagia -Etiology due to agitation, likely due underlying hepatic encephalopathy vs side effect of Ativan #full code # Disposition SW and CM follow up needed. Homeless. The time of my note may not reflect the time of my patient encounter. I spent 40 minutes on this encounter, greater than 50 percent in counseling and care coordination Subjective Date patient seen: Jul 16, 2019 ROS Limited/Unobtainable: Yes Allergies: Coded Allergies: No Known Allergies (Unverified , 07/03/19) Subjective seen and examined. looks comfortable. Tolerating diet Sodium improved on D5W Hypokalemic Received vit k, inr 1.6 For paracentesis today Objective Last 24 Hour Vital Signs Date Time Temp Pulse Resp B/P (MAP) Pulse Ox O2 Delivery O2 Flow Rate FiO2 07/16/19 04:00 86 07/16/19 04:00 97.5 90 18 110/70 (83) 96 07/16/19 00:00 97.5 82 18 111/72 (85) 95 07/16/19 00:00 85 07/15/19 21:00 Room Air 07/15/19 20:00 97.5 93 18 104/69 (81) 96 07/15/19 20:00 91 07/15/19 16:00 96 07/15/19 16:00 97.0 92 18 111/74 (86) 97 07/15/19 12:00 87 07/15/19 12:00 97.0 86 18 113/69 (84) 98 Intake and Output 07/15/19 07/16/19 19:00 07:00 Intake Total 400 ml 1280 ml Balance 400 ml 1280 ml Intake Oral 300 ml 75 ml IV Total 100 ml 1205 ml # Voids 5 3 # Bowel Movements 1 1 Laboratory Tests 07/15/19 11:10: Prothrombin Time 16.4H, Prothromb Time International Ratio 1.6H, Activated Partial Thromboplast Time 39H, Ammonia 49H 07/16/19 05:30: Prothrombin Time 16.2H, Prothromb Time International Ratio 1.6H, Activated Partial Thromboplast Time 41H, Ammonia 52H, White Blood Count 8.3, Red Blood Count 2.95L, Hemoglobin 8.1L, Hematocrit 27.7L, Mean Corpuscular Volume 94, Mean Corpuscular Hemoglobin 27.6, Mean Corpuscular Hemoglobin Concent 29.4L, Red Cell Distribution Width 23.9H, Platelet Count 117L, Mean Platelet Volume 8.8 , Neutrophils (%) (Auto) 64.7, Lymphocytes (%) (Auto) 20.3, Monocytes (%) (Auto ) 11.2H, Eosinophils (%) (Auto) 1.9, Basophils (%) (Auto) 2.0, Sodium Level 145 , Potassium Level 3.3L, Chloride Level 113H, Carbon Dioxide Level 21, Anion Gap 11, Blood Urea Nitrogen 7, Creatinine 1.0, Estimat Glomerular Filtration Rate > 60, Glucose Level 85, Calcium Level 8.5, Phosphorus Level 3.0, Magnesium Level 1.7L, Total Bilirubin 1.2H, Direct Bilirubin 0.6H, Aspartate Amino Transf (AST/ SGOT) 70H, Alanine Aminotransferase (ALT/SGPT) 16, Alkaline Phosphatase 99, Total Protein 7.1, Albumin 1.0L, Globulin 6.1, Albumin/Globulin Ratio 0.2L Height (Feet): 5 Height (Inches): 8.00 Weight (Pounds): 157 Objective General Appearance: moderate distress EENT: PERRL/EOMI, normal ENT inspection Cardiovascular: normal rate Respiratory/Chest: lungs clear Abdomen: distended, hepatomegaly Edema: trace edema 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 Jul 16, 2019 09:19
--- NOTE | 2019-07-16 09:37 | General Progress Note ---
Progress Note Progress Note Patient unable to consent for himself due to mental status, hepatic encephalopathy and needs repeat paracentesis. This document will serve as consent for this procedure. Please refer to the chart for 2 physician consent document for this urgent procedure. Sumeet Muñoz M.D. Jul 16, 2019 09:37
[2019-07-16] MEDS ORDERED: Phytonadione 5 MG in D5W 55 ML IVPB SCH (10:00)
[2019-07-16 12:00] VITALS: BP 112/73
--- NOTE | 2019-07-16 12:57 | NUR ---
NURSE NOTES: Patient off unit for paracentesis.
--- NOTE | 2019-07-16 13:15 | Hematology/Onc Progress Note ---
Assessment/Plan Assessment/Plan ASSESSMENT AND RECS # Anemia of iron deficiency in addition to suppression from etoh abuse and cirrhosis of liver --> Anemia workup has been ordered, rule out gi bleed --> aid noted --> No evidence of hemolysis is noted, peripheral smear has been reviewed. --> Hgb goal >7. Transfuse prn. --> Hgb trend: 4.2-->7.1-->7.6 --> 7.6-->7.7-->8.9-->9.1-->8.9-->8.5->8.8 --> IRON IV 200mg ordered x 1dose --> Medications have been reviewed --> stool ob negative --> bone marrow biopsy is not indicated given the other more likely causes # Thrombocytopenia - secondary to liver cirrhosis --> Hep panel and HIV ordered - both negative --> US abd to evaluate for cirrhosis and hsm ordered - Hepatic surface nodularity, suggestive of cirrhosis. Ascites --> Peripheral smear ordered to evaluate for blasts /schistocytes and none significant noted --> abx and other meds have been reviewed --> ok for ppx if plt >50k w/ either heparin or lovenox --> Transfuse if Plt < 20k and fever, or if Plt < 10k without fever --> plt trend 90-->92k-->82-->92k-->85k-->104 # Coagulopathy due to liver cirrhosis secondary to Etoh --> GI is following, appreciate recs --> Abdominal ultrasound reviewed --> Supportive care --> lactulose prophylactic --> vit K on prn basis 07/15 # Substance abuse --> psych eval # Hypokalemia --> Replace, continue to monitor # Hypocalcemia --> replete Ca++ prn # Cirrhosis of the liver The timing of this note does not necessarily reflect the time of the patient was seen. GREATLY APPRECIATE CONSULTATION. Subjective Constitutional: Denies: no symptoms, chills, fever, malaise, weakness, other HEENT: Denies: no symptoms, eye pain, blurred vision, tearing, double vision, ear pain, ear discharge, nose pain, nose congestion, throat pain, throat swelling, mouth pain, mouth swelling, other Cardiovascular: Denies: no symptoms, chest pain, edema, irregular heart rate, lightheadedness, palpitations, syncope, other Respiratory: Denies: no symptoms, cough, shortness of breath, SOB with excertion, SOB at rest, sputum, wheezing, other Gastrointestinal/Abdominal: Denies: no symptoms, abdomen distended, abdominal pain, black stools, tarry stools, blood in stool, constipated, diarrhea, difficulty swallowing, nausea, poor appetite, poor fluid intake, rectal bleeding , vomiting, other Genitourinary: Denies: no symptoms, burning, discharge, frequency, flank pain, hematuria, incontinence, pain, urgency, other Endocrine: Denies: no symptoms, excessive sweating, flushing, intolerance to cold, intolerance to heat, increased hunger, increased thirst, increased urine, unexplained weight gain, unexplained weight loss, other Hematologic/Lymphatic: Denies: no symptoms, anemia, easy bleeding, easy bruising, adenopathy, other Allergies: Coded Allergies: No Known Allergies (Unverified , 07/03/19) Subjective 07/05: no fevers, chills or night sweats noted, on iv iron has been started, on benzo 07/07: extremely agitated overnight, climbin out of bed, on cristina taper, h/h low 07/08: remains on abx, no f/c, no bleeding is noted, no changes 07/09: paracentesis negative for malignant cells, cxr and labs reviewed 07/10: no acute distress, still drowsy, has been attempting to get out of bed 07/11: transferred [facility] to [facility], stool ob negative, h/h stable 07/12: imaging reviewed, on abx, us paracentesis, no distress 07/13: remains on librium, plt 85, hgb 8.5, no f/c, no night sweats 07/15: no bleeding, pt/ptt elevated, given vit K, no f/c, no chills noted 07/16: for repeat paracentesis, no f/c, no bleeding Objective Objective Current Medications Medications (Trade) Dose Ordered Sig/Tanja Route PRN Reason Start Time Stop Time Status Last Admin Dose Admin Azithromycin (Zithromax) 500 mg DAILY ORAL 07/15/19 09:00 07/22/19 08:59 07/16/19 08:12 Cefazolin Sodium 2 gm/Sodium Chloride 55 ml @ 110 mls/hr Q8H IVP 07/13/19 17:00 07/20/19 16:59 07/16/19 09:24 Dextrose 1,000 ml @ 100 mls/hr Q10H IV 07/14/19 16:45 08/13/19 16:44 07/16/19 08:13 Folic Acid (Folate) 1 mg DAILY ORAL 07/11/19 09:00 08/03/19 10:29 07/16/19 08:13 Lactulose (Cephulac) 20 gm THREE TIMES A DAY ORAL 07/11/19 09:00 08/04/19 12:59 07/16/19 08:12 Pantoprazole (Protonix) 40 mg EVERY 12 HOURS ORAL 07/14/19 21:00 08/13/19 20:59 07/16/19 08:13 Potassium Chloride (K-Dur) 40 meq DAILY ORAL 07/16/19 09:00 08/15/19 08:59 07/16/19 09:25 Rifaximin (Xifaxan) 550 mg EVERY 12 HOURS ORAL 07/14/19 21:00 07/21/19 20:59 07/16/19 08:14 Thiamine HCl (Vitamin B1) 100 mg DAILY ORAL 07/11/19 09:00 08/03/19 10:29 07/16/19 08:13 Last 24 Hour Vital Signs Date Time Temp Pulse Resp B/P (MAP) Pulse Ox O2 Delivery O2 Flow Rate FiO2 07/16/19 12:00 97.2 86 20 112/73 (86) 97 07/16/19 08:00 Room Air 07/16/19 08:00 97.5 87 18 110/72 (85) 96 07/16/19 08:00 86 07/16/19 04:00 86 07/16/19 04:00 97.5 90 18 110/70 (83) 96 07/16/19 00:00 97.5 82 18 111/72 (85) 95 07/16/19 00:00 85 07/15/19 21:00 Room Air 07/15/19 20:00 97.5 93 18 104/69 (81) 96 07/15/19 20:00 91 07/15/19 16:00 96 07/15/19 16:00 97.0 92 18 111/74 (86) 97 07/15/19 12:00 87 07/15/19 12:00 97.0 86 18 113/69 (84) 98 07/15/19 09:00 Room Air 07/15/19 08:00 70 07/15/19 08:00 97.0 79 20 107/71 (83) 98 07/15/19 04:00 98.4 88 20 115/78 (90) 96 07/15/19 04:00 83 07/15/19 00:00 98.0 83 20 112/74 (87) 97 07/15/19 00:00 83 07/14/19 21:00 Room Air 07/14/19 20:00 97.8 85 18 106/65 (79) 98 07/14/19 20:00 81 07/14/19 16:00 98.6 87 18 121/79 (93) 98 07/14/19 16:00 84 Intake and Output 07/15/19 07/16/19 19:00 07:00 Intake Total 400 ml 1280 ml Balance 400 ml 1280 ml Intake Oral 300 ml 75 ml IV Total 100 ml 1205 ml # Voids 5 3 # Bowel Movements 1 1 Labs Test 07/14/19 06:29 07/15/19 06:45 07/15/19 11:10 07/16/19 05:30 White Blood Count 5.6 K/UL (4.8-10.8) 8.0 K/UL (4.8-10.8) 8.3 K/UL (4.8-10.8) Red Blood Count 3.07 M/UL (4.70-6.10) 3.17 M/UL (4.70-6.10) 2.95 M/UL (4.70-6.10) Hemoglobin 8.6 G/DL (14.2-18.0) 8.8 G/DL (14.2-18.0) 8.1 G/DL (14.2-18.0) Hematocrit 29.1 % (42.0-52.0) 29.6 % (42.0-52.0) 27.7 % (42.0-52.0) Mean Corpuscular Volume 95 FL (80-99) 94 FL (80-99) 94 FL (80-99) Mean Corpuscular Hemoglobin 27.9 PG (27.0-31.0) 27.9 PG (27.0-31.0) 27.6 PG (27.0-31.0) Mean Corpuscular Hemoglobin Concent 29.4 G/DL (32.0-36.0) 29.8 G/DL (32.0-36.0) 29.4 G/DL (32.0-36.0) Red Cell Distribution Width 25.2 % (11.6-14.8) 23.8 % (11.6-14.8) 23.9 % (11.6-14.8) Platelet Count 99 K/UL (150-450) 104 K/UL (150-450) 117 K/UL (150-450) Mean Platelet Volume 6.6 FL (6.5-10.1) 7.1 FL (6.5-10.1) 8.8 FL (6.5-10.1) Neutrophils (%) (Auto) % (45.0-75.0) 64.6 % (45.0-75.0) 64.7 % (45.0-75.0) Lymphocytes (%) (Auto) % (20.0-45.0) 21.8 % (20.0-45.0) 20.3 % (20.0-45.0) Monocytes (%) (Auto) % (1.0-10.0) 11.4 % (1.0-10.0) 11.2 % (1.0-10.0) Eosinophils (%) (Auto) % (0.0-3.0) 0.9 % (0.0-3.0) 1.9 % (0.0-3.0) Basophils (%) (Auto) % (0.0-2.0) 1.2 % (0.0-2.0) 2.0 % (0.0-2.0) Differential Total Cells Counted 100 Neutrophils % (Manual) 68 % (45-75) Lymphocytes % (Manual) 19 % (20-45) Monocytes % (Manual) 13 % (1-10) Eosinophils % (Manual) 0 % (0-3) Basophils % (Manual) 0 % (0-2) Band Neutrophils 0 % (0-8) Platelet Estimate Decreased Platelet Morphology Normal Hypochromasia 1+ Anisocytosis 2+ Sodium Level 150 MMOL/L (136-145) 146 MMOL/L (136-145) 145 MMOL/L (136-145) Potassium Level 3.9 MMOL/L (3.5-5.1) 3.1 MMOL/L (3.5-5.1) 3.3 MMOL/L (3.5-5.1) Chloride Level 118 MMOL/L (98-107) 114 MMOL/L (98-107) 113 MMOL/L (98-107) Carbon Dioxide Level 24 MMOL/L (21-32) 21 MMOL/L (21-32) 21 MMOL/L (21-32) Anion Gap 8 mmol/L (5-15) 11 mmol/L (5-15) 11 mmol/L (5-15) Blood Urea Nitrogen 8 mg/dL (7-18) 9 mg/dL (7-18) 7 mg/dL (7-18) Creatinine 1.2 MG/DL (0.55-1.30) 1.2 MG/DL (0.55-1.30) 1.0 MG/DL (0.55-1.30) Estimat Glomerular Filtration Rate > 60 mL/min (>60) > 60 mL/min (>60) > 60 mL/min (>60) Glucose Level 67 MG/DL (74-106) 93 MG/DL (74-106) 85 MG/DL (74-106) Calcium Level 8.8 MG/DL (8.5-10.1) 8.6 MG/DL (8.5-10.1) 8.5 MG/DL (8.5-10.1) Magnesium Level 1.6 MG/DL (1.8-2.4) 1.7 MG/DL (1.8-2.4) 1.7 MG/DL (1.8-2.4) Total Bilirubin 1.0 MG/DL (0.2-1.0) 1.2 MG/DL (0.2-1.0) Aspartate Amino Transf (AST/SGOT) 79 U/L (15-37) 70 U/L (15-37) Alanine Aminotransferase (ALT/SGPT) 24 U/L (12-78) 16 U/L (12-78) Alkaline Phosphatase 99 U/L (46-116) 99 U/L (46-116) Total Protein 7.4 G/DL (6.4-8.2) 7.1 G/DL (6.4-8.2) Albumin 1.1 G/DL (3.4-5.0) 1.0 G/DL (3.4-5.0) Globulin 6.3 g/dL 6.1 g/dL Albumin/Globulin Ratio 0.2 (1.0-2.7) 0.2 (1.0-2.7) Prothrombin Time 16.4 SEC (9.30-11.50) 16.2 SEC (9.30-11.50) Prothromb Time International Ratio 1.6 (0.9-1.1) 1.6 (0.9-1.1) Activated Partial Thromboplast Time 39 SEC (23-33) 41 SEC (23-33) Ammonia 49 umol/L (11-32) 52 umol/L (11-32) Phosphorus Level 3.0 MG/DL (2.5-4.9) Direct Bilirubin 0.6 MG/DL (0.0-0.3) Height (Feet): 5 Height (Inches): 8.00 Weight (Pounds): 157 Objective Physical Exam: Vitals: reviewed General Appearance: NAD HEENT: normocephalic, atraumatic Neck: non-tender, normal alignment Respiratory/Chest: normal breath sounds bilaterally Cardiovascular/Chest: normal peripheral pulses, normal rate Abdomen: normal bowel sounds, soft, nontender +++ ascites Avery Guo MD Jul 16, 2019 13:15
--- NOTE | 2019-07-16 14:48 | Brief Operative Note ---
Immediate Post Operative Note Operative Note Pre-op Diagnosis: ascites Procedure: paracentesis Post-op Diagnosis: same as pre-op Surgeon: Mayur Goodwin Anesthesia: local Specimen: none Complications: none Fluids: none Implant(s) used?: No Yassine Goodwin MD Jul 16, 2019 14:48
--- NOTE | 2019-07-16 14:48 | Pre-Procedure Note/Attestation ---
Pre-Procedure Note/Attestation Complete Prior to Procedure Planned Procedure: not applicable Procedure Narrative: paracentesis Indications for Procedure Pre-Operative Diagnosis: ascites Attestation I attest that I discussed the nature of the procedure; its benefits; risks and complications; and alternatives (and the risks and benefits of such alternatives ), prior to the procedure, with the patient (or the patient's legal dental detail representative). I attest that, if there was a reasonable possibility of needing a blood transfusion, the patient (or the patient's legal dental detail representative) was given the [facility] standardized written summary, pursuant to the Denzel Huma Blood Safety Act ([place] Health and Safety Code # 1645, as amended). I attest that I re-evaluated the patient just prior to the surgery and that there has been no change in the patient's H&P, except as documented below: Emergency physician consent provided in the EMR Yassine Nelson MD Jul 16, 2019 14:48
--- NOTE | 2019-07-16 15:01 | NUR ---
CASE MANAGEMENT: REVIEW 07/13/2019 SI:ETHANOL INTOXICATION. ANEMIA. ABD DISTENTION. T 97.3 HR 88 RR 18 B/P 100/69 SATS 96% ON RA NA 146 K 3.3 CL 115 GLU 70 TBILI 1.5 DBILI 0.8 AST 97 IS: IVF @ 50 mL/HR PROTONIX IV Q12H FOLATE PO QD THIAMINE PO QD VANCO IV Q8H AZITHROMYCIN PO QD LACTULOSE BID IRRIGATION TELE 07/14/2019 SI:ETHANOL INTOXICATION. ANEMIA. ABD DISTENTION. T 98.4 HR 89 RR 18 B/P 110/68 SATS 95% ON RA HGB 8.6 HCT 29.1 NA 150 CL 118 GLU 67 IS: IVF @ 50 mL/HR PROTONIX IV Q12H FOLATE PO QD THIAMINE PO QD VANCO IV Q8H AZITHROMYCIN PO QD LACTULOSE BID IRRIGATION TELE 07/15/2019 SI:ETHANOL INTOXICATION. ANEMIA. ABD DISTENTION. T 97 HR 92 RR 18 B/P 111/74 SATS 97% ON RA NA 146 K 3.1 CL 114 AST 79 AMMONIA 49 IS: IVF @ 50 mL/HR PROTONIX IV Q12H FOLATE PO QD THIAMINE PO QD VANCO IV Q8H AZITHROMYCIN PO QD LACTULOSE BID IRRIGATION TELE 07/16/2019 SI:ETHANOL INTOXICATION. ANEMIA. ABD DISTENTION. T 97.2 HR 86 RR 20 B/P 112/73 SATS 97% ON RA K 3.3 CL 113 MG 1.7 TBILI 1.2 DBILI 0.6 AST 70 AMMONIA 52 IS: IVF @ 50 mL/HR PROTONIX IV Q12H FOLATE PO QD THIAMINE PO QD VANCO IV Q8H AZITHROMYCIN PO QD LACTULOSE BID IRRIGATION TELE PLAN OF CARE: Pre-op Diagnosis: ascites Procedure: paracentesis Post-op Diagnosis: same as pre-op
[2019-07-16 16:00] VITALS: BP 103/60
--- NOTE | 2019-07-16 17:18 | NUR ---
NURSE NOTES: Patient returned to unit s/p paracentesis. Per tech 5 liters removed. Vital signs taken and stable. Will continue to monitor.
--- NOTE | 2019-07-16 18:20 | Surgery Progress Note ---
Surgery Progress Note Subjective Additional Comments o acute events somewhat arosable incomprensible words no pain exam stable. Objective Last 24 Hour Vital Signs Date Time Temp Pulse Resp B/P (MAP) Pulse Ox O2 Delivery O2 Flow Rate FiO2 07/16/19 12:00 97.2 86 20 112/73 (86) 97 07/16/19 08:00 Room Air 07/16/19 08:00 97.5 87 18 110/72 (85) 96 07/16/19 08:00 86 07/16/19 04:00 86 07/16/19 04:00 97.5 90 18 110/70 (83) 96 07/16/19 00:00 97.5 82 18 111/72 (85) 95 07/16/19 00:00 85 07/15/19 21:00 Room Air 07/15/19 20:00 97.5 93 18 104/69 (81) 96 07/15/19 20:00 91 I&O Intake and Output 07/15/19 07/16/19 19:00 07:00 Intake Total 400 ml 1280 ml Balance 400 ml 1280 ml Intake Oral 300 ml 75 ml IV Total 100 ml 1205 ml # Voids 5 3 # Bowel Movements 1 1 Cardiovascular: RSR Respiratory: clear, decreased breath sounds Abdomen: soft, distended, present bowel sounds, other Extremities: no cyanosis Laboratory Tests Test 07/16/19 05:30 White Blood Count 8.3 K/UL (4.8-10.8) Red Blood Count 2.95 M/UL (4.70-6.10) L Hemoglobin 8.1 G/DL (14.2-18.0) L Hematocrit 27.7 % (42.0-52.0) L Mean Corpuscular Volume 94 FL (80-99) Mean Corpuscular Hemoglobin 27.6 PG (27.0-31.0) Mean Corpuscular Hemoglobin Concent 29.4 G/DL (32.0-36.0) L Red Cell Distribution Width 23.9 % (11.6-14.8) H Platelet Count 117 K/UL (150-450) L Mean Platelet Volume 8.8 FL (6.5-10.1) Neutrophils (%) (Auto) 64.7 % (45.0-75.0) Lymphocytes (%) (Auto) 20.3 % (20.0-45.0) Monocytes (%) (Auto) 11.2 % (1.0-10.0) H Eosinophils (%) (Auto) 1.9 % (0.0-3.0) Basophils (%) (Auto) 2.0 % (0.0-2.0) Prothrombin Time 16.2 SEC (9.30-11.50) H Prothromb Time International Ratio 1.6 (0.9-1.1) H Activated Partial Thromboplast Time 41 SEC (23-33) H Sodium Level 145 MMOL/L (136-145) Potassium Level 3.3 MMOL/L (3.5-5.1) L Chloride Level 113 MMOL/L (98-107) H Carbon Dioxide Level 21 MMOL/L (21-32) Anion Gap 11 mmol/L (5-15) Blood Urea Nitrogen 7 mg/dL (7-18) Creatinine 1.0 MG/DL (0.55-1.30) Estimat Glomerular Filtration Rate > 60 mL/min (>60) Glucose Level 85 MG/DL (74-106) Calcium Level 8.5 MG/DL (8.5-10.1) Phosphorus Level 3.0 MG/DL (2.5-4.9) Magnesium Level 1.7 MG/DL (1.8-2.4) L Total Bilirubin 1.2 MG/DL (0.2-1.0) H Direct Bilirubin 0.6 MG/DL (0.0-0.3) H Aspartate Amino Transf (AST/SGOT) 70 U/L (15-37) H Alanine Aminotransferase (ALT/SGPT) 16 U/L (12-78) Alkaline Phosphatase 99 U/L (46-116) Ammonia 52 umol/L (11-32) H Total Protein 7.1 G/DL (6.4-8.2) Albumin 1.0 G/DL (3.4-5.0) L Globulin 6.1 g/dL Albumin/Globulin Ratio 0.2 (1.0-2.7) L Plan Problems: (1) Abdominal distension Assessment & Plan: Abdominal distention from ascites as he has significant liver dysfunction para with 8L fluid without malignant cells micro with bacteremia labs stable and improving . exam stable still not waking up and encephalopathic Findings: There is ascites fluid present. Gallbladder is unremarkable, without stones, wall thickening, nor pericholecystic fluid. Sonographic Washington's sign is negative. Common bile duct measures 3 mm in diameter. No intrahepatic biliary ductal dilatation. Liver demonstrates slightly increased echogenicity. No focal abnormality. It demonstrates surface nodularity. Portal vein and hepatic veins are patent. Pancreas is obscured by bowel gas. Spleen is unremarkable. Left kidney measures 11.4 cm in length. Right kidney measures 11.1 cm length. Both kidneys demonstrate normal echogenicity. There is no hydronephrosis. No focal abnormality . Abdominal aorta is partially obscured by bowel gas, visualized portions are non-aneurysmal . Impression: Hepatic surface nodularity, suggestive of cirrhosis. Ascites Negative for gallstones or dilated bile ducts (2) Facial trauma Assessment & Plan: Findings: No acute intracranial hemorrhage or edema. No mass effect or midline shift. Normal hardy-white differentiation. Slightly prominent for age ventricles and extra axial CSF spaces. Mild periventricular deep white matter low-attenuation consistent with chronic microvascular ischemic changes noted Questionable minimal left supraorbital scalp contusion. Intact calvarium. Visualized orbits and sinuses are unremarkable. The mastoids are clear. unknown if fall or assault lip with dry blood and in medial aspect small oozing - resolved apply dressing prn thank you Alvin James Jul 16, 2019 18:20
--- NOTE | 2019-07-16 19:29 | NUR ---
HAND-OFF: Report given to JOSEFINA Wilkerson.
--- NOTE | 2019-07-16 19:38 | NUR ---
NURSE NOTES: Received pt from JOSEFINA Santizo. Pt is awake and resting in bed in no acute distress. Iv site intact. Bed locked in lowest position, call light within reach. Will continue with plan of care.
[2019-07-16 20:00] VITALS: BP 141/65
[2019-07-17] VITALS: BP 103/64
[2019-07-17] MEDS: ceFAZolin sod 2 GM in NS 55 ML IVP SCH ×3 (01:17→17:30)
[2019-07-17 04:00] VITALS: BP 109/63
--- NOTE | 2019-07-17 07:17 | NUR ---
NURSE NOTES: Received report from JOSEFINA Wilkerson. Pt is laying in bed. He states that he feels better than he did before. He denies any pain. Bed is in lowest position, side rails up X2 and call light is within reach. will continue to monitor.
--- NOTE | 2019-07-17 07:17 | NUR ---
HAND-OFF: Report given to JOSEFINA Mckeon. Endorsed plan of care.
[2019-07-17 07:32] LABS: BASOPHILS % (AUTO) 1.3 % (0.0-2.0); HEMATOCRIT 32.9 % (42.0-52.0); HEMOGLOBIN 9.7 G/DL (14.2-18.0); MEAN CORPUSCULAR VOLUME 94 FL (80-99); MONOCYTES % (AUTO) 10.3 % (1.0-10.0); NEUTROPHILS % (AUTO) 66.4 % (45.0-75.0); PLATELET COUNT 110 K/UL (150-450); RED CELL DISTRIBUTION WIDTH 23.4 % (11.6-14.8); WHITE BLOOD COUNT 9.9 K/UL (4.8-10.8)
[2019-07-17 08:00] VITALS: BP 109/67
[2019-07-17 08:09] LABS: ALANINE AMINOTRANSFERASE 11 U/L (12-78); ALBUMIN/GLOBULIN RATIO 0.2 (1.0-2.7); ALKALINE PHOSPHATASE 108 U/L (46-116); ANION GAP 8 mmol/L (5-15); ASPARTATE AMINO TRANSFERASE 69 U/L (15-37); BILIRUBIN,TOTAL 1.3 MG/DL (0.2-1.0); BLOOD UREA NITROGEN 7 mg/dL (7-18); CALCIUM 8.7 MG/DL (8.5-10.1); CARBON DIOXIDE 22 MMOL/L (21-32); CHLORIDE 113 MMOL/L (98-107); CREATININE 1.1 MG/DL (0.55-1.30); POTASSIUM 3.8 MMOL/L (3.5-5.1); SODIUM 143 MMOL/L (136-145)
[2019-07-17 08:10] LABS: BILIRUBIN,DIRECT 0.6 MG/DL (0.0-0.3)
[2019-07-17] MEDS ORDERED: Lactulose 20gm/30ml UDC ONE (08:32)
[2019-07-17] MEDS: Lactulose 20gm/30ml UDC ORAL SCH ×3 (08:36→17:30)
[2019-07-17] MEDS: Azithromycin 250mg tab ORAL SCH (08:37)
[2019-07-17] MEDS: Thiamine 100mg tab ORAL SCH (08:37)
--- NOTE | 2019-07-17 08:53 | NUR ---
CASE MANAGEMENT: REVIEW 07/17/2019 SI:ETHANOL INTOXICATION. ANEMIA. ABD DISTENTION. T 97.3 HR 84 EE 20 B/P 109/67 SATS 96% ON RA CL 113 TBILI 1.3 DBILI 0.6 AST 69 ALT 11 IS: IVF @ 50 mL/HR PROTONIX IV Q12H FOLATE PO QD THIAMINE PO QD VANCO IV Q8H AZITHROMYCIN PO QD LACTULOSE BID IRRIGATION TELE
--- NOTE | 2019-07-17 10:13 | GI Progress Note ---
Assessment/Plan Problems: (1) Ascites ICD Codes: R18.8 - Other ascites SNOMED: 824211047 (2) Cirrhosis ICD Codes: K74.60 - Unspecified cirrhosis of liver SNOMED: 59879641 (3) Abdominal distension ICD Codes: R14.0 - Abdominal distension (gaseous) SNOMED: 48533426 (4) Acute alcoholic intoxication ICD Codes: F10.929 - Alcohol use, unspecified with intoxication, unspecified SNOMED: 39369158, 0039911 Qualifiers: Qualified Codes: F10.929 - Alcohol use, unspecified with intoxication, unspecified (5) Anemia ICD Codes: D64.9 - Anemia, unspecified SNOMED: 633851200 Qualifiers: Qualified Codes: D64.9 - Anemia, unspecified Status: unchanged Status Narrative Discussed with Dr. Guzman. Assessment/Plan (1) Anemia (2) Acute alcoholic intoxication (3) Cirrhosis (4) Ascites (5) Encephalopathy / delirium (6) abnormal lytes tolerating diet no obvious GIB per nurses, OB stool negative Recommendations repeat paracentesis pending vit k given protonix eating better , continue to push PO on Librium now The patient was seen and examined at bedside and all new and available data was reviewed in the patients chart. I agree with the above findings, impression and plan. (Patient seen earlier today. Signature stamp does not reflect patient encounter time.). - Robert Guzman MD Subjective Subjective limited Objective Last 24 Hour Vital Signs Date Time Temp Pulse Resp B/P (MAP) Pulse Ox O2 Delivery O2 Flow Rate FiO2 07/17/19 08:00 97.3 84 20 109/67 (81) 96 07/17/19 04:00 88 07/17/19 04:00 97.5 88 18 109/63 (78) 93 07/17/19 00:00 80 07/17/19 00:00 97.3 80 18 103/64 (77) 95 07/16/19 21:00 Room Air 07/16/19 20:00 97.4 81 19 141/65 (90) 96 07/16/19 20:00 81 07/16/19 16:00 96 07/16/19 16:00 97.2 83 18 103/60 (74) 96 07/16/19 12:00 97.2 86 20 112/73 (86) 97 07/16/19 12:00 84 Intake and Output 07/16/19 07/17/19 19:00 07:00 Intake Total 240 ml Balance 240 ml Intake Oral 240 ml # Voids 1 3 # Bowel Movements 1 1 Laboratory Tests Test 07/17/19 06:32 White Blood Count 9.9 K/UL (4.8-10.8) Red Blood Count 3.50 M/UL (4.70-6.10) L Hemoglobin 9.7 G/DL (14.2-18.0) L Hematocrit 32.9 % (42.0-52.0) L Mean Corpuscular Volume 94 FL (80-99) Mean Corpuscular Hemoglobin 27.9 PG (27.0-31.0) Mean Corpuscular Hemoglobin Concent 29.7 G/DL (32.0-36.0) L Red Cell Distribution Width 23.4 % (11.6-14.8) H Platelet Count 110 K/UL (150-450) L Mean Platelet Volume 7.0 FL (6.5-10.1) Neutrophils (%) (Auto) 66.4 % (45.0-75.0) Lymphocytes (%) (Auto) 21.0 % (20.0-45.0) Monocytes (%) (Auto) 10.3 % (1.0-10.0) H Eosinophils (%) (Auto) 1.0 % (0.0-3.0) Basophils (%) (Auto) 1.3 % (0.0-2.0) Sodium Level 143 MMOL/L (136-145) Potassium Level 3.8 MMOL/L (3.5-5.1) Chloride Level 113 MMOL/L (98-107) H Carbon Dioxide Level 22 MMOL/L (21-32) Anion Gap 8 mmol/L (5-15) Blood Urea Nitrogen 7 mg/dL (7-18) Creatinine 1.1 MG/DL (0.55-1.30) Estimat Glomerular Filtration Rate > 60 mL/min (>60) Glucose Level 84 MG/DL (74-106) Calcium Level 8.7 MG/DL (8.5-10.1) Total Bilirubin 1.3 MG/DL (0.2-1.0) H Direct Bilirubin 0.6 MG/DL (0.0-0.3) H Aspartate Amino Transf (AST/SGOT) 69 U/L (15-37) H Alanine Aminotransferase (ALT/SGPT) 11 U/L (12-78) L Alkaline Phosphatase 108 U/L (46-116) Total Protein 7.3 G/DL (6.4-8.2) Albumin 1.0 G/DL (3.4-5.0) L Globulin 6.3 g/dL Albumin/Globulin Ratio 0.2 (1.0-2.7) L Height (Feet): 5 Height (Inches): 8.00 Weight (Pounds): 150 General Appearance: no apparent distress, alert Cardiovascular: normal rate Respiratory/Chest: normal breath sounds, no respiratory distress Abdominal Exam: normal bowel sounds, non tender, soft, ascites - abdomen soft Extremities: non-tender Maryam Castellanos NP Jul 17, 2019 10:13
--- NOTE | 2019-07-17 11:00 | Diagnostic Imaging Report ---
Indications: Ascites Technique: Ultrasound used to localize optimal puncture site. Sterile prepping and draping right lower quadrant. Local anesthesia with 1% lidocaine. Under real-time ultrasound guidance, puncture peritoneal space using paracentesis needle. Stylet removed. Catheter placed to vacuum bottle suction. Total 5 liters of fluid aspirated. Patient tolerated procedure well, without immediate complication. Findings: Followup sonography demonstrates complete resolution of peritoneal fluid. Impression: Successful ultrasound-guided paracentesis, yielding 5 liters of fluid
[2019-07-17 12:00] VITALS: BP 119/68
--- NOTE | 2019-07-17 12:57 | General Progress Note ---
Assessment/Plan Status: stable, unchanged Assessment/Plan: 48-year-old male with past medical history of ETOH abuse presented found down. Overall improving s/p paracentesis 07/16/19 #Encephalopathy likely multifactorial including hepatic encephalopathy ( elevated ammonia), as well as sepsis with bacteremia due to MSSA. #Sepsis secondary to bacteremia due to MSSA -s/p vancomycin and Zosyn (07/06), now cefazolin per ID recs -Infectious disease consult, appreciate recs #Hypernatremia D5W @ 75 ml/rh, encourage PO intake # Lice - primerin treatment - Ordered to clip hair as persistent lice noted despite 2 shampoo treatment #Liver cirrhosis secondary to EtOH # ETOH withdrawal. Libirum being used. - DF 31 -MELD 15 on admission -Abdominal ultrasound reviewed -Status post paracentesis 07/05/2019 with removal of 8 L. -Albumin for BP support as needed -Supportive care - lactulose SC - Repeat paracentesis 07/16. Recheck INR, VIT K and ffp as needed #Anemia, likely might multifactorial including acute blood loss anemia, anemia of chronic disease -Hematology consult, appreciate recs -Iron panel: Reviewed -Low folate: Replace -B12 within normal limits above 800 -GI consult, appreciate recs. HOLD OFF NGT for now due to risk with possible esophageal varices. PENDING EGD per GI decision. Patient is gradually waking up and eating is still a problem. MONITOR closely as he is now 9 days into the Hospital stay. #Thrombocytopenia -due to cirrhosis- stable #Substance abuse -Nodular liver in ultrasound suggestive of cirrhosis -Check hepatitis and HIV: hiv neg, hepatitis panel negative -Social work Consult - Psyche consult, appreciate recs #Hypokalemia Replace as needed, will replace today # Hypomagnesemia Replace today # Hypocalcemia - replace as needed #Dysphagia -Etiology due to agitation, likely due underlying hepatic encephalopathy vs side effect of Ativan #full code # Disposition SW and CM follow up needed. Homeless. The time of my note may not reflect the time of my patient encounter. I spent 40 minutes on this encounter, greater than 50 percent in counseling and care coordination Subjective Date patient seen: Jul 17, 2019 ROS Limited/Unobtainable: Yes Allergies: Coded Allergies: No Known Allergies (Unverified , 07/03/19) Subjective seen and examined awake agitated trying to get out of bed Objective Last 24 Hour Vital Signs Date Time Temp Pulse Resp B/P (MAP) Pulse Ox O2 Delivery O2 Flow Rate FiO2 07/17/19 08:00 97.3 84 20 109/67 (81) 96 07/17/19 04:00 88 07/17/19 04:00 97.5 88 18 109/63 (78) 93 07/17/19 00:00 80 07/17/19 00:00 97.3 80 18 103/64 (77) 95 07/16/19 21:00 Room Air 07/16/19 20:00 97.4 81 19 141/65 (90) 96 07/16/19 20:00 81 07/16/19 16:00 96 07/16/19 16:00 97.2 83 18 103/60 (74) 96 Intake and Output 07/16/19 07/17/19 19:00 07:00 Intake Total 240 ml Balance 240 ml Intake Oral 240 ml # Voids 1 3 # Bowel Movements 1 1 Laboratory Tests 07/17/19 06:32: White Blood Count 9.9, Red Blood Count 3.50L, Hemoglobin 9.7L, Hematocrit 32.9L , Mean Corpuscular Volume 94, Mean Corpuscular Hemoglobin 27.9, Mean Corpuscular Hemoglobin Concent 29.7L, Red Cell Distribution Width 23.4H, Platelet Count 110L, Mean Platelet Volume 7.0, Neutrophils (%) (Auto) 66.4, Lymphocytes (%) (Auto) 21.0, Monocytes (%) (Auto) 10.3H, Eosinophils (%) (Auto) 1.0, Basophils (%) (Auto) 1.3, Sodium Level 143, Potassium Level 3.8, Chloride Level 113H, Carbon Dioxide Level 22, Anion Gap 8, Blood Urea Nitrogen 7, Creatinine 1.1, Estimat Glomerular Filtration Rate > 60, Glucose Level 84, Calcium Level 8.7, Total Bilirubin 1.3H, Direct Bilirubin 0.6H, Aspartate Amino Transf (AST/SGOT) 69H, Alanine Aminotransferase (ALT/SGPT) 11L, Alkaline Phosphatase 108, Total Protein 7.3, Albumin 1.0L, Globulin 6.3, Albumin/ Globulin Ratio 0.2L Height (Feet): 5 Height (Inches): 8.00 Weight (Pounds): 150 Objective General Appearance: moderate distress EENT: PERRL/EOMI, normal ENT inspection Cardiovascular: normal rate Respiratory/Chest: lungs clear Abdomen: distended, hepatomegaly Edema: trace edema Neurologic: executive chef assistant II-XII 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 Jul 17, 2019 12:57
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
--- NOTE | 2019-07-17 15:50 | NUR ---
WEEKLY SWALLOW/SPEECH THERAPY SUMMARY: PATIENT SEEN FOR DYSPHAGIA, SEE SWALLOW EVAL. UNABLE TO HAVE MOD BARIUM SWALLOW STUDY DUE TO SCHEDULE CONFLICTS. PATIENT DISLIKES CURRENT DIET (CARDIAC PUREED AND NECTAR THICK LIQUID DIET) AND WANTS Q[place] (SOFT FOOD), WILL TRY TO UPGRADE TOMORROW. GOALS NOT MET FOR INTAKE (FEW BITES TO 0%) GOALS MET FOR STAFF EDUCATED/TRAINED IN POSTED PRECAUTIONS. PLAN: CONTINUE WITH SKILLED SWALLOW MANAGEMENT AND TX COMPLETE MOD BARIUM SWALLOW STUDY INPATIENT OR OP IF DC (DO NOT HOLD UP DC FOR THIS STUDY) CONSIDER PUSHING HIGH BLAKE SUPPLEMENTS ENSURE TID CONSIDER NONORAL FEEDINGS IF NEEDED CONSIDER CALORIE COUNT D/W ANETTE CAMEJO
[2019-07-17 16:00] VITALS: BP 110/64
--- NOTE | 2019-07-17 16:54 | Infectious Diseases Prog Note ---
Assessment/Plan Assessment/Plan A) 1) mssa bacteremia 2) liver cirrhosis 3) anemia 4) allergies - nkda 5) hx substance abuse 6) d/w RN, -nc 7) d/w RN P) 1) ancef - day # 11 iv abx - plan on 14 days iv abx then 2 weeks oral keflex 2) check labs, chest-x-ray, monitor labs 3) s/p tx for head lice 4) surveillance blood cultures negative 5) will f/u Subjective Constitutional: Denies: fever HEENT: Denies: congestion Respiratory: Denies: shortness of breath Cardiovascular: Denies: chest pain Gastrointestinal/Abdominal: Denies: nausea, vomiting, diarrhea Genitourinary: Reports: other - no mariano Neurologic: Denies: headache Skin: Denies: rash Hematologic: Denies: bleeding Musculoskeletal: Denies: pain Allergies: Coded Allergies: No Known Allergies (Unverified , 07/03/19) Objective Vital Signs Last 24 Hour Vital Signs Date Time Temp Pulse Resp B/P (MAP) Pulse Ox O2 Delivery O2 Flow Rate FiO2 07/17/19 16:00 92 07/17/19 16:00 97.8 89 20 110/64 (79) 95 07/17/19 12:00 93 07/17/19 12:00 97.6 94 20 119/68 (85) 98 07/17/19 09:00 Room Air 07/17/19 08:00 97.3 84 20 109/67 (81) 96 07/17/19 08:00 87 07/17/19 04:00 88 07/17/19 04:00 97.5 88 18 109/63 (78) 93 07/17/19 00:00 80 07/17/19 00:00 97.3 80 18 103/64 (77) 95 07/16/19 21:00 Room Air 07/16/19 20:00 97.4 81 19 141/65 (90) 96 07/16/19 20:00 81 Height (Feet): 5 Height (Inches): 8.00 Weight (Pounds): 150 General Appearance: no acute distress HEENT: normocephalic, atraumatic, anicteric Respiratory/Chest: lungs clear, normal breath sounds, no respiratory distress, no accessory muscle use Cardiovascular: normal rate, regular rhythm, no gallop/murmur, no JVD Abdomen: normal bowel sounds, soft, non tender, no organomegaly, non distended Genitourinary: other - no mariano Extremities: no cyanosis Skin: no rash Neurologic/Psychiatric: medical records specialist II-XII grossly normal, alert, responsive Lymphatic: no neck adenopathy Musculoskeletal: no effusion Objective 07/09/19 - chest x-ray - Comparison: 07/06/2019 Findings: Bilateral interstitial disease has developed in the interim. There may be some patchy retrocardiac consolidation as well which is unchanged. The left costophrenic angle remains blunted. The heart is borderline enlarged Impression: Development of bilateral interstitial infiltrates versus edema, over 3 days. Persistent patchy retrocardiac consolidation and possible small left pleural effusion 07/12/19 - chest x-ray - Comparison: 07/09/2019 A single view chest radiograph was obtained. Findings: Basal atelectasis demonstrated with low lung volumes. Heart size is stable and within normal limits. IMPRESSION: No change compared to the previous exam. Basal atelectasis Laboratory Tests Test 07/17/19 06:32 White Blood Count 9.9 K/UL (4.8-10.8) Red Blood Count 3.50 M/UL (4.70-6.10) L Hemoglobin 9.7 G/DL (14.2-18.0) L Hematocrit 32.9 % (42.0-52.0) L Mean Corpuscular Volume 94 FL (80-99) Mean Corpuscular Hemoglobin 27.9 PG (27.0-31.0) Mean Corpuscular Hemoglobin Concent 29.7 G/DL (32.0-36.0) L Red Cell Distribution Width 23.4 % (11.6-14.8) H Platelet Count 110 K/UL (150-450) L Mean Platelet Volume 7.0 FL (6.5-10.1) Neutrophils (%) (Auto) 66.4 % (45.0-75.0) Lymphocytes (%) (Auto) 21.0 % (20.0-45.0) Monocytes (%) (Auto) 10.3 % (1.0-10.0) H Eosinophils (%) (Auto) 1.0 % (0.0-3.0) Basophils (%) (Auto) 1.3 % (0.0-2.0) Sodium Level 143 MMOL/L (136-145) Potassium Level 3.8 MMOL/L (3.5-5.1) Chloride Level 113 MMOL/L (98-107) H Carbon Dioxide Level 22 MMOL/L (21-32) Anion Gap 8 mmol/L (5-15) Blood Urea Nitrogen 7 mg/dL (7-18) Creatinine 1.1 MG/DL (0.55-1.30) Estimat Glomerular Filtration Rate > 60 mL/min (>60) Glucose Level 84 MG/DL (74-106) Calcium Level 8.7 MG/DL (8.5-10.1) Total Bilirubin 1.3 MG/DL (0.2-1.0) H Direct Bilirubin 0.6 MG/DL (0.0-0.3) H Aspartate Amino Transf (AST/SGOT) 69 U/L (15-37) H Alanine Aminotransferase (ALT/SGPT) 11 U/L (12-78) L Alkaline Phosphatase 108 U/L (46-116) Total Protein 7.3 G/DL (6.4-8.2) Albumin 1.0 G/DL (3.4-5.0) L Globulin 6.3 g/dL Albumin/Globulin Ratio 0.2 (1.0-2.7) L Current Medications Medications (Trade) Dose Ordered Sig/Tanja Route PRN Reason Start Time Stop Time Status Last Admin Dose Admin Azithromycin (Zithromax) 500 mg DAILY ORAL 07/15/19 09:00 07/22/19 08:59 07/17/19 08:37 Cefazolin Sodium 2 gm/Sodium Chloride 55 ml @ 110 mls/hr Q8H IVP 07/13/19 17:00 07/20/19 16:59 07/17/19 10:44 Dextrose 1,000 ml @ 100 mls/hr Q10H IV 07/14/19 16:45 08/13/19 16:44 07/17/19 13:33 Folic Acid (Folate) 1 mg DAILY ORAL 07/11/19 09:00 08/03/19 10:29 07/17/19 08:36 Lactulose (Cephulac) 20 gm THREE TIMES A DAY ORAL 07/11/19 09:00 08/04/19 12:59 07/17/19 13:33 Pantoprazole (Protonix) 40 mg EVERY 12 HOURS ORAL 07/14/19 21:00 08/13/19 20:59 07/17/19 08:36 Potassium Chloride (K-Dur) 40 meq DAILY ORAL 07/16/19 09:00 08/15/19 08:59 07/17/19 08:36 Rifaximin (Xifaxan) 550 mg EVERY 12 HOURS ORAL 07/14/19 21:00 07/21/19 20:59 07/17/19 08:36 Thiamine HCl (Vitamin B1) 100 mg DAILY ORAL 07/11/19 09:00 08/03/19 10:29 07/17/19 08:37 Dionna Tee MD Jul 17, 2019 16:54
--- NOTE | 2019-07-17 19:01 | Hematology/Onc Progress Note ---
Assessment/Plan Assessment/Plan ASSESSMENT AND RECS # Anemia of iron deficiency in addition to suppression from etoh abuse and cirrhosis of liver --> Anemia workup has been ordered, rule out gi bleed --> aid noted --> No evidence of hemolysis is noted, peripheral smear has been reviewed. --> Hgb goal >7. Transfuse prn. --> Hgb trend: 4.2-->7.1-->7.6 --> 7.6-->7.7-->8.9-->9.1-->8.9-->8.5->8.8 --> IRON IV 200mg ordered x 1dose --> Medications have been reviewed --> stool ob negative --> bone marrow biopsy is not indicated given the other more likely causes # Thrombocytopenia - secondary to liver cirrhosis --> Hep panel and HIV ordered - both negative --> US abd to evaluate for cirrhosis and hsm ordered - Hepatic surface nodularity, suggestive of cirrhosis. Ascites --> Peripheral smear ordered to evaluate for blasts /schistocytes and none significant noted --> abx and other meds have been reviewed --> ok for ppx if plt >50k w/ either heparin or lovenox --> Transfuse if Plt < 20k and fever, or if Plt < 10k without fever --> plt trend 90-->92k-->82-->92k-->85k-->104 # Coagulopathy due to liver cirrhosis secondary to Etoh --> GI is following, appreciate recs --> Abdominal ultrasound reviewed --> Supportive care --> lactulose prophylactic --> vit K on prn basis 07/15 # Substance abuse --> psych eval # Hypokalemia --> Replace, continue to monitor # Hypocalcemia --> replete Ca++ prn # Cirrhosis of the liver The timing of this note does not necessarily reflect the time of the patient was seen. GREATLY APPRECIATE CONSULTATION. Subjective Allergies: Coded Allergies: No Known Allergies (Unverified , 07/03/19) Subjective 07/05: no fevers, chills or night sweats noted, on iv iron has been started, on benzo 07/07: extremely agitated overnight, climbin out of bed, on cristina taper, h/h low 07/08: remains on abx, no f/c, no bleeding is noted, no changes 07/09: paracentesis negative for malignant cells, cxr and labs reviewed 07/10: no acute distress, still drowsy, has been attempting to get out of bed 07/11: transferred [facility], stool ob negative, h/h stable 07/12: imaging reviewed, on abx, us paracentesis, no distress 07/13: remains on librium, plt 85, hgb 8.5, no f/c, no night sweats 07/15: no bleeding, pt/ptt elevated, given vit K, no f/c, no chills noted 07/16: for repeat paracentesis, no f/c, no bleeding 07/17: us paracentesis, vs stable, no f/c, denies any pain, on abx, med reviewed Objective Objective Current Medications Medications (Trade) Dose Ordered Sig/Tanja Route PRN Reason Start Time Stop Time Status Last Admin Dose Admin Azithromycin (Zithromax) 500 mg DAILY ORAL 07/15/19 09:00 07/22/19 08:59 07/17/19 08:37 Cefazolin Sodium 2 gm/Sodium Chloride 55 ml @ 110 mls/hr Q8H IVP 07/13/19 17:00 07/20/19 16:59 07/17/19 17:30 Dextrose 1,000 ml @ 100 mls/hr Q10H IV 07/14/19 16:45 08/13/19 16:44 07/17/19 13:33 Folic Acid (Folate) 1 mg DAILY ORAL 07/11/19 09:00 08/03/19 10:29 07/17/19 08:36 Lactulose (Cephulac) 20 gm THREE TIMES A DAY ORAL 07/11/19 09:00 08/04/19 12:59 07/17/19 17:30 Pantoprazole (Protonix) 40 mg EVERY 12 HOURS ORAL 07/14/19 21:00 08/13/19 20:59 07/17/19 08:36 Potassium Chloride (K-Dur) 40 meq DAILY ORAL 07/16/19 09:00 08/15/19 08:59 07/17/19 08:36 Rifaximin (Xifaxan) 550 mg EVERY 12 HOURS ORAL 07/14/19 21:00 07/21/19 20:59 07/17/19 08:36 Thiamine HCl (Vitamin B1) 100 mg DAILY ORAL 07/11/19 09:00 08/03/19 10:29 07/17/19 08:37 Last 24 Hour Vital Signs Date Time Temp Pulse Resp B/P (MAP) Pulse Ox O2 Delivery O2 Flow Rate FiO2 07/17/19 16:00 92 07/17/19 16:00 97.8 89 20 110/64 (79) 95 07/17/19 12:00 93 07/17/19 12:00 97.6 94 20 119/68 (85) 98 07/17/19 09:00 Room Air 07/17/19 08:00 97.3 84 20 109/67 (81) 96 07/17/19 08:00 87 07/17/19 04:00 88 07/17/19 04:00 97.5 88 18 109/63 (78) 93 07/17/19 00:00 80 07/17/19 00:00 97.3 80 18 103/64 (77) 95 07/16/19 21:00 Room Air 07/16/19 20:00 97.4 81 19 141/65 (90) 96 07/16/19 20:00 81 07/16/19 16:00 96 07/16/19 16:00 97.2 83 18 103/60 (74) 96 07/16/19 12:00 97.2 86 20 112/73 (86) 97 07/16/19 12:00 84 07/16/19 08:00 Room Air 07/16/19 08:00 97.5 87 18 110/72 (85) 96 07/16/19 08:00 86 07/16/19 04:00 86 07/16/19 04:00 97.5 90 18 110/70 (83) 96 07/16/19 00:00 97.5 82 18 111/72 (85) 95 07/16/19 00:00 85 07/15/19 21:00 Room Air 07/15/19 20:00 97.5 93 18 104/69 (81) 96 07/15/19 20:00 91 Intake and Output 07/16/19 07/17/19 19:00 07:00 Intake Total 240 ml Balance 240 ml Intake Oral 240 ml # Voids 1 3 # Bowel Movements 1 1 Labs Test 07/15/19 06:45 07/15/19 11:10 07/16/19 05:30 07/17/19 06:32 White Blood Count 8.0 K/UL (4.8-10.8) 8.3 K/UL (4.8-10.8) 9.9 K/UL (4.8-10.8) Red Blood Count 3.17 M/UL (4.70-6.10) 2.95 M/UL (4.70-6.10) 3.50 M/UL (4.70-6.10) Hemoglobin 8.8 G/DL (14.2-18.0) 8.1 G/DL (14.2-18.0) 9.7 G/DL (14.2-18.0) Hematocrit 29.6 % (42.0-52.0) 27.7 % (42.0-52.0) 32.9 % (42.0-52.0) Mean Corpuscular Volume 94 FL (80-99) 94 FL (80-99) 94 FL (80-99) Mean Corpuscular Hemoglobin 27.9 PG (27.0-31.0) 27.6 PG (27.0-31.0) 27.9 PG (27.0-31.0) Mean Corpuscular Hemoglobin Concent 29.8 G/DL (32.0-36.0) 29.4 G/DL (32.0-36.0) 29.7 G/DL (32.0-36.0) Red Cell Distribution Width 23.8 % (11.6-14.8) 23.9 % (11.6-14.8) 23.4 % (11.6-14.8) Platelet Count 104 K/UL (150-450) 117 K/UL (150-450) 110 K/UL (150-450) Mean Platelet Volume 7.1 FL (6.5-10.1) 8.8 FL (6.5-10.1) 7.0 FL (6.5-10.1) Neutrophils (%) (Auto) 64.6 % (45.0-75.0) 64.7 % (45.0-75.0) 66.4 % (45.0-75.0) Lymphocytes (%) (Auto) 21.8 % (20.0-45.0) 20.3 % (20.0-45.0) 21.0 % (20.0-45.0) Monocytes (%) (Auto) 11.4 % (1.0-10.0) 11.2 % (1.0-10.0) 10.3 % (1.0-10.0) Eosinophils (%) (Auto) 0.9 % (0.0-3.0) 1.9 % (0.0-3.0) 1.0 % (0.0-3.0) Basophils (%) (Auto) 1.2 % (0.0-2.0) 2.0 % (0.0-2.0) 1.3 % (0.0-2.0) Sodium Level 146 MMOL/L (136-145) 145 MMOL/L (136-145) 143 MMOL/L (136-145) Potassium Level 3.1 MMOL/L (3.5-5.1) 3.3 MMOL/L (3.5-5.1) 3.8 MMOL/L (3.5-5.1) Chloride Level 114 MMOL/L (98-107) 113 MMOL/L (98-107) 113 MMOL/L (98-107) Carbon Dioxide Level 21 MMOL/L (21-32) 21 MMOL/L (21-32) 22 MMOL/L (21-32) Anion Gap 11 mmol/L (5-15) 11 mmol/L (5-15) 8 mmol/L (5-15) Blood Urea Nitrogen 9 mg/dL (7-18) 7 mg/dL (7-18) 7 mg/dL (7-18) Creatinine 1.2 MG/DL (0.55-1.30) 1.0 MG/DL (0.55-1.30) 1.1 MG/DL (0.55-1.30) Estimat Glomerular Filtration Rate > 60 mL/min (>60) > 60 mL/min (>60) > 60 mL/min (>60) Glucose Level 93 MG/DL (74-106) 85 MG/DL (74-106) 84 MG/DL (74-106) Calcium Level 8.6 MG/DL (8.5-10.1) 8.5 MG/DL (8.5-10.1) 8.7 MG/DL (8.5-10.1) Magnesium Level 1.7 MG/DL (1.8-2.4) 1.7 MG/DL (1.8-2.4) Total Bilirubin 1.0 MG/DL (0.2-1.0) 1.2 MG/DL (0.2-1.0) 1.3 MG/DL (0.2-1.0) Aspartate Amino Transf (AST/SGOT) 79 U/L (15-37) 70 U/L (15-37) 69 U/L (15-37) Alanine Aminotransferase (ALT/SGPT) 24 U/L (12-78) 16 U/L (12-78) 11 U/L (12-78) Alkaline Phosphatase 99 U/L (46-116) 99 U/L (46-116) 108 U/L (46-116) Total Protein 7.4 G/DL (6.4-8.2) 7.1 G/DL (6.4-8.2) 7.3 G/DL (6.4-8.2) Albumin 1.1 G/DL (3.4-5.0) 1.0 G/DL (3.4-5.0) 1.0 G/DL (3.4-5.0) Globulin 6.3 g/dL 6.1 g/dL 6.3 g/dL Albumin/Globulin Ratio 0.2 (1.0-2.7) 0.2 (1.0-2.7) 0.2 (1.0-2.7) Prothrombin Time 16.4 SEC (9.30-11.50) 16.2 SEC (9.30-11.50) Prothromb Time International Ratio 1.6 (0.9-1.1) 1.6 (0.9-1.1) Activated Partial Thromboplast Time 39 SEC (23-33) 41 SEC (23-33) Ammonia 49 umol/L (11-32) 52 umol/L (11-32) Phosphorus Level 3.0 MG/DL (2.5-4.9) Direct Bilirubin 0.6 MG/DL (0.0-0.3) 0.6 MG/DL (0.0-0.3) Height (Feet): 5 Height (Inches): 8.00 Weight (Pounds): 150 Objective Physical Exam: Vitals: reviewed General Appearance: NAD HEENT: normocephalic, atraumatic Neck: non-tender, normal alignment Respiratory/Chest: normal breath sounds bilaterally Cardiovascular/Chest: normal peripheral pulses, normal rate Abdomen: normal bowel sounds, soft, nontender +++ ascites Avery Guo MD Jul 17, 2019 19:01
--- NOTE | 2019-07-17 19:47 | NUR ---
HAND-OFF: Report given to JOSEFINA Bowman. Plan of care endorsed
[2019-07-17 20:00] VITALS: BP_SYST 106; BP_SYST 118; BP_DIAS 67; BP_DIAS 74
[2019-07-17] MEDS: Pantoprazole Inj IVP SCH (20:55)
[2019-07-18] VITALS: BP 106/67
[2019-07-18] MEDS: ceFAZolin sod 2 GM in NS 55 ML IVP SCH ×3 (02:23→18:04)
[2019-07-18 04:00] VITALS: BP 106/67
[2019-07-18 06:55] LABS: BASOPHILS % (AUTO) 1.3 % (0.0-2.0); HEMATOCRIT 30.1 % (42.0-52.0); HEMOGLOBIN 8.9 G/DL (14.2-18.0); LYMPHOCYTES % (AUTO) 22.2 % (20.0-45.0); MEAN CORPUSCULAR VOLUME 93 FL (80-99); NEUTROPHILS % (AUTO) 62.5 % (45.0-75.0); PLATELET COUNT 122 K/UL (150-450); RED BLOOD COUNT 3.25 M/UL (4.70-6.10); RED CELL DISTRIBUTION WIDTH 22.5 % (11.6-14.8); WHITE BLOOD COUNT 8.4 K/UL (4.8-10.8)
--- NOTE | 2019-07-18 07:10 | NUR ---
HAND-OFF: Report given to JOSEFINA Mckeon.
[2019-07-18 07:17] LABS: ALANINE AMINOTRANSFERASE 9 U/L (12-78); ALBUMIN/GLOBULIN RATIO 0.2 (1.0-2.7); ALKALINE PHOSPHATASE 112 U/L (46-116); ANION GAP 7 mmol/L (5-15); ASPARTATE AMINO TRANSFERASE 71 U/L (15-37); BILIRUBIN,TOTAL 1.5 MG/DL (0.2-1.0); BLOOD UREA NITROGEN 7 mg/dL (7-18); CALCIUM 8.7 MG/DL (8.5-10.1); CARBON DIOXIDE 24 MMOL/L (21-32); CHLORIDE 113 MMOL/L (98-107); CREATININE 1.1 MG/DL (0.55-1.30); POTASSIUM 3.5 MMOL/L (3.5-5.1); SODIUM 144 MMOL/L (136-145)
[2019-07-18 07:22] LABS: PHOSPHORUS 2.8 MG/DL (2.5-4.9)
[2019-07-18 07:23] LABS: BILIRUBIN,DIRECT 0.8 MG/DL (0.0-0.3)
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
[2019-07-18 08:00] VITALS: BP 96/62
[2019-07-18] MEDS: Azithromycin 250mg tab ORAL SCH (08:34)
[2019-07-18] MEDS: Lactulose 20gm/30ml UDC ORAL SCH ×3 (08:34→18:00)
[2019-07-18] MEDS: Pantoprazole Inj IVP SCH ×2 (08:34→21:36)
[2019-07-18] MEDS: Thiamine 100mg tab ORAL SCH (08:34)
--- NOTE | 2019-07-18 09:04 | Hematology/Onc Progress Note ---
Assessment/Plan Assessment/Plan ASSESSMENT AND RECS # Anemia of iron deficiency in addition to suppression from etoh abuse and cirrhosis of liver --> Anemia workup has been ordered, rule out gi bleed --> aid noted --> No evidence of hemolysis is noted, peripheral smear has been reviewed. --> Hgb goal >7. Transfuse prn. --> Hgb trend: 4.2-->7.1-->7.6 --> 7.6-->7.7-->8.9-->9.1-->8.9-->8.5->8.8-->8.9 --> IRON IV 200mg ordered x 1dose --> Medications have been reviewed --> stool ob negative --> bone marrow biopsy is not indicated given the other more likely causes # Thrombocytopenia - secondary to liver cirrhosis --> Hep panel and HIV ordered - both negative --> US abd to evaluate for cirrhosis and hsm ordered - Hepatic surface nodularity, suggestive of cirrhosis. Ascites --> Peripheral smear ordered to evaluate for blasts /schistocytes and none significant noted --> abx and other meds have been reviewed --> ok for ppx if plt >50k w/ either heparin or lovenox --> Transfuse if Plt < 20k and fever, or if Plt < 10k without fever --> plt trend 90-->92k-->82-->92k-->85k-->104k-->122k # Coagulopathy due to liver cirrhosis secondary to Etoh --> GI is following, appreciate recs --> Abdominal ultrasound reviewed --> Supportive care --> lactulose prophylactic --> vit K on prn basis 07/15 # Substance abuse --> psych eval # Hypokalemia --> Replace, continue to monitor # Hypocalcemia --> replete Ca++ prn # Cirrhosis of the liver --> appears chronic The timing of this note does not necessarily reflect the time of the patient was seen. GREATLY APPRECIATE CONSULTATION. Subjective Constitutional: Denies: no symptoms, chills, fever, malaise, weakness, other HEENT: Denies: no symptoms, eye pain, blurred vision, tearing, double vision, ear pain, ear discharge, nose pain, nose congestion, throat pain, throat swelling, mouth pain, mouth swelling, other Cardiovascular: Denies: no symptoms, chest pain, edema, irregular heart rate, lightheadedness, palpitations, syncope, other Genitourinary: Denies: no symptoms, burning, discharge, frequency, flank pain, hematuria, incontinence, pain, urgency, other Neurologic/Psychiatric: Denies: no symptoms, anxiety, depressed, emotional problems, headache, numbness, paresthesia, pre-existing deficit, seizure, tingling, tremors, weakness, other Endocrine: Denies: no symptoms, excessive sweating, flushing, intolerance to cold, intolerance to heat, increased hunger, increased thirst, increased urine, unexplained weight gain, unexplained weight loss, other Allergies: Coded Allergies: No Known Allergies (Unverified , 07/03/19) Subjective 07/05: no fevers, chills or night sweats noted, on iv iron has been started, on benzo 07/07: extremely agitated overnight, climbin out of bed, on cristina taper, h/h low 07/08: remains on abx, no f/c, no bleeding is noted, no changes 07/09: paracentesis negative for malignant cells, cxr and labs reviewed 07/10: no acute distress, still drowsy, has been attempting to get out of bed 07/11: transferred [facility] to [facility], stool ob negative, h/h stable 07/12: imaging reviewed, on abx, us paracentesis, no distress 07/13: remains on librium, plt 85, hgb 8.5, no f/c, no night sweats 07/15: no bleeding, pt/ptt elevated, given vit K, no f/c, no chills noted 07/16: for repeat paracentesis, no f/c, no bleeding 07/17: us paracentesis, vs stable, no f/c, denies any pain, on abx, med reviewed 07/18: remains on ancef for now 14d as per id, no bleeding reported, no f/c Objective Objective Current Medications Medications (Trade) Dose Ordered Sig/Tanja Route PRN Reason Start Time Stop Time Status Last Admin Dose Admin Azithromycin (Zithromax) 500 mg DAILY ORAL 07/15/19 09:00 07/22/19 08:59 07/18/19 08:34 Cefazolin Sodium 2 gm/Sodium Chloride 55 ml @ 110 mls/hr Q8H IVP 07/13/19 17:00 07/20/19 16:59 07/18/19 02:23 Dextrose 1,000 ml @ 100 mls/hr Q10H IV 07/14/19 16:45 08/13/19 16:44 07/17/19 13:33 Folic Acid (Folate) 1 mg DAILY ORAL 07/11/19 09:00 08/03/19 10:29 07/18/19 08:34 Lactulose (Cephulac) 20 gm THREE TIMES A DAY ORAL 07/11/19 09:00 08/04/19 12:59 07/18/19 08:34 Pantoprazole (Protonix) 40 mg Q12HR IVP 07/17/19 21:00 08/16/19 20:59 07/18/19 08:34 Potassium Chloride (K-Dur) 40 meq DAILY ORAL 07/16/19 09:00 08/15/19 08:59 07/18/19 08:34 Rifaximin (Xifaxan) 550 mg EVERY 12 HOURS ORAL 07/14/19 21:00 07/21/19 20:59 07/18/19 08:34 Thiamine HCl (Vitamin B1) 100 mg DAILY ORAL 07/11/19 09:00 08/03/19 10:29 07/18/19 08:34 Last 24 Hour Vital Signs Date Time Temp Pulse Resp B/P (MAP) Pulse Ox O2 Delivery O2 Flow Rate FiO2 07/18/19 04:00 91 07/18/19 04:00 98.0 91 18 106/67 (80) 97 07/18/19 00:00 101 07/18/19 00:00 98.2 101 18 106/67 (80) 97 07/17/19 21:00 Room Air 07/17/19 20:00 98 07/17/19 20:00 98.2 101 18 106/67 (80) 97 07/17/19 20:00 101 07/17/19 16:00 92 07/17/19 16:00 97.8 89 20 110/64 (79) 95 07/17/19 12:00 93 07/17/19 12:00 97.6 94 20 119/68 (85) 98 07/17/19 09:00 Room Air 07/17/19 08:00 97.3 84 20 109/67 (81) 96 07/17/19 08:00 87 07/17/19 04:00 88 07/17/19 04:00 97.5 88 18 109/63 (78) 93 07/17/19 00:00 80 07/17/19 00:00 97.3 80 18 103/64 (77) 95 07/16/19 21:00 Room Air 07/16/19 20:00 97.4 81 19 141/65 (90) 96 07/16/19 20:00 81 07/16/19 16:00 96 07/16/19 16:00 97.2 83 18 103/60 (74) 96 07/16/19 12:00 97.2 86 20 112/73 (86) 97 07/16/19 12:00 84 Intake and Output 07/17/19 07/18/19 18:59 06:59 Intake Total 120 ml Balance 120 ml Intake Oral 120 ml # Voids 4 3 # Bowel Movements 9 1 Labs Test 07/15/19 11:10 07/16/19 05:30 07/17/19 06:32 07/18/19 05:48 Prothrombin Time 16.4 SEC (9.30-11.50) 16.2 SEC (9.30-11.50) Prothromb Time International Ratio 1.6 (0.9-1.1) 1.6 (0.9-1.1) Activated Partial Thromboplast Time 39 SEC (23-33) 41 SEC (23-33) Ammonia 49 umol/L (11-32) 52 umol/L (11-32) White Blood Count 8.3 K/UL (4.8-10.8) 9.9 K/UL (4.8-10.8) 8.4 K/UL (4.8-10.8) Red Blood Count 2.95 M/UL (4.70-6.10) 3.50 M/UL (4.70-6.10) 3.25 M/UL (4.70-6.10) Hemoglobin 8.1 G/DL (14.2-18.0) 9.7 G/DL (14.2-18.0) 8.9 G/DL (14.2-18.0) Hematocrit 27.7 % (42.0-52.0) 32.9 % (42.0-52.0) 30.1 % (42.0-52.0) Mean Corpuscular Volume 94 FL (80-99) 94 FL (80-99) 93 FL (80-99) Mean Corpuscular Hemoglobin 27.6 PG (27.0-31.0) 27.9 PG (27.0-31.0) 27.5 PG (27.0-31.0) Mean Corpuscular Hemoglobin Concent 29.4 G/DL (32.0-36.0) 29.7 G/DL (32.0-36.0) 29.6 G/DL (32.0-36.0) Red Cell Distribution Width 23.9 % (11.6-14.8) 23.4 % (11.6-14.8) 22.5 % (11.6-14.8) Platelet Count 117 K/UL (150-450) 110 K/UL (150-450) 122 K/UL (150-450) Mean Platelet Volume 8.8 FL (6.5-10.1) 7.0 FL (6.5-10.1) 7.7 FL (6.5-10.1) Neutrophils (%) (Auto) 64.7 % (45.0-75.0) 66.4 % (45.0-75.0) 62.5 % (45.0-75.0) Lymphocytes (%) (Auto) 20.3 % (20.0-45.0) 21.0 % (20.0-45.0) 22.2 % (20.0-45.0) Monocytes (%) (Auto) 11.2 % (1.0-10.0) 10.3 % (1.0-10.0) 12.0 % (1.0-10.0) Eosinophils (%) (Auto) 1.9 % (0.0-3.0) 1.0 % (0.0-3.0) 2.0 % (0.0-3.0) Basophils (%) (Auto) 2.0 % (0.0-2.0) 1.3 % (0.0-2.0) 1.3 % (0.0-2.0) Sodium Level 145 MMOL/L (136-145) 143 MMOL/L (136-145) 144 MMOL/L (136-145) Potassium Level 3.3 MMOL/L (3.5-5.1) 3.8 MMOL/L (3.5-5.1) 3.5 MMOL/L (3.5-5.1) Chloride Level 113 MMOL/L (98-107) 113 MMOL/L (98-107) 113 MMOL/L (98-107) Carbon Dioxide Level 21 MMOL/L (21-32) 22 MMOL/L (21-32) 24 MMOL/L (21-32) Anion Gap 11 mmol/L (5-15) 8 mmol/L (5-15) 7 mmol/L (5-15) Blood Urea Nitrogen 7 mg/dL (7-18) 7 mg/dL (7-18) 7 mg/dL (7-18) Creatinine 1.0 MG/DL (0.55-1.30) 1.1 MG/DL (0.55-1.30) 1.1 MG/DL (0.55-1.30) Estimat Glomerular Filtration Rate > 60 mL/min (>60) > 60 mL/min (>60) > 60 mL/min (>60) Glucose Level 85 MG/DL (74-106) 84 MG/DL (74-106) 72 MG/DL (74-106) Calcium Level 8.5 MG/DL (8.5-10.1) 8.7 MG/DL (8.5-10.1) 8.7 MG/DL (8.5-10.1) Phosphorus Level 3.0 MG/DL (2.5-4.9) 2.8 MG/DL (2.5-4.9) Magnesium Level 1.7 MG/DL (1.8-2.4) 1.2 MG/DL (1.8-2.4) Total Bilirubin 1.2 MG/DL (0.2-1.0) 1.3 MG/DL (0.2-1.0) 1.5 MG/DL (0.2-1.0) Direct Bilirubin 0.6 MG/DL (0.0-0.3) 0.6 MG/DL (0.0-0.3) 0.8 MG/DL (0.0-0.3) Aspartate Amino Transf (AST/SGOT) 70 U/L (15-37) 69 U/L (15-37) 71 U/L (15-37) Alanine Aminotransferase (ALT/SGPT) 16 U/L (12-78) 11 U/L (12-78) 9 U/L (12-78) Alkaline Phosphatase 99 U/L (46-116) 108 U/L (46-116) 112 U/L (46-116) Total Protein 7.1 G/DL (6.4-8.2) 7.3 G/DL (6.4-8.2) 7.3 G/DL (6.4-8.2) Albumin 1.0 G/DL (3.4-5.0) 1.0 G/DL (3.4-5.0) 1.0 G/DL (3.4-5.0) Globulin 6.1 g/dL 6.3 g/dL 6.3 g/dL Albumin/Globulin Ratio 0.2 (1.0-2.7) 0.2 (1.0-2.7) 0.2 (1.0-2.7) Height (Feet): 5 Height (Inches): 8.00 Weight (Pounds): 150 Objective Physical Exam: Vitals: reviewed General Appearance: NAD HEENT: normocephalic, atraumatic Neck: non-tender, normal alignment Respiratory/Chest: normal breath sounds bilaterally Cardiovascular/Chest: normal peripheral pulses, normal rate Abdomen: normal bowel sounds, soft, nontender +++ ascites Avery Guo MD Jul 18, 2019 09:04
--- NOTE | 2019-07-18 09:23 | General Progress Note ---
Assessment/Plan Status: stable, unchanged Assessment/Plan: 48-year-old male with past medical history of ETOH abuse presented found down. Overall improving s/p paracentesis 07/16/19 #Encephalopathy likely multifactorial including hepatic encephalopathy ( elevated ammonia), as well as sepsis with bacteremia due to MSSA. #Sepsis secondary to bacteremia due to MSSA -s/p vancomycin and Zosyn (07/06), now cefazolin per ID recs. Day 11 of 14. Will switch to Keflex for 2 weeks once 14 days of Ancef over -Repeat blood cultures are negative -Infectious disease consult, appreciate recs #Hypernatremia- resolved D5W @ 75 ml/rh, encourage PO intake # Lice - primerin treatment - Ordered to clip hair as persistent lice noted despite 2 shampoo treatment #Liver cirrhosis secondary to EtOH # ETOH withdrawal. Libirum being used. - DF 31 -MELD 15 on admission -Abdominal ultrasound reviewed -Status post paracentesis 07/05/2019 with removal of 8 L. -Albumin for BP support as needed -Supportive care - lactulose [place] - Repeat paracentesis 07/16. Recheck INR, VIT K and ffp as needed #Anemia, likely might multifactorial including acute blood loss anemia, anemia of chronic disease -Hematology consult, appreciate recs -Iron panel: Reviewed -Low folate: Replace -B12 within normal limits above 800 -GI consult, appreciate recs. HOLD OFF NGT for now due to risk with possible esophageal varices. PENDING EGD per GI decision. Patient is gradually waking up and eating is still a problem. MONITOR closely as he is now 9 days into the Hospital stay. #Thrombocytopenia -due to cirrhosis- stable #Substance abuse -Nodular liver in ultrasound suggestive of cirrhosis -Check hepatitis and HIV: hiv neg, hepatitis panel negative -Social work Consult - Psyche consult, appreciate recs #Hypokalemia Replace as needed, will replace today # Hypomagnesemia Replace today # Hypocalcemia - replace as needed #Dysphagia -Etiology due to agitation, likely due underlying hepatic encephalopathy vs side effect of Ativan #full code # Disposition SW and CM follow up needed. Homeless. The time of my note may not reflect the time of my patient encounter. I spent 40 minutes on this encounter, greater than 50 percent in counseling and care coordination Subjective Date patient seen: Jul 18, 2019 ROS Limited/Unobtainable: Yes Allergies: Coded Allergies: No Known Allergies (Unverified , 07/03/19) Subjective seen and examined awake agitated trying to get out of bed oriented to self only Had to order restraints Ancef for mssa bacteremia Objective Last 24 Hour Vital Signs Date Time Temp Pulse Resp B/P (MAP) Pulse Ox O2 Delivery O2 Flow Rate FiO2 07/18/19 04:00 91 07/18/19 04:00 98.0 91 18 106/67 (80) 97 07/18/19 00:00 101 07/18/19 00:00 98.2 101 18 106/67 (80) 97 07/17/19 21:00 Room Air 07/17/19 20:00 98 07/17/19 20:00 98.2 101 18 106/67 (80) 97 07/17/19 20:00 101 07/17/19 16:00 92 07/17/19 16:00 97.8 89 20 110/64 (79) 95 07/17/19 12:00 93 07/17/19 12:00 97.6 94 20 119/68 (85) 98 Intake and Output 07/17/19 07/18/19 18:59 06:59 Intake Total 120 ml Balance 120 ml Intake Oral 120 ml # Voids 4 3 # Bowel Movements 9 1 Laboratory Tests 07/18/19 05:48: White Blood Count 8.4, Red Blood Count 3.25L, Hemoglobin 8.9L, Hematocrit 30.1L , Mean Corpuscular Volume 93, Mean Corpuscular Hemoglobin 27.5, Mean Corpuscular Hemoglobin Concent 29.6L, Red Cell Distribution Width 22.5H, Platelet Count 122L, Mean Platelet Volume 7.7, Neutrophils (%) (Auto) 62.5, Lymphocytes (%) (Auto) 22.2, Monocytes (%) (Auto) 12.0H, Eosinophils (%) (Auto) 2.0, Basophils (%) (Auto) 1.3, Sodium Level 144, Potassium Level 3.5, Chloride Level 113H, Carbon Dioxide Level 24, Anion Gap 7, Blood Urea Nitrogen 7, Creatinine 1.1, Estimat Glomerular Filtration Rate > 60, Glucose Level 72L, Calcium Level 8.7, Phosphorus Level 2.8, Magnesium Level 1.2L, Total Bilirubin 1.5H, Direct Bilirubin 0.8H, Aspartate Amino Transf (AST/SGOT) 71H, Alanine Aminotransferase (ALT/SGPT) 9L, Alkaline Phosphatase 112, Total Protein 7.3, Albumin 1.0L, Globulin 6.3, Albumin/Globulin Ratio 0.2L 07/18/19 08:48: Alpha Fetoprotein [Pending] Height (Feet): 5 Height (Inches): 8.00 Weight (Pounds): 150 Objective General Appearance: moderate agitation EENT: PERRL/EOMI, normal ENT inspection Cardiovascular: normal rate Respiratory/Chest: lungs clear Abdomen: distended, hepatomegaly Edema: trace edema Neurologic: structural iron erector II-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 Jul 18, 2019 09:23
--- NOTE | 2019-07-18 09:56 | NUR ---
CASE MANAGEMENT: REVIEW 07/18/2019 SI:ETHANOL INTOXICATION. ANEMIA. ABD DISTENTION. T 97.6 HR 100 B/P 96/62 SATS 97% ON RA CL 113 GLU 72 MG 1.2 TBILI 1.5 DBILI 0.8 AST 71 ALT 9 IS: IVF @ 100 mL/HR PROTONIX IV Q12H FOLATE PO QD THIAMINE PO QD AZITHROMYCIN PO QD CEFAZOLIN IV Q8H TELE
--- NOTE | 2019-07-18 10:05 | NUR ---
RADIOLOGY DEPT., CHEST X-RAY DONE. Lilly SHABAZZ
--- NOTE | 2019-07-18 11:03 | Diagnostic Imaging Report ---
Indication: Shortness of breath Technique: One view of the chest Comparison: 07/12/2019 Findings: Inspiration is suboptimal. Lungs and pleural spaces are clear. Heart size is normal. Previously demonstrated atelectatic changes are no longer evident. There is an old healed right clavicular fracture deformity noted Impression: No acute process
--- NOTE | 2019-07-18 11:05 | General Progress Note ---
Assessment/Plan Problem List: (1) Anemia ICD Codes: D64.9 - Anemia, unspecified SNOMED: 605954753 Qualifiers: Qualified Codes: D64.9 - Anemia, unspecified (2) Acute alcoholic intoxication ICD Codes: F10.929 - Alcohol use, unspecified with intoxication, unspecified SNOMED: 27111617, 7572815 Qualifiers: Qualified Codes: F10.929 - Alcohol use, unspecified with intoxication, unspecified (3) Cirrhosis ICD Codes: K74.60 - Unspecified cirrhosis of liver SNOMED: 96123373 (4) Ascites ICD Codes: R18.8 - Other ascites SNOMED: 198021020 Status: stable, unchanged Assessment/Plan: (1) Ascites ICD Codes: R18.8 - Other ascites SNOMED: 043940841 (2) Cirrhosis ICD Codes: K74.60 - Unspecified cirrhosis of liver SNOMED: 71100582 (3) Abdominal distension ICD Codes: R14.0 - Abdominal distension (gaseous) SNOMED: 41873512 (4) Acute alcoholic intoxication ICD Codes: F10.929 - Alcohol use, unspecified with intoxication, unspecified SNOMED: 33061152, 1853295 Qualifiers: Qualified Codes: F10.929 - Alcohol use, unspecified with intoxication, unspecified (5) Anemia ICD Codes: D64.9 - Anemia, unspecified SNOMED: 907167996 Qualifiers: Qualified Codes: D64.9 - Anemia, unspecified Status: unchanged Status Narrative Discussed with Dr. Guzman. Assessment/Plan Assessment (1) Anemia (2) Acute alcoholic intoxication (3) Cirrhosis (4) Ascites (5) Encephalopathy / delirium (6) abnormal lytes tolerating diet no obvious GIB per nurses Recommendations prn paracentesis protonix eating better , continue to push PO on librium now Subjective ROS Limited/Unobtainable: Yes Allergies: Coded Allergies: No Known Allergies (Unverified , 07/03/19) Objective Last 24 Hour Vital Signs Date Time Temp Pulse Resp B/P (MAP) Pulse Ox O2 Delivery O2 Flow Rate FiO2 07/18/19 09:00 Room Air 07/18/19 08:00 97.6 100 18 96/62 (73) 97 07/18/19 04:00 91 07/18/19 04:00 98.0 91 18 106/67 (80) 97 07/18/19 00:00 101 07/18/19 00:00 98.2 101 18 106/67 (80) 97 07/17/19 21:00 Room Air 07/17/19 20:00 98 07/17/19 20:00 98.2 101 18 106/67 (80) 97 07/17/19 20:00 101 07/17/19 16:00 92 07/17/19 16:00 97.8 89 20 110/64 (79) 95 07/17/19 12:00 93 07/17/19 12:00 97.6 94 20 119/68 (85) 98 Intake and Output 07/17/19 07/18/19 18:59 06:59 Intake Total 120 ml Balance 120 ml Intake Oral 120 ml # Voids 4 3 # Bowel Movements 9 1 Laboratory Tests 07/18/19 05:48: White Blood Count 8.4, Red Blood Count 3.25L, Hemoglobin 8.9L, Hematocrit 30.1L , Mean Corpuscular Volume 93, Mean Corpuscular Hemoglobin 27.5, Mean Corpuscular Hemoglobin Concent 29.6L, Red Cell Distribution Width 22.5H, Platelet Count 122L, Mean Platelet Volume 7.7, Neutrophils (%) (Auto) 62.5, Lymphocytes (%) (Auto) 22.2, Monocytes (%) (Auto) 12.0H, Eosinophils (%) (Auto) 2.0, Basophils (%) (Auto) 1.3, Sodium Level 144, Potassium Level 3.5, Chloride Level 113H, Carbon Dioxide Level 24, Anion Gap 7, Blood Urea Nitrogen 7, Creatinine 1.1, Estimat Glomerular Filtration Rate > 60, Glucose Level 72L, Calcium Level 8.7, Phosphorus Level 2.8, Magnesium Level 1.2L, Total Bilirubin 1.5H, Direct Bilirubin 0.8H, Aspartate Amino Transf (AST/SGOT) 71H, Alanine Aminotransferase (ALT/SGPT) 9L, Alkaline Phosphatase 112, Total Protein 7.3, Albumin 1.0L, Globulin 6.3, Albumin/Globulin Ratio 0.2L 07/18/19 08:48: Alpha Fetoprotein [Pending] Height (Feet): 5 Height (Inches): 8.00 Weight (Pounds): 150 General Appearance: alert EENT: normal ENT inspection Neck: supple Cardiovascular: normal rate Respiratory/Chest: decreased breath sounds Abdomen: normal bowel sounds, non tender, soft Extremities: non-tender Robert Guzman MD Jul 18, 2019 11:05
[2019-07-18 12:00] VITALS: BP 98/65
--- NOTE | 2019-07-18 15:43 | Surgery Progress Note ---
Surgery Progress Note Subjective Additional Comments labs stable exam unchanged ammonia improved Objective Last 24 Hour Vital Signs Date Time Temp Pulse Resp B/P (MAP) Pulse Ox O2 Delivery O2 Flow Rate FiO2 07/18/19 12:00 97.7 95 20 98/65 (76) 96 07/18/19 09:00 Room Air 07/18/19 08:00 97.6 100 18 96/62 (73) 97 07/18/19 04:00 91 07/18/19 04:00 98.0 91 18 106/67 (80) 97 07/18/19 00:00 101 07/18/19 00:00 98.2 101 18 106/67 (80) 97 07/17/19 21:00 Room Air 07/17/19 20:00 98 07/17/19 20:00 98.2 101 18 106/67 (80) 97 07/17/19 20:00 101 07/17/19 16:00 92 07/17/19 16:00 97.8 89 20 110/64 (79) 95 I&O Intake and Output 07/17/19 07/18/19 19:00 07:00 Intake Total 120 ml Balance 120 ml Intake Oral 120 ml # Voids 4 3 # Bowel Movements 9 1 Cardiovascular: RSR Respiratory: clear Abdomen: soft, distended, non-tender, present bowel sounds Extremities: no tenderness, no cyanosis Laboratory Tests Test 07/18/19 05:48 07/18/19 08:48 White Blood Count 8.4 K/UL (4.8-10.8) Red Blood Count 3.25 M/UL (4.70-6.10) L Hemoglobin 8.9 G/DL (14.2-18.0) L Hematocrit 30.1 % (42.0-52.0) L Mean Corpuscular Volume 93 FL (80-99) Mean Corpuscular Hemoglobin 27.5 PG (27.0-31.0) Mean Corpuscular Hemoglobin Concent 29.6 G/DL (32.0-36.0) L Red Cell Distribution Width 22.5 % (11.6-14.8) H Platelet Count 122 K/UL (150-450) L Mean Platelet Volume 7.7 FL (6.5-10.1) Neutrophils (%) (Auto) 62.5 % (45.0-75.0) Lymphocytes (%) (Auto) 22.2 % (20.0-45.0) Monocytes (%) (Auto) 12.0 % (1.0-10.0) H Eosinophils (%) (Auto) 2.0 % (0.0-3.0) Basophils (%) (Auto) 1.3 % (0.0-2.0) Sodium Level 144 MMOL/L (136-145) Potassium Level 3.5 MMOL/L (3.5-5.1) Chloride Level 113 MMOL/L (98-107) H Carbon Dioxide Level 24 MMOL/L (21-32) Anion Gap 7 mmol/L (5-15) Blood Urea Nitrogen 7 mg/dL (7-18) Creatinine 1.1 MG/DL (0.55-1.30) Estimat Glomerular Filtration Rate > 60 mL/min (>60) Glucose Level 72 MG/DL (74-106) L Calcium Level 8.7 MG/DL (8.5-10.1) Phosphorus Level 2.8 MG/DL (2.5-4.9) Magnesium Level 1.2 MG/DL (1.8-2.4) L Total Bilirubin 1.5 MG/DL (0.2-1.0) H Direct Bilirubin 0.8 MG/DL (0.0-0.3) H Aspartate Amino Transf (AST/SGOT) 71 U/L (15-37) H Alanine Aminotransferase (ALT/SGPT) 9 U/L (12-78) L Alkaline Phosphatase 112 U/L (46-116) Total Protein 7.3 G/DL (6.4-8.2) Albumin 1.0 G/DL (3.4-5.0) L Globulin 6.3 g/dL Albumin/Globulin Ratio 0.2 (1.0-2.7) L Alpha Fetoprotein Pending Plan Problems: (1) Abdominal distension Assessment & Plan: Abdominal distention from ascites as he has significant liver dysfunction para with 8L fluid without malignant cells micro with bacteremia labs stable and improving . exam stable still not waking up and encephalopathic Findings: There is ascites fluid present. Gallbladder is unremarkable, without stones, wall thickening, nor pericholecystic fluid. Sonographic [place]'s sign is negative. Common bile duct measures 3 mm in diameter. No intrahepatic biliary ductal dilatation. Liver demonstrates slightly increased echogenicity. No focal abnormality. It demonstrates surface nodularity. Portal vein and hepatic veins are patent. Pancreas is obscured by bowel gas. Spleen is unremarkable. Left kidney measures 11.4 cm in length. Right kidney measures 11.1 cm length. Both kidneys demonstrate normal echogenicity. There is no hydronephrosis. No focal abnormality . Abdominal aorta is partially obscured by bowel gas, visualized portions are non-aneurysmal . Impression: Hepatic surface nodularity, suggestive of cirrhosis. Ascites Negative for gallstones or dilated bile ducts (2) Facial trauma Assessment & Plan: Findings: No acute intracranial hemorrhage or edema. No mass effect or midline shift. Normal hardy-white differentiation. Slightly prominent for age ventricles and extra axial CSF spaces. Mild periventricular deep white matter low-attenuation consistent with chronic microvascular ischemic changes noted Questionable minimal left supraorbital scalp contusion. Intact calvarium. Visualized orbits and sinuses are unremarkable. The mastoids are clear. unknown if fall or assault lip with dry blood and in medial aspect small oozing - resolved apply dressing prn thank you Alvin James Jul 18, 2019 15:43
[2019-07-18 16:00] VITALS: BP 131/56
--- NOTE | 2019-07-18 19:31 | NUR ---
HAND-OFF: Report given to JOSEFINA Bowman. Plan of care endorsed
--- NOTE | 2019-07-18 19:35 | NUR ---
NURSE NOTES: Received report from JOSEFINA Mckeon. Pt is awake and resting in bed. In no acute distress. IV line intact and patent. Pt on surveillance system monitor. Bed in lowest position, call light within reach. Will continue plan of care.
[2019-07-18 20:00] VITALS: BP 105/63
[2019-07-19] VITALS: BP 120/56
[2019-07-19] MEDS: ceFAZolin sod 2 GM in NS 55 ML IVP SCH ×2 (01:28→09:23)
[2019-07-19 04:00] VITALS: BP 104/67
--- NOTE | 2019-07-19 07:20 | NUR ---
NURSE NOTES: Received report from JOSEFINA Bowman. Pt is awake and resting in bed. Patient is breathing on room air and breathing even and unlabored. IV line intact and patent. Pt on automatic stacker. Bed in lowest position, call light within reach. Will continue plan of care.
[2019-07-19 07:21] LABS: ALANINE AMINOTRANSFERASE 7 U/L (12-78); ALBUMIN 0.9 G/DL (3.4-5.0); ALBUMIN/GLOBULIN RATIO 0.1 (1.0-2.7); ALKALINE PHOSPHATASE 109 U/L (46-116); ANION GAP 8 mmol/L (5-15); ASPARTATE AMINO TRANSFERASE 66 U/L (15-37); BILIRUBIN,TOTAL 1.4 MG/DL (0.2-1.0); BLOOD UREA NITROGEN 7 mg/dL (7-18); CALCIUM 8.5 MG/DL (8.5-10.1); CARBON DIOXIDE 22 MMOL/L (21-32); CHLORIDE 111 MMOL/L (98-107); CREATININE 1.1 MG/DL (0.55-1.30); POTASSIUM 3.6 MMOL/L (3.5-5.1); SODIUM 141 MMOL/L (136-145)
[2019-07-19 07:26] LABS: BILIRUBIN,DIRECT 0.7 MG/DL (0.0-0.3)
--- NOTE | 2019-07-19 07:29 | NUR ---
HAND-OFF: Report given to JOSEFINA Lopez.
[2019-07-19 08:00] VITALS: BP 101/60
--- NOTE | 2019-07-19 08:30 | NUR ---
NURSE NOTES: Dr. Aguilar saw patient. Patient to be transferred to med/surg.
--- NOTE | 2019-07-19 09:06 | Hematology/Onc Progress Note ---
Assessment/Plan Assessment/Plan ASSESSMENT AND RECS # Anemia of iron deficiency in addition to suppression from etoh abuse and cirrhosis of liver --> Anemia workup has been ordered, rule out gi bleed --> aid noted --> No evidence of hemolysis is noted, peripheral smear has been reviewed. --> Hgb goal >7. Transfuse prn. --> Hgb trend: 4.2-->7.1-->7.6 --> 7.6-->7.7-->8.9-->9.1-->8.9-->8.5->8.8-->8.9 --> IRON IV 200mg ordered x 1dose --> Medications have been reviewed --> stool ob negative --> bone marrow biopsy is not indicated given the other more likely causes # Thrombocytopenia - secondary to liver cirrhosis --> Hep panel and HIV ordered - both negative --> US abd to evaluate for cirrhosis and hsm ordered - Hepatic surface nodularity, suggestive of cirrhosis. Ascites --> Peripheral smear ordered to evaluate for blasts /schistocytes and none significant noted --> abx and other meds have been reviewed --> ok for ppx if plt >50k w/ either heparin or lovenox --> Transfuse if Plt < 20k and fever, or if Plt < 10k without fever --> plt trend 90-->92k-->82-->92k-->85k-->104k-->122k # Coagulopathy due to liver cirrhosis secondary to Etoh --> GI is following, appreciate recs --> Abdominal ultrasound reviewed --> Supportive care --> lactulose prophylactic --> vit K on prn basis 07/15 # Substance abuse --> psych eval # Hypokalemia --> Replace, continue to monitor # Hypocalcemia --> replete Ca++ prn # Cirrhosis of the liver --> appears chronic The timing of this note does not necessarily reflect the time of the patient was seen. GREATLY APPRECIATE CONSULTATION. Subjective Allergies: Coded Allergies: No Known Allergies (Unverified , 07/03/19) Subjective 07/05: no fevers, chills or night sweats noted, on iv iron has been started, on benzo 07/07: extremely agitated overnight, climbin out of bed, on cristina taper, h/h low 07/08: remains on abx, no f/c, no bleeding is noted, no changes 07/09: paracentesis negative for malignant cells, cxr and labs reviewed 07/10: no acute distress, still drowsy, has been attempting to get out of bed 07/11: transferred [facility] to [facility], stool ob negative, h/h stable 07/12: imaging reviewed, on abx, us paracentesis, no distress 07/13: remains on librium, plt 85, hgb 8.5, no f/c, no night sweats 07/15: no bleeding, pt/ptt elevated, given vit K, no f/c, no chills noted 07/16: for repeat paracentesis, no f/c, no bleeding 07/17: us paracentesis, vs stable, no f/c, denies any pain, on abx, med reviewed 07/18: remains on ancef for now 14d as per id, no bleeding reported, no f/c 07/19: on abx, no f/c, vs stable, no sob, no acute distress, imaging reviewed Objective Objective Current Medications Medications (Trade) Dose Ordered Sig/Tanja Route PRN Reason Start Time Stop Time Status Last Admin Dose Admin Azithromycin (Zithromax) 500 mg DAILY ORAL 07/15/19 09:00 07/22/19 08:59 07/18/19 08:34 Cefazolin Sodium 2 gm/Sodium Chloride 55 ml @ 110 mls/hr Q8H IVP 07/13/19 17:00 07/20/19 16:59 07/19/19 01:28 Dextrose 1,000 ml @ 100 mls/hr Q10H IV 07/14/19 16:45 08/13/19 16:44 07/19/19 00:18 Folic Acid (Folate) 1 mg DAILY ORAL 07/11/19 09:00 08/03/19 10:29 07/18/19 08:34 Lactulose (Cephulac) 20 gm THREE TIMES A DAY ORAL 07/11/19 09:00 08/04/19 12:59 07/18/19 08:34 Pantoprazole (Protonix) 40 mg Q12HR IVP 07/17/19 21:00 08/16/19 20:59 07/18/19 21:36 Potassium Chloride (K-Dur) 40 meq DAILY ORAL 07/16/19 09:00 08/15/19 08:59 07/18/19 08:34 Rifaximin (Xifaxan) 550 mg EVERY 12 HOURS ORAL 07/14/19 21:00 07/21/19 20:59 07/18/19 21:36 Thiamine HCl (Vitamin B1) 100 mg DAILY ORAL 07/11/19 09:00 08/03/19 10:29 07/18/19 08:34 Last 24 Hour Vital Signs Date Time Temp Pulse Resp B/P (MAP) Pulse Ox O2 Delivery O2 Flow Rate FiO2 07/19/19 04:00 97.7 92 18 104/67 (79) 95 07/19/19 04:00 92 07/19/19 00:00 98.2 86 18 120/56 (77) 95 07/19/19 00:00 86 07/18/19 21:00 Room Air 07/18/19 20:00 97.4 91 20 105/63 (77) 95 07/18/19 20:00 91 07/18/19 16:00 97.4 86 18 131/56 (81) 95 07/18/19 16:00 83 07/18/19 12:00 95 07/18/19 12:00 97.7 95 20 98/65 (76) 96 07/18/19 09:00 Room Air 07/18/19 08:00 97.6 100 18 96/62 (73) 97 07/18/19 08:00 102 07/18/19 04:00 91 07/18/19 04:00 98.0 91 18 106/67 (80) 97 07/18/19 00:00 101 07/18/19 00:00 98.2 101 18 106/67 (80) 97 07/17/19 21:00 Room Air 07/17/19 20:00 98 07/17/19 20:00 98.2 101 18 106/67 (80) 97 07/17/19 20:00 101 07/17/19 16:00 92 07/17/19 16:00 97.8 89 20 110/64 (79) 95 07/17/19 12:00 93 07/17/19 12:00 97.6 94 20 119/68 (85) 98 Intake and Output 07/18/19 07/19/19 18:59 06:59 Intake Total 120 ml 1080 ml Balance 120 ml 1080 ml Intake Oral 120 ml IV Total 1080 ml # Voids 1 4 # Bowel Movements 1 Labs Test 07/17/19 06:32 07/18/19 05:48 07/18/19 08:48 07/19/19 05:55 White Blood Count 9.9 K/UL (4.8-10.8) 8.4 K/UL (4.8-10.8) Red Blood Count 3.50 M/UL (4.70-6.10) 3.25 M/UL (4.70-6.10) Hemoglobin 9.7 G/DL (14.2-18.0) 8.9 G/DL (14.2-18.0) Hematocrit 32.9 % (42.0-52.0) 30.1 % (42.0-52.0) Mean Corpuscular Volume 94 FL (80-99) 93 FL (80-99) Mean Corpuscular Hemoglobin 27.9 PG (27.0-31.0) 27.5 PG (27.0-31.0) Mean Corpuscular Hemoglobin Concent 29.7 G/DL (32.0-36.0) 29.6 G/DL (32.0-36.0) Red Cell Distribution Width 23.4 % (11.6-14.8) 22.5 % (11.6-14.8) Platelet Count 110 K/UL (150-450) 122 K/UL (150-450) Mean Platelet Volume 7.0 FL (6.5-10.1) 7.7 FL (6.5-10.1) Neutrophils (%) (Auto) 66.4 % (45.0-75.0) 62.5 % (45.0-75.0) Lymphocytes (%) (Auto) 21.0 % (20.0-45.0) 22.2 % (20.0-45.0) Monocytes (%) (Auto) 10.3 % (1.0-10.0) 12.0 % (1.0-10.0) Eosinophils (%) (Auto) 1.0 % (0.0-3.0) 2.0 % (0.0-3.0) Basophils (%) (Auto) 1.3 % (0.0-2.0) 1.3 % (0.0-2.0) Sodium Level 143 MMOL/L (136-145) 144 MMOL/L (136-145) 141 MMOL/L (136-145) Potassium Level 3.8 MMOL/L (3.5-5.1) 3.5 MMOL/L (3.5-5.1) 3.6 MMOL/L (3.5-5.1) Chloride Level 113 MMOL/L (98-107) 113 MMOL/L (98-107) 111 MMOL/L (98-107) Carbon Dioxide Level 22 MMOL/L (21-32) 24 MMOL/L (21-32) 22 MMOL/L (21-32) Anion Gap 8 mmol/L (5-15) 7 mmol/L (5-15) 8 mmol/L (5-15) Blood Urea Nitrogen 7 mg/dL (7-18) 7 mg/dL (7-18) 7 mg/dL (7-18) Creatinine 1.1 MG/DL (0.55-1.30) 1.1 MG/DL (0.55-1.30) 1.1 MG/DL (0.55-1.30) Estimat Glomerular Filtration Rate > 60 mL/min (>60) > 60 mL/min (>60) > 60 mL/min (>60) Glucose Level 84 MG/DL (74-106) 72 MG/DL (74-106) 93 MG/DL (74-106) Calcium Level 8.7 MG/DL (8.5-10.1) 8.7 MG/DL (8.5-10.1) 8.5 MG/DL (8.5-10.1) Total Bilirubin 1.3 MG/DL (0.2-1.0) 1.5 MG/DL (0.2-1.0) 1.4 MG/DL (0.2-1.0) Direct Bilirubin 0.6 MG/DL (0.0-0.3) 0.8 MG/DL (0.0-0.3) 0.7 MG/DL (0.0-0.3) Aspartate Amino Transf (AST/SGOT) 69 U/L (15-37) 71 U/L (15-37) 66 U/L (15-37) Alanine Aminotransferase (ALT/SGPT) 11 U/L (12-78) 9 U/L (12-78) 7 U/L (12-78) Alkaline Phosphatase 108 U/L (46-116) 112 U/L (46-116) 109 U/L (46-116) Total Protein 7.3 G/DL (6.4-8.2) 7.3 G/DL (6.4-8.2) 6.9 G/DL (6.4-8.2) Albumin 1.0 G/DL (3.4-5.0) 1.0 G/DL (3.4-5.0) 0.9 G/DL (3.4-5.0) Globulin 6.3 g/dL 6.3 g/dL 6.0 g/dL Albumin/Globulin Ratio 0.2 (1.0-2.7) 0.2 (1.0-2.7) 0.1 (1.0-2.7) Phosphorus Level 2.8 MG/DL (2.5-4.9) Magnesium Level 1.2 MG/DL (1.8-2.4) 1.5 MG/DL (1.8-2.4) Alpha Fetoprotein 3.4 ng/mL (0.0-8.3) Height (Feet): 5 Height (Inches): 8.00 Weight (Pounds): 150 Objective Physical Exam: Vitals: reviewed General Appearance: NAD HEENT: normocephalic, atraumatic Neck: non-tender, normal alignment Respiratory/Chest: normal breath sounds bilaterally Cardiovascular/Chest: normal peripheral pulses, normal rate Abdomen: normal bowel sounds, soft, nontender +++ ascites Avery Guo MD Jul 19, 2019 09:06
[2019-07-19] MEDS: Azithromycin 250mg tab ORAL SCH (09:22)
[2019-07-19] MEDS: Pantoprazole Inj IVP SCH (09:22)
[2019-07-19] MEDS: Thiamine 100mg tab ORAL SCH (09:22)
[2019-07-19] MEDS: Lactulose 20gm/30ml UDC ORAL SCH ×3 (09:23→17:02)
[2019-07-19 12:00] VITALS: BP 100/43
--- NOTE | 2019-07-19 12:04 | NUR ---
RD ASSESSMENT & RECOMMENDATIONS SEE CARE ACTIVITY FOR COMPLETE ASSESSMENT DAILY ESTIMATED NEEDS: Needs based on Cirrhosis/ 60kg abw 25-30 kcals/kg 4741-1702 total kcals 1-1.5 g protein/kg 60-90 g total protein 25-30 mL/kg 1862-4925 total fluid mLs NUTRITION DIAGNOSIS: * Altered nutrition related lab values R/T cirrhosis, h/o ETOH abuse, clinical condition as evidenced by elev AST and T bili (1.4), elev NH3 (52), low K (3.0-> wnl), low mag (1.7-> wnl), low folate (5.1) * Swallowing difficulty R/T dysphagia, confusion, encephalopathy as evidenced by pt on pureed moist texture w/ NTL, w/ poor and variable PO intake. CURRENT DIET:Cardiac puree moist w/ NTL + ensure TID PO DIET RECOMMENDATIONS: Liberalize diet to LOW NA/ texture per ASSOCIATE PROGRAMMER ANALYST ADDITIONAL RECOMMENDATIONS: * Calibrated bedscale wt for accurate CBW * ASSOCIATE PROGRAMMER ANALYST re-eval for possible texture upgrade * Maintain Ensure Enlive TID w/ meals * Monitor BG for hypoglycemia/ rec pm snack * Add MVI x 1 * Monitor lytes daily, replete as needed * Rec appetite stimulant
--- NOTE | 2019-07-19 12:23 | General Progress Note ---
Assessment/Plan Problem List: (1) Anemia ICD Codes: D64.9 - Anemia, unspecified SNOMED: 135806467 Qualifiers: Qualified Codes: D64.9 - Anemia, unspecified (2) Acute alcoholic intoxication ICD Codes: F10.929 - Alcohol use, unspecified with intoxication, unspecified SNOMED: 82162267, 5928117 Qualifiers: Qualified Codes: F10.929 - Alcohol use, unspecified with intoxication, unspecified (3) Cirrhosis ICD Codes: K74.60 - Unspecified cirrhosis of liver SNOMED: 37283278 (4) Ascites ICD Codes: R18.8 - Other ascites SNOMED: 322418424 Status: stable, unchanged Assessment/Plan: (1) Ascites ICD Codes: R18.8 - Other ascites SNOMED: 782973547 (2) Cirrhosis ICD Codes: K74.60 - Unspecified cirrhosis of liver SNOMED: 14532523 (3) Abdominal distension ICD Codes: R14.0 - Abdominal distension (gaseous) SNOMED: 78174671 (4) Acute alcoholic intoxication ICD Codes: F10.929 - Alcohol use, unspecified with intoxication, unspecified SNOMED: 96973074, 4425647 Qualifiers: Qualified Codes: F10.929 - Alcohol use, unspecified with intoxication, unspecified (5) Anemia ICD Codes: D64.9 - Anemia, unspecified SNOMED: 743890240 Qualifiers: Qualified Codes: D64.9 - Anemia, unspecified Status: unchanged Status Narrative Discussed with Dr. Guzman. Assessment/Plan Assessment (1) Anemia (2) Acute alcoholic intoxication (3) Cirrhosis (4) Ascites (5) Encephalopathy / delirium (6) abnormal lytes tolerating diet no obvious GIB per nurses Recommendations prn paracentesis protonix eating better , continue to push PO on librium now Subjective ROS Limited/Unobtainable: Yes Allergies: Coded Allergies: No Known Allergies (Unverified , 07/03/19) Objective Last 24 Hour Vital Signs Date Time Temp Pulse Resp B/P (MAP) Pulse Ox O2 Delivery O2 Flow Rate FiO2 07/19/19 08:00 97.5 89 20 101/60 (74) 95 07/19/19 04:00 97.7 92 18 104/67 (79) 95 07/19/19 04:00 92 07/19/19 00:00 98.2 86 18 120/56 (77) 95 07/19/19 00:00 86 07/18/19 21:00 Room Air 07/18/19 20:00 97.4 91 20 105/63 (77) 95 07/18/19 20:00 91 07/18/19 16:00 97.4 86 18 131/56 (81) 95 07/18/19 16:00 83 Intake and Output 07/18/19 07/19/19 18:59 06:59 Intake Total 120 ml 1080 ml Balance 120 ml 1080 ml Intake Oral 120 ml IV Total 1080 ml # Voids 1 4 # Bowel Movements 1 Laboratory Tests 07/19/19 05:55: Sodium Level 141, Potassium Level 3.6, Chloride Level 111H, Carbon Dioxide Level 22, Anion Gap 8, Blood Urea Nitrogen 7, Creatinine 1.1, Estimat Glomerular Filtration Rate > 60, Glucose Level 93, Calcium Level 8.5, Magnesium Level 1.5L, Total Bilirubin 1.4H, Direct Bilirubin 0.7H, Aspartate Amino Transf (AST/SGOT) 66H, Alanine Aminotransferase (ALT/SGPT) 7L, Alkaline Phosphatase 109 , Total Protein 6.9, Albumin 0.9L, Globulin 6.0, Albumin/Globulin Ratio 0.1L Height (Feet): 5 Height (Inches): 8.00 Weight (Pounds): 150 General Appearance: no apparent distress EENT: normal ENT inspection Neck: supple Cardiovascular: normal rate Respiratory/Chest: decreased breath sounds Abdomen: normal bowel sounds, non tender, soft Extremities: non-tender Robert Guzman MD Jul 19, 2019 12:23
--- NOTE | 2019-07-19 12:53 | NUR ---
ACCOUNT SERVICES COORDINATORCIGARETTE EXAMINER SI: ETHANOL INTOXICATION,ENCEPHALOPATHY T. 97.7 HR 92 RR 18 B/P 120/56 AST 66 IS: PROTONIX ZITHROMAX PO IVF D5 @ 100ML/HR CEFAZOLIN IV LACTULOSE PO TELEMETRY STATUS
--- NOTE | 2019-07-19 14:38 | Surgery Progress Note ---
Surgery Progress Note Subjective Additional Comments no acute events more awake and responsive today telling staff he wants tacos Objective Last 24 Hour Vital Signs Date Time Temp Pulse Resp B/P (MAP) Pulse Ox O2 Delivery O2 Flow Rate FiO2 07/19/19 12:00 97.7 61 20 100/43 (62) 95 07/19/19 09:00 Room Air 07/19/19 08:30 91 07/19/19 08:00 97.5 89 20 101/60 (74) 95 07/19/19 04:00 97.7 92 18 104/67 (79) 95 07/19/19 04:00 92 07/19/19 00:00 98.2 86 18 120/56 (77) 95 07/19/19 00:00 86 07/18/19 21:00 Room Air 07/18/19 20:00 97.4 91 20 105/63 (77) 95 07/18/19 20:00 91 07/18/19 16:00 97.4 86 18 131/56 (81) 95 07/18/19 16:00 83 I&O Intake and Output 07/18/19 07/19/19 18:59 06:59 Intake Total 120 ml 1080 ml Balance 120 ml 1080 ml Intake Oral 120 ml IV Total 1080 ml # Voids 1 4 # Bowel Movements 1 Cardiovascular: RSR Respiratory: clear Abdomen: soft, non-tender, present bowel sounds Extremities: no edema, no tenderness Laboratory Tests Test 07/19/19 05:55 Sodium Level 141 MMOL/L (136-145) Potassium Level 3.6 MMOL/L (3.5-5.1) Chloride Level 111 MMOL/L (98-107) H Carbon Dioxide Level 22 MMOL/L (21-32) Anion Gap 8 mmol/L (5-15) Blood Urea Nitrogen 7 mg/dL (7-18) Creatinine 1.1 MG/DL (0.55-1.30) Estimat Glomerular Filtration Rate > 60 mL/min (>60) Glucose Level 93 MG/DL (74-106) Calcium Level 8.5 MG/DL (8.5-10.1) Magnesium Level 1.5 MG/DL (1.8-2.4) L Total Bilirubin 1.4 MG/DL (0.2-1.0) H Direct Bilirubin 0.7 MG/DL (0.0-0.3) H Aspartate Amino Transf (AST/SGOT) 66 U/L (15-37) H Alanine Aminotransferase (ALT/SGPT) 7 U/L (12-78) L Alkaline Phosphatase 109 U/L (46-116) Total Protein 6.9 G/DL (6.4-8.2) Albumin 0.9 G/DL (3.4-5.0) L Globulin 6.0 g/dL Albumin/Globulin Ratio 0.1 (1.0-2.7) L Plan Problems: (1) Abdominal distension Assessment & Plan: Abdominal distention from ascites as he has significant liver dysfunction para with 8L fluid without malignant cells micro with bacteremia labs stable and improving . exam stable more awake and responsive Findings: There is ascites fluid present. Gallbladder is unremarkable, without stones, wall thickening, nor pericholecystic fluid. Sonographic Washington's sign is negative. Common bile duct measures 3 mm in diameter. No intrahepatic biliary ductal dilatation. Liver demonstrates slightly increased echogenicity. No focal abnormality. It demonstrates surface nodularity. Portal vein and hepatic veins are patent. Pancreas is obscured by bowel gas. Spleen is unremarkable. Left kidney measures 11.4 cm in length. Right kidney measures 11.1 cm length. Both kidneys demonstrate normal echogenicity. There is no hydronephrosis. No focal abnormality . Abdominal aorta is partially obscured by bowel gas, visualized portions are non-aneurysmal . Impression: Hepatic surface nodularity, suggestive of cirrhosis. Ascites Negative for gallstones or dilated bile ducts (2) Facial trauma Assessment & Plan: Findings: No acute intracranial hemorrhage or edema. No mass effect or midline shift. Normal hardy-white differentiation. Slightly prominent for age ventricles and extra axial CSF spaces. Mild periventricular deep white matter low-attenuation consistent with chronic microvascular ischemic changes noted Questionable minimal left supraorbital scalp contusion. Intact calvarium. Visualized orbits and sinuses are unremarkable. The mastoids are clear. unknown if fall or assault lip with dry blood and in medial aspect small oozing - resolved apply dressing prn thank you Alvin James Jul 19, 2019 14:38
--- NOTE | 2019-07-19 14:55 | General Progress Note ---
Assessment/Plan Status: stable, unchanged Assessment/Plan: 48-year-old male with past medical history of ETOH abuse presented found down. Overall improving s/p paracentesis 07/16/19 #Encephalopathy likely multifactorial including hepatic encephalopathy ( elevated ammonia), as well as sepsis with bacteremia due to MSSA. #Sepsis secondary to bacteremia due to MSSA -s/p vancomycin and Zosyn (07/06), now cefazolin per ID recs. Day 12 of 14. Will switch to Keflex for 2 weeks once 14 days of Ancef over -Repeat blood cultures are negative -Infectious disease consult, appreciate recs #Hypernatremia- resolved encourage PO intake # Lice - primerin treatment - Ordered to clip hair as persistent lice noted despite 2 shampoo treatment #Liver cirrhosis secondary to EtOH # ETOH withdrawal. Libirum being used. - DF 31 -MELD 15 on admission -Abdominal ultrasound reviewed -Status post paracentesis 07/05/2019 with removal of 8 L. -Albumin for BP support as needed -Supportive care - lactulose [place] - Repeat paracentesis 07/16. Recheck INR, VIT K and ffp as needed #Anemia, likely might multifactorial including acute blood loss anemia, anemia of chronic disease -Hematology consult, appreciate recs -Iron panel: Reviewed -Low folate: Replace -B12 within normal limits above 800 -GI consult, appreciate recs. HOLD OFF NGT for now due to risk with possible esophageal varices. PENDING EGD per GI decision. Patient is gradually waking up and eating is still a problem. MONITOR closely as he is now 9 days into the Hospital stay. #Thrombocytopenia -due to cirrhosis- stable #Substance abuse -Nodular liver in ultrasound suggestive of cirrhosis -Check hepatitis and HIV: hiv neg, hepatitis panel negative -Social work Consult - Psyche consult, appreciate recs #Hypokalemia Replace as needed, will replace today # Hypomagnesemia Replace today # Hypocalcemia - replace as needed #Dysphagia -Etiology due to agitation, likely due underlying hepatic encephalopathy vs side effect of Ativan #full code # Disposition SW and CM follow up needed. Homeless. The time of my note may not reflect the time of my patient encounter. I spent 40 minutes on this encounter, greater than 50 percent in counseling and care coordination Subjective ROS Limited/Unobtainable: Yes Allergies: Coded Allergies: No Known Allergies (Unverified , 07/03/19) Subjective seen and examined awake calm day 12 of 14 [facility] bacteremia Objective Last 24 Hour Vital Signs Date Time Temp Pulse Resp B/P (MAP) Pulse Ox O2 Delivery O2 Flow Rate FiO2 07/19/19 12:00 97.7 61 20 100/43 (62) 95 07/19/19 09:00 Room Air 07/19/19 08:30 91 07/19/19 08:00 97.5 89 20 101/60 (74) 95 07/19/19 04:00 97.7 92 18 104/67 (79) 95 07/19/19 04:00 92 07/19/19 00:00 98.2 86 18 120/56 (77) 95 07/19/19 00:00 86 07/18/19 21:00 Room Air 07/18/19 20:00 97.4 91 20 105/63 (77) 95 07/18/19 20:00 91 07/18/19 16:00 97.4 86 18 131/56 (81) 95 07/18/19 16:00 83 Intake and Output 07/18/19 07/19/19 18:59 06:59 Intake Total 120 ml 1080 ml Balance 120 ml 1080 ml Intake Oral 120 ml IV Total 1080 ml # Voids 1 4 # Bowel Movements 1 Laboratory Tests 07/19/19 05:55: Sodium Level 141, Potassium Level 3.6, Chloride Level 111H, Carbon Dioxide Level 22, Anion Gap 8, Blood Urea Nitrogen 7, Creatinine 1.1, Estimat Glomerular Filtration Rate > 60, Glucose Level 93, Calcium Level 8.5, Magnesium Level 1.5L, Total Bilirubin 1.4H, Direct Bilirubin 0.7H, Aspartate Amino Transf (AST/SGOT) 66H, Alanine Aminotransferase (ALT/SGPT) 7L, Alkaline Phosphatase 109 , Total Protein 6.9, Albumin 0.9L, Globulin 6.0, Albumin/Globulin Ratio 0.1L Height (Feet): 5 Height (Inches): 8.00 Weight (Pounds): 150 Objective General Appearance: moderate agitation EENT: PERRL/EOMI, normal ENT inspection Cardiovascular: normal rate Respiratory/Chest: lungs clear Abdomen: distended, hepatomegaly Edema: trace edema Neurologic: spinner hand II-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 Jul 19, 2019 14:55
--- NOTE | 2019-07-19 15:40 | NUR ---
P. T WEEKLY PROGRESS NOTE: PATIENT SEEN FOR THIS PAST WEEK OF P.T SESSION TO IMPROVE STRENGTH, BALANCE AND MOBILITY INDEPENDENCE. PROGRESS IS VERY LIMITED DUE TO POOR PARTICIPATION AND ACTIVITY TOLERANCE SECONDARY TO DECLINED COGNITION AND CURRENT MEDICAL CONDITION. PATIENT REMAINED MAX A FOR BED MOBILITIES , MAX A X 2 FOR SIT TO/FROM STAND TRANSITION BUT TOO WEAK TO AMBULATE. WILL CONTINUE WITH POC.
--- NOTE | 2019-07-19 15:48 | NUR ---
P.T NOTE: PATIENT TOO LETHARGIC TO PARTICIPATE IN THERAPY. RN NOTIFIED/AWARE. WILL REATTEMPT WHEN/ APPROP.
[2019-07-19 16:00] VITALS: BP 92/59
--- NOTE | 2019-07-19 16:09 | Infectious Diseases Prog Note ---
Assessment/Plan Assessment/Plan A) 1) mssa bacteremia 2) liver cirrhosis 3) anemia 4) allergies - nkda 5) hx substance abuse 6) d/w RN, -nc 7) d/w RN P) 1) ancef - day # 13 iv abx - plan on 14 days iv abx then 2 weeks oral keflex 2) check labs, chest-x-ray, monitor labs 3) s/p tx for head lice 4) surveillance blood cultures negative 5) will f/u Subjective Constitutional: Denies: fever HEENT: Denies: congestion Respiratory: Denies: shortness of breath Cardiovascular: Denies: chest pain Gastrointestinal/Abdominal: Denies: nausea, vomiting, diarrhea Genitourinary: Reports: other - no mariano Allergies: Coded Allergies: No Known Allergies (Unverified , 07/03/19) Objective Vital Signs Last 24 Hour Vital Signs Date Time Temp Pulse Resp B/P (MAP) Pulse Ox O2 Delivery O2 Flow Rate FiO2 07/19/19 12:00 97.7 61 20 100/43 (62) 95 07/19/19 09:00 Room Air 07/19/19 08:30 91 07/19/19 08:00 97.5 89 20 101/60 (74) 95 07/19/19 04:00 97.7 92 18 104/67 (79) 95 07/19/19 04:00 92 07/19/19 00:00 98.2 86 18 120/56 (77) 95 07/19/19 00:00 86 07/18/19 21:00 Room Air 07/18/19 20:00 97.4 91 20 105/63 (77) 95 07/18/19 20:00 91 Height (Feet): 5 Height (Inches): 8.00 Weight (Pounds): 150 General Appearance: no acute distress HEENT: normocephalic, atraumatic, anicteric, mucous membranes moist Respiratory/Chest: lungs clear, normal breath sounds, no respiratory distress Cardiovascular: normal rate, regular rhythm Abdomen: normal bowel sounds, soft, non tender, no organomegaly, non distended Extremities: no cyanosis Skin: no rash 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 There may be some patchy retrocardiac consolidation as well which is unchanged. The left costophrenic angle remains blunted. The heart is borderline enlarged Impression: Development of bilateral interstitial infiltrates versus edema, over 3 days. Persistent patchy retrocardiac consolidation and possible small left pleural effusion 07/12/19 - chest x-ray - Comparison: 07/09/2019 A single view chest radiograph was obtained. Findings: Basal atelectasis demonstrated with low lung volumes. Heart size is stable and within normal limits. IMPRESSION: No change compared to the previous exam. Basal atelectasis Laboratory Tests Test 07/19/19 05:55 Sodium Level 141 MMOL/L (136-145) Potassium Level 3.6 MMOL/L (3.5-5.1) Chloride Level 111 MMOL/L (98-107) H Carbon Dioxide Level 22 MMOL/L (21-32) Anion Gap 8 mmol/L (5-15) Blood Urea Nitrogen 7 mg/dL (7-18) Creatinine 1.1 MG/DL (0.55-1.30) Estimat Glomerular Filtration Rate > 60 mL/min (>60) Glucose Level 93 MG/DL (74-106) Calcium Level 8.5 MG/DL (8.5-10.1) Magnesium Level 1.5 MG/DL (1.8-2.4) L Total Bilirubin 1.4 MG/DL (0.2-1.0) H Direct Bilirubin 0.7 MG/DL (0.0-0.3) H Aspartate Amino Transf (AST/SGOT) 66 U/L (15-37) H Alanine Aminotransferase (ALT/SGPT) 7 U/L (12-78) L Alkaline Phosphatase 109 U/L (46-116) Total Protein 6.9 G/DL (6.4-8.2) Albumin 0.9 G/DL (3.4-5.0) L Globulin 6.0 g/dL Albumin/Globulin Ratio 0.1 (1.0-2.7) L Current Medications Medications (Trade) Dose Ordered Sig/Tanja Route PRN Reason Start Time Stop Time Status Last Admin Dose Admin Azithromycin (Zithromax) 500 mg DAILY ORAL 07/15/19 09:00 07/22/19 08:59 07/19/19 09:22 Cefazolin Sodium 2 gm/Sodium Chloride 55 ml @ 110 mls/hr Q8H IVP 07/13/19 17:00 07/20/19 18:00 07/19/19 09:23 Dextrose 1,000 ml @ 100 mls/hr Q10H IV 07/14/19 16:45 08/13/19 16:44 07/19/19 00:18 Folic Acid (Folate) 1 mg DAILY ORAL 07/11/19 09:00 08/03/19 10:29 07/19/19 09:22 Lactulose (Cephulac) 20 gm THREE TIMES A DAY ORAL 07/11/19 09:00 08/04/19 12:59 07/19/19 09:23 Pantoprazole (Protonix) 40 mg Q12HR IVP 07/17/19 21:00 08/16/19 20:59 07/19/19 09:22 Potassium Chloride (K-Dur) 40 meq DAILY ORAL 07/16/19 09:00 08/15/19 08:59 07/19/19 09:23 Rifaximin (Xifaxan) 550 mg EVERY 12 HOURS ORAL 07/14/19 21:00 07/21/19 20:59 07/19/19 09:22 Thiamine HCl (Vitamin B1) 100 mg DAILY ORAL 07/11/19 09:00 08/03/19 10:29 07/19/19 09:22 Dionna Tee MD Jul 19, 2019 16:09
[2019-07-19] MEDS ORDERED: ceFAZolin sod 2 GM in NS 55 ML IVP SCH (17:00)
--- NOTE | 2019-07-19 19:42 | NUR ---
HAND-OFF: Report given to JOSEFINA Conteh. Endorsed about evntual transfer to med surg.
--- NOTE | 2019-07-19 19:53 | NUR ---
NURSE NOTES: Received it from JOSEFINA Lopez. Pt awake, alert, and restrained. Australian speaking only. Bed in lowest position. Call light within reach. IV site intact and patent. Will continue to monitor.
--- NOTE | 2019-07-19 20:20 | NUR ---
NURSE NOTES: Called and left a message with Dr. Meade regarding pts MG level, 1.5, Awaiting call back.
--- NOTE | 2019-07-19 20:44 | NUR ---
NURSE NOTES: Dr. Gibbons called and gave orders for 2gm Mg IV. Will input order and will continue to monitor. Pt will be sent to 412-2 M/S
--- NOTE | 2019-07-19 21:08 | NUR ---
HAND-OFF: Report given to JOSEFINA Pal. Pt in room 419-2
[2019-07-20] VITALS (7 sets, daily range): BP systolic 92–123; BP diastolic 62–72
[2019-07-20] MEDS: ceFAZolin sod 2 GM in NS 55 ML IVP SCH ×3 (02:00→17:16)
[2019-07-20 05:53] LABS: ANION GAP 4 mmol/L (5-15); BLOOD UREA NITROGEN 9 mg/dL (7-18); CALCIUM 8.3 MG/DL (8.5-10.1); CARBON DIOXIDE 25 MMOL/L (21-32); CHLORIDE 111 MMOL/L (98-107); CREATININE 1.1 MG/DL (0.55-1.30); POTASSIUM 3.8 MMOL/L (3.5-5.1); SODIUM 140 MMOL/L (136-145)
--- NOTE | 2019-07-20 07:27 | NUR ---
HAND-OFF: Report given to JOSEFINA THORPE.
--- NOTE | 2019-07-20 07:48 | NUR ---
NURSE NOTES: Received report from Leila, RN. Patient in bed resting, no active s/s cardiac, respiratory distress noticed at this time. Patient on room air, AOx1-2, patient on soft bilateral wrist restraints, cap refills <3 sec, able to move. IV on left FA 22G, right AC 22G, asymptomatic, patent, intact, IV fluid running as prescribed rate. Bed in lowest position, side rails upx3, bed alarm on, call light within reach. Will continue to monitor.
[2019-07-20] MEDS: Lactulose 20gm/30ml UDC ORAL SCH ×3 (08:57→17:17)
[2019-07-20] MEDS: Thiamine 100mg tab ORAL SCH (08:57)
[2019-07-20] MEDS: Pantoprazole Inj IVP SCH ×2 (08:58→20:48)
--- NOTE | 2019-07-20 09:21 | Hematology/Onc Progress Note ---
Assessment/Plan Assessment/Plan ASSESSMENT AND RECS # Anemia of iron deficiency in addition to suppression from etoh abuse and cirrhosis of liver, ETOH --> Anemia workup has been ordered, rule out gi bleed --> aid noted --> No evidence of hemolysis is noted, peripheral smear has been reviewed. --> Hgb goal >7. Transfuse prn. --> Hgb trend: 4.2-->7.1-->7.6 --> 7.6-->7.7-->8.9-->9.1-->8.9-->8.5->8.8-->8.9 --> IRON IV 200mg ordered x 1dose (given) --> Medications have been reviewed --> stool ob negative --> bone marrow biopsy is not indicated given the other more likely causes # Thrombocytopenia - secondary to liver cirrhosis --> Hep panel and HIV ordered - both negative --> US abd to evaluate for cirrhosis and hsm ordered - Hepatic surface nodularity, suggestive of cirrhosis. Ascites --> Peripheral smear ordered to evaluate for blasts /schistocytes and none significant noted --> abx and other meds have been reviewed --> ok for ppx if plt >50k w/ either heparin or lovenox --> Transfuse if Plt < 20k and fever, or if Plt < 10k without fever --> plt trend 90-->92k-->82-->92k-->85k-->104k-->122k # Coagulopathy due to liver cirrhosis secondary to Etoh --> GI is following, appreciate recs --> Abdominal ultrasound reviewed --> Supportive care --> lactulose prophylactic --> vit K on prn basis 07/15 # Substance abuse --> psych eval # Hypokalemia --> Replace, continue to monitor # Hypocalcemia --> replete Ca++ prn # Cirrhosis of the liver --> appears chronic # Dvt ppx with scds The timing of this note does not necessarily reflect the time of the patient was seen. GREATLY APPRECIATE CONSULTATION. Subjective Constitutional: Denies: no symptoms, chills, fever, malaise, weakness, other HEENT: Denies: no symptoms, eye pain, blurred vision, tearing, double vision, ear pain, ear discharge, nose pain, nose congestion, throat pain, throat swelling, mouth pain, mouth swelling, other Cardiovascular: Denies: no symptoms, chest pain, edema, irregular heart rate, lightheadedness, palpitations, syncope, other Respiratory: Denies: no symptoms, cough, shortness of breath, SOB with excertion, SOB at rest, sputum, wheezing, other Gastrointestinal/Abdominal: Denies: no symptoms, abdomen distended, abdominal pain, black stools, tarry stools, blood in stool, constipated, diarrhea, difficulty swallowing, nausea, poor appetite, poor fluid intake, rectal bleeding , vomiting, other Neurologic/Psychiatric: Denies: no symptoms, anxiety, depressed, emotional problems, headache, numbness, paresthesia, pre-existing deficit, seizure, tingling, tremors, weakness, other Endocrine: Denies: no symptoms, excessive sweating, flushing, intolerance to cold, intolerance to heat, increased hunger, increased thirst, increased urine, unexplained weight gain, unexplained weight loss, other Allergies: Coded Allergies: No Known Allergies (Unverified , 07/03/19) Subjective 07/05: no fevers, chills or night sweats noted, on iv iron has been started, on benzo 07/07: extremely agitated overnight, climbin out of bed, on cristina taper, h/h low 07/08: remains on abx, no f/c, no bleeding is noted, no changes 07/09: paracentesis negative for malignant cells, cxr and labs reviewed 07/10: no acute distress, still drowsy, has been attempting to get out of bed 07/11: transferred [facility], stool ob negative, h/h stable 07/12: imaging reviewed, on abx, us paracentesis, no distress 07/13: remains on librium, plt 85, hgb 8.5, no f/c, no night sweats 07/15: no bleeding, pt/ptt elevated, given vit K, no f/c, no chills noted 07/16: for repeat paracentesis, no f/c, no bleeding 07/17: us paracentesis, vs stable, no f/c, denies any pain, on abx, med reviewed 07/18: remains on ancef for now 14d as per id, no bleeding reported, no f/c 07/19: on abx, no f/c, vs stable, no sob, no acute distress, imaging reviewed 07/20: electrolytes repleted, no f/c, confused still Objective Objective Current Medications Medications (Trade) Dose Ordered Sig/Tanja Route PRN Reason Start Time Stop Time Status Last Admin Dose Admin Cefazolin Sodium 2 gm/Sodium Chloride 55 ml @ 110 mls/hr Q8H IVP 07/20/19 01:00 07/26/19 18:00 07/20/19 02:00 Dextrose 1,000 ml @ 100 mls/hr Q10H IV 07/19/19 21:15 08/13/19 16:44 07/20/19 08:57 Folic Acid (Folate) 1 mg DAILY ORAL 07/20/19 09:00 08/03/19 10:29 07/20/19 08:58 Lactulose (Cephulac) 20 gm THREE TIMES A DAY ORAL 07/20/19 09:00 08/04/19 12:59 07/20/19 08:57 Pantoprazole (Protonix) 40 mg Q12HR IVP 07/20/19 09:00 08/16/19 20:59 07/20/19 08:58 Potassium Chloride (K-Dur) 40 meq DAILY ORAL 07/20/19 09:00 08/15/19 08:59 07/20/19 08:58 Rifaximin (Xifaxan) 550 mg EVERY 12 HOURS ORAL 07/20/19 09:00 07/21/19 20:59 07/20/19 08:57 Thiamine HCl (Vitamin B1) 100 mg DAILY ORAL 07/20/19 09:00 08/03/19 10:29 07/20/19 08:57 Last 24 Hour Vital Signs Date Time Temp Pulse Resp B/P (MAP) Pulse Ox O2 Delivery O2 Flow Rate FiO2 07/20/19 04:00 97.8 93 18 92/62 (72) 95 07/20/19 01:40 110/67 (81) 07/20/19 00:00 97.9 85 19 107/69 (82) 95 07/19/19 21:00 Room Air 07/19/19 16:00 97.7 90 20 92/59 (70) 100 07/19/19 12:00 97.7 61 20 100/43 (62) 95 07/19/19 09:00 Room Air 07/19/19 08:30 91 07/19/19 08:00 97.5 89 20 101/60 (74) 95 07/19/19 04:00 97.7 92 18 104/67 (79) 95 07/19/19 04:00 92 07/19/19 00:00 98.2 86 18 120/56 (77) 95 07/19/19 00:00 86 07/18/19 21:00 Room Air 07/18/19 20:00 97.4 91 20 105/63 (77) 95 07/18/19 20:00 91 07/18/19 16:00 97.4 86 18 131/56 (81) 95 07/18/19 16:00 83 07/18/19 12:00 95 07/18/19 12:00 97.7 95 20 98/65 (76) 96 Intake and Output 07/19/19 07/20/19 19:00 07:00 Intake Total 75 ml 710 ml Balance 75 ml 710 ml Intake Oral 75 ml IV Total 710 ml # Voids 4 # Bowel Movements 2 1 Labs Test 07/18/19 05:48 07/18/19 08:48 07/19/19 05:55 07/20/19 05:20 White Blood Count 8.4 K/UL (4.8-10.8) Red Blood Count 3.25 M/UL (4.70-6.10) Hemoglobin 8.9 G/DL (14.2-18.0) Hematocrit 30.1 % (42.0-52.0) Mean Corpuscular Volume 93 FL (80-99) Mean Corpuscular Hemoglobin 27.5 PG (27.0-31.0) Mean Corpuscular Hemoglobin Concent 29.6 G/DL (32.0-36.0) Red Cell Distribution Width 22.5 % (11.6-14.8) Platelet Count 122 K/UL (150-450) Mean Platelet Volume 7.7 FL (6.5-10.1) Neutrophils (%) (Auto) 62.5 % (45.0-75.0) Lymphocytes (%) (Auto) 22.2 % (20.0-45.0) Monocytes (%) (Auto) 12.0 % (1.0-10.0) Eosinophils (%) (Auto) 2.0 % (0.0-3.0) Basophils (%) (Auto) 1.3 % (0.0-2.0) Sodium Level 144 MMOL/L (136-145) 141 MMOL/L (136-145) 140 MMOL/L (136-145) Potassium Level 3.5 MMOL/L (3.5-5.1) 3.6 MMOL/L (3.5-5.1) 3.8 MMOL/L (3.5-5.1) Chloride Level 113 MMOL/L (98-107) 111 MMOL/L (98-107) 111 MMOL/L (98-107) Carbon Dioxide Level 24 MMOL/L (21-32) 22 MMOL/L (21-32) 25 MMOL/L (21-32) Anion Gap 7 mmol/L (5-15) 8 mmol/L (5-15) 4 mmol/L (5-15) Blood Urea Nitrogen 7 mg/dL (7-18) 7 mg/dL (7-18) 9 mg/dL (7-18) Creatinine 1.1 MG/DL (0.55-1.30) 1.1 MG/DL (0.55-1.30) 1.1 MG/DL (0.55-1.30) Estimat Glomerular Filtration Rate > 60 mL/min (>60) > 60 mL/min (>60) > 60 mL/min (>60) Glucose Level 72 MG/DL (74-106) 93 MG/DL (74-106) 98 MG/DL (74-106) Calcium Level 8.7 MG/DL (8.5-10.1) 8.5 MG/DL (8.5-10.1) 8.3 MG/DL (8.5-10.1) Phosphorus Level 2.8 MG/DL (2.5-4.9) Magnesium Level 1.2 MG/DL (1.8-2.4) 1.5 MG/DL (1.8-2.4) 1.5 MG/DL (1.8-2.4) Total Bilirubin 1.5 MG/DL (0.2-1.0) 1.4 MG/DL (0.2-1.0) Direct Bilirubin 0.8 MG/DL (0.0-0.3) 0.7 MG/DL (0.0-0.3) Aspartate Amino Transf (AST/SGOT) 71 U/L (15-37) 66 U/L (15-37) Alanine Aminotransferase (ALT/SGPT) 9 U/L (12-78) 7 U/L (12-78) Alkaline Phosphatase 112 U/L (46-116) 109 U/L (46-116) Total Protein 7.3 G/DL (6.4-8.2) 6.9 G/DL (6.4-8.2) Albumin 1.0 G/DL (3.4-5.0) 0.9 G/DL (3.4-5.0) Globulin 6.3 g/dL 6.0 g/dL Albumin/Globulin Ratio 0.2 (1.0-2.7) 0.1 (1.0-2.7) Alpha Fetoprotein 3.4 ng/mL (0.0-8.3) Height (Feet): 5 Height (Inches): 8.00 Weight (Pounds): 150 Objective Physical Exam: Vitals: reviewed General Appearance: NAD HEENT: normocephalic, atraumatic Neck: non-tender, normal alignment Respiratory/Chest: normal breath sounds bilaterally Cardiovascular/Chest: normal peripheral pulses, normal rate Abdomen: normal bowel sounds, soft, nontender +++ ascites Avery Guo MD Jul 20, 2019 09:21
--- NOTE | 2019-07-20 10:16 | Surgery Progress Note ---
Surgery Progress Note Subjective Symptoms: improved, pain absent, tolerating diet, voiding well, passing flatus Objective Last 24 Hour Vital Signs Date Time Temp Pulse Resp B/P (MAP) Pulse Ox O2 Delivery O2 Flow Rate FiO2 07/20/19 04:00 97.8 93 18 92/62 (72) 95 07/20/19 01:40 110/67 (81) 07/20/19 00:00 97.9 85 19 107/69 (82) 95 07/19/19 21:00 Room Air 07/19/19 16:00 97.7 90 20 92/59 (70) 100 07/19/19 12:00 97.7 61 20 100/43 (62) 95 I&O Intake and Output 07/19/19 07/20/19 19:00 07:00 Intake Total 75 ml 710 ml Balance 75 ml 710 ml Intake Oral 75 ml IV Total 710 ml # Voids 4 # Bowel Movements 2 1 Cardiovascular: RSR Respiratory: clear Abdomen: soft, flat, non-tender, present bowel sounds Extremities: no edema, no tenderness, no cyanosis Laboratory Tests Test 07/20/19 05:20 Sodium Level 140 MMOL/L (136-145) Potassium Level 3.8 MMOL/L (3.5-5.1) Chloride Level 111 MMOL/L (98-107) H Carbon Dioxide Level 25 MMOL/L (21-32) Anion Gap 4 mmol/L (5-15) L Blood Urea Nitrogen 9 mg/dL (7-18) Creatinine 1.1 MG/DL (0.55-1.30) Estimat Glomerular Filtration Rate > 60 mL/min (>60) Glucose Level 98 MG/DL (74-106) Calcium Level 8.3 MG/DL (8.5-10.1) L Magnesium Level 1.5 MG/DL (1.8-2.4) L Plan Problems: (1) Abdominal distension Assessment & Plan: Abdominal distention from ascites as he has significant liver dysfunction para with 8L fluid without malignant cells micro with bacteremia labs stable and improving . exam stable more awake and responsive Findings: There is ascites fluid present. Gallbladder is unremarkable, without stones, wall thickening, nor pericholecystic fluid. Sonographic Washington's sign is negative. Common bile duct measures 3 mm in diameter. No intrahepatic biliary ductal dilatation. Liver demonstrates slightly increased echogenicity. No focal abnormality. It demonstrates surface nodularity. Portal vein and hepatic veins are patent. Pancreas is obscured by bowel gas. Spleen is unremarkable. Left kidney measures 11.4 cm in length. Right kidney measures 11.1 cm length. Both kidneys demonstrate normal echogenicity. There is no hydronephrosis. No focal abnormality . Abdominal aorta is partially obscured by bowel gas, visualized portions are non-aneurysmal . Impression: Hepatic surface nodularity, suggestive of cirrhosis. Ascites Negative for gallstones or dilated bile ducts (2) Facial trauma Assessment & Plan: Findings: No acute intracranial hemorrhage or edema. No mass effect or midline shift. Normal hardy-white differentiation. Slightly prominent for age ventricles and extra axial CSF spaces. Mild periventricular deep white matter low-attenuation consistent with chronic microvascular ischemic changes noted Questionable minimal left supraorbital scalp contusion. Intact calvarium. Visualized orbits and sinuses are unremarkable. The mastoids are clear. unknown if fall or assault lip with dry blood and in medial aspect small oozing - resolved apply dressing prn thank you Alvin James Jul 20, 2019 10:16
--- NOTE | 2019-07-20 13:48 | General Progress Note ---
Assessment/Plan Status: stable, unchanged Assessment/Plan: 48-year-old male with past medical history of ETOH abuse presented found down. Overall improving s/p paracentesis 07/16/19 #Encephalopathy likely multifactorial including hepatic encephalopathy ( elevated ammonia), as well as sepsis with bacteremia due to MSSA. #Sepsis secondary to bacteremia due to MSSA -s/p vancomycin and Zosyn (07/06), now cefazolin per ID recs. Day 14 of 14. Will switch to Keflex for 2 weeks once 14 days of Ancef over -Repeat blood cultures are negative -Infectious disease consult, appreciate recs #Hypernatremia- resolved encourage PO intake # Lice - primerin treatment - Ordered to clip hair as persistent lice noted despite 2 shampoo treatment #Liver cirrhosis secondary to EtOH # ETOH withdrawal. Libirum being used. - DF 31 -MELD 15 on admission -Abdominal ultrasound reviewed -Status post paracentesis 07/05/2019 with removal of 8 L. -Albumin for BP support as needed -Supportive care - lactulose VA - Repeat paracentesis 07/16. Recheck INR, VIT K and ffp as needed #Anemia, likely might multifactorial including acute blood loss anemia, anemia of chronic disease -Hematology consult, appreciate recs -Iron panel: Reviewed -Low folate: Replace -B12 within normal limits above 800 -GI consult, appreciate recs. HOLD OFF NGT for now due to risk with possible esophageal varices. PENDING EGD per GI decision. Patient is gradually waking up and eating is still a problem. MONITOR closely as he is now 9 days into the Hospital stay. #Thrombocytopenia -due to cirrhosis- stable #Substance abuse -Nodular liver in ultrasound suggestive of cirrhosis -Check hepatitis and HIV: hiv neg, hepatitis panel negative -Social work Consult - Psyche consult, appreciate recs #Hypokalemia Replace as needed, will replace today # Hypomagnesemia Replace today # Hypocalcemia - replace as needed #Dysphagia -Etiology due to agitation, likely due underlying hepatic encephalopathy vs side effect of Ativan #full code # Disposition SW and CM follow up needed. Homeless. The time of my note may not reflect the time of my patient encounter. I spent 40 minutes on this encounter, greater than 50 percent in counseling and care coordination Subjective Date patient seen: Jul 20, 2019 ROS Limited/Unobtainable: No Constitutional: Denies: no symptoms, chills, diaphoresis, fever, malaise, weakness, other HEENT: Denies: no symptoms, eye pain, blurred vision, tearing, double vision, ear pain, ear discharge, nose pain, nose congestion, throat pain, throat swelling, mouth pain, mouth swelling, other Cardiovascular: Denies: no symptoms, chest pain, edema, irregular heart rate, lightheadedness, palpitations, syncope, other Respiratory: Denies: no symptoms, cough, orthopnea, shortness of breath, SOB with excertion, SOB at rest, sputum, stridor, wheezing, other Gastrointestinal/Abdominal: Denies: no symptoms, abdomen distended, abdominal pain, black stools, tarry stools, blood in stool, constipated, diarrhea, difficulty swallowing, nausea, poor appetite, poor fluid intake, rectal bleeding , vomiting, other Genitourinary: Denies: no symptoms, burning, discharge, frequency, flank pain, hematuria, incontinence, pain, urgency, other Neurologic/Psychiatric: Denies: no symptoms, anxiety, depressed, emotional problems, headache, numbness, paresthesia, pre-existing deficit, seizure, tingling, tremors, weakness, other Endocrine: Denies: no symptoms, excessive sweating, flushing, intolerance to cold, intolerance to heat, increased hunger, increased thirst, increased urine, unexplained weight gain, unexplained weight loss, other Hematologic/Lymphatic: Denies: no symptoms, anemia, easy bleeding, easy bruising, other Allergies: Coded Allergies: No Known Allergies (Unverified , 07/03/19) Subjective seen and examined awake calm [facility] for mssa bacteremia Objective Last 24 Hour Vital Signs Date Time Temp Pulse Resp B/P (MAP) Pulse Ox O2 Delivery O2 Flow Rate FiO2 07/20/19 12:00 97.7 62 18 123/72 (89) 97 07/20/19 09:00 Room Air 07/20/19 08:00 97.2 85 18 114/65 (81) 98 07/20/19 04:00 97.8 93 18 92/62 (72) 95 07/20/19 01:40 110/67 (81) 07/20/19 00:00 97.9 85 19 107/69 (82) 95 07/19/19 21:00 Room Air 07/19/19 16:00 97.7 90 20 92/59 (70) 100 Intake and Output 07/19/19 07/20/19 19:00 07:00 Intake Total 75 ml 710 ml Balance 75 ml 710 ml Intake Oral 75 ml IV Total 710 ml # Voids 4 # Bowel Movements 2 1 Laboratory Tests 07/20/19 05:20: Sodium Level 140, Potassium Level 3.8, Chloride Level 111H, Carbon Dioxide Level 25, Anion Gap 4L, Blood Urea Nitrogen 9, Creatinine 1.1, Estimat Glomerular Filtration Rate > 60, Glucose Level 98, Calcium Level 8.3L, Magnesium Level 1.5L Height (Feet): 5 Height (Inches): 8.00 Weight (Pounds): 150 Objective General Appearance: moderate agitation EENT: PERRL/EOMI, normal ENT inspection Cardiovascular: normal rate Respiratory/Chest: lungs clear Abdomen: distended, hepatomegaly Edema: trace edema Neurologic: family psychologist II-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 Jul 20, 2019 13:48
[2019-07-20] MEDS ORDERED: Tubing IV Secondary IV ONE (14:31)
--- NOTE | 2019-07-20 19:32 | NUR ---
HAND-OFF: Report given to JOSEFINA Rincon.
--- NOTE | 2019-07-20 19:56 | NUR ---
NURSE NOTES: Received pt sleeping in the bed. pt is on room air. Soft bilateral wrists restraints intact and the skin under the restraints intact. IV site intact and running D5 100cc/hr. Condom cath intact. Bed locked, lowest position, alarm on, padded side rails up x 2, call light within reach. Will continue to monitor.
[2019-07-21] VITALS: BP 112/74
[2019-07-21] MEDS: ceFAZolin sod 2 GM in NS 55 ML IVP SCH ×2 (01:28→09:25)
[2019-07-21 04:00] VITALS: BP 112/71
--- NOTE | 2019-07-21 07:37 | NUR ---
HAND-OFF: Report given to JOSEFINA Wilson.
[2019-07-21 08:00] VITALS: BP 102/79
--- NOTE | 2019-07-21 08:10 | NUR ---
NURSE NOTES: received pt from NOC RN Ирина Rincon. Pt is asleep, with no sign of distress, on bilateral soft wrist restraints, skin intact under restraints. Receives IVF D5 W @ 100cc/hr, on the LFA access, no sign of infiltration noted. Bed locked at the lowest position possible, call light within easy reach, siderails up x2. Will continue to monitor pt and follow up with the plan of care.
[2019-07-21] MEDS: Pantoprazole Inj IVP SCH ×2 (09:26→21:09)
[2019-07-21] MEDS: Lactulose 20gm/30ml UDC ORAL SCH ×3 (09:26→17:48)
[2019-07-21] MEDS: Thiamine 100mg tab ORAL SCH (09:26)
--- NOTE | 2019-07-21 09:57 | Surgery Progress Note ---
Surgery Progress Note Subjective Additional Comments no acute events talkative responsive abd fluid distended Objective Last 24 Hour Vital Signs Date Time Temp Pulse Resp B/P (MAP) Pulse Ox O2 Delivery O2 Flow Rate FiO2 07/21/19 08:00 97.5 87 22 102/79 (87) 96 07/21/19 04:00 97.8 90 19 112/71 (85) 98 07/21/19 00:00 98.8 59 19 112/74 (87) 96 07/20/19 21:00 Room Air 07/20/19 20:00 97.9 89 19 105/64 (78) 95 07/20/19 16:00 97.4 72 19 106/68 (81) 98 07/20/19 12:00 97.7 62 18 123/72 (89) 97 I&O Intake and Output 07/20/19 07/21/19 19:00 07:00 Intake Total 700 ml 700 ml Balance 700 ml 700 ml IV Total 100 ml 700 ml Other 600 ml # Bowel Movements 1 Cardiovascular: RSR Respiratory: clear Abdomen: soft, distended, non-tender, present bowel sounds Extremities: no cyanosis Plan Problems: (1) Abdominal distension Assessment & Plan: Abdominal distention from ascites as he has significant liver dysfunction para with 8L fluid without malignant cells micro with bacteremia labs stable and improving . exam stable more awake and responsive Findings: There is ascites fluid present. Gallbladder is unremarkable, without stones, wall thickening, nor pericholecystic fluid. Sonographic Washington's sign is negative. Common bile duct measures 3 mm in diameter. No intrahepatic biliary ductal dilatation. Liver demonstrates slightly increased echogenicity. No focal abnormality. It demonstrates surface nodularity. Portal vein and hepatic veins are patent. Pancreas is obscured by bowel gas. Spleen is unremarkable. Left kidney measures 11.4 cm in length. Right kidney measures 11.1 cm length. Both kidneys demonstrate normal echogenicity. There is no hydronephrosis. No focal abnormality . Abdominal aorta is partially obscured by bowel gas, visualized portions are non-aneurysmal . Impression: Hepatic surface nodularity, suggestive of cirrhosis. Ascites Negative for gallstones or dilated bile ducts (2) Facial trauma Assessment & Plan: Findings: No acute intracranial hemorrhage or edema. No mass effect or midline shift. Normal hardy-white differentiation. Slightly prominent for age ventricles and extra axial CSF spaces. Mild periventricular deep white matter low-attenuation consistent with chronic microvascular ischemic changes noted Questionable minimal left supraorbital scalp contusion. Intact calvarium. Visualized orbits and sinuses are unremarkable. The mastoids are clear. unknown if fall or assault lip with dry blood and in medial aspect small oozing - resolved apply dressing prn thank you Alvin James Jul 21, 2019 09:57
[2019-07-21 12:00] VITALS: BP 118/78
--- NOTE | 2019-07-21 12:53 | Infectious Diseases Prog Note ---
Assessment/Plan Assessment/Plan A) 1) mssa bacteremia 2) liver cirrhosis 3) anemia 4) allergies - nkda 5) hx substance abuse 6) d/w RN, -nc 7) d/w RN P) 1) placed on oral keflex x 2 weeks 2) check labs, chest-x-ray, monitor labs 3) s/p tx for head lice 4) surveillance blood cultures negative 5) will sign off, call if questions Subjective Allergies: Coded Allergies: No Known Allergies (Unverified , 07/03/19) Objective Vital Signs Last 24 Hour Vital Signs Date Time Temp Pulse Resp B/P (MAP) Pulse Ox O2 Delivery O2 Flow Rate FiO2 07/21/19 12:00 97.7 83 20 118/78 (91) 98 07/21/19 09:00 Room Air 07/21/19 08:00 97.5 87 22 102/79 (87) 96 07/21/19 04:00 97.8 90 19 112/71 (85) 98 07/21/19 00:00 98.8 59 19 112/74 (87) 96 07/20/19 21:00 Room Air 07/20/19 20:00 97.9 89 19 105/64 (78) 95 07/20/19 16:00 97.4 72 19 106/68 (81) 98 Height (Feet): 5 Height (Inches): 8.00 Weight (Pounds): 150 Objective 07/09/19 - chest x-ray - Comparison: 07/06/2019 Findings: Bilateral interstitial disease has developed in the interim. There may be some patchy retrocardiac consolidation as well which is unchanged. The left costophrenic angle remains blunted. The heart is borderline enlarged Impression: Development of bilateral interstitial infiltrates versus edema, over 3 days. Persistent patchy retrocardiac consolidation and possible small left pleural effusion 07/12/19 - chest x-ray - Comparison: 07/09/2019 A single view chest radiograph was obtained. Findings: Basal atelectasis demonstrated with low lung volumes. Heart size is stable and within normal limits. IMPRESSION: No change compared to the previous exam. Basal atelectasis Current Medications Medications (Trade) Dose Ordered Sig/Tanja Route PRN Reason Start Time Stop Time Status Last Admin Dose Admin Cephalexin (Keflex) 500 mg EVERY 8 HOURS ORAL 07/21/19 14:00 07/28/19 13:59 Dextrose 1,000 ml @ 100 mls/hr Q10H IV 07/19/19 21:15 08/13/19 16:44 07/21/19 01:28 Folic Acid (Folate) 1 mg DAILY ORAL 07/20/19 09:00 08/03/19 10:29 07/21/19 09:26 Lactulose (Cephulac) 20 gm THREE TIMES A DAY ORAL 07/20/19 09:00 08/04/19 12:59 07/21/19 09:26 Magnesium Sulfate 100 ml @ 100 mls/hr Q1H IVPB 07/21/19 13:00 07/21/19 15:59 Pantoprazole (Protonix) 40 mg Q12HR IVP 07/20/19 09:00 08/16/19 20:59 07/21/19 09:26 Potassium Chloride (K-Dur) 40 meq DAILY ORAL 07/20/19 09:00 08/15/19 08:59 07/21/19 09:26 Rifaximin (Xifaxan) 550 mg EVERY 12 HOURS ORAL 07/20/19 09:00 07/21/19 20:59 07/21/19 09:26 Thiamine HCl (Vitamin B1) 100 mg DAILY ORAL 07/20/19 09:00 08/03/19 10:29 07/21/19 09:26 Dionna Tee MD Jul 21, 2019 12:53
[2019-07-21] MEDS ORDERED: Cephalexin 500mg cap ORAL SCH (14:00)
[2019-07-21 16:00] VITALS: BP 121/76
[2019-07-21] MEDS: Cephalexin 500mg cap ORAL SCH ×2 (17:48→23:55)
--- NOTE | 2019-07-21 19:05 | NUR ---
HAND-OFF: Report given to JOSEFINA Rincon..
--- NOTE | 2019-07-21 19:28 | NUR ---
NURSE NOTES: Received pt resting in the bed. AAO x 1, On room air. Pt is confused. Soft bilateral wrists restraints intact and the skin under the restraints intact. IV site intact and running D5W 100cc/hr. Bed locked, lowest position, alarm on, padded side rails up x 2, call light within reach. Will continue to monitor.
[2019-07-21 20:00] VITALS: BP 113/65
--- NOTE | 2019-07-21 20:41 | General Progress Note ---
Assessment/Plan Status: stable, unchanged Assessment/Plan: 48-year-old male with past medical history of ETOH abuse presented found down. Overall improving s/p paracentesis 07/16/19 #Encephalopathy likely multifactorial including hepatic encephalopathy ( elevated ammonia), as well as sepsis with bacteremia due to MSSA. #Sepsis secondary to bacteremia due to MSSA -s/p vancomycin and Zosyn (07/06), now cefazolin per ID recs. Day 14 of 14. Will switch to Keflex for 2 weeks -Repeat blood cultures are negative -Infectious disease consult, appreciate recs #Hypernatremia- resolved encourage PO intake # Lice - primerin treatment - Ordered to clip hair as persistent lice noted despite 2 shampoo treatment #Liver cirrhosis secondary to EtOH # ETOH withdrawal. Libirum being used. - DF 31 -MELD 15 on admission -Abdominal ultrasound reviewed -Status post paracentesis 07/05/2019 with removal of 8 L. -Albumin for BP support as needed -Supportive care - lactulose [place] - Repeat paracentesis 07/16. Recheck INR, VIT K and ffp as needed #Anemia, likely might multifactorial including acute blood loss anemia, anemia of chronic disease -Hematology consult, appreciate recs -Iron panel: Reviewed -Low folate: Replace -B12 within normal limits above 800 -GI consult, appreciate recs. HOLD OFF NGT for now due to risk with possible esophageal varices. PENDING EGD per GI decision. Patient is gradually waking up and eating is still a problem. MONITOR closely as he is now 9 days into the Hospital stay. #Thrombocytopenia -due to cirrhosis- stable #Substance abuse -Nodular liver in ultrasound suggestive of cirrhosis -Check hepatitis and HIV: hiv neg, hepatitis panel negative -Social work Consult - Psyche consult, appreciate recs #Hypokalemia Replace as needed, will replace today # Hypomagnesemia Replace today # Hypocalcemia - replace as needed #Dysphagia -Etiology due to agitation, likely due underlying hepatic encephalopathy vs side effect of Ativan #full code # Disposition SW and CM follow up needed. Homeless. The time of my note may not reflect the time of my patient encounter. I spent 40 minutes on this encounter, greater than 50 percent in counseling and care coordination Subjective Date patient seen: Jul 21, 2019 ROS Limited/Unobtainable: Yes Allergies: Coded Allergies: No Known Allergies (Unverified , 07/03/19) Subjective seen and examined awake calm day of Ancef for mssa bacteremia, Will switch to oral Objective Last 24 Hour Vital Signs Date Time Temp Pulse Resp B/P (MAP) Pulse Ox O2 Delivery O2 Flow Rate FiO2 07/21/19 16:00 98.0 79 18 121/76 (91) 97 07/21/19 12:00 97.7 83 20 118/78 (91) 98 07/21/19 09:00 Room Air 07/21/19 08:00 97.5 87 22 102/79 (87) 96 07/21/19 04:00 97.8 90 19 112/71 (85) 98 07/21/19 00:00 98.8 59 19 112/74 (87) 96 07/20/19 21:00 Room Air Intake and Output 07/20/19 07/21/19 18:59 06:59 Intake Total 600 ml 800 ml Balance 600 ml 800 ml IV Total 800 ml Other 600 ml # Bowel Movements 1 Height (Feet): 5 Height (Inches): 8.00 Weight (Pounds): 150 Objective General Appearance: moderate agitation EENT: PERRL/EOMI, normal ENT inspection Cardiovascular: normal rate Respiratory/Chest: lungs clear Abdomen: distended, hepatomegaly Edema: trace edema 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 Jul 21, 2019 20:41
[2019-07-22] VITALS: BP 117/52
[2019-07-22 04:00] VITALS: BP 129/77
[2019-07-22] MEDS: Cephalexin 500mg cap ORAL SCH ×3 (05:40→18:10)
--- NOTE | 2019-07-22 06:48 | NUR ---
NURSE NOTES: Left message Dr. Meade that pt HR 105 @0000, 111 @0400. Will continue to monitor.
--- NOTE | 2019-07-22 07:45 | NUR ---
HAND-OFF: Report given to JOSEFINA Wilson.
[2019-07-22 08:00] VITALS: BP 119/78
--- NOTE | 2019-07-22 08:17 | NUR ---
NURSE NOTES: received pt from NOC RN Ирина Rincon. Pt is awake, no complaint of pain or discomfort, on bilateral soft wrist restraints, skin intact under restraints. Receives IVF D5 W @ 100cc/hr, on the LFA access, no sign of infiltration noted. Bed locked at the lowest position possible, call light within easy reach, siderails up x2. Will continue to monitor pt and follow up with the plan of care.
[2019-07-22] MEDS: Lactulose 20gm/30ml UDC ORAL SCH ×3 (10:16→18:10)
[2019-07-22] MEDS: Thiamine 100mg tab ORAL SCH (10:16)
[2019-07-22] MEDS: Pantoprazole Inj IVP SCH ×2 (10:17→20:28)
--- NOTE | 2019-07-22 11:50 | Surgery Progress Note ---
Surgery Progress Note Subjective Additional Comments no acute events comfortable stable no complaints Objective Last 24 Hour Vital Signs Date Time Temp Pulse Resp B/P (MAP) Pulse Ox O2 Delivery O2 Flow Rate FiO2 07/22/19 08:00 98.9 92 17 119/78 (92) 96 07/22/19 04:00 97.8 111 20 129/77 (94) 98 07/22/19 00:00 98.9 105 20 117/52 (73) 99 07/21/19 21:00 Room Air 07/21/19 20:00 98.4 76 20 113/65 (81) 97 07/21/19 16:00 98.0 79 18 121/76 (91) 97 07/21/19 12:00 97.7 83 20 118/78 (91) 98 I&O Intake and Output 07/21/19 07/22/19 19:00 07:00 Intake Total 1655 ml 800 ml Balance 1655 ml 800 ml IV Total 855 ml 800 ml Other 800 ml # Voids 1 # Bowel Movements 2 Cardiovascular: RSR Respiratory: clear Abdomen: soft, non-tender, present bowel sounds Extremities: no cyanosis, other Plan Problems: (1) Abdominal distension Assessment & Plan: Abdominal distention from ascites as he has significant liver dysfunction para with 8L fluid without malignant cells micro with bacteremia labs stable and improving . exam stable more awake and responsive Findings: There is ascites fluid present. Gallbladder is unremarkable, without stones, wall thickening, nor pericholecystic fluid. Sonographic Washington's sign is negative. Common bile duct measures 3 mm in diameter. No intrahepatic biliary ductal dilatation. Liver demonstrates slightly increased echogenicity. No focal abnormality. It demonstrates surface nodularity. Portal vein and hepatic veins are patent. Pancreas is obscured by bowel gas. Spleen is unremarkable. Left kidney measures 11.4 cm in length. Right kidney measures 11.1 cm length. Both kidneys demonstrate normal echogenicity. There is no hydronephrosis. No focal abnormality . Abdominal aorta is partially obscured by bowel gas, visualized portions are non-aneurysmal . Impression: Hepatic surface nodularity, suggestive of cirrhosis. Ascites Negative for gallstones or dilated bile ducts (2) Facial trauma Assessment & Plan: Findings: No acute intracranial hemorrhage or edema. No mass effect or midline shift. Normal hardy-white differentiation. Slightly prominent for age ventricles and extra axial CSF spaces. Mild periventricular deep white matter low-attenuation consistent with chronic microvascular ischemic changes noted Questionable minimal left supraorbital scalp contusion. Intact calvarium. Visualized orbits and sinuses are unremarkable. The mastoids are clear. unknown if fall or assault lip with dry blood and in medial aspect small oozing - resolved apply dressing prn thank you Alvin James Jul 22, 2019 11:50
[2019-07-22 12:00] VITALS: BP 120/79
--- NOTE | 2019-07-22 12:23 | GI Progress Note ---
Assessment/Plan Problems: (1) Ascites ICD Codes: R18.8 - Other ascites SNOMED: 623899129 (2) Cirrhosis ICD Codes: K74.60 - Unspecified cirrhosis of liver SNOMED: 68644041 (3) Abdominal distension ICD Codes: R14.0 - Abdominal distension (gaseous) SNOMED: 16640583 (4) Acute alcoholic intoxication ICD Codes: F10.929 - Alcohol use, unspecified with intoxication, unspecified SNOMED: 94878338, 5898149 Qualifiers: Qualified Codes: F10.929 - Alcohol use, unspecified with intoxication, unspecified (5) Anemia ICD Codes: D64.9 - Anemia, unspecified SNOMED: 157100222 Qualifiers: Qualified Codes: D64.9 - Anemia, unspecified Status: stable, unchanged Status Narrative Discussed with Dr. Guzman. Assessment/Plan Assessment (1) Anemia (2) Acute alcoholic intoxication (3) Cirrhosis (4) Ascites (5) Encephalopathy / delirium (6) abnormal lytes tolerating diet no obvious GIB per nurses Recommendations prn paracentesis protonix eating better , continue to push PO on librium now The patient was seen and examined at bedside and all new and available data was reviewed in the patients chart. I agree with the above findings, impression and plan. (Patient seen earlier today. Signature stamp does not reflect patient encounter time.). - Robert Guzman MD Subjective Gastrointestinal/Abdominal: Reports: no symptoms Subjective limited Objective Last 24 Hour Vital Signs Date Time Temp Pulse Resp B/P (MAP) Pulse Ox O2 Delivery O2 Flow Rate FiO2 07/22/19 09:00 Room Air 07/22/19 08:00 98.9 92 17 119/78 (92) 96 07/22/19 04:00 97.8 111 20 129/77 (94) 98 07/22/19 00:00 98.9 105 20 117/52 (73) 99 07/21/19 21:00 Room Air 07/21/19 20:00 98.4 76 20 113/65 (81) 97 07/21/19 16:00 98.0 79 18 121/76 (91) 97 Intake and Output 07/21/19 07/22/19 19:00 07:00 Intake Total 1655 ml 800 ml Balance 1655 ml 800 ml IV Total 855 ml 800 ml Other 800 ml # Voids 1 # Bowel Movements 2 Height (Feet): 5 Height (Inches): 8.00 Weight (Pounds): 150 General Appearance: WD/WN, no apparent distress, alert Cardiovascular: normal rate Respiratory/Chest: normal breath sounds, no respiratory distress Abdominal Exam: normal bowel sounds, non tender, soft Extremities: non-tender Maryam Castellanos NP Jul 22, 2019 12:23
--- NOTE | 2019-07-22 13:52 | General Progress Note ---
Assessment/Plan Status: stable, unchanged Assessment/Plan: 48-year-old male with past medical history of ETOH abuse presented found down. Overall improving s/p paracentesis 07/16/19 #Encephalopathy likely multifactorial including hepatic encephalopathy ( elevated ammonia), as well as sepsis with bacteremia due to MSSA. #Sepsis secondary to bacteremia due to MSSA -s/p vancomycin and Zosyn (07/06), now cefazolin per ID recs. Keflex for 2 weeks started 07/21/19 -Repeat blood cultures are negative -Infectious disease consult, appreciate recs #Hypernatremia- resolved encourage PO intake # Lice - primerin treatment - Ordered to clip hair as persistent lice noted despite 2 shampoo treatment #Liver cirrhosis secondary to EtOH # ETOH withdrawal. Discontinue Libirum - DF 31 -MELD 15 on admission -Abdominal ultrasound reviewed -Status post paracentesis 07/05/2019 with removal of 8 L. -Albumin for BP support as needed -Supportive care - lactulose [place] - Repeat paracentesis 07/16. Recheck INR, VIT K and ffp as needed check ammonia #Anemia, likely might multifactorial including acute blood loss anemia, anemia of chronic disease -Hematology consult, appreciate recs -Iron panel: Reviewed -Low folate: Replace -B12 within normal limits above 800 -GI consult, appreciate recs. HOLD OFF NGT for now due to risk with possible esophageal varices. PENDING EGD per GI decision. Patient is gradually waking up and eating is still a problem. MONITOR closely as he is now 9 days into the Hospital stay. #Thrombocytopenia -due to cirrhosis- stable #Substance abuse -Nodular liver in ultrasound suggestive of cirrhosis -Check hepatitis and HIV: hiv neg, hepatitis panel negative -Social work Consult - Psyche consult, appreciate recs #Hypokalemia Replace as needed, will replace today # Hypomagnesemia Replace today # Hypocalcemia - replace as needed #Dysphagia -Etiology due to agitation, likely due underlying hepatic encephalopathy vs side effect of Ativan #full code # Disposition SW and CM follow up needed. Homeless. The time of my note may not reflect the time of my patient encounter. I spent 40 minutes on this encounter, greater than 50 percent in counseling and care coordination Subjective Date patient seen: Jul 22, 2019 ROS Limited/Unobtainable: Yes Allergies: Coded Allergies: No Known Allergies (Unverified , 8/21/19) Subjective seen and examined awake calm mental status waxing and waning on oral antibiotics Objective Last 24 Hour Vital Signs Date Time Temp Pulse Resp B/P (MAP) Pulse Ox O2 Delivery O2 Flow Rate FiO2 07/22/19 12:00 98.8 106 18 120/79 (93) 99 07/22/19 09:00 Room Air 07/22/19 08:00 98.9 92 17 119/78 (92) 96 07/22/19 04:00 97.8 111 20 129/77 (94) 98 07/22/19 00:00 98.9 105 20 117/52 (73) 99 07/21/19 21:00 Room Air 07/21/19 20:00 98.4 76 20 113/65 (81) 97 07/21/19 16:00 98.0 79 18 121/76 (91) 97 Intake and Output 07/21/19 07/22/19 19:00 07:00 Intake Total 1655 ml 800 ml Balance 1655 ml 800 ml IV Total 855 ml 800 ml Other 800 ml # Voids 1 # Bowel Movements 2 Height (Feet): 5 Height (Inches): 8.00 Weight (Pounds): 150 Objective General Appearance: moderate agitation EENT: PERRL/EOMI, normal ENT inspection Cardiovascular: normal rate Respiratory/Chest: lungs clear Abdomen: distended, hepatomegaly Edema: trace edema 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 Jul 22, 2019 13:52
--- NOTE | 2019-07-22 15:12 | NUR ---
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 98.8 HR 111 RR 18 B/P 120/79 RA 98% IS: KEFLEX PO LACTULOSE PO PROTONIX IV IVF D5 @ 100ML/HR MED/SURG STATUS
[2019-07-22 16:00] VITALS: BP 126/91
--- NOTE | 2019-07-22 16:03 | Hematology/Onc Progress Note ---
Assessment/Plan Assessment/Plan ASSESSMENT AND RECS # Anemia of iron deficiency in addition to suppression from etoh abuse and cirrhosis of liver, ETOH --> Anemia workup has been ordered, rule out gi bleed --> aid noted --> No evidence of hemolysis is noted, peripheral smear has been reviewed. --> Hgb goal >7. Transfuse prn. --> Hgb trend: 4.2-->7.1-->7.6 --> 7.6-->7.7-->8.9-->9.1-->8.9-->8.5->8.8-->8.9 --> IRON IV 200mg ordered x 1dose (given) --> Medications have been reviewed --> stool ob negative --> bone marrow biopsy is not indicated given the other more likely causes # Thrombocytopenia - secondary to liver cirrhosis --> Hep panel and HIV ordered - both negative --> US abd to evaluate for cirrhosis and hsm ordered - Hepatic surface nodularity, suggestive of cirrhosis. Ascites --> Peripheral smear ordered to evaluate for blasts /schistocytes and none significant noted --> abx and other meds have been reviewed --> ok for ppx if plt >50k w/ either heparin or lovenox --> Transfuse if Plt < 20k and fever, or if Plt < 10k without fever --> plt trend 90-->92k-->82-->92k-->85k-->104k-->122k # Coagulopathy due to liver cirrhosis secondary to Etoh --> GI is following, appreciate recs --> Abdominal ultrasound reviewed --> Supportive care --> lactulose prophylactic --> vit K on prn basis 07/15 # Substance abuse --> psych eval # Hypokalemia --> Replace, continue to monitor # Hypocalcemia --> replete Ca++ prn # Cirrhosis of the liver --> appears chronic # Dvt ppx with ambul, scds The timing of this note does not necessarily reflect the time of the patient was seen. GREATLY APPRECIATE CONSULTATION. Subjective Constitutional: Denies: no symptoms, chills, fever, malaise, weakness, other HEENT: Denies: no symptoms, eye pain, blurred vision, tearing, double vision, ear pain, ear discharge, nose pain, nose congestion, throat pain, throat swelling, mouth pain, mouth swelling, other Cardiovascular: Denies: no symptoms, chest pain, edema, irregular heart rate, lightheadedness, palpitations, syncope, other Respiratory: Denies: no symptoms, cough, shortness of breath, SOB with excertion, SOB at rest, sputum, wheezing, other Gastrointestinal/Abdominal: Denies: no symptoms, abdomen distended, abdominal pain, black stools, tarry stools, blood in stool, constipated, diarrhea, difficulty swallowing, nausea, poor appetite, poor fluid intake, rectal bleeding , vomiting, other Genitourinary: Denies: no symptoms, burning, discharge, frequency, flank pain, hematuria, incontinence, pain, urgency, other Neurologic/Psychiatric: Denies: no symptoms, anxiety, depressed, emotional problems, headache, numbness, paresthesia, pre-existing deficit, seizure, tingling, tremors, weakness, other Endocrine: Denies: no symptoms, excessive sweating, flushing, intolerance to cold, intolerance to heat, increased hunger, increased thirst, increased urine, unexplained weight gain, unexplained weight loss, other Hematologic/Lymphatic: Denies: no symptoms, anemia, easy bleeding, easy bruising, adenopathy, other Allergies: Coded Allergies: No Known Allergies (Unverified , 07/03/19) Subjective 07/05: no fevers, chills or night sweats noted, on iv iron has been started, on benzo 07/07: extremely agitated overnight, climbin out of bed, on cristina taper, h/h low 07/08: remains on abx, no f/c, no bleeding is noted, no changes 07/09: paracentesis negative for malignant cells, cxr and labs reviewed 07/10: no acute distress, still drowsy, has been attempting to get out of bed 07/11: transferred [facility], stool ob negative, h/h stable 07/12: imaging reviewed, on abx, us paracentesis, no distress 07/13: remains on librium, plt 85, hgb 8.5, no f/c, no night sweats 07/15: no bleeding, pt/ptt elevated, given vit K, no f/c, no chills noted 07/16: for repeat paracentesis, no f/c, no bleeding 07/17: us paracentesis, vs stable, no f/c, denies any pain, on abx, med reviewed 07/18: remains on ancef for now 14d as per id, no bleeding reported, no f/c 07/19: on abx, no f/c, vs stable, no sob, no acute distress, imaging reviewed 07/20: electrolytes repleted, no f/c, confused still 07/22: no events, no bleeding, labs have been reviewed, remains confused Objective Objective Current Medications Medications (Trade) Dose Ordered Sig/Tanja Route PRN Reason Start Time Stop Time Status Last Admin Dose Admin Cephalexin (Keflex) 500 mg Q6HR ORAL 07/21/19 18:00 07/28/19 17:59 07/22/19 13:08 Dextrose 1,000 ml @ 100 mls/hr Q10H IV 07/19/19 21:15 08/13/19 16:44 07/22/19 10:15 Folic Acid (Folate) 1 mg DAILY ORAL 07/20/19 09:00 08/03/19 10:29 07/22/19 10:27 Lactulose (Cephulac) 20 gm THREE TIMES A DAY ORAL 07/20/19 09:00 08/04/19 12:59 07/22/19 10:16 Pantoprazole (Protonix) 40 mg Q12HR IVP 07/20/19 09:00 08/16/19 20:59 07/22/19 10:17 Potassium Chloride (K-Dur) 40 meq DAILY ORAL 07/20/19 09:00 08/15/19 08:59 07/22/19 10:16 Thiamine HCl (Vitamin B1) 100 mg DAILY ORAL 07/20/19 09:00 08/03/19 10:29 07/22/19 10:16 Last 24 Hour Vital Signs Date Time Temp Pulse Resp B/P (MAP) Pulse Ox O2 Delivery O2 Flow Rate FiO2 07/22/19 12:00 98.8 106 18 120/79 (93) 99 07/22/19 09:00 Room Air 07/22/19 08:00 98.9 92 17 119/78 (92) 96 07/22/19 04:00 97.8 111 20 129/77 (94) 98 07/22/19 00:00 98.9 105 20 117/52 (73) 99 07/21/19 21:00 Room Air 07/21/19 20:00 98.4 76 20 113/65 (81) 97 07/21/19 16:00 98.0 79 18 121/76 (91) 97 07/21/19 12:00 97.7 83 20 118/78 (91) 98 07/21/19 09:00 Room Air 07/21/19 08:00 97.5 87 22 102/79 (87) 96 07/21/19 04:00 97.8 90 19 112/71 (85) 98 07/21/19 00:00 98.8 59 19 112/74 (87) 96 07/20/19 21:00 Room Air 07/20/19 20:00 97.9 89 19 105/64 (78) 95 Intake and Output 07/21/19 07/22/19 19:00 07:00 Intake Total 1655 ml 900 ml Balance 1655 ml 900 ml IV Total 855 ml 900 ml Other 800 ml # Voids 1 # Bowel Movements 2 Labs Test 07/20/19 05:20 07/22/19 15:25 Sodium Level 140 MMOL/L (136-145) Potassium Level 3.8 MMOL/L (3.5-5.1) Chloride Level 111 MMOL/L (98-107) Carbon Dioxide Level 25 MMOL/L (21-32) Anion Gap 4 mmol/L (5-15) Blood Urea Nitrogen 9 mg/dL (7-18) Creatinine 1.1 MG/DL (0.55-1.30) Estimat Glomerular Filtration Rate > 60 mL/min (>60) Glucose Level 98 MG/DL (74-106) Calcium Level 8.3 MG/DL (8.5-10.1) Magnesium Level 1.5 MG/DL (1.8-2.4) Height (Feet): 5 Height (Inches): 8.00 Weight (Pounds): 150 Objective Physical Exam: Vitals: reviewed General Appearance: NAD HEENT: normocephalic, atraumatic Neck: non-tender, normal alignment Respiratory/Chest: normal breath sounds bilaterally Cardiovascular/Chest: normal peripheral pulses, normal rate Abdomen: normal bowel sounds, soft, nontender +++ ascites Avery Guo MD Jul 22, 2019 16:03
--- NOTE | 2019-07-22 19:06 | NUR ---
HAND-OFF: Report given to JOSEFINA Johnson.
--- NOTE | 2019-07-22 19:54 | NUR ---
NURSE NOTES: RECEIVED PT FROM JOSEFINA PÉREZ. PT IS ASLEEP, ON ROOM AIR, NO ACUTE DISTRESS NOTED. PT IS ON BILATERAL SOFT WRIST RESTRAINTS, NO REDNESS OR SWELLING NOTED AT RESTRAINT SITES. IV ON RIGHT AC 22G IS INTACT AND PATENT. CONDOM CATH IS ON AND DRAINING WELL. BED IS LOCKED AT THE LOWEST POSITION, BED ALARMS ACTIVE, SIDE RAILS UP X2 AND CALL LIGHT IS WITHIN REACH. WILL CONTINUE TO MONITOR.
[2019-07-22 20:00] VITALS: BP 105/66
[2019-07-23] VITALS: BP 106/67
[2019-07-23] MEDS: Cephalexin 500mg cap ORAL SCH ×6 (01:12→23:19)
[2019-07-23 04:00] VITALS: BP 108/73
--- NOTE | 2019-07-23 07:42 | NUR ---
HAND-OFF: Report given to JOSEFINA MANRIQUEZ.
--- NOTE | 2019-07-23 07:45 | NUR ---
NURSE NOTES: Received patient from Leila, Rn. Patient is awake in bed. B/L soft wrist restraints in place. Patient denies pain or discomfort. Safety precautions in place. Left arm IV intact. Will anticipate needs and monitor patient throughout this shift..
[2019-07-23 08:00] VITALS: BP 154/81
[2019-07-23] MEDS: Lactulose 20gm/30ml UDC ORAL SCH ×3 (09:12→17:59)
[2019-07-23] MEDS: Pantoprazole Inj IVP SCH ×2 (09:12→21:00)
[2019-07-23] MEDS: Thiamine 100mg tab ORAL SCH (09:12)
--- NOTE | 2019-07-23 09:26 | NUR ---
Social Service Note Patient continues to require medical intervention. Patient ammonia level is decreasing however patient continue to be confused alert times one/two. Patient in restraints. Review of PT notes indicate patient is max assistance. Patient with no insurance for placement and currently not appropriate for homeless placement. Will continue to monitor and assist. Addendum: 07/23/19 at 1148 by KAIN HADLEY Social Service Note Palliative Care consult completed. Patient meets the criteria for hospice. [facility] will be notified to assist in expediting medi-tulio. Will continue to follow up.
--- NOTE | 2019-07-23 11:07 | Consultation ---
History of Present Illness General Date patient seen: Jul 23, 2019 Chief Complaint: Alcohol Intoxication Reason for Consultation: palliative consult Present Illness HPI 48 year old male with hx of ETOH abuse admitted 20 days ago with ETOH intoxication. His Ammonia level were increased on admission and decreased with Lactulose but his mental status didn't improve. I was asked to evaluate him for hospice eligibility. Allergies: Coded Allergies: No Known Allergies (Unverified , 07/03/19) Medication History Scheduled No Known Medications* (NKM - No Known Medications*), 0 ., (Reported) Patient History Healthcare decision maker Resuscitation status Full Code Advanced Directive on File Yes Past Medical/Surgical History Past Medical/Surgical History: (1) Ascites (2) Cirrhosis Review of Systems All Other Systems: negative except mentioned in HPI Physical Exam General Appearance: confused Lines, tubes and drains: peripheral HEENT: normocephalic, atraumatic Neck: non-tender, normal alignment Respiratory/Chest: chest wall non-tender, lungs clear Breasts: no masses Cardiovascular/Chest: normal peripheral pulses Abdomen: normal bowel sounds, non tender Skin Exam: normal pigmentation Last 24 Hour Vital Signs Date Time Temp Pulse Resp B/P (MAP) Pulse Ox O2 Delivery O2 Flow Rate FiO2 07/23/19 08:00 98.2 95 16 154/81 (105) 95 07/23/19 04:00 98.0 92 18 108/73 (85) 93 07/23/19 00:00 97.7 85 20 106/67 (80) 98 07/22/19 21:00 Room Air 07/22/19 20:00 98.3 90 16 105/66 (79) 94 07/22/19 16:00 98.1 100 19 126/91 (103) 100 07/22/19 12:00 98.8 106 18 120/79 (93) 99 Intake and Output 07/22/19 07/23/19 19:00 07:00 Intake Total 1000 ml 1000 ml Output Total 900 ml Balance 1000 ml 100 ml IV Total 1000 ml 1000 ml Output Urine Total 600 ml Stool Total 300 ml # Voids 3 2 # Bowel Movements 2 Laboratory Tests Test 07/22/19 15:25 Ammonia 21 umol/L (11-32) Height (Feet): 5 Height (Inches): 8.00 Weight (Pounds): 150 Medications Current Medications Medications (Trade) Dose Ordered Sig/Tanja Route PRN Reason Start Time Stop Time Status Last Admin Dose Admin Cephalexin (Keflex) 500 mg Q6HR ORAL 07/21/19 18:00 07/28/19 17:59 07/23/19 06:07 Dextrose 1,000 ml @ 100 mls/hr Q10H IV 07/19/19 21:15 08/13/19 16:44 07/23/19 06:07 Folic Acid (Folate) 1 mg DAILY ORAL 07/20/19 09:00 08/03/19 10:29 07/23/19 09:12 Lactulose (Cephulac) 20 gm THREE TIMES A DAY ORAL 07/20/19 09:00 08/04/19 12:59 07/23/19 09:12 Pantoprazole (Protonix) 40 mg Q12HR IVP 07/20/19 09:00 08/16/19 20:59 07/23/19 09:12 Potassium Chloride (K-Dur) 40 meq DAILY ORAL 07/20/19 09:00 08/15/19 08:59 07/23/19 09:12 Thiamine HCl (Vitamin B1) 100 mg DAILY ORAL 07/20/19 09:00 08/03/19 10:29 07/23/19 09:12 Assessment/Plan Problem List: (1) End stage liver disease ICD Codes: K72.90 - Hepatic failure, unspecified without coma SNOMED: 483728187 (2) Coagulopathy ICD Codes: D68.9 - Coagulation defect, unspecified SNOMED: 06814259 (3) Hepatic encephalopathy ICD Codes: K72.90 - Hepatic failure, unspecified without coma SNOMED: 25642073 Assessment/Plan: Patient meeds medicare criteria hospice benefits, including Albumin less than 2.5, INR more than 2.5, encephalopathy, recurrent ascites. I will talk to long term care social worker to expedite Medical application because of pts end stage condition. Ronnell Card MD Jul 23, 2019 11:07
--- NOTE | 2019-07-23 11:14 | Hematology/Onc Progress Note ---
Assessment/Plan Assessment/Plan ASSESSMENT AND RECS # Anemia of iron deficiency in addition to suppression from etoh abuse and cirrhosis of liver, ETOH --> Anemia workup has been ordered, rule out gi bleed --> aid noted --> No evidence of hemolysis is noted, peripheral smear has been reviewed. --> Hgb goal >7. Transfuse prn. --> Hgb trend: 4.2-->7.1-->7.6 --> 7.6-->7.7-->8.9-->9.1-->8.9-->8.5->8.8-->8.9 --> IRON IV 200mg ordered x 1dose (given) --> Medications have been reviewed --> stool ob negative --> bone marrow biopsy is not indicated given the other more likely causes # Thrombocytopenia - secondary to liver cirrhosis --> Hep panel and HIV ordered - both negative --> US abd to evaluate for cirrhosis and hsm ordered - Hepatic surface nodularity, suggestive of cirrhosis. Ascites --> Peripheral smear ordered to evaluate for blasts /schistocytes and none significant noted --> abx and other meds have been reviewed --> ok for ppx if plt >50k w/ either heparin or lovenox --> Transfuse if Plt < 20k and fever, or if Plt < 10k without fever --> plt trend 90-->92k-->82-->92k-->85k-->104k-->122k # Coagulopathy due to liver cirrhosis secondary to Etoh --> GI is following, appreciate recs --> Abdominal ultrasound reviewed --> Supportive care --> lactulose prophylactic --> vit K on prn basis 07/15 # Substance abuse --> psych eval # Hypokalemia --> Replace, continue to monitor # Hypocalcemia --> replete Ca++ prn # Cirrhosis of the liver --> appears chronic # Dvt ppx with ambul, scds The timing of this note does not necessarily reflect the time of the patient was seen. GREATLY APPRECIATE CONSULTATION. Subjective Allergies: Coded Allergies: No Known Allergies (Unverified , 07/03/19) Subjective 07/05: no fevers, chills or night sweats noted, on iv iron has been started, on benzo 07/07: extremely agitated overnight, climbin out of bed, on cristina taper, h/h low 07/08: remains on abx, no f/c, no bleeding is noted, no changes 07/09: paracentesis negative for malignant cells, cxr and labs reviewed 07/10: no acute distress, still drowsy, has been attempting to get out of bed 07/11: transferred [facility], stool ob negative, h/h stable 07/12: imaging reviewed, on abx, us paracentesis, no distress 07/13: remains on librium, plt 85, hgb 8.5, no f/c, no night sweats 07/15: no bleeding, pt/ptt elevated, given vit K, no f/c, no chills noted 07/16: for repeat paracentesis, no f/c, no bleeding 07/17: us paracentesis, vs stable, no f/c, denies any pain, on abx, med reviewed 07/18: remains on ancef for now 14d as per id, no bleeding reported, no f/c 07/19: on abx, no f/c, vs stable, no sob, no acute distress, imaging reviewed 07/20: electrolytes repleted, no f/c, confused still 07/22: no events, no bleeding, labs have been reviewed, remains confused 07/23: no f/c, confused, on restraints, denies pain or comfort, on cephalexin Objective Objective Current Medications Medications (Trade) Dose Ordered Sig/Tanja Route PRN Reason Start Time Stop Time Status Last Admin Dose Admin Cephalexin (Keflex) 500 mg Q6HR ORAL 07/21/19 18:00 07/28/19 17:59 07/23/19 06:07 Dextrose 1,000 ml @ 100 mls/hr Q10H IV 07/19/19 21:15 08/13/19 16:44 07/23/19 06:07 Folic Acid (Folate) 1 mg DAILY ORAL 07/20/19 09:00 08/03/19 10:29 07/23/19 09:12 Lactulose (Cephulac) 20 gm THREE TIMES A DAY ORAL 07/20/19 09:00 08/04/19 12:59 07/23/19 09:12 Pantoprazole (Protonix) 40 mg Q12HR IVP 07/20/19 09:00 08/16/19 20:59 07/23/19 09:12 Potassium Chloride (K-Dur) 40 meq DAILY ORAL 07/20/19 09:00 08/15/19 08:59 07/23/19 09:12 Thiamine HCl (Vitamin B1) 100 mg DAILY ORAL 07/20/19 09:00 08/03/19 10:29 07/23/19 09:12 Last 24 Hour Vital Signs Date Time Temp Pulse Resp B/P (MAP) Pulse Ox O2 Delivery O2 Flow Rate FiO2 07/23/19 09:00 Room Air 07/23/19 08:00 98.2 95 16 154/81 (105) 95 07/23/19 04:00 98.0 92 18 108/73 (85) 93 07/23/19 00:00 97.7 85 20 106/67 (80) 98 07/22/19 21:00 Room Air 07/22/19 20:00 98.3 90 16 105/66 (79) 94 07/22/19 16:00 98.1 100 19 126/91 (103) 100 07/22/19 12:00 98.8 106 18 120/79 (93) 99 07/22/19 09:00 Room Air 07/22/19 08:00 98.9 92 17 119/78 (92) 96 07/22/19 04:00 97.8 111 20 129/77 (94) 98 07/22/19 00:00 98.9 105 20 117/52 (73) 99 07/21/19 21:00 Room Air 07/21/19 20:00 98.4 76 20 113/65 (81) 97 07/21/19 16:00 98.0 79 18 121/76 (91) 97 07/21/19 12:00 97.7 83 20 118/78 (91) 98 Intake and Output 07/22/19 07/23/19 19:00 07:00 Intake Total 1000 ml 1000 ml Output Total 900 ml Balance 1000 ml 100 ml IV Total 1000 ml 1000 ml Output Urine Total 600 ml Stool Total 300 ml # Voids 3 2 # Bowel Movements 2 Labs Test 07/22/19 15:25 Ammonia 21 umol/L (11-32) Height (Feet): 5 Height (Inches): 8.00 Weight (Pounds): 150 Objective Physical Exam: Vitals: reviewed General Appearance: NAD HEENT: normocephalic, atraumatic Neck: non-tender, normal alignment Respiratory/Chest: normal breath sounds bilaterally Cardiovascular/Chest: normal peripheral pulses, normal rate Abdomen: normal bowel sounds, soft, nontender +++ ascites Avery Guo MD Jul 23, 2019 11:14
[2019-07-23 12:00] VITALS: BP 129/72
--- NOTE | 2019-07-23 12:11 | Surgery Progress Note ---
Surgery Progress Note Subjective Additional Comments no acute events comfortable stable exam unchanged. Objective Last 24 Hour Vital Signs Date Time Temp Pulse Resp B/P (MAP) Pulse Ox O2 Delivery O2 Flow Rate FiO2 07/23/19 09:00 Room Air 07/23/19 08:00 98.2 95 16 154/81 (105) 95 07/23/19 04:00 98.0 92 18 108/73 (85) 93 07/23/19 00:00 97.7 85 20 106/67 (80) 98 07/22/19 21:00 Room Air 07/22/19 20:00 98.3 90 16 105/66 (79) 94 07/22/19 16:00 98.1 100 19 126/91 (103) 100 I&O Intake and Output 07/22/19 07/23/19 19:00 07:00 Intake Total 1000 ml 1000 ml Output Total 900 ml Balance 1000 ml 100 ml IV Total 1000 ml 1000 ml Output Urine Total 600 ml Stool Total 300 ml # Voids 3 2 # Bowel Movements 2 Cardiovascular: RSR Respiratory: clear Abdomen: soft, non-tender, present bowel sounds Extremities: no cyanosis Laboratory Tests Test 07/22/19 15:25 Ammonia 21 umol/L (11-32) Plan Problems: (1) Abdominal distension Assessment & Plan: Abdominal distention from ascites as he has significant liver dysfunction para with 8L fluid without malignant cells micro with bacteremia labs stable and improving . exam stable more awake and responsive Findings: There is ascites fluid present. Gallbladder is unremarkable, without stones, wall thickening, nor pericholecystic fluid. Sonographic Washington's sign is negative. Common bile duct measures 3 mm in diameter. No intrahepatic biliary ductal dilatation. Liver demonstrates slightly increased echogenicity. No focal abnormality. It demonstrates surface nodularity. Portal vein and hepatic veins are patent. Pancreas is obscured by bowel gas. Spleen is unremarkable. Left kidney measures 11.4 cm in length. Right kidney measures 11.1 cm length. Both kidneys demonstrate normal echogenicity. There is no hydronephrosis. No focal abnormality . Abdominal aorta is partially obscured by bowel gas, visualized portions are non-aneurysmal . Impression: Hepatic surface nodularity, suggestive of cirrhosis. Ascites Negative for gallstones or dilated bile ducts (2) Facial trauma Assessment & Plan: Findings: No acute intracranial hemorrhage or edema. No mass effect or midline shift. Normal hardy-white differentiation. Slightly prominent for age ventricles and extra axial CSF spaces. Mild periventricular deep white matter low-attenuation consistent with chronic microvascular ischemic changes noted Questionable minimal left supraorbital scalp contusion. Intact calvarium. Visualized orbits and sinuses are unremarkable. The mastoids are clear. unknown if fall or assault lip with dry blood and in medial aspect small oozing - resolved apply dressing prn thank you Alvin James Jul 23, 2019 12:11
--- NOTE | 2019-07-23 12:22 | General Progress Note ---
Assessment/Plan Status: stable, unchanged Assessment/Plan: 48-year-old male with past medical history of ETOH abuse presented found down. Overall improving s/p paracentesis 07/16/19 #Encephalopathy likely multifactorial including hepatic encephalopathy ( elevated ammonia), as well as sepsis with bacteremia due to MSSA. #Sepsis secondary to bacteremia due to MSSA -s/p vancomycin and Zosyn (07/06), now cefazolin per ID recs. Keflex for 2 weeks started 07/21/19 -Repeat blood cultures are negative -Infectious disease consult, appreciate recs -Palliative care consult #Hypernatremia- resolved encourage PO intake # Lice - primerin treatment - Ordered to clip hair as persistent lice noted despite 2 shampoo treatment #Liver cirrhosis secondary to EtOH # ETOH withdrawal. Discontinue Libirum - DF 31 -MELD 15 on admission -Abdominal ultrasound reviewed -Status post paracentesis 07/05/2019 with removal of 8 L. -Albumin for BP support as needed -Supportive care - lactulose OK - Repeat paracentesis 07/16. Recheck INR, VIT K and ffp as needed check ammonia #Anemia, likely might multifactorial including acute blood loss anemia, anemia of chronic disease -Hematology consult, appreciate recs -Iron panel: Reviewed -Low folate: Replace -B12 within normal limits above 800 -GI consult, appreciate recs. HOLD OFF NGT for now due to risk with possible esophageal varices. PENDING EGD per GI decision. Patient is gradually waking up and eating is still a problem. MONITOR closely as he is now 9 days into the Hospital stay. #Thrombocytopenia -due to cirrhosis- stable #Substance abuse -Nodular liver in ultrasound suggestive of cirrhosis -Check hepatitis and HIV: hiv neg, hepatitis panel negative -Social work Consult - Psyche consult, appreciate recs #Hypokalemia Replace as needed, will replace today # Hypomagnesemia Replace today # Hypocalcemia - replace as needed #Dysphagia -Etiology due to agitation, likely due underlying hepatic encephalopathy vs side effect of Ativan #full code # Disposition SW and CM follow up needed. Homeless. ?hospice. palliative care consult The time of my note may not reflect the time of my patient encounter. I spent 40 minutes on this encounter, greater than 50 percent in counseling and care coordination Subjective Date patient seen: Jul 23, 2019 ROS Limited/Unobtainable: Yes Allergies: Coded Allergies: No Known Allergies (Unverified , 07/03/19) Subjective seen and examined awake calm mental status waxing and waning on oral antibiotics Objective Last 24 Hour Vital Signs Date Time Temp Pulse Resp B/P (MAP) Pulse Ox O2 Delivery O2 Flow Rate FiO2 07/23/19 09:00 Room Air 07/23/19 08:00 98.2 95 16 154/81 (105) 95 07/23/19 04:00 98.0 92 18 108/73 (85) 93 07/23/19 00:00 97.7 85 20 106/67 (80) 98 07/22/19 21:00 Room Air 07/22/19 20:00 98.3 90 16 105/66 (79) 94 07/22/19 16:00 98.1 100 19 126/91 (103) 100 Intake and Output 07/22/19 07/23/19 19:00 07:00 Intake Total 1000 ml 1000 ml Output Total 900 ml Balance 1000 ml 100 ml IV Total 1000 ml 1000 ml Output Urine Total 600 ml Stool Total 300 ml # Voids 3 2 # Bowel Movements 2 Laboratory Tests 07/22/19 15:25: Ammonia 21 Height (Feet): 5 Height (Inches): 8.00 Weight (Pounds): 150 Objective General Appearance: moderate agitation EENT: PERRL/EOMI, normal ENT inspection Cardiovascular: normal rate Respiratory/Chest: lungs clear Abdomen: distended, hepatomegaly Edema: trace edema Neurologic: manager completions II-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 Jul 23, 2019 12:22
--- NOTE | 2019-07-23 13:14 | NUR ---
RD ASSESSMENT & RECOMMENDATIONS SEE CARE ACTIVITY FOR COMPLETE ASSESSMENT DAILY ESTIMATED NEEDS: Needs based on Cirrhosis/ 60kg abw 25-30 kcals/kg 5131-5364 total kcals 1-1.5 g protein/kg 60-90 g total protein 25-30 mL/kg 1464-4239 total fluid mLs NUTRITION DIAGNOSIS: * Altered nutrition related lab values R/T cirrhosis, h/o ETOH abuse, clinical condition as evidenced by elev AST and T bili (1.4), elev NH3 (52 -> now wnl), low K (3.0-> wnl), low mag (1.5), low folate (5.1) * Swallowing difficulty R/T dysphagia, confusion, encephalopathy as evidenced by pt on pureed moist texture w/ NTL, w/ poor and variable PO intake. CURRENT DIET:Cardiac, pureed moist w/ NTL + ensure TID PO DIET RECOMMENDATIONS: Liberalize diet to LOW NA/ texture per [employer] ADDITIONAL RECOMMENDATIONS: * Calibrated bedscale wt for accurate CBW * [employer] re-eval for possible texture upgrade * Maintain Ensure Enlive TID w/ meals * Monitor BG for hypoglycemia/ rec pm snack * Add MVI x 1 * Monitor lytes daily, replete as needed- check updated mag level * Rec appetite stimulant
--- NOTE | 2019-07-23 14:57 | NUR ---
[employer] SI: ETOH INTOXICATION T. 98.2 HR 95 RR 17 B/P 154/87 IS: IVF D5 @ 100ML/HR THIAMINE IV PROTONIX IV KEFLEX PO PALLIATIVE CONSULT MED/SURG STATUS
--- NOTE | 2019-07-23 15:07 | NUR ---
HAND-OFF: Report given to Kiran Tan. Patient stable. Plan of care endorsed.
[2019-07-23 16:00] VITALS: BP 114/55
--- NOTE | 2019-07-23 19:13 | NUR ---
HAND-OFF: Report given to Justa ROCHA.
[2019-07-23 20:00] VITALS: BP 134/81
--- NOTE | 2019-07-23 20:02 | NUR ---
NURSE NOTES: Received patient awake,resting in bed, on bilateral soft wrist restraints.
[2019-07-24] VITALS: BP 138/84
[2019-07-24 04:00] VITALS: BP 107/61
[2019-07-24] MEDS: Cephalexin 500mg cap ORAL SCH ×5 (06:00→23:53)
--- NOTE | 2019-07-24 07:12 | NUR ---
HAND-OFF: Report given to Oscar Birmingham RN.
--- NOTE | 2019-07-24 07:15 | NUR ---
NURSE NOTES: Received pt in bed, AAOx2. Bulgarian speaking. Room air. No c/o of pain/distress. IV noted on R FA and R AC, intact and patent running D5W @ 100 ml. Side rails padded for seizure precaution. Bilateral restraints noted. Pulse present and no edema. Bed in the lowest, locked, and alarm on. Call light within reach. Will continue to monitor
[2019-07-24 08:00] VITALS: BP 128/73
[2019-07-24] MEDS: Thiamine 100mg tab ORAL SCH (08:42)
[2019-07-24] MEDS: Pantoprazole Inj IVP SCH ×2 (08:42→20:23)
[2019-07-24] MEDS: Lactulose 20gm/30ml UDC ORAL SCH ×3 (08:42→17:56)
[2019-07-24] MEDS: LORazepam Inj 2mg/ml 1ml IV PRN (10:49)
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
[2019-07-24 12:00] VITALS: BP 101/60
--- NOTE | 2019-07-24 12:26 | Pulmonology Progress Note ---
Assessment/Plan Problems: (1) End stage liver disease (2) Coagulopathy (3) Hepatic encephalopathy Assessment/Plan dc iv fluids symptomatic treatment Medical application in process. [facility] informed [facility] accepted. awaiting placement. Subjective ROS Limited/Unobtainable: Yes Interval Events: awake, confused Allergies: Coded Allergies: No Known Allergies (Unverified , 07/03/19) Objective Last 24 Hour Vital Signs Date Time Temp Pulse Resp B/P (MAP) Pulse Ox O2 Delivery O2 Flow Rate FiO2 07/24/19 09:00 Room Air 07/24/19 08:00 97.1 89 17 128/73 (91) 97 07/24/19 04:00 98.6 88 18 107/61 (76) 96 07/24/19 00:00 98.5 95 18 138/84 (102) 97 07/23/19 20:18 Room Air 07/23/19 20:00 98.9 91 17 134/81 (98) 97 07/23/19 16:00 98.4 99 16 114/55 (74) 100 Intake and Output 07/23/19 07/24/19 19:00 07:00 Intake Total 230 ml 1340 ml Balance 230 ml 1340 ml Intake Oral 30 ml 240 ml IV Total 200 ml 1100 ml # Voids 3 2 # Bowel Movements 1 2 General Appearance: WD/WN HEENT: normocephalic, mucous membranes moist Respiratory/Chest: chest wall non-tender, no accessory muscle use Cardiovascular: no JVD Abdomen: non distended Extremities: no cyanosis Skin: no lesions Current Medications Medications (Trade) Dose Ordered Sig/Tanja Route PRN Reason Start Time Stop Time Status Last Admin Dose Admin Cephalexin (Keflex) 500 mg Q6HR ORAL 07/21/19 18:00 07/28/19 17:59 07/24/19 06:00 Dextrose 1,000 ml @ 100 mls/hr Q10H IV 07/19/19 21:15 08/13/19 16:44 07/24/19 10:48 Folic Acid (Folate) 1 mg DAILY ORAL 07/20/19 09:00 08/03/19 10:29 07/24/19 08:42 Lactulose (Cephulac) 20 gm THREE TIMES A DAY ORAL 07/20/19 09:00 08/04/19 12:59 07/24/19 08:42 Lorazepam (Ativan 2mg/ml 1ml) 0.5 mg Q4H PRN IV For Anxiety 07/24/19 10:30 07/31/19 10:29 07/24/19 10:49 Pantoprazole (Protonix) 40 mg Q12HR IVP 07/20/19 09:00 08/16/19 20:59 07/24/19 08:42 Potassium Chloride (K-Dur) 40 meq DAILY ORAL 07/20/19 09:00 08/15/19 08:59 07/24/19 08:42 Thiamine HCl (Vitamin B1) 100 mg DAILY ORAL 07/20/19 09:00 08/03/19 10:29 07/24/19 08:42 Ronnell Card MD Jul 24, 2019 12:26
--- NOTE | 2019-07-24 14:08 | NUR ---
NURSE NOTES: 72 hours renewal for restraints due 07/23. Order not entered. New order received and entered.
--- NOTE | 2019-07-24 14:17 | NUR ---
WEEKLY SWALLOW AND SPEECH THERAPY SUMMARY: PATIENT SEEN FOR DYSPHAGIA, SEE SWALLOW EVAL. GOALS NOT MET FOR INTAKE BELOW 50% ON PUREED AND NECTAR THICK LIQUID DIET GOALS MET FOR STAFF EDUCATED/TRAINED IN POSTED PRECAUTIONS UNABLE TO COMPLETE MOD BARIUM SWALLOW STUDY DUE TO SCHEDULING CONFLICTS. PLAN: CONTINUE WITH SKILLED SWALLOW MANAGEMENT AND TX (SEE SWALLOW EVAL GOALS) COMPLETE MOD BARIUM SWALLOW STUDY IP OR OP IF DC (DO NOT HOLD UP D/C FOR THIS STUDY) CONTINUE WITH CURRENT DIET/LIQUIDS USING POSTED PRECAUTIONS
--- NOTE | 2019-07-24 14:24 | General Progress Note ---
Assessment/Plan Status: stable, unchanged Assessment/Plan: 48-year-old male with past medical history of ETOH abuse presented found down. Overall improving s/p paracentesis 07/16/19 #Encephalopathy likely multifactorial including hepatic encephalopathy ( elevated ammonia), as well as sepsis with bacteremia due to MSSA. #Sepsis secondary to bacteremia due to MSSA -s/p vancomycin and Zosyn (07/06), now cefazolin per ID recs. Keflex for 2 weeks started 07/21/19 -Repeat blood cultures are negative -Infectious disease consult, appreciate recs -Palliative care consult appreciated. Medical application in process. [facility] informed and accepted #Hypernatremia- resolved encourage PO intake # Lice - primerin treatment - Ordered to clip hair as persistent lice noted despite 2 shampoo treatment #Liver cirrhosis secondary to EtOH # ETOH withdrawal. Discontinue Libirum - DF 31 -MELD 15 on admission -Abdominal ultrasound reviewed -Status post paracentesis 07/05/2019 with removal of 8 L. -Albumin for BP support as needed -Supportive care - lactulose IN - Repeat paracentesis 07/16. Recheck INR, VIT K and ffp as needed check ammonia #Anemia, likely might multifactorial including acute blood loss anemia, anemia of chronic disease -Hematology consult, appreciate recs -Iron panel: Reviewed -Low folate: Replace -B12 within normal limits above 800 -GI consult, appreciate recs. HOLD OFF NGT for now due to risk with possible esophageal varices. PENDING EGD per GI decision. Patient is gradually waking up and eating is still a problem. MONITOR closely as he is now 9 days into the Hospital stay. #Thrombocytopenia -due to cirrhosis- stable #Substance abuse -Nodular liver in ultrasound suggestive of cirrhosis -Check hepatitis and HIV: hiv neg, hepatitis panel negative -Social work Consult - Psyche consult, appreciate recs #Hypokalemia Replace as needed, will replace today # Hypomagnesemia Replace today # Hypocalcemia - replace as needed #Dysphagia -Etiology due to agitation, likely due underlying hepatic encephalopathy vs side effect of Ativan #full code # Disposition SW and CM follow up needed. Homeless. ?hospice. palliative care consult The time of my note may not reflect the time of my patient encounter. I spent 40 minutes on this encounter, greater than 50 percent in counseling and care coordination Subjective Date patient seen: Jul 24, 2019 ROS Limited/Unobtainable: Yes Allergies: Coded Allergies: No Known Allergies (Unverified , 07/03/19) Subjective seen and examined awake calm mental status waxing and waning on oral antibiotics ROS unable to obtain due to mental status Objective Last 24 Hour Vital Signs Date Time Temp Pulse Resp B/P (MAP) Pulse Ox O2 Delivery O2 Flow Rate FiO2 07/24/19 12:00 99.5 80 20 101/60 (74) 95 07/24/19 09:00 Room Air 07/24/19 08:00 97.1 89 17 128/73 (91) 97 07/24/19 04:00 98.6 88 18 107/61 (76) 96 07/24/19 00:00 98.5 95 18 138/84 (102) 97 07/23/19 20:18 Room Air 07/23/19 20:00 98.9 91 17 134/81 (98) 97 07/23/19 16:00 98.4 99 16 114/55 (74) 100 Intake and Output 07/23/19 07/24/19 19:00 07:00 Intake Total 230 ml 1340 ml Balance 230 ml 1340 ml Intake Oral 30 ml 240 ml IV Total 200 ml 1100 ml # Voids 3 2 # Bowel Movements 1 2 Height (Feet): 5 Height (Inches): 8.00 Weight (Pounds): 154 Objective General Appearance: moderate agitation EENT: PERRL/EOMI, normal ENT inspection Cardiovascular: normal rate Respiratory/Chest: lungs clear Abdomen: distended, hepatomegaly Edema: trace edema Neurologic: washcloth folder II-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 Jul 24, 2019 14:24
--- NOTE | 2019-07-24 15:46 | Hematology/Onc Progress Note ---
Assessment/Plan Assessment/Plan ASSESSMENT AND RECS # Anemia of iron deficiency in addition to suppression from etoh abuse and cirrhosis of liver, ETOH --> Anemia workup has been ordered, rule out gi bleed --> aid noted --> No evidence of hemolysis is noted, peripheral smear has been reviewed. --> Hgb goal >7. Transfuse prn. --> Hgb trend: 4.2-->7.1-->7.6 --> 7.6-->7.7-->8.9-->9.1-->8.9-->8.5->8.8-->8.9 --> IRON IV 200mg ordered x 1dose (given) --> Medications have been reviewed --> stool ob negative # Thrombocytopenia - secondary to liver cirrhosis and etoh use --> Hep panel and HIV - both negative --> US abd to evaluate for cirrhosis and hsm ordered - Hepatic surface nodularity, suggestive of cirrhosis. Ascites --> Peripheral smear ordered to evaluate for blasts /schistocytes and none significant noted --> abx and other meds have been reviewed --> ok for ppx if plt >50k w/ either heparin or lovenox --> Transfuse if Plt < 20k and fever, or if Plt < 10k without fever --> plt trend 90-->92k-->82-->92k-->85k-->104k-->122k # Coagulopathy due to liver cirrhosis secondary to Etoh --> GI is following, appreciate recs --> Abdominal ultrasound reviewed --> Supportive care --> lactulose prophylactic --> vit K on prn basis 07/15 # Substance abuse --> psych eval # Hypokalemia --> Replace, continue to monitor # Hypocalcemia --> replete Ca++ prn # Cirrhosis of the liver --> appears chronic # Dvt ppx with ambul, scds The timing of this note does not necessarily reflect the time of the patient was seen. GREATLY APPRECIATE CONSULTATION. Subjective Constitutional: Denies: no symptoms, chills, fever, malaise, weakness, other Gastrointestinal/Abdominal: Denies: no symptoms, abdomen distended, abdominal pain, black stools, tarry stools, blood in stool, constipated, diarrhea, difficulty swallowing, nausea, poor appetite, poor fluid intake, rectal bleeding , vomiting, other Genitourinary: Denies: no symptoms, burning, discharge, frequency, flank pain, hematuria, incontinence, pain, urgency, other Neurologic/Psychiatric: Denies: no symptoms, anxiety, depressed, emotional problems, headache, numbness, paresthesia, pre-existing deficit, seizure, tingling, tremors, weakness, other Endocrine: Denies: no symptoms, excessive sweating, flushing, intolerance to cold, intolerance to heat, increased hunger, increased thirst, increased urine, unexplained weight gain, unexplained weight loss, other Hematologic/Lymphatic: Denies: no symptoms, anemia, easy bleeding, easy bruising, adenopathy, other Allergies: Coded Allergies: No Known Allergies (Unverified , 07/03/19) Subjective 07/05: no fevers, chills or night sweats noted, on iv iron has been started, on benzo 07/07: extremely agitated overnight, climbin out of bed, on cristina taper, h/h low 07/08: remains on abx, no f/c, no bleeding is noted, no changes 07/09: paracentesis negative for malignant cells, cxr and labs reviewed 07/10: no acute distress, still drowsy, has been attempting to get out of bed 07/11: transferred [facility] [place] to [facility], stool ob negative, h/h stable 07/12: imaging reviewed, on abx, us paracentesis, no distress 07/13: remains on librium, plt 85, hgb 8.5, no f/c, no night sweats 07/15: no bleeding, pt/ptt elevated, given vit K, no f/c, no chills noted 07/16: for repeat paracentesis, no f/c, no bleeding 07/17: us paracentesis, vs stable, no f/c, denies any pain, on abx, med reviewed 07/18: remains on ancef for now 14d as per id, no bleeding reported, no f/c 07/19: on abx, no f/c, vs stable, no sob, no acute distress, imaging reviewed 07/20: electrolytes repleted, no f/c, confused still 07/22: no events, no bleeding, labs have been reviewed, remains confused 07/23: no f/c, confused, on restraints, denies pain or comfort, on cephalexin 07/24: remains somewhat confused, on restraints, no bleeding, chills Objective Objective Current Medications Medications (Trade) Dose Ordered Sig/Tanja Route PRN Reason Start Time Stop Time Status Last Admin Dose Admin Cephalexin (Keflex) 500 mg Q6HR ORAL 07/21/19 18:00 08/04/19 19:00 07/24/19 06:00 Folic Acid (Folate) 1 mg DAILY ORAL 07/20/19 09:00 08/03/19 10:29 07/24/19 08:42 Lactulose (Cephulac) 20 gm THREE TIMES A DAY ORAL 07/20/19 09:00 08/04/19 12:59 07/24/19 08:42 Lorazepam (Ativan 2mg/ml 1ml) 0.5 mg Q4H PRN IV For Anxiety 07/24/19 10:30 07/31/19 10:29 07/24/19 10:49 Pantoprazole (Protonix) 40 mg Q12HR IVP 07/20/19 09:00 08/16/19 20:59 07/24/19 08:42 Potassium Chloride (K-Dur) 40 meq DAILY ORAL 07/20/19 09:00 08/15/19 08:59 07/24/19 08:42 Thiamine HCl (Vitamin B1) 100 mg DAILY ORAL 07/20/19 09:00 08/03/19 10:29 07/24/19 08:42 Last 24 Hour Vital Signs Date Time Temp Pulse Resp B/P (MAP) Pulse Ox O2 Delivery O2 Flow Rate FiO2 07/24/19 12:00 99.5 80 20 101/60 (74) 95 07/24/19 09:00 Room Air 07/24/19 08:00 97.1 89 17 128/73 (91) 97 07/24/19 04:00 98.6 88 18 107/61 (76) 96 07/24/19 00:00 98.5 95 18 138/84 (102) 97 07/23/19 20:18 Room Air 07/23/19 20:00 98.9 91 17 134/81 (98) 97 07/23/19 16:00 98.4 99 16 114/55 (74) 100 07/23/19 12:00 98.2 95 17 129/72 (91) 96 07/23/19 09:00 Room Air 07/23/19 08:00 98.2 95 16 154/81 (105) 95 07/23/19 04:00 98.0 92 18 108/73 (85) 93 07/23/19 00:00 97.7 85 20 106/67 (80) 98 07/22/19 21:00 Room Air 07/22/19 20:00 98.3 90 16 105/66 (79) 94 07/22/19 16:00 98.1 100 19 126/91 (103) 100 Intake and Output 07/23/19 07/24/19 19:00 07:00 Intake Total 230 ml 1340 ml Balance 230 ml 1340 ml Intake Oral 30 ml 240 ml IV Total 200 ml 1100 ml # Voids 3 2 # Bowel Movements 1 2 Labs Test 07/22/19 15:25 Ammonia 21 umol/L (11-32) Height (Feet): 5 Height (Inches): 8.00 Weight (Pounds): 154 Objective Physical Exam: Vitals: reviewed General Appearance: NAD HEENT: normocephalic, atraumatic Neck: non-tender, normal alignment Respiratory/Chest: normal breath sounds bilaterally Cardiovascular/Chest: normal peripheral pulses, normal rate Abdomen: normal bowel sounds, soft, nontender +++ ascites Avery Guo MD Jul 24, 2019 15:46
[2019-07-24 16:00] VITALS: BP 108/65
--- NOTE | 2019-07-24 19:25 | NUR ---
HAND-OFF: Report given to JOSEFINA Jaramillo.
--- NOTE | 2019-07-24 19:48 | NUR ---
NURSE NOTES: Received report from JOSEFINA Moore. Patient is in bed and currently asleep. On room air with no signs of distress or SOB. Bilateral soft wrist restrains still in progress. Side rails padded as a seizure precaution. Both IVs intact and patent. Bed locked and in lowest position. Bed alarm on. Call light is in reach. Will continue to monitor the patient.
[2019-07-24 20:00] VITALS: BP 102/66
[2019-07-25] VITALS: BP 113/69
[2019-07-25 04:00] VITALS: BP 109/69
[2019-07-25] MEDS: LORazepam Inj 2mg/ml 1ml IV PRN ×2 (04:47→14:04)
[2019-07-25 05:44] LABS: BASOPHILS % (AUTO) 1.1 % (0.0-2.0); EOSINOPHILS % (AUTO) 2.1 % (0.0-3.0); HEMOGLOBIN 9.2 G/DL (14.2-18.0); LYMPHOCYTES % (AUTO) 15.2 % (20.0-45.0); MEAN CORPUSCULAR VOLUME 92 FL (80-99); NEUTROPHILS % (AUTO) 75.6 % (45.0-75.0); PLATELET COUNT 126 K/UL (150-450); RED BLOOD COUNT 3.26 M/UL (4.70-6.10); RED CELL DISTRIBUTION WIDTH 20.5 % (11.6-14.8); WHITE BLOOD COUNT 11.6 K/UL (4.8-10.8)
[2019-07-25] MEDS: Cephalexin 500mg cap ORAL SCH ×3 (06:00→18:15)
--- NOTE | 2019-07-25 07:48 | NUR ---
HAND-OFF: Report given to JOSEFINA Medina.
[2019-07-25 08:00] VITALS: BP 115/70
--- NOTE | 2019-07-25 08:07 | NUR ---
NURSE NOTES: received report from JOSEFINA Jaramillo. patient in bed. sleeping. breathing even and unlabored. no facial grimacing noted. soft restraints on both wrist. intact. no skin issues. iv on RAC and RFA saline lock. bed in the lowest position. call light within reach. will continue to provide plan of care.
--- NOTE | 2019-07-25 08:13 | Hematology/Onc Progress Note ---
Assessment/Plan Assessment/Plan ASSESSMENT AND RECS # Anemia of iron deficiency in addition to suppression from etoh abuse and cirrhosis of liver, ETOH --> Anemia workup has been ordered, rule out gi bleed --> aid noted --> No evidence of hemolysis is noted, peripheral smear has been reviewed. --> Hgb goal >7. Transfuse prn. --> Hgb trend: 4.2-->7.1-->7.6 --> 7.6-->7.7-->8.9-->9.1-->8.9-->8.5->8.8-->8.9- ->9.2 --> IRON IV 200mg ordered x 1dose (given) --> Medications have been reviewed --> stool ob negative # Thrombocytopenia - secondary to liver cirrhosis and etoh use --> Hep panel and HIV - both negative --> US abd to evaluate for cirrhosis and hsm ordered - Hepatic surface nodularity, suggestive of cirrhosis. Ascites --> Peripheral smear ordered to evaluate for blasts /schistocytes and none significant noted --> abx and other meds have been reviewed --> ok for ppx if plt >50k w/ either heparin or lovenox --> Transfuse if Plt < 20k and fever, or if Plt < 10k without fever --> plt trend 90-->92k-->82-->92k-->85k-->104k-->122k-->126k # Coagulopathy due to liver cirrhosis secondary to Etoh --> GI is following, appreciate recs --> Abdominal ultrasound reviewed --> Supportive care --> lactulose prophylactic --> vit K on prn basis 07/15 # Substance abuse --> psych eval # Hypokalemia --> Replace, continue to monitor # Hypocalcemia --> replete Ca++ prn # Cirrhosis of the liver --> appears chronic # Dvt ppx with ambul, scds The timing of this note does not necessarily reflect the time of the patient was seen. GREATLY APPRECIATE CONSULTATION. Subjective Allergies: Coded Allergies: No Known Allergies (Unverified , 07/03/19) Subjective 07/05: no fevers, chills or night sweats noted, on iv iron has been started, on benzo 07/07: extremely agitated overnight, climbin out of bed, on cristina taper, h/h low 07/08: remains on abx, no f/c, no bleeding is noted, no changes 07/09: paracentesis negative for malignant cells, cxr and labs reviewed 07/10: no acute distress, still drowsy, has been attempting to get out of bed 07/11: transferred [facility] [place] [facility], stool ob negative, h/h stable 07/12: imaging reviewed, on abx, us paracentesis, no distress 07/13: remains on librium, plt 85, hgb 8.5, no f/c, no night sweats 07/15: no bleeding, pt/ptt elevated, given vit K, no f/c, no chills noted 07/16: for repeat paracentesis, no f/c, no bleeding 07/17: us paracentesis, vs stable, no f/c, denies any pain, on abx, med reviewed 07/18: remains on ancef for now 14d as per id, no bleeding reported, no f/c 07/19: on abx, no f/c, vs stable, no sob, no acute distress, imaging reviewed 07/20: electrolytes repleted, no f/c, confused still 07/22: no events, no bleeding, labs have been reviewed, remains confused 07/23: no f/c, confused, on restraints, denies pain or comfort, on cephalexin 07/24: remains somewhat confused, on restraints, no bleeding, chills 07/25: no f/c, on restraints, seizure precaution, on cephalexin, no distress Objective Objective Current Medications Medications (Trade) Dose Ordered Sig/Tanja Route PRN Reason Start Time Stop Time Status Last Admin Dose Admin Cephalexin (Keflex) 500 mg Q6HR ORAL 07/21/19 18:00 08/04/19 19:00 07/24/19 23:53 Folic Acid (Folate) 1 mg DAILY ORAL 07/20/19 09:00 08/03/19 10:29 07/24/19 08:42 Lactulose (Cephulac) 20 gm THREE TIMES A DAY ORAL 07/20/19 09:00 08/04/19 12:59 07/24/19 17:56 Lorazepam (Ativan 2mg/ml 1ml) 0.5 mg Q4H PRN IV For Anxiety 07/24/19 10:30 07/31/19 10:29 07/25/19 04:47 Pantoprazole (Protonix) 40 mg Q12HR IVP 07/20/19 09:00 08/16/19 20:59 07/24/19 20:23 Potassium Chloride (K-Dur) 40 meq DAILY ORAL 07/20/19 09:00 08/15/19 08:59 07/24/19 08:42 Thiamine HCl (Vitamin B1) 100 mg DAILY ORAL 07/20/19 09:00 08/03/19 10:29 07/24/19 08:42 Last 24 Hour Vital Signs Date Time Temp Pulse Resp B/P (MAP) Pulse Ox O2 Delivery O2 Flow Rate FiO2 07/25/19 04:00 98.9 101 19 109/69 (82) 93 07/25/19 00:00 98.4 102 19 113/69 (84) 98 07/24/19 20:50 Room Air 07/24/19 20:00 98.3 96 19 102/66 (78) 96 07/24/19 16:00 98.6 72 19 108/65 (79) 99 07/24/19 12:00 99.5 80 20 101/60 (74) 95 07/24/19 09:00 Room Air 07/24/19 08:00 97.1 89 17 128/73 (91) 97 07/24/19 04:00 98.6 88 18 107/61 (76) 96 07/24/19 00:00 98.5 95 18 138/84 (102) 97 07/23/19 20:18 Room Air 07/23/19 20:00 98.9 91 17 134/81 (98) 97 07/23/19 16:00 98.4 99 16 114/55 (74) 100 07/23/19 12:00 98.2 95 17 129/72 (91) 96 07/23/19 09:00 Room Air Intake and Output 07/24/19 07/25/19 18:59 06:59 Intake Total 236 ml 240 ml Balance 236 ml 240 ml Intake Oral 136 ml 240 ml IV Total 100 ml # Voids 3 # Bowel Movements 7 2 Labs Test 07/22/19 15:25 07/25/19 05:05 Ammonia 21 umol/L (11-32) White Blood Count 11.6 K/UL (4.8-10.8) Red Blood Count 3.26 M/UL (4.70-6.10) Hemoglobin 9.2 G/DL (14.2-18.0) Hematocrit 30.0 % (42.0-52.0) Mean Corpuscular Volume 92 FL (80-99) Mean Corpuscular Hemoglobin 28.4 PG (27.0-31.0) Mean Corpuscular Hemoglobin Concent 30.8 G/DL (32.0-36.0) Red Cell Distribution Width 20.5 % (11.6-14.8) Platelet Count 126 K/UL (150-450) Mean Platelet Volume 6.8 FL (6.5-10.1) Neutrophils (%) (Auto) 75.6 % (45.0-75.0) Lymphocytes (%) (Auto) 15.2 % (20.0-45.0) Monocytes (%) (Auto) 6.0 % (1.0-10.0) Eosinophils (%) (Auto) 2.1 % (0.0-3.0) Basophils (%) (Auto) 1.1 % (0.0-2.0) Height (Feet): 5 Height (Inches): 8.00 Weight (Pounds): 154 Objective Physical Exam: Vitals: reviewed General Appearance: NAD HEENT: normocephalic, atraumatic Neck: non-tender, normal alignment Respiratory/Chest: normal breath sounds bilaterally Cardiovascular/Chest: normal peripheral pulses, normal rate Abdomen: normal bowel sounds, soft, nontender +++ ascites Avery Guo MD Jul 25, 2019 08:13
[2019-07-25] MEDS: Pantoprazole Inj IVP SCH ×2 (09:42→20:18)
[2019-07-25] MEDS: Lactulose 20gm/30ml UDC ORAL SCH ×3 (09:45→18:15)
[2019-07-25] MEDS: Thiamine 100mg tab ORAL SCH (09:45)
--- NOTE | 2019-07-25 10:23 | General Progress Note ---
Assessment/Plan Status: stable, unchanged Assessment/Plan: 48-year-old male with past medical history of ETOH abuse presented found down. Overall improving s/p paracentesis 07/16/19 #Encephalopathy likely multifactorial including hepatic encephalopathy ( elevated ammonia), as well as sepsis with bacteremia due to MSSA. #Sepsis secondary to bacteremia due to MSSA -s/p vancomycin and Zosyn (07/06), now cefazolin per ID recs. Keflex for 2 weeks started 07/21/19 -Repeat blood cultures are negative -Infectious disease consult, appreciate recs -Palliative care consult appreciated. Medical application in process. [facility] informed [facility] accepted #Hypernatremia- resolved encourage PO intake # Lice - primerin treatment - Ordered to clip hair as persistent lice noted despite 2 shampoo treatment #Liver cirrhosis secondary to EtOH # ETOH withdrawal. Discontinue Libirum - DF 31 -MELD 15 on admission -Abdominal ultrasound reviewed -Status post paracentesis 07/05/2019 with removal of 8 L. -Albumin for BP support as needed -Supportive care - lactulose NH - Repeat paracentesis 07/16. Recheck INR, VIT K and ffp as needed check ammonia #Anemia, likely might multifactorial including acute blood loss anemia, anemia of chronic disease -Hematology consult, appreciate recs -Iron panel: Reviewed -Low folate: Replace -B12 within normal limits above 800 -GI consult, appreciate recs. HOLD OFF NGT for now due to risk with possible esophageal varices. PENDING EGD per GI decision. Patient is gradually waking up and eating is still a problem. MONITOR closely as he is now 9 days into the Hospital stay. #Thrombocytopenia -due to cirrhosis- stable #Substance abuse -Nodular liver in ultrasound suggestive of cirrhosis -Check hepatitis and HIV: hiv neg, hepatitis panel negative -Social work Consult - Psyche consult, appreciate recs #Hypokalemia Replace as needed, will replace today # Hypomagnesemia Replace today # Hypocalcemia - replace as needed #Dysphagia -Etiology due to agitation, likely due underlying hepatic encephalopathy vs side effect of Ativan #full code # Disposition SW and CM follow up needed. Homeless. ?hospice. palliative care consult The time of my note may not reflect the time of my patient encounter. I spent 40 minutes on this encounter, greater than 50 percent in counseling and care coordination Subjective Allergies: Coded Allergies: No Known Allergies (Unverified , 07/03/19) Subjective seen and examined awake calm mental status waxing and waning on oral antibiotics ROS unable to obtain due to mental status Objective Last 24 Hour Vital Signs Date Time Temp Pulse Resp B/P (MAP) Pulse Ox O2 Delivery O2 Flow Rate FiO2 07/25/19 08:00 98.8 98 20 115/70 (85) 95 07/25/19 04:00 98.9 101 19 109/69 (82) 93 07/25/19 00:00 98.4 102 19 113/69 (84) 98 07/24/19 20:50 Room Air 07/24/19 20:00 98.3 96 19 102/66 (78) 96 07/24/19 16:00 98.6 72 19 108/65 (79) 99 07/24/19 12:00 99.5 80 20 101/60 (74) 95 Intake and Output 07/24/19 07/25/19 19:00 07:00 Intake Total 136 ml 240 ml Balance 136 ml 240 ml Intake Oral 136 ml 240 ml # Voids 3 # Bowel Movements 7 2 Laboratory Tests 07/25/19 05:05: White Blood Count 11.6H, Red Blood Count 3.26L, Hemoglobin 9.2L, Hematocrit 30.0L, Mean Corpuscular Volume 92, Mean Corpuscular Hemoglobin 28.4, Mean Corpuscular Hemoglobin Concent 30.8L, Red Cell Distribution Width 20.5H, Platelet Count 126L, Mean Platelet Volume 6.8, Neutrophils (%) (Auto) 75.6H, Lymphocytes (%) (Auto) 15.2L, Monocytes (%) (Auto) 6.0, Eosinophils (%) (Auto) 2.1, Basophils (%) (Auto) 1.1 Height (Feet): 5 Height (Inches): 8.00 Weight (Pounds): 154 Objective General Appearance: moderate agitation EENT: PERRL/EOMI, normal ENT inspection Cardiovascular: normal rate Respiratory/Chest: lungs clear Abdomen: distended, hepatomegaly Edema: trace edema 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 Jul 25, 2019 10:23
[2019-07-25 12:00] VITALS: BP 120/73
--- NOTE | 2019-07-25 12:31 | Surgery Progress Note ---
Surgery Progress Note Subjective Additional Comments no acute events Objective Last 24 Hour Vital Signs Date Time Temp Pulse Resp B/P (MAP) Pulse Ox O2 Delivery O2 Flow Rate FiO2 07/25/19 09:00 Room Air 07/25/19 08:00 98.8 98 20 115/70 (85) 95 07/25/19 04:00 98.9 101 19 109/69 (82) 93 07/25/19 00:00 98.4 102 19 113/69 (84) 98 07/24/19 20:50 Room Air 07/24/19 20:00 98.3 96 19 102/66 (78) 96 07/24/19 16:00 98.6 72 19 108/65 (79) 99 I&O Intake and Output 07/24/19 07/25/19 19:00 07:00 Intake Total 136 ml 240 ml Balance 136 ml 240 ml Intake Oral 136 ml 240 ml # Voids 3 # Bowel Movements 7 2 Cardiovascular: RSR Respiratory: clear Abdomen: soft, distended, non-tender, present bowel sounds Extremities: no tenderness, no cyanosis, other Laboratory Tests Test 07/25/19 05:05 White Blood Count 11.6 K/UL (4.8-10.8) H Red Blood Count 3.26 M/UL (4.70-6.10) L Hemoglobin 9.2 G/DL (14.2-18.0) L Hematocrit 30.0 % (42.0-52.0) L Mean Corpuscular Volume 92 FL (80-99) Mean Corpuscular Hemoglobin 28.4 PG (27.0-31.0) Mean Corpuscular Hemoglobin Concent 30.8 G/DL (32.0-36.0) L Red Cell Distribution Width 20.5 % (11.6-14.8) H Platelet Count 126 K/UL (150-450) L Mean Platelet Volume 6.8 FL (6.5-10.1) Neutrophils (%) (Auto) 75.6 % (45.0-75.0) H Lymphocytes (%) (Auto) 15.2 % (20.0-45.0) L Monocytes (%) (Auto) 6.0 % (1.0-10.0) Eosinophils (%) (Auto) 2.1 % (0.0-3.0) Basophils (%) (Auto) 1.1 % (0.0-2.0) Plan Problems: (1) Abdominal distension Assessment & Plan: Abdominal distention from ascites as he has significant liver dysfunction para with 8L fluid without malignant cells micro with bacteremia labs stable and improving . exam stable more awake and responsive Findings: There is ascites fluid present. Gallbladder is unremarkable, without stones, wall thickening, nor pericholecystic fluid. Sonographic Washington's sign is negative. Common bile duct measures 3 mm in diameter. No intrahepatic biliary ductal dilatation. Liver demonstrates slightly increased echogenicity. No focal abnormality. It demonstrates surface nodularity. Portal vein and hepatic veins are patent. Pancreas is obscured by bowel gas. Spleen is unremarkable. Left kidney measures 11.4 cm in length. Right kidney measures 11.1 cm length. Both kidneys demonstrate normal echogenicity. There is no hydronephrosis. No focal abnormality . Abdominal aorta is partially obscured by bowel gas, visualized portions are non-aneurysmal . Impression: Hepatic surface nodularity, suggestive of cirrhosis. Ascites Negative for gallstones or dilated bile ducts (2) Facial trauma Assessment & Plan: Findings: No acute intracranial hemorrhage or edema. No mass effect or midline shift. Normal hardy-white differentiation. Slightly prominent for age ventricles and extra axial CSF spaces. Mild periventricular deep white matter low-attenuation consistent with chronic microvascular ischemic changes noted Questionable minimal left supraorbital scalp contusion. Intact calvarium. Visualized orbits and sinuses are unremarkable. The mastoids are clear. unknown if fall or assault lip with dry blood and in medial aspect small oozing - resolved apply dressing prn thank you Alvin James Jul 25, 2019 12:31
--- NOTE | 2019-07-25 13:42 | NUR ---
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 98.9 HR 102 RR 20 B/P 109/69 WBC 11.6 IS: KEFLEX PO LACTULOSE PO THIAMINE PO K-DUR PO MED/SURG STATUS
--- NOTE | 2019-07-25 14:03 | General Progress Note ---
Assessment/Plan Problem List: (1) Anemia ICD Codes: D64.9 - Anemia, unspecified SNOMED: 899194108 Qualifiers: Qualified Codes: D64.9 - Anemia, unspecified (2) Acute alcoholic intoxication ICD Codes: F10.929 - Alcohol use, unspecified with intoxication, unspecified SNOMED: 39314000, 8131334 Qualifiers: Qualified Codes: F10.929 - Alcohol use, unspecified with intoxication, unspecified (3) Cirrhosis ICD Codes: K74.60 - Unspecified cirrhosis of liver SNOMED: 10796185 (4) Ascites ICD Codes: R18.8 - Other ascites SNOMED: 910896704 Status: stable, unchanged Assessment/Plan: (1) Ascites ICD Codes: R18.8 - Other ascites SNOMED: 045678379 (2) Cirrhosis ICD Codes: K74.60 - Unspecified cirrhosis of liver SNOMED: 11299964 (3) Abdominal distension ICD Codes: R14.0 - Abdominal distension (gaseous) SNOMED: 72806643 (4) Acute alcoholic intoxication ICD Codes: F10.929 - Alcohol use, unspecified with intoxication, unspecified SNOMED: 37860087, 7548532 Qualifiers: Qualified Codes: F10.929 - Alcohol use, unspecified with intoxication, unspecified (5) Anemia ICD Codes: D64.9 - Anemia, unspecified SNOMED: 464431764 Qualifiers: Qualified Codes: D64.9 - Anemia, unspecified Status: unchanged Status Narrative Discussed with Dr. Guzman. Assessment/Plan Assessment (1) Anemia (2) Acute alcoholic intoxication (3) Cirrhosis (4) Ascites (5) Encephalopathy / delirium (6) abnormal lytes tolerating diet no obvious GIB per nurses Recommendations prn paracentesis protonix eating better , continue to push PO Subjective Allergies: Coded Allergies: No Known Allergies (Unverified , 07/03/19) Objective Last 24 Hour Vital Signs Date Time Temp Pulse Resp B/P (MAP) Pulse Ox O2 Delivery O2 Flow Rate FiO2 07/25/19 12:00 98.6 88 19 120/73 (89) 96 07/25/19 09:00 Room Air 07/25/19 08:00 98.8 98 20 115/70 (85) 95 07/25/19 04:00 98.9 101 19 109/69 (82) 93 07/25/19 00:00 98.4 102 19 113/69 (84) 98 07/24/19 20:50 Room Air 07/24/19 20:00 98.3 96 19 102/66 (78) 96 07/24/19 16:00 98.6 72 19 108/65 (79) 99 Intake and Output 07/24/19 07/25/19 19:00 07:00 Intake Total 136 ml 240 ml Balance 136 ml 240 ml Intake Oral 136 ml 240 ml # Voids 3 # Bowel Movements 7 2 Laboratory Tests 07/25/19 05:05: White Blood Count 11.6H, Red Blood Count 3.26L, Hemoglobin 9.2L, Hematocrit 30.0L, Mean Corpuscular Volume 92, Mean Corpuscular Hemoglobin 28.4, Mean Corpuscular Hemoglobin Concent 30.8L, Red Cell Distribution Width 20.5H, Platelet Count 126L, Mean Platelet Volume 6.8, Neutrophils (%) (Auto) 75.6H, Lymphocytes (%) (Auto) 15.2L, Monocytes (%) (Auto) 6.0, Eosinophils (%) (Auto) 2.1, Basophils (%) (Auto) 1.1 Height (Feet): 5 Height (Inches): 8.00 Weight (Pounds): 154 General Appearance: no apparent distress EENT: normal ENT inspection Neck: supple Cardiovascular: normal rate Respiratory/Chest: decreased breath sounds Abdomen: normal bowel sounds, non tender, soft Extremities: non-tender Robert Guzman MD Jul 25, 2019 14:03
--- NOTE | 2019-07-25 14:19 | NUR ---
NURSE NOTES: patient was agitated. tried to pull out restraints, get out of bed. administered ativan 0.5 mg IVP as ordered.
[2019-07-25 16:00] VITALS: BP 128/77
--- NOTE | 2019-07-25 19:29 | NUR ---
HAND-OFF: Report given to JOSEFINA Jaramillo.
--- NOTE | 2019-07-25 19:39 | NUR ---
NURSE NOTES: Received report from JOSEFINA Medina. Patient is currently asleep. On room air with no signs of distress or SOB. Both IVs intact and patent. Bilateral soft wrist restraints still in progress. Side rails are padded as a seizure precaution. Bed is locked and in the lowest position. Bed alarm activated. Call light in reach. Will continue to monitor the patient.
[2019-07-25 20:00] VITALS: BP 113/66
[2019-07-26] VITALS: BP 112/68
[2019-07-26] MEDS: Cephalexin 500mg cap ORAL SCH ×5 (00:40→22:21)
[2019-07-26 04:00] VITALS: BP 113/72
[2019-07-26 07:32] LABS: HEMATOCRIT 24.3 % (42.0-52.0); HEMOGLOBIN 7.6 G/DL (14.2-18.0); MEAN CORPUSCULAR VOLUME 92 FL (80-99); PLATELET COUNT 109 K/UL (150-450); RED BLOOD COUNT 2.64 M/UL (4.70-6.10); RED CELL DISTRIBUTION WIDTH 20.8 % (11.6-14.8); WHITE BLOOD COUNT 7.7 K/UL (4.8-10.8)
--- NOTE | 2019-07-26 07:39 | NUR ---
HAND-OFF: Report given to JOSEFINA Medina.
--- NOTE | 2019-07-26 07:53 | NUR ---
NURSE NOTES: received report from JOSEFINA Jaramillo. patient in bed. alert. disoriented. verbally responsive. no respiratory distress noted. no c/o pain at this time. 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 no IV at this time, bed in the lowest position. call light within reach. will continue to provide plan of care.
[2019-07-26 08:00] VITALS: BP 119/66
[2019-07-26] MEDS: Pantoprazole Inj IVP SCH ×2 (09:00→09:02)
[2019-07-26] MEDS: Lactulose 20gm/30ml UDC ORAL SCH ×3 (09:02→17:31)
[2019-07-26] MEDS: Thiamine 100mg tab ORAL SCH (09:02)
--- NOTE | 2019-07-26 09:34 | NUR ---
NURSE NOTES: patient hgb 7.[address] Guo. no new order at this time. keep monitoring since VS stable.
--- NOTE | 2019-07-26 09:38 | General Progress Note ---
Assessment/Plan Problem List: (1) Anemia ICD Codes: D64.9 - Anemia, unspecified SNOMED: 449911000 Qualifiers: Qualified Codes: D64.9 - Anemia, unspecified (2) Acute alcoholic intoxication ICD Codes: F10.929 - Alcohol use, unspecified with intoxication, unspecified SNOMED: 97596910, 5977266 Qualifiers: Qualified Codes: F10.929 - Alcohol use, unspecified with intoxication, unspecified (3) Cirrhosis ICD Codes: K74.60 - Unspecified cirrhosis of liver SNOMED: 32322172 (4) Ascites ICD Codes: R18.8 - Other ascites SNOMED: 768376559 Status: stable, unchanged Assessment/Plan: (1) Ascites ICD Codes: R18.8 - Other ascites SNOMED: 491607308 (2) Cirrhosis ICD Codes: K74.60 - Unspecified cirrhosis of liver SNOMED: 89198607 (3) Abdominal distension ICD Codes: R14.0 - Abdominal distension (gaseous) SNOMED: 10333483 (4) Acute alcoholic intoxication ICD Codes: F10.929 - Alcohol use, unspecified with intoxication, unspecified SNOMED: 96296992, 3594585 Qualifiers: Qualified Codes: F10.929 - Alcohol use, unspecified with intoxication, unspecified (5) Anemia Assessment/Plan (1) Anemia (2) Acute alcoholic intoxication (3) Cirrhosis (4) Ascites (5) Encephalopathy / delirium (6) abnormal lytes tolerating diet no obvious GIB per nurses Recommendations prn paracentesis protonix eating better , continue to push PO Subjective ROS Limited/Unobtainable: Yes Allergies: Coded Allergies: No Known Allergies (Unverified , 07/03/19) Objective Last 24 Hour Vital Signs Date Time Temp Pulse Resp B/P (MAP) Pulse Ox O2 Delivery O2 Flow Rate FiO2 07/26/19 08:00 98.5 90 18 119/66 (83) 96 07/26/19 04:00 98.3 96 18 113/72 (86) 98 07/26/19 00:00 97.9 105 20 112/68 (83) 07/25/19 20:07 Room Air 07/25/19 20:00 98.0 100 20 113/66 (82) 95 07/25/19 16:00 98.5 90 20 128/77 (94) 97 07/25/19 12:00 98.6 88 19 120/73 (89) 96 Intake and Output 07/25/19 07/26/19 18:59 06:59 Intake Total 620 ml Balance 620 ml Intake Oral 620 ml # Voids 6 1 # Bowel Movements 1 Laboratory Tests 07/26/19 04:30: White Blood Count 7.7, Red Blood Count 2.64L, Hemoglobin 7.6L, Hematocrit 24.3L , Mean Corpuscular Volume 92, Mean Corpuscular Hemoglobin 28.8, Mean Corpuscular Hemoglobin Concent 31.3L, Red Cell Distribution Width 20.8H, Platelet Count 109L, Mean Platelet Volume 6.1L, Neutrophils (%) (Auto) , Lymphocytes (%) (Auto) , Monocytes (%) (Auto) , Eosinophils (%) (Auto) , Basophils (%) (Auto) , Differential Total Cells Counted 100, Neutrophils % ( Manual) 67, Lymphocytes % (Manual) 19L, Monocytes % (Manual) 10, Eosinophils % ( Manual) 4H, Basophils % (Manual) 0, Band Neutrophils 0, Platelet Estimate DecreasedL, Platelet Morphology Normal, Hypochromasia 1+, Anisocytosis 2+ Height (Feet): 5 Height (Inches): 8.00 Weight (Pounds): 154 General Appearance: alert EENT: normal ENT inspection Neck: normal alignment Cardiovascular: normal rate Respiratory/Chest: lungs clear Abdomen: non tender, soft, distended Extremities: non-tender Robert Guzman MD Jul 26, 2019 09:37
--- NOTE | 2019-07-26 09:58 | NUR ---
NURSE NOTES: patient pulled out IV. refused to get new IV. notified Dr. Muñoz. is aware. received order switch IV meds to PO. order noted and carried out.
[2019-07-26] MEDS: LORazepam 0.5mg tab ORAL PRN ×3 (10:36→22:21)
--- NOTE | 2019-07-26 10:41 | General Progress Note ---
Assessment/Plan Status: stable, unchanged Assessment/Plan: 48-year-old male with past medical history of ETOH abuse presented found down. Overall improving s/p paracentesis 07/16/19 #Encephalopathy likely multifactorial including hepatic encephalopathy ( elevated ammonia), as well as sepsis with bacteremia due to MSSA. #Sepsis secondary to bacteremia due to MSSA -s/p vancomycin and Zosyn (07/06), now cefazolin per ID recs. Keflex for 2 weeks started 07/21/19 -Repeat blood cultures are negative -Infectious disease consult, appreciate recs -Palliative care consult appreciated. Medical application in process. [facility] informed and accepted #Hypernatremia- resolved encourage PO intake # Lice - primerin treatment - Ordered to clip hair as persistent lice noted despite 2 shampoo treatment #Liver cirrhosis secondary to EtOH # ETOH withdrawal. Discontinue Libirum - DF 31 -MELD 15 on admission -Abdominal ultrasound reviewed -Status post paracentesis 07/05/2019 with removal of 8 L. -Albumin for BP support as needed -Supportive care - lactulose SD - Repeat paracentesis 07/16. Recheck INR, VIT K and ffp as needed check ammonia #Anemia, likely might multifactorial including acute blood loss anemia, anemia of chronic disease -Hematology consult, appreciate recs -Iron panel: Reviewed -Low folate: Replace -B12 within normal limits above 800 -GI consult, appreciate recs. HOLD OFF NGT for now due to risk with possible esophageal varices. PENDING EGD per GI decision. Patient is gradually waking up and eating is still a problem. MONITOR closely as he is now 9 days into the Hospital stay. #Thrombocytopenia -due to cirrhosis- stable #Substance abuse -Nodular liver in ultrasound suggestive of cirrhosis -Check hepatitis and HIV: hiv neg, hepatitis panel negative -Social work Consult - Psyche consult, appreciate recs #Hypokalemia Replace as needed, will replace today # Hypomagnesemia Replace today # Hypocalcemia - replace as needed #Dysphagia -Etiology due to agitation, likely due underlying hepatic encephalopathy vs side effect of Ativan #full code # Disposition SW and CM follow up needed. Homeless. ?hospice. palliative care consult The time of my note may not reflect the time of my patient encounter. I spent 40 minutes on this encounter, greater than 50 percent in counseling and care coordination Subjective Date patient seen: Jul 26, 2019 ROS Limited/Unobtainable: Yes Allergies: Coded Allergies: No Known Allergies (Unverified , 07/03/19) Subjective seen and examined awake calm mental status waxing and waning on oral antibiotics with keflex for mssa bacteremia ROS unable to obtain due to mental status pulled IV out Objective Last 24 Hour Vital Signs Date Time Temp Pulse Resp B/P (MAP) Pulse Ox O2 Delivery O2 Flow Rate FiO2 07/26/19 08:00 98.5 90 18 119/66 (83) 96 07/26/19 04:00 98.3 96 18 113/72 (86) 98 07/26/19 00:00 97.9 105 20 112/68 (83) 07/25/19 20:07 Room Air 07/25/19 20:00 98.0 100 20 113/66 (82) 95 07/25/19 16:00 98.5 90 20 128/77 (94) 97 07/25/19 12:00 98.6 88 19 120/73 (89) 96 Intake and Output 07/25/19 07/26/19 18:59 06:59 Intake Total 620 ml Balance 620 ml Intake Oral 620 ml # Voids 6 1 # Bowel Movements 1 Laboratory Tests 07/26/19 04:30: White Blood Count 7.7, Red Blood Count 2.64L, Hemoglobin 7.6L, Hematocrit 24.3L , Mean Corpuscular Volume 92, Mean Corpuscular Hemoglobin 28.8, Mean Corpuscular Hemoglobin Concent 31.3L, Red Cell Distribution Width 20.8H, Platelet Count 109L, Mean Platelet Volume 6.1L, Neutrophils (%) (Auto) , Lymphocytes (%) (Auto) , Monocytes (%) (Auto) , Eosinophils (%) (Auto) , Basophils (%) (Auto) , Differential Total Cells Counted 100, Neutrophils % ( Manual) 67, Lymphocytes % (Manual) 19L, Monocytes % (Manual) 10, Eosinophils % ( Manual) 4H, Basophils % (Manual) 0, Band Neutrophils 0, Platelet Estimate DecreasedL, Platelet Morphology Normal, Hypochromasia 1+, Anisocytosis 2+ Height (Feet): 5 Height (Inches): 8.00 Weight (Pounds): 154 Objective General Appearance: moderate agitation EENT: PERRL/EOMI, normal ENT inspection Cardiovascular: normal rate Respiratory/Chest: lungs clear Abdomen: distended, hepatomegaly Edema: trace edema 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 Jul 26, 2019 10:41
[2019-07-26 12:00] VITALS: BP 113/69
[2019-07-26] MEDS: Magnesium Oxide 400mg tab ORAL SCH ×2 (12:41→17:31)
--- NOTE | 2019-07-26 14:31 | NUR ---
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 98.5 HR 90 RR 18 B/P 119/66 H/H 7.6/24.3 IS: KEFLEX PO LASIX PO THIAMINE PO LACTULOSE PO PT EVAL MED/SURG STATUS
--- NOTE | 2019-07-26 15:09 | Hematology/Onc Progress Note ---
Assessment/Plan Assessment/Plan ASSESSMENT AND RECS # Anemia of iron deficiency in addition to suppression from etoh abuse and cirrhosis of liver, ETOH --> Anemia workup has been ordered, rule out gi bleed --> aid noted --> No evidence of hemolysis is noted, peripheral smear has been reviewed. --> Hgb goal >7. Transfuse prn. --> Hgb trend: 4.2-->7.1-->7.6 --> 7.6-->7.7-->8.9-->9.1-->8.9-->8.5->8.8-->8.9- ->9.2-->7.6 --> IRON IV 200mg ordered x 1dose (given) --> Medications have been reviewed --> stool ob negative # Thrombocytopenia - secondary to liver cirrhosis and etoh use --> Hep panel and HIV - both negative --> US abd to evaluate for cirrhosis and hsm ordered - Hepatic surface nodularity, suggestive of cirrhosis. Ascites --> Peripheral smear ordered to evaluate for blasts /schistocytes and none significant noted --> abx and other meds have been reviewed --> ok for ppx if plt >50k w/ either heparin or lovenox --> Transfuse if Plt < 20k and fever, or if Plt < 10k without fever --> plt trend 90-->92k-->82-->92k-->85k-->104k-->122k-->126k-->109k # Coagulopathy due to liver cirrhosis secondary to Etoh --> GI is following, appreciate recs --> Abdominal ultrasound reviewed --> Supportive care --> lactulose prophylactic --> vit K on prn basis 07/15 # Substance abuse --> psych eval # Hypokalemia --> Replace, continue to monitor # Hypocalcemia --> replete Ca++ prn # Cirrhosis of the liver --> appears chronic # Dvt ppx with ambul, scds The timing of this note does not necessarily reflect the time of the patient was seen. GREATLY APPRECIATE CONSULTATION. Subjective Allergies: Coded Allergies: No Known Allergies (Unverified , 07/03/19) Subjective 07/05: no fevers, chills or night sweats noted, on iv iron has been started, on benzo 07/07: extremely agitated overnight, climbin out of bed, on cristina taper, h/h low 07/08: remains on abx, no f/c, no bleeding is noted, no changes 07/09: paracentesis negative for malignant cells, cxr and labs reviewed 07/10: no acute distress, still drowsy, has been attempting to get out of bed 07/11: transferred [facility], stool ob negative, h/h stable 07/12: imaging reviewed, on abx, us paracentesis, no distress 07/13: remains on librium, plt 85, hgb 8.5, no f/c, no night sweats 07/15: no bleeding, pt/ptt elevated, given vit K, no f/c, no chills noted 07/16: for repeat paracentesis, no f/c, no bleeding 07/17: us paracentesis, vs stable, no f/c, denies any pain, on abx, med reviewed 07/18: remains on ancef for now 14d as per id, no bleeding reported, no f/c 07/19: on abx, no f/c, vs stable, no sob, no acute distress, imaging reviewed 07/20: electrolytes repleted, no f/c, confused still 07/22: no events, no bleeding, labs have been reviewed, remains confused 07/23: no f/c, confused, on restraints, denies pain or comfort, on cephalexin 07/24: remains somewhat confused, on restraints, no bleeding, chills 07/25: no f/c, on restraints, seizure precaution, on cephalexin, no distress 07/26: vs stable, no f/c, agitated, refusing care/tx, hgb 7.6 repeat cbc tomorrow am Objective Objective Current Medications Medications (Trade) Dose Ordered Sig/Tanja Route PRN Reason Start Time Stop Time Status Last Admin Dose Admin Cephalexin (Keflex) 500 mg Q6HR ORAL 07/21/19 18:00 08/04/19 19:00 07/26/19 12:41 Folic Acid (Folate) 1 mg DAILY ORAL 07/20/19 09:00 08/03/19 10:29 07/26/19 09:02 Lactulose (Cephulac) 20 gm THREE TIMES A DAY ORAL 07/20/19 09:00 08/04/19 12:59 07/26/19 12:41 Lorazepam (Ativan) 0.5 mg Q4H PRN ORAL For Anxiety 07/26/19 10:15 08/02/19 10:14 07/26/19 10:36 Magnesium Oxide (Mag-Ox 400mg) 400 mg THREE TIMES A DAY ORAL 07/26/19 13:00 08/25/19 12:59 07/26/19 12:41 Pantoprazole (Protonix) 40 mg EVERY 12 HOURS ORAL 07/26/19 21:00 08/25/19 20:59 Potassium Chloride (K-Dur) 40 meq DAILY ORAL 07/20/19 09:00 08/15/19 08:59 07/26/19 09:02 Thiamine HCl (Vitamin B1) 100 mg DAILY ORAL 07/20/19 09:00 08/03/19 10:29 07/26/19 09:02 Last 24 Hour Vital Signs Date Time Temp Pulse Resp B/P (MAP) Pulse Ox O2 Delivery O2 Flow Rate FiO2 07/26/19 12:00 98.0 91 18 113/69 (84) 97 07/26/19 09:00 Room Air 07/26/19 08:00 98.5 90 18 119/66 (83) 96 07/26/19 04:00 98.3 96 18 113/72 (86) 98 07/26/19 00:00 97.9 105 20 112/68 (83) 07/25/19 20:07 Room Air 07/25/19 20:00 98.0 100 20 113/66 (82) 95 07/25/19 16:00 98.5 90 20 128/77 (94) 97 07/25/19 12:00 98.6 88 19 120/73 (89) 96 07/25/19 09:00 Room Air 07/25/19 08:00 98.8 98 20 115/70 (85) 95 07/25/19 04:00 98.9 101 19 109/69 (82) 93 07/25/19 00:00 98.4 102 19 113/69 (84) 98 07/24/19 20:50 Room Air 07/24/19 20:00 98.3 96 19 102/66 (78) 96 07/24/19 16:00 98.6 72 19 108/65 (79) 99 Intake and Output 07/25/19 07/26/19 19:00 07:00 Intake Total 620 ml Balance 620 ml Intake Oral 620 ml # Voids 6 1 # Bowel Movements 1 Labs Test 07/25/19 05:05 07/26/19 04:30 White Blood Count 11.6 K/UL (4.8-10.8) 7.7 K/UL (4.8-10.8) Red Blood Count 3.26 M/UL (4.70-6.10) 2.64 M/UL (4.70-6.10) Hemoglobin 9.2 G/DL (14.2-18.0) 7.6 G/DL (14.2-18.0) Hematocrit 30.0 % (42.0-52.0) 24.3 % (42.0-52.0) Mean Corpuscular Volume 92 FL (80-99) 92 FL (80-99) Mean Corpuscular Hemoglobin 28.4 PG (27.0-31.0) 28.8 PG (27.0-31.0) Mean Corpuscular Hemoglobin Concent 30.8 G/DL (32.0-36.0) 31.3 G/DL (32.0-36.0) Red Cell Distribution Width 20.5 % (11.6-14.8) 20.8 % (11.6-14.8) Platelet Count 126 K/UL (150-450) 109 K/UL (150-450) Mean Platelet Volume 6.8 FL (6.5-10.1) 6.1 FL (6.5-10.1) Neutrophils (%) (Auto) 75.6 % (45.0-75.0) % (45.0-75.0) Lymphocytes (%) (Auto) 15.2 % (20.0-45.0) % (20.0-45.0) Monocytes (%) (Auto) 6.0 % (1.0-10.0) % (1.0-10.0) Eosinophils (%) (Auto) 2.1 % (0.0-3.0) % (0.0-3.0) Basophils (%) (Auto) 1.1 % (0.0-2.0) % (0.0-2.0) Differential Total Cells Counted 100 Neutrophils % (Manual) 67 % (45-75) Lymphocytes % (Manual) 19 % (20-45) Monocytes % (Manual) 10 % (1-10) Eosinophils % (Manual) 4 % (0-3) Basophils % (Manual) 0 % (0-2) Band Neutrophils 0 % (0-8) Platelet Estimate Decreased Platelet Morphology Normal Hypochromasia 1+ Anisocytosis 2+ Height (Feet): 5 Height (Inches): 8.00 Weight (Pounds): 154 Objective Physical Exam: Vitals: reviewed General Appearance: NAD HEENT: normocephalic, atraumatic Neck: non-tender, normal alignment Respiratory/Chest: normal breath sounds bilaterally Cardiovascular/Chest: normal peripheral pulses, normal rate Abdomen: normal bowel sounds, soft, nontender +++ ascites Avery Guo MD Jul 26, 2019 15:09
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
[2019-07-26 16:00] VITALS: BP 121/69
--- NOTE | 2019-07-26 19:27 | NUR ---
HAND-OFF: Report given to JOSEFINA Bhatia.
[2019-07-26 20:00] VITALS: BP 119/77
--- NOTE | 2019-07-26 20:02 | NUR ---
NURSE NOTES: Pt is in bed, awake and verbal. Pt is confused, rambling in [place]. No acute distress noted. Pt is on contact isolation. Bilat soft wrist restraints are in place, restraint sites are asymptomatic. Pt has no IV access, according to last shift nurse Adam Mustafa,RN, MD is aware. Pt reoriented. Fall precaution in place. Bed locked low in position,side rails up and call light within reach. Bed alarm on. Pt will be monitored.
[2019-07-27] VITALS: BP 111/58
--- NOTE | 2019-07-27 02:05 | NUR ---
NURSE NOTES: Pt is in bed, awake, restless. Bilat soft restraints on. Vitas stable. Fall precaution in place.
[2019-07-27 04:00] VITALS: BP 117/78
[2019-07-27] MEDS: Cephalexin 500mg cap ORAL SCH ×4 (06:05→23:51)
[2019-07-27] MEDS: LORazepam 0.5mg tab ORAL PRN ×2 (06:05→23:51)
[2019-07-27 07:18] LABS: BASOPHILS % (AUTO) 1.6 % (0.0-2.0); EOSINOPHILS % (AUTO) 2.4 % (0.0-3.0); HEMATOCRIT 26.4 % (42.0-52.0); LYMPHOCYTES % (AUTO) 24.9 % (20.0-45.0); MEAN CORPUSCULAR VOLUME 93 FL (80-99); MONOCYTES % (AUTO) 10.8 % (1.0-10.0); NEUTROPHILS % (AUTO) 60.4 % (45.0-75.0); PLATELET COUNT 116 K/UL (150-450); RED BLOOD COUNT 2.83 M/UL (4.70-6.10); RED CELL DISTRIBUTION WIDTH 20.2 % (11.6-14.8); WHITE BLOOD COUNT 6.6 K/UL (4.8-10.8)
--- NOTE | 2019-07-27 07:20 | NUR ---
HAND-OFF: Report given to Benjamin Aparicio RN.Informed that pt is Fall risk.
[2019-07-27 07:27] LABS: ANION GAP 6 mmol/L (5-15); BLOOD UREA NITROGEN 5 mg/dL (7-18); CALCIUM 7.9 MG/DL (8.5-10.1); CARBON DIOXIDE 25 MMOL/L (21-32); CHLORIDE 112 MMOL/L (98-107); CREATININE 1.1 MG/DL (0.55-1.30); POTASSIUM 3.4 MMOL/L (3.5-5.1); SODIUM 143 MMOL/L (136-145)
--- NOTE | 2019-07-27 07:32 | General Progress Note ---
Assessment/Plan Problem List: (1) Anemia ICD Codes: D64.9 - Anemia, unspecified SNOMED: 592248532 Qualifiers: Qualified Codes: D64.9 - Anemia, unspecified (2) Acute alcoholic intoxication ICD Codes: F10.929 - Alcohol use, unspecified with intoxication, unspecified SNOMED: 15924723, 0464880 Qualifiers: Qualified Codes: F10.929 - Alcohol use, unspecified with intoxication, unspecified (3) Cirrhosis ICD Codes: K74.60 - Unspecified cirrhosis of liver SNOMED: 72629304 (4) Ascites ICD Codes: R18.8 - Other ascites SNOMED: 270539761 Status: stable, unchanged Assessment/Plan: (1) Ascites ICD Codes: R18.8 - Other ascites SNOMED: 694221293 (2) Cirrhosis ICD Codes: K74.60 - Unspecified cirrhosis of liver SNOMED: 29000793 (3) Abdominal distension ICD Codes: R14.0 - Abdominal distension (gaseous) SNOMED: 23834557 (4) Acute alcoholic intoxication ICD Codes: F10.929 - Alcohol use, unspecified with intoxication, unspecified SNOMED: 74529928, 5031396 Qualifiers: Qualified Codes: F10.929 - Alcohol use, unspecified with intoxication, unspecified (5) Anemia Assessment/Plan (1) Anemia (2) Acute alcoholic intoxication (3) Cirrhosis (4) Ascites (5) Encephalopathy / delirium (6) abnormal lytes tolerating diet no obvious GIB per nurses Recommendations prn paracentesis protonix eating better , continue to push PO Subjective ROS Limited/Unobtainable: No Allergies: Coded Allergies: No Known Allergies (Unverified , 07/03/19) Objective Last 24 Hour Vital Signs Date Time Temp Pulse Resp B/P (MAP) Pulse Ox O2 Delivery O2 Flow Rate FiO2 07/27/19 04:00 97.6 94 18 117/78 (91) 98 07/27/19 00:00 97.8 95 20 111/58 (75) 96 07/26/19 21:00 Room Air 07/26/19 20:00 97.2 97 20 119/77 (91) 97 07/26/19 16:00 98.8 69 17 121/69 (86) 96 07/26/19 12:00 98.0 91 18 113/69 (84) 97 07/26/19 09:00 Room Air 07/26/19 08:00 98.5 90 18 119/66 (83) 96 Intake and Output 07/26/19 07/27/19 18:59 06:59 Intake Total 600 ml Balance 600 ml Other 600 ml # Voids 2 # Bowel Movements 1 Laboratory Tests 07/27/19 06:40: White Blood Count 6.6, Red Blood Count 2.83L, Hemoglobin 8.0L, Hematocrit 26.4L , Mean Corpuscular Volume 93, Mean Corpuscular Hemoglobin 28.5, Mean Corpuscular Hemoglobin Concent 30.5L, Red Cell Distribution Width 20.2H, Platelet Count 116L, Mean Platelet Volume 6.8, Neutrophils (%) (Auto) 60.4, Lymphocytes (%) (Auto) 24.9, Monocytes (%) (Auto) 10.8H, Eosinophils (%) (Auto) 2.4, Basophils (%) (Auto) 1.6, Sodium Level [Pending], Potassium Level [Pending] , Chloride Level [Pending], Carbon Dioxide Level [Pending], Blood Urea Nitrogen [Pending], Creatinine [Pending], Estimat Glomerular Filtration Rate [Pending], Glucose Level [Pending], Calcium Level [Pending] Height (Feet): 5 Height (Inches): 8.00 Weight (Pounds): 154 General Appearance: alert EENT: normal ENT inspection Neck: supple Cardiovascular: normal rate Respiratory/Chest: decreased breath sounds Abdomen: normal bowel sounds, non tender, soft Extremities: non-tender Robert Guzman MD Jul 27, 2019 07:32
[2019-07-27 08:00] VITALS: BP 121/76
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
[2019-07-27] MEDS: Magnesium Oxide 400mg tab ORAL SCH ×3 (08:48→17:40)
[2019-07-27] MEDS: Lactulose 20gm/30ml UDC ORAL SCH ×3 (08:49→17:40)
[2019-07-27] MEDS: Thiamine 100mg tab ORAL SCH (08:49)
--- NOTE | 2019-07-27 11:14 | NUR ---
NURSE NOTES: I received report from JOSEFINA Alexander; patient awake, [place]ian speaking, alert x2; on room air, no sing of shortness of breath; no sing of chest pain; No IV access, MD aware; bilateral soft restrain in place; abdominal ascites; bed at lowest position, bed at lowest position, breaks engaged; will keep monitoring.
[2019-07-27 12:00] VITALS: BP 126/72
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
[2019-07-27 16:00] VITALS: BP 122/81
--- NOTE | 2019-07-27 16:58 | NUR ---
PT note P.T re-evaluation completed and treatment initiated. Patient was awake and able to follow simple, repeated instructions. He has weakness and decreased postural stability, requiring extensive assist in mobility and gait. Patient is noted to be improved in his LOC and overall mobility. He can benefit from PT services to increase his muscle strength and balance to improve his functional mobility and gait. Addendum: 07/27/19 at 1659 by MARTA BURGER PT Amended: Links added.
--- NOTE | 2019-07-27 17:22 | NUR ---
CASE MANAGEMENT: REVIEW 07/27/2019 SI:ETHANOL INTOXICATION. ANEMIA. ABD DISTENTION. T 98 HR 67 RR 18 B/P 122/81 SATS 97% ON RA K 3.4 CL 112 BUN 5 CA 7.9 IS: IVF @ 100 mL/HR PROTONIX IV Q12H FOLATE PO QD THIAMINE PO QD AZITHROMYCIN PO QD CEFAZOLIN IV Q8H MED/SURG STATUS
--- NOTE | 2019-07-27 19:17 | NUR ---
HAND-OFF: Report given to JOSEFINA Christine.
[2019-07-27 20:00] VITALS: BP 128/84
--- NOTE | 2019-07-27 20:03 | NUR ---
NURSE NOTES: Received report from JOSEFINA De La Torre. Patient is in bed, awake and confused. Patient is on room air with no signs of distress or SOB. Bilateral soft wrist restraints still in progress. No IV access at this time - MD aware. Bed is locked and in lowest position with bed alarm activated. Side rails padded for seizure precautions. Will monitor closely.
[2019-07-28] VITALS: BP 128/81
[2019-07-28 04:00] VITALS: BP 118/84
[2019-07-28] MEDS: Cephalexin 500mg cap ORAL SCH ×3 (05:37→18:20)
[2019-07-28] MEDS: LORazepam 0.5mg tab ORAL PRN (05:43)
--- NOTE | 2019-07-28 07:33 | NUR ---
HAND-OFF: Report given to JOSEFINA Juan.
--- NOTE | 2019-07-28 07:55 | NUR ---
NURSE NOTES: Pt in bed in low position with bed alarm on, HOB in semi fowlers position, pt on restraints for pulling equipment and is high risk for fall, pt disoriented, Ox3 with signs of confusion, Telugu speaker, food has to be puree and liquids need to thicken, meds crushed, pt went back to sleep as ativan was given prior to my shift starting, pt has Hx of paracentesis, no s/s of stress or sob noted. pt remains a placement issue.
[2019-07-28 08:00] VITALS: BP 120/76
[2019-07-28] MEDS: Magnesium Oxide 400mg tab ORAL SCH ×3 (09:44→18:20)
[2019-07-28] MEDS: Thiamine 100mg tab ORAL SCH (09:44)
[2019-07-28] MEDS: Lactulose 20gm/30ml UDC ORAL SCH ×3 (09:45→18:20)
[2019-07-28 12:00] VITALS: BP 117/78
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
[2019-07-28 16:00] VITALS: BP 121/72
[2019-07-28 20:00] VITALS: BP 121/79
--- NOTE | 2019-07-28 20:07 | NUR ---
NURSE NOTES: Received report from from JOSEFINA Juan. Patient is in bed sleeping. On room air with no signs of distress or SOB. Bilateral wrist restraints still in progress. Side rails padded for seizure precaution. Bed is locked and in lowest position. Bed alarm on. Will monitor closely.
[2019-07-29] VITALS: BP 117/73
[2019-07-29] MEDS: Cephalexin 500mg cap ORAL SCH ×5 (00:23→23:18)
[2019-07-29] MEDS: LORazepam 0.5mg tab ORAL PRN ×3 (03:16→22:48)
[2019-07-29 04:00] VITALS: BP 121/73
[2019-07-29 07:14] LABS: HEMATOCRIT 24.4 % (42.0-52.0); HEMOGLOBIN 7.5 G/DL (14.2-18.0); MEAN CORPUSCULAR VOLUME 92 FL (80-99); PLATELET COUNT 109 K/UL (150-450); RED BLOOD COUNT 2.64 M/UL (4.70-6.10); RED CELL DISTRIBUTION WIDTH 20.8 % (11.6-14.8)
--- NOTE | 2019-07-29 07:22 | NUR ---
NURSE NOTES: HANDOFF RECEIVED FROM JOSEFINA CASTANON. PATIENT RECEIVED STABLE AND ALERT, IN BILATERAL WRIST RESTRAINTS. PATIENT IS ABLE TO MAKE NEEDS KNOWN, PATIENT HAS NO IV ACCESS BUT THE DOCTOR IS AWARE. PATIENT IS ON ROOM AIR, NO PHYSICAL SIGNS OF DISTRESS. WILL CONTINUE TO MONITOR PATIENT.
[2019-07-29 07:27] LABS: BLOOD UREA NITROGEN 6 mg/dL (7-18); CALCIUM 8.1 MG/DL (8.5-10.1); CHLORIDE 114 MMOL/L (98-107); CREATININE 1.1 MG/DL (0.55-1.30); SODIUM 145 MMOL/L (136-145)
--- NOTE | 2019-07-29 07:41 | NUR ---
HAND-OFF: Report given to JOSEFINA Ferrari.
[2019-07-29 08:00] VITALS: BP 122/76
[2019-07-29 08:01] LABS: CARBON DIOXIDE 25 MMOL/L (21-32)
--- NOTE | 2019-07-29 09:27 | General Progress Note ---
Assessment/Plan Status: stable, unchanged Assessment/Plan: 48-year-old male with past medical history of ETOH abuse presented found down. Overall improving s/p paracentesis 07/16/19 #Encephalopathy likely multifactorial including hepatic encephalopathy ( elevated ammonia), as well as sepsis with bacteremia due to MSSA. #Sepsis secondary to bacteremia due to MSSA -s/p vancomycin and Zosyn (07/06), now cefazolin per ID recs. Keflex for 2 weeks started 07/21/19 -Repeat blood cultures are negative -Infectious disease consult, appreciate recs -Palliative care consult appreciated. Medical application in process. [facility] informed and accepted #Hypernatremia- resolved encourage PO intake # Lice - primerin treatment - Ordered to clip hair as persistent lice noted despite 2 shampoo treatment #Liver cirrhosis secondary to EtOH # ETOH withdrawal. Discontinue Libirum - DF 31 -MELD 15 on admission -Abdominal ultrasound reviewed -Status post paracentesis 07/05/2019 with removal of 8 L. -Albumin for BP support as needed -Supportive care - lactulose CO - Repeat paracentesis 07/16. Recheck INR, VIT K and ffp as needed check ammonia #Anemia, likely might multifactorial including acute blood loss anemia, anemia of chronic disease -Hematology consult, appreciate recs -Iron panel: Reviewed -Low folate: Replace -B12 within normal limits above 800 -GI consult, appreciate recs. HOLD OFF NGT for now due to risk with possible esophageal varices. PENDING EGD per GI decision. Patient is gradually waking up and eating is still a problem. MONITOR closely as he is now 9 days into the Hospital stay. #Thrombocytopenia -due to cirrhosis- stable #Substance abuse -Nodular liver in ultrasound suggestive of cirrhosis -Check hepatitis and HIV: hiv neg, hepatitis panel negative -Social work Consult - Psyche consult, appreciate recs #Hypokalemia Replace as needed, will replace today # Hypomagnesemia Replace today # Hypocalcemia - replace as needed #Dysphagia -Etiology due to agitation, likely due underlying hepatic encephalopathy vs side effect of Ativan #full code Per PT, out of chair to bed with sitter # Disposition SW and CM follow up needed. Homeless. ?hospice. palliative care consult The time of my note may not reflect the time of my patient encounter. I spent 40 minutes on this encounter, greater than 50 percent in counseling and care coordination Subjective Date patient seen: Jul 29, 2019 ROS Limited/Unobtainable: Yes Allergies: Coded Allergies: No Known Allergies (Unverified , 07/03/19) Subjective seen and examined sitting in chair awake calm mental status waxing and waning but better on oral antibiotics with keflex for mssa bacteremia ROS unable to obtain due to mental status Objective Last 24 Hour Vital Signs Date Time Temp Pulse Resp B/P (MAP) Pulse Ox O2 Delivery O2 Flow Rate FiO2 07/29/19 04:00 97.6 100 18 121/73 (89) 98 07/29/19 00:00 98.6 107 16 117/73 (88) 96 07/28/19 21:00 Room Air 07/28/19 20:00 98.4 99 20 121/79 (93) 96 07/28/19 16:00 98.0 88 17 121/72 (88) 98 07/28/19 12:00 97.8 86 18 117/78 (91) 98 Intake and Output 07/28/19 07/29/19 19:00 07:00 Intake Total 640 ml Balance 640 ml Intake Oral 640 ml # Voids 3 3 # Bowel Movements 2 1 Laboratory Tests 07/28/19 12:57: Ammonia 28 07/29/19 05:25: White Blood Count 7.0, Red Blood Count 2.64L, Hemoglobin 7.5L, Hematocrit 24.4L , Mean Corpuscular Volume 92, Mean Corpuscular Hemoglobin 28.3, Mean Corpuscular Hemoglobin Concent 30.6L, Red Cell Distribution Width 20.8H, Platelet Count 109L, Mean Platelet Volume 5.7L, Neutrophils (%) (Auto) , Lymphocytes (%) (Auto) , Monocytes (%) (Auto) , Eosinophils (%) (Auto) , Basophils (%) (Auto) , Differential Total Cells Counted 100, Neutrophils % ( Manual) 67, Lymphocytes % (Manual) 19L, Monocytes % (Manual) 12H, Eosinophils % (Manual) 1, Basophils % (Manual) 1, Band Neutrophils 0, Platelet Estimate DecreasedL, Platelet Morphology Normal, Anisocytosis 2+, Sodium Level 145, Potassium Level 4.0, Chloride Level 114H, Carbon Dioxide Level 25, Blood Urea Nitrogen 6L, Creatinine 1.1, Estimat Glomerular Filtration Rate > 60, Glucose Level 87, Calcium Level 8.1L Height (Feet): 5 Height (Inches): 8.00 Weight (Pounds): 154 Objective General Appearance: moderate agitation EENT: PERRL/EOMI, normal ENT inspection Cardiovascular: normal rate Respiratory/Chest: lungs clear Abdomen: distended, hepatomegaly Edema: trace edema Neurologic: visual supervisor II-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 Jul 29, 2019 09:27
[2019-07-29] MEDS: Lactulose 20gm/30ml UDC ORAL SCH ×3 (10:03→19:07)
[2019-07-29] MEDS: Magnesium Oxide 400mg tab ORAL SCH ×3 (10:03→19:07)
[2019-07-29] MEDS: Thiamine 100mg tab ORAL SCH (10:03)
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
[2019-07-29 12:00] VITALS: BP 130/79
--- NOTE | 2019-07-29 13:48 | Hematology/Onc Progress Note ---
Assessment/Plan Assessment/Plan ASSESSMENT AND RECS # Anemia of iron deficiency in addition to suppression from etoh abuse and cirrhosis of liver, ETOH --> Anemia workup has been ordered, rule out gi bleed --> aid noted --> No evidence of hemolysis is noted, peripheral smear has been reviewed. --> Hgb goal >7. Transfuse prn. --> Hgb trend: 4.2-->7.1-->7.6 --> 7.6-->7.7-->8.9-->9.1-->8.9-->8.5->8.8-->8.9- ->9.2-->7.6-->7.5 --> IRON IV 200mg ordered x 1dose (given) --> Medications have been reviewed --> stool ob negative # Thrombocytopenia - secondary to liver cirrhosis and etoh use --> Hep panel and HIV - both negative --> US abd to evaluate for cirrhosis and hsm ordered - Hepatic surface nodularity, suggestive of cirrhosis. Ascites --> Peripheral smear ordered to evaluate for blasts /schistocytes and none significant noted --> abx and other meds have been reviewed --> ok for ppx if plt >50k w/ either heparin or lovenox --> Transfuse if Plt < 20k and fever, or if Plt < 10k without fever --> plt trend 90-->92k-->82-->92k-->85k-->104k-->122k-->126k-->109k # Coagulopathy due to liver cirrhosis secondary to Etoh --> GI is following, appreciate recs --> Abdominal ultrasound reviewed --> Supportive care --> lactulose prophylactic --> vit K on prn basis 07/15 # Substance abuse --> psych eval # Hypokalemia --> Replace, continue to monitor # Hypocalcemia --> replete Ca++ prn # Cirrhosis of the liver --> appears chronic # Dvt ppx with ambul, scds The timing of this note does not necessarily reflect the time of the patient was seen. GREATLY APPRECIATE CONSULTATION. Subjective Constitutional: Denies: no symptoms, chills, fever, malaise, weakness, other HEENT: Denies: no symptoms, eye pain, blurred vision, tearing, double vision, ear pain, ear discharge, nose pain, nose congestion, throat pain, throat swelling, mouth pain, mouth swelling, other Cardiovascular: Denies: no symptoms, chest pain, edema, irregular heart rate, lightheadedness, palpitations, syncope, other Respiratory: Denies: no symptoms, cough, shortness of breath, SOB with excertion, SOB at rest, sputum, wheezing, other Neurologic/Psychiatric: Denies: no symptoms, anxiety, depressed, emotional problems, headache, numbness, paresthesia, pre-existing deficit, seizure, tingling, tremors, weakness, other Endocrine: Denies: no symptoms, excessive sweating, flushing, intolerance to cold, intolerance to heat, increased hunger, increased thirst, increased urine, unexplained weight gain, unexplained weight loss, other Allergies: Coded Allergies: No Known Allergies (Unverified , 07/03/19) Subjective 07/05: no fevers, chills or night sweats noted, on iv iron has been started, on benzo 07/07: extremely agitated overnight, climbin out of bed, on cristina taper, h/h low 07/08: remains on abx, no f/c, no bleeding is noted, no changes 07/09: paracentesis negative for malignant cells, cxr and labs reviewed 07/10: no acute distress, still drowsy, has been attempting to get out of bed 07/11: transferred [facility], stool ob negative, h/h stable 07/12: imaging reviewed, on abx, us paracentesis, no distress 07/13: remains on librium, plt 85, hgb 8.5, no f/c, no night sweats 07/15: no bleeding, pt/ptt elevated, given vit K, no f/c, no chills noted 07/16: for repeat paracentesis, no f/c, no bleeding 07/17: us paracentesis, vs stable, no f/c, denies any pain, on abx, med reviewed 07/18: remains on ancef for now 14d as per id, no bleeding reported, no f/c 07/19: on abx, no f/c, vs stable, no sob, no acute distress, imaging reviewed 9/7: electrolytes repleted, no f/c, confused still 07/22: no events, no bleeding, labs have been reviewed, remains confused 07/23: no f/c, confused, on restraints, denies pain or comfort, on cephalexin 07/24: remains somewhat confused, on restraints, no bleeding, chills 07/25: no f/c, on restraints, seizure precaution, on cephalexin, no distress 07/26: vs stable, no f/c, agitated, refusing care/tx, hgb 7.6 repeat cbc tomorrow am 07/29: no events, no bleeding, no f/c, labs noted++ wrist restraints Objective Objective Current Medications Medications (Trade) Dose Ordered Sig/Tanja Route PRN Reason Start Time Stop Time Status Last Admin Dose Admin Cephalexin (Keflex) 500 mg Q6HR ORAL 07/21/19 18:00 08/04/19 19:00 07/29/19 12:55 Folic Acid (Folate) 1 mg DAILY ORAL 07/20/19 09:00 08/03/19 10:29 07/29/19 10:04 Lactulose (Cephulac) 20 gm THREE TIMES A DAY ORAL 07/20/19 09:00 08/04/19 12:59 07/29/19 12:55 Lorazepam (Ativan) 0.5 mg Q4H PRN ORAL For Anxiety 07/26/19 10:15 08/02/19 10:14 07/29/19 10:03 Magnesium Oxide (Mag-Ox 400mg) 400 mg THREE TIMES A DAY ORAL 07/26/19 13:00 08/25/19 12:59 07/29/19 12:55 Pantoprazole (Protonix) 40 mg EVERY 12 HOURS ORAL 07/26/19 21:00 08/25/19 20:59 07/29/19 10:03 Potassium Chloride (K-Dur) 40 meq DAILY ORAL 07/20/19 09:00 08/15/19 08:59 07/29/19 10:03 Thiamine HCl (Vitamin B1) 100 mg DAILY ORAL 07/20/19 09:00 08/03/19 10:29 07/29/19 10:03 Last 24 Hour Vital Signs Date Time Temp Pulse Resp B/P (MAP) Pulse Ox O2 Delivery O2 Flow Rate FiO2 07/29/19 12:00 97.4 82 18 130/79 (96) 98 07/29/19 09:00 Room Air 07/29/19 08:00 97.4 64 18 122/76 (91) 98 07/29/19 04:00 97.6 100 18 121/73 (89) 98 07/29/19 00:00 98.6 107 16 117/73 (88) 96 07/28/19 21:00 Room Air 07/28/19 20:00 98.4 99 20 121/79 (93) 96 07/28/19 16:00 98.0 88 17 121/72 (88) 98 07/28/19 12:00 97.8 86 18 117/78 (91) 98 07/28/19 08:33 Room Air 07/28/19 08:00 98.0 72 19 120/76 (91) 97 07/28/19 04:00 98.1 92 18 118/84 (95) 98 07/28/19 00:00 97.7 97 18 128/81 (97) 97 07/27/19 21:00 Room Air 07/27/19 20:00 98.1 101 20 128/84 (99) 96 07/27/19 16:00 98.0 67 18 122/81 (95) 97 Intake and Output 07/28/19 07/29/19 19:00 07:00 Intake Total 640 ml Balance 640 ml Intake Oral 640 ml # Voids 3 3 # Bowel Movements 2 1 Labs Test 07/27/19 06:40 07/28/19 12:57 07/29/19 05:25 White Blood Count 6.6 K/UL (4.8-10.8) 7.0 K/UL (4.8-10.8) Red Blood Count 2.83 M/UL (4.70-6.10) 2.64 M/UL (4.70-6.10) Hemoglobin 8.0 G/DL (14.2-18.0) 7.5 G/DL (14.2-18.0) Hematocrit 26.4 % (42.0-52.0) 24.4 % (42.0-52.0) Mean Corpuscular Volume 93 FL (80-99) 92 FL (80-99) Mean Corpuscular Hemoglobin 28.5 PG (27.0-31.0) 28.3 PG (27.0-31.0) Mean Corpuscular Hemoglobin Concent 30.5 G/DL (32.0-36.0) 30.6 G/DL (32.0-36.0) Red Cell Distribution Width 20.2 % (11.6-14.8) 20.8 % (11.6-14.8) Platelet Count 116 K/UL (150-450) 109 K/UL (150-450) Mean Platelet Volume 6.8 FL (6.5-10.1) 5.7 FL (6.5-10.1) Neutrophils (%) (Auto) 60.4 % (45.0-75.0) % (45.0-75.0) Lymphocytes (%) (Auto) 24.9 % (20.0-45.0) % (20.0-45.0) Monocytes (%) (Auto) 10.8 % (1.0-10.0) % (1.0-10.0) Eosinophils (%) (Auto) 2.4 % (0.0-3.0) % (0.0-3.0) Basophils (%) (Auto) 1.6 % (0.0-2.0) % (0.0-2.0) Sodium Level 143 MMOL/L (136-145) 145 MMOL/L (136-145) Potassium Level 3.4 MMOL/L (3.5-5.1) 4.0 MMOL/L (3.5-5.1) Chloride Level 112 MMOL/L (98-107) 114 MMOL/L (98-107) Carbon Dioxide Level 25 MMOL/L (21-32) 25 MMOL/L (21-32) Anion Gap 6 mmol/L (5-15) Blood Urea Nitrogen 5 mg/dL (7-18) 6 mg/dL (7-18) Creatinine 1.1 MG/DL (0.55-1.30) 1.1 MG/DL (0.55-1.30) Estimat Glomerular Filtration Rate > 60 mL/min (>60) > 60 mL/min (>60) Glucose Level 105 MG/DL (74-106) 87 MG/DL (74-106) Calcium Level 7.9 MG/DL (8.5-10.1) 8.1 MG/DL (8.5-10.1) Ammonia 28 umol/L (11-32) Differential Total Cells Counted 100 Neutrophils % (Manual) 67 % (45-75) Lymphocytes % (Manual) 19 % (20-45) Monocytes % (Manual) 12 % (1-10) Eosinophils % (Manual) 1 % (0-3) Basophils % (Manual) 1 % (0-2) Band Neutrophils 0 % (0-8) Platelet Estimate Decreased Platelet Morphology Normal Anisocytosis 2+ Height (Feet): 5 Height (Inches): 8.00 Weight (Pounds): 154 Objective Physical Exam: Vitals: reviewed General Appearance: NAD HEENT: normocephalic, atraumatic Neck: non-tender, normal alignment Respiratory/Chest: normal breath sounds bilaterally Cardiovascular/Chest: normal peripheral pulses, normal rate Abdomen: normal bowel sounds, soft, nontender +++ ascites Avery Guo MD Jul 29, 2019 13:47
--- NOTE | 2019-07-29 14:02 | NUR ---
RD ASSESSMENT & RECOMMENDATIONS SEE CARE ACTIVITY FOR COMPLETE ASSESSMENT DAILY ESTIMATED NEEDS: Needs based on Cirrhosis/ 60kg abw 25-30 kcals/kg 7834-9727 total kcals 1-1.5 g protein/kg 60-90 g total protein 25-30 mL/kg 6734-8001 total fluid mLs NUTRITION DIAGNOSIS: * Altered nutrition related lab values R/T cirrhosis, h/o ETOH abuse, clinical condition as evidenced by elev AST and T bili (1.4), elev NH3 (52 -> now wnl), low K (3.0-> wnl), low mag (1.5), low folate (5.1) * Swallowing difficulty R/T dysphagia, confusion, encephalopathy as evidenced by pt on pureed moist texture w/ NTL, w/ poor and variable PO intake. CURRENT DIET: Cardiac, pureed moist w/ NTL + ensure TID PO DIET RECOMMENDATIONS: Liberalize diet to LOW NA/ texture per HEEL EDGE INKER MACHINE ADDITIONAL RECOMMENDATIONS: * Calibrated bedscale wt for accurate CBW * HEEL EDGE INKER MACHINE re-eval for possible texture upgrade * Maintain Ensure Enlive TID w/ meals * Add MVI x 1 * Monitor lytes daily w/ diarrhea, replete as needed, check updated mag * Rec appetite stimulant
[2019-07-29 16:00] VITALS: BP 127/51
--- NOTE | 2019-07-29 16:19 | NUR ---
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 97.4 HR 82 RR 18 B/P 130/78 RA 98% H/H 7.5/24.4 IS: PROTONIX PO KEFLEX PO LACTULOSE PO MED/SURG STATUS
--- NOTE | 2019-07-29 19:41 | NUR ---
HAND-OFF: Report given to JOSEFINA SCOTT. Addendum: 07/29/19 at 1943 by Vega Melendez RN HANDOFF GIVEN TO JOSEFINA DOMINGUEZ
[2019-07-29 20:00] VITALS: BP 130/81
--- NOTE | 2019-07-29 20:00 | NUR ---
NURSE NOTES: Patient received in bed, awake, confused. On bilateral soft wrist restraints, pulses and movement present. no swelling, skin intact. Bed alarm on, siderailsx3 up, padded x2 for precaution. Will monitor.
[2019-07-30] VITALS: BP 126/87
[2019-07-30 04:00] VITALS: BP 139/99
[2019-07-30] MEDS: LORazepam 0.5mg tab ORAL PRN ×2 (05:15→12:24)
[2019-07-30] MEDS: Cephalexin 500mg cap ORAL SCH ×4 (05:15→23:21)
[2019-07-30 06:14] LABS: HEMATOCRIT 23.9 % (42.0-52.0); HEMOGLOBIN 7.4 G/DL (14.2-18.0); MEAN CORPUSCULAR VOLUME 94 FL (80-99); PLATELET COUNT 112 K/UL (150-450); RED BLOOD COUNT 2.53 M/UL (4.70-6.10); RED CELL DISTRIBUTION WIDTH 19.4 % (11.6-14.8)
[2019-07-30 06:31] LABS: ANION GAP 6 mmol/L (5-15); BLOOD UREA NITROGEN 5 mg/dL (7-18); CALCIUM 8.2 MG/DL (8.5-10.1); CARBON DIOXIDE 26 MMOL/L (21-32); CHLORIDE 112 MMOL/L (98-107); CREATININE 1.1 MG/DL (0.55-1.30); POTASSIUM 3.7 MMOL/L (3.5-5.1); SODIUM 144 MMOL/L (136-145)
--- NOTE | 2019-07-30 07:04 | NUR ---
HAND-OFF: Report given to Vega ROCHA.
--- NOTE | 2019-07-30 07:23 | NUR ---
NURSE NOTES: HANDOFF RECEIVED FROM CHRISTIAN ROCHA. PATIENT RECEIVED RESTING IN BED, NO OBVIOUS SIGNS OF DISTRESS. PATIENT IS IN BILATERAL WRIST RESTRAINTS, NO SIGNS OF SWELLING IN THE ARMS OR WRISTS. PATIENT HAS NO IV ACCESS BUT IS AWARE. PATIENT IS ALERT AND ABLE TO MAKE NEEDS KNOWN, ALTHOUGH HE SPEAKS PRIMARILY KOREAN. WILL CONTINUE TO MONITOR.
[2019-07-30 08:00] VITALS: BP 112/92
[2019-07-30] MEDS: Magnesium Oxide 400mg tab ORAL SCH ×3 (08:10→17:27)
[2019-07-30] MEDS: Lactulose 20gm/30ml UDC ORAL SCH ×3 (08:10→17:28)
[2019-07-30] MEDS: Thiamine 100mg tab ORAL SCH (08:11)
--- NOTE | 2019-07-30 09:42 | General Progress Note ---
Assessment/Plan Status: stable, unchanged Assessment/Plan: 48-year-old male with past medical history of ETOH abuse presented found down. Overall improving s/p paracentesis 07/16/19 #Encephalopathy likely multifactorial including hepatic encephalopathy ( elevated ammonia), as well as sepsis with bacteremia due to MSSA. #Sepsis secondary to bacteremia due to MSSA -s/p vancomycin and Zosyn (07/06), now cefazolin per ID recs. Keflex for 2 weeks started 07/21/19 -Repeat blood cultures are negative -Infectious disease consult, appreciate recs -Palliative care consult appreciated. Medical application in process. [facility] informed [facility] accepted #Hypernatremia- resolved encourage PO intake # Lice - primerin treatment - Ordered to clip hair as persistent lice noted despite 2 shampoo treatment #Liver cirrhosis secondary to EtOH # ETOH withdrawal. Discontinue Libirum - DF 31 -MELD 15 on admission -Abdominal ultrasound reviewed -Status post paracentesis 07/05/2019 with removal of 8 L. -Albumin for BP support as needed -Supportive care - lactulose SC - Repeat paracentesis 07/16. Recheck INR, VIT K and ffp as needed check ammonia #Anemia, likely might multifactorial including acute blood loss anemia, anemia of chronic disease -Hematology consult, appreciate recs -Iron panel: Reviewed -Low folate: Replace -B12 within normal limits above 800 -GI consult, appreciate recs. HOLD OFF NGT for now due to risk with possible esophageal varices. PENDING EGD per GI decision. Patient is gradually waking up and eating is still a problem. MONITOR closely as he is now 9 days into the Hospital stay. #Thrombocytopenia -due to cirrhosis- stable #Substance abuse -Nodular liver in ultrasound suggestive of cirrhosis -Check hepatitis and HIV: hiv neg, hepatitis panel negative -Social work Consult - Psyche consult, appreciate recs #Hypokalemia Replace as needed, will replace today # Hypomagnesemia Replace today # Hypocalcemia - replace as needed #Dysphagia -Etiology due to agitation, likely due underlying hepatic encephalopathy vs side effect of Ativan #full code Per PT, out of chair to bed with sitter # Disposition SW and CM follow up needed. Homeless. ?hospice. palliative care consult The time of my note may not reflect the time of my patient encounter. I spent 40 minutes on this encounter, greater than 50 percent in counseling and care coordination Subjective Date patient seen: Jul 30, 2019 ROS Limited/Unobtainable: Yes Allergies: Coded Allergies: No Known Allergies (Unverified , 07/03/19) Subjective seen and examined sitting in chair awake calm mental status waxing and waning but better on oral antibiotics with keflex for mssa bacteremia ROS unable to obtain due to mental status Objective Last 24 Hour Vital Signs Date Time Temp Pulse Resp B/P (MAP) Pulse Ox O2 Delivery O2 Flow Rate FiO2 07/30/19 08:00 98.2 93 18 112/92 (99) 99 07/30/19 04:00 97.9 100 21 139/99 (112) 99 07/30/19 00:00 97.8 103 21 126/87 (100) 100 07/29/19 21:00 Room Air 07/29/19 20:00 98.1 108 22 130/81 (97) 96 07/29/19 16:00 98.6 67 18 127/51 (76) 96 07/29/19 12:00 97.4 82 18 130/79 (96) 98 Intake and Output 07/29/19 07/30/19 19:00 07:00 Intake Total 900 ml Balance 900 ml Other 900 ml # Voids 2 Laboratory Tests 07/30/19 05:23: White Blood Count 6.0, Red Blood Count 2.53L, Hemoglobin 7.4L, Hematocrit 23.9L , Mean Corpuscular Volume 94, Mean Corpuscular Hemoglobin 29.1, Mean Corpuscular Hemoglobin Concent 30.8L, Red Cell Distribution Width 19.4H, Platelet Count 112L, Mean Platelet Volume 6.3L, Neutrophils (%) (Auto) , Lymphocytes (%) (Auto) , Monocytes (%) (Auto) , Eosinophils (%) (Auto) , Basophils (%) (Auto) , Sodium Level 144, Potassium Level 3.7, Chloride Level 112H, Carbon Dioxide Level 26, Anion Gap 6, Blood Urea Nitrogen 5L, Creatinine 1.1, Estimat Glomerular Filtration Rate > 60, Glucose Level 85, Calcium Level 8.2L Height (Feet): 5 Height (Inches): 8.00 Weight (Pounds): 154 Objective General Appearance: moderate agitation EENT: PERRL/EOMI, normal ENT inspection Cardiovascular: normal rate Respiratory/Chest: lungs clear Abdomen: distended, hepatomegaly Edema: trace edema Neurologic: engineering project manager II-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 Jul 30, 2019 09:42
--- NOTE | 2019-07-30 10:31 | NUR ---
NURSE NOTES: PATIENT IS ABLE TO GET OUT OF RESTRAINTS. FOUND PATIENT IN THE DOORWAY OF THE ROOM, PATIENT VERY UNSTEADY ON HIS FEET, WAS CLINGING ON TO THE DOOR WAY AND USING THE BED FOR SUPPORT. HELPED PATIENT TO THE CHAIR WHILST I CHANGED THE LINEN. THEN PLACED PATIENT BACK INTO BED, RE-APPLIED RESTRAINTS AND PUT THE BED ALARM BACK ON. CONCERN FOR PATIENT SAFETY IF HE KEEPS REMOVING RESTRAINTS. SUGGEST MOVING PATIENT CLOSER TO THE NURSES STATION.
--- NOTE | 2019-07-30 11:02 | NUR ---
NURSE NOTES: PATIENT NOW MOVED TO BED 411-2 CLOSER TO THE NURSES STATION FOR CLOSER OBSERVATION.
--- NOTE | 2019-07-30 11:35 | NUR ---
NURSE NOTES: PHYSICAL THERAPY VISITED PATIENT AND RECOMMENDED THAT THE PATIENT SIT IN A CHAIR TO HELP BUILD THE PATIENTS STRENGTH FOR DISCHARGE. PATIENT IS CURRENTLY IN RESTRAINTS. DR BOWIE PLACED ORDER FOR PATIENT TO SIT IN CHAIR WITH A SITTER HOWEVER, THE PATIENT DOES NOT HAVE A SITTER. I CONTACTED DR BOWIE AND SPOKE TO HER, SHE INSTRUCTED THAT PATIENT CAN SIT IN CHAIR UNDER SUPERVISION.
--- NOTE | 2019-07-30 11:49 | Pulmonology Progress Note ---
Assessment/Plan Problems: (1) End stage liver disease (2) Coagulopathy (3) Hepatic encephalopathy Assessment/Plan dc iv fluids symptomatic treatment Medical application in process. [facility] informed [facility]. awaiting placement. d/c planning in progress Subjective Interval Events: awake, more cooperative Allergies: Coded Allergies: No Known Allergies (Unverified , 07/03/19) Objective Last 24 Hour Vital Signs Date Time Temp Pulse Resp B/P (MAP) Pulse Ox O2 Delivery O2 Flow Rate FiO2 07/30/19 09:00 Room Air 07/30/19 08:00 98.2 93 18 112/92 (99) 99 07/30/19 04:00 97.9 100 21 139/99 (112) 99 07/30/19 00:00 97.8 103 21 126/87 (100) 100 07/29/19 21:00 Room Air 07/29/19 20:00 98.1 108 22 130/81 (97) 96 07/29/19 16:00 98.6 67 18 127/51 (76) 96 07/29/19 12:00 97.4 82 18 130/79 (96) 98 Intake and Output 07/29/19 07/30/19 19:00 07:00 Intake Total 900 ml Balance 900 ml Other 900 ml # Voids 2 General Appearance: cachetic HEENT: normocephalic, atraumatic Respiratory/Chest: chest wall non-tender, lungs clear Cardiovascular: normal peripheral pulses, normal rate Abdomen: distended Genitourinary: normal external genitalia Extremities: no clubbing Skin: no rash Laboratory Tests 07/30/19 05:23: White Blood Count 6.0, Red Blood Count 2.53L, Hemoglobin 7.4L, Hematocrit 23.9L , Mean Corpuscular Volume 94, Mean Corpuscular Hemoglobin 29.1, Mean Corpuscular Hemoglobin Concent 30.8L, Red Cell Distribution Width 19.4H, Platelet Count 112L, Mean Platelet Volume 6.3L, Neutrophils (%) (Auto) , Lymphocytes (%) (Auto) , Monocytes (%) (Auto) , Eosinophils (%) (Auto) , Basophils (%) (Auto) , Sodium Level 144, Potassium Level 3.7, Chloride Level 112H, Carbon Dioxide Level 26, Anion Gap 6, Blood Urea Nitrogen 5L, Creatinine 1.1, Estimat Glomerular Filtration Rate > 60, Glucose Level 85, Calcium Level 8.2L Current Medications Medications (Trade) Dose Ordered Sig/Tanja Route PRN Reason Start Time Stop Time Status Last Admin Dose Admin Cephalexin (Keflex) 500 mg Q6HR ORAL 07/21/19 18:00 08/04/19 19:00 07/30/19 11:45 Folic Acid (Folate) 1 mg DAILY ORAL 07/20/19 09:00 08/03/19 10:29 07/30/19 08:11 Lactulose (Cephulac) 20 gm THREE TIMES A DAY ORAL 07/20/19 09:00 08/04/19 12:59 07/30/19 08:10 Lorazepam (Ativan) 0.5 mg Q4H PRN ORAL For Anxiety 07/26/19 10:15 08/02/19 10:14 07/30/19 05:15 Magnesium Oxide (Mag-Ox 400mg) 400 mg THREE TIMES A DAY ORAL 07/26/19 13:00 08/25/19 12:59 07/30/19 08:10 Pantoprazole (Protonix) 40 mg EVERY 12 HOURS ORAL 07/26/19 21:00 08/25/19 20:59 07/30/19 08:11 Potassium Chloride (K-Dur) 40 meq DAILY ORAL 07/20/19 09:00 08/15/19 08:59 07/30/19 08:11 Thiamine HCl (Vitamin B1) 100 mg DAILY ORAL 07/20/19 09:00 08/03/19 10:29 07/30/19 08:11 Ronnell Card MD Jul 30, 2019 11:49
[2019-07-30 12:00] VITALS: BP 152/87
--- NOTE | 2019-07-30 12:14 | NUR ---
NURSE NOTES: PATIENT ABLE TO GET OUT OF RESTRAINTS. PATIENT OBSERVED WALKING IN THE ROOM, VERY UNSTEADY GAIT. OBSERVED PATIENT TRYING TO EAT A GLOVE. PATIENT VERY DIFFICULT TO MANAGE. CONSTANTLY GETTING OUT OF BED.
--- NOTE | 2019-07-30 14:07 | NUR ---
SWALLOW/SPEECH THERAPY NOTE: SWALLOW STATUS: GOALS MET FOR GOOD INTAKE OF PUREED AND NECTAR THICK LIQUIDS. REASSESSED AND PT IS ABLE TO TOLERATE THIN LIQUIDS SEQUENTIAL SIPS VIA STRAW W/O OVERT ASPIRATION. GIVEN MASTICATED SOLIDS 1/2 CRACKER, ABLE TO CHEW W/IN 7 SECONDS AND SWALLOW W/O OVERT ASPIRATION. 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 UNABLE TO COMPLETE MOD BARIUM SWALLOW STUDY TO FURTHER ASSESS SWALLOW, DETERMINE SILENT ASPIRATION RISK, AND ATTEMPT TRIAL TX DUE TO SCHEDULE CONFLICTS. SPEECH/COG-LINGUISTIC SKILLS: STILL VERY CONFUSED AND TRYING TO GET OUT OF BED. ABLE TO EXPRESS SOME BASIC NEEDS IN BELGIAN BUT NEEDS TO REPEAT SPEECH IN LESS PRECISE AND SOFTER 50% INTELLIGIBLE. PLAN UPGRADE DIET TO [facility] SOFT CHOPPED AND THIN LIQUIDS. COMPLETE MOD BARIUM SWALLOW STUDY IP OR OP IF DC. COMPLETE FORMAL SPEECH/LANGUAGE/COGNITIVE EVAL/TX IN BELGIAN ORIENT FREQUENTLY TO PLACE/TIME/SITUATION Addendum: 07/30/19 at 1408 by MIKA GRAVES SKIFF OPERATOR THE PATIENT IS ON FALL PRECAUTIONS AND NEEDS RESTRAINTS. HE IS ALERT AND RESTLESS.
--- NOTE | 2019-07-30 14:30 | Hematology/Onc Progress Note ---
Assessment/Plan Assessment/Plan ASSESSMENT AND RECS # Anemia of iron deficiency in addition to suppression from etoh abuse and cirrhosis of liver, ETOH --> Anemia workup has been ordered, rule out gi bleed --> aid noted --> No evidence of hemolysis is noted, peripheral smear has been reviewed. --> Hgb goal >7. Transfuse prn. --> Hgb trend: 4.2-->7.1-->7.6 --> 7.6-->7.7-->8.9-->9.1-->8.9-->8.5->8.8-->8.9- ->9.2-->7.6-->7.5->7.4 --> IRON IV 200mg ordered x 1dose (given) --> Medications have been reviewed --> stool ob negative # Thrombocytopenia - secondary to liver cirrhosis and etoh use --> Hep panel and HIV - both negative --> US abd to evaluate for cirrhosis and hsm ordered - Hepatic surface nodularity, suggestive of cirrhosis. Ascites --> Peripheral smear ordered to evaluate for blasts /schistocytes and none significant noted --> abx and other meds have been reviewed --> ok for ppx if plt >50k w/ either heparin or lovenox --> Transfuse if Plt < 20k and fever, or if Plt < 10k without fever --> plt trend 90-->92k-->82-->92k-->85k-->104k-->122k-->126k-->109k-->112k # Coagulopathy due to liver cirrhosis secondary to Etoh --> GI is following, appreciate recs --> Abdominal ultrasound reviewed --> Supportive care --> lactulose prophylactic --> vit K on prn basis 07/15 # Substance abuse --> psych eval # Hypokalemia --> Replace, continue to monitor # Hypocalcemia --> replete Ca++ prn # Cirrhosis of the liver --> appears chronic # Dvt ppx with ambul, scds The timing of this note does not necessarily reflect the time of the patient was seen. GREATLY APPRECIATE CONSULTATION. Subjective Constitutional: Denies: no symptoms, chills, fever, malaise, weakness, other HEENT: Denies: no symptoms, eye pain, blurred vision, tearing, double vision, ear pain, ear discharge, nose pain, nose congestion, throat pain, throat swelling, mouth pain, mouth swelling, other Cardiovascular: Denies: no symptoms, chest pain, edema, irregular heart rate, lightheadedness, palpitations, syncope, other Genitourinary: Denies: no symptoms, burning, discharge, frequency, flank pain, hematuria, incontinence, pain, urgency, other Neurologic/Psychiatric: Denies: no symptoms, anxiety, depressed, emotional problems, headache, numbness, paresthesia, pre-existing deficit, seizure, tingling, tremors, weakness, other Endocrine: Denies: no symptoms, excessive sweating, flushing, intolerance to cold, intolerance to heat, increased hunger, increased thirst, increased urine, unexplained weight gain, unexplained weight loss, other Allergies: Coded Allergies: No Known Allergies (Unverified , 07/03/19) Subjective 07/05: no fevers, chills or night sweats noted, on iv iron has been started, on benzo 07/07: extremely agitated overnight, climbin out of bed, on cristina taper, h/h low 07/08: remains on abx, no f/c, no bleeding is noted, no changes 07/09: paracentesis negative for malignant cells, cxr and labs reviewed 07/10: no acute distress, still drowsy, has been attempting to get out of bed 07/11: [facility], stool ob negative, h/h stable 07/12: imaging reviewed, on abx, us paracentesis, no distress 07/13: remains on librium, plt 85, hgb 8.5, no f/c, no night sweats 07/15: no bleeding, pt/ptt elevated, given vit K, no f/c, no chills noted 07/16: for repeat paracentesis, no f/c, no bleeding 07/17: us paracentesis, vs stable, no f/c, denies any pain, on abx, med reviewed 07/18: remains on ancef for now 14d as per id, no bleeding reported, no f/c 07/19: on abx, no f/c, vs stable, no sob, no acute distress, imaging reviewed 07/20: electrolytes repleted, no f/c, confused still 07/22: no events, no bleeding, labs have been reviewed, remains confused 07/23: no f/c, confused, on restraints, denies pain or comfort, on cephalexin 07/24: remains somewhat confused, on restraints, no bleeding, chills 07/25: no f/c, on restraints, seizure precaution, on cephalexin, no distress 07/26: vs stable, no f/c, agitated, refusing care/tx, hgb 7.6 repeat cbc tomorrow am 07/29: no events, no bleeding, no f/c, labs noted++ wrist restraints 07/30: getting out of restraints, no f/c, no bleeding noted Objective Objective Current Medications Medications (Trade) Dose Ordered Sig/Tanja Route PRN Reason Start Time Stop Time Status Last Admin Dose Admin Cephalexin (Keflex) 500 mg Q6HR ORAL 07/21/19 18:00 08/04/19 19:00 07/30/19 11:45 Folic Acid (Folate) 1 mg DAILY ORAL 07/20/19 09:00 08/03/19 10:29 07/30/19 08:11 Lactulose (Cephulac) 20 gm THREE TIMES A DAY ORAL 07/20/19 09:00 08/04/19 12:59 07/30/19 12:24 Lorazepam (Ativan) 0.5 mg Q4H PRN ORAL For Anxiety 07/26/19 10:15 08/02/19 10:14 07/30/19 12:24 Magnesium Oxide (Mag-Ox 400mg) 400 mg THREE TIMES A DAY ORAL 07/26/19 13:00 08/25/19 12:59 07/30/19 12:24 Pantoprazole (Protonix) 40 mg EVERY 12 HOURS ORAL 07/26/19 21:00 08/25/19 20:59 07/30/19 08:11 Potassium Chloride (K-Dur) 40 meq DAILY ORAL 07/20/19 09:00 08/15/19 08:59 07/30/19 08:11 Thiamine HCl (Vitamin B1) 100 mg DAILY ORAL 07/20/19 09:00 08/03/19 10:29 07/30/19 08:11 Last 24 Hour Vital Signs Date Time Temp Pulse Resp B/P (MAP) Pulse Ox O2 Delivery O2 Flow Rate FiO2 07/30/19 09:00 Room Air 07/30/19 08:00 98.2 93 18 112/92 (99) 99 07/30/19 04:00 97.9 100 21 139/99 (112) 99 07/30/19 00:00 97.8 103 21 126/87 (100) 100 07/29/19 21:00 Room Air 07/29/19 20:00 98.1 108 22 130/81 (97) 96 07/29/19 16:00 98.6 67 18 127/51 (76) 96 07/29/19 12:00 97.4 82 18 130/79 (96) 98 07/29/19 09:00 Room Air 07/29/19 08:00 97.4 64 18 122/76 (91) 98 07/29/19 04:00 97.6 100 18 121/73 (89) 98 07/29/19 00:00 98.6 107 16 117/73 (88) 96 07/28/19 21:00 Room Air 07/28/19 20:00 98.4 99 20 121/79 (93) 96 07/28/19 16:00 98.0 88 17 121/72 (88) 98 Intake and Output 07/29/19 07/30/19 19:00 07:00 Intake Total 900 ml Balance 900 ml Other 900 ml # Voids 2 Labs Test 07/28/19 12:57 07/29/19 05:25 07/30/19 05:23 Ammonia 28 umol/L (11-32) White Blood Count 7.0 K/UL (4.8-10.8) 6.0 K/UL (4.8-10.8) Red Blood Count 2.64 M/UL (4.70-6.10) 2.53 M/UL (4.70-6.10) Hemoglobin 7.5 G/DL (14.2-18.0) 7.4 G/DL (14.2-18.0) Hematocrit 24.4 % (42.0-52.0) 23.9 % (42.0-52.0) Mean Corpuscular Volume 92 FL (80-99) 94 FL (80-99) Mean Corpuscular Hemoglobin 28.3 PG (27.0-31.0) 29.1 PG (27.0-31.0) Mean Corpuscular Hemoglobin Concent 30.6 G/DL (32.0-36.0) 30.8 G/DL (32.0-36.0) Red Cell Distribution Width 20.8 % (11.6-14.8) 19.4 % (11.6-14.8) Platelet Count 109 K/UL (150-450) 112 K/UL (150-450) Mean Platelet Volume 5.7 FL (6.5-10.1) 6.3 FL (6.5-10.1) Neutrophils (%) (Auto) % (45.0-75.0) % (45.0-75.0) Lymphocytes (%) (Auto) % (20.0-45.0) % (20.0-45.0) Monocytes (%) (Auto) % (1.0-10.0) % (1.0-10.0) Eosinophils (%) (Auto) % (0.0-3.0) % (0.0-3.0) Basophils (%) (Auto) % (0.0-2.0) % (0.0-2.0) Differential Total Cells Counted 100 Neutrophils % (Manual) 67 % (45-75) Lymphocytes % (Manual) 19 % (20-45) Monocytes % (Manual) 12 % (1-10) Eosinophils % (Manual) 1 % (0-3) Basophils % (Manual) 1 % (0-2) Band Neutrophils 0 % (0-8) Platelet Estimate Decreased Platelet Morphology Normal Anisocytosis 2+ Sodium Level 145 MMOL/L (136-145) 144 MMOL/L (136-145) Potassium Level 4.0 MMOL/L (3.5-5.1) 3.7 MMOL/L (3.5-5.1) Chloride Level 114 MMOL/L (98-107) 112 MMOL/L (98-107) Carbon Dioxide Level 25 MMOL/L (21-32) 26 MMOL/L (21-32) Blood Urea Nitrogen 6 mg/dL (7-18) 5 mg/dL (7-18) Creatinine 1.1 MG/DL (0.55-1.30) 1.1 MG/DL (0.55-1.30) Estimat Glomerular Filtration Rate > 60 mL/min (>60) > 60 mL/min (>60) Glucose Level 87 MG/DL (74-106) 85 MG/DL (74-106) Calcium Level 8.1 MG/DL (8.5-10.1) 8.2 MG/DL (8.5-10.1) Anion Gap 6 mmol/L (5-15) Height (Feet): 5 Height (Inches): 8.00 Weight (Pounds): 154 Objective Physical Exam: Vitals: reviewed General Appearance: NAD HEENT: normocephalic, atraumatic Neck: non-tender, normal alignment Respiratory/Chest: normal breath sounds bilaterally Cardiovascular/Chest: normal peripheral pulses, normal rate Abdomen: normal bowel sounds, soft, nontender +++ ascites Avery Guo MD Jul 30, 2019 14:30
[2019-07-30 16:00] VITALS: BP 140/80
--- NOTE | 2019-07-30 16:00 | NUR ---
NURSE NOTES: EQUIPMENT TECH INFORMED ME TO CONTACT DR MARCUS FOR ORDERS. EXPLAINED TO AMRIT THAT PATIENT IS CONSTANTLY GETTING OUT OF RESTRAINTS, THAT HE HAS UNSTEADY GAIT AND IS CONFUSED AND IMPULSIVE- PATIENT TRIED EATING A GLOVE. AMRIT GAVE ORDERS WHICH CAN BE FOUND IN THE EMAR. PATIENT ALSO NOW HAS HEAD OF BED ELEVATED 30 DEGREES.
--- NOTE | 2019-07-30 17:18 | NUR ---
NURSE NOTES: HELPER TEACHER CAME AND RE-EVALUATED PATIENT AND RECOMMENDED MECHANICAL SOFT FINELY CHOPPED DIET, THIN LIQUIDS OK. STATED THAT PATIENT MUST BE ALERT. DR MARCUS GAVE NEW ORDERS FOR LIBRIUM SCHEDULED TID DAILY, DID NOT CHANGE THE DIET ORDER CONCERNED THAT THE LIBRIUM WILL CAUSE THE PATIENT TO BECOME DROWSY AND INCREASE THE RISK FOR ASPIRATION. WILL NOTIFY ONCOMING TRUCK SALES MANAGER NURSE.
[2019-07-30] MEDS: chlordiazePOXIDE 25mg Cap ORAL SCH (17:27)
--- NOTE | 2019-07-30 19:40 | NUR ---
NURSE NOTES: Patient received in bed, restless, on bilateral soft wrist restraints. Will monitor.
--- NOTE | 2019-07-30 21:00 | NUR ---
NURSE NOTES: Patient able to get out of restraints and attempted to get out of bed. Assisted back to bed and reapplied restraints. Notified Dr. Cruz.
[2019-07-30] MEDS ORDERED: DiphenhydrAMINE 50mg/ml Inj IM SCH (23:45)
[2019-07-30] MEDS ORDERED: LORazepam Inj 2mg/ml 1ml IM SCH (23:45)
[2019-07-31 00:04] VITALS: BP 109/78
[2019-07-31 04:00] VITALS: BP 151/82
[2019-07-31] MEDS: Cephalexin 500mg cap ORAL SCH ×4 (06:08→23:53)
[2019-07-31 07:03] LABS: HEMATOCRIT 25.4 % (42.0-52.0); HEMOGLOBIN 7.7 G/DL (14.2-18.0); MEAN CORPUSCULAR VOLUME 94 FL (80-99); PLATELET COUNT 115 K/UL (150-450); RED BLOOD COUNT 2.71 M/UL (4.70-6.10); RED CELL DISTRIBUTION WIDTH 20.3 % (11.6-14.8); WHITE BLOOD COUNT 6.3 K/UL (4.8-10.8)
[2019-07-31 07:19] LABS: ANION GAP 6 mmol/L (5-15); BLOOD UREA NITROGEN 5 mg/dL (7-18); CALCIUM 8.1 MG/DL (8.5-10.1); CARBON DIOXIDE 26 MMOL/L (21-32); CHLORIDE 112 MMOL/L (98-107); CREATININE 0.9 MG/DL (0.55-1.30); POTASSIUM 3.7 MMOL/L (3.5-5.1); SODIUM 144 MMOL/L (136-145)
--- NOTE | 2019-07-31 07:44 | NUR ---
HAND-OFF: Report given to Darlyn ROCHA.
[2019-07-31 08:00] VITALS: BP 125/79
--- NOTE | 2019-07-31 08:26 | NUR ---
NURSE NOTES: Patient is alert and awake. No s/s of distress. Patient is on bilateral soft wrist restraints. Patient is near nurse's station. Will continue to monitor.
[2019-07-31] MEDS: Lactulose 20gm/30ml UDC ORAL SCH ×3 (08:49→17:19)
[2019-07-31] MEDS: chlordiazePOXIDE 25mg Cap ORAL SCH ×3 (08:49→17:19)
[2019-07-31] MEDS: Thiamine 100mg tab ORAL SCH (08:49)
[2019-07-31] MEDS: Magnesium Oxide 400mg tab ORAL SCH ×3 (08:49→17:19)
--- NOTE | 2019-07-31 09:15 | Hematology/Onc Progress Note ---
Assessment/Plan Assessment/Plan ASSESSMENT AND RECS # Anemia of iron deficiency in addition to suppression from etoh abuse and cirrhosis of liver, ETOH --> Anemia workup has been ordered, rule out gi bleed --> aid noted --> No evidence of hemolysis is noted, peripheral smear has been reviewed. --> Hgb goal >7. Transfuse prn. --> Hgb trend: 4.2-->7.1-->7.6 --> 7.6-->7.7-->8.9-->9.1-->8.9-->8.5->8.8-->8.9- ->9.2-->7.6-->7.5->7.4 --> IRON IV 200mg ordered x 1dose (given) --> Medications have been reviewed --> stool ob negative # Thrombocytopenia - secondary to liver cirrhosis and etoh use --> Hep panel and HIV - both negative --> US abd to evaluate for cirrhosis and hsm ordered - Hepatic surface nodularity, suggestive of cirrhosis. Ascites --> Peripheral smear ordered to evaluate for blasts /schistocytes and none significant noted --> abx and other meds have been reviewed --> ok for ppx if plt >50k w/ either heparin or lovenox --> Transfuse if Plt < 20k and fever, or if Plt < 10k without fever --> plt trend 90-->92k-->82-->92k-->85k-->104k-->122k-->126k-->109k-->112k # Coagulopathy due to liver cirrhosis secondary to Etoh --> GI is following, appreciate recs --> Abdominal ultrasound reviewed --> Supportive care --> lactulose prophylactic --> vit K on prn basis 07/15 # Substance abuse --> psych eval # Hypokalemia --> Replace, continue to monitor # Hypocalcemia --> replete Ca++ prn # Cirrhosis of the liver --> appears chronic # Dvt ppx with scds --> may consider lovenox The timing of this note does not necessarily reflect the time of the patient was seen. GREATLY APPRECIATE CONSULTATION. Subjective Constitutional: Denies: no symptoms, chills, fever, malaise, weakness, other HEENT: Denies: no symptoms, eye pain, blurred vision, tearing, double vision, ear pain, ear discharge, nose pain, nose congestion, throat pain, throat swelling, mouth pain, mouth swelling, other Cardiovascular: Denies: no symptoms, chest pain, edema, irregular heart rate, lightheadedness, palpitations, syncope, other Respiratory: Denies: no symptoms, cough, shortness of breath, SOB with excertion, SOB at rest, sputum, wheezing, other Gastrointestinal/Abdominal: Denies: no symptoms, abdomen distended, abdominal pain, black stools, tarry stools, blood in stool, constipated, diarrhea, difficulty swallowing, nausea, poor appetite, poor fluid intake, rectal bleeding , vomiting, other Genitourinary: Denies: no symptoms, burning, discharge, frequency, flank pain, hematuria, incontinence, pain, urgency, other Neurologic/Psychiatric: Denies: no symptoms, anxiety, depressed, emotional problems, headache, numbness, paresthesia, pre-existing deficit, seizure, tingling, tremors, weakness, other Allergies: Coded Allergies: No Known Allergies (Unverified , 07/03/19) Subjective 07/05: no fevers, chills or night sweats noted, on iv iron has been started, on benzo 07/07: extremely agitated overnight, climbin out of bed, on cristina taper, h/h low 07/08: remains on abx, no f/c, no bleeding is noted, no changes 07/09: paracentesis negative for malignant cells, cxr and labs reviewed 07/10: no acute distress, still drowsy, has been attempting to get out of bed 07/11: transferred [facility] [place], stool ob negative, h/h stable 07/12: imaging reviewed, on abx, us paracentesis, no distress 07/13: remains on librium, plt 85, hgb 8.5, no f/c, no night sweats 07/15: no bleeding, pt/ptt elevated, given vit K, no f/c, no chills noted 07/16: for repeat paracentesis, no f/c, no bleeding 07/17: us paracentesis, vs stable, no f/c, denies any pain, on abx, med reviewed 07/18: remains on ancef for now 14d as per id, no bleeding reported, no f/c 07/19: on abx, no f/c, vs stable, no sob, no acute distress, imaging reviewed 07/20: electrolytes repleted, no f/c, confused still 07/22: no events, no bleeding, labs have been reviewed, remains confused 07/23: no f/c, confused, on restraints, denies pain or comfort, on cephalexin 07/24: remains somewhat confused, on restraints, no bleeding, chills 07/25: no f/c, on restraints, seizure precaution, on cephalexin, no distress 07/26: vs stable, no f/c, agitated, refusing care/tx, hgb 7.6 repeat cbc tomorrow am 07/29: no events, no bleeding, no f/c, labs noted++ wrist restraints 07/30: getting out of restraints, no f/c, no bleeding noted 07/31: no events to report, no f/c, in restraints Objective Objective Current Medications Medications (Trade) Dose Ordered Sig/Tanja Route PRN Reason Start Time Stop Time Status Last Admin Dose Admin Cephalexin (Keflex) 500 mg Q6HR ORAL 07/21/19 18:00 08/04/19 19:00 07/31/19 06:08 Chlordiazepoxide (Librium) 50 mg TID ORAL 07/30/19 18:00 08/06/19 17:59 07/31/19 08:49 Folic Acid (Folate) 1 mg DAILY ORAL 07/31/19 09:00 08/30/19 08:59 07/31/19 08:49 Lactulose (Cephulac) 20 gm THREE TIMES A DAY ORAL 07/20/19 09:00 08/04/19 12:59 07/31/19 08:49 Magnesium Oxide (Mag-Ox 400mg) 400 mg THREE TIMES A DAY ORAL 07/26/19 13:00 08/25/19 12:59 07/31/19 08:49 Pantoprazole (Protonix) 40 mg EVERY 12 HOURS ORAL 07/26/19 21:00 08/25/19 20:59 07/31/19 08:49 Potassium Chloride (K-Dur) 40 meq DAILY ORAL 07/20/19 09:00 08/15/19 08:59 07/31/19 08:49 Thiamine HCl (Vitamin B1) 100 mg DAILY ORAL 07/31/19 09:00 08/30/19 08:59 07/31/19 08:49 Last 24 Hour Vital Signs Date Time Temp Pulse Resp B/P (MAP) Pulse Ox O2 Delivery O2 Flow Rate FiO2 07/31/19 04:00 98.1 77 20 151/82 (105) 97 07/31/19 00:04 97.9 93 20 109/78 (88) 100 07/30/19 21:00 Room Air 07/30/19 16:00 98.5 99 18 140/80 (100) 100 07/30/19 12:00 98.7 109 19 152/87 (108) 100 07/30/19 09:00 Room Air 07/30/19 08:00 98.2 93 18 112/92 (99) 99 07/30/19 04:00 97.9 100 21 139/99 (112) 99 07/30/19 00:00 97.8 103 21 126/87 (100) 100 07/29/19 21:00 Room Air 07/29/19 20:00 98.1 108 22 130/81 (97) 96 07/29/19 16:00 98.6 67 18 127/51 (76) 96 07/29/19 12:00 97.4 82 18 130/79 (96) 98 Intake and Output 07/30/19 07/31/19 19:00 07:00 Intake Total 900 ml Balance 900 ml Intake Oral 900 ml # Voids 3 3 Labs Test 07/28/19 12:57 07/29/19 05:25 07/30/19 05:23 07/31/19 05:35 Ammonia 28 umol/L (11-32) White Blood Count 7.0 K/UL (4.8-10.8) 6.0 K/UL (4.8-10.8) 6.3 K/UL (4.8-10.8) Red Blood Count 2.64 M/UL (4.70-6.10) 2.53 M/UL (4.70-6.10) 2.71 M/UL (4.70-6.10) Hemoglobin 7.5 G/DL (14.2-18.0) 7.4 G/DL (14.2-18.0) 7.7 G/DL (14.2-18.0) Hematocrit 24.4 % (42.0-52.0) 23.9 % (42.0-52.0) 25.4 % (42.0-52.0) Mean Corpuscular Volume 92 FL (80-99) 94 FL (80-99) 94 FL (80-99) Mean Corpuscular Hemoglobin 28.3 PG (27.0-31.0) 29.1 PG (27.0-31.0) 28.4 PG (27.0-31.0) Mean Corpuscular Hemoglobin Concent 30.6 G/DL (32.0-36.0) 30.8 G/DL (32.0-36.0) 30.3 G/DL (32.0-36.0) Red Cell Distribution Width 20.8 % (11.6-14.8) 19.4 % (11.6-14.8) 20.3 % (11.6-14.8) Platelet Count 109 K/UL (150-450) 112 K/UL (150-450) 115 K/UL (150-450) Mean Platelet Volume 5.7 FL (6.5-10.1) 6.3 FL (6.5-10.1) 5.4 FL (6.5-10.1) Neutrophils (%) (Auto) % (45.0-75.0) % (45.0-75.0) % (45.0-75.0) Lymphocytes (%) (Auto) % (20.0-45.0) % (20.0-45.0) % (20.0-45.0) Monocytes (%) (Auto) % (1.0-10.0) % (1.0-10.0) % (1.0-10.0) Eosinophils (%) (Auto) % (0.0-3.0) % (0.0-3.0) % (0.0-3.0) Basophils (%) (Auto) % (0.0-2.0) % (0.0-2.0) % (0.0-2.0) Differential Total Cells Counted 100 100 Neutrophils % (Manual) 67 % (45-75) 78 % (45-75) Lymphocytes % (Manual) 19 % (20-45) 11 % (20-45) Monocytes % (Manual) 12 % (1-10) 6 % (1-10) Eosinophils % (Manual) 1 % (0-3) 4 % (0-3) Basophils % (Manual) 1 % (0-2) 0 % (0-2) Band Neutrophils 0 % (0-8) 1 % (0-8) Platelet Estimate Decreased Decreased Platelet Morphology Normal Normal Anisocytosis 2+ 2+ Sodium Level 145 MMOL/L (136-145) 144 MMOL/L (136-145) 144 MMOL/L (136-145) Potassium Level 4.0 MMOL/L (3.5-5.1) 3.7 MMOL/L (3.5-5.1) 3.7 MMOL/L (3.5-5.1) Chloride Level 114 MMOL/L (98-107) 112 MMOL/L (98-107) 112 MMOL/L (98-107) Carbon Dioxide Level 25 MMOL/L (21-32) 26 MMOL/L (21-32) 26 MMOL/L (21-32) Blood Urea Nitrogen 6 mg/dL (7-18) 5 mg/dL (7-18) 5 mg/dL (7-18) Creatinine 1.1 MG/DL (0.55-1.30) 1.1 MG/DL (0.55-1.30) 0.9 MG/DL (0.55-1.30) Estimat Glomerular Filtration Rate > 60 mL/min (>60) > 60 mL/min (>60) > 60 mL/min (>60) Glucose Level 87 MG/DL (74-106) 85 MG/DL (74-106) 76 MG/DL (74-106) Calcium Level 8.1 MG/DL (8.5-10.1) 8.2 MG/DL (8.5-10.1) 8.1 MG/DL (8.5-10.1) Anion Gap 6 mmol/L (5-15) 6 mmol/L (5-15) Hypochromasia 3+ Height (Feet): 5 Height (Inches): 8.00 Weight (Pounds): 152 Objective Physical Exam: Vitals: reviewed General Appearance: NAD HEENT: normocephalic, atraumatic Neck: non-tender, normal alignment Respiratory/Chest: normal breath sounds bilaterally Cardiovascular/Chest: normal peripheral pulses, normal rate Abdomen: normal bowel sounds, soft, nontender +++ ascites Avery Guo MD Jul 31, 2019 09:15
--- NOTE | 2019-07-31 09:17 | General Progress Note ---
Assessment/Plan Status: stable, unchanged Assessment/Plan: 48-year-old male with past medical history of ETOH abuse presented found down. Overall improving s/p paracentesis 07/16/19 #Encephalopathy likely multifactorial including hepatic encephalopathy ( elevated ammonia), as well as sepsis with bacteremia due to MSSA. #Sepsis secondary to bacteremia due to MSSA -s/p vancomycin and Zosyn (07/06), now cefazolin per ID recs. Keflex for 2 weeks started 07/21/19 -Repeat blood cultures are negative -Infectious disease consult, appreciate recs -Palliative care consult appreciated. Medical application in process. [facility] informed and accepted #Hypernatremia- resolved encourage PO intake # Lice - primerin treatment - Ordered to clip hair as persistent lice noted despite 2 shampoo treatment #Liver cirrhosis secondary to EtOH # ETOH withdrawal. Discontinue Libirum - DF 31 -MELD 15 on admission -Abdominal ultrasound reviewed -Status post paracentesis 07/05/2019 with removal of 8 L. -Albumin for BP support as needed -Supportive care - lactulose OH - Repeat paracentesis 07/16. Recheck INR, VIT K and ffp as needed -Add Furosemide 20mg and aldactone 50mg daily. Check chemistry prn #Anemia, likely might multifactorial including acute blood loss anemia, anemia of chronic disease -Hematology consult, appreciate recs -Iron panel: Reviewed -Low folate: Replace -B12 within normal limits above 800 -GI consult, appreciate recs. HOLD OFF NGT for now due to risk with possible esophageal varices. PENDING EGD per GI decision. Patient is gradually waking up and eating is still a problem. MONITOR closely as he is now 9 days into the Hospital stay. #Thrombocytopenia -due to cirrhosis- stable #Substance abuse -Nodular liver in ultrasound suggestive of cirrhosis -Check hepatitis and HIV: hiv neg, hepatitis panel negative -Social work Consult - Psyche consult, appreciate recs #Hypokalemia Replace as needed, will replace today 40meq by mouth # Hypomagnesemia Replace today # Hypocalcemia - replace as needed #Dysphagia -Etiology due to agitation, likely due underlying hepatic encephalopathy vs side effect of Ativan #full code Per PT, out of chair to bed with sitter # Disposition SW and CM follow up needed. Homeless. hospice. palliative care consult. [facility] hosp[facility] The time of my note may not reflect the time of my patient encounter. I spent 40 minutes on this encounter, greater than 50 percent in counseling and care coordination Subjective Date patient seen: Jul 31, 2019 ROS Limited/Unobtainable: Yes Allergies: Coded Allergies: No Known Allergies (Unverified , 07/03/19) Subjective seen and examined sitting in chair .awake. calm. mental status waxing and waning but better. on oral antibiotics with keflex for mssa bacteremia. ROS unable to obtain due to mental status Objective Last 24 Hour Vital Signs Date Time Temp Pulse Resp B/P (MAP) Pulse Ox O2 Delivery O2 Flow Rate FiO2 07/31/19 04:00 98.1 77 20 151/82 (105) 97 07/31/19 00:04 97.9 93 20 109/78 (88) 100 07/30/19 21:00 Room Air 07/30/19 16:00 98.5 99 18 140/80 (100) 100 07/30/19 12:00 98.7 109 19 152/87 (108) 100 Intake and Output 07/30/19 07/31/19 19:00 07:00 Intake Total 900 ml Balance 900 ml Intake Oral 900 ml # Voids 3 3 Laboratory Tests 07/31/19 05:35: White Blood Count 6.3, Red Blood Count 2.71L, Hemoglobin 7.7L, Hematocrit 25.4L , Mean Corpuscular Volume 94, Mean Corpuscular Hemoglobin 28.4, Mean Corpuscular Hemoglobin Concent 30.3L, Red Cell Distribution Width 20.3H, Platelet Count 115L, Mean Platelet Volume 5.4L, Neutrophils (%) (Auto) , Lymphocytes (%) (Auto) , Monocytes (%) (Auto) , Eosinophils (%) (Auto) , Basophils (%) (Auto) , Differential Total Cells Counted 100, Neutrophils % ( Manual) 78H, Lymphocytes % (Manual) 11L, Monocytes % (Manual) 6, Eosinophils % ( Manual) 4H, Basophils % (Manual) 0, Band Neutrophils 1, Platelet Estimate DecreasedL, Platelet Morphology Normal, Hypochromasia 3+, Anisocytosis 2+, Sodium Level 144, Potassium Level 3.7, Chloride Level 112H, Carbon Dioxide Level 26, Anion Gap 6, Blood Urea Nitrogen 5L, Creatinine 0.9, Estimat Glomerular Filtration Rate > 60, Glucose Level 76, Calcium Level 8.1L Height (Feet): 5 Height (Inches): 8.00 Weight (Pounds): 152 Objective General Appearance: moderate agitation EENT: PERRL/EOMI, normal ENT inspection Cardiovascular: normal rate Respiratory/Chest: lungs clear Abdomen: distended, hepatomegaly Edema: trace edema Neurologic: nurse clinical II-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 Jul 31, 2019 09:17
--- NOTE | 2019-07-31 11:00 | NUR ---
P.T Note: Pt unable to participate in therapy due to lethargy. Ativan has taken effect per RN.
[2019-07-31 12:00] VITALS: BP 118/82
--- NOTE | 2019-07-31 12:51 | Pulmonology Progress Note ---
Assessment/Plan Problems: (1) End stage liver disease (2) Coagulopathy (3) Hepatic encephalopathy Assessment/Plan no new complains symptomatic treatment Medical application in process. [facility] informed [facility]. awaiting placement. d/c planning in progress Subjective ROS Limited/Unobtainable: No Constitutional: Reports: no symptoms HEENT: Repors: no symptoms Respiratory: Reports: other Allergies: Coded Allergies: No Known Allergies (Unverified , 07/03/19) Objective Last 24 Hour Vital Signs Date Time Temp Pulse Resp B/P (MAP) Pulse Ox O2 Delivery O2 Flow Rate FiO2 07/31/19 08:30 Room Air 07/31/19 08:00 97.9 105 20 125/79 (94) 98 07/31/19 04:00 98.1 77 20 151/82 (105) 97 07/31/19 00:04 97.9 93 20 109/78 (88) 100 07/30/19 21:00 Room Air 07/30/19 16:00 98.5 99 18 140/80 (100) 100 Intake and Output 07/30/19 07/31/19 19:00 07:00 Intake Total 900 ml Balance 900 ml Intake Oral 900 ml # Voids 3 3 General Appearance: WD/WN HEENT: normocephalic, atraumatic Respiratory/Chest: chest wall non-tender, lungs clear Cardiovascular: normal peripheral pulses, regular rhythm, no JVD Abdomen: soft, non tender, no mass Genitourinary: normal external genitalia Skin: no rash, no lesions Laboratory Tests 07/31/19 05:35: White Blood Count 6.3, Red Blood Count 2.71L, Hemoglobin 7.7L, Hematocrit 25.4L , Mean Corpuscular Volume 94, Mean Corpuscular Hemoglobin 28.4, Mean Corpuscular Hemoglobin Concent 30.3L, Red Cell Distribution Width 20.3H, Platelet Count 115L, Mean Platelet Volume 5.4L, Neutrophils (%) (Auto) , Lymphocytes (%) (Auto) , Monocytes (%) (Auto) , Eosinophils (%) (Auto) , Basophils (%) (Auto) , Differential Total Cells Counted 100, Neutrophils % ( Manual) 78H, Lymphocytes % (Manual) 11L, Monocytes % (Manual) 6, Eosinophils % ( Manual) 4H, Basophils % (Manual) 0, Band Neutrophils 1, Platelet Estimate DecreasedL, Platelet Morphology Normal, Hypochromasia 3+, Anisocytosis 2+, Sodium Level 144, Potassium Level 3.7, Chloride Level 112H, Carbon Dioxide Level 26, Anion Gap 6, Blood Urea Nitrogen 5L, Creatinine 0.9, Estimat Glomerular Filtration Rate > 60, Glucose Level 76, Calcium Level 8.1L Current Medications Medications (Trade) Dose Ordered Sig/Tanja Route PRN Reason Start Time Stop Time Status Last Admin Dose Admin Cephalexin (Keflex) 500 mg Q6HR ORAL 07/21/19 18:00 08/04/19 19:00 07/31/19 06:08 Chlordiazepoxide (Librium) 50 mg TID ORAL 07/30/19 18:00 08/06/19 17:59 07/31/19 08:49 Folic Acid (Folate) 1 mg DAILY ORAL 07/31/19 09:00 08/30/19 08:59 07/31/19 08:49 Furosemide (Lasix) 20 mg DAILY ORAL 08/01/19 09:00 08/31/19 08:59 Lactulose (Cephulac) 20 gm THREE TIMES A DAY ORAL 07/20/19 09:00 08/04/19 12:59 07/31/19 08:49 Magnesium Oxide (Mag-Ox 400mg) 400 mg THREE TIMES A DAY ORAL 07/26/19 13:00 08/25/19 12:59 07/31/19 08:49 Pantoprazole (Protonix) 40 mg EVERY 12 HOURS ORAL 07/26/19 21:00 08/25/19 20:59 07/31/19 08:49 Potassium Chloride (K-Dur) 40 meq DAILY ORAL 07/20/19 09:00 08/15/19 08:59 07/31/19 08:49 Spironolactone (Aldactone) 50 mg DAILY ORAL 08/01/19 09:00 08/31/19 08:59 Thiamine HCl (Vitamin B1) 100 mg DAILY ORAL 07/31/19 09:00 08/30/19 08:59 07/31/19 08:49 Ronnell Card MD Jul 31, 2019 12:51
--- NOTE | 2019-07-31 13:16 | NUR ---
ST NOTES: WEEKLY SWALLOW/SPEECH THERAPY SUMMARY: SEEN PRIMARILY FOR SWALLOWING SKILLS AND DYSPHAGIA. GOALS MET FOR INTAKE ON PUREED AND NECTAR THICK LIQUID DIET 100%. GOALS ALSO MET STAFF EDUCATED IN ASPIRATION PRECAUTIONS. PATIENT NOT ALERT AND UNABLE TO EAT LUNCH. EDUCATED RN (JONH) ABOUT THE UPGRADED DIET TO MECH SOFT FINELY CHOPPED AND THIN LIQUIDS AND NEED FOR ASPIRATION PRECAUTIONS. NOT ABLE TO COMPLETE MODIFIED BARIUM SWALLOW STUDY TODAY. PLAN: CONTINUE WITH GOALS NOTED IN SWALLOW EVAL. COMPLETE MOD BARIUM SWALLOW STUDY WHEN ALERT OR OP IF DC TO FURTHER ASSESS SWALLOW, DETERMINE SILENT ASP RISK, AND ATTEMPT TRIAL TX TECHNIQUES. COMPLETE COGNITIVE-LINGUISTIC EVAL/TX WHEN ALERT
[2019-07-31 16:00] VITALS: BP 108/72
--- NOTE | 2019-07-31 16:07 | NUR ---
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 98.8 HR 105 RR 20 B/P 150/82 RA 99% H/H 7.7/25.4 IS: LASIX PO ALDACTONE PO LIBRIUM PO PROTONIX PO LACTULOSE PO MED/SURG STATUS
--- NOTE | 2019-07-31 19:46 | NUR ---
HAND-OFF: Report given to JOSEFINA Corrales.
--- NOTE | 2019-07-31 19:52 | NUR ---
NURSE NOTES: received patient awake,Guyanese speaking,confused,uncooperative,on bilateral soft wrist restraints.
[2019-07-31 20:00] VITALS: BP 108/72
[2019-08-01 00:14] VITALS: BP 139/84
[2019-08-01 04:00] VITALS: BP 143/93
--- NOTE | 2019-08-01 05:15 | Consultation ---
DATE OF CONSULTATION: 08/01/2019 CONSULTING PHYSICIAN: Samina Cruz M.D. HISTORY OF PRESENT ILLNESS: This is a 48-year-old male who has been admitted to the hospital due to alcohol withdrawal. The patient has been severely agitated, walking around the unit and responding to internal stimuli. The patient has been having DTs. He is unable to provide any history as he is confused. PAST PSYCHIATRIC HISTORY: Unable to provide any history. PAST MEDICAL HISTORY: Significant for anemia, alcoholic cirrhosis, and end-stage renal disease. ALLERGIES: No known drug allergies. SUBSTANCE ABUSE HISTORY: Severe alcohol dependence. MENTAL STATUS EXAMINATION: The patient is alert and confused. Mood is agitated. Affect is flat. Thought process is disorganized. Thought content, no suicidal or homicidal ideation. Cognition is impaired. ASSESSMENT: [place] I Acute toxic encephalopathy. Alcohol withdrawal. Delirium tremens. Alcohol dependence. [place] II Deferred. [place] III . [place] IV Moderate. [place] V 10. PLAN: 1. We will start the patient on Librium t.i.d. 2. Continue the Ativan p.r.n. 3. Continue the self-restraints. Samina Cruz M.D. DR: SOHAN JOB#: [id number] CC:
[2019-08-01] MEDS: Cephalexin 500mg cap ORAL SCH ×3 (05:34→17:09)
[2019-08-01 07:01] LABS: HEMATOCRIT 24.2 % (42.0-52.0); HEMOGLOBIN 7.4 G/DL (14.2-18.0); MEAN CORPUSCULAR VOLUME 93 FL (80-99); PLATELET COUNT 123 K/UL (150-450); RED BLOOD COUNT 2.61 M/UL (4.70-6.10); RED CELL DISTRIBUTION WIDTH 20.5 % (11.6-14.8); WHITE BLOOD COUNT 5.5 K/UL (4.8-10.8)
[2019-08-01 07:08] LABS: ANION GAP 5 mmol/L (5-15); BLOOD UREA NITROGEN 6 mg/dL (7-18); CALCIUM 8.1 MG/DL (8.5-10.1); CARBON DIOXIDE 26 MMOL/L (21-32); CHLORIDE 112 MMOL/L (98-107); CREATININE 0.9 MG/DL (0.55-1.30); POTASSIUM 3.7 MMOL/L (3.5-5.1); SODIUM 143 MMOL/L (136-145)
--- NOTE | 2019-08-01 07:27 | NUR ---
HAND-OFF: Report given to Shanae Larson RN.
--- NOTE | 2019-08-01 07:47 | NUR ---
NURSE NOTES: received patient in bed, patient awake,confused , [place] speaking,no sign of distress,no IV access noted, per NOC shift MD aware ok no IV access, on bilateral soft wrist restraints on on fall precaution kept clean dry and comfortable in bed nayan hensley
[2019-08-01 08:00] VITALS: BP 121/82
[2019-08-01] MEDS: Lactulose 20gm/30ml UDC ORAL SCH ×3 (08:26→17:09)
[2019-08-01] MEDS: Magnesium Oxide 400mg tab ORAL SCH ×3 (08:26→17:09)
[2019-08-01] MEDS: chlordiazePOXIDE 25mg Cap ORAL SCH ×2 (08:27→12:10)
[2019-08-01] MEDS: Spironolactone 50mg tab ORAL SCH (08:28)
[2019-08-01] MEDS: Thiamine 100mg tab ORAL SCH (08:28)
--- NOTE | 2019-08-01 09:40 | General Progress Note ---
Assessment/Plan Status: stable, unchanged Assessment/Plan: 48-year-old male with past medical history of ETOH abuse presented found down. Overall improving s/p paracentesis 07/16/19 #Encephalopathy likely multifactorial including hepatic encephalopathy ( elevated ammonia), as well as sepsis with bacteremia due to MSSA. #Sepsis secondary to bacteremia due to MSSA -s/p vancomycin and Zosyn (07/06), now cefazolin per ID recs. Keflex for 2 weeks started 07/21/19, (to be finished on the 04 of August) -Repeat blood cultures are negative -Infectious disease consult, appreciate recs -Palliative care consult appreciated. Medical application in process. [facility] informed [facility] accepted #Hypernatremia- resolved encourage PO intake # Lice - primerin treatment - Ordered to clip hair as persistent lice noted despite 2 shampoo treatment #Liver cirrhosis secondary to EtOH # ETOH withdrawal. Discontinue Libirum - DF 31 -MELD 15 on admission -Abdominal ultrasound reviewed -Status post paracentesis 07/05/2019 with removal of 8 L. -Albumin for BP support as needed -Supportive care - lactulose DC - Repeat paracentesis 07/16. Recheck INR, VIT K and ffp as needed -Add Furosemide 20mg and aldactone 50mg daily. Check chemistry prn #Anemia, likely might multifactorial including acute blood loss anemia, anemia of chronic disease -Hematology consult, appreciate recs -Iron panel: Reviewed -Low folate: Replace -B12 within normal limits above 800 -GI consult, appreciate recs. HOLD OFF NGT for now due to risk with possible esophageal varices. PENDING EGD per GI decision. Patient is gradually waking up and eating is still a problem. MONITOR closely as he is now 9 days into the Hospital stay. #Thrombocytopenia -due to cirrhosis- stable #Substance abuse -Nodular liver in ultrasound suggestive of cirrhosis -Check hepatitis and HIV: hiv neg, hepatitis panel negative -Social work Consult - Psyche consult, appreciate recs #Hypokalemia Replace as needed, will replace today 40meq by mouth # Hypomagnesemia Replace today # Hypocalcemia - replace as needed #Dysphagia -Etiology due to agitation, likely due underlying hepatic encephalopathy vs side effect of Ativan #full code Per PT, out of chair to bed with sitter # Disposition SW and CM follow up needed. Homeless. hospice. palliative care consult. [facility] The time of my note may not reflect the time of my patient encounter. I spent 40 minutes on this encounter, greater than 50 percent in counseling and care coordination Subjective Date patient seen: Aug 01, 2019 ROS Limited/Unobtainable: Yes Allergies: Coded Allergies: No Known Allergies (Unverified , 07/03/19) Subjective No acute events remains disoriented and encephalopathic this is not acute etoh withdrwal or DTs since he has been in the hospital for a prolonged period of 29 days Objective Last 24 Hour Vital Signs Date Time Temp Pulse Resp B/P (MAP) Pulse Ox O2 Delivery O2 Flow Rate FiO2 08/01/19 08:10 Room Air 08/01/19 08:00 97.6 76 18 121/82 (95) 97 08/01/19 04:00 97.7 86 18 143/93 (110) 98 08/01/19 00:14 97.8 99 20 139/84 (102) 98 07/31/19 21:00 Room Air 07/31/19 20:00 98.0 100 17 108/72 (84) 99 07/31/19 16:00 98.0 100 17 108/72 (84) 99 07/31/19 12:00 98.1 70 18 118/82 (94) 97 Intake and Output 07/31/19 08/01/19 19:00 07:00 Intake Total 320 ml Balance 320 ml Intake Oral 320 ml # Voids 3 5 # Bowel Movements 1 1 Laboratory Tests 08/01/19 06:15: White Blood Count 5.5, Red Blood Count 2.61L, Hemoglobin 7.4L, Hematocrit 24.2L , Mean Corpuscular Volume 93, Mean Corpuscular Hemoglobin 28.3, Mean Corpuscular Hemoglobin Concent 30.5L, Red Cell Distribution Width 20.5H, Platelet Count 123L, Mean Platelet Volume 6.3L, Neutrophils (%) (Auto) , Lymphocytes (%) (Auto) , Monocytes (%) (Auto) , Eosinophils (%) (Auto) , Basophils (%) (Auto) , Differential Total Cells Counted 100, Neutrophils % ( Manual) 54, Lymphocytes % (Manual) 24, Monocytes % (Manual) 17H, Eosinophils % ( Manual) 5H, Basophils % (Manual) 0, Band Neutrophils 0, Platelet Estimate DecreasedL, Platelet Morphology Normal, Hypochromasia 1+, Anisocytosis 2+, Sodium Level 143, Potassium Level 3.7, Chloride Level 112H, Carbon Dioxide Level 26, Anion Gap 5, Blood Urea Nitrogen 6L, Creatinine 0.9, Estimat Glomerular Filtration Rate > 60, Glucose Level 91, Calcium Level 8.1L Height (Feet): 5 Height (Inches): 8.00 Weight (Pounds): 152 Objective General Appearance: moderate agitation EENT: PERRL/EOMI, normal ENT inspection Cardiovascular: normal rate Respiratory/Chest: lungs clear Abdomen: distended, hepatomegaly Edema: trace edema Neurologic: care program resident II-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 Aug 01, 2019 09:40
[2019-08-01 12:26] VITALS: BP 115/76
--- NOTE | 2019-08-01 13:47 | NUR ---
RD ASSESSMENT & RECOMMENDATIONS SEE CARE ACTIVITY FOR COMPLETE ASSESSMENT DAILY ESTIMATED NEEDS: Needs based on Cirrhosis/ 60kg abw 25-30 kcals/kg 6894-7653 total kcals 1-1.5 g protein/kg 60-90 g total protein 25-30 mL/kg 8897-2296 total fluid mLs NUTRITION DIAGNOSIS: * Altered nutrition related lab values R/T cirrhosis, h/o ETOH abuse, clinical condition as evidenced by elev AST and T bili (1.4), elev NH3 (52 -> now wnl), low K (3.0-> wnl), low mag (1.5), low folate (5.1) * Swallowing difficulty R/T dysphagia, confusion, encephalopathy as evidenced by pt on pureed moist texture w/ NTL, w/ poor and variable PO intake. CURRENT DIET:Cardiac, pureed moist w/ NTL + ensure TID PO DIET RECOMMENDATIONS: Liberalize diet to LOW NA/ texture per COUNSELING DEPARTMENT CHAIR ADDITIONAL RECOMMENDATIONS: * Calibrated bedscale wt for accurate CBW * COUNSELING DEPARTMENT CHAIR re-eval for possible texture upgrade (now on ms finely chopped) * Maintain Ensure Enlive TID w/ meals * Add MVI x 1 * Monitor lytes daily, wnl * Rec appetite stimulant
[2019-08-01 16:00] VITALS: BP 108/58
--- NOTE | 2019-08-01 18:55 | NUR ---
HAND-OFF: Report given to JOSEFINA Corrales Resting comfortably in bed, patient free from injury josefina hensley.
[2019-08-01 19:53] VITALS: BP 121/79
--- NOTE | 2019-08-01 20:08 | NUR ---
NURSE NOTES: received patient comfortably sleeping with bilateral soft wrist restraints on.
[2019-08-02] MEDS: Cephalexin 500mg cap ORAL SCH ×4 (00:13→17:14)
[2019-08-02 00:16] VITALS: BP 124/78
[2019-08-02] MEDS: LORazepam 1mg tab ORAL PRN ×3 (01:12→17:14)
[2019-08-02 04:00] VITALS: BP 132/64
[2019-08-02 06:06] LABS: ANION GAP 5 mmol/L (5-15); BLOOD UREA NITROGEN 7 mg/dL (7-18); CALCIUM 8.1 MG/DL (8.5-10.1); CARBON DIOXIDE 27 MMOL/L (21-32); CHLORIDE 109 MMOL/L (98-107); CREATININE 1.1 MG/DL (0.55-1.30); POTASSIUM 4.1 MMOL/L (3.5-5.1); SODIUM 141 MMOL/L (136-145)
--- NOTE | 2019-08-02 07:20 | NUR ---
NURSE NOTES: Patient received resting in bed, breathing unlabored on room air. Axox1. No signs of SOB or pain observed. Patient has bilateral wrist restraints. Bed is locked. Call light placed within reach. Will continue to monitor.
--- NOTE | 2019-08-02 07:24 | NUR ---
HAND-OFF: Report given to Dixie Woods RN.
[2019-08-02 08:00] VITALS: BP 99/65
[2019-08-02] MEDS: Thiamine 100mg tab ORAL SCH (08:27)
[2019-08-02] MEDS: Spironolactone 50mg tab ORAL SCH (08:27)
[2019-08-02] MEDS: Lactulose 20gm/30ml UDC ORAL SCH ×3 (08:27→17:14)
[2019-08-02] MEDS: Magnesium Oxide 400mg tab ORAL SCH ×3 (08:27→17:14)
--- NOTE | 2019-08-02 08:44 | NUR ---
NURSE NOTES: PT MANAGED TO FREE FROM RESTRAINTS AND SLID FROM FOOT OF THE BED TO THE FLOOR LANDING ON HIS LEFT SIDE, HIP FIRST, PT DID NOT HIT HEAD, NO C/O PAIN,PT C/O HUNGER, NO CHANGE IN LOC, NO APPARENT INJURY, CALLED AND SPOKE W DR BOWIE NO NEW ORDERS PER MD, IF HE C/O PAIN THEN CAN ORDER XRAYS BUT MONITOR FOR NOW. Addendum: 08/02/19 at 0846 by RACHEL CHAUHAN RN SKIN IS INTACT
--- NOTE | 2019-08-02 11:04 | General Progress Note ---
Assessment/Plan Status: stable, unchanged Assessment/Plan: 48-year-old male with past medical history of ETOH abuse presented found down. Overall improving s/p paracentesis 07/16/19 #Encephalopathy likely multifactorial including hepatic encephalopathy ( elevated ammonia), as well as sepsis with bacteremia due to MSSA. #Sepsis secondary to bacteremia due to MSSA -s/p vancomycin and Zosyn (07/06), now cefazolin per ID recs. Keflex for 2 weeks started 07/21/19, (to be finished on the 04 of August) -Repeat blood cultures are negative -Infectious disease consult, appreciate recs -Palliative care consult appreciated. Medical application in process. [facility] informed and accepted #Hypernatremia- resolved encourage PO intake # Lice - primerin treatment - Ordered to clip hair as persistent lice noted despite 2 shampoo treatment #Liver cirrhosis secondary to EtOH # ETOH withdrawal. Discontinue Libirum - DF 31 -MELD 15 on admission -Abdominal ultrasound reviewed -Status post paracentesis 07/05/2019 with removal of 8 L. -Albumin for BP support as needed -Supportive care - lactulose MD - Repeat paracentesis 07/16. Recheck INR, VIT K and ffp as needed -Add Furosemide 20mg and aldactone 50mg daily. Check chemistry prn #Anemia, likely might multifactorial including acute blood loss anemia, anemia of chronic disease -Hematology consult, appreciate recs -Iron panel: Reviewed -Low folate: Replace -B12 within normal limits above 800 -GI consult, appreciate recs. HOLD OFF NGT for now due to risk with possible esophageal varices. PENDING EGD per GI decision. Patient is gradually waking up and eating is still a problem. MONITOR closely as he is now 9 days into the Hospital stay. #Thrombocytopenia -due to cirrhosis- stable #Substance abuse -Nodular liver in ultrasound suggestive of cirrhosis -Check hepatitis and HIV: hiv neg, hepatitis panel negative -Social work Consult - Psyche consult, appreciate recs #Hypokalemia Replace as needed, will replace today 40meq by mouth # Hypomagnesemia Replace today # Hypocalcemia - replace as needed #Dysphagia -Etiology due to agitation, likely due underlying hepatic encephalopathy vs side effect of Ativan #full code Per PT, out of chair to bed with sitter # Disposition SW and CM follow up needed. Homeless. hospice. palliative care consult. [facility] The time of my note may not reflect the time of my patient encounter. I spent 40 minutes on this encounter, greater than 50 percent in counseling and care coordination Subjective Date patient seen: Aug 02, 2019 ROS Limited/Unobtainable: Yes Allergies: Coded Allergies: No Known Allergies (Unverified , 07/03/19) Subjective No acute events mental status waxing and waning needs re-orientation and engagement he is redirectable Objective Last 24 Hour Vital Signs Date Time Temp Pulse Resp B/P (MAP) Pulse Ox O2 Delivery O2 Flow Rate FiO2 08/02/19 09:00 Room Air 08/02/19 08:00 98.8 106 21 99/65 (76) 97 08/02/19 04:00 97.9 85 18 132/64 (86) 99 08/02/19 00:16 98.7 101 18 124/78 (93) 98 08/01/19 20:15 Room Air 08/01/19 19:53 98.9 102 18 121/79 (93) 98 08/01/19 16:00 98.7 69 18 108/58 (75) 97 08/01/19 12:26 98.1 79 19 115/76 (89) 97 Intake and Output 08/01/19 08/02/19 19:00 07:00 Intake Total 800 ml Balance 800 ml Other 800 ml # Voids 2 # Bowel Movements 1 Laboratory Tests 08/02/19 05:20: Sodium Level 141, Potassium Level 4.1, Chloride Level 109H, Carbon Dioxide Level 27, Anion Gap 5, Blood Urea Nitrogen 7, Creatinine 1.1, Estimat Glomerular Filtration Rate > 60, Glucose Level 91, Calcium Level 8.1L Height (Feet): 5 Height (Inches): 8.00 Weight (Pounds): 152 Objective General Appearance: moderate agitation EENT: PERRL/EOMI, normal ENT inspection Cardiovascular: normal rate Respiratory/Chest: lungs clear Abdomen: distended, hepatomegaly Edema: trace edema Neurologic: dry cure worker II-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 Aug 02, 2019 11:04
--- NOTE | 2019-08-02 11:11 | Hematology/Onc Progress Note ---
Assessment/Plan Assessment/Plan ASSESSMENT AND RECS # Anemia of iron deficiency in addition to suppression from etoh abuse and cirrhosis of liver, ETOH --> Anemia workup has been ordered, rule out gi bleed --> aid noted --> No evidence of hemolysis is noted, peripheral smear has been reviewed. --> Hgb goal >7. Transfuse prn. --> Hgb trend: 4.2-->7.1-->7.6 --> 7.6-->7.7-->8.9-->9.1-->8.9-->8.5->8.8-->8.9- ->9.2-->7.6-->7.5->7.4 --> IRON IV 200mg ordered x 1dose (given) --> Medications have been reviewed --> stool ob negative # Thrombocytopenia - secondary to liver cirrhosis and etoh use --> Hep panel and HIV - both negative --> US abd to evaluate for cirrhosis and hsm ordered - Hepatic surface nodularity, suggestive of cirrhosis. Ascites --> Peripheral smear ordered to evaluate for blasts /schistocytes and none significant noted --> abx and other meds have been reviewed --> ok for ppx if plt >50k w/ either heparin or lovenox --> Transfuse if Plt < 20k and fever, or if Plt < 10k without fever --> plt trend 90-->92k-->82-->92k-->85k-->104k-->122k-->126k-->109k-->112k-->123 # Coagulopathy due to liver cirrhosis secondary to Etoh --> GI is following, appreciate recs --> Abdominal ultrasound reviewed --> Supportive care --> lactulose prophylactic --> vit K on prn basis 07/15 # Substance abuse --> psych eval # Hypokalemia --> Replace, continue to monitor # Hypocalcemia --> replete Ca++ prn # Cirrhosis of the liver --> appears chronic # Dvt ppx with scds --> may consider lovenox The timing of this note does not necessarily reflect the time of the patient was seen. GREATLY APPRECIATE CONSULTATION. Subjective Hematologic/Lymphatic: Reports: anemia Allergies: Coded Allergies: No Known Allergies (Unverified , 07/03/19) All Systems: reviewed and negative except above Subjective 07/05: no fevers, chills or night sweats noted, on iv iron has been started, on benzo 07/07: extremely agitated overnight, climbin out of bed, on cristina taper, h/h low 07/08: remains on abx, no f/c, no bleeding is noted, no changes 07/09: paracentesis negative for malignant cells, cxr and labs reviewed 07/10: no acute distress, still drowsy, has been attempting to get out of bed 07/11: transferred [facility], stool ob negative, h/h stable 07/12: imaging reviewed, on abx, us paracentesis, no distress 07/13: remains on librium, plt 85, hgb 8.5, no f/c, no night sweats 07/15: no bleeding, pt/ptt elevated, given vit K, no f/c, no chills noted 07/16: for repeat paracentesis, no f/c, no bleeding 07/17: us paracentesis, vs stable, no f/c, denies any pain, on abx, med reviewed 07/18: remains on ancef for now 14d as per id, no bleeding reported, no f/c 07/19: on abx, no f/c, vs stable, no sob, no acute distress, imaging reviewed 07/20: electrolytes repleted, no f/c, confused still 07/22: no events, no bleeding, labs have been reviewed, remains confused 07/23: no f/c, confused, on restraints, denies pain or comfort, on cephalexin 07/24: remains somewhat confused, on restraints, no bleeding, chills 07/25: no f/c, on restraints, seizure precaution, on cephalexin, no distress 07/26: vs stable, no f/c, agitated, refusing care/tx, hgb 7.6 repeat cbc tomorrow am 07/29: no events, no bleeding, no f/c, labs noted++ wrist restraints 07/30: getting out of restraints, no f/c, no bleeding noted 07/31: no events to report, no f/c, in restraints 08/02: remains disoriented, bilat wrist restraints, hgb 7.4, repeat cbc tomorrow Objective Objective Current Medications Medications (Trade) Dose Ordered Sig/Tanja Route PRN Reason Start Time Stop Time Status Last Admin Dose Admin Cephalexin (Keflex) 500 mg Q6HR ORAL 07/21/19 18:00 08/04/19 19:00 08/02/19 05:44 Folic Acid (Folate) 1 mg DAILY ORAL 07/31/19 09:00 08/30/19 08:59 08/02/19 08:27 Furosemide (Lasix) 20 mg DAILY ORAL 08/01/19 09:00 08/31/19 08:59 08/02/19 08:28 Lactulose (Cephulac) 20 gm THREE TIMES A DAY ORAL 07/20/19 09:00 08/04/19 12:59 08/02/19 08:27 Lorazepam (Ativan) 1 mg Q6H PRN ORAL For Anxiety 08/01/19 19:30 08/08/19 19:29 08/02/19 08:27 Magnesium Oxide (Mag-Ox 400mg) 400 mg THREE TIMES A DAY ORAL 07/26/19 13:00 08/25/19 12:59 08/02/19 08:27 Pantoprazole (Protonix) 40 mg EVERY 12 HOURS ORAL 07/26/19 21:00 08/25/19 20:59 08/02/19 08:27 Potassium Chloride (K-Dur) 40 meq DAILY ORAL 07/20/19 09:00 08/15/19 08:59 08/02/19 08:28 Spironolactone (Aldactone) 50 mg DAILY ORAL 08/01/19 09:00 08/31/19 08:59 08/02/19 08:27 Temazepam (Restoril) 15 mg HSPRN PRN ORAL Insomnia 08/01/19 19:30 08/08/19 19:29 Thiamine HCl (Vitamin B1) 100 mg DAILY ORAL 07/31/19 09:00 08/30/19 08:59 08/02/19 08:27 Last 24 Hour Vital Signs Date Time Temp Pulse Resp B/P (MAP) Pulse Ox O2 Delivery O2 Flow Rate FiO2 08/02/19 09:00 Room Air 08/02/19 08:00 98.8 106 21 99/65 (76) 97 08/02/19 04:00 97.9 85 18 132/64 (86) 99 08/02/19 00:16 98.7 101 18 124/78 (93) 98 08/01/19 20:15 Room Air 08/01/19 19:53 98.9 102 18 121/79 (93) 98 08/01/19 16:00 98.7 69 18 108/58 (75) 97 08/01/19 12:26 98.1 79 19 115/76 (89) 97 08/01/19 08:10 Room Air 08/01/19 08:00 97.6 76 18 121/82 (95) 97 08/01/19 04:00 97.7 86 18 143/93 (110) 98 08/01/19 00:14 97.8 99 20 139/84 (102) 98 07/31/19 21:00 Room Air 07/31/19 20:00 98.0 100 17 108/72 (84) 99 07/31/19 16:00 98.0 100 17 108/72 (84) 99 07/31/19 12:00 98.1 70 18 118/82 (94) 97 Intake and Output 08/01/19 08/02/19 19:00 07:00 Intake Total 800 ml Balance 800 ml Other 800 ml # Voids 2 # Bowel Movements 1 Labs Test 07/31/19 05:35 08/01/19 06:15 08/02/19 05:20 White Blood Count 6.3 K/UL (4.8-10.8) 5.5 K/UL (4.8-10.8) Red Blood Count 2.71 M/UL (4.70-6.10) 2.61 M/UL (4.70-6.10) Hemoglobin 7.7 G/DL (14.2-18.0) 7.4 G/DL (14.2-18.0) Hematocrit 25.4 % (42.0-52.0) 24.2 % (42.0-52.0) Mean Corpuscular Volume 94 FL (80-99) 93 FL (80-99) Mean Corpuscular Hemoglobin 28.4 PG (27.0-31.0) 28.3 PG (27.0-31.0) Mean Corpuscular Hemoglobin Concent 30.3 G/DL (32.0-36.0) 30.5 G/DL (32.0-36.0) Red Cell Distribution Width 20.3 % (11.6-14.8) 20.5 % (11.6-14.8) Platelet Count 115 K/UL (150-450) 123 K/UL (150-450) Mean Platelet Volume 5.4 FL (6.5-10.1) 6.3 FL (6.5-10.1) Neutrophils (%) (Auto) % (45.0-75.0) % (45.0-75.0) Lymphocytes (%) (Auto) % (20.0-45.0) % (20.0-45.0) Monocytes (%) (Auto) % (1.0-10.0) % (1.0-10.0) Eosinophils (%) (Auto) % (0.0-3.0) % (0.0-3.0) Basophils (%) (Auto) % (0.0-2.0) % (0.0-2.0) Differential Total Cells Counted 100 100 Neutrophils % (Manual) 78 % (45-75) 54 % (45-75) Lymphocytes % (Manual) 11 % (20-45) 24 % (20-45) Monocytes % (Manual) 6 % (1-10) 17 % (1-10) Eosinophils % (Manual) 4 % (0-3) 5 % (0-3) Basophils % (Manual) 0 % (0-2) 0 % (0-2) Band Neutrophils 1 % (0-8) 0 % (0-8) Platelet Estimate Decreased Decreased Platelet Morphology Normal Normal Hypochromasia 3+ 1+ Anisocytosis 2+ 2+ Sodium Level 144 MMOL/L (136-145) 143 MMOL/L (136-145) 141 MMOL/L (136-145) Potassium Level 3.7 MMOL/L (3.5-5.1) 3.7 MMOL/L (3.5-5.1) 4.1 MMOL/L (3.5-5.1) Chloride Level 112 MMOL/L (98-107) 112 MMOL/L (98-107) 109 MMOL/L (98-107) Carbon Dioxide Level 26 MMOL/L (21-32) 26 MMOL/L (21-32) 27 MMOL/L (21-32) Anion Gap 6 mmol/L (5-15) 5 mmol/L (5-15) 5 mmol/L (5-15) Blood Urea Nitrogen 5 mg/dL (7-18) 6 mg/dL (7-18) 7 mg/dL (7-18) Creatinine 0.9 MG/DL (0.55-1.30) 0.9 MG/DL (0.55-1.30) 1.1 MG/DL (0.55-1.30) Estimat Glomerular Filtration Rate > 60 mL/min (>60) > 60 mL/min (>60) > 60 mL/min (>60) Glucose Level 76 MG/DL (74-106) 91 MG/DL (74-106) 91 MG/DL (74-106) Calcium Level 8.1 MG/DL (8.5-10.1) 8.1 MG/DL (8.5-10.1) 8.1 MG/DL (8.5-10.1) Height (Feet): 5 Height (Inches): 8.00 Weight (Pounds): 152 Objective Physical Exam: Vitals: reviewed General Appearance: NAD, disoriented, restraints+ HEENT: normocephalic, atraumatic Neck: non-tender, normal alignment Respiratory/Chest: normal breath sounds bilaterally Cardiovascular/Chest: normal peripheral pulses, normal rate Abdomen: normal bowel sounds, soft, nontender +++ ascites Avery Guo MD Aug 02, 2019 11:11
[2019-08-02 12:00] VITALS: BP 109/63
--- NOTE | 2019-08-02 13:38 | NUR ---
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 98.6 HR 89 RR 19 B/P 109/63 CA 8.1 IS: LASIX PO THIAMINE PO PROTONIX PO LACTULOSE PO MED/SURG STATUS
--- NOTE | 2019-08-02 15:12 | Pulmonology Progress Note ---
Assessment/Plan Problems: (1) End stage liver disease (2) Coagulopathy (3) Hepatic encephalopathy Assessment/Plan no new complains pt is on restrains symptomatic treatment Medical application in process. [facility] informed and accepted. awaiting placement. d/c planning in progress Subjective ROS Limited/Unobtainable: No Constitutional: Reports: no symptoms HEENT: Repors: no symptoms Allergies: Coded Allergies: No Known Allergies (Unverified , 07/03/19) Objective Last 24 Hour Vital Signs Date Time Temp Pulse Resp B/P (MAP) Pulse Ox O2 Delivery O2 Flow Rate FiO2 08/02/19 12:00 98.6 89 19 109/63 (78) 98 08/02/19 09:00 Room Air 08/02/19 08:00 98.8 106 21 99/65 (76) 97 08/02/19 04:00 97.9 85 18 132/64 (86) 99 08/02/19 00:16 98.7 101 18 124/78 (93) 98 08/01/19 20:15 Room Air 08/01/19 19:53 98.9 102 18 121/79 (93) 98 08/01/19 16:00 98.7 69 18 108/58 (75) 97 Intake and Output 08/01/19 08/02/19 19:00 07:00 Intake Total 800 ml Balance 800 ml Other 800 ml # Voids 2 # Bowel Movements 1 General Appearance: cachetic HEENT: normocephalic Respiratory/Chest: chest wall non-tender, lungs clear Cardiovascular: normal peripheral pulses, normal rate Abdomen: normal bowel sounds, soft, non tender Laboratory Tests 08/02/19 05:20: Sodium Level 141, Potassium Level 4.1, Chloride Level 109H, Carbon Dioxide Level 27, Anion Gap 5, Blood Urea Nitrogen 7, Creatinine 1.1, Estimat Glomerular Filtration Rate > 60, Glucose Level 91, Calcium Level 8.1L Current Medications Medications (Trade) Dose Ordered Sig/Tanja Route PRN Reason Start Time Stop Time Status Last Admin Dose Admin Cephalexin (Keflex) 500 mg Q6HR ORAL 07/21/19 18:00 08/04/19 19:00 08/02/19 12:09 Folic Acid (Folate) 1 mg DAILY ORAL 07/31/19 09:00 08/30/19 08:59 08/02/19 08:27 Furosemide (Lasix) 20 mg DAILY ORAL 08/01/19 09:00 08/31/19 08:59 08/02/19 08:28 Lactulose (Cephulac) 20 gm THREE TIMES A DAY ORAL 07/20/19 09:00 08/04/19 12:59 08/02/19 12:09 Lorazepam (Ativan) 1 mg Q6H PRN ORAL For Anxiety 08/01/19 19:30 08/08/19 19:29 08/02/19 08:27 Magnesium Oxide (Mag-Ox 400mg) 400 mg THREE TIMES A DAY ORAL 07/26/19 13:00 08/25/19 12:59 08/02/19 12:09 Pantoprazole (Protonix) 40 mg EVERY 12 HOURS ORAL 07/26/19 21:00 08/25/19 20:59 08/02/19 08:27 Potassium Chloride (K-Dur) 40 meq DAILY ORAL 07/20/19 09:00 08/15/19 08:59 08/02/19 08:28 Spironolactone (Aldactone) 50 mg DAILY ORAL 08/01/19 09:00 08/31/19 08:59 08/02/19 08:27 Temazepam (Restoril) 15 mg HSPRN PRN ORAL Insomnia 08/01/19 19:30 08/08/19 19:29 Thiamine HCl (Vitamin B1) 100 mg DAILY ORAL 07/31/19 09:00 08/30/19 08:59 08/02/19 08:27 Ronnell Card MD Aug 02, 2019 15:12
[2019-08-02 16:00] VITALS: BP 125/81
--- NOTE | 2019-08-02 19:20 | NUR ---
HAND-OFF: Report given to Leila RN.
[2019-08-02 20:00] VITALS: BP 139/88
--- NOTE | 2019-08-02 20:53 | NUR ---
NURSE NOTES: Received report from Leila, RN. Patient is in bed, awake and confused. Bilat soft wrist restraints still in progress. On room air with no signs of distress or SOB. Patient is attempting to climb out of bed. Bed locked and in lowest position. Bed alarm on. Will continue to monitor.
--- NOTE | 2019-08-02 22:30 | Progress Note ---
DATE: 08/02/2019 SUBJECTIVE: The patient is the same. Mental condition is unchanged. Since previous encounter, there is some improvement in terms of agitation; however, is still attempting to come out of bed. He fell this morning. MENTAL STATUS EXAMINATION: The patient is alert, confused, and disoriented. Mood is agitated. Affect is constricted, congruent with mood. Thought process is concrete. Thought content, no suicidal or homicidal ideation. Cognition is impaired. ASSESSMENT: Acute encephalopathy. PLAN: 1. Increase the Seroquel to 25 mg t.i.d. Add Remeron 15 mg at bedtime. 2. Continue the Ativan p.r.n. We will increase the Ativan to 2 mg q.4 hours. 3. Continue to follow and readjust the medications. Samina Cruz M.D. DR: JOAN JOB#: [id number] CC:
[2019-08-03] VITALS: BP 125/75
[2019-08-03] MEDS: Cephalexin 500mg cap ORAL SCH ×4 (00:30→18:00)
[2019-08-03 04:00] VITALS: BP 137/75
[2019-08-03 05:13] LABS: HEMATOCRIT 24.7 % (42.0-52.0); HEMOGLOBIN 7.6 G/DL (14.2-18.0); MEAN CORPUSCULAR VOLUME 92 FL (80-99); PLATELET COUNT 126 K/UL (150-450); RED BLOOD COUNT 2.68 M/UL (4.70-6.10); RED CELL DISTRIBUTION WIDTH 20.7 % (11.6-14.8); WHITE BLOOD COUNT 6.7 K/UL (4.8-10.8)
[2019-08-03 05:22] LABS: ANION GAP 4 mmol/L (5-15); BLOOD UREA NITROGEN 8 mg/dL (7-18); CALCIUM 8.2 MG/DL (8.5-10.1); CARBON DIOXIDE 28 MMOL/L (21-32); CHLORIDE 107 MMOL/L (98-107); POTASSIUM 4.1 MMOL/L (3.5-5.1); SODIUM 139 MMOL/L (136-145)
--- NOTE | 2019-08-03 07:25 | NUR ---
NURSE NOTES: Patient received resting in bed, breathing unlabored on room air. No apparent signs of distress observed. No IV site. Soft bilateral wrist restraints on, circulation intact. Bed alarm is on. Bed locked in lowest position, call light placed within reach. Will continue to monitor.
[2019-08-03 07:56] VITALS: BP 130/70
[2019-08-03] MEDS: Spironolactone 50mg tab ORAL SCH (08:08)
[2019-08-03] MEDS: Thiamine 100mg tab ORAL SCH (08:09)
[2019-08-03] MEDS: Lactulose 20gm/30ml UDC ORAL SCH ×3 (08:09→18:00)
[2019-08-03] MEDS: LORazepam 1mg tab ORAL PRN (08:10)
[2019-08-03] MEDS: Magnesium Oxide 400mg tab ORAL SCH ×3 (08:10→18:00)
--- NOTE | 2019-08-03 09:52 | Pulmonology Progress Note ---
Assessment/Plan Problems: (1) End stage liver disease (2) Coagulopathy (3) Hepatic encephalopathy Assessment/Plan no new complains pt is on restrains symptomatic treatment Medical application in process. [facility] informed and accepted. awaiting placement. d/c planning in progress Subjective ROS Limited/Unobtainable: No Constitutional: Reports: no symptoms HEENT: Repors: no symptoms Respiratory: Reports: no symptoms Allergies: Coded Allergies: No Known Allergies (Unverified , 07/03/19) Objective Last 24 Hour Vital Signs Date Time Temp Pulse Resp B/P (MAP) Pulse Ox O2 Delivery O2 Flow Rate FiO2 08/03/19 09:00 Room Air 08/03/19 07:56 98.8 94 18 130/70 (90) 98 08/03/19 04:00 98.7 96 18 137/75 (95) 97 08/03/19 00:00 98.9 95 18 125/75 (92) 97 08/02/19 21:00 Room Air 08/02/19 20:00 99.0 100 18 139/88 (105) 99 08/02/19 16:00 98.0 97 18 125/81 (96) 97 08/02/19 12:00 98.6 89 19 109/63 (78) 98 Intake and Output 08/02/19 08/03/19 18:59 06:59 Intake Total 750 ml Balance 750 ml Other 750 ml # Voids 2 Objective General Appearance: WD/WN HEENT: normocephalic, atraumatic Respiratory/Chest: chest wall non-tender, lungs clear Breasts: no masses Cardiovascular: normal peripheral pulses Abdomen: normal bowel sounds, soft, non tender Genitourinary: normal external genitalia Extremities: no clubbing Neurologic/Psychiatric: client support professional II-XII grossly normal Lymphatic: no neck adenopathy Laboratory Tests 08/03/19 05:01: White Blood Count 6.7, Red Blood Count 2.68L, Hemoglobin 7.6L, Hematocrit 24.7L , Mean Corpuscular Volume 92, Mean Corpuscular Hemoglobin 28.3, Mean Corpuscular Hemoglobin Concent 30.6L, Red Cell Distribution Width 20.7H, Platelet Count 126L, Mean Platelet Volume 6.3L, Neutrophils (%) (Auto) , Lymphocytes (%) (Auto) , Monocytes (%) (Auto) , Eosinophils (%) (Auto) , Basophils (%) (Auto) , Differential Total Cells Counted 100, Neutrophils % ( Manual) 55, Lymphocytes % (Manual) 27, Monocytes % (Manual) 11H, Eosinophils % ( Manual) 7H, Basophils % (Manual) 0, Band Neutrophils 0, Platelet Estimate DecreasedL, Platelet Morphology Normal, Hypochromasia 1+, Anisocytosis 2+, Sodium Level 139, Potassium Level 4.1, Chloride Level 107, Carbon Dioxide Level 28, Anion Gap 4L, Blood Urea Nitrogen 8, Creatinine 1.0, Estimat Glomerular Filtration Rate > 60, Glucose Level 93, Calcium Level 8.2L Current Medications Medications (Trade) Dose Ordered Sig/Tanja Route PRN Reason Start Time Stop Time Status Last Admin Dose Admin Cephalexin (Keflex) 500 mg Q6HR ORAL 07/21/19 18:00 08/04/19 19:00 08/03/19 06:06 Folic Acid (Folate) 1 mg DAILY ORAL 07/31/19 09:00 08/30/19 08:59 08/03/19 08:09 Furosemide (Lasix) 20 mg DAILY ORAL 08/01/19 09:00 08/31/19 08:59 08/03/19 08:09 Lactulose (Cephulac) 20 gm THREE TIMES A DAY ORAL 07/20/19 09:00 08/04/19 12:59 08/03/19 08:09 Lorazepam (Ativan) 2 mg EVERY 4 HOURS PRN ORAL For Anxiety 08/02/19 22:00 08/09/19 21:59 08/03/19 08:10 Magnesium Oxide (Mag-Ox 400mg) 400 mg THREE TIMES A DAY ORAL 07/26/19 13:00 08/25/19 12:59 08/03/19 08:10 Mirtazapine (Remeron) 15 mg BEDTIME ORAL 08/03/19 21:00 09/02/19 20:59 Pantoprazole (Protonix) 40 mg EVERY 12 HOURS ORAL 07/26/19 21:00 08/25/19 20:59 08/03/19 08:26 Potassium Chloride (K-Dur) 40 meq DAILY ORAL 07/20/19 09:00 08/15/19 08:59 08/03/19 08:10 Quetiapine Fumarate (SEROquel) 25 mg TID ORAL 08/03/19 09:00 09/02/19 08:59 08/03/19 08:09 Spironolactone (Aldactone) 50 mg DAILY ORAL 08/01/19 09:00 08/31/19 08:59 08/03/19 08:08 Thiamine HCl (Vitamin B1) 100 mg DAILY ORAL 07/31/19 09:00 08/30/19 08:59 08/03/19 08:09 Ronnell Card MD Aug 03, 2019 09:52
--- NOTE | 2019-08-03 10:20 | NUR ---
NURSE NOTES: Wound assessment cancelled as patient's lip wound is now resolved, healed.
--- NOTE | 2019-08-03 11:00 | NUR ---
PT Note Attempted to see patient for treatment but patient was fast asleep, unable to be aroused.
[2019-08-03 12:00] VITALS: BP 108/42
--- NOTE | 2019-08-03 12:47 | Hematology/Onc Progress Note ---
Assessment/Plan Assessment/Plan ASSESSMENT AND RECS # Anemia of iron deficiency in addition to suppression from etoh abuse and cirrhosis of liver, ETOH --> Anemia workup has been ordered, rule out gi bleed --> aid noted --> No evidence of hemolysis is noted, peripheral smear has been reviewed. --> Hgb goal >7. Transfuse prn. --> Hgb trend: 4.2-->7.1-->7.6 --> 7.6-->7.7-->8.9-->9.1-->8.9-->8.5->8.8-->8.9- ->9.2-->7.6-->7.5->7.4 --> IRON IV 200mg ordered x 1dose (given) --> Medications have been reviewed --> stool ob negative # Thrombocytopenia - secondary to liver cirrhosis and etoh use --> Hep panel and HIV - both negative --> US abd to evaluate for cirrhosis and hsm ordered - Hepatic surface nodularity, suggestive of cirrhosis. Ascites --> Peripheral smear ordered to evaluate for blasts /schistocytes and none significant noted --> abx and other meds have been reviewed --> ok for ppx if plt >50k w/ either heparin or lovenox --> Transfuse if Plt < 20k and fever, or if Plt < 10k without fever --> plt trend 90-->92k-->82-->92k-->85k-->104k-->122k-->126k-->109k-->112k-->123 # Coagulopathy due to liver cirrhosis secondary to Etoh --> GI is following, appreciate recs --> Abdominal ultrasound reviewed --> Supportive care --> lactulose prophylactic --> vit K on prn basis 07/15 # Substance abuse --> psych eval # Hypokalemia --> Replace, continue to monitor # Hypocalcemia --> replete Ca++ prn # Cirrhosis of the liver --> appears chronic # Dvt ppx with scds --> may consider lovenox The timing of this note does not necessarily reflect the time of the patient was seen. GREATLY APPRECIATE CONSULTATION. Subjective Constitutional: Denies: no symptoms, chills, fever, malaise, weakness, other HEENT: Denies: no symptoms, eye pain, blurred vision, tearing, double vision, ear pain, ear discharge, nose pain, nose congestion, throat pain, throat swelling, mouth pain, mouth swelling, other Cardiovascular: Denies: no symptoms, chest pain, edema, irregular heart rate, lightheadedness, palpitations, syncope, other Respiratory: Denies: no symptoms, cough, shortness of breath, SOB with excertion, SOB at rest, sputum, wheezing, other Gastrointestinal/Abdominal: Denies: no symptoms, abdomen distended, abdominal pain, black stools, tarry stools, blood in stool, constipated, diarrhea, difficulty swallowing, nausea, poor appetite, poor fluid intake, rectal bleeding , vomiting, other Genitourinary: Denies: no symptoms, burning, discharge, frequency, flank pain, hematuria, incontinence, pain, urgency, other Endocrine: Denies: no symptoms, excessive sweating, flushing, intolerance to cold, intolerance to heat, increased hunger, increased thirst, increased urine, unexplained weight gain, unexplained weight loss, other Allergies: Coded Allergies: No Known Allergies (Unverified , 07/03/19) Subjective 07/05: no fevers, chills or night sweats noted, on iv iron has been started, on benzo 07/07: extremely agitated overnight, climbin out of bed, on cristina taper, h/h low 07/08: remains on abx, no f/c, no bleeding is noted, no changes 07/09: paracentesis negative for malignant cells, cxr and labs reviewed 07/10: no acute distress, still drowsy, has been attempting to get out of bed 07/11: transferred [facility], stool ob negative, h/h stable 07/12: imaging reviewed, on abx, us paracentesis, no distress 07/13: remains on librium, plt 85, hgb 8.5, no f/c, no night sweats 07/15: no bleeding, pt/ptt elevated, given vit K, no f/c, no chills noted 07/16: for repeat paracentesis, no f/c, no bleeding 07/17: us paracentesis, vs stable, no f/c, denies any pain, on abx, med reviewed 07/18: remains on ancef for now 14d as per id, no bleeding reported, no f/c 07/19: on abx, no f/c, vs stable, no sob, no acute distress, imaging reviewed 07/20: electrolytes repleted, no f/c, confused still 07/22: no events, no bleeding, labs have been reviewed, remains confused 07/23: no f/c, confused, on restraints, denies pain or comfort, on cephalexin 07/24: remains somewhat confused, on restraints, no bleeding, chills 07/25: no f/c, on restraints, seizure precaution, on cephalexin, no distress 07/26: vs stable, no f/c, agitated, refusing care/tx, hgb 7.6 repeat cbc tomorrow am 07/29: no events, no bleeding, no f/c, labs noted++ wrist restraints 07/30: getting out of restraints, no f/c, no bleeding noted 07/31: no events to report, no f/c, in restraints 08/02: remains disoriented, bilat wrist restraints, hgb 7.4, repeat cbc tomorrow 08/03: no bleeding, no night sweats, no f/c Objective Objective Current Medications Medications (Trade) Dose Ordered Sig/Tanja Route PRN Reason Start Time Stop Time Status Last Admin Dose Admin Cephalexin (Keflex) 500 mg Q6HR ORAL 07/21/19 18:00 08/04/19 19:00 08/03/19 12:25 Folic Acid (Folate) 1 mg DAILY ORAL 07/31/19 09:00 08/30/19 08:59 08/03/19 08:09 Furosemide (Lasix) 20 mg DAILY ORAL 08/01/19 09:00 08/31/19 08:59 08/03/19 08:09 Lactulose (Cephulac) 20 gm THREE TIMES A DAY ORAL 07/20/19 09:00 08/04/19 12:59 08/03/19 12:25 Lorazepam (Ativan) 2 mg EVERY 4 HOURS PRN ORAL For Anxiety 08/02/19 22:00 08/09/19 21:59 08/03/19 08:10 Magnesium Oxide (Mag-Ox 400mg) 400 mg THREE TIMES A DAY ORAL 07/26/19 13:00 10/13/19 12:59 08/03/19 12:24 Mirtazapine (Remeron) 15 mg BEDTIME ORAL 08/03/19 21:00 09/02/19 20:59 Pantoprazole (Protonix) 40 mg EVERY 12 HOURS ORAL 07/26/19 21:00 08/25/19 20:59 08/03/19 08:26 Potassium Chloride (K-Dur) 40 meq DAILY ORAL 07/20/19 09:00 08/15/19 08:59 08/03/19 08:10 Quetiapine Fumarate (SEROquel) 25 mg TID ORAL 08/03/19 09:00 09/02/19 08:59 08/03/19 12:25 Spironolactone (Aldactone) 50 mg DAILY ORAL 08/01/19 09:00 08/31/19 08:59 08/03/19 08:08 Thiamine HCl (Vitamin B1) 100 mg DAILY ORAL 07/31/19 09:00 08/30/19 08:59 08/03/19 08:09 Last 24 Hour Vital Signs Date Time Temp Pulse Resp B/P (MAP) Pulse Ox O2 Delivery O2 Flow Rate FiO2 08/03/19 09:00 Room Air 08/03/19 07:56 98.8 94 18 130/70 (90) 98 08/03/19 04:00 98.7 96 18 137/75 (95) 97 08/03/19 00:00 98.9 95 18 125/75 (92) 97 08/02/19 21:00 Room Air 08/02/19 20:00 99.0 100 18 139/88 (105) 99 08/02/19 16:00 98.0 97 18 125/81 (96) 97 08/02/19 12:00 98.6 89 19 109/63 (78) 98 08/02/19 09:00 Room Air 08/02/19 08:00 98.8 106 21 99/65 (76) 97 08/02/19 04:00 97.9 85 18 132/64 (86) 99 08/02/19 00:16 98.7 101 18 124/78 (93) 98 08/01/19 20:15 Room Air 08/01/19 19:53 98.9 102 18 121/79 (93) 98 08/01/19 16:00 98.7 69 18 108/58 (75) 97 Intake and Output 08/02/19 08/03/19 19:00 07:00 Intake Total 750 ml Balance 750 ml Other 750 ml # Voids 2 Labs Test 08/01/19 06:15 08/02/19 05:20 08/03/19 05:01 White Blood Count 5.5 K/UL (4.8-10.8) 6.7 K/UL (4.8-10.8) Red Blood Count 2.61 M/UL (4.70-6.10) 2.68 M/UL (4.70-6.10) Hemoglobin 7.4 G/DL (14.2-18.0) 7.6 G/DL (14.2-18.0) Hematocrit 24.2 % (42.0-52.0) 24.7 % (42.0-52.0) Mean Corpuscular Volume 93 FL (80-99) 92 FL (80-99) Mean Corpuscular Hemoglobin 28.3 PG (27.0-31.0) 28.3 PG (27.0-31.0) Mean Corpuscular Hemoglobin Concent 30.5 G/DL (32.0-36.0) 30.6 G/DL (32.0-36.0) Red Cell Distribution Width 20.5 % (11.6-14.8) 20.7 % (11.6-14.8) Platelet Count 123 K/UL (150-450) 126 K/UL (150-450) Mean Platelet Volume 6.3 FL (6.5-10.1) 6.3 FL (6.5-10.1) Neutrophils (%) (Auto) % (45.0-75.0) % (45.0-75.0) Lymphocytes (%) (Auto) % (20.0-45.0) % (20.0-45.0) Monocytes (%) (Auto) % (1.0-10.0) % (1.0-10.0) Eosinophils (%) (Auto) % (0.0-3.0) % (0.0-3.0) Basophils (%) (Auto) % (0.0-2.0) % (0.0-2.0) Differential Total Cells Counted 100 100 Neutrophils % (Manual) 54 % (45-75) 55 % (45-75) Lymphocytes % (Manual) 24 % (20-45) 27 % (20-45) Monocytes % (Manual) 17 % (1-10) 11 % (1-10) Eosinophils % (Manual) 5 % (0-3) 7 % (0-3) Basophils % (Manual) 0 % (0-2) 0 % (0-2) Band Neutrophils 0 % (0-8) 0 % (0-8) Platelet Estimate Decreased Decreased Platelet Morphology Normal Normal Hypochromasia 1+ 1+ Anisocytosis 2+ 2+ Sodium Level 143 MMOL/L (136-145) 141 MMOL/L (136-145) 139 MMOL/L (136-145) Potassium Level 3.7 MMOL/L (3.5-5.1) 4.1 MMOL/L (3.5-5.1) 4.1 MMOL/L (3.5-5.1) Chloride Level 112 MMOL/L (98-107) 109 MMOL/L (98-107) 107 MMOL/L (98-107) Carbon Dioxide Level 26 MMOL/L (21-32) 27 MMOL/L (21-32) 28 MMOL/L (21-32) Anion Gap 5 mmol/L (5-15) 5 mmol/L (5-15) 4 mmol/L (5-15) Blood Urea Nitrogen 6 mg/dL (7-18) 7 mg/dL (7-18) 8 mg/dL (7-18) Creatinine 0.9 MG/DL (0.55-1.30) 1.1 MG/DL (0.55-1.30) 1.0 MG/DL (0.55-1.30) Estimat Glomerular Filtration Rate > 60 mL/min (>60) > 60 mL/min (>60) > 60 mL/min (>60) Glucose Level 91 MG/DL (74-106) 91 MG/DL (74-106) 93 MG/DL (74-106) Calcium Level 8.1 MG/DL (8.5-10.1) 8.1 MG/DL (8.5-10.1) 8.2 MG/DL (8.5-10.1) Height (Feet): 5 Height (Inches): 8.00 Weight (Pounds): 152 Objective Physical Exam: Vitals: reviewed General Appearance: NAD, disoriented, restraints+ HEENT: normocephalic, atraumatic Neck: non-tender, normal alignment Respiratory/Chest: normal breath sounds bilaterally Cardiovascular/Chest: normal peripheral pulses, normal rate Abdomen: normal bowel sounds, soft, nontender +++ ascites Avery Guo MD Aug 03, 2019 12:47
[2019-08-03 16:00] VITALS: BP 114/50
--- NOTE | 2019-08-03 19:29 | NUR ---
HAND-OFF: Report given to Viridiana ROCHA.
--- NOTE | 2019-08-03 19:34 | NUR ---
NURSE NOTES: Received report from JOSEFINA Tan (Liz). Patient sleeping. On room air, no signs of distress or labored breathing. No IV access, MD aware. Bed in lowest position. Will continue to monitor.
[2019-08-03 20:00] VITALS: BP 102/73
[2019-08-04] VITALS: BP 134/83
--- NOTE | 2019-08-04 00:21 | General Progress Note ---
Assessment/Plan Problem List: (1) Anemia ICD Codes: D64.9 - Anemia, unspecified SNOMED: 817120009 Qualifiers: Qualified Codes: D64.9 - Anemia, unspecified (2) Acute alcoholic intoxication ICD Codes: F10.929 - Alcohol use, unspecified with intoxication, unspecified SNOMED: 50554249, 8084939 Qualifiers: Qualified Codes: F10.929 - Alcohol use, unspecified with intoxication, unspecified (3) Abdominal distension ICD Codes: R14.0 - Abdominal distension (gaseous) SNOMED: 71355599 (4) Facial trauma ICD Codes: S09.93XA - Unspecified injury of face, initial encounter SNOMED: 182662811 (5) Cirrhosis ICD Codes: K74.60 - Unspecified cirrhosis of liver SNOMED: 78978871 (6) Ascites ICD Codes: R18.8 - Other ascites SNOMED: 837113811 (7) Hepatic encephalopathy ICD Codes: K72.90 - Hepatic failure, unspecified without coma SNOMED: 91710324 (8) Coagulopathy ICD Codes: D68.9 - Coagulation defect, unspecified SNOMED: 84293279 (9) End stage liver disease ICD Codes: K72.90 - Hepatic failure, unspecified without coma SNOMED: 591156431 Status: stable, unchanged Assessment/Plan: 48-year-old male with past medical history of ETOH abuse presented found down. Overall improving s/p paracentesis 07/16/19 #Encephalopathy likely multifactorial including hepatic encephalopathy ( elevated ammonia), as well as sepsis with bacteremia due to MSSA. - RESOLVED #Sepsis secondary to bacteremia due to MSSA- RESOLVED -s/p vancomycin and Zosyn (07/06), now cefazolin per ID recs. Keflex for 2 weeks started 07/21/19, (to be finished on the 04 of August) -Repeat blood cultures are negative -Infectious disease consult, appreciate recs -Palliative care consult appreciated. Medical application in process. [facility] informed and accepted #Hypernatremia- resolved encourage PO intake # Lice - primerin treatment - Ordered to clip hair as persistent lice noted despite 2 shampoo treatment #Liver cirrhosis secondary to EtOH # ETOH withdrawal. Discontinue Libirum - DF 31 -MELD 15 on admission -Abdominal ultrasound reviewed -Status post paracentesis 07/05/2019 with removal of 8 L. -Albumin for BP support as needed -Supportive care - lactulose NV - Repeat paracentesis 07/16. Recheck INR, VIT K and ffp as needed -Add Furosemide 20mg and aldactone 50mg daily. Check chemistry prn -May need paracentesis on Monday #Anemia, likely might multifactorial including acute blood loss anemia, anemia of chronic disease -Hematology consult, appreciate recs -Iron panel: Reviewed -Low folate: Replace -B12 within normal limits above 800 -GI consult, appreciate recs. HOLD OFF NGT for now due to risk with possible esophageal varices. PENDING EGD per GI decision. Patient is gradually waking up and eating is still a problem. MONITOR closely as he is now 9 days into the Hospital stay. #Thrombocytopenia -due to cirrhosis- stable #Substance abuse -Nodular liver in ultrasound suggestive of cirrhosis -Check hepatitis and HIV: hiv neg, hepatitis panel negative -Social work Consult - Psyche consult, appreciate recs #Hypokalemia Replace as needed, will replace today 40meq by mouth # Hypomagnesemia Replace today # Hypocalcemia - replace as needed #Dysphagia -Etiology due to agitation, likely due underlying hepatic encephalopathy vs side effect of Ativan #full code Per PT, out of chair to bed with sitter # Disposition SW and CM follow up needed. Homeless. hospice. palliative care consult. [facility] The time of my note may not reflect the time of my patient encounter. I spent 28 minutes on this encounter, greater than 50 percent in counseling and care coordination Subjective Date patient seen: Aug 03, 2019 Time patient seen: 12:30 Constitutional: Denies: chills, diaphoresis, fever, malaise, weakness, other HEENT: Denies: eye pain, blurred vision, tearing, double vision, ear pain, ear discharge, nose pain, nose congestion, throat pain, throat swelling, mouth pain , mouth swelling, other Cardiovascular: Denies: chest pain, edema, irregular heart rate, lightheadedness, palpitations, syncope, other Respiratory: Denies: cough, orthopnea, shortness of breath, SOB with excertion , SOB at rest, sputum, stridor, wheezing, other Gastrointestinal/Abdominal: Denies: abdomen distended, abdominal pain, black stools, tarry stools, blood in stool, constipated, diarrhea, difficulty swallowing, nausea, poor appetite, poor fluid intake, rectal bleeding, vomiting , other Genitourinary: Reports: no symptoms; Denies: burning, discharge, frequency, flank pain, hematuria, incontinence, pain, urgency, other Neurologic/Psychiatric: Denies: anxiety, depressed, emotional problems, headache, numbness, paresthesia, pre-existing deficit, seizure, tingling, tremors, weakness, other Endocrine: Denies: excessive sweating, flushing, intolerance to cold, intolerance to heat, increased hunger, increased thirst, increased urine, unexplained weight gain, unexplained weight loss, other Hematologic/Lymphatic: Denies: anemia, easy bleeding, easy bruising, other Allergies: Coded Allergies: No Known Allergies (Unverified , 07/03/19) Subjective No acute events overnight. Cirrhosis: denies abdominal pain, discomfort, fever chills. S/p sepsis: continued on keflex, no further fever or chills. Agitation: stable on seroquel Objective Last 24 Hour Vital Signs Date Time Temp Pulse Resp B/P (MAP) Pulse Ox O2 Delivery O2 Flow Rate FiO2 08/03/19 21:00 Room Air 08/03/19 20:00 99.0 110 19 102/73 (83) 96 08/03/19 16:00 98.0 90 18 114/50 (71) 96 08/03/19 12:00 97.8 94 17 108/42 (64) 94 08/03/19 09:00 Room Air 08/03/19 07:56 98.8 94 18 130/70 (90) 98 08/03/19 04:00 98.7 96 18 137/75 (95) 97 Intake and Output 08/03/19 08/04/19 19:00 07:00 Intake Total 640 ml Balance 640 ml Intake Oral 640 ml # Voids 4 Laboratory Tests 08/03/19 05:01: White Blood Count 6.7, Red Blood Count 2.68L, Hemoglobin 7.6L, Hematocrit 24.7L , Mean Corpuscular Volume 92, Mean Corpuscular Hemoglobin 28.3, Mean Corpuscular Hemoglobin Concent 30.6L, Red Cell Distribution Width 20.7H, Platelet Count 126L, Mean Platelet Volume 6.3L, Neutrophils (%) (Auto) , Lymphocytes (%) (Auto) , Monocytes (%) (Auto) , Eosinophils (%) (Auto) , Basophils (%) (Auto) , Differential Total Cells Counted 100, Neutrophils % ( Manual) 55, Lymphocytes % (Manual) 27, Monocytes % (Manual) 11H, Eosinophils % ( Manual) 7H, Basophils % (Manual) 0, Band Neutrophils 0, Platelet Estimate DecreasedL, Platelet Morphology Normal, Hypochromasia 1+, Anisocytosis 2+, Sodium Level 139, Potassium Level 4.1, Chloride Level 107, Carbon Dioxide Level 28, Anion Gap 4L, Blood Urea Nitrogen 8, Creatinine 1.0, Estimat Glomerular Filtration Rate > 60, Glucose Level 93, Calcium Level 8.2L Height (Feet): 5 Height (Inches): 8.00 Weight (Pounds): 152 General Appearance: WD/WN, no apparent distress, alert EENT: PERRL/EOMI, scleral icterus Neck: non-tender, normal alignment Cardiovascular: normal peripheral pulses, normal rate, regular rhythm, no gallop/murmur, no JVD Respiratory/Chest: chest wall non-tender, lungs clear, normal breath sounds, no respiratory distress Abdomen: other - Distended, soft, nontender to palpation Extremities: normal range of motion, non-tender, normal inspection, no calf tenderness Neurologic: medical resident II-XII grossly normal, no motor/sensory deficits, abnormal gait , alert, oriented x 3, other - no asterixis Skin: normal pigmentation, warm/dry Marck Damico D.O. Aug 04, 2019 00:21
[2019-08-04 04:00] VITALS: BP 119/79
[2019-08-04] MEDS: Cephalexin 500mg cap ORAL SCH ×4 (05:50→17:47)
[2019-08-04 06:36] LABS: BASOPHILS % (AUTO) 0.6 % (0.0-2.0); EOSINOPHILS % (AUTO) 3.3 % (0.0-3.0); HEMATOCRIT 29.2 % (42.0-52.0); LYMPHOCYTES % (AUTO) 20.7 % (20.0-45.0); MEAN CORPUSCULAR VOLUME 93 FL (80-99); MONOCYTES % (AUTO) 9.6 % (1.0-10.0); NEUTROPHILS % (AUTO) 65.8 % (45.0-75.0); PLATELET COUNT 132 K/UL (150-450); RED BLOOD COUNT 3.12 M/UL (4.70-6.10); RED CELL DISTRIBUTION WIDTH 20.7 % (11.6-14.8); WHITE BLOOD COUNT 9.1 K/UL (4.8-10.8)
--- NOTE | 2019-08-04 07:08 | NUR ---
HAND-OFF: Report given to JOSEFINA Valdivia.
[2019-08-04 07:22] LABS: ALANINE AMINOTRANSFERASE 22 U/L (12-78); ALBUMIN 1.2 G/DL (3.4-5.0); ALBUMIN/GLOBULIN RATIO 0.2 (1.0-2.7); ALKALINE PHOSPHATASE 131 U/L (46-116); ANION GAP 7 mmol/L (5-15); ASPARTATE AMINO TRANSFERASE 91 U/L (15-37); BILIRUBIN,TOTAL 1.3 MG/DL (0.2-1.0); BLOOD UREA NITROGEN 7 mg/dL (7-18); CALCIUM 8.5 MG/DL (8.5-10.1); CARBON DIOXIDE 26 MMOL/L (21-32); CHLORIDE 106 MMOL/L (98-107); CREATININE 0.9 MG/DL (0.55-1.30); PHOSPHORUS 4.1 MG/DL (2.5-4.9); SODIUM 139 MMOL/L (136-145)
[2019-08-04 07:23] LABS: BILIRUBIN,DIRECT 0.8 MG/DL (0.0-0.3)
--- NOTE | 2019-08-04 07:51 | NUR ---
NURSE NOTES: Received report from JOSEFINA Kemp. Pt sleeping in bed, soft restraints on, no apparent distress noted. Bed in lowest position, side rails up and padded, call light within reach.
[2019-08-04 08:00] VITALS: BP 119/73
[2019-08-04] MEDS: Thiamine 100mg tab ORAL SCH (09:00)
[2019-08-04] MEDS: Lactulose 20gm/30ml UDC ORAL SCH ×3 (09:00→17:47)
[2019-08-04] MEDS: Spironolactone 50mg tab ORAL SCH (09:00)
[2019-08-04] MEDS: Magnesium Oxide 400mg tab ORAL SCH ×3 (09:00→17:47)
--- NOTE | 2019-08-04 10:01 | NUR ---
NURSE NOTES: Pt's AM medications held due to pt being asleep. VS stable and no apparent distress noted. Pt placed in semi-yanez position, HOB elevated, restraints on, no swelling, skin intact. Bed in lowest position, side rails up, call light within reach, bed alarm on.
--- NOTE | 2019-08-04 11:30 | NUR ---
PT Note Attempted to see patient several times this AM but patient was lethargic; opens eyes momentarily when called by name. He was unable to keep his eyes open to participate with PT. RN was made aware.
[2019-08-04 12:00] VITALS: BP 113/74
--- NOTE | 2019-08-04 13:02 | NUR ---
NURSE NOTES: RN held pt's seroquel d/t pt being lethargic. Pt is now awake in bed, finished lunch tray, was able to demonstrate asterixis test with hands. IV intact and running Mg. Pt continuously to be restless, pulled out his condom catheter, attempted to get out of the bed when RN released restraints for repositioning and providing hygiene to the pt. Bed in locked in lowest position, side rails up, call light within reach. Will continue to monitor.
[2019-08-04 16:00] VITALS: BP 113/79
--- NOTE | 2019-08-04 16:45 | NUR ---
NURSE NOTES: Pt has not urinated today. RN performed bladders scan with the residual of 653 mL. RN left a message for Deshaun, waiting for new order.
--- NOTE | 2019-08-04 18:43 | NUR ---
NURSE NOTES: RN received call back from Dr. Damico with order for bladder scan Q6H and straight catheterization if residual >250 mL. RN performed straight catheterization with output of 150 mL. Pt had 1 episode of urine incontinence, soaking 50% of the kerri.
--- NOTE | 2019-08-04 19:14 | NUR ---
HAND-OFF: Report given to JOSEFINA Paniagua.
--- NOTE | 2019-08-04 19:44 | NUR ---
NURSE NOTES: Received patient in bed, asleep, alert, oriented X4 no acute distress noted, responsive to verbal and tactile stimuli, call light is within reach, bed is in low position, locked and alarm is on. Will continue to monitor for comfort and safety. Addendum: 08/04/19 at 1948 by SHAHNAZ URIAS RN patient is Greek speaking only, has bilateral wrist restraints, confused at times, IV site is clean dry and intact.
[2019-08-04 20:00] VITALS: BP 111/77
--- NOTE | 2019-08-04 21:40 | General Progress Note ---
Assessment/Plan Problem List: (1) Anemia ICD Codes: D64.9 - Anemia, unspecified SNOMED: 215751259 Qualifiers: Qualified Codes: D64.9 - Anemia, unspecified (2) Acute alcoholic intoxication ICD Codes: F10.929 - Alcohol use, unspecified with intoxication, unspecified SNOMED: 06049237, 9167028 Qualifiers: Qualified Codes: F10.929 - Alcohol use, unspecified with intoxication, unspecified (3) Abdominal distension ICD Codes: R14.0 - Abdominal distension (gaseous) SNOMED: 49918547 (4) Facial trauma ICD Codes: S09.93XA - Unspecified injury of face, initial encounter SNOMED: 916583068 (5) Cirrhosis ICD Codes: K74.60 - Unspecified cirrhosis of liver SNOMED: 90265905 (6) Ascites ICD Codes: R18.8 - Other ascites SNOMED: 159216748 (7) Hepatic encephalopathy ICD Codes: K72.90 - Hepatic failure, unspecified without coma SNOMED: 34742231 (8) Coagulopathy ICD Codes: D68.9 - Coagulation defect, unspecified SNOMED: 56176980 (9) End stage liver disease ICD Codes: K72.90 - Hepatic failure, unspecified without coma SNOMED: 866840907 Status: stable, unchanged Assessment/Plan: 48-year-old male with past medical history of ETOH abuse presented found down. Overall improving s/p paracentesis 07/16/19 #Encephalopathy likely multifactorial including hepatic encephalopathy ( elevated ammonia), as well as sepsis with bacteremia due to MSSA. - Improved #Sepsis secondary to bacteremia due to MSSA- RESOLVED -s/p vancomycin and Zosyn (07/06), now cefazolin per ID recs. Keflex for 2 weeks started 07/21/19, (to be finished today, on the 04 of August) -Repeat blood cultures are negative -Infectious disease consult, appreciate recs -Palliative care consult appreciated. Medical application in process. [facility] informed and accepted #Hypernatremia- resolved encourage PO intake # Lice - primerin treatment - Ordered to clip hair as persistent lice noted despite 2 shampoo treatment #Liver cirrhosis secondary to EtOH # ETOH withdrawal. Discontinue Libirum - DF 31 -MELD 15 on admission -Abdominal ultrasound reviewed -Status post paracentesis 07/05/2019 with removal of 8 L. -Albumin for BP support as needed -Supportive care - lactulose MD - Repeat paracentesis 07/16. Recheck INR, VIT K and ffp as needed -Add Furosemide 20mg and aldactone 50mg daily. Check chemistry prn -May need paracentesis on Monday #urinary retention - PVRs Q6hr , straight cath for >250cc #Anemia, likely might multifactorial including acute blood loss anemia, anemia of chronic disease -Hematology consult, appreciate recs -Iron panel: Reviewed -Low folate: Replace -B12 within normal limits above 800 -GI consult, appreciate recs. HOLD OFF NGT for now due to risk with possible esophageal varices. PENDING EGD per GI decision. Patient is gradually waking up and eating is still a problem. MONITOR closely as he is now 9 days into the Hospital stay. #Thrombocytopenia -due to cirrhosis- stable #Substance abuse -Nodular liver in ultrasound suggestive of cirrhosis -Check hepatitis and HIV: hiv neg, hepatitis panel negative -Social work Consult - Psyche consult, appreciate recs #Hypokalemia Replace as needed, will replace today 40meq by mouth # Hypomagnesemia Replace today # Hypocalcemia - replace as needed #Dysphagia -Etiology due to agitation, likely due underlying hepatic encephalopathy vs side effect of Ativan #full code Per PT, out of chair to bed with sitter # Disposition SW and CM follow up needed. Homeless. hospice. palliative care consult. [facility] The time of my note may not reflect the time of my patient encounter. I spent 37 minutes on this encounter, greater than 50 percent in counseling and care coordination Subjective Date patient seen: Aug 04, 2019 ROS Limited/Unobtainable: Yes Allergies: Coded Allergies: No Known Allergies (Unverified , 07/03/19) Subjective No acute events overnight. Patient more sedated today, but alert. Refusing to answer ROS questions. Cirrhosis: denies abdominal pain, discomfort, fever chills. S/p sepsis: continued on keflex, no further fever or chills. Agitation: stable on seroquel. Later in the day the patient had urinary retention of 650cc. Straight cath ordered. Objective Last 24 Hour Vital Signs Date Time Temp Pulse Resp B/P (MAP) Pulse Ox O2 Delivery O2 Flow Rate FiO2 08/04/19 16:00 97.2 99 22 113/79 (90) 98 08/04/19 12:00 96.8 87 20 113/74 (87) 95 08/04/19 09:00 Room Air 08/04/19 08:00 97.2 93 20 119/73 (88) 93 08/04/19 04:00 96.9 110 19 119/79 (92) 96 08/04/19 00:00 98.5 118 19 134/83 (100) 96 Intake and Output 08/03/19 08/04/19 19:00 07:00 Intake Total 640 ml 1390 ml Output Total 8300 ml Balance 640 ml -6910 ml Intake Oral 640 ml 640 ml Other 750 ml Stool Total 300 ml Other 8000 ml # Voids 4 2 # Bowel Movements 1 Laboratory Tests 08/04/19 05:05: White Blood Count 9.1, Red Blood Count 3.12L, Hemoglobin 9.0L, Hematocrit 29.2L , Mean Corpuscular Volume 93, Mean Corpuscular Hemoglobin 28.8, Mean Corpuscular Hemoglobin Concent 30.8L, Red Cell Distribution Width 20.7H, Platelet Count 132L, Mean Platelet Volume 5.3L, Neutrophils (%) (Auto) 65.8, Lymphocytes (%) (Auto) 20.7, Monocytes (%) (Auto) 9.6, Eosinophils (%) (Auto) 3.3H, Basophils (%) (Auto) 0.6, Sodium Level 139, Potassium Level 4.0, Chloride Level 106, Carbon Dioxide Level 26, Anion Gap 7, Blood Urea Nitrogen 7, Creatinine 0.9, Estimat Glomerular Filtration Rate > 60, Glucose Level 74, Calcium Level 8.5, Phosphorus Level 4.1, Magnesium Level 1.2L, Total Bilirubin 1.3H, Direct Bilirubin 0.8H, Aspartate Amino Transf (AST/SGOT) 91H, Alanine Aminotransferase (ALT/SGPT) 22, Alkaline Phosphatase 131H, Total Protein 8.9H, Albumin 1.2L, Globulin 7.7, Albumin/Globulin Ratio 0.2L Height (Feet): 5 Height (Inches): 8.00 Weight (Pounds): 152 General Appearance: WD/WN, no apparent distress, alert EENT: PERRL/EOMI, scleral icterus Neck: non-tender, normal alignment, supple Cardiovascular: normal peripheral pulses, normal rate, regular rhythm Respiratory/Chest: lungs clear, normal breath sounds Abdomen: normal bowel sounds, non tender, soft, distended, other - no guarding or rebound Extremities: normal range of motion, non-tender 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 Aug 04, 2019 21:40
[2019-08-05] VITALS: BP 127/83
[2019-08-05 04:00] VITALS: BP 133/84
[2019-08-05 07:00] LABS: BASOPHILS % (AUTO) 1.1 % (0.0-2.0); EOSINOPHILS % (AUTO) 6.3 % (0.0-3.0); MEAN CORPUSCULAR VOLUME 93 FL (80-99); MONOCYTES % (AUTO) 11.4 % (1.0-10.0); NEUTROPHILS % (AUTO) 57.3 % (45.0-75.0); PLATELET COUNT 152 K/UL (150-450); RED CELL DISTRIBUTION WIDTH 21.1 % (11.6-14.8); WHITE BLOOD COUNT 8.8 K/UL (4.8-10.8)
[2019-08-05 07:23] LABS: ALANINE AMINOTRANSFERASE 19 U/L (12-78); ALBUMIN 1.2 G/DL (3.4-5.0); ALBUMIN/GLOBULIN RATIO 0.2 (1.0-2.7); ALKALINE PHOSPHATASE 128 U/L (46-116); ANION GAP 6 mmol/L (5-15); ASPARTATE AMINO TRANSFERASE 81 U/L (15-37); BLOOD UREA NITROGEN 7 mg/dL (7-18); CALCIUM 8.5 MG/DL (8.5-10.1); CARBON DIOXIDE 26 MMOL/L (21-32); CHLORIDE 105 MMOL/L (98-107); CREATININE 0.9 MG/DL (0.55-1.30); PHOSPHORUS 3.9 MG/DL (2.5-4.9); POTASSIUM 3.5 MMOL/L (3.5-5.1); SODIUM 137 MMOL/L (136-145)
--- NOTE | 2019-08-05 07:30 | NUR ---
HAND-OFF: Report given to Catina ROCHA.
--- NOTE | 2019-08-05 07:43 | NUR ---
NURSE NOTES: Pt resting in bed. Awake, A/O x 1, barbadian only, restrains on, skin intact, abd distended, bruises on upper thigh. refused scd. HOB elevated >30 degrees. bed alarm on, bed in low position. fall precaution maintained. will continue to monitor. Addendum: 08/05/19 at 1241 by Catina Carpenter RN Redness/ no bruises on left upper thigh/buttocks.
[2019-08-05 08:00] VITALS: BP 132/80
[2019-08-05] MEDS: Spironolactone 50mg tab ORAL SCH (08:58)
[2019-08-05] MEDS: Magnesium Oxide 400mg tab ORAL SCH ×3 (08:59→17:18)
[2019-08-05] MEDS: Thiamine 100mg tab ORAL SCH (08:59)
[2019-08-05] MEDS: Lactulose 20gm/30ml UDC ORAL SCH ×3 (08:59→17:17)
--- NOTE | 2019-08-05 09:43 | Hematology/Onc Progress Note ---
Assessment/Plan Assessment/Plan ASSESSMENT AND RECS # Anemia of iron deficiency in addition to suppression from etoh abuse and cirrhosis of liver, ETOH --> Anemia workup has been ordered, rule out gi bleed --> aid noted --> No evidence of hemolysis is noted, peripheral smear has been reviewed. --> Hgb goal >7. Transfuse prn. --> Hgb trend: 4.2-->7.1-->7.6 --> 7.6-->7.7-->8.9-->9.1-->8.9-->8.5->8.8-->8.9- ->9.2-->7.6-->7.5->7.4-->8 --> IRON IV 200mg ordered x 1dose (given) --> Medications have been reviewed --> stool ob negative # Thrombocytopenia - secondary to liver cirrhosis and etoh use --> Hep panel and HIV - both negative --> US abd to evaluate for cirrhosis and hsm ordered - Hepatic surface nodularity, suggestive of cirrhosis. Ascites --> Peripheral smear ordered to evaluate for blasts /schistocytes and none significant noted --> abx and other meds have been reviewed --> ok for ppx if plt >50k w/ either heparin or lovenox --> Transfuse if Plt < 20k and fever, or if Plt < 10k without fever --> plt trend 90-->92k-->82-->92k-->85k-->104k-->122k-->126k-->109k-->112k-->123 -->150 # Coagulopathy due to liver cirrhosis secondary to Etoh --> GI is following, appreciate recs --> Abdominal us reviewed --> Supportive care --> lactulose prophylactic --> vit K on prn basis 07/15 # Substance abuse --> psych eval # Hypokalemia --> Replace, continue to monitor # Hypocalcemia --> replete Ca++ prn # Cirrhosis of the liver --> appears chronic # Dvt ppx with scds --> may consider lovenox The timing of this note does not necessarily reflect the time of the patient was seen. GREATLY APPRECIATE CONSULTATION. Subjective HEENT: Denies: no symptoms, eye pain, blurred vision, tearing, double vision, ear pain, ear discharge, nose pain, nose congestion, throat pain, throat swelling, mouth pain, mouth swelling, other Cardiovascular: Denies: no symptoms, chest pain, edema, irregular heart rate, lightheadedness, palpitations, syncope, other Gastrointestinal/Abdominal: Denies: no symptoms, abdomen distended, abdominal pain, black stools, tarry stools, blood in stool, constipated, diarrhea, difficulty swallowing, nausea, poor appetite, poor fluid intake, rectal bleeding , vomiting, other Genitourinary: Denies: no symptoms, burning, discharge, frequency, flank pain, hematuria, incontinence, pain, urgency, other Neurologic/Psychiatric: Denies: no symptoms, anxiety, depressed, emotional problems, headache, numbness, paresthesia, pre-existing deficit, seizure, tingling, tremors, weakness, other Endocrine: Denies: no symptoms, excessive sweating, flushing, intolerance to cold, intolerance to heat, increased hunger, increased thirst, increased urine, unexplained weight gain, unexplained weight loss, other Allergies: Coded Allergies: No Known Allergies (Unverified , 07/03/19) Subjective 07/05: no fevers, chills or night sweats noted, on iv iron has been started, on benzo 07/07: extremely agitated overnight, climbin out of bed, on cristina taper, h/h low 07/08: remains on abx, no f/c, no bleeding is noted, no changes 07/09: paracentesis negative for malignant cells, cxr and labs reviewed 07/10: no acute distress, still drowsy, has been attempting to get out of bed 07/11: transferred [facility], stool ob negative, h/h stable 07/12: imaging reviewed, on abx, us paracentesis, no distress 07/13: remains on librium, plt 85, hgb 8.5, no f/c, no night sweats 07/15: no bleeding, pt/ptt elevated, given vit K, no f/c, no chills noted 07/16: for repeat paracentesis, no f/c, no bleeding 07/17: us paracentesis, vs stable, no f/c, denies any pain, on abx, med reviewed 07/18: remains on ancef for now 14d as per id, no bleeding reported, no f/c 07/19: on abx, no f/c, vs stable, no sob, no acute distress, imaging reviewed 07/20: electrolytes repleted, no f/c, confused still 07/22: no events, no bleeding, labs have been reviewed, remains confused 07/23: no f/c, confused, on restraints, denies pain or comfort, on cephalexin 07/24: remains somewhat confused, on restraints, no bleeding, chills 07/25: no f/c, on restraints, seizure precaution, on cephalexin, no distress 07/26: vs stable, no f/c, agitated, refusing care/tx, hgb 7.6 repeat cbc tomorrow am 07/29: no events, no bleeding, no f/c, labs noted++ wrist restraints 07/30: getting out of restraints, no f/c, no bleeding noted 07/31: no events to report, no f/c, in restraints 08/02: remains disoriented, bilat wrist restraints, hgb 7.4, repeat cbc tomorrow 08/03: no bleeding, no night sweats, no f/c 08/05: no events, no bleeding, no night sweats, ams Objective Objective Current Medications Medications (Trade) Dose Ordered Sig/Tanja Route PRN Reason Start Time Stop Time Status Last Admin Dose Admin Folic Acid (Folate) 1 mg DAILY ORAL 07/31/19 09:00 08/30/19 08:59 08/05/19 08:59 Furosemide (Lasix) 20 mg DAILY ORAL 08/01/19 09:00 08/31/19 08:59 08/05/19 08:59 Lactulose (Cephulac) 20 gm THREE TIMES A DAY ORAL 08/04/19 13:00 08/19/19 16:59 08/05/19 08:59 Lorazepam (Ativan) 2 mg EVERY 4 HOURS PRN ORAL For Anxiety 08/02/19 22:00 08/09/19 21:59 08/03/19 08:10 Magnesium Oxide (Mag-Ox 400mg) 400 mg THREE TIMES A DAY ORAL 07/26/19 13:00 08/25/19 12:59 08/05/19 08:59 Mirtazapine (Remeron) 15 mg BEDTIME ORAL 08/03/19 21:00 09/02/19 20:59 08/04/19 20:33 Pantoprazole (Protonix) 40 mg EVERY 12 HOURS ORAL 07/26/19 21:00 08/25/19 20:59 08/05/19 08:59 Potassium Chloride (K-Dur) 40 meq DAILY ORAL 07/20/19 09:00 08/15/19 08:59 08/05/19 08:59 Quetiapine Fumarate (SEROquel) 25 mg TID ORAL 08/03/19 09:00 09/02/19 08:59 08/05/19 08:59 Spironolactone (Aldactone) 50 mg DAILY ORAL 08/01/19 09:00 08/31/19 08:59 08/05/19 08:58 Thiamine HCl (Vitamin B1) 100 mg DAILY ORAL 07/31/19 09:00 08/30/19 08:59 08/05/19 08:59 Last 24 Hour Vital Signs Date Time Temp Pulse Resp B/P (MAP) Pulse Ox O2 Delivery O2 Flow Rate FiO2 08/05/19 09:00 Room Air 08/05/19 08:00 98.1 98 20 132/80 (97) 99 08/05/19 04:00 98.1 100 20 133/84 (100) 08/05/19 00:00 98.4 106 18 127/83 (98) 08/04/19 21:43 Room Air 08/04/19 20:00 98.4 104 20 111/77 (88) 08/04/19 16:00 97.2 99 22 113/79 (90) 98 08/04/19 12:00 96.8 87 20 113/74 (87) 95 08/04/19 09:00 Room Air 08/04/19 08:00 97.2 93 20 119/73 (88) 93 08/04/19 04:00 96.9 110 19 119/79 (92) 96 08/04/19 00:00 98.5 118 19 134/83 (100) 96 08/03/19 21:00 Room Air 08/03/19 20:00 99.0 110 19 102/73 (83) 96 08/03/19 16:00 98.0 90 18 114/50 (71) 96 08/03/19 12:00 97.8 94 17 108/42 (64) 94 Intake and Output 08/04/19 08/05/19 19:00 07:00 Intake Total 400 ml Balance 400 ml IV Total 400 ml Bladder Scan Volume Amount 173 Labs Test 08/03/19 05:01 08/04/19 05:05 08/05/19 06:00 White Blood Count 6.7 K/UL (4.8-10.8) 9.1 K/UL (4.8-10.8) 8.8 K/UL (4.8-10.8) Red Blood Count 2.68 M/UL (4.70-6.10) 3.12 M/UL (4.70-6.10) 2.80 M/UL (4.70-6.10) Hemoglobin 7.6 G/DL (14.2-18.0) 9.0 G/DL (14.2-18.0) 8.0 G/DL (14.2-18.0) Hematocrit 24.7 % (42.0-52.0) 29.2 % (42.0-52.0) 26.0 % (42.0-52.0) Mean Corpuscular Volume 92 FL (80-99) 93 FL (80-99) 93 FL (80-99) Mean Corpuscular Hemoglobin 28.3 PG (27.0-31.0) 28.8 PG (27.0-31.0) 28.7 PG (27.0-31.0) Mean Corpuscular Hemoglobin Concent 30.6 G/DL (32.0-36.0) 30.8 G/DL (32.0-36.0) 30.9 G/DL (32.0-36.0) Red Cell Distribution Width 20.7 % (11.6-14.8) 20.7 % (11.6-14.8) 21.1 % (11.6-14.8) Platelet Count 126 K/UL (150-450) 132 K/UL (150-450) 152 K/UL (150-450) Mean Platelet Volume 6.3 FL (6.5-10.1) 5.3 FL (6.5-10.1) 6.0 FL (6.5-10.1) Neutrophils (%) (Auto) % (45.0-75.0) 65.8 % (45.0-75.0) 57.3 % (45.0-75.0) Lymphocytes (%) (Auto) % (20.0-45.0) 20.7 % (20.0-45.0) 24.0 % (20.0-45.0) Monocytes (%) (Auto) % (1.0-10.0) 9.6 % (1.0-10.0) 11.4 % (1.0-10.0) Eosinophils (%) (Auto) % (0.0-3.0) 3.3 % (0.0-3.0) 6.3 % (0.0-3.0) Basophils (%) (Auto) % (0.0-2.0) 0.6 % (0.0-2.0) 1.1 % (0.0-2.0) Differential Total Cells Counted 100 Neutrophils % (Manual) 55 % (45-75) Lymphocytes % (Manual) 27 % (20-45) Monocytes % (Manual) 11 % (1-10) Eosinophils % (Manual) 7 % (0-3) Basophils % (Manual) 0 % (0-2) Band Neutrophils 0 % (0-8) Platelet Estimate Decreased Platelet Morphology Normal Hypochromasia 1+ Anisocytosis 2+ Sodium Level 139 MMOL/L (136-145) 139 MMOL/L (136-145) 137 MMOL/L (136-145) Potassium Level 4.1 MMOL/L (3.5-5.1) 4.0 MMOL/L (3.5-5.1) 3.5 MMOL/L (3.5-5.1) Chloride Level 107 MMOL/L (98-107) 106 MMOL/L (98-107) 105 MMOL/L (98-107) Carbon Dioxide Level 28 MMOL/L (21-32) 26 MMOL/L (21-32) 26 MMOL/L (21-32) Anion Gap 4 mmol/L (5-15) 7 mmol/L (5-15) 6 mmol/L (5-15) Blood Urea Nitrogen 8 mg/dL (7-18) 7 mg/dL (7-18) 7 mg/dL (7-18) Creatinine 1.0 MG/DL (0.55-1.30) 0.9 MG/DL (0.55-1.30) 0.9 MG/DL (0.55-1.30) Estimat Glomerular Filtration Rate > 60 mL/min (>60) > 60 mL/min (>60) > 60 mL/min (>60) Glucose Level 93 MG/DL (74-106) 74 MG/DL (74-106) 89 MG/DL (74-106) Calcium Level 8.2 MG/DL (8.5-10.1) 8.5 MG/DL (8.5-10.1) 8.5 MG/DL (8.5-10.1) Phosphorus Level 4.1 MG/DL (2.5-4.9) 3.9 MG/DL (2.5-4.9) Magnesium Level 1.2 MG/DL (1.8-2.4) 1.5 MG/DL (1.8-2.4) Total Bilirubin 1.3 MG/DL (0.2-1.0) 1.0 MG/DL (0.2-1.0) Direct Bilirubin 0.8 MG/DL (0.0-0.3) Aspartate Amino Transf (AST/SGOT) 91 U/L (15-37) 81 U/L (15-37) Alanine Aminotransferase (ALT/SGPT) 22 U/L (12-78) 19 U/L (12-78) Alkaline Phosphatase 131 U/L (46-116) 128 U/L (46-116) Total Protein 8.9 G/DL (6.4-8.2) 8.3 G/DL (6.4-8.2) Albumin 1.2 G/DL (3.4-5.0) 1.2 G/DL (3.4-5.0) Globulin 7.7 g/dL 7.1 g/dL Albumin/Globulin Ratio 0.2 (1.0-2.7) 0.2 (1.0-2.7) Height (Feet): 5 Height (Inches): 8.00 Weight (Pounds): 152 Objective Physical Exam: Vitals: reviewed General Appearance: NAD, disoriented, restraints+ HEENT: normocephalic, atraumatic Neck: non-tender, normal alignment Respiratory/Chest: normal breath sounds bilaterally Cardiovascular/Chest: normal peripheral pulses, normal rate Abdomen: normal bowel sounds, soft, nontender +++ ascites Avery Guo MD Aug 05, 2019 09:43
--- NOTE | 2019-08-05 10:32 | NUR ---
SWALLOW/SPEECH THERAPY NOTE: SWALLOW STATUS: TOO LETHARGIC FOR PO TRIALS BUT LUNGS CLEAR ON CURRENT DIET/LIQUIDS. PATIENT NOT VERY ALERT PER RN. GETS SOME SEDATING MEDS THAT MAY AFFECT ALERTNESS. ANNE RN NOTED HE WOULD SOMETIMES POCKET CRUSHED MEDS WITH APPLESAUCE IF LESS ALERT AND COUGH AFTER MEAL (? WHICH CONSISTENCY). PATIENT IS ON [facility] SOFT FINELY CHOPPED AND THIN LIQUID DIET WITH GOOD INTAKE. ON THE LIST FOR A MOD BARIUM SWALLOW BUT UNABLE TO CLEAR DUE TO SCHDULE CONFLICTS. GOALS MET FOR STAFF EDUCATED/TRAINED IN POSTED ASPIRATION PRECAUTIONS. PLAN: CONTINUE WITH PLAN OF CARE IN SWALLOW EVAL REPORT
--- NOTE | 2019-08-05 11:18 | NUR ---
NURSE NOTES: Bladder scan done per order, 400cc of urin. striaght cath pt , removed 380 cc of urine, yellow and clear.
--- NOTE | 2019-08-05 11:24 | Pulmonology Progress Note ---
Assessment/Plan Problems: (1) End stage liver disease (2) Coagulopathy (3) Hepatic encephalopathy Assessment/Plan no new complains pt is on restrains increase dose of seroquel, until pt is comfortable. symptomatic treatment Medical application in process. [facility] informed [facility]. awaiting placement. d/c planning in progress Subjective Interval Events: palliative care note Allergies: Coded Allergies: No Known Allergies (Unverified , 07/03/19) Objective Last 24 Hour Vital Signs Date Time Temp Pulse Resp B/P (MAP) Pulse Ox O2 Delivery O2 Flow Rate FiO2 08/05/19 09:00 Room Air 08/05/19 08:00 98.1 98 20 132/80 (97) 99 08/05/19 04:00 98.1 100 20 133/84 (100) 08/05/19 00:00 98.4 106 18 127/83 (98) 08/04/19 21:43 Room Air 08/04/19 20:00 98.4 104 20 111/77 (88) 08/04/19 16:00 97.2 99 22 113/79 (90) 98 08/04/19 12:00 96.8 87 20 113/74 (87) 95 Intake and Output 08/04/19 08/05/19 18:59 06:59 Intake Total 400 ml Balance 400 ml IV Total 400 ml Bladder Scan Volume Amount 173 Objective pt has restrains again, General Appearance: WD/WN HEENT: normocephalic, atraumatic Respiratory/Chest: chest wall non-tender, lungs clear Breasts: no masses Cardiovascular: normal peripheral pulses Abdomen: normal bowel sounds, soft, non tender Genitourinary: swollen Extremities: no clubbing Laboratory Tests 08/05/19 06:00: White Blood Count 8.8, Red Blood Count 2.80L, Hemoglobin 8.0L, Hematocrit 26.0L , Mean Corpuscular Volume 93, Mean Corpuscular Hemoglobin 28.7, Mean Corpuscular Hemoglobin Concent 30.9L, Red Cell Distribution Width 21.1H, Platelet Count 152, Mean Platelet Volume 6.0L, Neutrophils (%) (Auto) 57.3, Lymphocytes (%) (Auto) 24.0, Monocytes (%) (Auto) 11.4H, Eosinophils (%) (Auto) 6.3H, Basophils (%) (Auto) 1.1, Sodium Level 137, Potassium Level 3.5, Chloride Level 105, Carbon Dioxide Level 26, Anion Gap 6, Blood Urea Nitrogen 7, Creatinine 0.9, Estimat Glomerular Filtration Rate > 60, Glucose Level 89, Calcium Level 8.5, Phosphorus Level 3.9, Magnesium Level 1.5L, Total Bilirubin 1.0, Aspartate Amino Transf (AST/SGOT) 81H, Alanine Aminotransferase (ALT/SGPT) 19, Alkaline Phosphatase 128H, Total Protein 8.3H, Albumin 1.2L, Globulin 7.1, Albumin/Globulin Ratio 0.2L Current Medications Medications (Trade) Dose Ordered Sig/Tanja Route PRN Reason Start Time Stop Time Status Last Admin Dose Admin Folic Acid (Folate) 1 mg DAILY ORAL 07/31/19 09:00 08/30/19 08:59 08/05/19 08:59 Furosemide (Lasix) 20 mg DAILY ORAL 08/01/19 09:00 08/31/19 08:59 08/05/19 08:59 Lactulose (Cephulac) 20 gm THREE TIMES A DAY ORAL 08/04/19 13:00 08/19/19 16:59 08/05/19 08:59 Lorazepam (Ativan) 2 mg EVERY 4 HOURS PRN ORAL For Anxiety 08/02/19 22:00 08/09/19 21:59 08/03/19 08:10 Magnesium Oxide (Mag-Ox 400mg) 400 mg THREE TIMES A DAY ORAL 07/26/19 13:00 08/25/19 12:59 08/05/19 08:59 Magnesium Sulfate 100 ml @ 100 mls/hr Q1H IVPB 08/05/19 11:00 08/05/19 13:59 08/05/19 11:17 Mirtazapine (Remeron) 15 mg BEDTIME ORAL 08/03/19 21:00 09/02/19 20:59 08/04/19 20:33 Pantoprazole (Protonix) 40 mg EVERY 12 HOURS ORAL 07/26/19 21:00 08/25/19 20:59 08/05/19 08:59 Potassium Chloride (K-Dur) 40 meq DAILY ORAL 07/20/19 09:00 08/15/19 08:59 08/05/19 08:59 Quetiapine Fumarate (SEROquel) 25 mg TID ORAL 08/03/19 09:00 09/02/19 08:59 08/05/19 08:59 Spironolactone (Aldactone) 50 mg DAILY ORAL 08/01/19 09:00 08/31/19 08:59 08/05/19 08:58 Thiamine HCl (Vitamin B1) 100 mg DAILY ORAL 07/31/19 09:00 08/30/19 08:59 08/05/19 08:59 Ronnell Card MD Aug 05, 2019 11:24
[2019-08-05 12:00] VITALS: BP 136/77
--- NOTE | 2019-08-05 13:04 | NUR ---
P.T Weekly Progress Notes: Pt demonstrated demonstrated slow progress during course of 1 wk P.T session. Progress is limited by current medical condition and cognitive impairment resulting to poor carry over of safety instructions understanding of his current condition. Pt currently require constant redirections in performing/completing ADL/functional mobility tasks. Assistance fluctuates from CGA-MIN A X 1 for bed mobility and transfer activities depending on level of cooperation and level of alertness. Pt able to ambulate and tolerate average distance of 150 ft using the FWW with MIN A X 1 with constant verbal and manual cues needed for redirections. Will continue with POC with progression of activities. P.T strongly recommend that patient should be OOB i.e up in chair especially during meals with constant nursing supervision VS being in bed and in restraint at all times to facilitate increased activity tolerance and to facilitate increase transfers and gait/ambulation ability and safety.
--- NOTE | 2019-08-05 16:39 | NUR ---
NURSE NOTES: pt unable to sign the consent, pts confused. will continue to monitor.
--- NOTE | 2019-08-05 16:46 | NUR ---
NURSE NOTES: Bladder scan done, 181 cc of urine. will continue to monitor.
[2019-08-05 16:50] VITALS: BP 119/77
--- NOTE | 2019-08-05 18:57 | General Progress Note ---
Assessment/Plan Status: stable, unchanged Assessment/Plan: 48-year-old male with past medical history of ETOH abuse presented found down. Overall improving s/p paracentesis 07/16/19 #Encephalopathy likely multifactorial including hepatic encephalopathy ( elevated ammonia), as well as sepsis with bacteremia due to MSSA. #Sepsis secondary to bacteremia due to MSSA -s/p vancomycin and Zosyn (07/06), now cefazolin per ID recs. Keflex for 2 weeks started 07/21/19,finished on 08/04 -Repeat blood cultures are negative -Infectious disease consult, appreciate recs -Palliative care consult appreciated. Medical application in process. [facility] informed [facility] accepted #Hypernatremia- resolved encourage PO intake # Lice - primerin treatment - Ordered to clip hair as persistent lice noted despite 2 shampoo treatment #Liver cirrhosis secondary to EtOH # ETOH withdrawal. Discontinue Libirum - DF 31 -MELD 15 on admission -Abdominal ultrasound reviewed -Status post paracentesis 07/05/2019 with removal of 8 L. -Albumin for BP support as needed -Supportive care - lactulose GA - Repeat paracentesis 07/16. Recheck INR, VIT K and ffp as needed -Add Furosemide 20mg and aldactone 50mg daily. Check chemistry prn #Anemia, likely might multifactorial including acute blood loss anemia, anemia of chronic disease -Hematology consult, appreciate recs -Iron panel: Reviewed -Low folate: Replace -B12 within normal limits above 800 -GI consult, appreciate recs. HOLD OFF NGT for now due to risk with possible esophageal varices. PENDING EGD per GI decision. Patient is gradually waking up and eating is still a problem. MONITOR closely as he is now 9 days into the Hospital stay. #Thrombocytopenia -due to cirrhosis- stable #Substance abuse -Nodular liver in ultrasound suggestive of cirrhosis -Check hepatitis and HIV: hiv neg, hepatitis panel negative -Social work Consult - Psyche consult, appreciate recs #Hypokalemia Replace as needed, will replace today 40meq by mouth # Hypomagnesemia Replace today # Hypocalcemia - replace as needed #Dysphagia -Etiology due to agitation, likely due underlying hepatic encephalopathy vs side effect of Ativan #full code Per PT, out of chair to bed with sitter # Disposition SW and CM follow up needed. Homeless. hospice. palliative care consult. [facility] The time of my note may not reflect the time of my patient encounter. I spent 15 minutes on this encounter, greater than 50 percent in counseling and care coordination Subjective Date patient seen: Aug 05, 2019 ROS Limited/Unobtainable: Yes Allergies: Coded Allergies: No Known Allergies (Unverified , 07/03/19) Subjective No acute events mental status waxing and waning needs re-orientation and engagement he is redirectable abdomen getting more distended may need repeat paracentesis Objective Last 24 Hour Vital Signs Date Time Temp Pulse Resp B/P (MAP) Pulse Ox O2 Delivery O2 Flow Rate FiO2 08/05/19 16:50 98.3 105 20 119/77 (91) 99 08/05/19 12:00 98.3 94 20 136/77 (96) 99 08/05/19 09:00 Room Air 08/05/19 08:00 98.1 98 20 132/80 (97) 99 08/05/19 04:00 98.1 100 20 133/84 (100) 08/05/19 00:00 98.4 106 18 127/83 (98) 08/04/19 21:43 Room Air 08/04/19 20:00 98.4 104 20 111/77 (88) Intake and Output 08/04/19 08/05/19 19:00 07:00 Intake Total 400 ml Balance 400 ml IV Total 400 ml Bladder Scan Volume Amount 173 Laboratory Tests 08/05/19 06:00: White Blood Count 8.8, Red Blood Count 2.80L, Hemoglobin 8.0L, Hematocrit 26.0L , Mean Corpuscular Volume 93, Mean Corpuscular Hemoglobin 28.7, Mean Corpuscular Hemoglobin Concent 30.9L, Red Cell Distribution Width 21.1H, Platelet Count 152, Mean Platelet Volume 6.0L, Neutrophils (%) (Auto) 57.3, Lymphocytes (%) (Auto) 24.0, Monocytes (%) (Auto) 11.4H, Eosinophils (%) (Auto) 6.3H, Basophils (%) (Auto) 1.1, Sodium Level 137, Potassium Level 3.5, Chloride Level 105, Carbon Dioxide Level 26, Anion Gap 6, Blood Urea Nitrogen 7, Creatinine 0.9, Estimat Glomerular Filtration Rate > 60, Glucose Level 89, Calcium Level 8.5, Phosphorus Level 3.9, Magnesium Level 1.5L, Total Bilirubin 1.0, Aspartate Amino Transf (AST/SGOT) 81H, Alanine Aminotransferase (ALT/SGPT) 19, Alkaline Phosphatase 128H, Total Protein 8.3H, Albumin 1.2L, Globulin 7.1, Albumin/Globulin Ratio 0.2L Height (Feet): 5 Height (Inches): 8.00 Weight (Pounds): 152 Objective General Appearance: moderate agitation EENT: PERRL/EOMI, normal ENT inspection Cardiovascular: normal rate Respiratory/Chest: lungs clear Abdomen: distended, hepatomegaly Edema: trace edema Neurologic: retirement specialist II-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 Aug 05, 2019 18:57
--- NOTE | 2019-08-05 19:14 | NUR ---
HAND-OFF: Report given to Antoni ROCHA.
--- NOTE | 2019-08-05 19:30 | NUR ---
NURSE NOTES: Patient awake, trying to get out of bed. With bilateral soft wrist restraints. Pulses are present, Normal skin color. Safety measures done. Instructed to use call light for assistance, in reach. Bed in lowest, lock engaged and alarm on. Will continue to monitor.
[2019-08-05 20:00] VITALS: BP 133/90
[2019-08-05] MEDS: LORazepam 1mg tab ORAL PRN (20:11)
[2019-08-06] VITALS: BP 122/79
[2019-08-06 04:00] VITALS: BP 114/76
--- NOTE | 2019-08-06 06:09 | Hematology/Onc Progress Note ---
Assessment/Plan Assessment/Plan ASSESSMENT AND RECS # Anemia of iron deficiency in addition to suppression from etoh abuse and cirrhosis of liver, ETOH --> Anemia workup has been ordered, rule out gi bleed --> aid noted --> No evidence of hemolysis is noted, peripheral smear has been reviewed. --> Hgb goal >7. Transfuse prn. --> Hgb trend: 4.2-->7.1-->7.6 --> 7.6-->7.7-->8.9-->9.1-->8.9-->8.5->8.8-->8.9- ->9.2-->7.6-->7.5->7.4-->8 --> IRON IV 200mg ordered x 1dose (given) --> Medications have been reviewed --> stool ob negative # Thrombocytopenia - secondary to liver cirrhosis and etoh use --> Hep panel and HIV - both negative --> US abd to evaluate for cirrhosis and hsm ordered - Hepatic surface nodularity, suggestive of cirrhosis. Ascites --> Peripheral smear ordered to evaluate for blasts /schistocytes and none significant noted --> abx and other meds have been reviewed --> ok for ppx if plt >50k w/ either heparin or lovenox --> Transfuse if Plt < 20k and fever, or if Plt < 10k without fever --> plt trend 90-->92k-->82-->92k-->85k-->104k-->122k-->126k-->109k-->112k-->123 -->150-->152 # Coagulopathy due to liver cirrhosis secondary to Etoh --> GI is following, appreciate recs --> Abdominal us reviewed --> Supportive care --> lactulose prophylactic --> vit K on prn basis 07/15 # Substance abuse --> psych eval # Hypokalemia --> Replace, continue to monitor # Hypocalcemia --> replete Ca++ prn # Cirrhosis of the liver --> appears chronic # Dvt ppx with scds --> may consider lovenox The timing of this note does not necessarily reflect the time of the patient was seen. GREATLY APPRECIATE CONSULTATION. Subjective HEENT: Denies: no symptoms, eye pain, blurred vision, tearing, double vision, ear pain, ear discharge, nose pain, nose congestion, throat pain, throat swelling, mouth pain, mouth swelling, other Cardiovascular: Denies: no symptoms, chest pain, edema, irregular heart rate, lightheadedness, palpitations, syncope, other Respiratory: Denies: no symptoms, cough, shortness of breath, SOB with excertion, SOB at rest, sputum, wheezing, other Gastrointestinal/Abdominal: Denies: no symptoms, abdomen distended, abdominal pain, black stools, tarry stools, blood in stool, constipated, diarrhea, difficulty swallowing, nausea, poor appetite, poor fluid intake, rectal bleeding , vomiting, other Genitourinary: Denies: no symptoms, burning, discharge, frequency, flank pain, hematuria, incontinence, pain, urgency, other Neurologic/Psychiatric: Denies: no symptoms, anxiety, depressed, emotional problems, headache, numbness, paresthesia, pre-existing deficit, seizure, tingling, tremors, weakness, other Endocrine: Denies: no symptoms, excessive sweating, flushing, intolerance to cold, intolerance to heat, increased hunger, increased thirst, increased urine, unexplained weight gain, unexplained weight loss, other Hematologic/Lymphatic: Denies: no symptoms, anemia, easy bleeding, easy bruising, adenopathy, other Allergies: Coded Allergies: No Known Allergies (Unverified , 07/03/19) Subjective 07/05: no fevers, chills or night sweats noted, on iv iron has been started, on benzo 07/07: extremely agitated overnight, climbin out of bed, on cristina taper, h/h low 07/08: remains on abx, no f/c, no bleeding is noted, no changes 07/09: paracentesis negative for malignant cells, cxr and labs reviewed 07/10: no acute distress, still drowsy, has been attempting to get out of bed 07/11: transferred [facility], stool ob negative, h/h stable 07/12: imaging reviewed, on abx, us paracentesis, no distress 07/13: remains on librium, plt 85, hgb 8.5, no f/c, no night sweats 07/15: no bleeding, pt/ptt elevated, given vit K, no f/c, no chills noted 07/16: for repeat paracentesis, no f/c, no bleeding 07/17: us paracentesis, vs stable, no f/c, denies any pain, on abx, med reviewed 07/18: remains on ancef for now 14d as per id, no bleeding reported, no f/c 07/19: on abx, no f/c, vs stable, no sob, no acute distress, imaging reviewed 07/20: electrolytes repleted, no f/c, confused still 07/22: no events, no bleeding, labs have been reviewed, remains confused 07/23: no f/c, confused, on restraints, denies pain or comfort, on cephalexin 07/24: remains somewhat confused, on restraints, no bleeding, chills 07/25: no f/c, on restraints, seizure precaution, on cephalexin, no distress 07/26: vs stable, no f/c, agitated, refusing care/tx, hgb 7.6 repeat cbc tomorrow am 07/29: no events, no bleeding, no f/c, labs noted++ wrist restraints 07/30: getting out of restraints, no f/c, no bleeding noted 07/31: no events to report, no f/c, in restraints 08/02: remains disoriented, bilat wrist restraints, hgb 7.4, repeat cbc tomorrow 08/03: no bleeding, no night sweats, no f/c 08/05: no events, no bleeding, no night sweats, ams 08/06: trying to get out of bed, no f/c, no bleeding noted Objective Objective Current Medications Medications (Trade) Dose Ordered Sig/Tanja Route PRN Reason Start Time Stop Time Status Last Admin Dose Admin Folic Acid (Folate) 1 mg DAILY ORAL 07/31/19 09:00 08/30/19 08:59 08/05/19 08:59 Furosemide (Lasix) 20 mg DAILY ORAL 08/01/19 09:00 08/31/19 08:59 08/05/19 08:59 Lactulose (Cephulac) 20 gm THREE TIMES A DAY ORAL 08/04/19 13:00 08/19/19 16:59 08/05/19 12:57 Lorazepam (Ativan) 2 mg EVERY 4 HOURS PRN ORAL For Anxiety 08/02/19 22:00 08/09/19 21:59 08/05/19 20:11 Magnesium Oxide (Mag-Ox 400mg) 400 mg THREE TIMES A DAY ORAL 07/26/19 13:00 08/25/19 12:59 08/05/19 12:56 Mirtazapine (Remeron) 15 mg BEDTIME ORAL 08/03/19 21:00 09/02/19 20:59 08/05/19 20:11 Pantoprazole (Protonix) 40 mg EVERY 12 HOURS ORAL 07/26/19 21:00 08/25/19 20:59 08/05/19 20:11 Potassium Chloride (K-Dur) 40 meq DAILY ORAL 07/20/19 09:00 08/15/19 08:59 08/05/19 08:59 Quetiapine Fumarate (SEROquel) 50 mg TID ORAL 08/05/19 13:00 09/02/19 08:59 08/05/19 12:56 Spironolactone (Aldactone) 50 mg DAILY ORAL 08/01/19 09:00 08/31/19 08:59 08/05/19 08:58 Thiamine HCl (Vitamin B1) 100 mg DAILY ORAL 07/31/19 09:00 08/30/19 08:59 08/05/19 08:59 Last 24 Hour Vital Signs Date Time Temp Pulse Resp B/P (MAP) Pulse Ox O2 Delivery O2 Flow Rate FiO2 08/06/19 00:00 97.9 102 18 122/79 (93) 97 08/05/19 21:00 Room Air 08/05/19 20:00 98.4 100 18 133/90 (104) 97 08/05/19 16:50 98.3 105 20 119/77 (91) 99 08/05/19 12:00 98.3 94 20 136/77 (96) 99 08/05/19 09:00 Room Air 08/05/19 08:00 98.1 98 20 132/80 (97) 99 08/05/19 04:00 98.1 100 20 133/84 (100) 08/05/19 00:00 98.4 106 18 127/83 (98) 08/04/19 21:43 Room Air 08/04/19 20:00 98.4 104 20 111/77 (88) 08/04/19 16:00 97.2 99 22 113/79 (90) 98 08/04/19 12:00 96.8 87 20 113/74 (87) 95 08/04/19 09:00 Room Air 08/04/19 08:00 97.2 93 20 119/73 (88) 93 Intake and Output 08/05/19 08/06/19 19:00 07:00 Intake Total 1260 ml Output Total 350 ml Balance 1260 ml -350 ml Intake Oral 960 ml IV Total 300 ml Post Void Residual 350 ml Bladder Scan Volume Amount 391 # Voids 5 Labs Test 08/04/19 05:05 08/05/19 06:00 White Blood Count 9.1 K/UL (4.8-10.8) 8.8 K/UL (4.8-10.8) Red Blood Count 3.12 M/UL (4.70-6.10) 2.80 M/UL (4.70-6.10) Hemoglobin 9.0 G/DL (14.2-18.0) 8.0 G/DL (14.2-18.0) Hematocrit 29.2 % (42.0-52.0) 26.0 % (42.0-52.0) Mean Corpuscular Volume 93 FL (80-99) 93 FL (80-99) Mean Corpuscular Hemoglobin 28.8 PG (27.0-31.0) 28.7 PG (27.0-31.0) Mean Corpuscular Hemoglobin Concent 30.8 G/DL (32.0-36.0) 30.9 G/DL (32.0-36.0) Red Cell Distribution Width 20.7 % (11.6-14.8) 21.1 % (11.6-14.8) Platelet Count 132 K/UL (150-450) 152 K/UL (150-450) Mean Platelet Volume 5.3 FL (6.5-10.1) 6.0 FL (6.5-10.1) Neutrophils (%) (Auto) 65.8 % (45.0-75.0) 57.3 % (45.0-75.0) Lymphocytes (%) (Auto) 20.7 % (20.0-45.0) 24.0 % (20.0-45.0) Monocytes (%) (Auto) 9.6 % (1.0-10.0) 11.4 % (1.0-10.0) Eosinophils (%) (Auto) 3.3 % (0.0-3.0) 6.3 % (0.0-3.0) Basophils (%) (Auto) 0.6 % (0.0-2.0) 1.1 % (0.0-2.0) Sodium Level 139 MMOL/L (136-145) 137 MMOL/L (136-145) Potassium Level 4.0 MMOL/L (3.5-5.1) 3.5 MMOL/L (3.5-5.1) Chloride Level 106 MMOL/L (98-107) 105 MMOL/L (98-107) Carbon Dioxide Level 26 MMOL/L (21-32) 26 MMOL/L (21-32) Anion Gap 7 mmol/L (5-15) 6 mmol/L (5-15) Blood Urea Nitrogen 7 mg/dL (7-18) 7 mg/dL (7-18) Creatinine 0.9 MG/DL (0.55-1.30) 0.9 MG/DL (0.55-1.30) Estimat Glomerular Filtration Rate > 60 mL/min (>60) > 60 mL/min (>60) Glucose Level 74 MG/DL (74-106) 89 MG/DL (74-106) Calcium Level 8.5 MG/DL (8.5-10.1) 8.5 MG/DL (8.5-10.1) Phosphorus Level 4.1 MG/DL (2.5-4.9) 3.9 MG/DL (2.5-4.9) Magnesium Level 1.2 MG/DL (1.8-2.4) 1.5 MG/DL (1.8-2.4) Total Bilirubin 1.3 MG/DL (0.2-1.0) 1.0 MG/DL (0.2-1.0) Direct Bilirubin 0.8 MG/DL (0.0-0.3) Aspartate Amino Transf (AST/SGOT) 91 U/L (15-37) 81 U/L (15-37) Alanine Aminotransferase (ALT/SGPT) 22 U/L (12-78) 19 U/L (12-78) Alkaline Phosphatase 131 U/L (46-116) 128 U/L (46-116) Total Protein 8.9 G/DL (6.4-8.2) 8.3 G/DL (6.4-8.2) Albumin 1.2 G/DL (3.4-5.0) 1.2 G/DL (3.4-5.0) Globulin 7.7 g/dL 7.1 g/dL Albumin/Globulin Ratio 0.2 (1.0-2.7) 0.2 (1.0-2.7) Height (Feet): 5 Height (Inches): 8.00 Weight (Pounds): 152 Objective Physical Exam: Vitals: reviewed General Appearance: NAD, disoriented, restraints+ HEENT: normocephalic, atraumatic Neck: non-tender, normal alignment Respiratory/Chest: normal breath sounds bilaterally Cardiovascular/Chest: normal peripheral pulses, normal rate Abdomen: normal bowel sounds, soft, nontender +++ ascites Avery Guo MD Aug 06, 2019 06:09
--- NOTE | 2019-08-06 06:21 | NUR ---
NURSE NOTES: Bladder scan done @ 11PM with 391, straight cath done with 500 output. @5am bladder scan showed 450, straight cath done again as ordered with 100 out, patient pulled out catheter when RN turned back. Rescan bladder with 249ml. Charge nurse made aware.
--- NOTE | 2019-08-06 07:43 | NUR ---
HAND-OFF: Report given to JOSEFINA Santizo.
[2019-08-06 08:00] VITALS: BP 126/78
--- NOTE | 2019-08-06 08:21 | NUR ---
NURSE NOTES: Patient is alert and awake. Patient is on bilateral soft wrist restraints. HOB is elevated. Bed is locked, bed alarm is on. Patient is near nurse's station. Will continue to monitor.
[2019-08-06] MEDS: Thiamine 100mg tab ORAL SCH (09:09)
[2019-08-06] MEDS: Spironolactone 50mg tab ORAL SCH (09:09)
[2019-08-06] MEDS: Magnesium Oxide 400mg tab ORAL SCH ×3 (09:09→17:14)
[2019-08-06] MEDS: Lactulose 20gm/30ml UDC ORAL SCH ×3 (09:10→17:13)
--- NOTE | 2019-08-06 11:50 | Pulmonology Progress Note ---
Assessment/Plan Problems: (1) End stage liver disease (2) Coagulopathy (3) Hepatic encephalopathy Assessment/Plan no new complains off restrains increase dose of seroquel, pt is comfortable. symptomatic treatment Medical application in process. [facility] informed and accepted. awaiting placement. d/c planning in progress Subjective ROS Limited/Unobtainable: Yes Constitutional: Reports: no symptoms HEENT: Repors: no symptoms Allergies: Coded Allergies: No Known Allergies (Unverified , 07/03/19) Objective Last 24 Hour Vital Signs Date Time Temp Pulse Resp B/P (MAP) Pulse Ox O2 Delivery O2 Flow Rate FiO2 08/06/19 08:45 Room Air 08/06/19 08:00 97.0 70 20 126/78 (94) 98 08/06/19 04:00 98.2 103 18 114/76 (89) 98 08/06/19 00:00 97.9 102 18 122/79 (93) 97 08/05/19 21:00 Room Air 08/05/19 20:00 98.4 100 18 133/90 (104) 97 08/05/19 16:50 98.3 105 20 119/77 (91) 99 08/05/19 12:00 98.3 94 20 136/77 (96) 99 Intake and Output 08/05/19 08/06/19 19:00 07:00 Intake Total 1260 ml Output Total 1025 ml Balance 1260 ml -1025 ml Intake Oral 960 ml IV Total 300 ml Output Urine Total 575 ml Post Void Residual 450 ml Bladder Scan Volume Amount 391 450 249 # Voids 5 Objective pt has restrains again, General Appearance: WD/WN HEENT: normocephalic, atraumatic Respiratory/Chest: chest wall non-tender, lungs clear Breasts: no masses Cardiovascular: normal peripheral pulses Abdomen: normal bowel sounds, soft, non tender Genitourinary: swollen Extremities: no clubbing Current Medications Medications (Trade) Dose Ordered Sig/Tanja Route PRN Reason Start Time Stop Time Status Last Admin Dose Admin Folic Acid (Folate) 1 mg DAILY ORAL 07/31/19 09:00 08/30/19 08:59 08/06/19 09:09 Furosemide (Lasix) 20 mg DAILY ORAL 08/01/19 09:00 08/31/19 08:59 08/06/19 09:09 Lactulose (Cephulac) 20 gm THREE TIMES A DAY ORAL 08/04/19 13:00 08/19/19 16:59 08/06/19 09:10 Lorazepam (Ativan) 2 mg EVERY 4 HOURS PRN ORAL For Anxiety 08/02/19 22:00 08/09/19 21:59 08/05/19 20:11 Magnesium Oxide (Mag-Ox 400mg) 400 mg THREE TIMES A DAY ORAL 07/26/19 13:00 08/25/19 12:59 08/06/19 09:09 Mirtazapine (Remeron) 15 mg BEDTIME ORAL 08/03/19 21:00 09/02/19 20:59 08/05/19 20:11 Pantoprazole (Protonix) 40 mg EVERY 12 HOURS ORAL 07/26/19 21:00 08/25/19 20:59 08/06/19 09:09 Potassium Chloride (K-Dur) 40 meq DAILY ORAL 07/20/19 09:00 08/15/19 08:59 08/06/19 09:09 Quetiapine Fumarate (SEROquel) 50 mg TID ORAL 08/05/19 13:00 09/02/19 08:59 08/06/19 09:08 Spironolactone (Aldactone) 50 mg DAILY ORAL 08/01/19 09:00 08/31/19 08:59 08/06/19 09:09 Thiamine HCl (Vitamin B1) 100 mg DAILY ORAL 07/31/19 09:00 08/30/19 08:59 08/06/19 09:09 Ronnell Card MD Aug 06, 2019 11:50
[2019-08-06 12:00] VITALS: BP 129/80
--- NOTE | 2019-08-06 12:35 | General Progress Note ---
Progress Note Progress Note Patient unable to consent for himself due to mental status, hepatic encephalopathy and needs repeat paracentesis. This document will serve as consent for this procedure. Please refer to the chart for 2 physician consent document for this urgent procedure. Sumeet Muñoz M.D. Aug 06, 2019 12:35
--- NOTE | 2019-08-06 12:37 | General Progress Note ---
Assessment/Plan Status: stable, unchanged Assessment/Plan: 48-year-old male with past medical history of ETOH abuse presented found down. Overall improving s/p paracentesis 07/16/19 #Encephalopathy likely multifactorial including hepatic encephalopathy ( elevated ammonia), as well as sepsis with bacteremia due to MSSA. #Sepsis secondary to bacteremia due to MSSA -s/p vancomycin and Zosyn (07/06), now cefazolin per ID recs. Keflex for 2 weeks started 07/21/19,finished on 08/04 -Repeat blood cultures are negative -Infectious disease consult, appreciate recs -Palliative care consult appreciated. Medical application in process. [facility] hospice informed and accepted #Hypernatremia- resolved encourage PO intake # Lice - primerin treatment - Ordered to clip hair as persistent lice noted despite 2 shampoo treatment #Liver cirrhosis secondary to EtOH # ETOH withdrawal. Discontinue Libirum - DF 31 -MELD 15 on admission -Abdominal ultrasound reviewed -Status post paracentesis 07/05/2019 with removal of 8 L. -Albumin for BP support as needed -Supportive care - lactulose MO - Repeat paracentesis 07/16. Recheck INR, VIT K and ffp as needed -Add Furosemide 20mg and aldactone 50mg daily. Check chemistry prn #Anemia, likely might multifactorial including acute blood loss anemia, anemia of chronic disease -Hematology consult, appreciate recs -Iron panel: Reviewed -Low folate: Replace -B12 within normal limits above 800 #Thrombocytopenia -due to cirrhosis- stable #Substance abuse -Nodular liver in ultrasound suggestive of cirrhosis -Check hepatitis and HIV: hiv neg, hepatitis panel negative -Social work Consult - Psyche consult, appreciate recs #Hypokalemia Replace as needed # Hypomagnesemia Replace as needed # Hypocalcemia - replace as needed #Dysphagia -Etiology due to agitation, likely due underlying hepatic encephalopathy vs side effect of Ativan # Disposition SW and CM follow up needed. Homeless. hospice. palliative care consult. [facility] The time of my note may not reflect the time of my patient encounter. I spent 15 minutes on this encounter, greater than 50 percent in counseling and care coordination Subjective Date patient seen: Aug 06, 2019 ROS Limited/Unobtainable: Yes Allergies: Coded Allergies: No Known Allergies (Unverified , 07/03/19) Subjective No acute events mental status waxing and waning needs re-orientation and engagement abdomen getting more distended planning repeat paracentesis Objective Last 24 Hour Vital Signs Date Time Temp Pulse Resp B/P (MAP) Pulse Ox O2 Delivery O2 Flow Rate FiO2 08/06/19 12:00 97.9 68 19 129/80 (96) 99 08/06/19 08:45 Room Air 08/06/19 08:00 97.0 70 20 126/78 (94) 98 08/06/19 04:00 98.2 103 18 114/76 (89) 98 08/06/19 00:00 97.9 102 18 122/79 (93) 97 08/05/19 21:00 Room Air 08/05/19 20:00 98.4 100 18 133/90 (104) 97 08/05/19 16:50 98.3 105 20 119/77 (91) 99 Intake and Output 08/05/19 08/06/19 19:00 07:00 Intake Total 1260 ml Output Total 1025 ml Balance 1260 ml -1025 ml Intake Oral 960 ml IV Total 300 ml Output Urine Total 575 ml Post Void Residual 450 ml Bladder Scan Volume Amount 391 450 249 # Voids 5 Height (Feet): 5 Height (Inches): 8.00 Weight (Pounds): 152 Objective General Appearance: moderate agitation EENT: PERRL/EOMI, normal ENT inspection Cardiovascular: normal rate Respiratory/Chest: lungs clear Abdomen: distended, hepatomegaly Edema: trace edema Neurologic: clerical support II-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 Aug 06, 2019 12:37
--- NOTE | 2019-08-06 13:08 | NUR ---
NURSE NOTES: Bladder scan 311. Will continue to monitor.
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
[2019-08-06 16:00] VITALS: BP 116/80
--- NOTE | 2019-08-06 19:35 | NUR ---
NURSE NOTES: Received a report from Darlyn Witt Rn. Pt is in stable condition. Confused. No c/o pain/discomfort. IV site is patent and intact. Pt has B soft wrist restraints on. Bed in lowest position. Bed alarm is on. Call light within reach. Will continue to monitor.
--- NOTE | 2019-08-06 19:53 | NUR ---
NURSE NOTES: bladder scanned 312ml. In and out catheterization done. 202ml remaining.
--- NOTE | 2019-08-06 19:54 | NUR ---
HAND-OFF: Report given to Darlyn Mabry RN.
[2019-08-06 20:00] VITALS: BP 157/89
--- NOTE | 2019-08-06 20:09 | NUR ---
CASE MANAGEMENT: REVIEW SI: ETHANOL INTOXICATION . ASCITES . SEPSIS PARACENTESIS 07/16 T 97.3 HR 103 RR 18 BP 116/80 SAT 100% ROOM AIR IS: LACTULOSE PO TID REMERON PO QHS ATIVAN PO Q4HR PRN LASIX PO QD ALDACTONE PO QD THIAMINE PO QD FOLATE ACID PO QD PROTONIX PO Q12HR MAS OX 400 MG PO QID K-DUR PO QD BLADDER SCAN / IN & OUT CATH BILATERAL WRIST RESTRAINTS MED/SURG STATUS DCP: PATIENT REPORTS HOMELESSNESS PLAN: PARACENTESIS
[2019-08-07] VITALS: BP 134/84
[2019-08-07 04:00] VITALS: BP 134/85
--- NOTE | 2019-08-07 05:00 | NUR ---
NURSE NOTES: Bladder scanned the pt, it showed 297cc. Took out 150cc. Post void showed 420cc. Charge Nurse Anna made aware.
--- NOTE | 2019-08-07 07:46 | NUR ---
HAND-OFF: Report given to JOSEFINA Ulloa. Endorse to JOSEFINA Ulloa to follow up with the 2 physicians for the consent of the US Paracentesis.
[2019-08-07 08:00] VITALS: BP 110/71
--- NOTE | 2019-08-07 08:30 | Hematology/Onc Progress Note ---
Assessment/Plan Assessment/Plan ASSESSMENT AND RECS # Anemia of iron deficiency in addition to suppression from etoh abuse and cirrhosis of liver, ETOH --> Anemia workup has been ordered, rule out gi bleed --> aid noted --> No evidence of hemolysis is noted, peripheral smear has been reviewed. --> Hgb goal >7. Transfuse prn. --> Hgb trend: 4.2-->7.1-->7.6 --> 7.6-->7.7-->8.9-->9.1-->8.9-->8.5->8.8-->8.9- ->9.2-->7.6-->7.5->7.4-->8 --> IRON IV 200mg ordered x 1dose (given) --> Medications have been reviewed, on thiamine and folic acid --> stool ob negative # Thrombocytopenia - secondary to liver cirrhosis and etoh use --> Hep panel and HIV - both negative --> US abd to evaluate for cirrhosis and hsm ordered - Hepatic surface nodularity, suggestive of cirrhosis. Ascites --> Peripheral smear ordered to evaluate for blasts /schistocytes and none significant noted --> abx and other meds have been reviewed --> ok for ppx if plt >50k w/ either heparin or lovenox --> Transfuse if Plt < 20k and fever, or if Plt < 10k without fever --> plt trend 90-->92k-->82-->92k-->85k-->104k-->122k-->126k-->109k-->112k-->123 -->150-->152 # Coagulopathy due to liver cirrhosis secondary to Etoh --> GI is following, appreciate recs --> Abdominal us reviewed --> Supportive care --> lactulose prophylactic --> vit K on prn basis 07/15 # Substance abuse --> psych eval # Hypokalemia --> Replace, continue to monitor # Hypocalcemia --> replete Ca++ prn # Cirrhosis of the liver --> appears chronic # Dvt ppx with scds --> may consider lovenox The timing of this note does not necessarily reflect the time of the patient was seen. GREATLY APPRECIATE CONSULTATION. Subjective Allergies: Coded Allergies: No Known Allergies (Unverified , 07/03/19) Subjective 07/05: no fevers, chills or night sweats noted, on iv iron has been started, on benzo 07/07: extremely agitated overnight, climbin out of bed, on cristina taper, h/h low 07/08: remains on abx, no f/c, no bleeding is noted, no changes 07/09: paracentesis negative for malignant cells, cxr and labs reviewed 07/10: no acute distress, still drowsy, has been attempting to get out of bed 07/11: transferred [facility], stool ob negative, h/h stable 07/12: imaging reviewed, on abx, us paracentesis, no distress 07/13: remains on librium, plt 85, hgb 8.5, no f/c, no night sweats 07/15: no bleeding, pt/ptt elevated, given vit K, no f/c, no chills noted 07/16: for repeat paracentesis, no f/c, no bleeding 07/17: us paracentesis, vs stable, no f/c, denies any pain, on abx, med reviewed 07/18: remains on ancef for now 14d as per id, no bleeding reported, no f/c 07/19: on abx, no f/c, vs stable, no sob, no acute distress, imaging reviewed 07/20: electrolytes repleted, no f/c, confused still 07/22: no events, no bleeding, labs have been reviewed, remains confused 07/23: no f/c, confused, on restraints, denies pain or comfort, on cephalexin 07/24: remains somewhat confused, on restraints, no bleeding, chills 07/25: no f/c, on restraints, seizure precaution, on cephalexin, no distress 07/26: vs stable, no f/c, agitated, refusing care/tx, hgb 7.6 repeat cbc tomorrow am 07/29: no events, no bleeding, no f/c, labs noted++ wrist restraints 07/30: getting out of restraints, no f/c, no bleeding noted 07/31: no events to report, no f/c, in restraints 08/02: remains disoriented, bilat wrist restraints, hgb 7.4, repeat cbc tomorrow 08/03: no bleeding, no night sweats, no f/c 08/05: no events, no bleeding, no night sweats, ams 08/06: trying to get out of bed, no f/c, no bleeding noted 08/07: no overnight events, afebrile, no sob, paracentesis pending Objective Objective Current Medications Medications (Trade) Dose Ordered Sig/Tanja Route PRN Reason Start Time Stop Time Status Last Admin Dose Admin Folic Acid (Folate) 1 mg DAILY ORAL 07/31/19 09:00 08/30/19 08:59 08/06/19 09:09 Furosemide (Lasix) 20 mg DAILY ORAL 08/01/19 09:00 08/31/19 08:59 08/06/19 09:09 Lactulose (Cephulac) 20 gm THREE TIMES A DAY ORAL 08/04/19 13:00 08/19/19 16:59 08/06/19 09:10 Lorazepam (Ativan) 2 mg EVERY 4 HOURS PRN ORAL For Anxiety 08/02/19 22:00 08/09/19 21:59 08/05/19 20:11 Magnesium Oxide (Mag-Ox 400mg) 400 mg THREE TIMES A DAY ORAL 07/26/19 13:00 08/25/19 12:59 08/06/19 09:09 Mirtazapine (Remeron) 15 mg BEDTIME ORAL 08/03/19 21:00 09/02/19 20:59 08/06/19 21:25 Pantoprazole (Protonix) 40 mg EVERY 12 HOURS ORAL 07/26/19 21:00 08/25/19 20:59 08/06/19 21:25 Potassium Chloride (K-Dur) 40 meq DAILY ORAL 07/20/19 09:00 08/15/19 08:59 08/06/19 09:09 Quetiapine Fumarate (SEROquel) 50 mg TID ORAL 08/05/19 13:00 09/02/19 08:59 08/06/19 09:08 Spironolactone (Aldactone) 50 mg DAILY ORAL 08/01/19 09:00 08/31/19 08:59 08/06/19 09:09 Thiamine HCl (Vitamin B1) 100 mg DAILY ORAL 07/31/19 09:00 08/30/19 08:59 08/06/19 09:09 Last 24 Hour Vital Signs Date Time Temp Pulse Resp B/P (MAP) Pulse Ox O2 Delivery O2 Flow Rate FiO2 08/07/19 04:00 98.1 112 20 134/85 (101) 94 08/07/19 00:00 98.6 116 20 134/84 (101) 96 08/06/19 21:00 Room Air 08/06/19 20:00 98.0 100 17 157/89 (111) 96 08/06/19 16:00 97.3 103 18 116/80 (92) 100 08/06/19 12:00 97.9 68 19 129/80 (96) 99 08/06/19 08:45 Room Air 08/06/19 08:00 97.0 70 20 126/78 (94) 98 08/06/19 04:00 98.2 103 18 114/76 (89) 98 08/06/19 00:00 97.9 102 18 122/79 (93) 97 08/05/19 21:00 Room Air 08/05/19 20:00 98.4 100 18 133/90 (104) 97 08/05/19 16:50 98.3 105 20 119/77 (91) 99 08/05/19 12:00 98.3 94 20 136/77 (96) 99 08/05/19 09:00 Room Air Intake and Output 08/06/19 08/07/19 19:00 07:00 Intake Total 400 ml Output Total 300 ml Balance 400 ml -300 ml Intake Oral 400 ml Post Void Residual 300 ml Bladder Scan Volume Amount 359 # Voids 1 3 Labs Test 08/05/19 06:00 White Blood Count 8.8 K/UL (4.8-10.8) Red Blood Count 2.80 M/UL (4.70-6.10) Hemoglobin 8.0 G/DL (14.2-18.0) Hematocrit 26.0 % (42.0-52.0) Mean Corpuscular Volume 93 FL (80-99) Mean Corpuscular Hemoglobin 28.7 PG (27.0-31.0) Mean Corpuscular Hemoglobin Concent 30.9 G/DL (32.0-36.0) Red Cell Distribution Width 21.1 % (11.6-14.8) Platelet Count 152 K/UL (150-450) Mean Platelet Volume 6.0 FL (6.5-10.1) Neutrophils (%) (Auto) 57.3 % (45.0-75.0) Lymphocytes (%) (Auto) 24.0 % (20.0-45.0) Monocytes (%) (Auto) 11.4 % (1.0-10.0) Eosinophils (%) (Auto) 6.3 % (0.0-3.0) Basophils (%) (Auto) 1.1 % (0.0-2.0) Sodium Level 137 MMOL/L (136-145) Potassium Level 3.5 MMOL/L (3.5-5.1) Chloride Level 105 MMOL/L (98-107) Carbon Dioxide Level 26 MMOL/L (21-32) Anion Gap 6 mmol/L (5-15) Blood Urea Nitrogen 7 mg/dL (7-18) Creatinine 0.9 MG/DL (0.55-1.30) Estimat Glomerular Filtration Rate > 60 mL/min (>60) Glucose Level 89 MG/DL (74-106) Calcium Level 8.5 MG/DL (8.5-10.1) Phosphorus Level 3.9 MG/DL (2.5-4.9) Magnesium Level 1.5 MG/DL (1.8-2.4) Total Bilirubin 1.0 MG/DL (0.2-1.0) Aspartate Amino Transf (AST/SGOT) 81 U/L (15-37) Alanine Aminotransferase (ALT/SGPT) 19 U/L (12-78) Alkaline Phosphatase 128 U/L (46-116) Total Protein 8.3 G/DL (6.4-8.2) Albumin 1.2 G/DL (3.4-5.0) Globulin 7.1 g/dL Albumin/Globulin Ratio 0.2 (1.0-2.7) Height (Feet): 5 Height (Inches): 8.00 Weight (Pounds): 153 Objective Physical Exam: Vitals: reviewed General Appearance: NAD, disoriented, restraints+ HEENT: normocephalic, atraumatic Neck: non-tender, normal alignment Respiratory/Chest: normal breath sounds bilaterally Cardiovascular/Chest: normal peripheral pulses, normal rate Abdomen: normal bowel sounds, soft, nontender +++ ascites Avery Guo MD Aug 07, 2019 08:30
--- NOTE | 2019-08-07 08:58 | NUR ---
NURSE NOTES: Patient is alert to name,respirations unlabored.Patient receiving AM care,restraints loosen ROM exercises provided.Will follow up order for paracentesis .
--- NOTE | 2019-08-07 08:58 | General Progress Note ---
Assessment/Plan Problem List: (1) Anemia ICD Codes: D64.9 - Anemia, unspecified SNOMED: 992263537 Qualifiers: Qualified Codes: D64.9 - Anemia, unspecified (2) Acute alcoholic intoxication ICD Codes: F10.929 - Alcohol use, unspecified with intoxication, unspecified SNOMED: 41546081, 3630111 Qualifiers: Qualified Codes: F10.929 - Alcohol use, unspecified with intoxication, unspecified (3) Cirrhosis ICD Codes: K74.60 - Unspecified cirrhosis of liver SNOMED: 17214324 (4) Ascites ICD Codes: R18.8 - Other ascites SNOMED: 994588314 Status: stable, unchanged Assessment/Plan: (1) Ascites ICD Codes: R18.8 - Other ascites SNOMED: 768645974 (2) Cirrhosis ICD Codes: K74.60 - Unspecified cirrhosis of liver SNOMED: 50545553 (3) Abdominal distension ICD Codes: R14.0 - Abdominal distension (gaseous) SNOMED: 33778802 (4) Acute alcoholic intoxication ICD Codes: F10.929 - Alcohol use, unspecified with intoxication, unspecified SNOMED: 15245254, 4902726 Qualifiers: Qualified Codes: F10.929 - Alcohol use, unspecified with intoxication, unspecified (5) Anemia Assessment/Plan (1) Anemia (2) Acute alcoholic intoxication (3) Cirrhosis (4) Ascites (5) Encephalopathy / delirium (6) abnormal lytes tolerating diet no obvious GIB per nurses Recommendations prn paracentesis protonix eating better , continue to push PO Subjective ROS Limited/Unobtainable: No Allergies: Coded Allergies: No Known Allergies (Unverified , 07/03/19) Objective Last 24 Hour Vital Signs Date Time Temp Pulse Resp B/P (MAP) Pulse Ox O2 Delivery O2 Flow Rate FiO2 08/07/19 04:00 98.1 112 20 134/85 (101) 94 08/07/19 00:00 98.6 116 20 134/84 (101) 96 08/06/19 21:00 Room Air 08/06/19 20:00 98.0 100 17 157/89 (111) 96 08/06/19 16:00 97.3 103 18 116/80 (92) 100 08/06/19 12:00 97.9 68 19 129/80 (96) 99 Intake and Output 08/06/19 08/07/19 19:00 07:00 Intake Total 400 ml Output Total 300 ml Balance 400 ml -300 ml Intake Oral 400 ml Post Void Residual 300 ml Bladder Scan Volume Amount 359 # Voids 1 3 Height (Feet): 5 Height (Inches): 8.00 Weight (Pounds): 153 General Appearance: no apparent distress, alert EENT: normal ENT inspection Neck: supple Cardiovascular: normal rate Respiratory/Chest: decreased breath sounds Abdomen: normal bowel sounds, non tender, soft Extremities: non-tender Robert Guzman MD Aug 07, 2019 08:58
[2019-08-07] MEDS: Spironolactone 50mg tab ORAL SCH (09:00)
[2019-08-07] MEDS: Lactulose 20gm/30ml UDC ORAL SCH ×3 (09:00→19:13)
[2019-08-07] MEDS: Magnesium Oxide 400mg tab ORAL SCH (09:00)
--- NOTE | 2019-08-07 09:03 | NUR ---
NURSE NOTES: Patient is alert to name,respirations unlabored.patient receiving AM care,restraints loosen for skin care and ANTHONY.Will follow up on bladder scan as ordered.Will follow up on Parencentesis.
--- NOTE | 2019-08-07 09:27 | NUR ---
Social Service Note [facility] has been approved, awaiting for it to show in the [facility] system. Once identified patient can transfer to an accepting SNF under hospice. [facility] notified. Will continue to monitor.
[2019-08-07 12:00] VITALS: BP 133/83
--- NOTE | 2019-08-07 12:04 | GI Progress Note ---
Assessment/Plan Problems: (1) Ascites ICD Codes: R18.8 - Other ascites SNOMED: 821911084 (2) Cirrhosis ICD Codes: K74.60 - Unspecified cirrhosis of liver SNOMED: 91321334 (3) Abdominal distension ICD Codes: R14.0 - Abdominal distension (gaseous) SNOMED: 16705679 (4) Acute alcoholic intoxication ICD Codes: F10.929 - Alcohol use, unspecified with intoxication, unspecified SNOMED: 47999086, 4696469 Qualifiers: Qualified Codes: F10.929 - Alcohol use, unspecified with intoxication, unspecified (5) Anemia ICD Codes: D64.9 - Anemia, unspecified SNOMED: 878844735 Qualifiers: Qualified Codes: D64.9 - Anemia, unspecified Status: stable Status Narrative Discussed with Dr. Guzman. Assessment/Plan Assessment (1) Anemia (2) Acute alcoholic intoxication (3) Cirrhosis (4) Ascites (5) Encephalopathy / delirium (6) abnormal lytes tolerating diet no obvious GIB per nurses Recommendations paracentesis ordered, will require 2 MD consent. We have discussed this order with Dr. Muñoz and have agreed to proceed with the paracentesis. The patient was seen and examined at bedside and all new and available data was reviewed in the patients chart. I agree with the above findings, impression and plan. (Patient seen earlier today. Signature stamp does not reflect patient encounter time.). - Robert Guzman MD Subjective Subjective limited Objective Last 24 Hour Vital Signs Date Time Temp Pulse Resp B/P (MAP) Pulse Ox O2 Delivery O2 Flow Rate FiO2 08/07/19 04:00 98.1 112 20 134/85 (101) 94 08/07/19 00:00 98.6 116 20 134/84 (101) 96 08/06/19 21:00 Room Air 08/06/19 20:00 98.0 100 17 157/89 (111) 96 08/06/19 16:00 97.3 103 18 116/80 (92) 100 Intake and Output 08/06/19 08/07/19 19:00 07:00 Intake Total 400 ml Output Total 300 ml Balance 400 ml -300 ml Intake Oral 400 ml Post Void Residual 300 ml Bladder Scan Volume Amount 359 # Voids 1 3 Height (Feet): 5 Height (Inches): 8.00 Weight (Pounds): 153 Maryam Castellanos NP Aug 07, 2019 12:04
--- NOTE | 2019-08-07 12:15 | General Progress Note ---
Assessment/Plan Status: stable Assessment/Plan: 48-year-old male with past medical history of ETOH abuse presented found down. Overall improving s/p paracentesis 07/16/19, he needs repeat paracentesis for fluid removal. Needs 2 MD consent due to mental status. I have spoken to GI Dr. Guzman and his CORPORATE REPRESENTATIVE [place] and we will proceed. #Encephalopathy likely multifactorial including hepatic encephalopathy ( elevated ammonia), as well as sepsis with bacteremia due to MSSA. #Sepsis secondary to bacteremia due to MSSA -s/p vancomycin and Zosyn (07/06), now cefazolin per ID recs. Keflex for 2 weeks started 07/21/19,finished on 08/04 -Repeat blood cultures are negative -Infectious disease consult, appreciate recs -Palliative care consult appreciated. Medical application approved. Going to hospice. CM involved and working on this process #Hypernatremia- resolved encourage PO intake # Lice - primerin treatment - Ordered to clip hair as persistent lice noted despite 2 shampoo treatment #Liver cirrhosis secondary to EtOH # ETOH withdrawal. Discontinue Libirum - DF 31 -MELD 15 on admission -Abdominal ultrasound reviewed -Status post paracentesis 07/05/2019 with removal of 8 L. -Albumin for BP support as needed -Supportive care - lactulose NE - Repeat paracentesis 07/16. Recheck INR, VIT K and ffp as needed -Add Furosemide 20mg and aldactone 50mg daily. Check chemistry prn #Anemia, likely might multifactorial including acute blood loss anemia, anemia of chronic disease -Hematology consult, appreciate recs -Iron panel: Reviewed -Low folate: Replace -B12 within normal limits above 800 #Thrombocytopenia -due to cirrhosis- stable #Substance abuse -Nodular liver in ultrasound suggestive of cirrhosis -Check hepatitis and HIV: hiv neg, hepatitis panel negative -Social work Consult - Psyche consult, appreciate recs #Hypokalemia Replace as needed # Hypomagnesemia Replace as needed # Hypocalcemia - replace as needed #Dysphagia -Etiology due to agitation, likely due underlying hepatic encephalopathy vs side effect of Ativan # Disposition SW and CM follow up needed. Homeless. hospice. palliative care consult. Medical approved The time of my note may not reflect the time of my patient encounter. I spent 25 minutes on this encounter, greater than 50 percent in counseling and care coordination Subjective Date patient seen: Aug 07, 2019 ROS Limited/Unobtainable: Yes Allergies: Coded Allergies: No Known Allergies (Unverified , 07/03/19) Subjective no acute events seen participating with PT, walking with a walker for paracentesis today Objective Last 24 Hour Vital Signs Date Time Temp Pulse Resp B/P (MAP) Pulse Ox O2 Delivery O2 Flow Rate FiO2 08/07/19 04:00 98.1 112 20 134/85 (101) 94 08/07/19 00:00 98.6 116 20 134/84 (101) 96 08/06/19 21:00 Room Air 08/06/19 20:00 98.0 100 17 157/89 (111) 96 08/06/19 16:00 97.3 103 18 116/80 (92) 100 Intake and Output 08/06/19 08/07/19 19:00 07:00 Intake Total 400 ml Output Total 300 ml Balance 400 ml -300 ml Intake Oral 400 ml Post Void Residual 300 ml Bladder Scan Volume Amount 359 # Voids 1 3 Height (Feet): 5 Height (Inches): 8.00 Weight (Pounds): 153 Objective General Appearance: moderate agitation EENT: PERRL/EOMI, normal ENT inspection Cardiovascular: normal rate Respiratory/Chest: lungs clear Abdomen: distended, hepatomegaly Edema: trace edema Neurologic: equipment associate II-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 Aug 07, 2019 12:15
--- NOTE | 2019-08-07 12:15 | Pulmonology Progress Note ---
Assessment/Plan Problems: (1) End stage liver disease (2) Coagulopathy (3) Hepatic encephalopathy Assessment/Plan increase dose of seroquel until pt is comfortable. on restrains again, Medical application in process. [facility] informed and accepted. awaiting placement. d/c planning in progress Subjective ROS Limited/Unobtainable: No Constitutional: Reports: no symptoms HEENT: Repors: no symptoms Allergies: Coded Allergies: No Known Allergies (Unverified , 07/03/19) Objective Last 24 Hour Vital Signs Date Time Temp Pulse Resp B/P (MAP) Pulse Ox O2 Delivery O2 Flow Rate FiO2 08/07/19 04:00 98.1 112 20 134/85 (101) 94 08/07/19 00:00 98.6 116 20 134/84 (101) 96 08/06/19 21:00 Room Air 08/06/19 20:00 98.0 100 17 157/89 (111) 96 08/06/19 16:00 97.3 103 18 116/80 (92) 100 Intake and Output 08/06/19 08/07/19 19:00 07:00 Intake Total 400 ml Output Total 300 ml Balance 400 ml -300 ml Intake Oral 400 ml Post Void Residual 300 ml Bladder Scan Volume Amount 359 # Voids 1 3 Objective pt has restrains again, General Appearance: WD/WN HEENT: normocephalic, atraumatic Respiratory/Chest: chest wall non-tender, lungs clear Breasts: no masses Cardiovascular: normal peripheral pulses Abdomen: normal bowel sounds, soft, non tender Genitourinary: swollen Extremities: no clubbing Current Medications Medications (Trade) Dose Ordered Sig/Tanja Route PRN Reason Start Time Stop Time Status Last Admin Dose Admin Furosemide (Lasix) 20 mg DAILY ORAL 08/01/19 09:00 08/31/19 08:59 08/06/19 09:09 Lactulose (Cephulac) 20 gm THREE TIMES A DAY ORAL 08/04/19 13:00 08/19/19 16:59 08/06/19 09:10 Lorazepam (Ativan) 2 mg EVERY 4 HOURS PRN ORAL For Anxiety 08/02/19 22:00 08/09/19 21:59 08/05/19 20:11 Mirtazapine (Remeron) 15 mg BEDTIME ORAL 08/03/19 21:00 09/02/19 20:59 08/06/19 21:25 Potassium Chloride (K-Dur) 40 meq DAILY ORAL 07/20/19 09:00 08/15/19 08:59 08/06/19 09:09 Quetiapine Fumarate (SEROquel) 100 mg EVERY 12 HOURS ORAL 08/07/19 21:00 09/02/19 08:59 UNV Spironolactone (Aldactone) 50 mg DAILY ORAL 08/01/19 09:00 08/31/19 08:59 08/06/19 09:09 Ronnell Card MD Aug 07, 2019 12:15
--- NOTE | 2019-08-07 12:30 | NUR ---
NURSE NOTES: IN and out cath done at this time,bladder scan showed 249cc, straight cat for 200cc.,patient had condom cat out put 150cc noted.
--- NOTE | 2019-08-07 13:28 | NUR ---
WEEKLY SWALLOW/SPEECH THERAPY SUMMARY: SWALLOW STATUS: STILL ON [facility] SOFT FINELY CHOPPED AND THIN LIQUIDS WITH HIGH BLAKE SUPPLEMENTS. VARIABLE INTAKE GOOD AT TIMES AND OTHER TIMES 25%. GOALS NOT CONSISTENTLY MET FOR INTAKE. HAS NOT HAD A MODIFIED BARIUM SWALLOW STUDY YET DUE TO AGITATION AND RESTLESSNESS. SPEECH/LANGUAGE/COGNITIVE STATUS: GOALS FOR STAFF AWARE OF PATIENT CONFUSION BUT PT IS [place]-SPEAKING SO IT IS DIFFICULT TO ORIENT HIM. PATIENT IS STILL DISORIENTED TO PLACE. HE DOES NOT KNOW THAT HE IS IN A HOSPITAL AND HE STILL TRIES TO GET OUT OF BED (FALL RISK). PATIENT THINKS HE IS IN [place]. SPEECH IS VARIABLY INTELLIGIBLE IN [place], HAS A RAPID SPEAKING RATE AND HIS ARTICULATION IS IMPRECISE. HE DOES NOT SLOW DOWN RATE AND TRY TO SPEAK CLEARLY EVEN WITH MAX CUES IN [place]. PLAN: CONTINUE WITH PLAN OF CARE IN EVALUATION REPORT Addendum: 08/07/19 at 1329 by MIKA GRAVES SUPPLIER MANAGER DISCUSSED ABOVE WITH SAMATNHA ROCHA.
[2019-08-07] MEDS ORDERED: LORazepam Inj 2mg/ml 1ml IV SCH (14:30)
--- NOTE | 2019-08-07 15:30 | NUR ---
RD ASSESSMENT & RECOMMENDATIONS SEE CARE ACTIVITY FOR COMPLETE ASSESSMENT DAILY ESTIMATED NEEDS: Needs based on Cirrhosis/ 60kg abw 25-30 kcals/kg 6538-0014 total kcals 1-1.5 g protein/kg 60-90 g total protein 25-30 mL/kg 7368-0627 total fluid mLs NUTRITION DIAGNOSIS: * Altered nutrition related lab values R/T cirrhosis, h/o ETOH abuse, clinical condition as evidenced by elev AST and T bili (1.4 -> wnl), elev NH3 (52 -> now wnl), low K (3.0-> wnl), low mag (1.5), low folate (5.1) * Swallowing difficulty R/T dysphagia, confusion, encephalopathy as evidenced by pt on pureed moist texture w/ NTL, w/ poor and variable PO intake. CURRENT DIET:Cardiac, finely chopped+ ensure TID PO DIET RECOMMENDATIONS: Liberalize diet to LOW NA/ texture per [employer] ADDITIONAL RECOMMENDATIONS: * Calibrated bedscale wt for accurate CBW -> [id number] vs EMR wt of 153lbs * Maintain Ensure Enlive TID w/ meals * Add MVI x 1 * Monitor lytes daily, replete as needed (low mag) * Rec appetite stimulant -> now on Remeron .
[2019-08-07 16:00] VITALS: BP 130/84
--- NOTE | 2019-08-07 19:42 | NUR ---
HAND-OFF: Report given to JOHN RODRIGUEZ RN.
--- NOTE | 2019-08-07 19:47 | NUR ---
NURSE NOTES: Received a report from Kiran Ulloa. Pt is in stable condition. Confused. No c/o pain/discomfort. IV site is patent and intact. Pt has B soft wrist restraints on. Bed in lowest position. Bed alarm is on. Call light within reach. Will continue to monitor.
[2019-08-07 20:00] VITALS: BP 125/77
--- NOTE | 2019-08-07 20:21 | NUR ---
CASE MANAGEMENT: REVIEW SI: CIRRHOSIS . ETOH ABUSE . ASCITES . SEPSIS PARACENTESIS 07/16 T 97.9 HR 116 RR 20 BP 130/84 SAT 98% ROOM AIR IS: LACTULOSE PO TID REMERON PO QHS ATIVAN PO Q4HR PRN LASIX PO QD ALDACTONE PO QD THIAMINE PO QD FOLATE ACID PO QD PROTONIX PO Q12HR MAS OX 400 MG PO QID K-DUR PO QD ENSURE TID W/ MEALS BLADDER SCAN / IN & OUT CATH BILATERAL WRIST RESTRAINTS MED/SURG STATUS DCP: PATIENT REPORTS HOMELESSNESS PLAN: PARACENTESIS
--- NOTE | 2019-08-07 20:27 | NUR ---
NURSE NOTES: Patient incontinent of urine,bladder scan show 162 cc,per order in?out cath not needed at this time.
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
--- NOTE | 2019-08-07 23:00 | NUR ---
NURSE NOTES: Bladder scan showed that there was 497cc. Darlyn ROCHA took out 420cc. Post void residual shows 143cc. Charge Nurse Anna made aware.
[2019-08-08] VITALS: BP 112/64
[2019-08-08 04:00] VITALS: BP 105/65
--- NOTE | 2019-08-08 05:00 | NUR ---
NURSE NOTES: Bladder scan showed 198cc. Charge Nurse Anna made aware.
[2019-08-08 06:07] LABS: BASOPHILS % (AUTO) 1.1 % (0.0-2.0); HEMATOCRIT 25.8 % (42.0-52.0); HEMOGLOBIN 8.1 G/DL (14.2-18.0); LYMPHOCYTES % (AUTO) 27.3 % (20.0-45.0); MEAN CORPUSCULAR VOLUME 92 FL (80-99); MONOCYTES % (AUTO) 9.2 % (1.0-10.0); NEUTROPHILS % (AUTO) 56.4 % (45.0-75.0); PLATELET COUNT 154 K/UL (150-450); RED BLOOD COUNT 2.79 M/UL (4.70-6.10); RED CELL DISTRIBUTION WIDTH 20.4 % (11.6-14.8); WHITE BLOOD COUNT 7.2 K/UL (4.8-10.8)
--- NOTE | 2019-08-08 06:35 | Hematology/Onc Progress Note ---
Assessment/Plan Assessment/Plan ASSESSMENT AND RECS # Anemia of iron deficiency in addition to suppression from etoh abuse and cirrhosis of liver, ETOH --> Anemia workup has been ordered, rule out gi bleed --> aid noted --> No evidence of hemolysis is noted, peripheral smear has been reviewed. --> Hgb goal >7. Transfuse prn. --> Hgb trend: 4.2-->7.1-->7.6 --> 7.6-->7.7-->8.9-->9.1-->8.9-->8.5->8.8-->8.9- ->9.2-->7.6-->7.5->7.4-->8 --> IRON IV 200mg ordered x 1dose (given) --> Medications have been reviewed, on thiamine and folic acid --> stool ob negative # Thrombocytopenia - secondary to liver cirrhosis and etoh use --> Hep panel and HIV - both negative --> US abd to evaluate for cirrhosis and hsm ordered - Hepatic surface nodularity, suggestive of cirrhosis. Ascites --> Peripheral smear ordered to evaluate for blasts /schistocytes and none significant noted --> abx and other meds have been reviewed --> ok for ppx if plt >50k w/ either heparin or lovenox --> Transfuse if Plt < 20k and fever, or if Plt < 10k without fever --> plt trend 90-->92k-->82-->92k-->85k-->104k-->122k-->126k-->109k-->112k-->123 -->150-->152 # Coagulopathy due to liver cirrhosis secondary to Etoh --> GI is following, appreciate recs --> Abdominal us reviewed --> Supportive care --> lactulose prophylactic --> vit K on prn basis 07/15 --> para per gi # Substance abuse --> psych eval # Hypokalemia --> Replace, continue to monitor # Hypocalcemia --> replete Ca++ prn # Cirrhosis of the liver --> appears chronic # Dvt ppx with scds --> may consider lovenox The timing of this note does not necessarily reflect the time of the patient was seen. GREATLY APPRECIATE CONSULTATION. Subjective Constitutional: Denies: no symptoms, chills, fever, malaise, weakness, other HEENT: Denies: no symptoms, eye pain, blurred vision, tearing, double vision, ear pain, ear discharge, nose pain, nose congestion, throat pain, throat swelling, mouth pain, mouth swelling, other Cardiovascular: Denies: no symptoms, chest pain, edema, irregular heart rate, lightheadedness, palpitations, syncope, other Respiratory: Denies: no symptoms, cough, shortness of breath, SOB with excertion, SOB at rest, sputum, wheezing, other Gastrointestinal/Abdominal: Denies: no symptoms, abdomen distended, abdominal pain, black stools, tarry stools, blood in stool, constipated, diarrhea, difficulty swallowing, nausea, poor appetite, poor fluid intake, rectal bleeding , vomiting, other Genitourinary: Denies: no symptoms, burning, discharge, frequency, flank pain, hematuria, incontinence, pain, urgency, other Neurologic/Psychiatric: Denies: no symptoms, anxiety, depressed, emotional problems, headache, numbness, paresthesia, pre-existing deficit, seizure, tingling, tremors, weakness, other Allergies: Coded Allergies: No Known Allergies (Unverified , 07/03/19) Subjective 07/05: no fevers, chills or night sweats noted, on iv iron has been started, on benzo 07/07: extremely agitated overnight, climbin out of bed, on cristina taper, h/h low 07/08: remains on abx, no f/c, no bleeding is noted, no changes 07/09: paracentesis negative for malignant cells, cxr and labs reviewed 07/10: no acute distress, still drowsy, has been attempting to get out of bed 07/11: transferred from [facility] to [facility], stool ob negative, h/h stable 07/12: imaging reviewed, on abx, us paracentesis, no distress 07/13: remains on librium, plt 85, hgb 8.5, no f/c, no night sweats 07/15: no bleeding, pt/ptt elevated, given vit K, no f/c, no chills noted 07/16: for repeat paracentesis, no f/c, no bleeding 07/17: us paracentesis, vs stable, no f/c, denies any pain, on abx, med reviewed 07/18: remains on ancef for now 14d as per id, no bleeding reported, no f/c 07/19: on abx, no f/c, vs stable, no sob, no acute distress, imaging reviewed 07/20: electrolytes repleted, no f/c, confused still 07/22: no events, no bleeding, labs have been reviewed, remains confused 07/23: no f/c, confused, on restraints, denies pain or comfort, on cephalexin 07/24: remains somewhat confused, on restraints, no bleeding, chills 07/25: no f/c, on restraints, seizure precaution, on cephalexin, no distress 07/26: vs stable, no f/c, agitated, refusing care/tx, hgb 7.6 repeat cbc tomorrow am 07/29: no events, no bleeding, no f/c, labs noted++ wrist restraints 07/30: getting out of restraints, no f/c, no bleeding noted 07/31: no events to report, no f/c, in restraints 08/02: remains disoriented, bilat wrist restraints, hgb 7.4, repeat cbc tomorrow 08/03: no bleeding, no night sweats, no f/c 08/05: no events, no bleeding, no night sweats, ams 08/06: trying to get out of bed, no f/c, no bleeding noted 08/07: no overnight events, afebrile, no sob, paracentesis pending 08/08: no events, no bleeding, no night sweats, para per gi Objective Objective Current Medications Medications (Trade) Dose Ordered Sig/Tanja Route PRN Reason Start Time Stop Time Status Last Admin Dose Admin Acetaminophen (Tylenol) 650 mg Q4H PRN ORAL Mild Pain and fever 08/07/19 21:30 09/06/19 21:29 08/07/19 21:51 Furosemide (Lasix) 20 mg DAILY ORAL 08/01/19 09:00 08/31/19 08:59 08/07/19 19:13 Lactulose (Cephulac) 20 gm THREE TIMES A DAY ORAL 08/04/19 13:00 08/19/19 16:59 08/07/19 19:13 Lorazepam (Ativan) 2 mg EVERY 4 HOURS PRN ORAL For Anxiety 08/02/19 22:00 08/09/19 21:59 08/05/19 20:11 Mirtazapine (Remeron) 15 mg BEDTIME ORAL 08/03/19 21:00 09/02/19 20:59 08/07/19 20:12 Potassium Chloride (K-Dur) 40 meq DAILY ORAL 07/20/19 09:00 08/15/19 08:59 08/07/19 19:13 Quetiapine Fumarate (SEROquel) 100 mg Q12HR ORAL 08/07/19 21:00 09/06/19 20:59 08/07/19 20:12 Spironolactone (Aldactone) 50 mg DAILY ORAL 08/01/19 09:00 08/31/19 08:59 08/06/19 09:09 Last 24 Hour Vital Signs Date Time Temp Pulse Resp B/P (MAP) Pulse Ox O2 Delivery O2 Flow Rate FiO2 08/08/19 04:00 97.8 102 18 105/65 (78) 94 08/08/19 00:00 98.5 112 18 112/64 (80) 94 08/07/19 22:21 98.0 08/07/19 21:00 Room Air 08/07/19 20:00 100.2 115 18 125/77 (93) 96 08/07/19 16:00 97.9 102 19 130/84 (99) 98 08/07/19 12:00 97.6 95 17 133/83 (100) 98 08/07/19 09:00 Room Air 08/07/19 08:00 97.4 96 14 110/71 (84) 95 08/07/19 04:00 98.1 112 20 134/85 (101) 94 08/07/19 00:00 98.6 116 20 134/84 (101) 96 08/06/19 21:00 Room Air 08/06/19 20:00 98.0 100 17 157/89 (111) 96 08/06/19 16:00 97.3 103 18 116/80 (92) 100 08/06/19 12:00 97.9 68 19 129/80 (96) 99 08/06/19 08:45 Room Air 08/06/19 08:00 97.0 70 20 126/78 (94) 98 Intake and Output 08/07/19 08/08/19 18:59 06:59 Intake Total 240 ml Output Total 150 ml 840 ml Balance 90 ml -840 ml Intake Oral 240 ml Output Urine Total 150 ml 420 ml Post Void Residual 420 ml Bladder Scan Volume Amount 497 # Voids 2 Labs Test 08/08/19 05:00 White Blood Count 7.2 K/UL (4.8-10.8) Red Blood Count 2.79 M/UL (4.70-6.10) Hemoglobin 8.1 G/DL (14.2-18.0) Hematocrit 25.8 % (42.0-52.0) Mean Corpuscular Volume 92 FL (80-99) Mean Corpuscular Hemoglobin 29.2 PG (27.0-31.0) Mean Corpuscular Hemoglobin Concent 31.6 G/DL (32.0-36.0) Red Cell Distribution Width 20.4 % (11.6-14.8) Platelet Count 154 K/UL (150-450) Mean Platelet Volume 5.7 FL (6.5-10.1) Neutrophils (%) (Auto) 56.4 % (45.0-75.0) Lymphocytes (%) (Auto) 27.3 % (20.0-45.0) Monocytes (%) (Auto) 9.2 % (1.0-10.0) Eosinophils (%) (Auto) 6.0 % (0.0-3.0) Basophils (%) (Auto) 1.1 % (0.0-2.0) Height (Feet): 5 Height (Inches): 8.00 Weight (Pounds): 153 Objective Physical Exam: Vitals: reviewed General Appearance: NAD, disoriented, restraints+ HEENT: normocephalic, atraumatic Neck: non-tender, normal alignment Respiratory/Chest: normal breath sounds bilaterally Cardiovascular/Chest: normal peripheral pulses, normal rate Abdomen: normal bowel sounds, soft, nontender +++ ascites Avery Guo MD Aug 08, 2019 06:35
[2019-08-08 06:37] LABS: ANION GAP 8 mmol/L (5-15); BLOOD UREA NITROGEN 8 mg/dL (7-18); CALCIUM 8.7 MG/DL (8.5-10.1); CARBON DIOXIDE 24 MMOL/L (21-32); CHLORIDE 109 MMOL/L (98-107); POTASSIUM 3.7 MMOL/L (3.5-5.1); SODIUM 141 MMOL/L (136-145)
--- NOTE | 2019-08-08 07:15 | NUR ---
HAND-OFF: Report given to JOSEFINA Ulloa.
[2019-08-08 08:00] VITALS: BP 117/59
[2019-08-08] MEDS: Lactulose 20gm/30ml UDC ORAL SCH ×3 (09:00→17:28)
[2019-08-08] MEDS ORDERED: SEROQUEL100 MG ORAL (11:44)
--- NOTE | 2019-08-08 11:46 | Pulmonology Progress Note ---
Assessment/Plan Problems: (1) End stage liver disease (2) Coagulopathy (3) Hepatic encephalopathy Assessment/Plan looks comfortable on restrains again, [facility] informed and accepted. awaiting placement. d/c planning in progress Subjective ROS Limited/Unobtainable: No Constitutional: Reports: no symptoms HEENT: Repors: no symptoms Respiratory: Reports: no symptoms Allergies: Coded Allergies: No Known Allergies (Unverified , 07/03/19) Objective Last 24 Hour Vital Signs Date Time Temp Pulse Resp B/P (MAP) Pulse Ox O2 Delivery O2 Flow Rate FiO2 08/08/19 04:00 97.8 102 18 105/65 (78) 94 08/08/19 00:00 98.5 112 18 112/64 (80) 94 08/07/19 22:21 98.0 08/07/19 21:00 Room Air 08/07/19 20:00 100.2 115 18 125/77 (93) 96 08/07/19 16:00 97.9 102 19 130/84 (99) 98 08/07/19 12:00 97.6 95 17 133/83 (100) 98 Intake and Output 08/07/19 08/08/19 19:00 07:00 Intake Total 240 ml Output Total 150 ml 840 ml Balance 90 ml -840 ml Intake Oral 240 ml Output Urine Total 150 ml 420 ml Post Void Residual 420 ml Bladder Scan Volume Amount 497 # Voids 2 Objective pt has restrains again, General Appearance: WD/WN HEENT: normocephalic, atraumatic Respiratory/Chest: chest wall non-tender, lungs clear Breasts: no masses Cardiovascular: normal peripheral pulses Abdomen: normal bowel sounds, soft, non tender Genitourinary: swollen Extremities: no clubbing Laboratory Tests 08/08/19 05:00: White Blood Count 7.2, Red Blood Count 2.79L, Hemoglobin 8.1L, Hematocrit 25.8L , Mean Corpuscular Volume 92, Mean Corpuscular Hemoglobin 29.2, Mean Corpuscular Hemoglobin Concent 31.6L, Red Cell Distribution Width 20.4H, Platelet Count 154, Mean Platelet Volume 5.7L, Neutrophils (%) (Auto) 56.4, Lymphocytes (%) (Auto) 27.3, Monocytes (%) (Auto) 9.2, Eosinophils (%) (Auto) 6.0H, Basophils (%) (Auto) 1.1, Sodium Level 141, Potassium Level 3.7, Chloride Level 109H, Carbon Dioxide Level 24, Anion Gap 8, Blood Urea Nitrogen 8, Creatinine 1.0, Estimat Glomerular Filtration Rate > 60, Glucose Level 82, Calcium Level 8.7 Current Medications Medications (Trade) Dose Ordered Sig/Tanja Route PRN Reason Start Time Stop Time Status Last Admin Dose Admin Acetaminophen (Tylenol) 650 mg Q4H PRN ORAL Mild Pain and fever 08/07/19 21:30 09/06/19 21:29 08/07/19 21:51 Furosemide (Lasix) 20 mg DAILY ORAL 08/01/19 09:00 08/31/19 08:59 08/07/19 19:13 Lactulose (Cephulac) 20 gm THREE TIMES A DAY ORAL 08/04/19 13:00 08/19/19 16:59 08/07/19 19:13 Lorazepam (Ativan) 2 mg EVERY 4 HOURS PRN ORAL For Anxiety 08/02/19 22:00 08/09/19 21:59 08/05/19 20:11 Mirtazapine (Remeron) 15 mg BEDTIME ORAL 08/03/19 21:00 09/02/19 20:59 08/07/19 20:12 Potassium Chloride (K-Dur) 40 meq DAILY ORAL 07/20/19 09:00 08/15/19 08:59 08/07/19 19:13 Quetiapine Fumarate (SEROquel) 100 mg Q12HR ORAL 08/07/19 21:00 09/06/19 20:59 08/07/19 20:12 Spironolactone (Aldactone) 50 mg DAILY ORAL 08/01/19 09:00 08/31/19 08:59 08/06/19 09:09 oRnnell Card MD Aug 08, 2019 11:46
[2019-08-08 12:00] VITALS: BP 140/82
--- NOTE | 2019-08-08 12:22 | General Progress Note ---
Assessment/Plan Status: stable Assessment/Plan: 48-year-old male with past medical history of ETOH abuse presented found down. Overall improving s/p paracentesis. #Encephalopathy likely multifactorial including hepatic encephalopathy ( elevated ammonia), as well as sepsis with bacteremia due to MSSA. #Sepsis secondary to bacteremia due to MSSA -s/p vancomycin and Zosyn (07/06), now cefazolin per ID recs. Keflex for 2 weeks started 07/21/19,finished on 08/04 -Repeat blood cultures are negative -Infectious disease consult, appreciate recs -Palliative care consult appreciated. Medical application approved. Going to hospice. CM involved and working on this process #Hypernatremia- resolved encourage PO intake # Lice - primerin treatment - Ordered to clip hair as persistent lice noted despite 2 shampoo treatment #Liver cirrhosis secondary to EtOH # ETOH withdrawal. Discontinue Libirum - DF 31 -MELD 15 on admission -Abdominal ultrasound reviewed -Status post paracentesis 07/05/2019 with removal of 8 L. -Albumin for BP support as needed -Supportive care - lactulose CA - Repeat paracentesis 07/16. Recheck INR, VIT K and ffp as needed -Add Furosemide 20mg and aldactone 50mg daily. Check chemistry prn #Anemia, likely might multifactorial including acute blood loss anemia, anemia of chronic disease -Hematology consult, appreciate recs -Iron panel: Reviewed -Low folate: Replace -B12 within normal limits above 800 #Thrombocytopenia -due to cirrhosis- stable #Substance abuse -Nodular liver in ultrasound suggestive of cirrhosis -Check hepatitis and HIV: hiv neg, hepatitis panel negative -Social work Consult - Psyche consult, appreciate recs #Hypokalemia Replace as needed # Hypomagnesemia Replace as needed # Hypocalcemia - replace as needed #Dysphagia -Etiology due to agitation, likely due underlying hepatic encephalopathy vs side effect of Ativan # Disposition SW and CM follow up needed. Homeless. hospice. palliative care consult. Medical approved The time of my note may not reflect the time of my patient encounter. I spent 15 minutes on this encounter, greater than 50 percent in counseling and care coordination Subjective Date patient seen: Aug 08, 2019 ROS Limited/Unobtainable: Yes Allergies: Coded Allergies: No Known Allergies (Unverified , 07/03/19) Subjective no acute events medical application approved waiting for snf/hospice placement Objective Last 24 Hour Vital Signs Date Time Temp Pulse Resp B/P (MAP) Pulse Ox O2 Delivery O2 Flow Rate FiO2 08/08/19 04:00 97.8 102 18 105/65 (78) 94 08/08/19 00:00 98.5 112 18 112/64 (80) 94 08/07/19 22:21 98.0 08/07/19 21:00 Room Air 08/07/19 20:00 100.2 115 18 125/77 (93) 96 08/07/19 16:00 97.9 102 19 130/84 (99) 98 Intake and Output 08/07/19 08/08/19 19:00 07:00 Intake Total 240 ml Output Total 150 ml 840 ml Balance 90 ml -840 ml Intake Oral 240 ml Output Urine Total 150 ml 420 ml Post Void Residual 420 ml Bladder Scan Volume Amount 497 # Voids 2 Laboratory Tests 08/08/19 05:00: White Blood Count 7.2, Red Blood Count 2.79L, Hemoglobin 8.1L, Hematocrit 25.8L , Mean Corpuscular Volume 92, Mean Corpuscular Hemoglobin 29.2, Mean Corpuscular Hemoglobin Concent 31.6L, Red Cell Distribution Width 20.4H, Platelet Count 154, Mean Platelet Volume 5.7L, Neutrophils (%) (Auto) 56.4, Lymphocytes (%) (Auto) 27.3, Monocytes (%) (Auto) 9.2, Eosinophils (%) (Auto) 6.0H, Basophils (%) (Auto) 1.1, Sodium Level 141, Potassium Level 3.7, Chloride Level 109H, Carbon Dioxide Level 24, Anion Gap 8, Blood Urea Nitrogen 8, Creatinine 1.0, Estimat Glomerular Filtration Rate > 60, Glucose Level 82, Calcium Level 8.7 Height (Feet): 5 Height (Inches): 8.00 Weight (Pounds): 153 Objective General Appearance: moderate agitation EENT: PERRL/EOMI, normal ENT inspection Cardiovascular: normal rate Respiratory/Chest: lungs clear Abdomen: distended, hepatomegaly Edema: trace edema Neurologic: skate boarder II-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 Aug 08, 2019 12:22
--- NOTE | 2019-08-08 12:25 | General Progress Note ---
Assessment/Plan Problem List: (1) Anemia ICD Codes: D64.9 - Anemia, unspecified SNOMED: 193858603 Qualifiers: Qualified Codes: D64.9 - Anemia, unspecified (2) Acute alcoholic intoxication ICD Codes: F10.929 - Alcohol use, unspecified with intoxication, unspecified SNOMED: 40752721, 2586508 Qualifiers: Qualified Codes: F10.929 - Alcohol use, unspecified with intoxication, unspecified (3) Cirrhosis ICD Codes: K74.60 - Unspecified cirrhosis of liver SNOMED: 16375277 (4) Ascites ICD Codes: R18.8 - Other ascites SNOMED: 449388367 Status: stable Assessment/Plan: (1) Ascites ICD Codes: R18.8 - Other ascites SNOMED: 836818712 (2) Cirrhosis ICD Codes: K74.60 - Unspecified cirrhosis of liver SNOMED: 27450755 (3) Abdominal distension ICD Codes: R14.0 - Abdominal distension (gaseous) SNOMED: 46764613 (4) Acute alcoholic intoxication ICD Codes: F10.929 - Alcohol use, unspecified with intoxication, unspecified SNOMED: 63385474, 3927141 Qualifiers: Qualified Codes: F10.929 - Alcohol use, unspecified with intoxication, unspecified (5) Anemia Assessment/Plan (1) Anemia (2) Acute alcoholic intoxication (3) Cirrhosis (4) Ascites (5) Encephalopathy / delirium (6) abnormal lytes tolerating diet no obvious GIB per nurses Recommendations prn paracentesis protonix eating better , continue to push PO Subjective Allergies: Coded Allergies: No Known Allergies (Unverified , 07/03/19) Objective Last 24 Hour Vital Signs Date Time Temp Pulse Resp B/P (MAP) Pulse Ox O2 Delivery O2 Flow Rate FiO2 08/08/19 04:00 97.8 102 18 105/65 (78) 94 08/08/19 00:00 98.5 112 18 112/64 (80) 94 08/07/19 22:21 98.0 08/07/19 21:00 Room Air 08/07/19 20:00 100.2 115 18 125/77 (93) 96 08/07/19 16:00 97.9 102 19 130/84 (99) 98 Intake and Output 08/07/19 08/08/19 19:00 07:00 Intake Total 240 ml Output Total 150 ml 840 ml Balance 90 ml -840 ml Intake Oral 240 ml Output Urine Total 150 ml 420 ml Post Void Residual 420 ml Bladder Scan Volume Amount 497 # Voids 2 Laboratory Tests 08/08/19 05:00: White Blood Count 7.2, Red Blood Count 2.79L, Hemoglobin 8.1L, Hematocrit 25.8L , Mean Corpuscular Volume 92, Mean Corpuscular Hemoglobin 29.2, Mean Corpuscular Hemoglobin Concent 31.6L, Red Cell Distribution Width 20.4H, Platelet Count 154, Mean Platelet Volume 5.7L, Neutrophils (%) (Auto) 56.4, Lymphocytes (%) (Auto) 27.3, Monocytes (%) (Auto) 9.2, Eosinophils (%) (Auto) 6.0H, Basophils (%) (Auto) 1.1, Sodium Level 141, Potassium Level 3.7, Chloride Level 109H, Carbon Dioxide Level 24, Anion Gap 8, Blood Urea Nitrogen 8, Creatinine 1.0, Estimat Glomerular Filtration Rate > 60, Glucose Level 82, Calcium Level 8.7 Height (Feet): 5 Height (Inches): 8.00 Weight (Pounds): 153 General Appearance: no apparent distress EENT: normal ENT inspection Neck: normal alignment Cardiovascular: normal peripheral pulses Respiratory/Chest: chest wall non-tender Abdomen: normal bowel sounds, non tender, soft Extremities: non-tender Robert Guzman MD Aug 08, 2019 12:25
--- NOTE | 2019-08-08 13:56 | NUR ---
NURSE NOTES: Patient wakes up when name called,respirations unlabored,breakfast at bedside attempt oo give patient breakfast,but patient falls back to sleep,will attempt later.Avina catheter is in place and draining clear daniela color urine.Soft wrist restraints are on will provide ROM and skin care.Bed alarm is on,call light within reach. Addendum: 08/08/19 at 2024 by SAMANTHA GRANT RN RN Nurse note for [id number]
[2019-08-08 16:00] VITALS: BP 130/87
[2019-08-08] MEDS: Spironolactone 50mg tab ORAL SCH (17:28)
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
--- NOTE | 2019-08-08 18:45 | NUR ---
NURSE NOTES Patient awake ,skin care given,assist patient with dinner,able to give po medication,ROM provided,wrist restraint needed,patient pulling at mariano catheter.Soft wrist restraints are on,bed alarm is on,call light within reach
--- NOTE | 2019-08-08 19:25 | NUR ---
HAND-OFF: Report given to Di ROCHA.
[2019-08-08 20:22] VITALS: BP 128/73
--- NOTE | 2019-08-08 21:28 | NUR ---
NURSE NOTES: PATIENT IN BED, AWAKE. ON BILATERAL SOFT WRIST RESTRAINTS FOR PATIENT SAFETY. NO S/S DISTRESS NOTED. NO S/S PAIN NOTED. PARRA IN PLACE, DRAINING YELLOW URINE. BED IN LOWEST POSITION, CALL LIGHT WITHIN REACH, BED ALARM ON. WILL CONTINUE TO MONITOR.
[2019-08-09 00:12] VITALS: BP 100/70
[2019-08-09 04:46] VITALS: BP 120/80
--- NOTE | 2019-08-09 05:41 | NUR ---
NURSE NOTES: PATIENT V/S STALE, RESTLESS, REPOSITIONED NEEDED.
--- NOTE | 2019-08-09 07:17 | NUR ---
HAND-OFF: Report given to KRUPA ROE RN.
[2019-08-09 08:00] VITALS: BP 127/80
[2019-08-09] MEDS: Spironolactone 50mg tab ORAL SCH (08:33)
[2019-08-09] MEDS: Lactulose 20gm/30ml UDC ORAL SCH ×3 (08:33→18:35)
--- NOTE | 2019-08-09 09:09 | Hematology/Onc Progress Note ---
Assessment/Plan Assessment/Plan ASSESSMENT AND RECS # Anemia of iron deficiency in addition to suppression from etoh abuse and cirrhosis of liver, ETOH --> Anemia workup has been ordered, rule out gi bleed --> aid noted --> No evidence of hemolysis is noted, peripheral smear has been reviewed. --> Hgb goal >7. Transfuse prn. --> Hgb trend: 4.2-->7.1-->7.6 --> 7.6-->7.7-->8.9-->9.1-->8.9-->8.5->8.8-->8.9- ->9.2-->7.6-->7.5->7.4-->8 --> IRON IV 200mg ordered x 1dose (given) --> Medications have been reviewed, on thiamine and folic acid --> stool ob negative # Thrombocytopenia - secondary to liver cirrhosis and etoh use --> Hep panel and HIV - both negative --> US abd to evaluate for cirrhosis and hsm ordered - Hepatic surface nodularity, suggestive of cirrhosis. Ascites --> Peripheral smear ordered to evaluate for blasts /schistocytes and none significant noted --> abx and other meds have been reviewed --> ok for ppx if plt >50k w/ either heparin or lovenox --> Transfuse if Plt < 20k and fever, or if Plt < 10k without fever --> plt trend 90-->92k-->82-->92k-->85k-->104k-->122k-->126k-->109k-->112k-->123 -->150-->152 # Coagulopathy due to liver cirrhosis secondary to Etoh --> GI is following, appreciate recs --> Abdominal us reviewed --> Supportive care --> lactulose prophylactic --> vit K on prn basis 07/15 --> para per gi # Substance abuse --> psych eval # Hypokalemia --> Replace, continue to monitor # Hypocalcemia --> replete Ca++ prn # Cirrhosis of the liver --> appears chronic --> thoracentesis path report negative for malignant cells # Dvt ppx with scds --> may consider lovenox The timing of this note does not necessarily reflect the time of the patient was seen. GREATLY APPRECIATE CONSULTATION. Subjective Allergies: Coded Allergies: No Known Allergies (Unverified , 07/03/19) Subjective 07/05: no fevers, chills or night sweats noted, on iv iron has been started, on benzo 07/07: extremely agitated overnight, climbin out of bed, on cristina taper, h/h low 07/08: remains on abx, no f/c, no bleeding is noted, no changes 07/09: paracentesis negative for malignant cells, cxr and labs reviewed 07/10: no acute distress, still drowsy, has been attempting to get out of bed 07/11: transferred from donna to tele, stool ob negative, h/h stable 07/12: imaging reviewed, on abx, us paracentesis, no distress 07/13: remains on librium, plt 85, hgb 8.5, no f/c, no night sweats 07/15: no bleeding, pt/ptt elevated, given vit K, no f/c, no chills noted 07/16: for repeat paracentesis, no f/c, no bleeding 07/17: us paracentesis, vs stable, no f/c, denies any pain, on abx, med reviewed 07/18: remains on ancef for now 14d as per id, no bleeding reported, no f/c 07/19: on abx, no f/c, vs stable, no sob, no acute distress, imaging reviewed 07/20: electrolytes repleted, no f/c, confused still 07/22: no events, no bleeding, labs have been reviewed, remains confused 07/23: no f/c, confused, on restraints, denies pain or comfort, on cephalexin 07/24: remains somewhat confused, on restraints, no bleeding, chills 07/25: no f/c, on restraints, seizure precaution, on cephalexin, no distress 07/26: vs stable, no f/c, agitated, refusing care/tx, hgb 7.6 repeat cbc tomorrow am 07/29: no events, no bleeding, no f/c, labs noted++ wrist restraints 07/30: getting out of restraints, no f/c, no bleeding noted 07/31: no events to report, no f/c, in restraints 08/02: remains disoriented, bilat wrist restraints, hgb 7.4, repeat cbc tomorrow 08/03: no bleeding, no night sweats, no f/c 08/05: no events, no bleeding, no night sweats, ams 08/06: trying to get out of bed, no f/c, no bleeding noted 08/07: no overnight events, afebrile, no sob, paracentesis pending 08/08: no events, no bleeding, no night sweats, para per gi 08/09: awake and alert, no acute events, thoracentesis path report negative for malignant cells Objective Objective Current Medications Medications (Trade) Dose Ordered Sig/Tanja Route PRN Reason Start Time Stop Time Status Last Admin Dose Admin Acetaminophen (Tylenol) 650 mg Q4H PRN ORAL Mild Pain and fever 08/07/19 21:30 09/06/19 21:29 08/07/19 21:51 Furosemide (Lasix) 20 mg DAILY ORAL 08/01/19 09:00 08/31/19 08:59 08/09/19 08:33 Lactulose (Cephulac) 20 gm THREE TIMES A DAY ORAL 08/04/19 13:00 08/19/19 16:59 08/09/19 08:33 Lorazepam (Ativan) 2 mg EVERY 4 HOURS PRN ORAL For Anxiety 08/02/19 22:00 08/09/19 21:59 08/05/19 20:11 Mirtazapine (Remeron) 15 mg BEDTIME ORAL 08/03/19 21:00 09/02/19 20:59 08/08/19 20:28 Potassium Chloride (K-Dur) 40 meq DAILY ORAL 07/20/19 09:00 08/15/19 08:59 08/09/19 08:33 Quetiapine Fumarate (SEROquel) 100 mg Q12HR ORAL 08/07/19 21:00 09/06/19 20:59 08/09/19 08:33 Spironolactone (Aldactone) 50 mg DAILY ORAL 08/01/19 09:00 08/31/19 08:59 08/09/19 08:33 Last 24 Hour Vital Signs Date Time Temp Pulse Resp B/P (MAP) Pulse Ox O2 Delivery O2 Flow Rate FiO2 08/09/19 08:00 98.0 101 20 127/80 (96) 98 08/09/19 04:46 98.2 102 20 120/80 (93) 100 08/09/19 00:12 98.5 116 20 100/70 (80) 100 08/08/19 21:19 Room Air 08/08/19 20:22 99.0 116 20 128/73 (91) 98 08/08/19 16:00 98.9 114 20 130/87 (101) 98 08/08/19 12:00 97.3 65 19 140/82 (101) 95 08/08/19 09:00 Room Air 08/08/19 08:00 97.4 57 18 117/59 (78) 94 08/08/19 04:00 97.8 102 18 105/65 (78) 94 08/08/19 00:00 98.5 112 18 112/64 (80) 94 08/07/19 22:21 98.0 08/07/19 21:00 Room Air 08/07/19 20:00 100.2 115 18 125/77 (93) 96 08/07/19 16:00 97.9 102 19 130/84 (99) 98 08/07/19 12:00 97.6 95 17 133/83 (100) 98 Intake and Output 08/08/19 08/09/19 18:59 06:59 Intake Total 240 ml Output Total 1000 ml 600 ml Balance -760 ml -600 ml Intake Oral 240 ml Output Urine Total 1000 ml 600 ml Labs Test 08/08/19 05:00 White Blood Count 7.2 K/UL (4.8-10.8) Red Blood Count 2.79 M/UL (4.70-6.10) Hemoglobin 8.1 G/DL (14.2-18.0) Hematocrit 25.8 % (42.0-52.0) Mean Corpuscular Volume 92 FL (80-99) Mean Corpuscular Hemoglobin 29.2 PG (27.0-31.0) Mean Corpuscular Hemoglobin Concent 31.6 G/DL (32.0-36.0) Red Cell Distribution Width 20.4 % (11.6-14.8) Platelet Count 154 K/UL (150-450) Mean Platelet Volume 5.7 FL (6.5-10.1) Neutrophils (%) (Auto) 56.4 % (45.0-75.0) Lymphocytes (%) (Auto) 27.3 % (20.0-45.0) Monocytes (%) (Auto) 9.2 % (1.0-10.0) Eosinophils (%) (Auto) 6.0 % (0.0-3.0) Basophils (%) (Auto) 1.1 % (0.0-2.0) Sodium Level 141 MMOL/L (136-145) Potassium Level 3.7 MMOL/L (3.5-5.1) Chloride Level 109 MMOL/L (98-107) Carbon Dioxide Level 24 MMOL/L (21-32) Anion Gap 8 mmol/L (5-15) Blood Urea Nitrogen 8 mg/dL (7-18) Creatinine 1.0 MG/DL (0.55-1.30) Estimat Glomerular Filtration Rate > 60 mL/min (>60) Glucose Level 82 MG/DL (74-106) Calcium Level 8.7 MG/DL (8.5-10.1) Height (Feet): 5 Height (Inches): 8.00 Weight (Pounds): 153 Objective Physical Exam: Vitals: reviewed General Appearance: NAD, disoriented, restraints+ HEENT: normocephalic, atraumatic Neck: non-tender, normal alignment Respiratory/Chest: normal breath sounds bilaterally Cardiovascular/Chest: normal peripheral pulses, normal rate Abdomen: normal bowel sounds, soft, nontender +++ ascites Avery Guo MD Aug 09, 2019 09:09
--- NOTE | 2019-08-09 10:20 | General Progress Note ---
Assessment/Plan Problem List: (1) Anemia ICD Codes: D64.9 - Anemia, unspecified SNOMED: 445530327 Qualifiers: Qualified Codes: D64.9 - Anemia, unspecified (2) Acute alcoholic intoxication ICD Codes: F10.929 - Alcohol use, unspecified with intoxication, unspecified SNOMED: 69231514, 9611495 Qualifiers: Qualified Codes: F10.929 - Alcohol use, unspecified with intoxication, unspecified (3) Cirrhosis ICD Codes: K74.60 - Unspecified cirrhosis of liver SNOMED: 67910220 (4) Ascites ICD Codes: R18.8 - Other ascites SNOMED: 257634807 Status: stable Assessment/Plan: (1) Ascites ICD Codes: R18.8 - Other ascites SNOMED: 439075153 (2) Cirrhosis ICD Codes: K74.60 - Unspecified cirrhosis of liver SNOMED: 17825354 (3) Abdominal distension ICD Codes: R14.0 - Abdominal distension (gaseous) SNOMED: 62080905 (4) Acute alcoholic intoxication ICD Codes: F10.929 - Alcohol use, unspecified with intoxication, unspecified SNOMED: 45072396, 7830460 Qualifiers: Qualified Codes: F10.929 - Alcohol use, unspecified with intoxication, unspecified (5) Anemia Assessment/Plan (1) Anemia (2) Acute alcoholic intoxication (3) Cirrhosis (4) Ascites (5) Encephalopathy / delirium (6) abnormal lytes tolerating diet no obvious GIB per nurses Recommendations prn paracentesis>>> ordered one for today protonix fu labs Subjective ROS Limited/Unobtainable: No Allergies: Coded Allergies: No Known Allergies (Unverified , 07/03/19) Objective Last 24 Hour Vital Signs Date Time Temp Pulse Resp B/P (MAP) Pulse Ox O2 Delivery O2 Flow Rate FiO2 08/09/19 09:00 Room Air 08/09/19 08:00 98.0 101 20 127/80 (96) 98 08/09/19 04:46 98.2 102 20 120/80 (93) 100 08/09/19 00:12 98.5 116 20 100/70 (80) 100 08/08/19 21:19 Room Air 08/08/19 20:22 99.0 116 20 128/73 (91) 98 08/08/19 16:00 98.9 114 20 130/87 (101) 98 08/08/19 12:00 97.3 65 19 140/82 (101) 95 Intake and Output 08/08/19 08/09/19 18:59 06:59 Intake Total 240 ml Output Total 1000 ml 600 ml Balance -760 ml -600 ml Intake Oral 240 ml Output Urine Total 1000 ml 600 ml Height (Feet): 5 Height (Inches): 8.00 Weight (Pounds): 153 General Appearance: no apparent distress EENT: normal ENT inspection Neck: supple Cardiovascular: normal rate Respiratory/Chest: decreased breath sounds Abdomen: normal bowel sounds, non tender, soft Extremities: non-tender Robert Guzman MD Aug 09, 2019 10:20
--- NOTE | 2019-08-09 10:25 | NUR ---
NURSE NOTES: Received patient on bed, asleep. Bi lateral wrist restraints present. Peripheral pulses present and sensation and temperature is normal. IV site is not patent, will attempt to start a new IV later, charge nurse aware. Bed in low and locked position, call light in reach. Mariano catheter present, placed mariano anchor. Mariano is intact, patent and draining. No signs of respiratory distress or pain. Room board updated, will continue to monitor.
[2019-08-09 12:00] VITALS: BP 106/65
--- NOTE | 2019-08-09 12:14 | Pulmonology Progress Note ---
Assessment/Plan Problems: (1) End stage liver disease (2) Coagulopathy (3) Hepatic encephalopathy Assessment/Plan looks comfortable on restrains again, [facility] informed and accepted. awaiting placement. Subjective ROS Limited/Unobtainable: Yes Interval Events: comfortable Allergies: Coded Allergies: No Known Allergies (Unverified , 07/03/19) Objective Last 24 Hour Vital Signs Date Time Temp Pulse Resp B/P (MAP) Pulse Ox O2 Delivery O2 Flow Rate FiO2 08/09/19 09:00 Room Air 08/09/19 08:00 98.0 101 20 127/80 (96) 98 08/09/19 04:46 98.2 102 20 120/80 (93) 100 08/09/19 00:12 98.5 116 20 100/70 (80) 100 08/08/19 21:19 Room Air 08/08/19 20:22 99.0 116 20 128/73 (91) 98 08/08/19 16:00 98.9 114 20 130/87 (101) 98 Intake and Output 08/08/19 08/09/19 18:59 06:59 Intake Total 240 ml Output Total 1000 ml 600 ml Balance -760 ml -600 ml Intake Oral 240 ml Output Urine Total 1000 ml 600 ml Objective pt has restrains again, General Appearance: WD/WN HEENT: normocephalic, atraumatic Respiratory/Chest: chest wall non-tender, lungs clear Breasts: no masses Cardiovascular: normal peripheral pulses Abdomen: normal bowel sounds, soft, non tender Genitourinary: swollen Extremities: no clubbing Current Medications Medications (Trade) Dose Ordered Sig/Tanja Route PRN Reason Start Time Stop Time Status Last Admin Dose Admin Acetaminophen (Tylenol) 650 mg Q4H PRN ORAL Mild Pain and fever 08/07/19 21:30 09/06/19 21:29 08/07/19 21:51 Furosemide (Lasix) 20 mg DAILY ORAL 08/01/19 09:00 08/31/19 08:59 08/09/19 08:33 Lactulose (Cephulac) 20 gm THREE TIMES A DAY ORAL 08/04/19 13:00 08/19/19 16:59 08/09/19 08:33 Lorazepam (Ativan) 2 mg EVERY 4 HOURS PRN ORAL For Anxiety 08/02/19 22:00 08/09/19 21:59 08/05/19 20:11 Mirtazapine (Remeron) 15 mg BEDTIME ORAL 08/03/19 21:00 09/02/19 20:59 08/08/19 20:28 Potassium Chloride (K-Dur) 40 meq DAILY ORAL 07/20/19 09:00 08/15/19 08:59 08/09/19 08:33 Quetiapine Fumarate (SEROquel) 100 mg Q12HR ORAL 08/07/19 21:00 09/06/19 20:59 08/09/19 08:33 Spironolactone (Aldactone) 50 mg DAILY ORAL 08/01/19 09:00 08/31/19 08:59 08/09/19 08:33 Ronnell Card MD Aug 09, 2019 12:14
--- NOTE | 2019-08-09 13:08 | General Progress Note ---
Progress Note Progress Note Bioethics Meeting The Bioethics Committee met at the request io the attending physician Dr. Barboza and palliatrive healthcare educator. Present were Alexa Anthony, hospice social worker, Jean Pierre Coats MD, Cornelia Salguero Ph.D. and a represenmtative of the nursing service. The patient is unrepresented, homeless, chronic alcoholic (still drinking when out of hospital) with end- stage liver disease and encephalopathy. The palliatrive healthcare educator recommended DNR/DNI, hospice with residential placement with instructions for do not return to acute setting in view of further acute care being futile. The Committee is in agreement with these recommendations: Eliud Thompson MD Chair Bioethics Committee Eliud Thompson MD Aug 09, 2019 13:08
--- NOTE | 2019-08-09 14:22 | NUR ---
Social Service Note Bioethics meeting completed. POLST completed indicating DNR/DNI HOSPICE and no return to the acute setting. Patient is anticipated to dc to [facility] today.
--- NOTE | 2019-08-09 15:47 | General Progress Note ---
Assessment/Plan Problem List: (1) Anemia ICD Codes: D64.9 - Anemia, unspecified SNOMED: 991608917 Qualifiers: Qualified Codes: D64.9 - Anemia, unspecified (2) Acute alcoholic intoxication ICD Codes: F10.929 - Alcohol use, unspecified with intoxication, unspecified SNOMED: 04432308, 6119985 Qualifiers: Qualified Codes: F10.929 - Alcohol use, unspecified with intoxication, unspecified (3) Abdominal distension ICD Codes: R14.0 - Abdominal distension (gaseous) SNOMED: 63904881 (4) Facial trauma ICD Codes: S09.93XA - Unspecified injury of face, initial encounter SNOMED: 023288573 (5) Cirrhosis ICD Codes: K74.60 - Unspecified cirrhosis of liver SNOMED: 10901119 (6) Ascites ICD Codes: R18.8 - Other ascites SNOMED: 402643436 (7) Hepatic encephalopathy ICD Codes: K72.90 - Hepatic failure, unspecified without coma SNOMED: 40217410 (8) Coagulopathy ICD Codes: D68.9 - Coagulation defect, unspecified SNOMED: 97088887 (9) End stage liver disease ICD Codes: K72.90 - Hepatic failure, unspecified without coma SNOMED: 641931024 Status: stable Assessment/Plan: 48-year-old male with past medical history of ETOH abuse presented found down. Admitted with etoh/cirrhotic encephalopathy, sepsis with MSSA bacteremia. Hypernatremia. Lice. #Sepsis secondary to bacteremia due to MSSA -s/p vancomycin and Zosyn (07/06), now cefazolin per ID recs. Keflex for 2 weeks started 07/21/19,finished on 08/04 -Repeat blood cultures are negative -Infectious disease consult, appreciate recs #Liver cirrhosis secondary to EtOH ETOH withdrawal. Discontinue Libirum. Don't suspect withdrawal now. MELD 15 on admission Abdominal ultrasound reviewed. + cirrhosis Status post multiple diagnostic and large volume therapeutic paracentesis. Supportive care lactulose LA Furosemide 20mg and aldactone 50mg daily. to help with reducing accumulation of ascites and comfort. -Palliative care consult appreciated. qualifies for hospice. Bioethics committee met today 08/09/2019 and agrees with decision of hospice, DNR/DNI. He is accepted to [facility]. #Hypernatremia- resolved encourage PO intake # Lice. s/p primerin treatment #Anemia, multifactorial including acute blood loss anemia from varices and portal hypertension, anemia of chronic disease -Hematology consult, appreciate recs -Iron panel: Reviewed -Low folate: Replace -B12 within normal limits above 800 #Thrombocytopenia -due to cirrhosis- stable #Substance abuse -Nodular liver in ultrasound suggestive of cirrhosis -Check hepatitis and HIV: hiv neg, hepatitis panel negative -Social work Consult - Psyche consult, appreciate recs #Hypokalemia Replace as needed # Hypomagnesemia Replace as needed # Hypocalcemia - replace as needed #Dysphagia -Etiology due to agitation, likely due underlying hepatic encephalopathy vs side effect of Ativan # Disposition [facility] Today on exam, VSS, he is awake and cooperative. Abdomen distended, non tender. He is alert and oriented to self only. The time of my note may not reflect the time of my patient encounter. I spent 30 minutes on this encounter, greater than 50 percent in counseling and care coordination Subjective Date patient seen: Aug 09, 2019 ROS Limited/Unobtainable: Yes Allergies: Coded Allergies: No Known Allergies (Unverified , 07/03/19) Subjective comfortable and alert, oriented to self. [employer] application approved. Waiting for hospice. Meeting with bioethics committee today. Objective Last 24 Hour Vital Signs Date Time Temp Pulse Resp B/P (MAP) Pulse Ox O2 Delivery O2 Flow Rate FiO2 08/09/19 12:00 98.0 109 19 106/65 (79) 96 08/09/19 09:00 Room Air 08/09/19 08:00 98.0 101 20 127/80 (96) 98 08/09/19 04:46 98.2 102 20 120/80 (93) 100 08/09/19 00:12 98.5 116 20 100/70 (80) 100 08/08/19 21:19 Room Air 08/08/19 20:22 99.0 116 20 128/73 (91) 98 08/08/19 16:00 98.9 114 20 130/87 (101) 98 Intake and Output 08/08/19 08/09/19 19:00 07:00 Intake Total 240 ml Output Total 1000 ml 600 ml Balance -760 ml -600 ml Intake Oral 240 ml Output Urine Total 1000 ml 600 ml Height (Feet): 5 Height (Inches): 8.00 Weight (Pounds): 153 Objective General Appearance: moderate agitation EENT: PERRL/EOMI, normal ENT inspection Cardiovascular: normal rate Respiratory/Chest: lungs clear Abdomen: distended, hepatomegaly Edema: trace edema Neurologic: herpetology teacher II-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 Aug 09, 2019 15:47
[2019-08-09] MEDS ORDERED: MIRTAZAPINE15 M3 ORAL (15:50)
--- NOTE | 2019-08-09 15:52 | Discharge Instructions ---
Discharge Instructions Discharge Instructions Diet: 2 GM sodium (low sodium), 4 GM sodium (no salt added) Follow Up Orders patient will be transferred to [facility] Under Dr. Meade's care. He is under hospice care. DNR/DNI. For Congestive Heart Failure Reminder Report to your physician any weight gain of 5 pounds or more in one week. Sumeet Muñoz M.D. Aug 09, 2019 15:52
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
[2019-08-09 16:00] VITALS: BP 110/68
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
--- NOTE | 2019-08-09 17:10 | NUR ---
CHARGE NURSE NOTE: Spoke with Shannon (Adm. assistant store director of [facility]) . They are not able to accept patient during weekend. It will be done on Monday08/12/19.
--- NOTE | 2019-08-09 17:39 | NUR ---
NURSE NOTES: Gave report over the phone to licensed nurse
--- NOTE | 2019-08-09 19:26 | NUR ---
HAND-OFF: Report given to WAYLON Garcia.
--- NOTE | 2019-08-09 19:30 | NUR ---
NURSE NOTES: RECEIVED PATIENT LYING IN BED, AWAKE, CONFUSED, PANAMANIAN SPEAKING ONLY, ORIENTED TO NAME, REALITY ORIENTATION PROVIDED DURING ASSESSMENT, NO SIGNS AND SYMPTOMS OF ACUTE CARDIO RESPIRATORY DISTRESS/SHORTNESS OF BREATH, NO PERIPHERAL EDEMA NOTED, ABDOMEN ROUND, S/P THORACENTESIS, NO ILL EFFECTS NOTED. PARRA CATHETER INTACT, PATENT, DRAINING YELLOW URINE VIA GRAVITY, NO SEDEMENT NOTED, INCONTINENT OF BOWEL, CARE PROVIDED. FALL PRECAUTIONS ONGOING, SIDE RAILS UP X3/BED IN LOWEST POSITION FOR SAFETY. CALL LIGHT WITHIN REACH. FREQUENT ROUNDING FOR SAFETY/NEEDS. BED ALARM ACTIVATED FOR PREVENTIVE MEASURES.
[2019-08-09 20:00] VITALS: BP 132/64
--- NOTE | 2019-08-09 20:10 | NUR ---
NURSE NOTES: [facility] IN TO TRANSPORT PATIENT TO [facility], ACCOMPANIED BY 2 ATTENDANTS, PERSONAL BELONGINGS PROVIDED TO ATTENDANT, UNABLE TO SIGNS PERSONAL BELONGINGS LIST DUE TO MENTAL STATUS. VITALS STABLE, AFEBRILE, NO ACUTE DISTRESS, AM NURSE PROVIDED REPORT TO NURSE HIEU RN.
--- NOTE | 2019-08-13 15:08 | Diagnostic Imaging Report ---
Indications: Ascites Technique: Ultrasound used to localize optimal puncture site. Sterile prepping and draping right upper quadrant. Local anesthesia with 1% lidocaine. Under real-time ultrasound guidance, puncture peritoneal space using paracentesis needle. Stylet removed. Catheter placed to vacuum bottle suction. Total 2.8 liters of fluid aspirated. Patient tolerated procedure well, without immediate complication. Findings: Followup sonography demonstrates near complete resolution of peritoneal fluid. Impression: Successful ultrasound-guided paracentesis, yielding 2.8 liters of fluid
== END 2019-08-09 20:10 | DRG 720 ==
LOC: EDBD 17:41 → EMR 17:53 → EDBEDREQSVC 20:33 → 2W 21:11 → EDBEDREQ 21:26 → 2E 07-11 02:00 → 4E 07-19 20:43
PROC: 0W9G3ZZ Drainage of Peritoneal Cavity, Percutaneous Approach (ICD-10-PCS; principal; 2019-07-05)
PROC: 0W9G3ZZ Drainage of Peritoneal Cavity, Percutaneous Approach (ICD-10-PCS; 2019-07-16)
PROC: 0W9G3ZZ Drainage of Peritoneal Cavity, Percutaneous Approach (ICD-10-PCS; 2019-08-05)
DX: A41.01 Sepsis due to Methicillin susceptible Staphylococcus aureus (principal); J18.9 Pneumonia, unspecified organism; F10.231 Alcohol dependence with withdrawal delirium; K70.31 Alcoholic cirrhosis of liver with ascites; F10.229 Alcohol dependence with intoxication, unspecified; E87.6 Hypokalemia; G92 Toxic encephalopathy; K72.90 Hepatic failure, unspecified without coma; B85.0 Pediculosis due to Pediculus humanus capitis; S09.93XA Unspecified injury of face, initial encounter; X58.XXXA Exposure to other specified factors, initial encounter; Y92.9 Unspecified place or not applicable; D61.818 Other pancytopenia; D69.6 Thrombocytopenia, unspecified; D50.9 Iron deficiency anemia, unspecified; D68.4 Acquired coagulation factor deficiency; E83.51 Hypocalcemia; E83.42 Hypomagnesemia; R13.10 Dysphagia, unspecified; Z59.0 Homelessness; E87.0 Hyperosmolality and hypernatremia; K76.6 Portal hypertension; Z51.5 Encounter for palliative care
CPT/HCPCS: 36415; 70450; 71045; 74018; 76700; 76942; 80048; 80053; 80076; 80202; 80307; 80329; 81003; 82105; 82140; 82164; 82248; 82270; 82330; 82607; 82728; 82746; 82962; 83540; 83550; 83690; 83735; 84100; 84134; 84439; 84443; 84484; 85007; 85025; 85060; 85610; 85730; 86703; 86705; 86709; 86738; 86803; 86850; 86900; 86901; 86920; 87040; 87070; 87081; 87086; 87181; 87205; 87340; 89051; 93005; 93306; 93970; 96360; 96361; 99291; J3430; J8499